=== PATIENT | female | born 1940 | race Caucasian/White ===

== ENCOUNTER → 2016-06-18 | Outpatient (CLI) | payer OTHER ==
[~2016-06-18] MED LIST: ASPEC325 PO; ATV5 PO; CALCTAB5 PO; DILT120T8 PO; FOLI1TAB7 PO; LEUC5TAB PO; OXYC-57 PO; PRD/1 PO; RANI300T2 PO
--- NOTE | 2016-06-18 11:04 | DIAGNOSTIC IMAGING REPORT ---
RIGHT HAND MIN 3 VIEWS ROUTINE CLINICAL HISTORY: Rheumatoid arthritis. Osteoporosis. COMPARISON: None. DISCUSSION: The bones are osteopenic. There are subluxations at the level of the second through fifth metacarpal phalangeal joints. There is deformity involving the tuft of the distal phalanx of the fourth finger which is felt to be chronic. No acute fractures are visualized. No definite bony erosions are evident. IMPRESSION: 1. No acute fractures 2. Osteopenia 3. Subluxations at the level of the second through fifth metacarpal phalangeal joints Electronically signed by: Fermin Campos M.D. 06/18/2016 11:03 AM Dictated Date/Time: 06/18/2016 11:01 AM
== END | disposition home or self-care (01) ==
LOC: C.RAD1850 10:37
PROVIDERS: ATTEND Internal Medicine Rheumatology
DX: D89.9 Disorder involving the immune mechanism, unspecified (principal); M06.9 Rheumatoid arthritis, unspecified; M79.641 Pain in right hand; M81.0 Age-related osteoporosis without current pathological fracture; Z79.899 Other long term (current) drug therapy; M85.841 Other specified disorders of bone density and structure, right hand

== ENCOUNTER → 2016-10-17 | Outpatient (CLI) | payer OTHER ==
[~2016-10-17] MED LIST changes: -OXYC-57 PO
[2016-10-17 10:06] LABS: BASO % 1.4 %; COMPLETE YES; EOS % 4.4 %; HEMATOCRIT 39.4 % (37-47); IG% 0.3 %; LYMPH % 42.1 %; LYMPH ABS # 2.94 K/uL (1.2-3.4); MEAN CORPUSCULAR HEMOGLOBIN 31.7 pg (25-34); MEAN CORPUSCULAR HGB CONC 33.8 g/dl (32-36); MEAN PLATELET VOLUME 8.9 fL (7.4-10.4); MONO % 9.3 %; NEUT % 42.5 %; PLATELET COUNT 292 K/uL (130-400); RED BLOOD COUNT 4.19 M/uL (4.2-5.4); WHITE BLOOD COUNT 6.98 K/uL (4.8-10.8)
[2016-10-17 10:20] LABS: CREATININE 0.82 mg/dl (0.60-1.20)
[2016-10-17 10:23] LABS: ALKALINE PHOSPHATASE 95 U/L (45-117); ALT/SGPT 28 U/L (12-78); AST/SGOT 20 U/L (15-37)
== END | disposition home or self-care (01) ==
LOC: C.LAB1850 08:58
PROVIDERS: ATTEND Internal Medicine Rheumatology
DX: M06.9 Rheumatoid arthritis, unspecified (principal); D89.9 Disorder involving the immune mechanism, unspecified

== ENCOUNTER → 2017-01-01 | Outpatient (CLI) | payer OTHER | END | disposition home or self-care (01) | LOC: C.PATHSPEC 12:50 | PROVIDERS: ATTEND Ophthalmology | DX: L82.1 Other seborrheic keratosis (principal) ==

== ENCOUNTER → 2017-01-16 | Outpatient (CLI) | payer OTHER ==
[2017-01-16 09:31] LABS: BASO % 1.6 %; BASO ABS # 0.12 K/uL (0-0.2); COMPLETE YES; EOS % 5.2 %; HEMATOCRIT 41.2 % (37-47); IG% 0.4 %; LYMPH % 42.9 %; LYMPH ABS # 3.19 K/uL (1.2-3.4); MEAN CELL VOLUME 94.9 fL (80-100); MEAN CORPUSCULAR HEMOGLOBIN 31.3 pg (25-34); MEAN PLATELET VOLUME 9.4 fL (7.4-10.4); MONO % 9.4 %; NEUT % 40.5 %; PLATELET COUNT 309 K/uL (130-400); RED BLOOD COUNT 4.34 M/uL (4.2-5.4); WHITE BLOOD COUNT 7.44 K/uL (4.8-10.8)
[2017-01-16 10:01] LABS: ALT/SGPT 29 U/L (12-78); AST/SGOT 24 U/L (15-37); CREATININE 0.91 mg/dl (0.60-1.20)
[2017-01-16 10:04] LABS: ALKALINE PHOSPHATASE 95 U/L (45-117)
== END | disposition home or self-care (01) ==
LOC: C.LAB1850 08:43
PROVIDERS: ATTEND Internal Medicine Rheumatology
DX: M06.9 Rheumatoid arthritis, unspecified (principal); Z79.899 Other long term (current) drug therapy; D89.9 Disorder involving the immune mechanism, unspecified

== ENCOUNTER → 2017-05-07 | Outpatient (CLI) | payer OTHER ==
[~2017-05-07] MED LIST changes: +APIX1TAB3 PO; -ASPEC325 PO; -ATV5 PO; +CALC600T37 PO; -CALCTAB5 PO; -DILT120T8 PO; +ETAN50IN2 SC; -FOLI1TAB7 PO; +FOLI1TAB8 PO; +LORA-741 PO; +LPR25 PO; +METH7.5T PO; +METO25TA56 PO; +METO50TA16 PO
--- NOTE | 2017-05-07 12:45 | DIAGNOSTIC IMAGING REPORT ---
CHEST 2 VIEWS ROUTINE HISTORY: Atrial fibrillation. COMPARISON: Chest 04/29/2017. FINDINGS: Trace right pleural effusion has improved. Mild emphysema. The heart is mildly enlarged. No evidence for pulmonary edema. No new focal lung consolidations to suggest pneumonia. Suture material within the right lung apex is again noted. IMPRESSION: Improvement in the trace right pleural effusion. Mild emphysema. Electronically signed by: Martinez Arreola M.D. 05/07/2017 12:43 PM Dictated Date/Time: 05/07/2017 12:42 PM
== END | disposition home or self-care (01) ==
LOC: C.RADBC 12:01
PROVIDERS: ATTEND Physician Assistant Medical
DX: I48.91 Unspecified atrial fibrillation (principal)

== ENCOUNTER 2017-05-08 15:02 | Inpatient (IN) | payer OTHER ==
[~2017-05-08] VITALS: Ht 160 cm; Wt 60.0 kg
[~2017-05-08 15:02] MED LIST changes: -METO25TA56 PO; -METO50TA16 PO
[2017-05-08] MEDS ORDERED: METOPROLOL TARTRATE 25 MG TAB PO STA (15:44)
[2017-05-08] MEDS ORDERED: METOPROLOL TARTRATE 1 MG/ML VIAL IV STA ×3 (15:44→17:10)
[2017-05-08 15:57] LABS: BASO % 0.9 %; EOS % 1.2 %; EOS ABS # 0.13 K/uL (0-0.5); HEMATOCRIT 41.1 % (37-47); HEMOGLOBIN 13.6 g/dL (12.0-16.0); IG# 0.04 K/uL (0.00-0.02); LYMPH % 21.1 %; LYMPH ABS # 2.33 K/uL (1.2-3.4); MEAN CELL VOLUME 96.5 fL (80-100); MEAN CORPUSCULAR HEMOGLOBIN 31.9 pg (25-34); MEAN CORPUSCULAR HGB CONC 33.1 g/dl (32-36); MEAN PLATELET VOLUME 9.8 fL (7.4-10.4); MONO % 11.1 %; MONO ABS # 1.22 K/uL (0.11-0.59); NEUT % 65.3 %; NEUT ABS # 7.22 K/uL (1.4-6.5); PLATELET COUNT 284 K/uL (130-400); RED CELL DISTRIBUTION WIDTH CV 14.4 % (11.5-14.5); RED CELL DISTRIBUTION WIDTH SD 50.6 fL (36.4-46.3); WHITE BLOOD COUNT 11.04 K/uL (4.8-10.8)
[2017-05-08 16:04] LABS: ALBUMIN 3.6 gm/dl (3.4-5.0); ALT/SGPT 74 U/L (12-78); BLOOD UREA NITROGEN 15 mg/dl (7-18); CALCIUM 9.1 mg/dl (8.5-10.1); CARBON DIOXIDE 25 mmol/L (21-32); CREATININE 0.98 mg/dl (0.60-1.20); GLUCOSE 154 mg/dl (70-99); SODIUM 137 mmol/L (136-145)
[2017-05-08 16:08] LABS: INR 1.1 (0.9-1.1); PTT PATIENT 26.8 SECONDS (21.0-31.0)
--- NOTE | 2017-05-08 16:08 | EMERGENCY ROOM VISIT NOTE ---
History Report prepared by Mervin: Magdalena Medina Under the Supervision of: Dr. Jalen Holbrook M.D. First contact with patient: 15:28 Chief Complaint: CARDIAC ASSESSMENT Stated Complaint: RECENT A-FIB, HR 130+, WEAKNESS, COUGH, SOB Nursing Triage Summary: patient states she was diagnosed with A. fib 1 week ago. has had shortness of breath since diagnosed. patient states she checked her heart rate and it has been high. PCP increased metoprolol. History of Present Illness The patient is a 76 year old white female with a past medical history of asthma , HTN, RA, HLD, reflux, pneumothorax, and thoracotomy who presents to the ED with a cc of shortness of breath beginning earlier today. The patient was diagnosed with A-fib 1 week ago and started on Eliquis. She saw her PCP yesterday who increased her beta angelito from 25mg to 50mg in the morning and 25mg at night. Today is the first day that she started this dosage. The patient states that she woke up this morning feeling short of breath that was worsened with walking around and exerting herself. She took her pulse and noticed that it was fast. She did not feel like her heart was racing. Negative LOC, recent falls, fevers, chills, cough, chest pain, nausea, vomiting, pain or swelling in legs. She did have a flu shot this year. Source of History: patient Onset: this morning Position: chest (respiratory) Quality: other (shortness of breath) Timing: constant Modifying Factors (Worsening): exertion Modifying Factors (Relieving): rest Associated Symptoms: No LOC, No fevers, No chills, No cough, No chest pain, No nausea, No vomiting Note: Pt denies pain or swelling in legs. Review of Systems See HPI for pertinent positives and negatives. A total of ten systems were reviewed and were otherwise negative. Past Medical & Surgical Medical Problems: (1) Atrial fibrillation with rapid ventricular response (2) Bronchitis (3) COPD (chronic obstructive pulmonary disease) (4) Pulmonary vascular congestion Family History Hypertension Social History Smoking Status: Former Smoker Alcohol Use: occasionally Marital Status: Housing Status: lives with family Occupation Status: retired Current/Historical Medications Scheduled Apixaban (Eliquis), 5 MG PO BID Calcium (Calcium), 600 MG PO QAM Etanercept (Enbrel), 50 MG SC WK Folic Acid (Folvite), 1 MG PO QAM Leucovorin Calcium (Leucovorin Calcium), 10 MG PO WK Lorazepam (Ativan), 0.5 MG PO HS Methotrexate (Trexall), 7.5 MG PO WK Metoprolol Tartrate (Lopressor) (Lopressor), 50 MG PO QAM Metoprolol Tartrate (Lopressor) (Lopressor), 25 MG PO QPM Prednisone (Prednisone), 3 MG PO QAM Ranitidine (Zantac), 300 MG PO QAM Allergies Coded Allergies: Morphine (Verified Adverse Reaction, Mild, NAUSEA, 05/08/17) Physical Exam Vital Signs Date Time Temp Pulse Resp B/P (MAP) Pulse Ox O2 Delivery O2 Flow Rate FiO2 05/08/17 18:32 113 18 143/105 96 Room Air 05/08/17 17:38 124 121/101 95 05/08/17 17:37 128 05/08/17 17:30 130 24 121/94 95 Room Air 05/08/17 17:30 131 135/109 05/08/17 16:54 132 114/90 05/08/17 16:53 134 24 114/90 96 Room Air 05/08/17 15:58 135 22 123/96 95 Room Air 05/08/17 15:53 130 120/89 05/08/17 15:33 95 Room Air 05/08/17 15:33 Room Air 05/08/17 15:32 130 05/08/17 15:08 36.7 132 18 138/94 98 Room Air Physical Exam GENERAL: Awake, alert, well-appearing, NAD HENT: Normocephalic, atraumatic. EYES: Normal conjunctiva. Sclera non-icteric. NECK: Supple. No nuchal rigidity. FROM. RESPIRATORY: CTAB, no rhonchi, wheezing, crackles CARDIAC: Tachycardic and irregular, no MRG ABDOMEN: Soft, NTND, BS+ MSK: No chest wall TTP, no LE edema NEURO: GCS 15, CN 2-12 intact, moves all 4s on command SKIN: No rash or jaundice noted. Medical Decision & Procedures ER Provider Diagnostic Interpretation: Radiology results as stated below per my review and radiologist interpretation: SINGLE VIEW CHEST CLINICAL HISTORY: Dyspnea. FINDINGS: An AP, portable, upright chest radiograph is compared to study dated 05/04/2017. The examination is degraded by portable technique and patient rotation. The heart is enlarged and there is atherosclerotic calcification of the thoracic and. There is mild pulmonary vascular congestion. Bibasilar airspace opacities likely represent atelectasis. No large pleural effusion is seen. Suture material is noted at the right apex and there is biapical scarring. No pneumothorax is seen. The skeletal structures are osteopenic. The bony thorax is grossly intact. Arthritic change is noted in the shoulders and thoracic spine. IMPRESSION: 1. Cardiomegaly with mild pulmonary vascular congestion. 2. Bibasilar airspace opacities likely represent atelectasis. Correlate clinically for evidence of superimposed pneumonia. 3. No large pleural effusion is identified. Electronically signed by: Josh España M.D. 05/08/2017 4:09 PM Dictated Date/Time: 05/08/2017 4:08 PM Laboratory Results 05/08/17 15:30 Red Blood Count 4.26, Mean Corpuscular Volume 96.5, Mean Corpuscular Hemoglobin 31.9, Mean Corpuscular Hemoglobin Concent 33.1, Mean Platelet Volume 9.8, Neutrophils (%) (Auto) 65.3, Lymphocytes (%) (Auto) 21.1, Monocytes (%) (Auto) 11.1, Eosinophils (%) (Auto) 1.2, Basophils (%) (Auto) 0.9, Neutrophils # (Auto ) 7.22, Lymphocytes # (Auto) 2.33, Monocytes # (Auto) 1.22, Eosinophils # (Auto ) 0.13, Basophils # (Auto) 0.10 05/08/17 15:30 Test 05/08/17 15:30 05/08/17 15:42 05/08/17 16:40 White Blood Count 11.04 K/uL (4.8-10.8) Red Blood Count 4.26 M/uL (4.2-5.4) Hemoglobin 13.6 g/dL (12.0-16.0) Hematocrit 41.1 % (37-47) Mean Corpuscular Volume 96.5 fL (80-100) Mean Corpuscular Hemoglobin 31.9 pg (25-34) Mean Corpuscular Hemoglobin Concent 33.1 g/dl (32-36) Platelet Count 284 K/uL (130-400) Mean Platelet Volume 9.8 fL (7.4-10.4) Neutrophils (%) (Auto) 65.3 % Lymphocytes (%) (Auto) 21.1 % Monocytes (%) (Auto) 11.1 % Eosinophils (%) (Auto) 1.2 % Basophils (%) (Auto) 0.9 % Neutrophils # (Auto) 7.22 K/uL (1.4-6.5) Lymphocytes # (Auto) 2.33 K/uL (1.2-3.4) Monocytes # (Auto) 1.22 K/uL (0.11-0.59) Eosinophils # (Auto) 0.13 K/uL (0-0.5) Basophils # (Auto) 0.10 K/uL (0-0.2) RDW Standard Deviation 50.6 fL (36.4-46.3) RDW Coefficient of Variation 14.4 % (11.5-14.5) Immature Granulocyte % (Auto) 0.4 % Immature Granulocyte # (Auto) 0.04 K/uL (0.00-0.02) Prothrombin Time 11.8 SECONDS (9.0-12.0) Prothromb Time International Ratio 1.1 (0.9-1.1) Activated Partial Thromboplast Time 26.8 SECONDS (21.0-31.0) Partial Thromboplastin Ratio 1.0 Anion Gap 7.0 mmol/L (3-11) Est Creatinine Clear Calc Drug Dose 40.4 ml/min Estimated GFR () 64.9 Estimated GFR (Non- 56.0 BUN/Creatinine Ratio 15.3 (10-20) Calcium Level 9.1 mg/dl (8.5-10.1) Total Bilirubin 1.1 mg/dl (0.2-1) Aspartate Amino Transf (AST/SGOT) 41 U/L (15-37) Alanine Aminotransferase (ALT/SGPT) 74 U/L (12-78) Alkaline Phosphatase 116 U/L (45-117) Troponin I < 0.015 ng/ml (0-0.045) Pro-B-Type Natriuretic Peptide 5141 pg/ml (0-1800) Total Protein 7.2 gm/dl (6.4-8.2) Albumin 3.6 gm/dl (3.4-5.0) Globulin 3.6 gm/dl (2.5-4.0) Albumin/Globulin Ratio 1.0 (0.9-2) Influenza Type A Antigen Neg for Influ A (NEG) Influenza Type B Antigen Neg for Influ B (NEG) Urine Color DK YELLOW Urine Appearance CLEAR (CLEAR) Urine pH 6.0 (4.5-7.5) Urine Specific [place] 1.023 (1.000-1.030) Urine Protein 1+ (NEG) Urine Glucose (UA) NEG (NEG) Urine Ketones 1+ (NEG) Urine Occult Blood 2+ (NEG) Urine Nitrite NEG (NEG) Urine Bilirubin NEG (NEG) Urine Urobilinogen NEG (NEG) Urine Leukocyte Esterase SMALL (NEG) Urine WBC (Auto) 10-30 /hpf (0-5) Urine RBC (Auto) >30 /hpf (0-4) Urine Hyaline Casts (Auto) 5-10 /lpf (0-5) Urine Epithelial Cells (Auto) 20-30 /lpf (0-5) Urine Bacteria (Auto) NEG (NEG) Laboratory results reviewed by me. Medications Administered Medications (Trade) Dose Ordered Sig/[place] Route Start Time Stop Time Status Last Admin Dose Admin Metoprolol Tartrate (Lopressor Tab) 25 mg ONE STAT PO 05/08/17 15:44 05/08/17 15:45 DC 05/08/17 16:32 25 MG Metoprolol Tartrate (Lopressor Iv) 5 mg NOW STAT IV 05/08/17 15:44 05/08/17 15:45 DC 05/08/17 15:53 5 MG Metoprolol Tartrate (Lopressor Iv) 5 mg NOW STAT IV 05/08/17 16:46 05/08/17 16:47 DC 05/08/17 16:54 5 MG Metoprolol Tartrate (Lopressor Iv) 5 mg NOW STAT IV 05/08/17 17:10 05/08/17 17:11 DC 05/08/17 17:30 5 MG Digoxin 250 mcg/ Syringe 10 ml @ 2 mls/min NOW ONCE IV 05/08/17 17:15 05/08/17 17:19 DC 05/08/17 17:37 2 MLS/MIN Ondansetron HCl (Zofran Inj) 4 mg STK-MED ONCE .ROUTE 05/08/17 18:50 05/08/17 18:51 DC 05/08/17 18:55 4 MG ECG Indication: SOB/dyspnea Rate (beats per minute): 132 Rhythm: atrial fibrillation (with RVR) Findings: other (normal QRS interval; normal axis; no overt STS changes or TWI) Change: Patient's electrocardiogram interpreted by me. ED Course 1528: The patient was evaluated in room B12B. A complete history and physical exam was performed. 1645: Upon reevaluation the patient's HR is still elevated but she is asymptomatic. 1709: I reassessed the patient at this time. I discussed the results and treatment plan with the patient. I answered all pertaining questions that she had. She expressed understanding and verbalized agreement. 1712: I discussed the patient's case with Dr. Escalante of [facility] cardiology. He recommended Digoxin. 1728: I spoke with Dr. Sosa. We discussed the patients case. The patient will be evaluated by the [facility] for further management. 1731: The patient is in agreement with the treatment plan. Medical Decision Differential diagnosis: Etiologies such as premature contractions, electrolyte abnormality, cardiac dysrhythmia, thyroid dysfunction, pulmonary embolism, infection, gastrointestinal, as well as others were entertained. The patient is a 76 year old white female with a past medical history of asthma , HTN, RA, HLD, reflux, pneumothorax, and thoracotomy who presents to the ED with a cc of shortness of breath beginning earlier today. Patient was seen and evaluated the bedside. Patient did complain of some shortness of breath. Patient states that she had some dyspnea on exertion but at rest she was fairly comfortable. Patient noticed that she had an elevated heart rate. Patient does have recent known history of atrial fibrillation. Patient was admitted and did have changed from diltiazem to metoprolol. Patient did have her recent medication change to where she was taking 25 twice a day was now taking 50 mg in the morning and then 25 mg in the evening. Patient did state that she took her home dose this morning. Patient has been on Elequis. This was started around the time of discharge which is approximately 1 week prior. Patient did have a by mouth loading dose of 25 mg and was given 5 subsequent doses of IV Lopressor. Patient still had persistent tachycardia. Patient was otherwise asymptomatic at rest and the patient did have stable blood pressures. I did speak with cardiology. They're recommended to dig load. Patient was given 250 mics IV. I did discuss the patient with the hospitalist to agreed to further evaluate and treat the patient. Patient's chest x-ray and labs did show some volume overload which was likely rate related. Medication Reconcilliation Current Medication List: was personally reviewed by me Blood Pressure Screening Patient's blood pressure: Normal blood pressure Consults Time Called: 1709 Consulting Physician: Dr. Escalante Returned Call: 1712 I discussed the patient's case with Dr. Escalante of [facility] cardiology. He recommended Digoxin. Additional Consults: Time Called: 171 Consulted Physician: Dr. Sosa Returned Call: 1728 Additional Comments: I spoke with Dr. Sosa. We discussed the patients case. The patient will be evaluated by the [facility] for further management. Impression Primary Impression: Atrial fibrillation with rapid ventricular response Additional Impressions: Dyspnea CHF (congestive heart failure) Critical Care I have personally spent greater than 50 minutes of critical care time in the direct management of this patient. This includes bedside care, interpretation of diagnostic studies, and testing, discussion with consultants, patient, and family members, and other required patient management activities. This 50 minutes is in excess of all separately billable procedures. Scribe Attestation The scribe's documentation has been prepared under my direction and personally reviewed by me in its entirety. I confirm that the note above accurately reflects all work, treatment, procedures, and medical decision making performed by me. Departure Information Dispostion Being Evaluated By Hospitalist Referrals Rd Madden M.D. (PCP) Patient Instructions [facility] Problem Qualifiers Additional Impressions: Dyspnea Dyspnea type: dyspnea on exertion Qualified Codes: R06.09 - Other forms of dyspnea CHF (congestive heart failure) Congestive heart failure type: diastolic Congestive heart failure chronicity : acute Qualified Codes: I50.31 - Acute diastolic (congestive) heart failure
[2017-05-08 16:09] LABS: ALKALINE PHOSPHATASE 116 U/L (45-117); AST/SGOT 41 U/L (15-37); TOTAL PROTEIN 7.2 gm/dl (6.4-8.2)
--- NOTE | 2017-05-08 16:11 | DIAGNOSTIC IMAGING REPORT ---
SINGLE VIEW CHEST CLINICAL HISTORY: Dyspnea. FINDINGS: An AP, portable, upright chest radiograph is compared to study dated 05/04/2017. The examination is degraded by portable technique and patient rotation. The heart is enlarged and there is atherosclerotic calcification of the thoracic and. There is mild pulmonary vascular congestion. Bibasilar airspace opacities likely represent atelectasis. No large pleural effusion is seen. Suture material is noted at the right apex and there is biapical scarring. No pneumothorax is seen. The skeletal structures are osteopenic. The bony thorax is grossly intact. Arthritic change is noted in the shoulders and thoracic spine. IMPRESSION: 1. Cardiomegaly with mild pulmonary vascular congestion. 2. Bibasilar airspace opacities likely represent atelectasis. Correlate clinically for evidence of superimposed pneumonia. 3. No large pleural effusion is identified. Electronically signed by: Josh España M.D. 05/08/2017 4:09 PM Dictated Date/Time: 05/08/2017 4:08 PM
[2017-05-08] MEDS ORDERED: METO25TA56 PO (16:25)
[2017-05-08] MEDS ORDERED: METO50TA16 PO (16:25)
[2017-05-08] MEDS ORDERED: DIGOXIN IV 250 MCG in SYRINGE 9 ML IV ONE (17:15)
[2017-05-08 17:24] LABS: INFLUENZA B ANTIGEN Neg for Influ B (NEG)
[2017-05-08] MEDS ORDERED: ONDANSETRON INJ 2 MG/ML 2 ML VIAL ONE (18:50)
--- NOTE | 2017-05-08 19:24 | History and Physical ---
History & Physical Date & Time of Service: May 08, 2017 at 18:54 Chief Complaint: Recent A-Fib, Hr 130+, Weakness, Cough, Sob Primary Care Physician: Rd Madden M.D. History of Present Illness Source: patient 76 y/o F Hx RA, HTN. Pt had URI symptoms one week prior and presented to her primary MD for evaluation. She was diagnosed with AF and sent to the ER for evaluation. Her rate was controlled with Metoprolol, she was placed on Eliquis and DCd. She did not revert to a sinus rhythm. The pt was feeling weak today and her son checked her pulse, noting that it was high. On arrival to the ER she had a HR of 140-150. This did not immediately slow down with 3 doses of 5mg Metoprolol. She was administered IV Digoxin. An XR was consistent with vascular congestion. She c/o a persistent cough and nausea. She vomited a small amount in the ER. She denies diaphoresis or a fever. Past Medical/Surgical History PMH: 1. Rheumatoid arthritis - treated with Prednisone and Enbrel 2. HTN 3. 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 Right-sided thoracotomy for pneumothorax 2. BL foot surgery Family History Hypertension father - CHF, COPD - age 79; also had valve replacement mother - age 60 - gangrene of her leg/sepsis/blood clots then Social History Former Smoker (quit 25 years ago; smoked 20 years, 1/2 ppd ) occasionally ETOH (5 children ) Smoking Status: Former Smoker Marital Status: Housing status: lives alone Occupational Status: retired Immunizations History of Influenza Vaccine: Yes Influenza Vaccine Date: Jan 29, 2009 History of Tetanus Vaccine?: Unknown History of Pneumococcal: Yes History of Hepatitis B Vaccine: Unknown Multi-Drug Resistant Organisms History of MDRO: No Allergies Coded Allergies: Morphine (Verified Adverse Reaction, Mild, NAUSEA, 05/08/17) Home Medications Scheduled Apixaban (Eliquis), 5 MG PO BID Calcium (Calcium), 600 MG PO QAM Etanercept (Enbrel), 50 MG SC WK Folic Acid (Folvite), 1 MG PO QAM Leucovorin Calcium (Leucovorin Calcium), 10 MG PO WK Lorazepam (Ativan), 0.5 MG PO HS Methotrexate (Trexall), 7.5 MG PO WK Metoprolol Tartrate (Lopressor) (Lopressor), 50 MG PO QAM Metoprolol Tartrate (Lopressor) (Lopressor), 25 MG PO QPM Prednisone (Prednisone), 3 MG PO QAM Ranitidine (Zantac), 300 MG PO QAM Review of Systems Constitutional: + weakness, + fatigue, No fever, No chills, No sweats Eyes: No worsening of vision ENT: + nasal symptoms, No hearing loss, No unusual epistaxis Respiratory: + cough, + sputum, No wheezing, No shortness of breath, No dyspnea on exertion Cardiovascular: + palpitations, No chest pain, No orthopnea, No PND Abdomen: + nausea, + vomiting, No pain Musculoskeletal: No joint pain Genitourinary - Female: No dysuria, No urinary frequency, No urinary urgency Neurologic: No memory loss, No paralysis, No weakness Psychiatric: No depression symptoms Endocrine: + fatigue Hematologic / Lymphatic: No abnormal bleeding/bruising Integumentary: No rash Physical Exam Vital Signs Date Time Temp Pulse Resp B/P (MAP) Pulse Ox O2 Delivery O2 Flow Rate FiO2 05/08/17 18:32 113 18 143/105 96 Room Air 05/08/17 17:38 124 121/101 95 05/08/17 17:37 128 05/08/17 17:30 130 24 121/94 95 Room Air 05/08/17 17:30 131 135/109 05/08/17 16:54 132 114/90 05/08/17 16:53 134 24 114/90 96 Room Air 05/08/17 15:58 135 22 123/96 95 Room Air 05/08/17 15:53 130 120/89 05/08/17 15:33 95 Room Air 05/08/17 15:33 Room Air 05/08/17 15:32 130 05/08/17 15:08 36.7 132 18 138/94 98 Room Air General Appearance: WD/WN, no apparent distress Head: normocephalic Eyes: normal inspection ENT: normal ENT inspection, pharynx normal Neck: supple, no JVD Respiratory/Chest: chest non-tender, lungs clear, normal breath sounds Cardiovascular: no edema, no gallop, + irregularly irregular Abdomen/GI: normal bowel sounds, non tender, soft Back: normal inspection, no CVA tenderness Extremities/Musculoskelatal: normal inspection, no calf tenderness, normal capillary refill, no pedal edema, normal range of motion Neurologic/Psych: uppers edge burnisher II-XII nml as tested, no motor/sensory deficits, alert, oriented x 3 Skin: normal color Diagnostics Laboratory Results Results Past 24 Hours Test 05/08/17 15:30 05/08/17 15:42 05/08/17 16:40 Range/Units White Blood Count 11.04 4.8-10.8 K/uL Red Blood Count 4.26 4.2-5.4 M/uL Hemoglobin 13.6 12.0-16.0 g/dL Hematocrit 41.1 37-47 % Mean Corpuscular Volume 96.5 80-100 fL Mean Corpuscular Hemoglobin 31.9 25-34 pg Mean Corpuscular Hemoglobin Concent 33.1 32-36 g/dl Platelet Count 284 130-400 K/uL Mean Platelet Volume 9.8 7.4-10.4 fL Neutrophils (%) (Auto) 65.3 % Lymphocytes (%) (Auto) 21.1 % Monocytes (%) (Auto) 11.1 % Eosinophils (%) (Auto) 1.2 % Basophils (%) (Auto) 0.9 % Neutrophils # (Auto) 7.22 1.4-6.5 K/uL Lymphocytes # (Auto) 2.33 1.2-3.4 K/uL Monocytes # (Auto) 1.22 0.11-0.59 K/uL Eosinophils # (Auto) 0.13 0-0.5 K/uL Basophils # (Auto) 0.10 0-0.2 K/uL RDW Standard Deviation 50.6 36.4-46.3 fL RDW Coefficient of Variation 14.4 11.5-14.5 % Immature Granulocyte % (Auto) 0.4 % Immature Granulocyte # (Auto) 0.04 0.00-0.02 K/uL Prothrombin Time 11.8 9.0-12.0 SECONDS Prothromb Time International Ratio 1.1 0.9-1.1 Activated Partial Thromboplast Time 26.8 21.0-31.0 SECONDS Partial Thromboplastin Ratio 1.0 Sodium Level 137 136-145 mmol/L Potassium Level 4.0 3.5-5.1 mmol/L Chloride Level 105 98-107 mmol/L Carbon Dioxide Level 25 21-32 mmol/L Anion Gap 7.0 3-11 mmol/L Blood Urea Nitrogen 15 7-18 mg/dl Creatinine 0.98 0.60-1.20 mg/dl Est Creatinine Clear Calc Drug Dose 40.4 ml/min Estimated GFR () 64.9 Estimated GFR (Non- 56.0 BUN/Creatinine Ratio 15.3 10-20 Random Glucose 154 70-99 mg/dl Calcium Level 9.1 8.5-10.1 mg/dl Total Bilirubin 1.1 0.2-1 mg/dl Aspartate Amino Transf (AST/SGOT) 41 15-37 U/L Alanine Aminotransferase (ALT/SGPT) 74 12-78 U/L Alkaline Phosphatase 116 45-117 U/L Troponin I < 0.015 0-0.045 ng/ml Pro-B-Type Natriuretic Peptide 5141 0-1800 pg/ml Total Protein 7.2 6.4-8.2 gm/dl Albumin 3.6 3.4-5.0 gm/dl Globulin 3.6 2.5-4.0 gm/dl Albumin/Globulin Ratio 1.0 0.9-2 Influenza Type A Antigen Neg for Influ A NEG Influenza Type B Antigen Neg for Influ B NEG Urine Color DK YELLOW Urine Appearance CLEAR CLEAR Urine pH 6.0 4.5-7.5 Urine Specific [place] 1.023 1.000-1.030 Urine Protein 1+ NEG Urine Glucose (UA) NEG NEG Urine Ketones 1+ NEG Urine Occult Blood 2+ NEG Urine Nitrite NEG NEG Urine Bilirubin NEG NEG Urine Urobilinogen NEG NEG Urine Leukocyte Esterase SMALL NEG Urine WBC (Auto) 10-30 0-5 /hpf Urine RBC (Auto) >30 0-4 /hpf Urine Hyaline Casts (Auto) 5-10 0-5 /lpf Urine Epithelial Cells (Auto) 20-30 0-5 /lpf Urine Bacteria (Auto) NEG NEG Diagnostic Radiology CXR: 1. Cardiomegaly with mild pulmonary vascular congestion. 2. Bibasilar airspace opacities likely represent atelectasis. Correlate clinically for evidence of superimposed pneumonia. 3. No large pleural effusion is identified. EKG AF/RVR Impression Assessment and Plan 76 y/o F Hx RA, HTN. Pt had URI symptoms one week prior and presented to her primary MD for evaluation. She was diagnosed with AF and sent to the ER for evaluation. Her rate was controlled with Metoprolol, she was placed on Eliquis and DCd. She did not revert to a sinus rhythm. The pt was feeling weak today and her son checked her pulse, noting that it was high. On arrival to the ER she had a HR of 140-150. This did not immediately slow down with 3 doses of 5mg Metoprolol. She was administered IV Digoxin. An XR was consistent with vascular congestion. She c/o a persistent cough and nausea. She vomited a small amount in the ER. She denies diaphoresis or a fever. 1) Rapid AF - Pt provided with IV Metoprolol and IV Dig so that we will give her some time to slow down. The cardiology service was contacted and will consider cardioversion if there is no improvement. She will be maintained on Eliquis. 2) RA - cont Prednisone - Enbrel as outpt 3) HTN - cont Metoprolol PO with holding parameters 4) Vascular congestion on CXR with weakness and persistent cough - there is no significant JVD - she may be developing overload from uncontrolled AF. Would consider diuretic administration if SOB progresses - may resolve with rate control. Full code - anticoagulated with Eliquis Total time for this admit including review of labs, meds, imaging, recent records - discussion with pt and ER attending - 38 min Level of Care Telemetry Resuscitation Status FULL RESUSCITATION VTE Prophylaxis Given or contraindicated: Other Anticoagulation
[2017-05-08] MEDS ORDERED: ACETAMINOPHEN 325 MG TAB PO PRN (19:30)
[2017-05-08] MEDS ORDERED: ALUMINUM/MAGNESIUM/SIMETH (MAALOX MAX) 30 ML UDC PO PRN (19:30)
[2017-05-08] MEDS ORDERED: MAGNESIUM HYDROXIDE SUSP 30 ML UDC PO PRN (19:30)
[2017-05-08] MEDS ORDERED: ONDANSETRON INJ 2 MG/ML 2 ML VIAL IV PRN (19:30)
[2017-05-08] MEDS ORDERED: POLYETHYLENE (MIRALAX) 17 GM PACK PO PRN (19:30)
[2017-05-08] MEDS ORDERED: IV FLUIDS COMPLETED PRN (20:30)
[2017-05-08 20:45] VITALS: BP 120/75; PULSE 124; TEMP 37.5; O2SAT 91; Ht 160 cm; Wt 60.0 kg
[2017-05-08] MEDS ORDERED: METOPROLOL TARTRATE 25 MG TAB PO SCH (21:00)
[2017-05-08] MEDS: LORAZEPAM 0.5 MG TAB PO SCH (22:17)
[2017-05-08] MEDS: APIXABAN 2.5 MG TAB PO SCH (22:17)
[2017-05-08 23:25] VITALS: BP 127/80; PULSE 94; TEMP 37.6; O2SAT 93
[2017-05-09] VITALS (8 sets, daily range): BP systolic 113–126; BP diastolic 73–81; PULSE 62–120; TEMP 37–37.4; O2SAT 90–95
[2017-05-09] MEDS: APIXABAN 2.5 MG TAB PO SCH ×2 (08:49→21:42)
[2017-05-09] MEDS: RANITIDINE HCL 150 MG TAB PO SCH (08:50)
[2017-05-09] MEDS ORDERED: METOPROLOL TARTRATE 50 MG TAB PO SCH (09:00)
--- NOTE | 2017-05-09 09:54 | Cardiology Consultation ---
Cardiology Consultation Date of Consultation: May 09, 2017. Requesting Physician: Sheila Reason for Consultation: AF with RVR Pt evaluation today including: conversation w/ patient, physical exam, chart review, lab review, review of studies, review of inpatient medication list, conversation w/ attending History of Present Illness The patient is a 76-year-old woman with a recent admission for atrial fibrillation who was seen by her primary care physician yesterday. At that time the patient had noted some exercise intolerance and was discovered to have elevated heart rates. She was prescribed a higher dose of metoprolol but over the course of the next 24 hours she fell worse continue, continue to have high heart rates and was evaluated at [facility]. She also had an element of dyspnea on exertion. She has not had dizziness or lightheadedness. She is not aware of any palpitations. She is not aware of any high heart rates in the she measures them with her home blood pressure cuff. She states that her heart rates have been high since her prior discharge. Normally she exercises on a routine basis. She is accustomed to ambulating up to 3 miles daily. Recently she has not been able to ambulate as far primarily due to fatigue. She denies any orthopnea. She has not noticed any swelling in her lower extremities. She has not report any symptoms of chest discomfort. She has been compliant with her medications including Eliquis. Past Medical/Surgical History Asthma Gastroesophageal reflux Hyperlipidemia Rheumatoid arthritis Hypertension Cavernous Carotid aneurysm Osteoporosis Secondary hyperparathyroidism Atrial fibrillation Surgical history Cataract Foot surgery Lung resection Family History Hypertension Social History Smoking Status: Former Smoker History of Alcohol Use: No Currently lives independently Review of Systems No recent constitutional symptoms such as fevers or chills All Other Systems: Reviewed and Negative Allergies Coded Allergies: Morphine (Verified Adverse Reaction, Mild, NAUSEA, 05/08/17) Medications Current Inpatient Medications Medications (Trade) Dose Ordered Sig/[place] Route Start Time Stop Time Status Last Admin Dose Admin Folic Acid (Folvite Tab) 1 mg QAM PO 05/09/17 09:00 06/08/17 08:59 05/09/17 08:50 1 MG Lorazepam (Ativan Tab) 0.5 mg HS PO 05/08/17 21:00 06/07/17 20:59 05/08/17 22:17 0.5 MG Metoprolol Tartrate (Lopressor Tab) 25 mg QPM PO 05/08/17 21:00 06/07/17 20:59 05/08/17 22:18 25 MG Metoprolol Tartrate (Lopressor Tab) 50 mg QAM PO 05/09/17 09:00 06/08/17 08:59 05/09/17 08:51 50 MG Prednisone (PredniSONE TAB) 3 mg QAM PO 05/09/17 09:00 06/08/17 08:59 05/09/17 08:50 3 MG Apixaban (Eliquis Tab) 5 mg BID PO 05/08/17 21:00 06/07/17 20:59 05/09/17 08:49 5 MG Ranitidine HCl (zANTac TAB) 300 mg QAM PO 05/09/17 09:00 06/08/17 08:59 05/09/17 08:50 300 MG Acetaminophen (Tylenol Tab) 650 mg Q4H PRN PO 05/08/17 19:30 06/07/17 19:29 Al Hydrox/Mg Hydrox/Simethicone (Maalox Max Susp) 15 ml Q4H PRN PO 05/08/17 19:30 06/07/17 19:29 Magnesium Hydroxide (Milk Of Magnesia Susp) 30 ml Q12H PRN PO 05/08/17 19:30 06/07/17 19:29 Ondansetron HCl (Zofran Inj) 4 mg Q6H PRN IV 05/08/17 19:30 06/07/17 19:29 Polyethylene (Miralax Powder Packet) 17 gm DAILY PRN PO 05/08/17 19:30 06/07/17 19:29 Miscellaneous (Iv Fluids Completed) 1 ea PRN PRN N/A 05/08/17 20:30 05/08/18 20:29 Physical Exam Vital Signs Past 12 Hours Date Time Temp Pulse Resp B/P (MAP) Pulse Ox O2 Delivery O2 Flow Rate FiO2 05/09/17 08:00 Room Air 05/09/17 07:44 37.1 105 20 121/76 (91) 90 Room Air 05/09/17 04:00 Room Air 05/09/17 03:40 37.3 96 18 126/73 (90) 95 Room Air 05/09/17 00:00 Room Air 05/08/17 23:25 37.6 94 16 127/80 (96) 93 Room Air She is alert and oriented x3. Mood affect appear normal. She answered all questions appropriately. HEENT: Sclerae are anicteric. Pupils are equal and reactive to light and accommodation. Extraocular movements were intact. Neuro: Cranial nerves intact Neck: Examination of the submandibular region did not reveal any significant lymphadenopathy. Carotids are palpable bilaterally and free of bruits on auscultation. There was no evidence of jugular venous distention. The thyroid was not enlarged. Lungs: Lungs are clear to auscultation bilaterally. There are no rales wheezes or rhonchi. She has normal respiratory effort without use of accessory muscles. There is normal pulmonary excursion. Cardiac: The rhythm was irregular. S1 and S2 were normal. There are no murmurs on examination. The PMI was not markedly displaced on palpation. Abdomen: The abdomen was soft and nontender. Extremities: Patient has bilateral radial pulses that are equal in intensity. There is no evidence cyanosis or clubbing. There was no evidence of significant peripheral edema bilaterally. Skin: There are no rashes noted on examination today. Data Laboratory Results: Last 24 Hours Test 05/08/17 15:30 05/08/17 15:42 05/08/17 16:40 05/09/17 00:17 White Blood Count 11.04 K/uL Red Blood Count 4.26 M/uL Hemoglobin 13.6 g/dL Hematocrit 41.1 % Mean Corpuscular Volume 96.5 fL Mean Corpuscular Hemoglobin 31.9 pg Mean Corpuscular Hemoglobin Concent 33.1 g/dl Platelet Count 284 K/uL Mean Platelet Volume 9.8 fL Neutrophils (%) (Auto) 65.3 % Lymphocytes (%) (Auto) 21.1 % Monocytes (%) (Auto) 11.1 % Eosinophils (%) (Auto) 1.2 % Basophils (%) (Auto) 0.9 % Neutrophils # (Auto) 7.22 K/uL Lymphocytes # (Auto) 2.33 K/uL Monocytes # (Auto) 1.22 K/uL Eosinophils # (Auto) 0.13 K/uL Basophils # (Auto) 0.10 K/uL RDW Standard Deviation 50.6 fL RDW Coefficient of Variation 14.4 % Immature Granulocyte % (Auto) 0.4 % Immature Granulocyte # (Auto) 0.04 K/uL Prothrombin Time 11.8 SECONDS Prothromb Time International Ratio 1.1 Activated Partial Thromboplast Time 26.8 SECONDS Partial Thromboplastin Ratio 1.0 Sodium Level 137 mmol/L Potassium Level 4.0 mmol/L Chloride Level 105 mmol/L Carbon Dioxide Level 25 mmol/L Anion Gap 7.0 mmol/L Blood Urea Nitrogen 15 mg/dl Creatinine 0.98 mg/dl Est Creatinine Clear Calc Drug Dose 40.4 ml/min Estimated GFR () 64.9 Estimated GFR (Non- 56.0 BUN/Creatinine Ratio 15.3 Random Glucose 154 mg/dl Calcium Level 9.1 mg/dl Total Bilirubin 1.1 mg/dl Aspartate Amino Transf (AST/SGOT) 41 U/L Alanine Aminotransferase (ALT/SGPT) 74 U/L Alkaline Phosphatase 116 U/L Troponin I < 0.015 ng/ml < 0.015 ng/ml Pro-B-Type Natriuretic Peptide 5141 pg/ml Total Protein 7.2 gm/dl Albumin 3.6 gm/dl Globulin 3.6 gm/dl Albumin/Globulin Ratio 1.0 Influenza Type A Antigen Neg for Influ A Influenza Type B Antigen Neg for Influ B Urine Color DK YELLOW Urine Appearance CLEAR Urine pH 6.0 Urine Specific [place] 1.023 Urine Protein 1+ Urine Glucose (UA) NEG Urine Ketones 1+ Urine Occult Blood 2+ Urine Nitrite NEG Urine Bilirubin NEG Urine Urobilinogen NEG Urine Leukocyte Esterase SMALL Urine WBC (Auto) 10-30 /hpf Urine RBC (Auto) >30 /hpf Urine Hyaline Casts (Auto) 5-10 /lpf Urine Epithelial Cells (Auto) 20-30 /lpf Urine Bacteria (Auto) NEG Imaging: Chest x-ray demonstrated mild pulmonary vascular congestion EKG: Atrial fibrillation with rapid ventricular response Telemetry reviewed: Atrial fibrillation with rapid ventricular response Assessment & Plan 1. Atrial fibrillation: The patient continues to have poorly controlled ventricular rates and symptoms related to her arrhythmia and high heart rates. She also may have an element of pulmonary vascular congestion as result. She seems to have reasonable control the time of her discharge but clearly this was not adequate. She has had her beta-angelito dose increased. She did receive 1 dose of digoxin last evening. Think a better overall strategy would be continued increase in her beta-angelito and possible addition of her prior calcium channel angelito. This was discontinued during her last hospitalization in favor of beta-blockade. She has been continued on systemic anticoagulation. However, she has not been on it long enough to affect cardioversion without a CARLOS. As such, I think more aggressive rate control would be preferable at this point in time. 2. Acute decompensated left ventricular systolic failure: She likely has an element of vascular congestion. This was true on exam, x-ray and laboratory study. Her proBNP was elevated. I think she would benefit from at least a single dose of diuretic. We can continue to monitor symptoms and exam afterwards 3. Cardiomyopathy: She was noted to have reduced LV systolic function during her last admission. The hope was that with better control of her ventricular rates and time she would affect improvement and hopefully normalization of her LV function. Do not think she requires any ischemic evaluation currently. I think our goal would again would be rate control and re-evaluation at a later date.
[2017-05-09] MEDS ORDERED: FUROSEMIDE INJ 20 MG in SYRINGE 0 ML IV ONE (10:15)
[2017-05-09] MEDS ORDERED: NURSING VERBAL MED ORDER ONE (12:00)
[2017-05-09] MEDS: CEFTRIAXONE SOD INJ 1 GM in DEXTROSE 5% ADD-VANTAGE 50ML 50 ML IV SCH (14:48)
--- NOTE | 2017-05-09 15:53 | Progress Note ---
Subjective Date of Service: May 09, 2017. Subjective Pt evaluation today including: conversation w/ patient, physical exam, chart review, lab review, conversation w/ instructional design consultant Pain: pain is controlled, patient is sitting on bed comfortable PO Intake: by mouth intake is adequate Voiding: no voiding problems Patient states that she has been coughing for about 3 weeks She has no orthopnea but mainly exertional dyspnea Problem List Medical Problems: (1) Dyspnea Status: Acute Review of Systems Constitutional: No see HPI, No fever, No chills, No sweats, No weight loss, No weakness, No fatigue, No problem reported Eyes: No see HPI, No worsening of vision, No eye pain, No redness, No discharge , No diplopia, No problem reported ENT: No see HPI, No hearing loss, No unusual epistaxis, No nasal symptoms, No sore throat, No tinnitus, No dental problems, No trouble swallowing, No problem reported Respiratory: + cough, + dyspnea on exertion, No see HPI, No sputum, No wheezing , No shortness of breath, No dyspnea at rest, No hemoptysis, No problem reported Cardiac: No see HPI, No chest pain, No orthopnea, No PND, No edema, No claudication, No palpitations, No problem reported Breast: No see HPI, No breast lump, No change in shape, No nipple discharge, No breast pain, No problem reported Abdomen: No see HPI, No pain, No nausea, No vomiting, No diarrhea, No constipation, No GI bleeding, No problem reported Musculoskeletal: No see HPI, No joint pain, No muscle pain, No swelling, No calf pain, No problem reported Female : No see HPI, No dysuria, No urinary frequency, No hematuria, No incontinence, No abnormal vaginal bleeding, No vaginal discharge, No problem reported Neurologic: No see HPI, No memory loss, No paralysis, No weakness, No numbness/ tingling, No vertigo, No balance problems, No problem reported Psychiatric: No see HPI, No depression symptoms, No anhedonism, No anxiety, No insomnia, No substance abuse, No problem reported Endo: No see HPI, No fatigue, No excessive thirst, No excessive urination, No problem reported Skin: No see HPI, No rash, No itch, No new/changing skin lesions, No color change, No bleeding, No problem reported Objective Vital Signs Date Time Temp Pulse Resp B/P (MAP) Pulse Ox O2 Delivery O2 Flow Rate FiO2 05/09/17 12:00 Room Air 05/09/17 11:31 37.3 117 18 113/75 (88) 94 Room Air 05/09/17 08:00 Room Air 05/09/17 07:44 37.1 105 20 121/76 (91) 90 Room Air 05/09/17 04:00 Room Air 05/09/17 03:40 37.3 96 18 126/73 (90) 95 Room Air 05/09/17 00:00 Room Air 05/08/17 23:25 37.6 94 16 127/80 (96) 93 Room Air 05/08/17 20:45 37.5 124 18 120/75 91 Room Air 05/08/17 19:32 121 05/08/17 18:32 113 18 143/105 96 Room Air 05/08/17 17:38 124 121/101 95 05/08/17 17:37 128 05/08/17 17:30 130 24 121/94 95 Room Air 05/08/17 17:30 131 135/109 05/08/17 16:54 132 114/90 05/08/17 16:53 134 24 114/90 96 Room Air 05/08/17 15:58 135 22 123/96 95 Room Air 05/08/17 15:53 130 120/89 05/08/17 15:33 95 Room Air 05/08/17 15:33 Room Air 05/08/17 15:32 130 Physical Exam General Appearance: WD/WN, no apparent distress Eyes: normal inspection, EOMI ENT: normal ENT inspection, hearing grossly normal Neck: supple Respiratory/Chest: chest non-tender, + decreased breath sounds, + crackles Cardiovascular: no edema, no gallop, no JVD, no murmur, + tachycardia, + irregularly irregular Abdomen: normal bowel sounds, non tender, soft, no organomegaly, no pulsatile mass Extremities: normal range of motion, non-tender, normal inspection, no pedal edema, no calf tenderness Neurologic/Psychiatric: fire observer II-XII nml as tested, no motor/sensory deficits, alert, normal mood/affect, oriented x 3 Skin: normal color, warm/dry, no rash Laboratory Results Last 24 Hours Test 05/08/17 15:30 05/08/17 15:42 05/08/17 16:40 05/09/17 00:17 White Blood Count 11.04 K/uL Red Blood Count 4.26 M/uL Hemoglobin 13.6 g/dL Hematocrit 41.1 % Mean Corpuscular Volume 96.5 fL Mean Corpuscular Hemoglobin 31.9 pg Mean Corpuscular Hemoglobin Concent 33.1 g/dl Platelet Count 284 K/uL Mean Platelet Volume 9.8 fL Neutrophils (%) (Auto) 65.3 % Lymphocytes (%) (Auto) 21.1 % Monocytes (%) (Auto) 11.1 % Eosinophils (%) (Auto) 1.2 % Basophils (%) (Auto) 0.9 % Neutrophils # (Auto) 7.22 K/uL Lymphocytes # (Auto) 2.33 K/uL Monocytes # (Auto) 1.22 K/uL Eosinophils # (Auto) 0.13 K/uL Basophils # (Auto) 0.10 K/uL RDW Standard Deviation 50.6 fL RDW Coefficient of Variation 14.4 % Immature Granulocyte % (Auto) 0.4 % Immature Granulocyte # (Auto) 0.04 K/uL Prothrombin Time 11.8 SECONDS Prothromb Time International Ratio 1.1 Activated Partial Thromboplast Time 26.8 SECONDS Partial Thromboplastin Ratio 1.0 Sodium Level 137 mmol/L Potassium Level 4.0 mmol/L Chloride Level 105 mmol/L Carbon Dioxide Level 25 mmol/L Anion Gap 7.0 mmol/L Blood Urea Nitrogen 15 mg/dl Creatinine 0.98 mg/dl Est Creatinine Clear Calc Drug Dose 40.4 ml/min Estimated GFR () 64.9 Estimated GFR (Non- 56.0 BUN/Creatinine Ratio 15.3 Random Glucose 154 mg/dl Calcium Level 9.1 mg/dl Total Bilirubin 1.1 mg/dl Aspartate Amino Transf (AST/SGOT) 41 U/L Alanine Aminotransferase (ALT/SGPT) 74 U/L Alkaline Phosphatase 116 U/L Troponin I < 0.015 ng/ml < 0.015 ng/ml Pro-B-Type Natriuretic Peptide 5141 pg/ml Total Protein 7.2 gm/dl Albumin 3.6 gm/dl Globulin 3.6 gm/dl Albumin/Globulin Ratio 1.0 Influenza Type A Antigen Neg for Influ A Influenza Type B Antigen Neg for Influ B Urine Color DK YELLOW Urine Appearance CLEAR Urine pH 6.0 Urine Specific [place] 1.023 Urine Protein 1+ Urine Glucose (UA) NEG Urine Ketones 1+ Urine Occult Blood 2+ Urine Nitrite NEG Urine Bilirubin NEG Urine Urobilinogen NEG Urine Leukocyte Esterase SMALL Urine WBC (Auto) 10-30 /hpf Urine RBC (Auto) >30 /hpf Urine Hyaline Casts (Auto) 5-10 /lpf Urine Epithelial Cells (Auto) 20-30 /lpf Urine Bacteria (Auto) NEG Assessment and Plan 76 year old female presented to the ED with cough, upper respiratory tract symptoms, A. fib with recurrent RVR Assessment/plan A. fib/RVR , improved after increasing to angelito, received digoxin in the ED. Cardiology consult appreciated, Dr. Dougherty increased her Beta angelito Continued and Eliquis. Cough and URTI, questionable Vascular congestion could be secondary to fluid overload but due to immune compromise status would like to order a CT chest to further evaluate the B/L lower lung density We'll empirically treat with ceftriaxone and azithromycin, will add lactobacillus RA , immune compromised cont Prednisone, no need for stress dose at this point Continue Enbrel as outpt HTN cont Metoprolol PO was increased by supervisor paper testing and possibly will add Cardizem if needed DVT prophylaxis, on Eliquis Full code Continued [facility] stay due to: multiple IV medications needed
[2017-05-09] MEDS: LACTOBACILLUS ACIDOPHILUS 1 GM PACK PO SCH (16:29)
--- NOTE | 2017-05-09 16:33 | DIAGNOSTIC IMAGING REPORT ---
CT SCAN OF THE CHEST WITHOUT IV CONTRAST CLINICAL HISTORY: Cough. COMPARISON STUDY: Chest x-ray dated 05/08/2017. TECHNIQUE: CT scan of the thorax was performed from the thoracic inlet to the upper abdomen. Images are reviewed in the axial, sagittal, and coronal planes. IV contrast was not administered for this examination. A dose lowering technique was utilized adhering to the principles of ALARA. CT DOSE: 188.31 mGy.cm FINDINGS: Thyroid: Imaged portions of the thyroid gland are normal in size and attenuation. Thoracic aorta: There is mild atherosclerotic calcification of the thoracic aorta, which is normal in caliber and demonstrates standard 3-vessel arch anatomy. Foci of intravenous gas are located in the lower neck, likely related to IV placement. Heart: The heart is enlarged and there is a small pericardial effusion. The coronary arteries are densely calcified. The main pulmonary arteries are mildly enlarged suggesting pulmonary artery hypertension. Lungs and pleural spaces: There are small pleural effusions with associated atelectasis. No airspace consolidation is seen typical for pneumonia. Suture material is seen at the right apex and in the superior segment of the right lower lobe. The trachea and central airways are patent. Mediastinum: There are subcentimeter mediastinal lymph nodes. These are not pathologically enlarged by size criteria. Silke: Not well assessed without IV contrast. Axillae: There is no axillary lymphadenopathy. Upper abdomen: There is a tiny hiatal hernia. Small hepatic cysts measure up to 1.6 cm. Skeletal structures: The skeletal structures are osteopenic. Degenerative change and mild hyperkyphosis are noted in the thoracic spine. No lytic or blastic bony lesions are seen. Postoperative change is suggested in the right sided ribs. IMPRESSION: 1. Small pleural effusions with associated atelectasis. 2. There is no airspace consolidation typical for pneumonia. 3. Cardiomegaly and small pericardial effusion. 4. Postoperative change is noted in the right lung. Correlation with the patient's surgical history will be required. 5. Additional findings as above. Electronically signed by: Josh España M.D. 05/09/2017 4:31 PM Dictated Date/Time: 05/09/2017 4:27 PM
[2017-05-09 21:07] LABS: CALCIUM 8.7 mg/dl (8.5-10.1); CREATININE 0.95 mg/dl (0.60-1.20); POTASSIUM 3.7 mmol/L (3.5-5.1)
[2017-05-09] MEDS: METOPROLOL TARTRATE 50 MG TAB PO SCH (21:42)
[2017-05-09] MEDS: LORAZEPAM 0.5 MG TAB PO SCH (21:43)
[2017-05-09] MEDS ORDERED: METOPROLOL TARTRATE 1 MG/ML VIAL IV STA (23:35)
[2017-05-10] VITALS (10 sets, daily range): BP systolic 105–123; BP diastolic 64–84; PULSE 82–119; TEMP 36.5–37.7; O2SAT 92–96
[2017-05-10 05:59] LABS: BASO % 0.7 %; BASO ABS # 0.08 K/uL (0-0.2); EOS % 2.5 %; HEMATOCRIT 37.3 % (37-47); HEMOGLOBIN 12.4 g/dL (12.0-16.0); IG# 0.06 K/uL (0.00-0.02); LYMPH % 27.3 %; LYMPH ABS # 3.28 K/uL (1.2-3.4); MEAN CELL VOLUME 95.2 fL (80-100); MEAN CORPUSCULAR HEMOGLOBIN 31.6 pg (25-34); MEAN CORPUSCULAR HGB CONC 33.2 g/dl (32-36); MEAN PLATELET VOLUME 9.6 fL (7.4-10.4); MONO % 12.7 %; MONO ABS # 1.53 K/uL (0.11-0.59); NEUT % 56.3 %; NEUT ABS # 6.76 K/uL (1.4-6.5); PLATELET COUNT 230 K/uL (130-400); RED CELL DISTRIBUTION WIDTH SD 48.6 fL (36.4-46.3); WHITE BLOOD COUNT 12.01 K/uL (4.8-10.8)
[2017-05-10 06:43] LABS: ALBUMIN 2.7 gm/dl (3.4-5.0); CALCIUM 8.7 mg/dl (8.5-10.1); CREATININE 0.86 mg/dl (0.60-1.20); POTASSIUM 3.8 mmol/L (3.5-5.1)
[2017-05-10 06:45] LABS: TOTAL PROTEIN 6.5 gm/dl (6.4-8.2)
--- NOTE | 2017-05-10 08:15 | Cardiology Follow-Up ---
Subjective Date of Service: May 10, 2017. Pt evaluation today including: conversation w/ patient, physical exam, chart review, lab review, review of studies, review of inpatient medication list History of Present Illness This morning the patient claims to be feeling well. She states her breathing is normal. She still has an element of fatigue. She has been ambulatory to minimal degree yesterday and felt fairly well. She has not had any symptoms of chest discomfort. She is not reporting any sense of palpitation. Her cough seems to be improved. Social History Smoking Status: Former Smoker History of Alcohol Use: No Review of Systems Respiratory: + cough, + dyspnea on exertion, No see HPI, No sputum, No wheezing , No shortness of breath, No dyspnea at rest, No hemoptysis, No problem reported Cardiac: No see HPI, No chest pain, No orthopnea, No PND, No edema, No claudication, No palpitations, No problem reported No recent constitutional symptoms such as fevers or chills Objective Vital Signs Past 12 Hours Date Time Temp Pulse Resp B/P (MAP) Pulse Ox O2 Delivery O2 Flow Rate FiO2 05/10/17 07:34 36.9 88 16 106/64 (78) 96 Room Air 05/10/17 04:39 36.8 94 16 105/67 (80) 94 Room Air 05/10/17 04:00 Room Air 05/10/17 00:03 117 120/76 05/10/17 00:00 92 Room Air 05/10/17 00:00 37.7 115 120/76 (91) 92 Room Air 05/09/17 22:47 37.3 90 20 124/81 (95) 93 Room Air Last Recorded Weight-Kilograms: 59.600 Physical Exam She is alert and oriented x3. Mood affect appear normal. She answered all questions appropriately. HEENT: Sclerae are anicteric. Pupils are equal and reactive to light and accommodation. Extraocular movements were intact. Neuro: Cranial nerves intact Neck: Examination of the submandibular region did not reveal any significant lymphadenopathy. Carotids are palpable bilaterally and free of bruits on auscultation. There was no evidence of jugular venous distention. The thyroid was not enlarged. Lungs: Occasional crackles at bases bilaterally. She has normal respiratory effort without use of accessory muscles. There is normal pulmonary excursion. Cardiac: The rhythm was irregular. S1 and S2 were normal. There are no murmurs on examination. The PMI was not markedly displaced on palpation. Abdomen: The abdomen was soft and nontender. Extremities: Patient has bilateral radial pulses that are equal in intensity. There is no evidence cyanosis or clubbing. There was no evidence of significant peripheral edema bilaterally. Skin: There are no rashes noted on examination today. Data Laboratory Results: Last 24 Hours Test 05/09/17 10:45 05/09/17 20:15 05/09/17 20:34 05/10/17 05:16 Urine Color DK YELLOW Urine Appearance CLOUDY Urine pH 5.5 Urine Specific [place] 1.025 Urine Protein 1+ Urine Glucose (UA) NEG Urine Ketones 3+ Urine Occult Blood 3+ Urine Nitrite NEG Urine Bilirubin NEG Urine Urobilinogen NEG Urine Leukocyte Esterase SMALL Urine WBC (Auto) 10-30 /hpf Urine RBC (Auto) >30 /hpf Urine Hyaline Casts (Auto) 1-5 /lpf Urine Epithelial Cells (Auto) 10-20 /lpf Urine Bacteria (Auto) NEG Sodium Level 135 mmol/L 137 mmol/L Potassium Level 3.7 mmol/L 3.8 mmol/L Chloride Level 102 mmol/L 103 mmol/L Carbon Dioxide Level 27 mmol/L 28 mmol/L Anion Gap 6.0 mmol/L 6.0 mmol/L Blood Urea Nitrogen 14 mg/dl 13 mg/dl Creatinine 0.95 mg/dl 0.86 mg/dl Est Creatinine Clear Calc Drug Dose 41.7 ml/min 46.0 ml/min Estimated GFR () 67.4 76.1 Estimated GFR (Non- 58.2 65.6 BUN/Creatinine Ratio 15.2 15.4 Random Glucose 109 mg/dl 88 mg/dl Calcium Level 8.7 mg/dl 8.7 mg/dl Magnesium Level 2.0 mg/dl 2.2 mg/dl Thyroid Stimulating Hormone (TSH) 0.927 uIu/ml White Blood Count 12.01 K/uL Red Blood Count 3.92 M/uL Hemoglobin 12.4 g/dL Hematocrit 37.3 % Mean Corpuscular Volume 95.2 fL Mean Corpuscular Hemoglobin 31.6 pg Mean Corpuscular Hemoglobin Concent 33.2 g/dl Platelet Count 230 K/uL Mean Platelet Volume 9.6 fL Neutrophils (%) (Auto) 56.3 % Lymphocytes (%) (Auto) 27.3 % Monocytes (%) (Auto) 12.7 % Eosinophils (%) (Auto) 2.5 % Basophils (%) (Auto) 0.7 % Neutrophils # (Auto) 6.76 K/uL Lymphocytes # (Auto) 3.28 K/uL Monocytes # (Auto) 1.53 K/uL Eosinophils # (Auto) 0.30 K/uL Basophils # (Auto) 0.08 K/uL RDW Standard Deviation 48.6 fL RDW Coefficient of Variation 14.0 % Immature Granulocyte % (Auto) 0.5 % Immature Granulocyte # (Auto) 0.06 K/uL Total Bilirubin 1.3 mg/dl Aspartate Amino Transf (AST/SGOT) 19 U/L Alanine Aminotransferase (ALT/SGPT) 41 U/L Alkaline Phosphatase 102 U/L Total Protein 6.5 gm/dl Albumin 2.7 gm/dl Globulin 3.8 gm/dl Albumin/Globulin Ratio 0.7 Imaging: CT scan of the chest did not demonstrate any consolidative pneumonia. Very small pericardial and pleural effusions. Telemetry reviewed: Atrial fibrillation with variable heart rates Assessment and Plan 1. Atrial fibrillation: She seems to have improved rate control overall. Unclear whether this is adequate. She is resting in bed with heart rates in the 90s. I suspect that with ambulation she will have markedly elevated rates. However, she has only had a couple doses of her increased metoprolol. I think would be reasonable to ambulate her after her morning dose of metoprolol and monitor her heart rates and symptoms. I think if she continues to have elevated heart rates (over 120 beats per minute) with activity or over 100 beats per minute at rest we should add diltiazem as well. She had previously been on low-dose daily diltiazem at 120 milligrams. I think if she still has elevated heart rates this afternoon I would add 30 milligrams of immediate release diltiazem 3 times daily. We could then reassess her rate control tomorrow using the same method in if she has reasonable rates at that time she could be discharged on long-acting preparation of diltiazem. She should continue her Eliquis and we would consider a cardioversion as an outpatient in a few weeks. 2. Acute decompensated left ventricular systolic failure: Her BNP was elevated at the time of admission. She did have some mild dyspnea. She did not have severe pulmonary congestion on exam or by CT. However, would have low threshold for diuresis if she is markedly dyspneic with ambulation 3. Cardiomyopathy: She was noted to have reduced LV systolic function during her last admission. The hope was that with better control of her ventricular rates and time she would affect improvement and hopefully normalization of her LV function. Dr. Mendez will be covering over the next couple of days. If there are additional questions regarding her management, please contact him for assistance.
[2017-05-10] MEDS: LACTOBACILLUS ACIDOPHILUS 1 GM PACK PO SCH ×3 (08:46→16:30)
[2017-05-10] MEDS: METOPROLOL TARTRATE 50 MG TAB PO SCH ×2 (08:47→21:02)
[2017-05-10] MEDS: APIXABAN 2.5 MG TAB PO SCH ×2 (08:47→21:01)
[2017-05-10] MEDS: RANITIDINE HCL 150 MG TAB PO SCH (08:48)
[2017-05-10] MEDS ORDERED: AZITHROMYCIN 250 MG TAB PO SCH (09:00)
[2017-05-10] MEDS: CEFTRIAXONE SOD INJ 1 GM in DEXTROSE 5% ADD-VANTAGE 50ML 50 ML IV SCH (14:35)
[2017-05-10] MEDS ORDERED: DILTIAZEM HCL 30 MG TAB PO SCH (17:30)
[2017-05-10] MEDS: LORAZEPAM 0.5 MG TAB PO SCH (21:01)
[2017-05-10] MEDS ORDERED: NURSING VERBAL MED ORDER ONE (21:15)
--- NOTE | 2017-05-10 21:20 | Progress Note ---
Subjective Date of Service: May 10, 2017. Subjective Pt evaluation today including: conversation w/ patient, physical exam, chart review, lab review, review of inpatient medication list Pain: controlled PO Intake: adequate Voiding: no voiding problems, no incontinence Problem List Medical Problems: (1) Dyspnea Status: Acute Review of Systems Constitutional: No see HPI, No fever, No chills, No sweats, No weight loss, No weakness, No fatigue, No problem reported Eyes: No see HPI, No worsening of vision, No eye pain, No redness, No discharge , No diplopia, No problem reported ENT: No see HPI, No hearing loss, No unusual epistaxis, No nasal symptoms, No sore throat, No tinnitus, No dental problems, No trouble swallowing, No problem reported Respiratory: + cough, No see HPI, No sputum, No wheezing, No shortness of breath, No dyspnea on exertion, No dyspnea at rest, No hemoptysis, No problem reported Cardiac: No see HPI, No chest pain, No orthopnea, No PND, No edema, No claudication, No palpitations, No problem reported Breast: No see HPI, No breast lump, No change in shape, No nipple discharge, No breast pain, No problem reported Abdomen: No see HPI, No pain, No nausea, No vomiting, No diarrhea, No constipation, No GI bleeding, No problem reported Musculoskeletal: No see HPI, No joint pain, No muscle pain, No swelling, No calf pain, No problem reported Female : No see HPI, No dysuria, No urinary frequency, No hematuria, No incontinence, No abnormal vaginal bleeding, No vaginal discharge, No problem reported Neurologic: No see HPI, No memory loss, No paralysis, No weakness, No numbness/ tingling, No vertigo, No balance problems, No problem reported Psychiatric: No see HPI, No depression symptoms, No anhedonism, No anxiety, No insomnia, No substance abuse, No problem reported Heme: No see HPI, No abnormal bleeding/bruising, No clotting problems, No swollen lymph nodes, No night sweats, No problem reported Endo: No see HPI, No fatigue, No excessive thirst, No excessive urination, No problem reported Skin: No see HPI, No rash, No itch, No new/changing skin lesions, No color change, No bleeding, No problem reported Medications Current Inpatient Medications Medications (Trade) Dose Ordered Sig/[place] Route Start Time Stop Time Status Last Admin Dose Admin Folic Acid (Folvite Tab) 1 mg QAM PO 05/09/17 09:00 06/08/17 08:59 05/10/17 08:48 1 MG Lorazepam (Ativan Tab) 0.5 mg HS PO 05/08/17 21:00 06/07/17 20:59 05/10/17 21:01 0.5 MG Prednisone (PredniSONE TAB) 3 mg QAM PO 05/09/17 09:00 06/08/17 08:59 05/10/17 08:49 3 MG Apixaban (Eliquis Tab) 5 mg BID PO 05/08/17 21:00 06/07/17 20:59 05/10/17 21:01 5 MG Ranitidine HCl (zANTac TAB) 300 mg QAM PO 05/09/17 09:00 06/08/17 08:59 05/10/17 08:48 300 MG Acetaminophen (Tylenol Tab) 650 mg Q4H PRN PO 05/08/17 19:30 06/07/17 19:29 05/09/17 23:30 650 MG Al Hydrox/Mg Hydrox/Simethicone (Maalox Max Susp) 15 ml Q4H PRN PO 05/08/17 19:30 06/07/17 19:29 Magnesium Hydroxide (Milk Of Magnesia Susp) 30 ml Q12H PRN PO 05/08/17 19:30 06/07/17 19:29 Ondansetron HCl (Zofran Inj) 4 mg Q6H PRN IV 05/08/17 19:30 06/07/17 19:29 Polyethylene (Miralax Powder Packet) 17 gm DAILY PRN PO 05/08/17 19:30 06/07/17 19:29 Miscellaneous (Iv Fluids Completed) 1 ea PRN PRN N/A 05/08/17 20:30 05/08/18 20:29 Metoprolol Tartrate (Lopressor Tab) 50 mg BID PO 05/09/17 21:00 06/08/17 20:59 05/10/17 21:02 50 MG Lactobacillus Acidophilus (Lactinex Granules Pack) 1 gm TIDM PO 05/09/17 16:45 06/08/17 16:44 05/10/17 10:54 1 GM Ceftriaxone Sodium 1 gm/ Dextrose 50 ml @ 100 mls/hr Q24H IV 05/09/17 14:00 05/16/17 13:59 05/10/17 14:35 100 MLS/HR Diltiazem HCl (Cardizem Tab) 30 mg Q8 PO 05/10/17 17:30 06/09/17 17:29 05/10/17 19:02 30 MG Miscellaneous Information (Nursing Verbal Med Order) 1 ea ONE ONCE N/A 05/10/17 21:15 05/10/17 21:16 UNV Objective Vital Signs Date Time Temp Pulse Resp B/P (MAP) Pulse Ox O2 Delivery O2 Flow Rate FiO2 05/10/17 20:00 94 Room Air 05/10/17 19:09 36.6 119 18 117/75 (89) 96 Room Air 05/10/17 16:00 95 Room Air 05/10/17 15:00 36.9 92 16 117/75 (89) 96 Room Air 05/10/17 12:00 Room Air 05/10/17 11:13 36.5 99 16 114/84 (94) 94 Room Air 05/10/17 08:00 96 Room Air 05/10/17 07:34 36.9 88 16 106/64 (78) 96 Room Air 05/10/17 04:39 36.8 94 16 105/67 (80) 94 Room Air 05/10/17 04:00 Room Air 05/10/17 00:03 117 120/76 05/10/17 00:00 92 Room Air 05/10/17 00:00 37.7 115 120/76 (91) 92 Room Air 05/09/17 22:47 37.3 90 20 124/81 (95) 93 Room Air Physical Exam General Appearance: WD/WN, no apparent distress Eyes: normal inspection, EOMI ENT: normal ENT inspection, hearing grossly normal Neck: supple Respiratory/Chest: chest non-tender, no respiratory distress, no accessory muscle use, + rhonchi Cardiovascular: regular rate, rhythm, no edema, no gallop, no JVD, no murmur Abdomen: normal bowel sounds, non tender, soft, no organomegaly, no pulsatile mass Extremities: normal range of motion, non-tender, normal inspection, no pedal edema, no calf tenderness Neurologic/Psychiatric: rope cleaner II-XII nml as tested, no motor/sensory deficits, alert, normal mood/affect, oriented x 3 Skin: normal color, warm/dry, no rash Laboratory Results Last 24 Hours Test 05/10/17 05:16 White Blood Count 12.01 K/uL Red Blood Count 3.92 M/uL Hemoglobin 12.4 g/dL Hematocrit 37.3 % Mean Corpuscular Volume 95.2 fL Mean Corpuscular Hemoglobin 31.6 pg Mean Corpuscular Hemoglobin Concent 33.2 g/dl Platelet Count 230 K/uL Mean Platelet Volume 9.6 fL Neutrophils (%) (Auto) 56.3 % Lymphocytes (%) (Auto) 27.3 % Monocytes (%) (Auto) 12.7 % Eosinophils (%) (Auto) 2.5 % Basophils (%) (Auto) 0.7 % Neutrophils # (Auto) 6.76 K/uL Lymphocytes # (Auto) 3.28 K/uL Monocytes # (Auto) 1.53 K/uL Eosinophils # (Auto) 0.30 K/uL Basophils # (Auto) 0.08 K/uL RDW Standard Deviation 48.6 fL RDW Coefficient of Variation 14.0 % Immature Granulocyte % (Auto) 0.5 % Immature Granulocyte # (Auto) 0.06 K/uL Sodium Level 137 mmol/L Potassium Level 3.8 mmol/L Chloride Level 103 mmol/L Carbon Dioxide Level 28 mmol/L Anion Gap 6.0 mmol/L Blood Urea Nitrogen 13 mg/dl Creatinine 0.86 mg/dl Est Creatinine Clear Calc Drug Dose 46.0 ml/min Estimated GFR () 76.1 Estimated GFR (Non- 65.6 BUN/Creatinine Ratio 15.4 Random Glucose 88 mg/dl Calcium Level 8.7 mg/dl Magnesium Level 2.2 mg/dl Total Bilirubin 1.3 mg/dl Aspartate Amino Transf (AST/SGOT) 19 U/L Alanine Aminotransferase (ALT/SGPT) 41 U/L Alkaline Phosphatase 102 U/L Total Protein 6.5 gm/dl Albumin 2.7 gm/dl Globulin 3.8 gm/dl Albumin/Globulin Ratio 0.7 Assessment and Plan 76 year old female presented to the ED with cough, upper respiratory tract symptoms, A. fib with recurrent RVR Assessment/plan A. fib/RVR , improved after increasing to angelito, received digoxin in the ED. Cardiology consult appreciated, Dr. Dougherty increased her Beta angelito, continue monitoring, possibly might have to add Cardizem Continued and Eliquis. Cough and URTI, questionable Vascular congestion could be secondary to fluid overload but due to immune compromise status ordered a CT chest that did not show pneumonia, (showed thoracotomy on the right ) continue empirically treat bronchitis with ceftriaxone / azithromycin, will add lactobacillus (a little more aggressive due to immune compromised status), also had questionable UTI since there is no pneumonia , will add a small dose lasix RA , immune compromised cont Prednisone, no need for stress dose at this point Continue Enbrel as outpt HTN cont Metoprolol PO was increased by organ tuner electronic and possibly will add Cardizem if needed DVT prophylaxis, on Eliquis Full code Continued [facility] stay due to: multiple IV medications needed
[2017-05-10] MEDS ORDERED: FUROSEMIDE 20 MG TAB PO ONE (21:25)
[2017-05-11] VITALS (8 sets, daily range): BP systolic 99–124; BP diastolic 62–81; PULSE 87–103; TEMP 36.9–37.2; O2SAT 93–96
[2017-05-11 05:48] LABS: BASO % 0.6 %; BASO ABS # 0.06 K/uL (0-0.2); EOS % 4.4 %; EOS ABS # 0.43 K/uL (0-0.5); HEMATOCRIT 36.6 % (37-47); HEMOGLOBIN 12.1 g/dL (12.0-16.0); IG# 0.02 K/uL (0.00-0.02); LYMPH % 29.2 %; LYMPH ABS # 2.87 K/uL (1.2-3.4); MEAN CELL VOLUME 94.6 fL (80-100); MEAN CORPUSCULAR HEMOGLOBIN 31.3 pg (25-34); MEAN CORPUSCULAR HGB CONC 33.1 g/dl (32-36); MEAN PLATELET VOLUME 9.4 fL (7.4-10.4); MONO % 9.9 %; MONO ABS # 0.97 K/uL (0.11-0.59); NEUT % 55.7 %; NEUT ABS # 5.49 K/uL (1.4-6.5); PLATELET COUNT 263 K/uL (130-400); RED CELL DISTRIBUTION WIDTH CV 14.2 % (11.5-14.5); RED CELL DISTRIBUTION WIDTH SD 48.6 fL (36.4-46.3); WHITE BLOOD COUNT 9.84 K/uL (4.8-10.8)
[2017-05-11] MEDS ORDERED: DILTIAZEM HCL 30 MG TAB PO SCH (06:00)
[2017-05-11 06:22] LABS: ALBUMIN 2.6 gm/dl (3.4-5.0); CALCIUM 8.7 mg/dl (8.5-10.1); CREATININE 0.8 mg/dl (0.60-1.20); POTASSIUM 3.6 mmol/L (3.5-5.1)
[2017-05-11 06:24] LABS: TOTAL PROTEIN 6.3 gm/dl (6.4-8.2)
[2017-05-11] MEDS: LACTOBACILLUS ACIDOPHILUS 1 GM PACK PO SCH ×2 (07:30→10:42)
[2017-05-11] MEDS ORDERED: POTASSIUM CHLORIDE 10 MEQ TABCR PO STA (07:54)
[2017-05-11] MEDS: METOPROLOL TARTRATE 50 MG TAB PO SCH (08:10)
[2017-05-11] MEDS: RANITIDINE HCL 150 MG TAB PO SCH (08:10)
[2017-05-11] MEDS: APIXABAN 2.5 MG TAB PO SCH (08:10)
[2017-05-11] MEDS ORDERED: DILT-202 PO ×2 (12:17→12:22)
[2017-05-11] MEDS ORDERED: METO50TA16 PO (12:17)
--- NOTE | 2017-05-11 12:26 | Discharge Instructions ---
Discharge Instructions Date of Service May 11, 2017. Admission Reason for Admission: Atrial Fibrillation With Rvr, Pulmonary Discharge Discharge Diagnosis / Problem: Atrial Fibrillation with Rapid Rates Discharge Goals Goal(s): Decrease discomfort, Improve function, Increase independence Activity Recommendations Activity Limitations: resume your previous activity . Instructions / Follow-Up Instructions / Follow-Up Atrial Fibrillation: - Some changes have been made to your medications to help control your heart rates from going too fast - You Metoprolol was increased to 50 mg twice a day - You were placed back on Diltiazem CD 120 mg once a day. - You will continue on your blood thinner - Cardiology plans to follow up with you as an outpatient and consider cardioversion to shock your heart back into a normal rhythm but you will need to stay on blood thinners until then. You were started on a water pill (Lasix). This medication will help control when you get a back up of fluid. You will need to have your electrolytes check in one week. We will give you a prescription for this. You can go anywhere you would normally get your blood drawn and the results will go to your family doctor. Please discuss this medication with your family doctor and the butcher's assistant. Current Hospital Diet Patient's current hospital diet: AHA Diet (Heart Healthy) Discharge Diet Recommended Diet: AHA Diet (Heart Healthy) Pending Studies Studies pending at discharge: no Medical Emergencies . Who to Call and When: Medical Emergencies: If at any time you feel your situation is an emergency, please call 911 immediately. . Non-Emergent Contact Non-Emergency issues call your: Primary Care Provider Call Non-Emergent contact if: you have a fever, your pain is concerning you, you have any medication questions . . "Provider Documentation" section prepared by Suzanne Chu. . VTE Core Measure Inpt VTE Proph given/why not?: Other Anticoagulation Discharge Instructions Admission Admission Date: May 09, 2017 at 17:48 Admission Diagnosis: Atrial Fibrillation With Rvr, Pulmonary. Discharge Care Plan - Problem: Medical Problems: (1) Dyspnea Care Plan - Goal(s): Decrease discomfort, Improve function, Increase independence Care Plan - Instructions: Activity Recommendations: resume regular activity (gradually increase as tolerated) Recommended Home Diet: AHA Phase I (2gmNa/LoCho) Provider Instructions: Call 911 and go to the Emergency Room if: * You have tightness or pain in your chest that does not go away with rest or Nitroglycerin * You are very short of breath even with rest Call your doctor if any of the following symptoms or problems start or get worse: * Shortness of breath or difficulty breathing * Wake up at night short of breath * Chest pain * Cough * Swelling of your hands, fee, or legs * More fatigued or tired with your normal activity * Palpitations - sudden fast heart beats WEIGHT * Weigh yourself every morning after using the bathroom. * Use the same scale. * Wear the same amount of clothing. * Write your weight down on your chart. * Call your doctor if you gain more than 2-3 pounds in 1-2 days. MEDICATIONS * Use this discharge instruction sheet for instructions. * Take your medications at the time your doctor ordered. * Do not skip a dose of your medicines. * If you miss a dose of medicine, take as soon as possible, but DO NOT DOUBLE A DOSE. * Read your medicine information when you get home. * Know all of the side effects of your medicine. * Call your doctor's office if you have any side effects. * Be sure all of your doctors know what medicine and herbs you take (including cold, flu, and herbal medicine). * Pain Medicine: If you do not get relief from your pain, please call your doctor for help. Take the following with you to your follow-up doctor appointments: * Weight Chart * Medication List * List of questions Do not drink excessive alcohol, beer or wine. VTE Core Measure Inpt VTE Proph given/why not?: Other Anticoagulation [place] Recommendations: Call your doctor if: * Temperature above 101 degrees * Pain not relieved by pain medicine ordered * There is increased drainage or redness from any incision * You have any unanswered questions or concerns. Your Doctors Instructions noted above were prepared by provider Suzanne Chu.
[2017-05-11] MEDS ORDERED: MCRK20 PO (13:33)
[2017-05-11] MEDS ORDERED: FURO-85 PO (13:33)
[2017-05-11] MEDS ORDERED: DILTIAZEM HCL 120 MG CAPCR PO SCH (14:00)
--- NOTE | 2017-05-11 14:06 | Discharge Summary ---
Discharge Summary Date of Service May 11, 2017. Discharge Summary Admission Date: May 09, 2017 at 17:48 Discharge Date: May 11, 2017 Discharge Disposition: Home Principal Diagnosis: Atrial Fibrillation with RVR Problems/Secondary Diagnoses: 1. Rheumatoid Arthritis - on DMARD therapy 2. HTN 3. 2 mm Intra-Cerebral Aneurysm - STABLE 4. S/P R Thoracotomy for Pneumothorax 5. Acute on chronic systolic CHF Immunizations: Have You Had Influenza Vaccine: Yes Influenza Vaccine Date: Jan 29, 2009 History of Tetanus Vaccine?: Unknown History of Pneumococcal: Yes History of Hepatitis B Vaccine: Unknown Procedures: CT SCAN OF THE CHEST WITHOUT IV CONTRAST FINDINGS: Thyroid: Imaged portions of the thyroid gland are normal in size and attenuation. Thoracic aorta: There is mild atherosclerotic calcification of the thoracic aorta, which is normal in caliber and demonstrates standard 3-vessel arch anatomy. Foci of intravenous gas are located in the lower neck, likely related to IV placement. Heart: The heart is enlarged and there is a small pericardial effusion. The coronary arteries are densely calcified. The main pulmonary arteries are mildly enlarged suggesting pulmonary artery hypertension. Lungs and pleural spaces: There are small pleural effusions with associated atelectasis. No airspace consolidation is seen typical for pneumonia. Suture material is seen at the right apex and in the superior segment of the right lower lobe. The trachea and central airways are patent. Mediastinum: There are subcentimeter mediastinal lymph nodes. These are not pathologically enlarged by size criteria. Silke: Not well assessed without IV contrast. Axillae: There is no axillary lymphadenopathy. Upper abdomen: There is a tiny hiatal hernia. Small hepatic cysts measure up to 1.6 cm. Skeletal structures: The skeletal structures are osteopenic. Degenerative change and mild hyperkyphosis are noted in the thoracic spine. No lytic or blastic bony lesions are seen. Postoperative change is suggested in the right sided ribs. IMPRESSION: 1. Small pleural effusions with associated atelectasis. 2. There is no airspace consolidation typical for pneumonia. 3. Cardiomegaly and small pericardial effusion. 4. Postoperative change is noted in the right lung. Correlation with the patient's surgical history will be required. 5. Additional findings as above. Consultations: 1. Cardiology Medication Reconciliation New Medications: Furosemide (Lasix) 20 Mg Tab 20 MG PO DAILY for 30 Days, #30 TAB Start on 05/12. Potassium Chloride (Klor-Con M20) 20 Meq Tabcr 1 TAB PO DAILY for 30 Days, #30 TAB Diltiazem HCl (Diltiazem Cd) 120 Mg Capcr 120 MG PO DAILY for 30 Days, #30 TAB Changed Medications: Metoprolol Tartrate (Lopressor) (Lopressor) 50 Mg Tab 50 MG PO BID for 30 Days, #60 TABS (Changed from: QAM) Continued Medications: Apixaban (Eliquis) 5 Mg Tab 5 MG PO BID for 30 Days, #60 TAB Calcium (Calcium) 600 Mg Tab 600 MG PO QAM Etanercept (Enbrel) 50 Mg/Ml Inj 50 MG SC WK TUESDAYS Folic Acid (Folvite) 1 Mg Tab 1 MG PO QAM DOES NOT TAKE ON SUNDAYS WITH METHOTREXATE Leucovorin Calcium (Leucovorin Calcium) 5 Mg Tab 10 MG PO WK MONDAYS Lorazepam (Ativan) 0.5 Mg Tab 0.5 MG PO HS, TAB Methotrexate (Trexall) 7.5 Mg Tab 7.5 MG PO WK, TAB SUNDAYS Prednisone (Prednisone) 1 Mg Tab 3 MG PO QAM Ranitidine (Zantac) 300 Mg Tab 300 MG PO QAM Discontinued Medications: Metoprolol Tartrate (Lopressor) (Lopressor) 25 Mg Tab 25 MG PO QPM Discharge Exam Review of Systems: Constitutional: + problem reported (Denies lightheadedness), No fever, No chills ENT: No nasal symptoms, No sore throat Respiratory: + cough, No sputum, No dyspnea on exertion, No dyspnea at rest Cardiovascular: No chest pain, No palpitations Abdomen: No pain, No nausea, No vomiting, No diarrhea Musculoskeletal: No swelling, No calf pain Genitourinary - Female: No dysuria Hematologic / Lymphatic: No abnormal bleeding/bruising Physical Exam: General Appearance: WD/WN, no apparent distress, + thin Eyes: sclerae normal Neck: supple, no JVD, trachea midline Respiratory/Chest: no respiratory distress, no accessory muscle use, + crackles (bases b/l) Cardiovascular: + irregularly irregular Abdomen / GI: normal bowel sounds, non tender, soft Extremities: no calf tenderness, no pedal edema Neurologic/Psychiatric: alert, oriented x 3 Skin: normal color, warm/dry Hospital Course ADMISSION: 76 y/o F Hx RA, HTN. Pt had URI symptoms one week prior and presented to her primary MD for evaluation. She was diagnosed with AF and sent to the ER for evaluation. Her rate was controlled with Metoprolol, she was placed on Eliquis and DCd. She did not revert to a sinus rhythm. The pt was feeling weak today and her son checked her pulse, noting that it was high. On arrival to the ER she had a HR of 140-150. This did not immediately slow down with 3 doses of 5mg Metoprolol. She was administered IV Digoxin. An XR was consistent with vascular congestion. She c/o a persistent cough and nausea. She vomited a small amount in the ER. She denies diaphoresis or a fever. HOSPITAL COURSE: Ms. Welch was admitted for Atrial Fibrillation with RVR. She had minimal improvement with initial Metoprolol in the ED and Digoxin was given. She has however remained in Atrial Fibrillation. Her rate control was improved with the addition of Diltiazem, she was previously on this medication and will be resumed. Her Metoprolol was increased to 50 mg BID. She was resumed on Cardizem CD 120 mg daily. She does have a reduced EF on echo when she was initially diagnosed with A Fib. She does has some mild acute systolic CHF during admission. She does have crackles at the bases b/l but denies SOB or HERNÁNDEZ. She will be started on Lasix 20 mg daily with BMP check in 1 week. She will follow up with cardiology who is considering cardioversion after adequate duration of anticoagulation is obtained. Total Time Spent: Greater than 30 minutes This includes examination of the patient, discharge planning, medication reconciliation, and communication with other providers. Discharge Instructions Please refer to the electronic Patient Visit Report (Discharge Instructions) for additional information. Follow-Up PCP within 1-2 weeks Cardiology within 2 weeks Check BMP in [address] To Rd Madden M.D.; Timothy Sams MD Reviewed: Pt Seen/Exam by Me History Physician Ventilation Worker Supervision Note: I interviewed and examined the patient. Discussed with DELMAR Chu and agree with findings and plan as documented in the note. Any exceptions or clarifications are listed here: Pt feeling well. Rates better controlled today. Denies lightheadedness, no CP or SOB. DELMAR Chu discussed the case with Cardiology, Dr. Mendez, today prior to discharge. Vitals reviewed, tele with Afib in the 80s with occasional increase to 120s with ambulating around room NAD, AAOx3 irreg irreg, normal rate, no mgr Bibasilar crackles minimally, otherwise CTAB Abd +BS soft Ext no edema, 2+ DP pulses bilat SKin no rashes 76 yo female with a h/o intracerebral aneurysm, HTN, recently diagnosed Atrial fibrillation and systolic CHF, here with Afib with RVR and acute on chronic systolic CHF. Overall improved with rate control strategy. Appreciate Cardiology recommendations. COnvert po dilt to long acting for discharge today. Continue increased dose metoprolol and add on lasix low dose with KCl given persistent mild hypokalemia. Check BMP in 1 week to monitor renal function and K+. F/u with Cardio as scheduled in 2 weeks. Will need repeat ECHO in 3 months to reassess EF. Should likely have ACEI added on if BP can tolerate at outpt Cardiology or PCP follow up. BPs were borderline low and could not add on at time of discharge. Continues on Eliquis for CVA prevention F/u intracerebral aneurysm routinely as per PCP-MRA Head here last week was stable from previous. Documented By: Leida Turk
[2017-05-13 14:41] LABS: QUANTIF MITOGEN-NIL 6.84 IU/ML; QUANTIFERON NEGATIVE (NEGATIVE); QUANTIFERON NIL 0.03 IU/ML
== END 2017-05-11 14:32 | disposition home or self-care (01) | DRG 308 ==
LOC: C.EDB 15:03 → C.2T 19:31 → ENRESERV 19:46 → OBSVTOIN 05-09 17:48
PROVIDERS: ADMIT Internal Medicine; ATTEND Family Medicine
DX: I48.91 Unspecified atrial fibrillation (principal); I50.23 Acute on chronic systolic (congestive) heart failure; I11.0 Hypertensive heart disease with heart failure; J06.9 Acute upper respiratory infection, unspecified; M06.9 Rheumatoid arthritis, unspecified; K21.9 Gastro-esophageal reflux disease without esophagitis; I67.1 Cerebral aneurysm, nonruptured; Z87.891 Personal history of nicotine dependence; Z79.01 Long term (current) use of anticoagulants; Z79.52 Long term (current) use of systemic steroids; Z79.899 Other long term (current) drug therapy; Z82.49 Family history of ischemic heart disease and other diseases of the circulatory system; Z82.5 Family history of asthma and other chronic lower respiratory diseases

== ENCOUNTER → 2017-05-20 | Outpatient (CLI) | payer OTHER ==
[~2017-05-20] MED LIST changes: +DILT-202 PO; +FURO-85 PO; -LPR25 PO; +MCRK20 PO; +METO50TA16 PO
[2017-05-20 09:53] LABS: BLOOD UREA NITROGEN 18 mg/dl (7-18); CALCIUM 9.2 mg/dl (8.5-10.1); CARBON DIOXIDE 30 mmol/L (21-32); CREATININE 0.98 mg/dl (0.60-1.20); GLUCOSE 93 mg/dl (70-99); POTASSIUM 3.8 mmol/L (3.5-5.1); SODIUM 141 mmol/L (136-145)
== END | disposition home or self-care (01) ==
LOC: C.LAB1850 08:33
PROVIDERS: ATTEND Physician Assistant Medical
DX: I10 Essential (primary) hypertension (principal)

== ENCOUNTER → 2017-06-26 | Outpatient (CLI) | payer OTHER ==
[~2017-06-26] MED LIST changes: -APIX1TAB3 PO; -FURO-85 PO
[2017-06-26 10:06] LABS: BLOOD UREA NITROGEN 13 mg/dl (7-18); CALCIUM 8.7 mg/dl (8.5-10.1); CARBON DIOXIDE 27 mmol/L (21-32); CREATININE 1.03 mg/dl (0.60-1.20); GLUCOSE 136 mg/dl (70-99); POTASSIUM 3.7 mmol/L (3.5-5.1); SODIUM 141 mmol/L (136-145)
== END | disposition home or self-care (01) ==
LOC: C.LAB1850 08:43
PROVIDERS: ATTEND Internal Medicine Clinical Cardiac Electrophysiology
DX: I10 Essential (primary) hypertension (principal)

== ENCOUNTER → 2017-07-18 | Outpatient (CLI) | payer OTHER ==
[2017-07-18 12:35] LABS: ALBUMIN 3.5 gm/dl (3.4-5.0); ALT/SGPT 36 U/L (12-78); BLOOD UREA NITROGEN 16 mg/dl (7-18); CARBON DIOXIDE 28 mmol/L (21-32); CREATININE 0.99 mg/dl (0.60-1.20); GLUCOSE 82 mg/dl (70-99); POTASSIUM 3.6 mmol/L (3.5-5.1); SODIUM 139 mmol/L (136-145)
[2017-07-18 12:38] LABS: ALKALINE PHOSPHATASE 83 U/L (45-117); AST/SGOT 19 U/L (15-37); TOTAL PROTEIN 6.9 gm/dl (6.4-8.2)
== END | disposition home or self-care (01) ==
LOC: C.LAB1850 10:31
PROVIDERS: ATTEND Internal Medicine Clinical Cardiac Electrophysiology
DX: I10 Essential (primary) hypertension (principal); I48.91 Unspecified atrial fibrillation

== ENCOUNTER → 2017-11-11 | Outpatient (CLI) | payer OTHER ==
[2017-11-11 12:34] LABS: BASO % 0.5 %; BASO ABS # 0.05 K/uL (0-0.2); EOS % 2.4 %; EOS ABS # 0.23 K/uL (0-0.5); HEMATOCRIT 42.8 % (37-47); HEMOGLOBIN 14.1 g/dL (12.0-16.0); IG# 0.04 K/uL (0.00-0.02); LYMPH % 22.9 %; LYMPH ABS # 2.17 K/uL (1.2-3.4); MEAN CELL VOLUME 95.7 fL (80-100); MEAN CORPUSCULAR HEMOGLOBIN 31.5 pg (25-34); MEAN CORPUSCULAR HGB CONC 32.9 g/dl (32-36); MEAN PLATELET VOLUME 9.4 fL (7.4-10.4); MONO % 7.7 %; MONO ABS # 0.73 K/uL (0.11-0.59); NEUT % 66.1 %; NEUT ABS # 6.24 K/uL (1.4-6.5); PLATELET COUNT 284 K/uL (130-400); RED CELL DISTRIBUTION WIDTH CV 14.4 % (11.5-14.5); RED CELL DISTRIBUTION WIDTH SD 50.3 fL (36.4-46.3); WHITE BLOOD COUNT 9.46 K/uL (4.8-10.8)
[2017-11-11 13:23] LABS: ALBUMIN 3.5 gm/dl (3.4-5.0); ALKALINE PHOSPHATASE 79 U/L (45-117); ALT/SGPT 33 U/L (12-78); AST/SGOT 28 U/L (15-37); CREATININE 0.86 mg/dl (0.60-1.20)
== END | disposition home or self-care (01) ==
LOC: C.LAB1850 11:39
PROVIDERS: ATTEND Internal Medicine Rheumatology
DX: M06.9 Rheumatoid arthritis, unspecified (principal); M81.0 Age-related osteoporosis without current pathological fracture; K21.9 Gastro-esophageal reflux disease without esophagitis; Z79.899 Other long term (current) drug therapy; D89.9 Disorder involving the immune mechanism, unspecified; N25.81 Secondary hyperparathyroidism of renal origin; E55.9 Vitamin D deficiency, unspecified

== ENCOUNTER 2019-05-12 01:27 | Observation (INO) ==
[2019-05-12] MEDS ORDERED: SODIUM CHLORIDE 0.9% 1000ML 500 ML IV ONE (01:46)
[2019-05-12 02:04] LABS: Basophils # (auto) 0.11 K/uL (0-0.2); Basophils % (auto) 1.2 %; Eosinophils # (auto) 0.33 K/uL (0-0.5); Eosinophils % (auto) 3.6 %; Hematocrit (blood only) 43.1 % (37-47); Hemoglobin 14.1 g/dL (12.0-16.0); Immature Granulocytes # (auto) 0.03 K/uL (0.00-0.02); Immature Granulocytes % (auto) 0.3 %; Lymphocytes # (auto) 2.19 K/uL (1.2-3.4); Lymphocytes % (auto) 23.7 %; Mean Corpuscular Hemoglobin 31.6 pg (25-34); Mean Corpuscular Hgb Conc 32.7 g/dL (32-36); Mean Corpuscular Volume 96.6 fL (80-100); Mean Platelet Volume 9.4 fL (7.4-10.4); Monocytes # (auto) 1.05 K/uL (0.11-0.59); Monocytes % (auto) 11.4 %; Neutrophils # (auto) 5.52 K/uL (1.4-6.5); Neutrophils % (auto) 59.8 %; Platelet Count 239 K/uL (130-400); RDW Coefficient of Variation 15.3 % (11.5-14.5); Red Blood Count 4.46 M/uL (4.2-5.4); White Blood Count 9.23 K/uL (4.8-10.8)
[2019-05-12 02:31] LABS: Albumin Level 3.4 gm/dl (3.4-5.0); BUN Creatinine Ratio 15.3 (10-20); Bilirubin Direct 0.2 mg/dl (0-0.2); Calcium 9.3 mg/dl (8.5-10.1); Creatinine Clr Calc Pharmacy 35.8 ml/min; Est GFR (African American) 57.6; Est GFR (Non-African American) 49.7; Potassium 3.9 mmol/L (3.5-5.1)
[2019-05-12 02:34] LABS: Bilirubin,Total 0.5 mg/dl (0.2-1); Total Protein 7.3 gm/dl (6.4-8.2)
[2019-05-12] MEDS ORDERED: ONDANSETRON INJ 2 MG/ML 2 ML VIAL IV STA (02:36)
[2019-05-12] MEDS ORDERED: fentaNYL citrate 100 MCG/2 ML VIAL IV STA (02:36)
--- NOTE | 2019-05-12 03:00 | Emergency Department Note ---
Entered by Angelique Booker acting as a scribe for Darwin Pittman MD ED Provider Note Name: JOHN KWONG Age: 78 Arrives Via: Walk-In Informant: Patient CC: Flank pain HPI: 78F arrives for evaluation of right sided flank pain that started abruptly at 1999. The patient denies any fall or trauma to the area. The patient states that she is dry heaving but has not vomited. The patient denies abdominal pain, chest pain, groin armstrong, rash, shortness of breath, chest pain, urinary burning, frequency, urinary tract infection symptoms, or diarrhea. The patient denies experiencing this problem before. The patient states that she has never had a kidney stone before. The patient confirms that she has atrial fibrillation and is currently on Eliquis. ROS: See above HPI for pertinent positives & negatives. A total of 10 systems reviewed and were otherwise negative. Past Medical History:See Below Past Surgical History:See Below Family History:Congestive heart failure Social History:Non smoker Home Medications:See Below Allergies:Morphine Vitals:BP 144/95, P 109, R 16, O2 98% on RA , Temp 36.3 C Physical Exam: GENERAL: Patient is comfortable appearing and in moderate distress. EYES: No scleral icterus, unremarkable pupils. ENT: Mucous membranes moist, no nasal congestion. NECK: No masses appreciated, nomeningismus, trachea is midline. RESPIRATORY: No dyspnea. Clear to auscultation and equal bilaterally. No wheeze, no rhonchi. CARDIOVASCULAR: irregular, mild tachy.No murmurs, rubs, gallops appreciated. GASTROINTESTINAL: Abdomen soft, non-tender, no peritonitis.Bowel sounds positive.No masses appreciated. BACK: No midline tenderness, right CVA tenderness to palpation EXTREMITIES: Normal motion all extremities, no cyanosis, no edema. NEUROLOGIC: Alert and oriented, no acute motor or sensory deficits, no focal weakness, cranial nerves grossly intact. SKIN: No rash, no jaundice, no diaphoresis. ED Course: Prior Medical Record, Triage/Nursing Notes, Medications, Allergies reviewed by Me Vital Signs: reviewed and remarkable for tachy Labs:Reviewed and remarkable for blood in UA Interventions: saline lock, zofran 4mg iv, fentanyl 25mcg IV, NSS bolus Imaging:[facility] Radiologist interpretation reviewed by me: Right proximal 9x12mm ureteral calculus with moderate right hydronephrosis Consults: 0300: I reviewed the patient's case with Dr. Sow [facility] Hospitalist. He will evaluate the patient for further management. Reassessments/Times: 0142: Past medical records reviewed. The patient was evaluated in room B6. A complete history and physical exam was performed. 0236: I reassessed the patient who is having worsening pain and is dry heaving. 0300: I reviewed the patient's case with Dr. Sow [facility] Hospitalist. He will evaluate the patient for further management. Blood pressure:Elevated - Referred to PCP - Further management by hospitalist. Disposition:Hospitalization Differentials: Etiologies such as renal colic, appendicitis, diverticulitis, mesenteric ischemia, aortic pathology, infections, inflammatory bowel disease, PUD, biliary pathology, UTI, as well as others were entertained. Medical Decision Making: Pleasant 78 yr old female with history of afib on eliquis, cardiomyopathy/chf, copd, htn, gerd, amongst others arrives for acute right flank pain and nausea. CT with proximal right ureteral stone. Requiring IV fentanyl for pain control. Labs looking ok. Mild tachy consistent with pain. No evidence of sepsis nor UTI. Stone is likely too large to pass unaided and given no previous stones, age, and size hospitalist consulted who agrees with hospitalization for pain control and monitoring. Patient comfortable with this plan. Impression: Right proximal ureteral stone Right hydronephrosis The scribe's documentation has been prepared under my direction and personally reviewed by me in its entirety. I confirm that the note above accurately reflect s all work, treatment, procedures, and medical decision making performed by me. Darwin Pittman MD Impression & Plan Right ureteral stone, Hydronephrosis, right Past Med/Surg History Medical History Atrial fibrillation with rapid ventricular response Brain aneurysm (Acute) Bronchitis (Resolved ~03/23/19) Cataract COPD (chronic obstructive pulmonary disease) (Chronic) Osteoporosis, unspecified Permanent atrial fibrillation Pneumonia Pulmonary vascular congestion Surgical History H/O foot surgery H/O pneumonectomy Family History Mother Arthritis Other Congestive heart failure (CHF) Thoracic aortic aneurysm Social History Preferred Language: Khmer Communication Ability: Effective Visual Impairment: Limited Hearing Ability: Normal Valve Fitter Required: No Beliefs That Will Affect Care: None marital status: / Current Living Situation: Alone current occupational status: retired Feels Safe at Home: Yes Smoking Status: Former smoker Tobacco Type: cigarettes ; Age Started Using Tobacco: 16 ; Age Quit Using Tobacco: 45 ; packs per day: 0.5 ; Number of Years Since Quit: 33 ; Second Hand Exposure: No ; Hx Alcohol Use: No Hx Substance Use: No Childhood Exposure to Second-Hand Smoke: Yes Dental Care, Regularly: Yes Physical Activity Frequency: Daily Seatbelt Use: always Sunscreen Use: Yes Results & Data Vital Signs Vital Signs - 24 hr 05/12/19 01:32 05/12/19 02:11 05/12/19 03:38 Temperature 36.3 C L Temperature Source Oral Pulse Rate 109 H Pulse Rate [Right Finger] 109 H 105 H Respiratory Rate 18 16 17 Blood Pressure 167/111 H Blood Pressure [Left Arm] 144/95 H 110/89 Blood Pressure Mean 129 Blood Pressure Mean [Left Arm] 111 96 Pulse Oximetry 96 98 94 Sepsis Recent Fever Within 48 Hours No Sepsis New/Unexplained Change in Mental Status No Sepsis Action Taken by Nursing No Action Required Laboratory Data Result diagrams: 05/12/19 01:56 05/12/19 01:56 Lab Results 05/12/19 05/12/19 Range/Units 01:56 01:56 WBC 9.23 (4.8-10.8) K/uL RBC 4.46 (4.2-5.4) M/uL Hgb 14.1 (12.0-16.0) g/dL Hct 43.1 (37-47) % MCV 96.6 (80-100) fL MCH 31.6 (25-34) pg MCHC 32.7 (32-36) g/dL RDW Std Deviation 53.0 H (36.4-46.3) fL RDW Coeff of Libra 15.3 H (11.5-14.5) % Plt Count 239 (130-400) K/uL MPV 9.4 (7.4-10.4) fL Immature Gran % (Auto) 0.3 % Neut % (Auto) 59.8 % Lymph % (Auto) 23.7 % [place] % (Auto) 11.4 % Eos % (Auto) 3.6 % Baso % (Auto) 1.2 % Immature Gran # (Auto) 0.03 H (0.00-0.02) K/uL Neut # (Auto) 5.52 (1.4-6.5) K/uL Lymph # (Auto) 2.19 (1.2-3.4) K/uL [place] # (Auto) 1.05 H (0.11-0.59) K/uL Eos # (Auto) 0.33 (0-0.5) K/uL Baso # (Auto) 0.11 (0-0.2) K/uL Sodium 142 (136-145) mmol/L Potassium 3.9 (3.5-5.1) mmol/L Chloride 110 H (98-107) mmol/L Carbon Dioxide 26 (21-32) mmol/L Anion Gap 6.0 (3-11) BUN 16 (7-18) mg/dl Creatinine 1.07 (0.6-1.2) mg/dl Est Cr Clr Drug Dosing 35.8 ml/min Est GFR ( Amer) 57.6 Est GFR (Non-Af Amer) 49.7 BUN/Creatinine Ratio 15.3 (10-20) Glucose 139 H (70-99) mg/dl Calcium 9.3 (8.5-10.1) mg/dl Total Bilirubin 0.5 (0.2-1) mg/dl Direct Bilirubin 0.2 (0-0.2) mg/dl AST 41 H (15-37) U/L ALT 37 (12-78) U/L Alkaline Phosphatase 103 (45-117) U/L Total Protein 7.3 (6.4-8.2) gm/dl Albumin 3.4 (3.4-5.0) gm/dl Lipase 103 (73-393) U/L Administered Medications Fentanyl Citrate (Fentanyl Citrate) 25 mcg IV NOW STA Stop: 05/12/19 02:37 Last Admin: 05/12/19 02:42 Dose: 25 mcg Documented by: [id number] Sodium Chloride (Nss 1000ml) 500 mls @ 999 mls/hr IV .Q31M ONE Stop: 05/12/19 02:16 Last Infusion: 05/12/19 02:32 Dose: 0 mls/hr Documented by: [id number] Admin: 05/12/19 02:01 Dose: 999 mls/hr Documented by: [id number] Lactated Ringer's (Lr) 1,000 mls @ 125 mls/hr IV .Q8H AAKASH Stop: 06/11/19 05:04 Last Admin: 05/12/19 05:38 Dose: 125 mls/hr Documented by: [id number] Ondansetron HCl (Zofran) 4 mg IV NOW STA Stop: 05/12/19 02:37 Last Admin: 05/12/19 02:42 Dose: 4 mg Documented by: [id number] Discharge Plan Visit Data *Final* Discharge Date/Time: 05/12/19 04:41 Chief Complaint: Back Injury/Pain Stated Complaint: LOWER RIGHT BACK PAIN ED Provider: Darwin Pittman Discharge Problem: Right ureteral stone, Hydronephrosis, right Patient Disposition: Admitted As Inpatient Discharge Instructions Interventions: ED Discharge Assessment Last Done: 05/12/19 04:41 The scribe's documentation has been prepared under my direction and personally reviewed by me in its entirety. I confirm that the note above accurately reflects all work, treatment, procedures, and medical decision making performed by me.
[2019-05-12 03:17] LABS: Appearance Urine Turbid (Clear); Bilirubin Urine Negative (Negative); Blood Urine 3+ (Negative); Color Urine Red; Glucose Urine UA Negative (Negative); Ketones Urine Trace (Negative); Leukocyte Esterase Urine Negative (Negative); Nitrite Urine Positive (Negative); Protein Urine 3+ (Negative); Specific Gravity Urine >= 1.030 (1.000-1.030); Urobilinogen Urine Negative (Negative)
[2019-05-12 03:20] LABS: Bacteria Urine 2+ (Negative); Calcium Oxalate Crystals Urine Present (None Prsent); RBC Urine >30 /hpf (0-4); WBC Urine >30 /hpf (0-5)
--- NOTE | 2019-05-12 04:46 | History & Physical Report ---
Date of Service May 12, 2019 Assessment & Plan (1) Right ureteral stone: Admit to med/surg with tele Pain and nausea control Strain urine Urology consult. NPO except meds. LR @ 125. DVT prophylaxis = SCDs and covered by Eliquis. (2) Hydronephrosis, right: (3) Permanent atrial fibrillation: Rate controlled continue metoprolol and diltiazem. Hold Eliquis in anticipation of urologic procedure. (4) GERD (gastroesophageal reflux disease): Pepcid ordered in lieu of her Zantac. (5) Rheumatoid arthritis: Uses Methotrexate, leucovorin and etanercept injection Q week. Continue daily prednisone. (6) Hypertension: Continue lisinopril and Lasix. History of Present Illness 78 y/o female presented to the ED with sudden onset right sided flank pain of 6 hours duration. The pain was associated with nausea and dry heaves. No F/C, cough, SOB, chest pain, dysuria, gross hematuria, or diarrhea. She has never had kidney stone in the past. She takes Eliquis due to chronic A-fib. Primary Care Provider: Rd Madden MD Allergies Allergy/AdvReac Type Severity Reaction Status Date / Time morphine AdvReac Intermediate NAUSEA Verified 05/12/19 02:00 Home Medications Home Medications Medication Instructions Recorded Confirmed Type Eliquis 5 mg PO BID 04/19/18 05/12/19 History furosemide [Lasix] 20 mg PO DAILY 04/19/18 05/12/19 History metoprolol succinate [Toprol XL] 100 mg PO DAILY 04/19/18 05/12/19 History potassium chloride [K-Tab] 20 meq PO DAILY 04/19/18 05/12/19 History leucovorin calcium 5 mg tablet 10 mg PO WK #28 tab 10/24/18 05/12/19 Rx prednisone 1 mg tablet 3 mg PO QAM #270 tab 10/29/18 05/12/19 Rx methotrexate sodium 2.5 mg tablet 10 mg PO WK #45 tab 12/17/18 05/12/19 Rx calcium carbonate-vitamin D3 600 1 cap PO BID cap 01/13/19 05/12/19 History mg calcium-200 unit capsule diltiazem HCl 30 mg tablet 30 mg PO BID #42 tab 01/13/19 05/12/19 History folic acid 1 mg tablet 1 mg PO DAILY tab 01/13/19 05/12/19 History lorazepam 0.5 mg tablet 0.5 mg PO HS #30 tab 04/27/19 05/12/19 Rx etanercept 50 mg/mL (1 mL) 50 mg SUBCUT WK #4 ml 04/28/19 05/12/19 Rx subcutaneous pen injector lisinopril 5 mg PO DAILY 05/12/19 05/12/19 History ranitidine HCl 300 mg PO DAILY 05/12/19 05/12/19 History Past Med/Surg History Medical History Atrial fibrillation with rapid ventricular response Brain aneurysm (Acute) Bronchitis (Resolved ~03/23/19) Cataract COPD (chronic obstructive pulmonary disease) (Chronic) Osteoporosis, unspecified Permanent atrial fibrillation Pneumonia Pulmonary vascular congestion Surgical History H/O foot surgery H/O pneumonectomy Family History Mother Arthritis Other Congestive heart failure (CHF) Thoracic aortic aneurysm Social History Preferred Language: Lao Communication Ability: Effective Visual Impairment: Limited Hearing Ability: Normal 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 marital status: / Current Living Situation: Alone current occupational status: retired Feels Safe at Home: Yes Smoking Status: Never smoker Tobacco Type: cigarettes ; Age Started Using Tobacco: 16 ; Age Quit Using Tobacco: 45 ; packs per day: 0.5 ; Number of Years Since Quit: 33 ; Second Hand Exposure: No ; Hx Alcohol Use: No Hx Substance Use: Yes substance use type: sedatives and prescription drug Last Used Substance: Hours (ago) Childhood Exposure to Second-Hand Smoke: Yes Dental Care, Regularly: Yes Physical Activity Frequency: Daily Seatbelt Use: always Sunscreen Use: Yes Review of Systems Review of Systems: Constitutional- no fever; no weight loss Eyes- no acute visual changes ENT- no sinus drainage; no pharyngitis Pulmonary- no cough, no wheezing, no shortness of breath Cardiac- no chest pain, no palpitations, no orthopnea, no dependent edema GI-As in HPI - As in HPI Musculoskeletal- Deformities of hands due to RA. Derm- no rashes, no new skin lesions. Hematologic- no unusual bruising, no unusual bleeding Lymphatics- no adenopathy Endocrine- no polyuria or polydipsia; no heat or cold intolerance Neuro- no headaches, no focal neurologic symptoms Psych- no anxiety, no depression Physical Exam Physical Exam: General- adult female, NAD Head- atraumatic Eyes- PERRL, EOMI, anicteric ENT- oropharynx clear Neck- supple, no JVD, no adenopathy, no thyromegaly. Lungs-CTA b/l No R/R/W. Heart- irregular rhythm; no murmur, no gallop, no rub appreciated Abdomen- normal bowel sounds, soft, + Right costovertebral angle tenderness to percussion. Extremities- no pretibial edema, no calf tenderness; peripheral pulses intact Neuro- alert, oriented x 3; PERRL, EOMI; care team coordinator scheduler II-XII grossly intact, non-focal. Skin- warm & dry Results & Data Vital Signs (Past 12 Hours) Vital Signs Temp Pulse Pulse Resp BP BP Pulse Ox 05/12/19 03:38 105 H 17 110/89 94 05/12/19 02:11 109 H 16 144/95 H 98 05/12/19 01:32 36.3 C L 109 H 18 167/111 H 96 Laboratory Results Laboratory Results WBC 9.23 K/uL (4.8-10.8) 05/12/19 01:56 RBC 4.46 M/uL (4.2-5.4) 05/12/19 01:56 Hgb 14.1 g/dL (12.0-16.0) 05/12/19 01:56 Hct 43.1 % (37-47) 05/12/19 01:56 MCV 96.6 fL (80-100) 05/12/19 01:56 MCH 31.6 pg (25-34) 05/12/19 01:56 MCHC 32.7 g/dL (32-36) 05/12/19 01:56 RDW Std Deviation 53.0 fL (36.4-46.3) H 05/12/19 01:56 RDW Coeff of Libra 15.3 % (11.5-14.5) H 05/12/19 01:56 Plt Count 239 K/uL (130-400) 05/12/19 01:56 MPV 9.4 fL (7.4-10.4) 05/12/19 01:56 Immature Gran % (Auto) 0.3 % 05/12/19 01:56 Neut % (Auto) 59.8 % 05/12/19 01:56 Lymph % (Auto) 23.7 % 05/12/19 01:56 [place] % (Auto) 11.4 % 05/12/19 01:56 Eos % (Auto) 3.6 % 05/12/19 01:56 Baso % (Auto) 1.2 % 05/12/19 01:56 Immature Gran # (Auto) 0.03 K/uL (0.00-0.02) H 05/12/19 01:56 Neut # (Auto) 5.52 K/uL (1.4-6.5) 05/12/19 01:56 Lymph # (Auto) 2.19 K/uL (1.2-3.4) 05/12/19 01:56 [place] # (Auto) 1.05 K/uL (0.11-0.59) H 05/12/19 01:56 Eos # (Auto) 0.33 K/uL (0-0.5) 05/12/19 01:56 Baso # (Auto) 0.11 K/uL (0-0.2) 05/12/19 01:56 Sodium 142 mmol/L (136-145) 05/12/19 01:56 Potassium 3.9 mmol/L (3.5-5.1) 05/12/19 01:56 Chloride 110 mmol/L (98-107) H 05/12/19 01:56 Carbon Dioxide 26 mmol/L (21-32) 05/12/19 01:56 Anion Gap 6.0 (3-11) 05/12/19 01:56 BUN 16 mg/dl (7-18) 05/12/19 01:56 Creatinine 1.07 mg/dl (0.6-1.2) 05/12/19 01:56 Est Cr Clr Drug Dosing 35.8 ml/min 05/12/19 01:56 Est GFR ( Amer) 57.6 05/12/19 01:56 Est GFR (Non-Af Amer) 49.7 05/12/19 01:56 BUN/Creatinine Ratio 15.3 (10-20) 05/12/19 01:56 Glucose 139 mg/dl (70-99) H 05/12/19 01:56 Calcium 9.3 mg/dl (8.5-10.1) 05/12/19 01:56 Total Bilirubin 0.5 mg/dl (0.2-1) 05/12/19 01:56 Direct Bilirubin 0.2 mg/dl (0-0.2) 05/12/19 01:56 AST 41 U/L (15-37) H 05/12/19 01:56 ALT 37 U/L (12-78) 05/12/19 01:56 Alkaline Phosphatase 103 U/L (45-117) 05/12/19 01:56 Total Protein 7.3 gm/dl (6.4-8.2) 05/12/19 01:56 Albumin 3.4 gm/dl (3.4-5.0) 05/12/19 01:56 Lipase 103 U/L (73-393) 05/12/19 01:56 Urine Color Red 05/12/19 Unknown Urine Appearance Turbid (Clear) A 05/12/19 Unknown Urine pH 5.0 (4.5-7.5) 05/12/19 Unknown Ur Specific [place] >= 1.030 (1.000-1.030) 05/12/19 Unknown Urine Protein 3+ (Negative) H 05/12/19 Unknown Urine Glucose (UA) Negative (Negative) 05/12/19 Unknown Urine Ketones Trace (Negative) H 05/12/19 Unknown Urine Blood 3+ (Negative) H 05/12/19 Unknown Urine Nitrite Positive (Negative) A 05/12/19 Unknown Urine Bilirubin Negative (Negative) 05/12/19 Unknown Urine Urobilinogen Negative (Negative) 05/12/19 Unknown Ur Leukocyte Esterase Negative (Negative) 05/12/19 Unknown Urine RBC >30 /hpf (0-4) H 05/12/19 Unknown Urine WBC >30 /hpf (0-5) H 05/12/19 Unknown Ur Epithelial Cells 10-20 /lpf (0-5) H 05/12/19 Unknown Calcium Oxalate Crystal Present (None Prsent) A 05/12/19 Unknown Urine Bacteria 2+ (Negative) H 05/12/19 Unknown Code Status & VTE Plan VTE Prophylaxis Plan VTE Prophylaxis will be ordered: Yes PG Care Time/CCT Total # of Minutes Spent Total Time Spent: 55 Total Time Spent with Patient: Total time spent is greater than 50% in coordination of care (as documented) at patient's floor/unit and/or counseling patient: Coding Level of Care Code 53610 Initial Inpt Care Lvl 3 Diagnoses Right ureteral stone N20.1 Hydronephrosis, right N13.30 Permanent atrial fibrillation I48.21 GERD (gastroesophageal reflux disease) K21.9 Rheumatoid arthritis M05.79 Rheumatoid arthritis location: multiple sites Rheumatoid factor presence: with rheumatoid factor Hypertension I10 Hypertension type: essential hypertension (1) Rheumatoid arthritis Rheumatoid arthritis location: multiple sites Rheumatoid factor presence: with rheumatoid factor Qualified Code(s): M05.79 - Rheumatoid arthritis with rheumatoid factor of multiple sites without organ or systems involvement (2) Hypertension Hypertension type: essential hypertension Qualified Code(s): I10 - Essential (primary) hypertension
[2019-05-12] MEDS ORDERED: HYDROmorphone INJ 0.5 MG/0.5 ML SYR IV PRN (05:05)
[2019-05-12] MEDS ORDERED: ACETAMINOPHEN 325 MG TAB PO PRN (05:05)
[2019-05-12] MEDS ORDERED: ONDANSETRON INJ 2 MG/ML 2 ML VIAL IV PRN ×2 (05:05→11:47)
[2019-05-12] MEDS ORDERED: KETOROLAC TROMETHAMINE 15 MG/ML VIAL IV PRN (05:05)
[2019-05-12] MEDS: LACTATED RINGER'S 1,000 ML IV SCH ×2 (05:38→16:59)
[2019-05-12] MEDS ORDERED: CIPROFLOXACIN 400 MG/200 ML BAG IV SCH (06:00)
--- NOTE | 2019-05-12 07:18 | CT Scan Report ---
ABDOMEN AND PELVIS CT WITHOUT CONTRAST CT DOSE: 420.09 mGy.cm HISTORY: right flank pain to low back TECHNIQUE: Multiaxial CT images of the abdomen and pelvis were performed without contrast. A dose lo wering technique was utilized adhering to the principles of ALARA. COMPARISON STUDY: None. FINDINGS: Bibasilar interstitial thickening. The heart is mildly enlarged. There are 2 hypodense lesi ons within the left hepatic lobe with the largest measuring 1.9 cm. These are incompletely characteri zed on this noncontrast study but favor cysts. Calcified granulomas within the spleen. The adrenal gl ands and gallbladder are unremarkable. Normal pancreas. No retroperitoneal lymphadenopathy. There are punctate bilateral renal calculi. Moderate right hydroureteronephrosis secondary to an obstructing 1 2 x 9 mm stone within the mid ureter. The bladder is decompressed and not well visualized. The uterus and bilateral adnexa are within normal limits. Suboptimal evaluation for bowel pathology due to the lack of intravenous and oral contrast. However, there is no definite bowel wall thickening or obstruc tion. Normal appendix. Trace pelvic free fluid. No suspicious lytic or blastic osseous lesions. IMPRESSION: 1. A 12 x 9 mm obstructing stone within the mid right ureter resulting in moderate right hydrouretero nephrosis. 2. Bilateral nephrolithiasis. 3. No bowel wall thickening or obstruction. 4. Normal appendix. 5. Trace pelvic free fluid. 6. Interlobular septal thickening within the lung bases with mild cardiomegaly. This favors mild олег estive change. ACT 112: Negative or not required by law. Electronically signed by: Martinez Arreola M.D. 05/12/2019 7:16 AM
--- NOTE | 2019-05-12 08:15 | Urology Consultation ---
Date of Consultation May 12, 2019 Assessment & Plan (1) Hydronephrosis, right: (2) Right ureteral stone: 78 yo F admitted with right renal colic and moderate right hydronephrosis secondary to obstructing 12 x 9 mm right ureteral stone. - UC&S pending - Keep NPO - Strain all urine Findings reviewed with Dr. Zhang. Given her right renal colic and moderate hydronephrosis in the context of an obstructing 12 x 9 mm right ureteral stone, will proceed with OR for cystoscopy, right retrograde pyelogram and right stent placement. Risks and benefits to be reviewed with patient by Dr. Zhang. OR notified. Preoperative CXR and EKG ordered. Will cover with IV Ciprofloxacin preoperatively. Attending Note: Risks and benefits discussed. Plan for cystoscopy and right stent. + History of Present Illness Attending Physician: Harjinder Panda History of Present Illness 78 yo F with PMHx of atrial fibrillation on Eliquis, HTN, COPD, GERD, cardiomyopathy and RA admitted with right renal colic and moderate hydronephrosis secondary to obstructing 12 x 9 mm right ureteral stone. New consultation for right ureteral stone. Pt admitted through [facility] ED on 04/16 11/01. Presented with sudden onset of right flank pain, nausea, and dry heaves. Chart review: Afebrile Cr - 1.07 WBC - 9.23 UA - + nitrates, bacteria, > [address] abd/pelvis demonstrated 12 x 9 mm obstructing right mid ureteral stone, moderate right hydronephrosis; bilateral nephrolithiasis Patient lying in bed, sleeping. Easily aroused. Right flank pain is improved today. Utilizing PO Tylenol for pain control, states she prefers to avoid narcotic pain medication. Mild nausea, no vomiting. Voiding spontaneously. No dysuria, urgency, or frequency. Noted some hematuria yesterday, but not since then. NPO since midnight. Patient reports this is her first stone. Has seen urology in the remote past, but not for stone disease. Allergies Allergy/AdvReac Type Severity Reaction Status Date / Time morphine AdvReac Intermediate NAUSEA Verified 05/12/19 02:00 Home Medications Home Medications Medication Instructions Recorded Confirmed Type Eliquis 5 mg PO BID 04/19/18 05/12/19 History furosemide [Lasix] 20 mg PO DAILY 04/19/18 05/12/19 History metoprolol succinate [Toprol XL] 100 mg PO DAILY 04/19/18 05/12/19 History potassium chloride [K-Tab] 20 meq PO DAILY 04/19/18 05/12/19 History leucovorin calcium 5 mg tablet 10 mg PO WK #28 tab 10/24/18 05/12/19 Rx prednisone 1 mg tablet 3 mg PO QAM #270 tab 10/29/18 05/12/19 Rx methotrexate sodium 2.5 mg tablet 10 mg PO WK #45 tab 12/17/18 05/12/19 Rx calcium carbonate-vitamin D3 600 1 cap PO BID cap 01/13/19 05/12/19 History mg calcium-200 unit capsule diltiazem HCl 30 mg tablet 30 mg PO BID #42 tab 01/13/19 05/12/19 History folic acid 1 mg tablet 1 mg PO DAILY tab 01/13/19 05/12/19 History lorazepam 0.5 mg tablet 0.5 mg PO HS #30 tab 04/27/19 05/12/19 Rx etanercept 50 mg/mL (1 mL) 50 mg SUBCUT WK #4 ml 04/28/19 05/12/19 Rx subcutaneous pen injector lisinopril 5 mg PO DAILY 05/12/19 05/12/19 History ranitidine HCl 300 mg PO DAILY 05/12/19 05/12/19 History Patient History Medical History Atrial fibrillation with rapid ventricular response Brain aneurysm (Acute) Bronchitis (Resolved ~03/23/19) Cataract COPD (chronic obstructive pulmonary disease) (Chronic) Osteoporosis, unspecified Permanent atrial fibrillation Pneumonia Pulmonary vascular congestion Surgical History H/O foot surgery H/O pneumonectomy Family History Mother Arthritis Other Congestive heart failure (CHF) Thoracic aortic aneurysm Social History Preferred Language: Libyan Communication Ability: Effective Visual Impairment: Limited Hearing Ability: Normal Land Classifier Required: No Beliefs That Will Affect Care: None marital status: / Current Living Situation: Alone current occupational status: retired Feels Safe at Home: Yes Smoking Status: Former smoker Tobacco Type: cigarettes ; Age Started Using Tobacco: 16 ; Age Quit Using Tobacco: 45 ; packs per day: 0.5 ; Number of Years Since Quit: 33 ; Second Hand Exposure: No ; Hx Alcohol Use: No Hx Substance Use: No Childhood Exposure to Second-Hand Smoke: Yes Dental Care, Regularly: Yes Physical Activity Frequency: Daily Seatbelt Use: always Sunscreen Use: Yes Review of Systems Review of Systems: All systems reviewed & are unremarkable except as noted in HPI & below Physical Exam Constitutional: well developed and well nourished; no acute distress and not ill appearing Respiratory: normal respiratory effort; no respiratory distress Cardiovascular: Extremities: no pedal edema Gastrointestinal (Abdomen): Inspection/Auscultation: abdomen normal to inspection; abdomen not distended Percussion/Palpation: abdomen soft; abdomen nontender and no guarding Neurologic: moves all extremities and awake Psychiatric: A+Ox3, euthymic affect Genitourinary: no CVA tenderness voiding spontaneously, urine not visualized during exam Results & Data Vital Signs (Past 12 Hours) Vital Signs Temp Pulse Pulse Resp BP BP BP 05/12/19 05:22 36.6 C 101 H 20 141/84 H 05/12/19 05:05 36.6 C 101 H 18 141/84 H 05/12/19 04:38 107 H 17 144/97 H 05/12/19 03:38 105 H 17 110/89 05/12/19 02:11 109 H 16 144/95 H 05/12/19 01:32 36.3 C L 109 H 18 167/111 H Pulse Ox 05/12/19 05:22 90 05/12/19 05:05 90 05/12/19 04:38 93 05/12/19 03:38 94 05/12/19 02:11 98 05/12/19 01:32 96 PG Care Time/CCT Total # of Minutes Spent Total Time Spent with Patient: Total time spent is greater than 50% in coordination of care (as documented) at patient's floor/unit and/or counseling patient: Coding Level of Care Code 93116 Inpt Consult Level 3 Diagnoses Hydronephrosis, right N13.30 Right ureteral stone N20.1
[2019-05-12] MEDS ORDERED: FOLIC ACID 1 MG TAB PO SCH (09:00)
[2019-05-12] MEDS ORDERED: dilTIAZem HCL 30 MG TAB PO SCH (09:00)
[2019-05-12] MEDS ORDERED: lisinopriL 5 MG TAB PO SCH (09:00)
[2019-05-12] MEDS ORDERED: predniSONE 1 MG TAB PO SCH (09:00)
[2019-05-12] MEDS ORDERED: METOPROLOL SUCC 50MG EXT REL TAB PO SCH (09:00)
[2019-05-12] MEDS ORDERED: POTASSIUM CHLORIDE 20 MEQ TABCR PO SCH (09:00)
[2019-05-12] MEDS ORDERED: FAMOTIDINE 20 MG TAB PO SCH (09:00)
[2019-05-12] MEDS ORDERED: FUROSEMIDE 20 MG TAB PO SCH (09:00)
--- NOTE | 2019-05-12 09:32 | XRay Report ---
XR chest 2V PA/lateral HISTORY: Preop COMPARISON: Chest 04/19/2018. FINDINGS: No pneumothorax. There are trace bilateral pleural effusions. The heart remains enlarged. S light prominence of the interstitial markings suggestive of mild congestive change. This has slightly progressed. No new focal lung consolidations to suggest pneumonia. Postoperative changes again noted within the right lung apex. IMPRESSION: Cardiomegaly with trace bilateral pleural effusions and mild congestive change. ACT 112: Negative or not required by law. Electronically signed by: Martinez Arreola M.D. 05/12/2019 9:31 AM
[2019-05-12] MEDS ORDERED: METOPROLOL TARTRATE 1 MG/ML VIAL IV STA (11:45)
[2019-05-12] MEDS ORDERED: MEPERIDINE HCL 25 MG/ML CARP IV PRN (11:47)
[2019-05-12] MEDS ORDERED: ePHEDrine sulfate 50 MG/ML AMP IV PRN (11:47)
[2019-05-12] MEDS ORDERED: LABETALOL HCL IV 5 MG/ML 20ML IV PRN (11:47)
[2019-05-12] MEDS ORDERED: ATROPINE SULFATE 0.1 MG/ML 10ML SYR IV PRN (11:47)
[2019-05-12] MEDS ORDERED: fentaNYL citrate 100 MCG/2 ML VIAL IV PRN (11:47)
[2019-05-12] MEDS ORDERED: PHENYLEPHRINE 100MCG/ML 5ML SYR IV PRN (11:47)
--- NOTE | 2019-05-12 11:49 | Anesthesiology Consultation ---
Date of Service May 12, 2019 Assessment & Plan (1) Encounter for pre-operative examination: Chart Review Chart Review: Acceptable Risk for Surgery (surgery is urgent) and Patient NOT seen in Pre Admission Testing Consults Requested none medicine is following History Surgery Operation Date: 05/12/19 09:20 Proposed Procedures p Cystoscopy, Right Stent Insertion - Gordy Zhang, DO Height/Weight Height: 5 ft 3 in Weight: 56.3 kg Allergies Allergy/AdvReac Type Severity Reaction Status Date / Time morphine AdvReac Intermediate NAUSEA Verified 05/12/19 02:00 Medications Home Medications Medication Instructions Recorded Confirmed Last Taken Eliquis 5 mg PO BID 04/19/18 05/12/19 Unknown furosemide [Lasix] 20 mg PO DAILY 04/19/18 05/12/19 Unknown metoprolol succinate [Toprol XL] 100 mg PO DAILY 04/19/18 05/12/19 Unknown potassium chloride [K-Tab] 20 meq PO DAILY 04/19/18 05/12/19 Unknown leucovorin calcium 5 mg tablet 10 mg PO WK #28 tab 10/24/18 05/12/19 Unknown prednisone 1 mg tablet 3 mg PO QAM #270 tab 10/29/18 05/12/19 Unknown methotrexate sodium 2.5 mg tablet 10 mg PO WK #45 tab 12/17/18 05/12/19 Unknown calcium carbonate-vitamin D3 600 1 cap PO BID cap 01/13/19 05/12/19 Unknown mg calcium-200 unit capsule diltiazem HCl 30 mg tablet 30 mg PO BID #42 tab 01/13/19 05/12/19 Unknown folic acid 1 mg tablet 1 mg PO DAILY tab 01/13/19 05/12/19 Unknown lorazepam 0.5 mg tablet 0.5 mg PO HS #30 tab 04/27/19 05/12/19 Unknown etanercept 50 mg/mL (1 mL) 50 mg SUBCUT WK #4 ml 04/28/19 05/12/19 Unknown subcutaneous pen injector lisinopril 5 mg PO DAILY 05/12/19 05/12/19 Unknown ranitidine HCl 300 mg PO DAILY 05/12/19 05/12/19 Unknown Active Medications Generic Name Dose Route Start Last Admin Trade Name Freq PRN Reason Stop Dose Admin Acetaminophen 650 mg 05/12/19 05:05 05/12/19 07:48 Tylenol PO 06/11/19 05:04 650 mg Q4H PRN Administration mild pain or fever Diltiazem HCl 30 mg 05/12/19 09:00 05/12/19 08:54 Cardizem PO 06/11/19 08:59 30 mg BID AAKASH Administration Famotidine 20 mg 05/12/19 09:00 05/12/19 08:54 Pepcid PO 06/11/19 08:59 20 mg BID AAKASH Administration Folic Acid 1 mg 05/12/19 09:00 05/12/19 08:53 Folvite PO 06/11/19 08:59 1 mg DAILY AAKASH Administration Furosemide 20 mg 05/12/19 09:00 05/12/19 08:53 Lasix PO 06/11/19 08:59 20 mg DAILY AAKASH Administration Lactated Ringer's 1,000 mls @ 125 mls/hr 05/12/19 05:05 05/12/19 11:30 Lr IV 06/11/19 05:04 0 mls/hr .Q8H AAKASH Infusion Lisinopril 5 mg 05/12/19 09:00 05/12/19 08:53 Zestril PO 06/11/19 08:59 5 mg DAILY AAKASH Administration Metoprolol Succinate 100 mg 05/12/19 09:00 05/12/19 08:52 Toprol Xl PO 06/11/19 08:59 100 mg DAILY AAKASH Administration Potassium Chloride 20 meq 05/12/19 09:00 05/12/19 08:53 Klor-Con M20 PO 06/11/19 08:59 20 meq DAILY AAKASH Administration Prednisone 3 mg 05/12/19 09:00 05/12/19 08:52 Prednisone PO 06/11/19 08:59 3 mg QAM AAKASH Administration Past Medical History Medical History Atrial fibrillation with rapid ventricular response Brain aneurysm (Acute) Bronchitis (Resolved ~03/23/19) Cataract COPD (chronic obstructive pulmonary disease) (Chronic) Osteoporosis, unspecified Permanent atrial fibrillation Pneumonia Pulmonary vascular congestion Past Family History Family History Mother Arthritis Other Congestive heart failure (CHF) Thoracic aortic aneurysm Past Surgical History Surgical History H/O foot surgery H/O pneumonectomy Social History Smoking Status: Former smoker tobacco type: cigarettes Do You Dip or Chew Tobacco: No Hx Alcohol Use: No Hx Substance Use: No substance use type: sedatives and prescription drug Last Used Substance: Hours (ago) Physical Exam Vital Signs Last Vital Signs Temp 36.5 C 05/12/19 11:14 Pulse 62 05/12/19 11:14 Resp 18 05/12/19 11:14 BP 149/97 H 05/12/19 11:14 Pulse Ox 98 05/12/19 11:14 Testing Laboratory Results 05/12/19 01:56 05/12/19 01:56 Urine Color Red 05/12/19 Unknown Urine Appearance Turbid (Clear) A 05/12/19 Unknown Urine pH 5.0 (4.5-7.5) 05/12/19 Unknown Ur Specific [place] >= 1.030 (1.000-1.030) 05/12/19 Unknown Urine Protein 3+ (Negative) H 05/12/19 Unknown Urine Glucose (UA) Negative (Negative) 05/12/19 Unknown Urine Ketones Trace (Negative) H 05/12/19 Unknown Urine Nitrite Positive (Negative) A 05/12/19 Unknown Ur Leukocyte Esterase Negative (Negative) 05/12/19 Unknown Urine RBC >30 /hpf (0-4) H 05/12/19 Unknown Urine WBC >30 /hpf (0-5) H 05/12/19 Unknown Ur Epithelial Cells 10-20 /lpf (0-5) H 05/12/19 Unknown Electrocardiogram Date: 05/12/19 Findings: + NSST changes and + AFIB @ (with RVR 126) Chest X-Ray Date: 05/12/19 XR chest 2V PA/lateral HISTORY: Preop COMPARISON: Chest 04/19/2018. FINDINGS: No pneumothorax. There are trace bilateral pleural effusions. The heart remains enlarged. Slight prominence of the interstitial markings suggestive of mild congestive change. This has slightly progressed. No new focal lung consolidations to suggest pneumonia. Postoperative changes again noted within the right lung apex. IMPRESSION: Cardiomegaly with trace bilateral pleural effusions and mild congestive change. ACT 112: Negative or not required by law. Electronically signed by: Martinez Arreola M.D. 05/12/2019 9:31 AM Dictated: 05/12/19928 Transcribed: 05/12/19928 Echocardiogram Date: 04/29/18 EF: 45-50
[2019-05-12] MEDS ORDERED: PROPOFOL IV EMULSION 10 MG/ML 20 ML VIAL IV ONE (12:18)
[2019-05-12] MEDS ORDERED: ONDANSETRON INJ 2 MG/ML 2 ML VIAL ONE (12:18)
[2019-05-12] MEDS ORDERED: LIDOCAINE HCL 2% 2 ML VIAL/AMP(20MG/ML) INFIL ONE (12:18)
[2019-05-12] MEDS ORDERED: fentaNYL citrate 100 MCG/2 ML VIAL ONE (12:18)
[2019-05-12] MEDS ORDERED: METOPROLOL TARTRATE 1 MG/ML VIAL IV ONE (12:18)
[2019-05-12] MEDS ORDERED: MIDAZOLAM HCL 1 MG/ML 2ML VIAL ONE (12:18)
[2019-05-12] MEDS ORDERED: IOTHALAMATE MEGLUMINE II 17.2% 250 ML VIAL ONE (12:19)
--- NOTE | 2019-05-12 12:50 | Operative Report ---
PG Post Operative Report Pre & Post Diagnosis Operation Date: 05/12/19 09:20 Pre-Op Diagnosis: Right Ureteral Stone Post-Op Diagnosis: Right Ureteral Stone I identified the patient and participated in the time-out.: Yes Procedure Operation Date: 05/12/19 09:20 Actual Procedures p Cystoscopy, Right retrograde pyelogram and Ureteral Stent Insertion(Right) - Gordy Zhang DO Surgeon Gordy Zhang, II, DO Customer Liaison None Estimated Blood Loss 1 Findings Consistent with Post-Op Diagnosis Stent placed in good position. Specimens None Drains 6 Fr Multilength Anesthesia Type MAC Complications none Disposition Disposition: Recovery Room Indications Patient with obstruction. Risks and benefits discussed at length. Description of Procedure Patient was consented and brought back to the operating room. Patient was placed under anesthesia in the supine position and moved to the dorsal lithotomy position. Patient was prepped and draped in the regular sterile fashion. A time out was completed. A 30degree Cystoscope was placed into the bladder and the entire bladder was examined. The UO's were identified. The UO was cannulized with a catheter and a retrograde pyelogram was completed. A wire was then placed. With the wire in place, a 6 Fr Double J stent was placed. It was confirmed with fluoroscopy. With the stent in place, the bladder was emptied. The scope was removed. The patient was cleaned, aroused from anesthesia, and transferred to the pacu in stable condition having eleno erated the procedure well with no complications. I was present and participated in all aspects of the procedure. The patient will be monitored in the PACU until transferred. I attest to the content of the Intraoperative Record and any orders documented therein. Any exceptions are noted below.
--- NOTE | 2019-05-12 13:13 | Fluoroscopy Report ---
FL retrograde includes kub HISTORY: RETROGRADE AND STENT FLUOROSCOPY TIME: 17 seconds. FINDINGS: 6 fluoroscopic spot images were submitted for review. Retrograde opacification of the right renal collecting system followed by placement of a right ureteral stent. The ureteral stent appears in good position. There is mild right hydronephrosis. IMPRESSION: Fluoroscopy provided for right ureteral stent placement which appears in good position.. ACT 112: Negative or not required by law. Electronically signed by: Martinez Arreola M.D. 05/12/2019 1:12 PM
--- NOTE | 2019-05-12 13:20 | Anesthesiology Progress Note ---
Date of Service May 12, 2019 Anesthesia Post Procedure Vital Signs Vital Signs: Temp Pulse Pulse Pulse Resp BP BP 05/12/19 13:14 87 14 128/74 05/12/19 13:05 86 12 119/93 05/12/19 12:59 36 C L 78 18 120/74 05/12/19 12:08 36.5 C 114 H 20 05/12/19 11:14 36.5 C 62 18 05/12/19 07:46 36.4 C L 113 H 20 154/83 H 05/12/19 05:22 36.6 C 101 H 20 05/12/19 05:05 36.6 C 101 H 18 05/12/19 04:38 107 H 17 144/97 H 05/12/19 03:38 105 H 17 110/89 05/12/19 02:11 109 H 16 144/95 H 05/12/19 01:32 36.3 C L 109 H 18 167/111 H BP Pulse Ox 05/12/19 13:14 94 05/12/19 13:05 96 05/12/19 12:59 100 05/12/19 12:08 139/101 H 95 05/12/19 11:14 149/97 H 98 05/12/19 07:46 93 05/12/19 05:22 141/84 H 90 05/12/19 05:05 141/84 H 90 05/12/19 04:38 93 05/12/19 03:38 94 05/12/19 02:11 98 05/12/19 01:32 96 Pain Intensity Right Flank: Pain Intensity: 2 Transfer of Care Handoff Completed per policy Notes Mental Status: alert / awake / arousable Patient Amnestic to Procedure: Yes Nausea / Vomiting: adequately controlled Pain: adequately controlled Airway Patency, RR, SpO2: stable & adequate BP & HR: stable & adequate Hydration State: stable & adequate Anesthetic Complications: no major complications apparent and Pt Satisfied with anesthetic care Notes: The patient did well with the procedure. Preoperatively she had afib with RVR. Her HR was 110s to 120s. She was given 5 mg IV metoprolol. The patient underwent MAC sedation for the procedure. Her HR is now in the 70s to 80s. All other vital signs are stable.
[2019-05-12] MEDS ORDERED: LORazepam 0.5 MG TAB PO SCH (21:00)
--- NOTE | 2019-05-13 17:31 | Electrocardiogram Report ---
Test Reason : Blood Pressure : / mmHG Vent. Rate : 126 BPM Atrial Rate : 000 BPM P-R Int : 000 ms QRS Dur : 076 ms QT Int : 316 ms P-R-T Axes : 000 012 156 degrees QTc Int : 457 ms Atrial fibrillation with rapid ventricular response Nonspecific ST and T wave abnormality Abnormal ECG When compared with ECG of 19-APR-2018 20:50, No significant change was found Confirmed by Timothy Sams ([id number]) on 05/13/2019 5:30:49 PM Referred By: REFERRED SELF Confirmed By:Ian Sams
--- NOTE | 2019-05-18 00:31 | Discharge Summary ---
Date of Service May 12, 2019 Principal Diagnosis right ureteral stone Discharge Exam General- adult female, NAD Head- atraumatic Eyes- PERRL, EOMI, anicteric ENT- oropharynx clear Neck- supple, no JVD, no adenopathy, no thyromegaly. Lungs-CTA b/l No R/R/W. Heart- irregular rhythm; no murmur, no gallop, no rub appreciated Abdomen- normal bowel sounds, soft, + Right costovertebral angle tenderness to percussion. 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 p Cystoscopy, Right retrograde pyelogram and Ureteral Stent Insertion(Right) will f/u with Urology consult as outpatient DVT prophylaxis = SCDs and covered by Eliquis. (2) Hydronephrosis, right: (3) Permanent atrial fibrillation: Rate controlled continue metoprolol and diltiazem. Hold Eliquis in anticipation of urologic procedure. (4) GERD (gastroesophageal reflux disease): Pepcid ordered in lieu of her Zantac. (5) Rheumatoid arthritis: Uses Methotrexate, leucovorin and etanercept injection Q week. Continue daily prednisone. (6) Hypertension: Continue lisinopril and Lasix. Total Time Total Time Spent Total Time Spent (In Minutes): 32 Total Time Includes: Examination of the Patient, Discharge Planning and Medication Reconciliation Discharge Plan Discharge Items Patient Disposition: Home - Self-Care Reason For Visit: URETERAL STONE Discharge Diagnosis: ureteral stone Activity: Resume your previous activity Non-emergency contact: Primary Care Provider Call non-emergency contact if: you have any medication questions Follow-up/Referrals: Rd Madden MD [Primary Care Provider] - Diet: Regular Addtl Attending Provider Instructions: You have been hospitalized for an acute medical problem. During your stay at [facility], we have made an effort to correct the problem that brought you to the hospital while keeping you as comfortable as possible. Medications were used to bring your condition under control and your discharge instructions will include directions for any medications you should take after leaving the hospital. Please make sure you see your Primary Care Provider as part of your follow up plan. Recommend followup with PCP in 1-2 weeks. Will have urology call you for a followup. Please strain your urine. Pending Studies at Discharge: No Stand-Alone Forms: [facility], Smoking Cessation Medications and DC Order Prescriptions: New acetaminophen [Mapap (acetaminophen)] 325 mg Tablet 650 mg PO Q4H PRN (Reason: pain) Qty: 30 RF: 0 Continued leucovorin calcium 5 mg tablet 10 mg PO WK Qty: 28 RF: 3 prednisone 1 mg tablet 3 mg PO QAM Qty: 270 RF: 3 methotrexate sodium 2.5 mg tablet 10 mg PO WK Qty: 45 RF: 1 lorazepam [Ativan] 0.5 mg tablet 0.5 mg PO HS Qty: 30 RF: 0 Enbrel SureClick 50 mg/mL (1 mL) pen injector 50 mg subcut WK Qty: 4 RF: 0 diltiazem HCl 30 mg tablet 30 mg PO BID Qty: 42 RF: 0 folic acid 1 mg tablet 1 mg PO DAILY RF: 0 metoprolol succinate [Toprol XL] 100 mg tablet extended release 24 hr 100 mg PO DAILY RF: 0 furosemide [Lasix] 20 mg tablet 20 mg PO DAILY RF: 0 Eliquis 5 mg tablet 5 mg PO BID RF: 0 potassium chloride [K-Tab] 20 mEq tablet extended release 20 meq PO DAILY RF: 0 Calcium 600 + D(3) 600 mg calcium- 200 unit capsule 1 cap PO BID RF: 0 ranitidine HCl 300 mg Tablet 300 mg PO DAILY RF: 0 lisinopril 2.5 mg tablet 5 mg PO DAILY RF: 0 Discharge Orders: Discharge Order (Routine); Ordered 05/12/19 Ordered By: Harjinder Panda Admission Data Admit Date/Time: 05/12/19 04:20 Attending Provider: Harjinder Panda Admit Provider: Daniel Sow Primary Care Provider: Rd Madden Other Providers: oGrdy Zhang Other Interventions: Discharge Summary Assessment (RN) Last Done: 05/12/19 18:31 DC Date/Time DO NOT enter until pt leaves facility: 05/12/19 19:00 Coding Level of Care Code D/C Day Management >30 mins Diagnoses Right ureteral stone N20.1 Hydronephrosis, right N13.30 Permanent atrial fibrillation I48.21 GERD (gastroesophageal reflux disease) K21.9 Rheumatoid arthritis M05.79 Rheumatoid arthritis location: multiple sites Rheumatoid factor presence: with rheumatoid factor Hypertension I10 Hypertension type: essential hypertension
== END 2019-05-12 19:00 | disposition home or self-care (01) | DRG 660 ==
LOC: ED 01:27 → 2W 04:20 → SUATTDRO 04:20 → INTOOBSV 04:20 → 2W 04:41

== ENCOUNTER 2021-05-23 10:20 | Inpatient (IN) ==
[2021-05-23] MEDS ORDERED: SODIUM CHLORIDE 0.9% 1000ML 1,000 ML IV ONE (12:20)
[2021-05-23] MEDS ORDERED: ACETAMINOPHEN 1,000 MG/100 ML VIAL IV STA (12:21)
[2021-05-23 12:29] LABS: Basophils # (auto) 0.02 K/uL (0-0.2); Basophils % (auto) 0.1 %; Eosinophils # (auto) 0.02 K/uL (0-0.5); Eosinophils % (auto) 0.1 %; Hematocrit (blood only) 43.6 % (37-47); Hemoglobin 14.6 g/dL (12.0-16.0); Immature Granulocytes # (auto) 0.05 K/uL (0.00-0.02); Immature Granulocytes % (auto) 0.4 %; Lymphocytes # (auto) 1.13 K/uL (1.2-3.4); Mean Corpuscular Hgb Conc 33.5 g/dL (32-36); Mean Corpuscular Volume 98.4 fL (80-100); Monocytes # (auto) 1.37 K/uL (0.11-0.59); Monocytes % (auto) 9.7 %; Neutrophils # (auto) 11.53 K/uL (1.4-6.5); Neutrophils % (auto) 81.7 %; Platelet Count 251 K/uL (130-400); RDW Coefficient of Variation 14.5 % (11.5-14.5); RDW Standard Deviation 51.9 fL (36.4-46.3); Red Blood Count 4.43 M/uL (4.2-5.4); White Blood Count 14.12 K/uL (4.8-10.8)
[2021-05-23 12:44] LABS: Troponin I < 0.03 ng/ml (0-0.04)
[2021-05-23 12:49] LABS: Alanine Aminotransferase 18 U/L (7-52); Albumin Level 3.5 gm/dl (3.4-5.0); Alkaline Phosphatase 102 U/L (34-104); Anion Gap 13 (3-11); Aspartate Aminotransferase 29 U/L (13-39); BUN Creatinine Ratio 34.5 (10-20); Bilirubin,Total 0.8 mg/dl (0.2-1.0); Blood Urea Nitrogen 29 mg/dl (6-23); Calcium 9.1 mg/dl (8.5-10.1); Carbon Dioxide 20 mmol/L (21-32); Chloride 101 mmol/L (98-107); Est GFR (African American) 76.1 ml/min; Est GFR (Non-African American) 65.6 ml/min; Globulin 3.4 gm/dl (2.5-4.0); Glucose 136 mg/dl (70-99(Fasting)); Lipase 10 U/L (11-82); Magnesium 1.9 mg/dl (1.7-2.4); Phosphorus 3.2 mg/dl (2.5-4.9); Potassium 3.8 mmol/L (3.5-5.1); Sodium 134 mmol/L (136-145); Total Protein 6.9 gm/dl (6.0-8.3)
--- NOTE | 2021-05-23 13:02 | XRay Report ---
XR chest 1V portable CLINICAL HISTORY: Atypical chest pain TECHNIQUE: Single frontal radiograph of the chest was obtained. Comparison: Comparison is made to chest 2 views 05/04/2019 FINDINGS: No lines and tubes are seen. Cardiomegaly is noted. There is a new airspace opacity in the right uppe r lobe. Postsurgical changes are again noted in the right lung apex. Blunting of the right costophren ic angle may represent trace right pleural effusion. IMPRESSION: Interval development of right upper lobe airspace opacity which may represent atelectasis, pneumonia, and/or aspiration. Cannot exclude trace right pleural effusion. ACT 112: Negative or not required by law. Electronically signed by: Pk Cross M.D. 05/23/2021 1:01 PM
[2021-05-23] MEDS ORDERED: AZITHROMYCIN 500 MG in DEXTROSE 5% 250 ML IV STA (14:01)
[2021-05-23] MEDS ORDERED: cefTRIAXone SODIUM 2,000 MG/70 ML BAG IV STA (14:01)
[2021-05-23 16:15] LABS: Appearance Urine Cloudy (Clear); Bacteria Urine Automated 3+ (Negative); Bilirubin Urine Negative (Negative); Blood Urine 3+ (Negative); Color Urine Dark Yellow; Glucose Urine UA Negative (Negative); Ketones Urine 3+ (Negative); Leukocyte Esterase Urine Negative (Negative); Nitrite Urine Negative (Negative); Protein Urine 2+ (Negative); RBC Urine Automated >30 /hpf (0-4); Specific Gravity Urine 1.038 (1.000-1.030); Urobilinogen Urine Negative (Negative); WBC Urine Automated >30 /hpf (0-5); pH Urine 5.5 (4.5-7.5)
[2021-05-23] MEDS ORDERED: OPTIRAY 320 100ml IV ONE (16:26)
--- NOTE | 2021-05-23 16:46 | CT Scan Report ---
CT OF THE ABDOMEN AND PELVIS WITH CONTRAST CLINICAL HISTORY: ?sepsis, ?UTI COMPARISON STUDY: CT of the abdomen and pelvis May 12, 2019. CTA of the abdomen and pelvis with runoff June 19, 2019. TECHNIQUE: Following IV administration of 95 mL of Optiray, axial images of the abdomen and pelvis we re obtained from the lung bases to the proximal femurs. Images were reviewed in the axial, sagittal, and coronal planes. IV contrast was administered without complication. Automated exposure control wa s utilized for the study. A dose lowering technique was utilized adhering to the principles of ALARA . CT DOSE: 255.13 mGy.cm FINDINGS: Cardiomegaly is incidentally noted. There is a trace left pleural effusion. No pneumatosis, free air or portal venous gas is present. Several hepatic cysts are noted. There is no biliary or pa ncreatic ductal dilatation. Gallbladder is moderately distended. There is trace fluid and stranding a djacent to the second portion of the duodenum. Mild wall thickening of the second portion of the duod enum is also noted. No fluid collection is present. There is no extraluminal gas. No peripancreatic i nfiltration is noted. There are no ureteral calculi. There is no hydronephrosis. Scarring within the upper pole of the right kidney is noted. There are suspected small bilateral renal calculi that measu re up to 4 mm. There is no evidence for a bowel obstruction. Caliber and wall thickness of small and large bowel are normal. No acute fracture or suspicious lesion is identified within visualized skelet al structures. There is no lymphadenopathy. IMPRESSION: 1. Trace fluid and stranding adjacent to the second portion the duodenum with duodenal wall thickenin g. These findings may reflect duodenitis/peptic ulcer disease. No extraluminal gas. 2. Gallbladder distention. These findings do not strongly suggest acute cholecystitis however right u pper quadrant ultrasound could be obtained for further evaluation. 3. No bowel obstruction. 4. Bilateral nephrolithiasis. No ureteral calculi or hydronephrosis. 5. Cardiomegaly. Trace left pleural effusion. ACT 112: Negative or not required by law. Electronically signed by: Jose Russell M.D. 05/23/2021 4:45 PM
[2021-05-23] MEDS ORDERED: fentaNYL citrate 100 MCG/2 ML VIAL IV ONE (19:19)
[2021-05-23] MEDS: SODIUM CHLORIDE 0.9% 500 ML IV SCH (19:39)
[2021-05-23] MEDS ORDERED: LACTATED RINGER'S 1,000 ML IV SCH (20:15)
--- NOTE | 2021-05-23 20:51 | Emergency Department Note ---
Impression & Plan Pneumonia, Urinary tract infection, Atrial fibrillation with rapid ventricular response ED Provider Note NAME: JOHN KWONG AGE: 80 SEX: F ARRIVES VIA: Ambulance INFORMANT: Patient ED PROVIDER(S): Elliot Simmons MD CHIEF COMPLAINT: Body aches, feverishness. PLAN: Disposition: Admit MEDICAL DECISION MAKING: The patient is a pleasant 80-year-old woman with past medical history of hypertension, hyperlipidemia, cardiomyopathy, COPD, atrial fibrillation on Eliquis,, rheumatoid arthritis on methotrexate and etanercept who presents to the emergency department with several days of feverishness, body aches and malaise. Patient denies nausea, vomiting, diarrhea. She denies cough or congestion. She denies urinary symptoms. She reports she simply feels weak and achy. On arrival patient is ill appearing but no acute distress, afebrile with heart rate in the 110s and vital signs otherwise stable. She appears clinically dry. Abdomen is benign. Lungs are relatively clear. EKG without overt acute ischemia. Chest x-ray of right upper lobe opacity suspicious for pneumonia. WBC 14K. H/H and platelets within normal limits. Chemistry without significant metabolic acidosis. BUN/creatinine> 30 system with the patient's clinically dry appearance. Lactic acid 1.6, within normal limits. Electrolytes without significant normality. LFTs unremarkable. Troponin negative/. Lipase is not elevated. Procalcitonin is slightly elevated at 0.9. UA is suspicious for infection with WBCs and 3+ bacteria. COVID-19 RNA, NAAT test was negative. Influenza PCR is negative. CT of the abdomen pelvis was performed and demonstrates question of stranding adjacent to the duodenum with duodenal thickening however patient's abdomen is nontender in this region. Similarly, gallbladder distention was noted however there is no upper abdominal pain. Trace left pleural effusion seen. The patient was treated for CAP with ceftriaxone and azithromycin. Ceftriaxone will also cover suspected urinary infection. Given patient is immunocompromised with suspicion for pneumonia and UTI patient was in agreement with plan for admission. Case was discussed with Dr. Godoy, [facility] hospitalist, who will evaluate the patient for admission. Triage Nursing notes reviewed and agree them. Prior medical records reviewed Vital Signs: reviewed and remarkable for tachycardia. Differential diagnosis: Viral syndrome, otitis, pharyngitis, pneumonia, influenza, meningitis, urinary tract infection, sepsis, bacteremia, as well as other pathologies. ER treatment provided: See below. Diagnostics interpreted by me: ECG: Atrial fibrillation, RVR, 138 bpm, no ectopy, no overt ST elevation or depression, QTC 509, QRS 78. Cardiac Monitoring: An order for continuous cardiac monitoring was placed and demonstrated atrial fibrillation, 138 bpm, no ectopy. Laboratory studies: See below Imaging studies: See below Consultation(s): Case was discussed with Dr. Godoy, [facility] hospitalist, who will evaluate the patient for admission. HPI: The patient is a pleasant 80-year-old woman with past medical history of hypertension, hyperlipidemia, cardiomyopathy, COPD, atrial fibrillation on Eliquis,, rheumatoid arthritis on methotrexate and etanercept who presents to the emergency department with several days of feverishness, body aches and malaise. Patient denies nausea, vomiting, diarrhea. She denies cough or олег estion. She denies urinary symptoms. She reports she simply feels weak and achy. ROS: See above HPI for pertinent positives & negatives. A total of 10 systems reviewed and were otherwise negative. PAST MEDICAL HISTORY:See Below PAST SURGICAL HISTORY:See Below FAMILY HISTORY:See Below SOCIAL HISTORY:See Below HOME MEDICATIONS:See Below ALLERGIES:See Below VITALS:See Below PHYSICAL EXAMINATION: GENERAL: Awake, alert, ill/uncomfortable-appearing, in no distress HENT: Normocephalic, atraumatic. Oropharynx with dry mucous membranes and otherwise unremarkable. EYES: Normal conjunctiva. Sclera non-icteric. NECK: Supple. No nuchal rigidity. FROM. No JVD. RESPIRATORY: Clear to auscultation. CARDIAC: Tachycardic rate, irregular rhythm. Extremities warm and well perfused. Pulses equal. ABDOMEN: Soft, non-distended. No tenderness to palpation. No rebound or gu arding. No masses. RECTAL: Deferred. MUSCULOSKELETAL: Chest examination reveals no tenderness. The back is symmetrical on inspection without obvious abnormality. There is no CVA tenderness to palpation. No joint edema. LOWER EXTREMITIES: Calves are equal size bilaterally and non-tender. No edema. No discoloration. NEURO: No focal sensory or motor deficits noted. SKIN: No rash or jaundice noted. Elliot Simmons MD Past Med/Surg History Medical History Atrial fibrillation Atrial fibrillation with RVR Brain aneurysm under surveillance by PCP (stable x years) Bronchitis (~03/23/19) GERD (gastroesophageal reflux disease) Hyperlipidemia Hypertension Kidney stones Osteoporosis, unspecified Pneumonia Rheumatoid arthritis Systolic CHF Surgical History H/O foot surgery History of lithotripsy History of thoracotomy FOR COLLAPSED LUNG - HAD WEDGE RESECTION LOWER RIGHT Hx of cataract extraction Family History Mother Arthritis Father Congestive heart failure (CHF) Aunt Breast cancer Sister Stroke Other Thoracic aortic aneurysm Denies family history of Ovarian cancer Prostate cancer Diabetes Myocardial infarction Lung cancer Colorectal cancer Social History Smoking Status: Never smoker Age Started Using Tobacco: 16; Age Quit Using Tobacco: 45; packs per day: 0.5; Years Smoked: 29; Number of Years Since Quit: 33; Second Hand Exposure: No; Hx Alcohol Use: No Hx Substance Use: No Preferred Language: Kuwaiti Communication Ability: Effective Visual Impairment: Limited Hearing Ability: Normal Surgical Assistant Required: No Beliefs That Will Affect Care: None marital status: / Current Living Situation: Alone current occupational status: retired How many Children do You have: 5 Feels Safe at Home: Yes Childhood Exposure to Second-Hand Smoke: Yes (dad did off and on ) caffeine: Yes (coffee) Dental Care, Regularly: No Physical Activity Frequency: Daily Physical Activity Frequency Comment: walks daily Seatbelt Use: always Sunscreen Use: Yes Assistive Devices: Glasses Allergies Allergies Allergy/AdvReac Type Severity Reaction Status Date / Time morphine AdvReac Intermediate NAUSEA Verified 05/23/21 12:27 Home Meds Home Medications Medication Instructions Recorded Confirmed potassium chloride 20 mEq 20 meq PO QAM 04/19/18 05/23/21 tablet,extended release (K-Tab) calcium carbonate 600 mg-vitamin 1 cap PO BID cap 01/13/19 05/23/21 D3 5 mcg (200 unit) capsule (Calcium 600 + D(3)) clopidogrel 75 mg tablet (Plavix) 75 mg PO QAM 05/23/21 05/23/21 diltiazem HCl 120 mg 120 mg PO QAM 05/23/21 05/23/21 capsule,extended release 24 hr lisinopril 2.5 mg tablet 5 mg PO QAM 05/23/21 05/23/21 methotrexate sodium 2.5 mg tablet 10 mg PO WK 05/23/21 05/23/21 rosuvastatin 5 mg tablet 5 mg PO QAM 05/23/21 05/23/21 Previous Rx's Medication Instructions Recorded etanercept 50 mg/mL (1 mL) 50 mg SUBCUT WK #4 ml 03/17/20 subcutaneous pen injector (Enbrel SureClick) apixaban 5 mg tablet (Eliquis) 5 mg PO BID #60 tab 07/15/20 metoprolol succinate 100 mg 100 mg PO QAM #90 tab 09/02/20 tablet,extended release 24 hr (Toprol XL) prednisone 1 mg tablet 3 mg PO .COMPLEX #300 tab 09/30/20 leucovorin calcium 5 mg tablet 10 mg PO WK #28 tab 12/22/20 lorazepam 0.5 mg tablet 0.5 mg PO HS PRN #30 tab 02/16/21 Results & Data (ED) Vital Signs Vital Signs - 24 hr 05/23/21 10:16 05/23/21 12:36 05/23/21 12:54 Temperature 36.8 C Temperature Source Oral Pulse Rate 115 H Pulse Rate [Right] 78 78 Pulse Rhythm [Right] Regular Regular Pulse Strength [Right] Normal Respiratory Rate 20 18 Respiratory Effort / Characteristics Non-Labored Spontaneous Respiratory Depth Normal Respiratory Pattern Regular Blood Pressure 141/101 H Blood Pressure [Right Arm] 163/86 H Blood Pressure Mean 114 Blood Pressure Mean [Right Arm] 111 Blood Pressure Position [Right Arm] Lying Pulse Oximetry 94 98 Oxygen Delivery Method Room Air Room Air Sepsis Recent Fever Within 48 Hours No Sepsis New/Unexplained Change in Mental Status N/A Sepsis Action Taken by Nursing No Action Required 05/23/21 18:00 Temperature Temperature Source Pulse Rate Pulse Rate [Right] 110 H Pulse Rhythm [Right] Regular Pulse Strength [Right] Normal Respiratory Rate 18 Respiratory Effort / Characteristics Non-Labored Spontaneous Respiratory Depth Normal Respiratory Pattern Blood Pressure Blood Pressure [Right Arm] 144/74 H Blood Pressure Mean Blood Pressure Mean [Right Arm] 97 Blood Pressure Position [Right Arm] Lying Pulse Oximetry 98 Oxygen Delivery Method Room Air Sepsis Recent Fever Within 48 Hours Sepsis New/Unexplained Change in Mental Status Sepsis Action Taken by Nursing Laboratory Data Attestation: I reviewed the patient's lab results. Result diagrams: 05/23/21 10:33 05/23/21 10:33 Lab Results 05/23/21 05/23/21 05/23/21 Range/Units 10:33 10:33 10:33 WBC 14.12 H (4.8-10.8) K/uL RBC 4.43 (4.2-5.4) M/uL Hgb 14.6 (12.0-16.0) g/dL Hct 43.6 (37-47) % MCV 98.4 (80-100) fL MCH 33.0 (25-34) pg MCHC 33.5 (32-36) g/dL RDW Std Deviation 51.9 H (36.4-46.3) fL RDW Coeff of Libra 14.5 (11.5-14.5) % Plt Count 251 (130-400) K/uL MPV 10.0 (7.4-10.4) fL Immature Gran % (Auto) 0.4 % Neut % (Auto) 81.7 % Lymph % (Auto) 8.0 % Bracken % (Auto) 9.7 % Eos % (Auto) 0.1 % Baso % (Auto) 0.1 % Neut # (Auto) 11.53 H (1.4-6.5) K/uL Lymph # (Auto) 1.13 L (1.2-3.4) K/uL Bracken # (Auto) 1.37 H (0.11-0.59) K/uL Eos # (Auto) 0.02 (0-0.5) K/uL Baso # (Auto) 0.02 (0-0.2) K/uL Immature Gran # (Auto) 0.05 H (0.00-0.02) K/uL Sodium 134 L (136-145) mmol/L Potassium 3.8 (3.5-5.1) mmol/L Chloride 101 (98-107) mmol/L Carbon Dioxide 20 L (21-32) mmol/L Anion Gap 13 H (3-11) BUN 29 H (6-23) mg/dl Creatinine 0.84 (0.6-1.2) mg/dl Est Cr Clr Drug Dosing Not Reportable Est GFR ( Amer) 76.1 ml/min Est GFR (Non-Af Amer) 65.6 ml/min BUN/Creatinine Ratio 34.5 H (10-20) Glucose 136 H (70-99(Fasting)) mg/dl Lactate (0.4-2.0) mmol/L Calcium 9.1 (8.5-10.1) mg/dl Phosphorus 3.2 (2.5-4.9) mg/dl Magnesium 1.9 (1.7-2.4) mg/dl Total Bilirubin 0.8 (0.2-1.0) mg/dl AST 29 (13-39) U/L ALT 18 (7-52) U/L Alkaline Phosphatase 102 (34-104) U/L Troponin I < 0.03 (0-0.04) ng/ml Total Protein 6.9 (6.0-8.3) gm/dl Albumin 3.5 (3.4-5.0) gm/dl Globulin 3.4 (2.5-4.0) gm/dl Albumin/Globulin Ratio 1.0 (0.9-2) Lipase 10 L (11-82) U/L Procalcitonin 0.90 H (0-0.5) ng/ml Urine Color Urine Appearance (Clear) Urine pH (4.5-7.5) Ur Specific [place] (1.000-1.030) Urine Protein (Negative) Urine Glucose (UA) (Negative) Urine Ketones (Negative) Urine Blood (Negative) Urine Nitrite (Negative) Urine Bilirubin (Negative) Urine Urobilinogen (Negative) Ur Leukocyte Esterase (Negative) Urine WBC (Auto) (0-5) /hpf Urine RBC (Auto) (0-4) /hpf U Hyaline Cast (Auto) (0-5) /lpf U Epithel Cells (Auto) (0-5) /lpf Urine Bacteria (Auto) (Negative) SARS-CoV-2, RNA, NAAT (NEGATIVE) 05/23/21 05/23/21 05/23/21 Range/Units 12:48 12:55 15:52 WBC (4.8-10.8) K/uL RBC (4.2-5.4) M/uL Hgb (12.0-16.0) g/dL Hct (37-47) % MCV (80-100) fL MCH (25-34) pg MCHC (32-36) g/dL RDW Std Deviation (36.4-46.3) fL RDW Coeff of Libra (11.5-14.5) % Plt Count (130-400) K/uL MPV (7.4-10.4) fL Immature Gran % (Auto) % Neut % (Auto) % Lymph % (Auto) % Bracken % (Auto) % Eos % (Auto) % Baso % (Auto) % Neut # (Auto) (1.4-6.5) K/uL Lymph # (Auto) (1.2-3.4) K/uL Bracken # (Auto) (0.11-0.59) K/uL Eos # (Auto) (0-0.5) K/uL Baso # (Auto) (0-0.2) K/uL Immature Gran # (Auto) (0.00-0.02) K/uL Sodium (136-145) mmol/L Potassium (3.5-5.1) mmol/L Chloride (98-107) mmol/L Carbon Dioxide (21-32) mmol/L Anion Gap (3-11) BUN (6-23) mg/dl Creatinine (0.6-1.2) mg/dl Est Cr Clr Drug Dosing Est GFR ( Amer) ml/min Est GFR (Non-Af Amer) ml/min BUN/Creatinine Ratio (10-20) Glucose (70-99(Fasting)) mg/dl Lactate 1.6 (0.4-2.0) mmol/L Calcium (8.5-10.1) mg/dl Phosphorus (2.5-4.9) mg/dl Magnesium (1.7-2.4) mg/dl Total Bilirubin (0.2-1.0) mg/dl AST (13-39) U/L ALT (7-52) U/L Alkaline Phosphatase (34-104) U/L Troponin I (0-0.04) ng/ml Total Protein (6.0-8.3) gm/dl Albumin (3.4-5.0) gm/dl Globulin (2.5-4.0) gm/dl Albumin/Globulin Ratio (0.9-2) Lipase (11-82) U/L Procalcitonin (0-0.5) ng/ml Urine Color Dark Yellow Urine Appearance Cloudy A (Clear) Urine pH 5.5 (4.5-7.5) Ur Specific [place] 1.038 H (1.000-1.030) Urine Protein 2+ H (Negative) Urine Glucose (UA) Negative (Negative) Urine Ketones 3+ H (Negative) Urine Blood 3+ H (Negative) Urine Nitrite Negative (Negative) Urine Bilirubin Negative (Negative) Urine Urobilinogen Negative (Negative) Ur Leukocyte Esterase Negative (Negative) Urine WBC (Auto) >30 H (0-5) /hpf Urine RBC (Auto) >30 H (0-4) /hpf U Hyaline Cast (Auto) 10-30 H (0-5) /lpf U Epithel Cells (Auto) 10-20 H (0-5) /lpf Urine Bacteria (Auto) 3+ H (Negative) SARS-CoV-2, RNA, NAAT NEGATIVE (NEGATIVE) Administered Medications Sodium Chloride (Nss) 500 mls @ 125 mls/hr IV .Q4H AAKASH Stop: 06/22/21 17:59 Last Admin: 05/23/21 19:39 Dose: 125 mls/hr Documented by: [id number] Lactated Ringer's (Lr) 1,000 mls @ 125 mls/hr IV .Q8H AAKASH Stop: 05/24/21 04:14 Last Admin: 05/23/21 21:40 Dose: Not Given Documented by: [id number] Discontinued Medications Apixaban (Apixaban 5 Mg Tablet) 5 mg PO NOW STA Stop: 05/23/21 22:08 Last Admin: 05/23/21 22:37 Dose: 5 mg Documented by: [id number] Diltiazem HCl (Diltiazem Hcl 120 Mg Er Cap) 120 mg PO NOW STA Stop: 05/23/21 22:08 Last Admin: 05/23/21 22:37 Dose: 120 mg Documented by: [id number] Sodium Chloride (Nss 1000ml) 1,000 mls @ 999 mls/hr IV .Q1H1M ONE Stop: 05/23/21 13:20 Last Infusion: 05/23/21 16:08 Dose: 0 mls/hr Documented by: [id number] Admin: 05/23/21 12:50 Dose: 999 mls/hr Documented by: [id number] Acetaminophen (Ofirmev) 1,000 mg in 100 mls @ 400 mls/hr IV NOW STA Stop: 05/23/21 12:35 Last Infusion: 05/23/21 16:08 Dose: 0 mls/hr Documented by: [id number] Admin: 05/23/21 12:50 Dose: 400 mls/hr Documented by: [id number] Ceftriaxone Sodium (Rocephin) 2,000 mg in 70 mls @ 140 mls/hr IV NOW STA Stop: 05/23/21 14:30 Last Infusion: 05/23/21 16:08 Dose: 0 mls/hr Documented by: [id number] Admin: 05/23/21 15:48 Dose: 140 mls/hr Documented by: [id number] Azithromycin 500 mg/ Dextrose 255 mls @ 127.5 mls/hr IV NOW STA Stop: 05/23/21 16:00 Last Infusion: 05/23/21 18:41 Dose: 0 mls/hr Documented by: [id number] Admin: 05/23/21 16:09 Dose: 127.5 mls/hr Documented by: [id number] Ioversol (Optiray 320 100ml) 95 ml IV ONCE ONE Stop: 05/23/21 16:27 Last Admin: 05/23/21 16:26 Dose: 95 ml Documented by: [id number] Imaging Data Radiologist's Impression: Chest X-Ray 05/23/21 12:17 XR chest 1V portable CLINICAL HISTORY: Atypical chest pain TECHNIQUE: Single frontal radiograph of the chest was obtained. Comparison: Comparison is made to chest 2 views 05/04/2019 FINDINGS: No lines and tubes are seen. Cardiomegaly is noted. There is a new airspace opacity in the right upper lobe. Postsurgical changes are again noted in the right lung apex. Blunting of the right costophrenic angle may represent trace right pleural effusion. IMPRESSION: Interval development of right upper lobe airspace opacity which may represent atelectasis, pneumonia, and/or aspiration. Cannot exclude trace right pleural effusion. ACT 112: Negative or not required by law. Electronically signed by: Pk Cross M.D. 05/23/2021 1:01 PM Abdomen/Pelvis CT 05/23/21 14:00 CT OF THE ABDOMEN AND PELVIS WITH CONTRAST CLINICAL HISTORY: ?sepsis, ?UTI COMPARISON STUDY: CT of the abdomen and pelvis May 12, 2019. CTA of the abdomen and pelvis with runoff June 19, 2019. TECHNIQUE: Following IV administration of 95 mL of Optiray, axial images of the abdomen and pelvis were obtained from the lung bases to the proximal femurs. Images were reviewed in the axial, sagittal, and coronal planes. IV contrast was administered without complication. Automated exposure control was utilized for the study. A dose lowering technique was utilized adhering to the principles of ALARA. CT DOSE: 255.13 mGy.cm FINDINGS: Cardiomegaly is incidentally noted. There is a trace left pleural effusion. No pneumatosis, free air or portal venous gas is present. Several hepatic cysts are noted. There is no biliary or pancreatic ductal dilatation. Gallbladder is moderately distended. There is trace fluid and stranding adjacent to the second portion of the duodenum. Mild wall thickening of the second portion of the duodenum is also noted. No fluid collection is present. There is no extraluminal gas. No peripancreatic infiltration is noted. There are no ureteral calculi. There is no hydronephrosis. Scarring within the upper pole of the right kidney is noted. There are suspected small bilateral renal calculi that measure up to 4 mm. There is no evidence for a bowel obstruction. Caliber and wall thickness of small and large bowel are normal. No acute fracture or suspicious lesion is identified within visualized skeletal structures. There is no lymphadenopathy. IMPRESSION: 1. Trace fluid and stranding adjacent to the second portion the duodenum with duodenal wall thickening. These findings may reflect duodenitis/peptic ulcer disease. No extraluminal gas. 2. Gallbladder distention. These findings do not strongly suggest acute cholecystitis however right upper quadrant ultrasound could be obtained for further evaluation. 3. No bowel obstruction. 4. Bilateral nephrolithiasis. No ureteral calculi or hydronephrosis. 5. Cardiomegaly. Trace left pleural effusion. ACT 112: Negative or not required by law. Electronically signed by: Jose Russell M.D. 05/23/2021 4:45 PM Discharge Plan Visit Data Chief Complaint: Illness Stated Complaint: WEAKNESS Discharge Problem: Pneumonia, Urinary tract infection, Atrial fibrillation with rapid ventricular response Discharge Problem: Pneumonia Qualifiers: Pneumonia type: due to unspecified organism Laterality: right Lung location: upper lobe of lung Qualified Code(s): J18.9 - Pneumonia, unspecified organism Urinary tract infection Qualifiers: Urinary tract infection type: site unspecified Hematuria presence: without hematuria Qualified Code(s): N39.0 - Urinary tract infection, site not specified
--- NOTE | 2021-05-23 21:00 | History & Physical Report ---
Date of Service May 23, 2021 Assessment & Plan (1) Pneumonia: Plan: 80F with hx of permanent atrial fibrillation, rheumatoid arthritis, HFrEF, and osteoporosis who presented to ED with fever and shaking chills and admitted for pneumonia, UTI. Pneumonia/pulmonary consolidation * Fever of 102 prior to admission; right upper lobe consolidation on CXR, Procalcitonin 0.9 WBC 14.12; blood cultures pending * IV Rocephin 2 g x1, IV Zithromax 500 mg x1 given in ER * Continue IV Zithromax 500 mg for 2 more days (3 days total), IV Rocephin 2 g q24h for 4 more days (5 days total); will likely delay switch to p.o. due to patient's chronic prednisone use. * IV LR x 1 bag * Trend CBC Asymptomatic bacteriuria * UA negative for nitrites, leukocyte esterase; positive for hematuria, WBCs; patient denies urinary frequency, urgency, or dysuria. * Urine cultures pending * IV Rocephin, Zithromax as above Atrial fibrillation, permanent * Likely secondary to pneumonia * Patient managed by Dr. Sams (yearly visits). * Administered Eliquis 5 mg x 1, diltiazem 120 mg x 1 in the ED for pulse in the 130s. * Continue home regimen of diltiazem 120 mg every morning, Toprol 100 mg every morning, Eliquis 5 mg twice daily. * Trend pulses hourly until < 110 bpm Rheumatoid arthritis * Managed with weekly to monthly administrations of methotrexate 10 mg, etanercept, leucovorin, and folic acid; these were held on admission, can give if patient's hospital stay lasts up to a week. * Continue home prednisone 3 mg, Plavix 75 mg qAM HFrEF * Home lisinopril 5 mg qAM * Home rosuvastatin 5 mg qAM * Home metoprolol, as above Osteoporosis * Home calcium carbonate-vitamin D capsule BID * AM vitamin D labs; titrate as indicated Code: Full Dispo: Med-Surg telemetry FEN/GI: IV LR DVT Prophylaxis: Home Eliquis 5 mg BID PT/OT: ordered (2) Bacteriuria, asymptomatic: (3) Permanent atrial fibrillation: (4) Osteoporosis, unspecified: History of Present Illness Primary Care Provider: Rd Madden MD Nikki is an 80F with PMHx of permanent atrial fibrillation (on Eliquis, diltiazem, and metoprolol), systolic CHF w/ mildly reduced function, rheumatoid arthritis on chronic steroids and MTX, and osteoporosis. She presented to the emergency room today with a chief complaint of chills and progressive weakness /fatigue since Saturday. Pt denies any recent prior illness or inciting exposure. Temperatures were mostly around 99F, though she recorded one-time spike to 102 F yesterday. ROS + reduced appetite, intermittent mild dry cough, and mild dyspnea on exertion, which he attributes to overall fatigue. She denies hemoptysis, wheezing, pleuritic chest pain, dysuria, or recent weight loss. In the ED, CXR revealed right upper lobe consolidation concerning for pneumonia, and bacteriuria (negative nitrites, negative leukocyte esterase, positive urine WBCs, hematuria). She also received IV Azithromycin 500 mg x1 and IV Rocephin 2 g x1[address] Pt. sees Dr[address] Sams yearly for management of her atrial fibrillation and HFrEF. Allergies Allergy/AdvReac Type Severity Reaction Status Date / Time morphine AdvReac Intermediate NAUSEA Verified 05/23/21 12:27 Home Medications Medication Instructions Recorded Confirmed Type potassium chloride 20 mEq 20 meq PO QAM 04/19/18 05/23/21 History tablet,extended release (K-Tab) calcium carbonate 600 mg-vitamin 1 cap PO BID cap 01/13/19 05/23/21 History D3 5 mcg (200 unit) capsule (Calcium 600 + D(3)) etanercept 50 mg/mL (1 mL) 50 mg SUBCUT WK #4 ml 03/17/20 05/23/21 Rx subcutaneous pen injector (Enbrel SureClick) apixaban 5 mg tablet (Eliquis) 5 mg PO BID #60 tab 07/15/20 05/23/21 Rx metoprolol succinate 100 mg 100 mg PO QAM #90 tab 09/02/20 05/23/21 Rx tablet,extended release 24 hr (Toprol XL) prednisone 1 mg tablet 3 mg PO .COMPLEX #300 tab 09/30/20 05/23/21 Rx leucovorin calcium 5 mg tablet 10 mg PO WK #28 tab 12/22/20 05/23/21 Rx lorazepam 0.5 mg tablet 0.5 mg PO HS PRN #30 tab 02/16/21 05/23/21 Rx clopidogrel 75 mg tablet (Plavix) 75 mg PO QAM 05/23/21 05/23/21 History diltiazem HCl 120 mg 120 mg PO QAM 05/23/21 05/23/21 History capsule,extended release 24 hr lisinopril 2.5 mg tablet 5 mg PO QAM 05/23/21 05/23/21 History methotrexate sodium 2.5 mg tablet 10 mg PO WK 05/23/21 05/23/21 History rosuvastatin 5 mg tablet 5 mg PO QAM 05/23/21 05/23/21 History Past Med/Surg History Medical History Atrial fibrillation Atrial fibrillation with RVR Brain aneurysm under surveillance by PCP (stable x years) Bronchitis (~03/23/19) GERD (gastroesophageal reflux disease) Hyperlipidemia Hypertension Kidney stones Osteoporosis, unspecified Pneumonia Rheumatoid arthritis Systolic CHF Surgical History H/O foot surgery History of lithotripsy History of thoracotomy FOR COLLAPSED LUNG - HAD WEDGE RESECTION LOWER RIGHT Hx of cataract extraction Family History Mother Arthritis Father Congestive heart failure (CHF) Aunt Breast cancer Sister Stroke Other Thoracic aortic aneurysm Denies family history of Ovarian cancer Prostate cancer Diabetes Myocardial infarction Lung cancer Colorectal cancer Social History Smoking Status: Never smoker Age Started Using Tobacco: 16; Age Quit Using Tobacco: 45; packs per day: 0.5; Years Smoked: 29; Number of Years Since Quit: 33; Second Hand Exposure: No; Hx Alcohol Use: No Hx Substance Use: No Preferred Language: Uzbek Communication Ability: Effective Visual Impairment: Limited Hearing Ability: Normal 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 Machine Operator Required: No Beliefs That Will Affect Care: None marital status: / Current Living Situation: Alone current occupational status: retired How many Children do You have: 5 Feels Safe at Home: Yes Childhood Exposure to Second-Hand Smoke: Yes (dad did off and on ) caffeine: Yes (coffee) Dental Care, Regularly: No Physical Activity Frequency: Daily Physical Activity Frequency Comment: walks daily Seatbelt Use: always Sunscreen Use: Yes Assistive Devices: Glasses Review of Systems Review of Systems: All systems reviewed & are unremarkable except as noted in HPI & below Physical Exam Physical Exam: General: Patient is AAO x3 and is in no acute distress. HEENT: Non-erythematous oropharynx; no lymphadenopathy; normal dentition. CV: Irregularly irregular rate. Normal S1 and S2. No murmurs gallops or rubs. No pedal edema. Pulmonary: Lungs are clear to auscultation bilaterally. No crackles, rhonchi, or wheezes. Abdomen: Soft, nondistended abdomen. No bruits heard on auscultation. No tenderness to deep palpation. No guarding or rebound. MSK: Full ROM at all joints. Equal 5/5 strength bilaterally. Neuro: No focal findings in CN IIXII. 2+ reflexes at all joints bilaterally. Normal [id number] test. Normal gait. No motor or sensory deficits. Psych: Alert and oriented x3. Congruent mood and affect. Results & Data Results & Data ([facility]) Vital Signs (Past 12 Hours) Vital Signs Temp Pulse Pulse Resp BP BP Pulse Ox 05/23/21 12:54 78 18 163/86 H 98 05/23/21 12:36 78 05/23/21 10:16 36.8 C 115 H 20 141/101 H 94 Laboratory Results Laboratory Results WBC 14.12 K/uL (4.8-10.8) H 05/23/21 10:33 RBC 4.43 M/uL (4.2-5.4) 05/23/21 10:33 Hgb 14.6 g/dL (12.0-16.0) 05/23/21 10:33 Hct 43.6 % (37-47) 05/23/21 10:33 MCV 98.4 fL (80-100) 05/23/21 10:33 MCH 33.0 pg (25-34) 05/23/21 10:33 MCHC 33.5 g/dL (32-36) 05/23/21 10:33 RDW Std Deviation 51.9 fL (36.4-46.3) H 05/23/21 10:33 RDW Coeff of Libra 14.5 % (11.5-14.5) 05/23/21 10:33 Plt Count 251 K/uL (130-400) 05/23/21 10:33 MPV 10.0 fL (7.4-10.4) 05/23/21 10:33 Immature Gran % (Auto) 0.4 % 05/23/21 10:33 Neut % (Auto) 81.7 % 05/23/21 10:33 Lymph % (Auto) 8.0 % 05/23/21 10:33 [place] % (Auto) 9.7 % 05/23/21 10:33 Eos % (Auto) 0.1 % 05/23/21 10:33 Baso % (Auto) 0.1 % 05/23/21 10:33 Neut # (Auto) 11.53 K/uL (1.4-6.5) H 05/23/21 10:33 Lymph # (Auto) 1.13 K/uL (1.2-3.4) L 05/23/21 10:33 [place] # (Auto) 1.37 K/uL (0.11-0.59) H 05/23/21 10:33 Eos # (Auto) 0.02 K/uL (0-0.5) 05/23/21 10:33 Baso # (Auto) 0.02 K/uL (0-0.2) 05/23/21 10:33 Immature Gran # (Auto) 0.05 K/uL (0.00-0.02) H 05/23/21 10:33 Sodium 134 mmol/L (136-145) L 05/23/21 10:33 Potassium 3.8 mmol/L (3.5-5.1) 05/23/21 10:33 Chloride 101 mmol/L (98-107) 05/23/21 10:33 Carbon Dioxide 20 mmol/L (21-32) L 05/23/21 10:33 Anion Gap 13 (3-11) H 05/23/21 10:33 BUN 29 mg/dl (6-23) H 05/23/21 10:33 Creatinine 0.84 mg/dl (0.6-1.2) 05/23/21 10:33 Est Cr Clr Drug Dosing Not Reportable 05/23/21 10:33 Est GFR ( Amer) 76.1 ml/min 05/23/21 10:33 Est GFR (Non-Af Amer) 65.6 ml/min 05/23/21 10:33 BUN/Creatinine Ratio 34.5 (10-20) H 05/23/21 10:33 Glucose 136 mg/dl (70-99(Fasting)) H 05/23/21 10:33 Lactate 1.6 mmol/L (0.4-2.0) 05/23/21 12:55 Calcium 9.1 mg/dl (8.5-10.1) 05/23/21 10:33 Phosphorus 3.2 mg/dl (2.5-4.9) 05/23/21 10:33 Magnesium 1.9 mg/dl (1.7-2.4) 05/23/21 10:33 Total Bilirubin 0.8 mg/dl (0.2-1.0) 05/23/21 10:33 AST 29 U/L (13-39) 05/23/21 10:33 ALT 18 U/L (7-52) 05/23/21 10:33 Alkaline Phosphatase 102 U/L (34-104) 05/23/21 10:33 Troponin I < 0.03 ng/ml (0-0.04) 05/23/21 10:33 Total Protein 6.9 gm/dl (6.0-8.3) 05/23/21 10:33 Albumin 3.5 gm/dl (3.4-5.0) 05/23/21 10:33 Globulin 3.4 gm/dl (2.5-4.0) 05/23/21 10:33 Albumin/Globulin Ratio 1.0 (0.9-2) 05/23/21 10:33 Lipase 10 U/L (11-82) L 05/23/21 10:33 Procalcitonin 0.90 ng/ml (0-0.5) H 05/23/21 10:33 Urine Color Dark Yellow 05/23/21 15:52 Urine Appearance Cloudy (Clear) A 05/23/21 15:52 Urine pH 5.5 (4.5-7.5) 05/23/21 15:52 Ur Specific [place] 1.038 (1.000-1.030) H 05/23/21 15:52 Urine Protein 2+ (Negative) H 05/23/21 15:52 Urine Glucose (UA) Negative (Negative) 05/23/21 15:52 Urine Ketones 3+ (Negative) H 05/23/21 15:52 Urine Blood 3+ (Negative) H 05/23/21 15:52 Urine Nitrite Negative (Negative) 05/23/21 15:52 Urine Bilirubin Negative (Negative) 05/23/21 15:52 Urine Urobilinogen Negative (Negative) 05/23/21 15:52 Ur Leukocyte Esterase Negative (Negative) 05/23/21 15:52 Urine WBC (Auto) >30 /hpf (0-5) H 05/23/21 15:52 Urine RBC (Auto) >30 /hpf (0-4) H 05/23/21 15:52 U Hyaline Cast (Auto) 10-30 /lpf (0-5) H 05/23/21 15:52 U Epithel Cells (Auto) 10-20 /lpf (0-5) H 05/23/21 15:52 Urine Bacteria (Auto) 3+ (Negative) H 05/23/21 15:52 Influ A Molecular Assay Negative (Negative) 05/23/21 21:50 Influ B Molecular Assay Negative (Negative) 05/23/21 21:50 SARS-CoV-2, RNA, NAAT NEGATIVE (NEGATIVE) 05/23/21 12:48 Impressions Chest X-Ray 05/23/21 12:17 XR chest 1V portable CLINICAL HISTORY: Atypical chest pain TECHNIQUE: Single frontal radiograph of the chest was obtained. Comparison: Comparison is made to chest 2 views 05/04/2019 FINDINGS: No lines and tubes are seen. Cardiomegaly is noted. There is a new airspace opacity in the right upper lobe. Postsurgical changes are again noted in the right lung apex. Blunting of the right costophrenic angle may represent trace right pleural effusion. IMPRESSION: Interval development of right upper lobe airspace opacity which may represent atelectasis, pneumonia, and/or aspiration. Cannot exclude trace right pleural effusion. ACT 112: Negative or not required by law. Electronically signed by: Pk Cross M.D. 05/23/2021 1:01 PM Abdomen/Pelvis CT 05/23/21 14:00 CT OF THE ABDOMEN AND PELVIS WITH CONTRAST CLINICAL HISTORY: ?sepsis, ?UTI COMPARISON STUDY: CT of the abdomen and pelvis May 12, 2019. CTA of the abdomen and pelvis with runoff June 19, 2019. TECHNIQUE: Following IV administration of 95 mL of Optiray, axial images of the abdomen and pelvis were obtained from the lung bases to the proximal femurs. Images were reviewed in the axial, sagittal, and coronal planes. IV contrast was administered without complication. Automated exposure control was utilized for the study. A dose lowering technique was utilized adhering to the principles of ALARA. CT DOSE: 255.13 mGy.cm FINDINGS: Cardiomegaly is incidentally noted. There is a trace left pleural effusion. No pneumatosis, free air or portal venous gas is present. Several hepatic cysts are noted. There is no biliary or pancreatic ductal dilatation. Gallbladder is moderately distended. There is trace fluid and stranding adjacent to the second portion of the duodenum. Mild wall thickening of the second portion of the duodenum is also noted. No fluid collection is present. There is no extraluminal gas. No peripancreatic infiltration is noted. There are no ureteral calculi. There is no hydronephrosis. Scarring within the upper pole of the right kidney is noted. There are suspected small bilateral renal calculi that measure up to 4 mm. There is no evidence for a bowel obstruction. Caliber and wall thickness of small and large bowel are normal. No acute fracture or suspicious lesion is identified within visualized skeletal structures. There is no lymphadenopathy. IMPRESSION: 1. Trace fluid and stranding adjacent to the second portion the duodenum with duodenal wall thickening. These findings may reflect duodenitis/peptic ulcer dis ease. No extraluminal gas. 2. Gallbladder distention. These findings do not strongly suggest acute cholecystitis however right upper quadrant ultrasound could be obtained for further evaluation. 3. No bowel obstruction. 4. Bilateral nephrolithiasis. No ureteral calculi or hydronephrosis. 5. Cardiomegaly. Trace left pleural effusion. ACT 112: Negative or not required by law. Electronically signed by: Jose Russell M.D. 05/23/2021 4:45 PM ECG Additional Comments: EKG with atrial fibrillation at 138bpm, normal axis, QRS=78, GEm=144, no acute ischemic changes Supervising Physician Co-Signing Physician Notes Patient seen and examined, chart reviewed, case discussed with Dr. Guillen and I agree with his assessment and plan as documented above. In brief, patient is an 80yo female with history of RA on MTX and chronic steroids presenting with RUL PNA. Patient with 3/4 SIRS - reported fever, tachycardia and leukocytosis on arrival. CXR with RUL airspace opacity concerning for PNA. Procalcitonin = 0.9. Covid-19 testing is NEGATIVE On exam patient is afebrile, tachycardic, frail in appearance Skin -thin, no rashes HEENT - MMM, Neck supple Heart - +S1/S2, irregularly irregular, tachycardic, no m/r/g Lungs - tachypneic after ambulating to restroom, saturations maintained, CTA without rales/rhonchi/wheezes Abd- +BS, soft, NT/ND Ext - no edema. Bony changes consistent with RA noted in hands - ulnar deviation, and [place] neck deformity Labs and images reviewed Assessment/Plan - 80yo female with RA on chronic steroids and MTX presenting with presumed RUL PNA. -Ceftriaxone and Azithromycin - low threshold to broaden given patient's immunocompromised state -Continue Eliquis, Metoprolol and Diltiazem. IV Metoprolol as needed for HR >120 -IV hydration - patient appears clinically dry on exam and labs (received 1500mL in ER so far - will give 500mL now for elevated HR - is written for additional liter on floor) -PT/OT evaluation - patient quite weak with ambulation requiring assistance -Remainder as above Resident Activity Tracking Resident Involvement: Resident Care Provided Care Provided: Adult Hospital Medicine (1) Osteoporosis, unspecified Osteoporosis type: age-related Presence of current pathological fracture: without current pathological fracture Qualified Code(s): M81.0 - Age-related osteoporosis without current pathological fracture
[2021-05-23] MEDS ORDERED: APIXABAN 5 MG TABLET PO STA (22:07)
[2021-05-23 22:17] LABS: Influenza A virus by PCR Negative (Negative); Influenza B virus by PCR Negative (Negative)
--- NOTE | 2021-05-23 23:56 | Billing Data ---
Date of Service May 23, 2021 Coding Level of Care Code 53054 Initial Inpt Care Lvl 3
[2021-05-24] MEDS ORDERED: LORazepam 0.5 MG TAB PO PRN (00:55)
[2021-05-24] MEDS ORDERED: [UNRECOGNIZED DRUG - OTHER] PO SCH (00:55)
[2021-05-24] MEDS ORDERED: SODIUM CHLORIDE 0.9% 500 ML IV ONE (00:55)
[2021-05-24] MEDS ORDERED: METOPROLOL TARTRATE 1 MG/ML VIAL IV PRN (00:55)
[2021-05-24] MEDS: APIXABAN 5 MG TABLET PO SCH ×3 (01:40→20:08)
[2021-05-24] MEDS: SODIUM CHLORIDE 0.9% 500 ML IV SCH (01:45)
[2021-05-24 05:31] LABS: Basophils # (auto) 0.02 K/uL (0-0.2); Basophils % (auto) 0.1 %; Hematocrit (blood only) 37.8 % (37-47); Hemoglobin 12.6 g/dL (12.0-16.0); Immature Granulocytes # (auto) 0.05 K/uL (0.00-0.02); Immature Granulocytes % (auto) 0.4 %; Lymphocytes # (auto) 1.07 K/uL (1.2-3.4); Lymphocytes % (auto) 7.8 %; Mean Corpuscular Hemoglobin 32.6 pg (25-34); Mean Corpuscular Hgb Conc 33.3 g/dL (32-36); Mean Corpuscular Volume 97.9 fL (80-100); Mean Platelet Volume 10.2 fL (7.4-10.4); Monocytes % (auto) 10.2 %; Neutrophils # (auto) 11.21 K/uL (1.4-6.5); Neutrophils % (auto) 81.5 %; Platelet Count 238 K/uL (130-400); RDW Coefficient of Variation 14.7 % (11.5-14.5); RDW Standard Deviation 52.3 fL (36.4-46.3); Red Blood Count 3.86 M/uL (4.2-5.4); White Blood Count 13.75 K/uL (4.8-10.8)
[2021-05-24 05:56] LABS: BUN Creatinine Ratio 41.3 (10-20); Calcium 8.1 mg/dl (8.5-10.1); Creatinine Clr Calc Pharmacy 64.6 ml/min; Est GFR (African American) 98.2 ml/min; Est GFR (Non-African American) 84.7 ml/min
[2021-05-24] MEDS: ROSUVASTATIN CALCIUM 5 MG TAB PO SCH (08:45)
[2021-05-24] MEDS: METOPROLOL SUCC 50MG EXT REL TAB PO SCH (08:45)
[2021-05-24] MEDS: CALCIUM 600MG + VIT D 400 IU TAB PO SCH ×2 (08:46→20:08)
[2021-05-24] MEDS: CLOPIDOGREL BISULFATE 75 MG TAB PO SCH (08:46)
[2021-05-24] MEDS: lisinopril 5 MG TAB PO SCH (08:46)
[2021-05-24] MEDS: POTASSIUM CHLORIDE CRTAB 20 MEQ TABCR PO SCH (08:46)
[2021-05-24] MEDS: dilTIAZem HCL 120 MG CAPCR PO SCH (08:46)
[2021-05-24] MEDS ORDERED: PANTOprazole 40 MG in SYRINGE 0 ML IV SCH (09:00)
[2021-05-24] MEDS ORDERED: predniSONE 1 MG TAB PO SCH (09:00)
[2021-05-24] MEDS: PANTOprazole 40 MG in SYRINGE 0 ML IV SCH ×2 (10:34→20:07)
[2021-05-24] MEDS: predniSONE 20 MG TAB PO SCH (10:34)
[2021-05-24] MEDS: FOLIC ACID 1 MG TAB PO SCH (10:34)
[2021-05-24] MEDS ORDERED: ACETAMINOPHEN 325 MG TAB PO PRN (11:03)
--- NOTE | 2021-05-24 11:12 | Hospitalist Progress Note ---
Date of Service May 24, 2021 Assessment & Plan (1) Sepsis: Plan: Presented with fevers, leukocytosis, tachycardia, and source of infection being both pneumonia and UTI Lactate negative, procalcitonin elevated on admission Chest x-ray with right upper lobe pneumonia Persists with evidence of hypovolemia with tachycardia, metabolic acidosis, hyponatremia, and elevated BUN. Blood pressures are stable Covid-19 and influenza A/B both negative CT abdomen/pelvis with evidence of duodenitis, bilateral renal stones but no ureterolithiasis, no other evidence of infection This is in the setting of immune suppression with a history of rheumatoid arthritis on methotrexate, chronic prednisone, and etanercept Leukocytosis is slightly improved today Still feels generally very weak, no fever since arrival -Give 1 more liter of normal saline at 80 mL's per hour -Continue antibiotic coverage for community-acquired pneumonia and UTI with ceftriaxone and azithromycin -Give stress dose steroids with prednisone 40 mg daily for now -Follow blood cultures, urine culture, sputum culture if can produce -Follow CBC, CMP, CRP, procalcitonin, magnesium, phosphorus in the morning -Repeat chest x-ray in the morning -If condition not improving within 24 hours, consider broadening antibiotic coverage given immune suppression (2) Pneumonia: Plan: As above Not hypoxic Follow chest x-ray in the morning Continue antibiotics and follow cultures (3) Urinary tract infection: Plan: As above, abnormal UA although without any urinary symptoms Follow urine culture Continue ceftriaxone (4) Permanent atrial fibrillation: Plan: Rapid afib persists, likely secondary to sepsis and hypovolemia Patient managed by Dr. Sams (yearly visits). -Hydrating with crystalloid as above for volume resuscitation -Continue to monitor on telemetry -Give IV Lopressor 2.5 mg x 1 now on the evening of 05/24 for persistent tachycardia -Continue home regimen of diltiazem 120 mg every morning, Toprol 100 mg every morning, Eliquis 5 mg twice daily. (5) Duodenitis: Plan: Noted on CT abdomen/pelvis She does have nausea but no vomiting, no melena or hematemesis Could certainly have peptic ulcer disease given long history of chronic prednisone -Start Protonix 40 mg IV twice daily given ongoing nausea Monitor for any evidence of GI bleeding No need for GI consultation or endoscopy at this point (6) Metabolic acidosis: Plan: As above, lactate negative, likely secondary to dehydration Giving volume resuscitation as above Follow BMP (7) Hyponatremia: Plan: Likely secondary to dehydration, sodium mildly low at 133 Give 1 more liter of normal saline as above Follow BMP (8) Osteoporosis, unspecified: Plan: -Continue Home calcium carbonate-vitamin D capsule BID (9) Chronic anticoagulation: Plan: Continue Eliquis (10) Hypertension: Plan: Blood pressures are normal Continue home diltiazem, metoprolol, lisinopril (11) Cardiomyopathy: Plan: With a history of HFrEF now improved No evidence of volume overload at this time Continue home lisinopril, metoprolol Follow I's and O's, daily weights (12) Chronic steroid use: Plan: On prednisone 3 mg p.o. once daily for rheumatoid arthritis Giving stress of steroids with 40 mg of prednisone daily for now (13) Rheumatoid arthritis: Plan: Managed with methotrexate 10 mg, etanercept, chronic prednisone -Hold home methotrexate and Enbrel while acutely infected -Continue prednisone and giving stress dose steroids as above (14) Anxiety: Plan: Continue home lorazepam as needed (15) PAD (peripheral artery disease): Plan: With a history of angioplasty and stenting in bilateral legs with vascular surgery Continue Plavix, statin Plan: DVT prophylaxis-Eliquis Disposition-continued stay on medical floor telemetry Admission and Anticipated Discharge Date Admission Date: May 23, 2021 Subjective Patient seen on 2 occasions today. The first was in the morning. She reports her nausea is somewhat improved and she feels slightly hungry. Denies any abdominal pain. No diarrhea or black tarry stools or bloody stools. Denies chest pains or shortness of breath, no cough. Just feels she has been having fevers and chills, generalized weakness, and gets really worn out just with walking to the bathroom and back. She denies any urinary symptoms. She denies any difficulty with dysphagia or odynophagia, does not cough after eating. I went back to check on her later in the evening and she reported she was not able to eat much at all throughout the day due to lack of appetite, and was still feeling worn out with minimal exertion. Telemetry with atrial fibrillation with rates persistently in the 120s. Her son who is a physician's assistant accounting manager was at the bedside. Review of Systems Review of Systems: All systems reviewed & are unremarkable except as noted in HPI & below Physical Exam Constitutional: WD/WN, vitals as above Eyes: + anicteric sclerae Neck: trachea midline, no thyromegaly Respiratory: normal respiratory effort; no cough and not tachypneic Auscultation: + crackles (At right middle and upper lung manzano); no rhonchi and no wheezes Cardiovascular: Rate/Rhythm: + tachycardic and + irregularly irregular Heart Sounds: no murmur Extremities: no edema Chest (Breasts): Chest: normal inspection of chest Gastrointestinal (Abdomen): normal bowel sounds, soft, nontender, no hepatosplenomegaly Musculoskeletal: Extremities: extremities normal to inspection; no cyanosis and no clubbing Skin: no rashes, warm and dry Neurologic: moves all extremities and awake; no focal motor deficits Psychiatric: A+Ox3, euthymic affect Lymphatic: no lymphedema Results & Data Results & Data ([facility]) Vital Signs (Past 12 Hours) Vital Signs Temp Pulse Pulse Resp BP Pulse Ox 05/24/21 08:20 36.3 C L 129 H 18 138/85 93 05/24/21 07:38 106 H 26 H 131/87 94 05/24/21 04:02 101 H 133/101 H 92 05/24/21 02:12 115 H 137/93 91 05/24/21 01:32 130 H 150/108 H 94 05/24/21 00:26 138 H 138 H 145/100 H 92 Laboratory Results 05/24/21 05/24/21 05/24/21 Range/Units 06:08 04:58 04:58 WBC (4.8-10.8) K/uL RBC (4.2-5.4) M/uL Hgb (12.0-16.0) g/dL Hct (37-47) % MCV (80-100) fL MCH (25-34) pg MCHC (32-36) g/dL RDW Std Deviation (36.4-46.3) fL RDW Coeff of Libra (11.5-14.5) % Plt Count (130-400) K/uL MPV (7.4-10.4) fL Immature Gran % (Auto) % Neut % (Auto) % Lymph % (Auto) % [place] % (Auto) % Eos % (Auto) % Baso % (Auto) % Neut # (Auto) (1.4-6.5) K/uL Lymph # (Auto) (1.2-3.4) K/uL [place] # (Auto) (0.11-0.59) K/uL Eos # (Auto) (0-0.5) K/uL Baso # (Auto) (0-0.2) K/uL Immature Gran # (Auto) (0.00-0.02) K/uL Sodium 133 L (136-145) mmol/L Potassium 3.8 (3.5-5.1) mmol/L Chloride 104 (98-107) mmol/L Carbon Dioxide 17 L (21-32) mmol/L Anion Gap 12 H (3-11) BUN 26 H (6-23) mg/dl Creatinine 0.63 (0.6-1.2) mg/dl Est Cr Clr Drug Dosing 64.6 Est GFR ( Amer) 98.2 ml/min Est GFR (Non-Af Amer) 84.7 ml/min BUN/Creatinine Ratio 41.3 H (10-20) Glucose 173 H (70-99(Fasting)) mg/dl Lactate (0.4-2.0) mmol/L Calcium 8.1 L (8.5-10.1) mg/dl Phosphorus (2.5-4.9) mg/dl Magnesium (1.7-2.4) mg/dl Total Bilirubin (0.2-1.0) mg/dl AST (13-39) U/L ALT (7-52) U/L Alkaline Phosphatase (34-104) U/L Troponin I (0-0.04) ng/ml Total Protein (6.0-8.3) gm/dl Albumin (3.4-5.0) gm/dl Globulin (2.5-4.0) gm/dl Albumin/Globulin Ratio (0.9-2) Lipase (11-82) U/L 25-OH Vitamin D Total 46.2 (30-100) ng/ml Procalcitonin (0-0.5) ng/ml Urine Color Urine Appearance (Clear) Urine pH (4.5-7.5) Ur Specific [place] (1.000-1.030) Urine Protein (Negative) Urine Glucose (UA) (Negative) Urine Ketones (Negative) Urine Blood (Negative) Urine Nitrite (Negative) Urine Bilirubin (Negative) Urine Urobilinogen (Negative) Ur Leukocyte Esterase (Negative) Urine WBC (Auto) (0-5) /hpf Urine RBC (Auto) (0-4) /hpf U Hyaline Cast (Auto) (0-5) /lpf U Epithel Cells (Auto) (0-5) /lpf Urine Bacteria (Auto) (Negative) Influ A Molecular Assay (Negative) Influ B Molecular Assay (Negative) SARS-CoV-2, RNA, NAAT (NEGATIVE) 05/24/21 05/23/21 05/23/21 Range/Units 04:58 21:50 15:52 WBC 13.75 H (4.8-10.8) K/uL RBC 3.86 L (4.2-5.4) M/uL Hgb 12.6 (12.0-16.0) g/dL Hct 37.8 (37-47) % MCV 97.9 (80-100) fL MCH 32.6 (25-34) pg MCHC 33.3 (32-36) g/dL RDW Std Deviation 52.3 H (36.4-46.3) fL RDW Coeff of Libra 14.7 H (11.5-14.5) % Plt Count 238 (130-400) K/uL MPV 10.2 (7.4-10.4) fL Immature Gran % (Auto) 0.4 % Neut % (Auto) 81.5 % Lymph % (Auto) 7.8 % [place] % (Auto) 10.2 % Eos % (Auto) 0.0 % Baso % (Auto) 0.1 % Neut # (Auto) 11.21 H (1.4-6.5) K/uL Lymph # (Auto) 1.07 L (1.2-3.4) K/uL [place] # (Auto) 1.40 H (0.11-0.59) K/uL Eos # (Auto) 0.00 (0-0.5) K/uL Baso # (Auto) 0.02 (0-0.2) K/uL Immature Gran # (Auto) 0.05 H (0.00-0.02) K/uL Sodium (136-145) mmol/L Potassium (3.5-5.1) mmol/L Chloride (98-107) mmol/L Carbon Dioxide (21-32) mmol/L Anion Gap (3-11) BUN (6-23) mg/dl Creatinine (0.6-1.2) mg/dl Est Cr Clr Drug Dosing Est GFR ( Amer) ml/min Est GFR (Non-Af Amer) ml/min BUN/Creatinine Ratio (10-20) Glucose (70-99(Fasting)) mg/dl Lactate (0.4-2.0) mmol/L Calcium (8.5-10.1) mg/dl Phosphorus (2.5-4.9) mg/dl Magnesium (1.7-2.4) mg/dl Total Bilirubin (0.2-1.0) mg/dl AST (13-39) U/L ALT (7-52) U/L Alkaline Phosphatase (34-104) U/L Troponin I (0-0.04) ng/ml Total Protein (6.0-8.3) gm/dl Albumin (3.4-5.0) gm/dl Globulin (2.5-4.0) gm/dl Albumin/Globulin Ratio (0.9-2) Lipase (11-82) U/L 25-OH Vitamin D Total (30-100) ng/ml Procalcitonin (0-0.5) ng/ml Urine Color Dark Yellow Urine Appearance Cloudy A (Clear) Urine pH 5.5 (4.5-7.5) Ur Specific [place] 1.038 H (1.000-1.030) Urine Protein 2+ H (Negative) Urine Glucose (UA) Negative (Negative) Urine Ketones 3+ H (Negative) Urine Blood 3+ H (Negative) Urine Nitrite Negative (Negative) Urine Bilirubin Negative (Negative) Urine Urobilinogen Negative (Negative) Ur Leukocyte Esterase Negative (Negative) Urine WBC (Auto) >30 H (0-5) /hpf Urine RBC (Auto) >30 H (0-4) /hpf U Hyaline Cast (Auto) 10-30 H (0-5) /lpf U Epithel Cells (Auto) 10-20 H (0-5) /lpf Urine Bacteria (Auto) 3+ H (Negative) Influ A Molecular Assay Negative (Negative) Influ B Molecular Assay Negative (Negative) SARS-CoV-2, RNA, NAAT (NEGATIVE) 05/23/21 05/23/21 05/23/21 Range/Units 12:55 12:48 10:33 WBC (4.8-10.8) K/uL RBC (4.2-5.4) M/uL Hgb (12.0-16.0) g/dL Hct (37-47) % MCV (80-100) fL MCH (25-34) pg MCHC (32-36) g/dL RDW Std Deviation (36.4-46.3) fL RDW Coeff of Libra (11.5-14.5) % Plt Count (130-400) K/uL MPV (7.4-10.4) fL Immature Gran % (Auto) % Neut % (Auto) % Lymph % (Auto) % [place] % (Auto) % Eos % (Auto) % Baso % (Auto) % Neut # (Auto) (1.4-6.5) K/uL Lymph # (Auto) (1.2-3.4) K/uL [place] # (Auto) (0.11-0.59) K/uL Eos # (Auto) (0-0.5) K/uL Baso # (Auto) (0-0.2) K/uL Immature Gran # (Auto) (0.00-0.02) K/uL Sodium (136-145) mmol/L Potassium (3.5-5.1) mmol/L Chloride (98-107) mmol/L Carbon Dioxide (21-32) mmol/L Anion Gap (3-11) BUN (6-23) mg/dl Creatinine (0.6-1.2) mg/dl Est Cr Clr Drug Dosing Est GFR ( Amer) ml/min Est GFR (Non-Af Amer) ml/min BUN/Creatinine Ratio (10-20) Glucose (70-99(Fasting)) mg/dl Lactate 1.6 (0.4-2.0) mmol/L Calcium (8.5-10.1) mg/dl Phosphorus (2.5-4.9) mg/dl Magnesium (1.7-2.4) mg/dl Total Bilirubin (0.2-1.0) mg/dl AST (13-39) U/L ALT (7-52) U/L Alkaline Phosphatase (34-104) U/L Troponin I (0-0.04) ng/ml Total Protein (6.0-8.3) gm/dl Albumin (3.4-5.0) gm/dl Globulin (2.5-4.0) gm/dl Albumin/Globulin Ratio (0.9-2) Lipase (11-82) U/L 25-OH Vitamin D Total (30-100) ng/ml Procalcitonin 0.90 H (0-0.5) ng/ml Urine Color Urine Appearance (Clear) Urine pH (4.5-7.5) Ur Specific [place] (1.000-1.030) Urine Protein (Negative) Urine Glucose (UA) (Negative) Urine Ketones (Negative) Urine Blood (Negative) Urine Nitrite (Negative) Urine Bilirubin (Negative) Urine Urobilinogen (Negative) Ur Leukocyte Esterase (Negative) Urine WBC (Auto) (0-5) /hpf Urine RBC (Auto) (0-4) /hpf U Hyaline Cast (Auto) (0-5) /lpf U Epithel Cells (Auto) (0-5) /lpf Urine Bacteria (Auto) (Negative) Influ A Molecular Assay (Negative) Influ B Molecular Assay (Negative) SARS-CoV-2, RNA, NAAT NEGATIVE (NEGATIVE) 05/23/21 05/23/21 Range/Units 10:33 10:33 WBC 14.12 H (4.8-10.8) K/uL RBC 4.43 (4.2-5.4) M/uL Hgb 14.6 (12.0-16.0) g/dL Hct 43.6 (37-47) % MCV 98.4 (80-100) fL MCH 33.0 (25-34) pg MCHC 33.5 (32-36) g/dL RDW Std Deviation 51.9 H (36.4-46.3) fL RDW Coeff of Libra 14.5 (11.5-14.5) % Plt Count 251 (130-400) K/uL MPV 10.0 (7.4-10.4) fL Immature Gran % (Auto) 0.4 % Neut % (Auto) 81.7 % Lymph % (Auto) 8.0 % [place] % (Auto) 9.7 % Eos % (Auto) 0.1 % Baso % (Auto) 0.1 % Neut # (Auto) 11.53 H (1.4-6.5) K/uL Lymph # (Auto) 1.13 L (1.2-3.4) K/uL [place] # (Auto) 1.37 H (0.11-0.59) K/uL Eos # (Auto) 0.02 (0-0.5) K/uL Baso # (Auto) 0.02 (0-0.2) K/uL Immature Gran # (Auto) 0.05 H (0.00-0.02) K/uL Sodium 134 L (136-145) mmol/L Potassium 3.8 (3.5-5.1) mmol/L Chloride 101 (98-107) mmol/L Carbon Dioxide 20 L (21-32) mmol/L Anion Gap 13 H (3-11) BUN 29 H (6-23) mg/dl Creatinine 0.84 (0.6-1.2) mg/dl Est Cr Clr Drug Dosing Not Reportable Est GFR ( Amer) 76.1 ml/min Est GFR (Non-Af Amer) 65.6 ml/min BUN/Creatinine Ratio 34.5 H (10-20) Glucose 136 H (70-99(Fasting)) mg/dl Lactate (0.4-2.0) mmol/L Calcium 9.1 (8.5-10.1) mg/dl Phosphorus 3.2 (2.5-4.9) mg/dl Magnesium 1.9 (1.7-2.4) mg/dl Total Bilirubin 0.8 (0.2-1.0) mg/dl AST 29 (13-39) U/L ALT 18 (7-52) U/L Alkaline Phosphatase 102 (34-104) U/L Troponin I < 0.03 (0-0.04) ng/ml Total Protein 6.9 (6.0-8.3) gm/dl Albumin 3.5 (3.4-5.0) gm/dl Globulin 3.4 (2.5-4.0) gm/dl Albumin/Globulin Ratio 1.0 (0.9-2) Lipase 10 L (11-82) U/L 25-OH Vitamin D Total (30-100) ng/ml Procalcitonin (0-0.5) ng/ml Urine Color Urine Appearance (Clear) Urine pH (4.5-7.5) Ur Specific [place] (1.000-1.030) Urine Protein (Negative) Urine Glucose (UA) (Negative) Urine Ketones (Negative) Urine Blood (Negative) Urine Nitrite (Negative) Urine Bilirubin (Negative) Urine Urobilinogen (Negative) Ur Leukocyte Esterase (Negative) Urine WBC (Auto) (0-5) /hpf Urine RBC (Auto) (0-4) /hpf U Hyaline Cast (Auto) (0-5) /lpf U Epithel Cells (Auto) (0-5) /lpf Urine Bacteria (Auto) (Negative) Influ A Molecular Assay (Negative) Influ B Molecular Assay (Negative) SARS-CoV-2, RNA, NAAT (NEGATIVE) PG Care Time/CCT Total # of Minutes Spent Total Time Spent with Patient: Total time spent is greater than 50% in coordination of care (as documented) at patient's floor/unit and/or counseling patient: Coding Level of Care Code 57937 Subseq Hosp Care Lvl 3 Diagnoses Pneumonia J18.9 Laterality: right Lung location: upper lobe of lung Pneumonia type: due to unspecified organism Permanent atrial fibrillation I48.21 Osteoporosis, unspecified M81.0 Osteoporosis type: age-related Presence of current pathological fracture: without current pathological fracture Sepsis A41.9 Urinary tract infection N39.0 Hematuria presence: without hematuria Urinary tract infection type: site unspecified Chronic anticoagulation Z79.01 Hypertension I10 Hypertension type: essential hypertension Cardiomyopathy I42.9 Cardiomyopathy type: unspecified Duodenitis K29.80 Chronic steroid use Anxiety F41.9 Rheumatoid arthritis M05.79 Rheumatoid arthritis location: multiple sites Rheumatoid factor presence: with rheumatoid factor Metabolic acidosis E87.2 Hyponatremia E87.1 PAD (peripheral artery disease) I73.9 (1) Urinary tract infection Hematuria presence: without hematuria Urinary tract infection type: site unspecified Qualified Code(s): N39.0 - Urinary tract infection, site not specified (2) Rheumatoid arthritis Rheumatoid arthritis location: multiple sites Rheumatoid factor presence: with rheumatoid factor Qualified Code(s): M05.79 - Rheumatoid arthritis with rheumatoid factor of multiple sites without organ or systems involvement (3) Osteoporosis, unspecified Osteoporosis type: age-related Presence of current pathological fracture: without current pathological fracture Qualified Code(s): M81.0 - Age-related osteoporosis without current pathological fracture (4) Hypertension Hypertension type: essential hypertension Qualified Code(s): I10 - Essential (primary) hypertension (5) Cardiomyopathy Cardiomyopathy type: unspecified Qualified Code(s): I42.9 - Cardiomyopathy, unspecified (6) Pneumonia Laterality: right Lung location: upper lobe of lung Pneumonia type: due to unspecified organism Qualified Code(s): J18.9 - Pneumonia, unspecified organism
[2021-05-24] MEDS ORDERED: LEVALBUTEROL HCL 0.63 MG/3 ML NEB NEB STA (11:13)
[2021-05-24] MEDS ORDERED: SODIUM CHLORIDE 0.9% 1000ML 1,000 ML IV SCH (11:15)
[2021-05-24] MEDS: cefTRIAXone SODIUM 2,000 MG in DEXTROSE 5% 50 ML IV SCH (13:20)
[2021-05-24] MEDS ORDERED: cefTRIAXone SODIUM 1,000 MG in DEXTROSE 5% 50 ML IV SCH (14:00)
[2021-05-24] MEDS ORDERED: AZITHROMYCIN 500 MG in DEXTROSE 5% 250 ML IV SCH (16:00)
[2021-05-24] MEDS ORDERED: LEVALBUTEROL HCL 0.63 MG/3 ML NEB NEB PRN (17:00)
[2021-05-24] MEDS ORDERED: METOPROLOL TARTRATE 1 MG/ML VIAL IV STA (18:26)
--- NOTE | 2021-05-24 21:26 | Electrocardiogram Report ---
Test Reason : Blood Pressure : / mmHG Vent. Rate : 138 BPM Atrial Rate : 150 BPM P-R Int : 000 ms QRS Dur : 078 ms QT Int : 336 ms P-R-T Axes : 000 015 043 degrees QTc Int : 509 ms Poor data quality, interpretation may be adversely affected Atrial fibrillation with rapid ventricular response Abnormal ECG When compared with ECG of 12-MAY-2019 09:06, Nonspecific T wave abnormality no longer evident in Lateral leads Confirmed by Drew Basurto ([id number]) on 05/24/2021 9:26:01 PM Referred By: Rd Madden Confirmed By:Drew Basurto
[2021-05-25 07:23] LABS: Basophils # (auto) 0.01 K/uL (0-0.2); Basophils % (auto) 0.1 %; Hematocrit (blood only) 35.7 % (37-47); Immature Granulocytes # (auto) 0.05 K/uL (0.00-0.02); Immature Granulocytes % (auto) 0.3 %; Lymphocytes # (auto) 1.75 K/uL (1.2-3.4); Lymphocytes % (auto) 11.3 %; Mean Corpuscular Hemoglobin 32.8 pg (25-34); Mean Corpuscular Hgb Conc 33.6 g/dL (32-36); Mean Corpuscular Volume 97.5 fL (80-100); Mean Platelet Volume 10.1 fL (7.4-10.4); Monocytes # (auto) 1.54 K/uL (0.11-0.59); Monocytes % (auto) 9.9 %; Neutrophils # (auto) 12.17 K/uL (1.4-6.5); Neutrophils % (auto) 78.4 %; Platelet Count 264 K/uL (130-400); RDW Coefficient of Variation 14.9 % (11.5-14.5); Red Blood Count 3.66 M/uL (4.2-5.4); White Blood Count 15.52 K/uL (4.8-10.8)
[2021-05-25 07:57] LABS: Albumin Level 2.9 gm/dl (3.4-5.0); BUN Creatinine Ratio 42.9 (10-20); Bilirubin,Total 0.5 mg/dl (0.2-1.0); C Reactive Protein 16.66 mg/dl (0-0.5); Calcium 8.4 mg/dl (8.5-10.1); Creatinine Clr Calc Pharmacy 57.7 ml/min; Est GFR (African American) 94.8 ml/min; Est GFR (Non-African American) 81.8 ml/min; Magnesium 1.9 mg/dl (1.7-2.4); Phosphorus 2.2 mg/dl (2.5-4.9); Potassium 3.9 mmol/L (3.5-5.1); Total Protein 5.9 gm/dl (6.0-8.3)
[2021-05-25] MEDS: PANTOprazole 40 MG in SYRINGE 0 ML IV SCH (08:52)
[2021-05-25] MEDS: CALCIUM 600MG + VIT D 400 IU TAB PO SCH (08:53)
[2021-05-25] MEDS: lisinopril 5 MG TAB PO SCH (08:53)
[2021-05-25] MEDS: METOPROLOL SUCC 50MG EXT REL TAB PO SCH (08:53)
[2021-05-25] MEDS: FOLIC ACID 1 MG TAB PO SCH (08:53)
[2021-05-25] MEDS: CLOPIDOGREL BISULFATE 75 MG TAB PO SCH (08:53)
[2021-05-25] MEDS: predniSONE 20 MG TAB PO SCH (08:53)
[2021-05-25] MEDS: APIXABAN 5 MG TABLET PO SCH (08:53)
[2021-05-25] MEDS: dilTIAZem HCL 120 MG CAPCR PO SCH (08:53)
[2021-05-25] MEDS: ROSUVASTATIN CALCIUM 5 MG TAB PO SCH (08:53)
[2021-05-25] MEDS: POTASSIUM CHLORIDE CRTAB 20 MEQ TABCR PO SCH (08:55)
[2021-05-25] MEDS ORDERED: MAGNESIUM SULFATE / D5W 1 GM/100 ML BAG IV ONE (09:15)
--- NOTE | 2021-05-25 09:29 | XRay Report ---
XR chest 1V portable CLINICAL HISTORY: f/u [facility] TECHNIQUE: Single frontal radiograph of the chest was obtained. Comparison: Comparison is made to chest one view 05/23/2021 FINDINGS: No lines and tubes are seen. Cardiomegaly is noted. Right upper lobe airspace opacity is again seen. There is likely a trace right pleural effusion. IMPRESSION: Interval stability of right upper lobe airspace opacity. Stable trace right pleural effusion. ACT 112: Negative or not required by law. Electronically signed by: Pk Cross M.D. 05/25/2021 9:28 AM
[2021-05-25] MEDS: POT PHOSPHATE MONOBASIC W/ SOD TAB PO SCH ×3 (09:56→16:31)
[2021-05-25] MEDS: METOPROLOL TARTRATE 1 MG/ML VIAL IV PRN (11:08)
[2021-05-25] MEDS ORDERED: dilTIAZem HCL 30 MG TAB PO ONE ×2 (12:06→20:40)
--- NOTE | 2021-05-25 12:26 | Hospitalist Progress Note ---
Date of Service May 25, 2021 Assessment & Plan (1) Sepsis: Plan: Presented with fevers, leukocytosis, tachycardia, and source of infection being both pneumonia and UTI Lactate negative, procalcitonin elevated on admission Chest x-ray with right upper lobe pneumonia Persists with evidence of hypovolemia with tachycardia, metabolic acidosis, hyponatremia, and elevated BUN. Blood pressures are stable Covid-19 and influenza A/B both negative CT abdomen/pelvis with evidence of duodenitis, bilateral renal stones but no ureterolithiasis, no other evidence of infection This is in the setting of immune suppression with a history of rheumatoid arthritis on methotrexate, chronic prednisone, and etanercept Leukocytosis was slightly improved, but now up to 15 due to steroid burst Still feels generally very weak, no fever since arrival, poor appetite, some cough now Received total of 4L crystalloid fluid in first 24 hrs Ur cx with Klebsiella,pansensitive BCxs-NGTD CRP 16 Procal 0.9--> trending down to 0.8 Repeat CXR with RUL PNA and small pl effusion, seems a bit more "fluffed out" after IVF hydration -Continue antibiotic coverage for community-acquired pneumonia and UTI with ceftriaxone and azithromycin-decrease dose to 250mg -continue stress dose steroids with prednisone 40 mg daily for now -Follow blood cultures, sputum culture if can produce -Follow CBC, CMP, CRP, procalcitonin, magnesium, phosphorus in the morning -If condition not improving, consider broadening antibiotic coverage given immune suppression, however does seem a bit better overall (2) Pneumonia: Plan: As above Not hypoxic Follow chest x-ray periodically Continue antibiotics and follow cultures (3) Urinary tract infection: Plan: As above, abnormal UA although without any urinary symptoms urine culture with Klebsiella pansens Continue ceftriaxone (4) Permanent atrial fibrillation: Plan: Rapid afib persists, likely secondary to sepsis and hypovolemia Patient managed by Dr. Sams (yearly visits). -Hydrated with crystalloid as above for volume resuscitation -continues on usual home meds, BP stable -add on po diltiazem 30mg x 1 now, reassess to possibly increase AM dose to 180mg for tomorrow -Continue to monitor on telemetry -Give IV Lopressor prn HR>120 -Continue home regimen of diltiazem 120 mg every morning, Toprol 100 mg every morning, Eliquis 5 mg twice daily. -keep Mag>2.0 and K> 4.0-replace today (5) Duodenitis: Plan: Noted on CT abdomen/pelvis She does have nausea but no vomiting, no melena or hematemesis Could certainly have peptic ulcer disease given long history of chronic prednisone -continue Protonix 40 mg IV twice daily given ongoing nausea Monitor for any evidence of GI bleeding No need for GI consultation or endoscopy at this point (6) Metabolic acidosis: Plan: As above, lactate negative, likely secondary to dehydration Gave volume resuscitation as above and now HCO3 up to 20 Follow BMP (7) Hyponatremia: Plan: Likely secondary to dehydration, possibly some SIADH from PNA - sodium mildly low at 133 and stable from yesterday received 4L total crystalloid Follow BMP (8) Osteoporosis, unspecified: Plan: hold Home calcium carbonate-vitamin D capsule BID while on neutra-phos (9) Chronic anticoagulation: Plan: Continue Eliquis (10) Hypertension: Plan: Blood pressures are normal Continue home diltiazem, metoprolol, lisinopril (11) Cardiomyopathy: Plan: With a history of HFrEF now improved No evidence of volume overload at this time Continue home lisinopril, metoprolol Follow I's and O's, daily weights (12) Chronic steroid use: Plan: On prednisone 3 mg p.o. once daily for rheumatoid arthritis Giving stress of steroids with 40 mg of prednisone daily for now (13) Rheumatoid arthritis: Plan: Managed with methotrexate 10 mg, etanercept, chronic prednisone -Hold home methotrexate and Enbrel while acutely infected -Continue prednisone and giving stress dose steroids as above (14) Anxiety: Plan: Continue home lorazepam as needed (15) PAD (peripheral artery disease): Plan: With a history of angioplasty and stenting in bilateral legs with vascular surgery Continue Plavix, statin (16) Hypophosphatemia: Plan: replace with po neutra-phos follow level Plan: DVT prophylaxis-Eliquis Disposition-continued stay on medical floor telemetry Admission and Anticipated Discharge Date Admission Date: May 23, 2021 Subjective Still feels drained, low appetite. Feels a little more wheezy today with her breathing. Denies abd pain. Had a BM yesterday that was normal, no blood or black tarry stool Denies nausea, just has no appetite Tele with rapid afib, rates 120s-160s at times Received IV lopressor this AM Review of Systems Review of Systems: All systems reviewed & are unremarkable except as noted in HPI & below Physical Exam Constitutional: WD/WN, vitals as above Eyes: + anicteric sclerae Neck: trachea midline, no thyromegaly Respiratory: normal respiratory effort; no cough and not tachypneic Auscultation: + crackles (At right middle and upper lung manzano); no rhonchi and no wheezes Cardiovascular: Rate/Rhythm: + tachycardic and + irregularly irregular He art Sounds: no murmur Extremities: no edema Chest (Breasts): Chest: normal inspection of chest Gastrointestinal (Abdomen): normal bowel sounds, soft, nontender, no hepatosplenomegaly Musculoskeletal: Extremities: extremities normal to inspection; no cyanosis and no clubbing Skin: no rashes, warm and dry Neurologic: moves all extremities and awake; no focal motor deficits Psychiatric: A+Ox3, euthymic affect Lymphatic: no lymphedema Results & Data Results & Data ([facility]) Vital Signs (Past 12 Hours) Vital Signs Temp Pulse Pulse Resp BP BP BP 05/25/21 11:46 36.6 C 64 18 116/69 05/25/21 11:31 108 H 119/85 05/25/21 11:08 122 H 118/73 05/25/21 11:06 36.4 C L 122 H 16 118/73 05/25/21 07:54 36.4 C L 103 H 20 119/80 05/25/21 07:23 107 H 05/25/21 03:16 36.4 C L 125 H 18 132/84 Pulse Ox 05/25/21 11:46 95 05/25/21 11:31 05/25/21 11:08 05/25/21 11:06 94 05/25/21 07:54 95 05/25/21 07:23 05/25/21 03:16 94 Laboratory Results 05/25/21 05/25/21 05/25/21 Range/Units 06:32 06:32 06:32 WBC 15.52 H (4.8-10.8) K/uL RBC 3.66 L (4.2-5.4) M/uL Hgb 12.0 (12.0-16.0) g/dL Hct 35.7 L (37-47) % MCV 97.5 (80-100) fL MCH 32.8 (25-34) pg MCHC 33.6 (32-36) g/dL RDW Std Deviation 53.0 H (36.4-46.3) fL RDW Coeff of Libra 14.9 H (11.5-14.5) % Plt Count 264 (130-400) K/uL MPV 10.1 (7.4-10.4) fL Immature Gran % (Auto) 0.3 % Neut % (Auto) 78.4 % Lymph % (Auto) 11.3 % [place] % (Auto) 9.9 % Eos % (Auto) 0.0 % Baso % (Auto) 0.1 % Neut # (Auto) 12.17 H (1.4-6.5) K/uL Lymph # (Auto) 1.75 (1.2-3.4) K/uL [place] # (Auto) 1.54 H (0.11-0.59) K/uL Eos # (Auto) 0.00 (0-0.5) K/uL Baso # (Auto) 0.01 (0-0.2) K/uL Immature Gran # (Auto) 0.05 H (0.00-0.02) K/uL Sodium 133 L (136-145) mmol/L Potassium 3.9 (3.5-5.1) mmol/L Chloride 104 (98-107) mmol/L Carbon Dioxide 20 L (21-32) mmol/L Anion Gap 9 (3-11) BUN 30 H (6-23) mg/dl Creatinine 0.70 (0.6-1.2) mg/dl Est Cr Clr Drug Dosing 57.7 ml/min Est GFR ( Amer) 94.8 ml/min Est GFR (Non-Af Amer) 81.8 ml/min BUN/Creatinine Ratio 42.9 H (10-20) Glucose 165 H (70-99(Fasting)) mg/dl Calcium 8.4 L (8.5-10.1) mg/dl Phosphorus 2.2 L D (2.5-4.9) mg/dl Magnesium 1.9 (1.7-2.4) mg/dl Total Bilirubin 0.5 (0.2-1.0) mg/dl AST 24 (13-39) U/L ALT 17 (7-52) U/L Alkaline Phosphatase 92 (34-104) U/L C-Reactive Protein 16.66 H (0-0.5) mg/dl Total Protein 5.9 L (6.0-8.3) gm/dl Albumin 2.9 L (3.4-5.0) gm/dl Globulin 3.0 (2.5-4.0) gm/dl Albumin/Globulin Ratio 1.0 (0.9-2) Procalcitonin 0.82 H (0-0.5) ng/ml Ur cx Klebsiella-pansensitive BCxs-NGTD PG Care Time/CCT Total # of Minutes Spent Total Time Spent with Patient: Total time spent is greater than 50% in coordination of care (as documented) at patient's floor/unit and/or counseling patient: Coding Level of Care Code 10439 Subseq Hosp Care Lvl 3 Diagnoses Sepsis A41.9 Pneumonia J18.9 Laterality: right Lung location: upper lobe of lung Pneumonia type: due to unspecified organism Urinary tract infection N39.0 Hematuria presence: without hematuria Urinary tract infection type: site unspecified Permanent atrial fibrillation I48.21 Duodenitis K29.80 Metabolic acidosis E87.2 Hyponatremia E87.1 Osteoporosis, unspecified M81.0 Osteoporosis type: age-related Presence of current pathological fracture: without current pathological fracture Chronic anticoagulation Z79.01 Hypertension I10 Hypertension type: essential hypertension Cardiomyopathy I42.9 Cardiomyopathy type: unspecified Chronic steroid use Rheumatoid arthritis M05.79 Rheumatoid arthritis location: multiple sites Rheumatoid factor presence: with rheumatoid factor Anxiety F41.9 PAD (peripheral artery disease) I73.9 Hypophosphatemia E83.39 (1) Pneumonia Laterality: right Lung location: upper lobe of lung Pneumonia type: due to unspecified organism Qualified Code(s): J18.9 - Pneumonia, unspecified organism (2) Urinary tract infection Hematuria presence: without hematuria Urinary tract infection type: site unspecified Qualified Code(s): N39.0 - Urinary tract infection, site not specified (3) Osteoporosis, unspecified Osteoporosis type: age-related Presence of current pathological fracture: without current pathological fracture Qualified Code(s): M81.0 - Age-related osteoporosis without current pathological fracture (4) Hypertension Hypertension type: essential hypertension Qualified Code(s): I10 - Essential (primary) hypertension (5) Cardiomyopathy Cardiomyopathy type: unspecified Qualified Code(s): I42.9 - Cardiomyopathy, unspecified (6) Rheumatoid arthritis Rheumatoid arthritis location: multiple sites Rheumatoid factor presence: with rheumatoid factor Qualified Code(s): M05.79 - Rheumatoid arthritis with rheumatoid factor of multiple sites without organ or systems involvement
[2021-05-25] MEDS: cefTRIAXone SODIUM 2,000 MG in DEXTROSE 5% 50 ML IV SCH (12:48)
[2021-05-25] MEDS ORDERED: AZITHROMYCIN 250 MG in DEXTROSE 5% 250 ML IV SCH (16:00)
[2021-05-25] MEDS ORDERED: RAPID SEQUENCE INDUCTION BAG ONE (21:28)
[2021-05-25] MEDS ORDERED: fentaNYL citrate 100 MCG/2 ML VIAL IV STA (21:30)
[2021-05-25] MEDS ORDERED: STAT IV Infusion **Titration per Protocol STA ×2 (21:40→21:44)
[2021-05-25] MEDS ORDERED: MIDAZOLAM BOLUS FROM BAG IV PRN (21:44)
[2021-05-25] MEDS ORDERED: MIDAZOLAM HCL 125 MG/250 ML BAG IV SCH (21:45)
[2021-05-25] MEDS ORDERED: NOREPINEPHRINE/D5W 8 MG/508 ML BAG IV SCH (21:45)
[2021-05-25] MEDS ORDERED: fentaNYL citrate 2,500 MCG/250 ML BAG IV SCH (21:45)
[2021-05-25 21:57] LABS: Hematocrit (blood only) 34.8 % (37-47); Hemoglobin 11.4 g/dL (12.0-16.0); Mean Corpuscular Hemoglobin 32.2 pg (25-34); Mean Corpuscular Volume 98.3 fL (80-100); Mean Platelet Volume 10.1 fL (7.4-10.4); Platelet Count 269 K/uL (130-400); RDW Coefficient of Variation 14.8 % (11.5-14.5); RDW Standard Deviation 53.6 fL (36.4-46.3); Red Blood Count 3.54 M/uL (4.2-5.4); White Blood Count 12.74 K/uL (4.8-10.8)
--- NOTE | 2021-05-25 21:58 | Communication Note ---
Date of Service: May 25, [address]- NAVEEN PUGH Arrived to patient room for CODE BLUE. CPR was in progress and Ventilation was given via BVM. Defibrilator was connected noting the patient was in VFIB. Shock was given and CPR was resumed. 1 mg Epinepherine given and circulated with CPR for 2 minutes. Upon recheck the patient had a perfusable rythm of afib on the monitor with HR 160s and palpable pulse. Patient was intubated by GERRY SHARIF with DR. ANGELICA THORPE. Patient was easily bagged with bilateral breath sounds, and caliometric change on ETCO2. ECG was obtained without any dynamic ST changes noted. Patient was sedated with Fentanyl and Versed, transitioned to transport vent with adequate ventilation delivered and returned, BP stable with pulse and transported to ICU for post resuscitation care. Family was updated by staff: DR. Turk. Eduin LOYD [facility] NANCY Supervision note: I have personally seen and examined the patient and discussed and verified the jones points of the history and physical along with the plan with NANCY Loyd with the following exceptions and/or additions: I was present for the NAVEEN PUGH and agree with above report. Discussed care with pt's son and daughter on phone and in person after they arrived to the hospital.
[2021-05-25 22:05] LABS: INR 1.3 (0.9-1.1); Prothrombin Time 12.7 Seconds (9.0-12.0)
--- NOTE | 2021-05-25 22:11 | XRay Report ---
XR chest 1V portable at 9:53 PM CLINICAL HISTORY: Status post intubation. Follow-up right upper lobe opacity. COMPARISON STUDY: 05/25/2021 at 6:59 AM TECHNIQUE: 1 view of the chest FINDINGS: Single frontal view of the chest demonstrates the heart to again be enlarged. Endotracheal tube is in place is tip approximately 2.4 cm above the rah. Right upper lobe lung opacity is again seen. The re has been interval development of left basilar atelectasis. The remainder of the lungs are clear. T here is minimal blunting of left costophrenic angle now seen. There is no evidence for vascular conge stion. There is no acute osseous pathology. IMPRESSION: 1. Status post intubation. 2. Right upper lobe opacity, essentially unchanged. 3. Interval development of left basilar atelectasis and evidence for small left pleural effusion. ACT 112: Negative or not required by law. Electronically signed by: Bobby Myles M.D. 05/25/2021 10:10 PM
[2021-05-25 22:18] LABS: Phosphorus 4.4 mg/dl (2.5-4.9)
[2021-05-25] MEDS ORDERED: ICU PROTOCOL FOR HYPERGLYCEMIA PRN (22:22)
--- NOTE | 2021-05-25 22:24 | Procedure Note ---
Procedure Note Date of Service May 25, 2021 Note INTUBATION PROCEDURE NOTE: Provider: NANCY Redmond Attending: Dr. Giraldo Patient was intubated following CODE BLUE for V. fib arrest and unresponsive following ROSC. Sedative agent used: None Paralysis agent used: None Emergent consent was implied given patients rapidly declining clinical status and need for airway protection. The patient was prepared in the appropriate fashion. Patient was unresponsive and no sedation was required for intubation. The patient was easily ventilated using [id number] to achieve adequate oxygenation. A 7.5 Turkmen endotracheal tube was placed with use of Gluidoscope at 23 cm at the lip. Grade 1 view was established and ET tube passed through the cords with ease. The stylette was removed and balloon was inflated with 10mL of air. Appropriate Colorimetric change was appreciated. Bilateral breath sounds were heard without air sounds in the abdomen. Post Intubation Chest X-ray confirms placement without pneumothorax. Patient tolerated the procedure well and there were no immediate complications. Coding CPT Codes Resuscitation - Resuscitation: 48573 Endotracheal Intubation, emergency ([id number]) [facility] Procedure Codes (Charges) Resuscitation Resuscitation: 31348 Endotracheal Intubation, emergency
[2021-05-25] MEDS ORDERED: CALCIUM GLUCONATE 10% 2,000 MG in DEXTROSE 5% 50 ML IV ONE (22:25)
[2021-05-25] MEDS ORDERED: STAT IV STA (22:25)
[2021-05-25 22:32] LABS: BUN Creatinine Ratio 35.2 (10-20); Calcium 7.7 mg/dl (8.5-10.1); Creatinine Clr Calc Pharmacy 45.9 ml/min; Est GFR (African American) 71.9 ml/min; Est GFR (Non-African American) 62.1 ml/min; Magnesium 2.2 mg/dl (1.7-2.4); Mean Corpuscular Hgb Conc 32.8 g/dL (32-36); Potassium 3.7 mmol/L (3.5-5.1)
--- NOTE | 2021-05-25 22:35 | CT Scan Report ---
CT head/brain wo con CLINICAL HISTORY: AMS . Patient on ventilator COMPARISON STUDY: No previous studies for comparison. CT DOSE: 749.40 mGy.cm TECHNIQUE: Standard CT of the Brain was performed without IV contrast. A dose lowering technique was utilized adhering to the principles of ALARA. FINDINGS: Extraaxial space: There is no evidence for subdural hematoma. There are no extra-axial fluid collecti ons. Ventricles and cisterns: The ventricles are normal in size and configuration. There is no evidence f or midline shift or mass effect. Parenchyma: There is no subarachnoid or intraparenchymal hemorrhage. There is no evidence for an acu te infarct or cerebral edema. There is homogeneous attenuation of the brain parenchyma. There are no gross mass lesions. Osseous structures: There is no evidence for an acute fracture. The visualized paranasal sinuses are clear. The mastoid air cells are clear bilaterally. Soft tissues: There is no evidence for focal soft tissue swelling. IMPRESSION: No acute intracerebral pathology. ACT 112: Negative or not required by law. Electronically signed by: Bobby Myels M.D. 05/25/2021 10:33 PM
--- NOTE | 2021-05-25 22:35 | Critical Care Consultation ---
Date of Consultation May 25, 2021 Assessment & Plan (1) Cardiac arrest: Reason Critically Ill: 80-year-old female with history of A. fib (on Eliquis), CHF, RA, PAD who presents to the ICU following cardiac arrest with ventricular fibrillation and unresponsive with suspected anoxic injury following ROSC. Currently in cardiogenic shock requiring vasopressor support and hypoxic respiratory failure requiring mechanical ventilation. Per family's wishes patient's CODE STATUS changed to DNR with no escalation of care and will continue with supportive care overnight with plan to reassess and possible transition to comfort measures tomorrow. Neuro - Anoxic brain injury: Patient unresponsive following cardiac arrest. Family declined therapeutic hypothermia and will continue with supportive care. -CT head negative for acute intracranial finding Cardiac - Cardiac arrestpatient with ventricular fibrillation arrest. Received defibrillation x1 and epi x1 during code before ROSC was achieved. -Unsure of etiology at this time as patient's QTC on EKG 430, no severe electrolyte abnormalities, no ST elevation and troponin unremarkable. -Last echo 06/09/2018 with EF 50 to 55%, no valvular disease. -Rhythm converted to A. fib which is patient's underlying rhythm at baseline. We will hold apixaban for now -Hold antihypertensives -Continue Levophed to maintain maps greater than 65 for cardiogenic shock. We will hold on a line and central line as patient is no escalation of care. -At this time family uninterested in procedures such as cardiac catheterization. -Calcium and potassium repleted. Will maximize electrolyte -Continue with supportive care and continuous monitoring on telemetry Respiratory - Acute hypoxic respiratory failurelikely secondary to pulmonary contusion/pulmonary edema following cardiac arrest and chest compressions -She has blood-tinged frothy sputum in her ET tube. -Chest x-ray without pneumothorax. Infiltrate in the right upper lobe unchanged. -Continue treatment for underlying pneumonia with broad-spectrum antibiotics. See ID below -Continue support with mechanical ventilation and wean as tolerated GI - N.p.o. RENAL/LYTES - Creatinine within normal limits, monitor electrolytes and replete as indicated - Foleystrict I's and O's ENDO - No history of diabetes or thyroid disease ICU hyperglycemic protocol RAcontinue prednisone, hold methotrexate for now HEME - H&H stable, monitor routine CBC ID - Sepsis?Patient with Klebsiella UTI and suspected pneumonia with right upper lobe infiltrate -We will hold on azithromycin as this is QTC prolonging following code. -Continue with ceftriaxone LINES/IV ACCESS - Peripheral IVs DVT PROPHYLAXIS - SCDs, patient on apixaban I have personally spent 70 minutes of critical care time in the direct management of this patient. This is a life/limb threatening event. This includes time spent evaluating patient, direct bedside care, chart review, placing orders, interpretation of diagnostic studies, discussion with consultants, patient, and family members, as well as other required patient management activities. This time is exclusive of all separately billable procedures, and teaching time and separate from and in addition to any other critical care service time. Thank you for allowing us to participate in the care of this patient. Please refer to my attending physician's documentation for any further recommendations. (2) PAD (peripheral artery disease): (3) Rheumatoid arthritis: (4) Chronic steroid use: (5) Sepsis: (6) Systolic CHF: (7) Atrial fibrillation with rapid ventricular response: (8) Urinary tract infection: (9) Pneumonia: (10) Ventricular fibrillation: (11) Respiratory failure with hypoxia: (12) Cardiogenic shock: (13) Anoxic brain injury: History of Present Illness Attending Physician: Leida Turk MD History of Present Illness Patient 80-year-old female with history of atrial fibrillation (on Eliquis), diastolic heart failure, RA (on MTX and prednisone), and osteoporosis. Patient was admitted 2 days ago and undergoing treatment for pneumonia and urinary tract infection. She was admitted to [facility] telemetry where she was undergoing treatment broad-spectrum antibiotics azithromycin and Rocephin. This evening patient was going to the restroom and had just gotten back to bed and was in her previous state of health. RN saw the patient go into ventricular dysrhythmia on the monitor and patient was unarousable upon entering the room. CODE BLUE was called and chest compressions were started approximately 1 minute following the event. Patient received chest compressions, defibrillation x1, and epinephrine x1 and ROSC was achieved approximately 8 minutes into code. Following ROSC patient was attempting to initiate breaths but was not protecting her airway and was not following commands. She was emergently intubated. EKG showed atrial fibrillation with RVR without ST elevation or depressions and QTC was 430. CT head negative for acute intracranial abnormalities. She was transferred to the ICU and patient's condition was discussed at the bedside with her son and bentley pineda. It is likely she has sustained anoxic injury. Following CPR she is now hypotensive and hypoxic. She is currently requiring vasopressor support. Therapeutic hypothermia was offered, however patient's family states that it is unlikely that she would want aggressive measures. CODE STATUS has been changed to DNR/DNI and she is now no escalation of care. Per family's wishes, we will not proceed with further interventions/procedures. Plan to reevaluate patient's condition in the a.m. with possible transfer to comfort measures. Allergies Allergy/AdvReac Type Severity Reaction Status Date / Time morphine AdvReac Intermediate NAUSEA Verified 05/23/21 12:27 Home Medications Medication Instructions Recorded Confirmed Type potassium chloride 20 mEq 20 meq PO QAM 04/19/18 05/23/21 History tablet,extended release (K-Tab) etanercept 50 mg/mL (1 mL) 50 mg SUBCUT WK #4 ml 03/17/20 05/23/21 Rx subcutaneous pen injector (Enbrel SureClick) apixaban 5 mg tablet (Eliquis) 5 mg PO BID #60 tab 07/15/20 05/23/21 Rx metoprolol succinate 100 mg 100 mg PO QAM #90 tab 09/02/20 05/23/21 Rx tablet,extended release 24 hr (Toprol XL) prednisone 1 mg tablet 3 mg PO .COMPLEX #300 tab 09/30/20 05/23/21 Rx leucovorin calcium 5 mg tablet 10 mg PO WK #28 tab 12/22/20 05/23/21 Rx lorazepam 0.5 mg tablet 0.5 mg PO HS PRN #30 tab 02/16/21 05/23/21 Rx clopidogrel 75 mg tablet (Plavix) 75 mg PO QAM 05/23/21 05/23/21 History diltiazem HCl 120 mg 120 mg PO QAM 05/23/21 05/23/21 History capsule,extended release 24 hr lisinopril 2.5 mg tablet 5 mg PO QAM 05/23/21 05/23/21 History methotrexate sodium 2.5 mg tablet 10 mg PO WK 05/23/21 05/23/21 History rosuvastatin 5 mg tablet 5 mg PO QAM 05/23/21 05/23/21 History folic acid 1 mg tablet 1 mg PO DAILY 02/09/22 02/09/22 History Patient History Medical History (Updated 05/26/21 @ 09:59 by Leida Turk MD) Atrial fibrillation Atrial fibrillation with RVR Brain aneurysm under surveillance by PCP (stable x years) Bronchitis (~03/23/19) Chronic steroid use GERD (gastroesophageal reflux disease) Hyperlipidemia Hypertension Kidney stones Osteoporosis, unspecified PAD (peripheral artery disease) Pneumonia Rheumatoid arthritis Systolic CHF Surgical History H/O foot surgery History of lithotripsy History of thoracotomy FOR COLLAPSED LUNG - HAD WEDGE RESECTION LOWER RIGHT Hx of cataract extraction Family History Mother Arthritis Father Congestive heart failure (CHF) Aunt Breast cancer Sister Stroke Other Thoracic aortic aneurysm Denies family history of Ovarian cancer Prostate cancer Diabetes Myocardial infarction Lung cancer Colorectal cancer Social History Smoking Status: Former smoker Age Started Using Tobacco: 16; Age Quit Using Tobacco: 45; packs per day: 0.5; Years Smoked: 29; Number of Years Since Quit: 33; Second Hand Exposure: No; Hx Alcohol Use: No Hx Substance Use: No Preferred Language: Tajik Communication Ability: Effective Visual Impairment: Limited Hearing Ability: Normal Steel Hanger Required: No Beliefs That Will Affect Care: None marital status: / Current Living Situation: Alone current occupational status: retired How many Children do You have: 5 Feels Safe at Home: Yes Childhood Exposure to Second-Hand Smoke: Yes (dad did off and on ) caffeine: Yes (coffee) Dental Care, Regularly: No Physical Activity Frequency: Daily Physical Activity Frequency Comment: walks daily Seatbelt Use: always Sunscreen Use: Yes Assistive Devices: Glasses and Walker Review of Systems Review of Systems: All systems reviewed & are unremarkable except as noted in HPI & below Physical Exam Constitutional: + frail appearing and + mechanically ventilated Eyes: PERRL, conjunctivae normal, anicteric sclerae ENMT: external ear and nose normal, oropharynx normal Neck: trachea midline, no thyromegaly Respiratory: Symmetrical chest wall movement, coarse crackles auscultated bilaterally in all lung manzano, diminished in bases. Cardiovascular: Rate/Rhythm: + tachycardic and + irregularly irregular Vessels: + JVD Extremities: no edema Gastrointestinal (Abdomen): normal bowel sounds, soft, nontender, no hepatosplenomegaly Musculoskeletal: Unable to assess Skin: no rashes, warm and dry Neurologic: Obtunded, PERRLA. Does not follow commands. Cough gag corneal intact Genitourinary: Indwelling Villegas catheter present Results & Data Results & Data ([facility]) Vital Signs (Past 12 Hours) Vital Signs Temp Pulse Pulse Resp BP BP BP 05/25/21 21:30 16 05/25/21 19:05 36.4 C L 101 H 20 127/91 05/25/21 15:43 36.6 C 87 20 98/66 L 05/25/21 15:12 85 05/25/21 12:50 110 H 118/82 05/25/21 11:46 36.6 C 64 18 116/69 05/25/21 11:31 108 H 119/85 05/25/21 11:08 122 H 118/73 05/25/21 11:06 36.4 C L 122 H 16 118/73 Pulse Ox 05/25/21 21:30 87 L 05/25/21 19:05 94 05/25/21 15:43 93 05/25/21 15:12 05/25/21 12:50 05/25/21 11:46 95 05/25/21 11:31 05/25/21 11:08 05/25/21 11:06 94 Coding Level of Care Code Critical Care 1st 30-74 mins Diagnoses PAD (peripheral artery disease) I73.9 Rheumatoid arthritis M05.79 Rheumatoid arthritis location: multiple sites Rheumatoid factor presence: with rheumatoid factor Chronic steroid use Sepsis A41.9 Systolic CHF I50.20 Atrial fibrillation with rapid ventricular response I48.91 Urinary tract infection N39.0 Hematuria presence: without hematuria Urinary tract infection type: site unspecified Pneumonia J18.9 Laterality: right Lung location: upper lobe of lung Pneumonia type: due to unspecified organism Ventricular fibrillation I49.01 Cardiac arrest I46.9 Respiratory failure with hypoxia J96.91 Cardiogenic shock R57.0 Anoxic brain injury G93.1 (1) Urinary tract infection Hematuria presence: without hematuria Urinary tract infection type: site unspecified Qualified Code(s): N39.0 - Urinary tract infection, site not specified (2) Rheumatoid arthritis Rheumatoid arthritis location: multiple sites Rheumatoid factor presence: with rheumatoid factor Qualified Code(s): M05.79 - Rheumatoid arthritis with rheumatoid factor of multiple sites without organ or systems involvement (3) Pneumonia Laterality: right Lung location: upper lobe of lung Pneumonia type: due to unspecified organism Qualified Code(s): J18.9 - Pneumonia, unspecified organism
[2021-05-25] MEDS: POTASSIUM CHLORIDE / WTR 10 MEQ/100 ML PLCT IV SCH (23:13)
[2021-05-26] MEDS: POTASSIUM CHLORIDE / WTR 10 MEQ/100 ML PLCT IV SCH (00:19)
[2021-05-26 00:21] LABS: iSTAT Allen Test Pass; iSTAT Art Bld Gas pCO2 Correct 28 mmHg (35-46); iSTAT Art Bld Gas pH Corrected 7.382 (7.35-7.45); iSTAT Arterial Blood Gas HCO3 16 meg/L (19-24); iSTAT Arterial Blood Gas pCO2 28 mmHg (35-46); iSTAT Arterial Blood Gas pH 7.38 (7.35-7.45); iSTAT Arterial Blood Gas pO2 51 mmHg (80-95); iSTAT Arterial Blood Gas pO2 C 51; iSTAT Carbon Dioxide 17 mmol/L (24-31); iSTAT FiO2 100 %; iSTAT Hematocrit 30 % (37-47); iSTAT Hemoglobin 10.2 g/dl (12.0-16.0); iSTAT Potassium 3.5 mmol/L (3.3-5.0); iSTAT Site L Radial; iSTAT Sodium 135 mmol/L (135-144)
[2021-05-26] MEDS: PANTOprazole 40 MG in SYRINGE 0 ML IV SCH ×3 (00:30→21:10)
[2021-05-26 04:02] LABS: iSTAT Allen Test Pass; iSTAT Art Bld Gas pCO2 Correct 32 mmHg (35-46); iSTAT Art Bld Gas pH Corrected 7.391 (7.35-7.45); iSTAT Arterial Blood Gas HCO3 19 meg/L (19-24); iSTAT Arterial Blood Gas pCO2 31 mmHg (35-46); iSTAT Arterial Blood Gas pO2 82 mmHg (80-95); iSTAT Arterial Blood Gas pO2 C 84; iSTAT Carbon Dioxide 20 mmol/L (24-31); iSTAT FiO2 50 %; iSTAT Hematocrit 33 % (37-47); iSTAT Hemoglobin 11.2 g/dl (12.0-16.0); iSTAT Potassium 4.5 mmol/L (3.3-5.0); iSTAT Site R Radial; iSTAT Sodium 131 mmol/L (135-144)
[2021-05-26 05:55] LABS: Basophils # (auto) 0.03 K/uL (0-0.2); Basophils % (auto) 0.2 %; Eosinophils # (auto) 0.02 K/uL (0-0.5); Eosinophils % (auto) 0.1 %; Hematocrit (blood only) 33.8 % (37-47); Hemoglobin 11.3 g/dL (12.0-16.0); Immature Granulocytes # (auto) 0.35 K/uL (0.00-0.02); Immature Granulocytes % (auto) 2.1 %; Lymphocytes # (auto) 2.27 K/uL (1.2-3.4); Lymphocytes % (auto) 13.5 %; Mean Corpuscular Hemoglobin 32.7 pg (25-34); Mean Corpuscular Hgb Conc 33.4 g/dL (32-36); Mean Corpuscular Volume 97.7 fL (80-100); Monocytes # (auto) 1.48 K/uL (0.11-0.59); Monocytes % (auto) 8.8 %; Neutrophils # (auto) 12.69 K/uL (1.4-6.5); Neutrophils % (auto) 75.3 %; Platelet Count 280 K/uL (130-400); RDW Standard Deviation 53.5 fL (36.4-46.3); Red Blood Count 3.46 M/uL (4.2-5.4); White Blood Count 16.84 K/uL (4.8-10.8)
[2021-05-26 06:22] LABS: BUN Creatinine Ratio 35.6 (10-20); C Reactive Protein 11.97 mg/dl (0-0.5); Calcium 8.2 mg/dl (8.5-10.1); Est GFR (African American) 60.9 ml/min; Est GFR (Non-African American) 52.5 ml/min; Phosphorus 5.1 mg/dl (2.5-4.9); Potassium 4.2 mmol/L (3.5-5.1)
[2021-05-26 06:23] LABS: Troponin I 1.56 ng/ml (0-0.04)
[2021-05-26] MEDS ORDERED: NORMOSOL-R 500 ML IV ONE (07:58)
[2021-05-26] MEDS: METOPROLOL TARTRATE 1 MG/ML VIAL IV PRN (08:00)
[2021-05-26] MEDS ORDERED: 0.2 MICRON FILTER SET 1 EA IV ONE (08:07)
[2021-05-26] MEDS ORDERED: AMIODARONE IV BOLUS & DRIP IV STA (08:07)
[2021-05-26] MEDS ORDERED: STAT IV Infusion **Titration per Protocol STA (08:07)
[2021-05-26] MEDS ORDERED: AMIODARONE / D5W 150 MG/100 ML BAG IV STA (08:07)
[2021-05-26] MEDS ORDERED: AMIODARONE / D5W 360 MG/200 ML BAG IV ONE (08:17)
--- NOTE | 2021-05-26 08:35 | XRay Report ---
XR chest 1V portable CLINICAL HISTORY: Resp failure. Follow-up right upper lobe opacity and left basilar atelectasis COMPARISON STUDY: 05/25/2021 TECHNIQUE: 1 view of the chest FINDINGS: Single frontal view of the chest demonstrates the heart size to again be enlarged. Compared to previo us examination, endotracheal tube is now only 1 cm above the rah. It should be retracted at least 2 cm. NG tube is again seen extending into the body of the stomach. Compared to previous study, there has been interval worsening of right upper lobe alveolar opacity re presenting the presence of pneumonia. Air bronchograms are present. There is interval improvement of left basilar atelectasis. The remainder the lungs are clear. Minimal blunting of left costophrenic an gle is present, again suspicious for small left pleural effusion. Is no evidence for right pleural ef fusion. There is no evidence for vascular congestion. There is no acute osseous pathology. IMPRESSION: 1. Tip of endotracheal tube only 1 cm above the rah. It should be retracted at least 2 cm. 2. Worsening alveolar opacity within the right upper lobe representing worsening right upper lobe pne umonia. 3. Decreased left basilar atelectasis. 4. There is again evidence for small left pleural effusion. ACT 112: Negative or not required by law. Electronically signed by: Bobby Myles M.D. 05/26/2021 8:34 AM
[2021-05-26] MEDS ORDERED: PERFLUTREN LIPID MICROSPHERE (DEFINITY) IV ONE (08:46)
[2021-05-26] MEDS ORDERED: dilTIAZem HCL 180 MG CAPCR PO SCH (09:00)
--- NOTE | 2021-05-26 10:00 | Hospitalist Progress Note ---
Date of Service May 26, 2021 Assessment & Plan (1) Cardiac arrest: Plan: Had V. fib arrest on the evening of 05/25 NAVEEN PUGH was called and CPR was started Received 1 shock and 1 mg of epi and achieved ROSC ECG afterwards without evidence of acute MS Electrolytes stable, she had not been hypoxic prior Unclear cause Was intubated overnight on 05/25 and extubated on the morning of 05/26, was requiring Levophed while on sedation, but now weaned off Levophed With some residual cardiogenic shock-echocardiogram on 05/26 with LVEF 30-35%, wall motion abnormalities and global hypokinesis, mild RV dysfunction, pulmonary hypertension Appreciate cardiology consultation Remains in rapid atrial fibrillation now with improved rate control on amiodarone Cardiology recommends consideration for ICD prior to discharge, cannot completely rule out ischemic event but does not need urgent cardiac catheterization -Stable for downgrade out of ICU -Passed bedside swallow test-advanced diet to clear liquids, continue to advance as tolerated (2) Ventricular fibrillation: Plan: As above (3) Cardiogenic shock: Plan: As above Now weaned off vasopressors Restart Toprol-XL when blood pressure can tolerate this Restart RUSSEL inhibitor when blood pressure can tolerate Urine output low on 05/26-was given 500 mL bolus of Normosol in the morning and 250 mL bolus of normal saline in the afternoon Monitor I's and O's, Villegas catheter in place (4) Respiratory failure with hypoxia: Plan: Secondary to cardiogenic shock and cardiac arrest, now extubated With atelectasis of left lower lobe and right upper lobe pneumonia -Continue treating for pneumonia as below -Encouraged incentive spirometry -Pain control as needed for rib fractures -Chest CT confirms right upper lobe pneumonia, no abscess or cavitary lesion -Continue supplemental O2 to keep pulse ox greater than 92%, wean off as tolerated (5) Elevated troponin: Plan: Troponin peaked at 1.5 after cardiac arrest This is secondary to cardiac contusion and also secondary to hypoperfusion No urgent need for cardiac catheterization (6) Sepsis: Plan: Presented with fevers, leukocytosis, tachycardia, and source of infection being both pneumonia and UTI Lactate negative, procalcitonin elevated on admission Chest x-ray and chest CT with right upper lobe pneumonia Initially with evidence of hypovolemia with tachycardia, metabolic acidosis, hyponatremia, and elevated BUN. Covid-19 and influenza A/B both negative CT abdomen/pelvis with evidence of duodenitis, bilateral renal stones but no ureterolithiasis, no other evidence of infection This is in the setting of immune suppression with a history of rheumatoid arthritis on methotrexate, chronic prednisone, and etanercept Leukocytosis was improving initially but now up secondary to cardiac arrest and stress dose steroids Ur cx with Klebsiella,pansensitive BCxs-NGTD CRP 16 and now trending downward Procal 0.9--> trending down to 0.8 Initially treated with ceftriaxone and azithromycin, but now broaden coverage to cefepime for gram-negative pneumonia coverage, and changed to doxycycline to avoid azithromycin while on amiodarone -continue stress dose steroids-change from prednisone 40 IV hydrocortisone until adequately taking p.o. -Follow blood cultures, sputum culture if can produce -Follow CBC, CMP, CRP, magnesium, phosphorus in the morning (7) Pneumonia: Plan: As above (8) Urinary tract infection: Plan: As above, abnormal UA although without any urinary symptoms urine culture with Klebsiella pansens Initially received ceftriaxone, and now on cefepime (9) Permanent atrial fibrillation: Plan: Rapid afib persisted for the first 2 days of admission-likely secondary to sepsis and hypovolemia Patient managed by Dr. Sams (yearly visits). -Hydrated with crystalloid as above for volume resuscitation -Was given occasional IV Lopressor prior to cardiac arrest -Now on amiodarone drip status post cardiac arrest and rates are improved in the low 100s Appreciate cardiology consultation -Plan to restart Toprol-XL when blood pressures stabilize off vasopressors -Restart home Eliquis this evening 5 mg p.o. twice daily-this was held after cardiac arrest due to blood in the ET tube from pulmonary contusion -Keep magnesium greater than 2 and potassium greater than 4.0 (10) Duodenitis: Plan: Noted on CT abdomen/pelvis from admission She initially had nausea but no vomiting, no melena or hematemesis Could certainly have peptic ulcer disease given long history of chronic prednisone -continue Protonix 40 mg IV twice daily given ongoing nausea Monitor for any evidence of GI bleeding No need for GI consultation or endoscopy at this point (11) Metabolic acidosis: Plan: As above, lactate was initially negative, likely secondary to dehydration Was given volume resuscitation and improved Lactate was then elevated later after cardiac arrest but improved Follow BMP (12) Hyponatremia: Plan: Likely secondary to hypovolemia initially, possibly some SIADH from PNA - sodium mildly low at 132 and stable from yesterday Received volume resuscitation initially Follow BMP (13) Osteoporosis, unspecified: Plan: hold Home calcium carbonate-vitamin D (14) Chronic anticoagulation: Plan: Continue Eliquis (15) Hypertension: Plan: Holding home diltiazem, metoprolol, and lisinopril for cardiogenic shock as above Restart metoprolol first as able to (16) Cardiomyopathy: Plan: With a history of HFrEF that had improved Now with worsening EF as above secondary to cardiac arrest and cardiogenic shock-LVEF now 30-35% Holding home lisinopril, metoprolol, but restart as able to Is still somewhat hypovolemic Follow I's and O's, daily weights (17) Chronic steroid use: Plan: On prednisone 3 mg p.o. once daily for rheumatoid arthritis Initially gave stress dose steroids with 40 mg of prednisone, but transition to IV hydrocortisone when critically ill -Plan to transition back to prednisone likely tomorrow and eventually taper back down to home dose of prednisone (18) Rheumatoid arthritis: Plan: Managed with methotrexate 10 mg, etanercept, chronic prednisone -Hold home methotrexate and Enbrel while acutely infected -Continue stress dose steroids as above (19) Anxiety: Plan: Continue home lorazepam as needed (20) PAD (peripheral artery disease): Plan: With a history of angioplasty and stenting in bilateral legs with vascular surgery Continue Plavix, but statin on hold for now in case of liver injury from cardiac arrest (21) Hypophosphatemia: Plan: replaced with po neutra-phos follow level Plan: DVT prophylaxis-Eliquis Disposition-downgrade out of ICU to PCU her care was discussed with her son, Jon Admission and Anticipated Discharge Date Admission Date: May 23, 2021 Subjective Pt had cardiac arrest last evening and was revived, intubated, transferred to ICU. Was on levophed overnight while on sedation but weaned off today when sedation turned off, extubated. SHe has some pain in her left back, but no chest pain despite chest compressions and rib fractures. Denies SOB, is weaned down to 2LNC. Denies nausea and tolerated clear liquids diet today Discussed her care with PULM and Cardiology Tele with Afib with rates in 100s-110s Review of Systems Review of Systems: All systems reviewed & are unremarkable except as noted in HPI & below denies sore throat, no abd pain Physical Exam Constitutional: WD/WN, vitals as above Eyes: + anicteric sclerae Neck: trachea midline, no thyromegaly Respiratory: normal respiratory effort; no cough and not tachypneic Auscultation: + crackles (At right middle and upper lung manzano); no rhonchi and no wheezes Cardiovascular: Rate/Rhythm: + tachycardic and + irregularly irregular Heart Sounds: no murmur Extremities: no edema Chest (Breasts): Chest: normal inspection of chest Gastrointestinal (Abdomen): normal bowel sounds, soft, nontender, no hepatosplenomegaly Musculoskeletal: Extremities: + extremities abnormal to inspection (ulnar deviation of finers bilat), no cyanosis and no clubbing Skin: no rashes, warm and dry Neurologic: moves all extremities and awake; no focal motor deficits Psychiatric: A+Ox3, euthymic affect Lymphatic: no lymphedema Results & Data Results & Data ([facility]) Vital Signs (Past 12 Hours) Vital Signs Temp Pulse Resp BP Pulse Ox 05/26/21 08:05 99 H 16 92 05/26/21 08:00 37.2 C 124 H 88/75 L 05/26/21 04:10 37.5 C 97 H 16 95 05/26/21 04:03 37.5 C 105 H 18 97/71 L 95 05/26/21 04:01 37.5 C 87 19 112/83 94 05/26/21 04:00 37.5 C 104 H 18 95 05/26/21 03:56 37.5 C 108 H 27 H 127/69 95 05/26/21 03:54 37.5 C 124 H 21 122/96 94 05/26/21 03:50 37.5 C 111 H 23 120/102 H 95 05/26/21 03:49 105 H 23 95 05/26/21 03:40 37.4 C 105 H 21 96 05/26/21 03:37 37.4 C 109 H 20 107/89 97 05/26/21 03:31 37.4 C 119 H 25 H 105/87 96 05/26/21 03:30 37.4 C 114 H 31 H 95 05/26/21 03:26 37.4 C 109 H 24 108/92 98 05/26/21 03:20 37.4 C 94 H 18 126/84 98 05/26/21 03:15 37.3 C 100 H 18 115/79 98 05/26/21 03:10 37.3 C 86 18 119/73 98 05/26/21 03:05 37.3 C 95 H 18 97/78 L 98 05/26/21 03:00 37.3 C 92 H 18 117/76 98 05/26/21 02:56 37.3 C 92 H 18 110/78 05/26/21 02:50 37.3 C 92 H 18 113/82 98 05/26/21 02:45 37.3 C 85 18 107/81 98 05/26/21 02:41 37.3 C 107 H 18 122/64 97 05/26/21 02:40 37.3 C 112 H 18 98 05/26/21 02:35 37.3 C 96 H 18 102/76 97 05/26/21 02:30 37.3 C 110 H 18 117/72 97 05/26/21 02:25 37.3 C 88 18 108/80 97 05/26/21 02:20 37.3 C 85 18 103/83 97 05/26/21 02:15 37.3 C 97 H 18 111/82 97 05/26/21 02:11 104/78 05/26/21 00:21 37.3 C 105 H 16 101/74 98 05/26/21 00:20 37.3 C 133 H 18 98 05/26/21 00:15 37.3 C 142 H 16 114/85 98 05/26/21 00:10 37.3 C 141 H 18 102/79 98 05/26/21 00:05 37.3 C 146 H 18 122/82 98 05/26/21 00:00 37.3 C 141 H 16 112/82 98 05/25/21 23:56 37.3 C 130 H 18 104/79 97 05/25/21 23:50 37.3 C 135 H 18 107/89 98 05/25/21 23:45 37.3 C 137 H 18 127/89 98 05/25/21 23:40 37.3 C 134 H 18 114/92 97 05/25/21 23:36 37.4 C 127 H 19 116/92 97 05/25/21 23:31 37.4 C 127 H 18 120/98 97 05/25/21 23:30 37.4 C 138 H 18 98 05/25/21 23:25 37.4 C 122 H 18 143/107 H 98 05/25/21 23:20 37.4 C 132 H 18 130/84 98 05/25/21 23:15 37.4 C 119 H 18 103/86 97 05/25/21 23:10 37.4 C 129 H 18 103/88 97 05/25/21 23:06 37.4 C 141 H 18 89/72 L 99 05/25/21 23:00 37.4 C 124 H 18 125/74 99 05/25/21 22:55 37.4 C 133 H 18 98/77 L 99 05/25/21 22:50 37.5 C 137 H 19 104/82 99 05/25/21 22:46 37.5 C 121 H 18 112/77 05/25/21 22:41 37.5 C 117 H 22 99/71 L 99 05/25/21 22:40 37.4 C 140 H 19 99 05/25/21 22:36 139 H 14 110/70 68 L 05/25/21 22:32 137 H 12 05/25/21 22:22 105 H 19 98 05/25/21 22:10 37.5 C 126 H 18 87/68 L 95 05/25/21 22:06 37.5 C 139 H 15 113/74 97 05/25/21 22:00 37.5 C 134 H 18 78/64 L 93 Laboratory Results 05/26/21 05/26/21 05/26/21 Range/Units 14:59 11:47 09:06 WBC (4.8-10.8) K/uL RBC (4.2-5.4) M/uL Hgb (12.0-16.0) g/dL POC Hgb (12.0-16.0) g/dl Hct (37-47) % POC Hct (37-47) % MCV (80-100) fL MCH (25-34) pg MCHC (32-36) g/dL RDW Std Deviation (36.4-46.3) fL RDW Coeff of Libra (11.5-14.5) % Plt Count (130-400) K/uL MPV (7.4-10.4) fL Immature Gran % (Auto) % Neut % (Auto) % Lymph % (Auto) % Armstrong % (Auto) % Eos % (Auto) % Baso % (Auto) % Neut # (Auto) (1.4-6.5) K/uL Lymph # (Auto) (1.2-3.4) K/uL Armstrong # (Auto) (0.11-0.59) K/uL Eos # (Auto) (0-0.5) K/uL Baso # (Auto) (0-0.2) K/uL Immature Gran # (Auto) (0.00-0.02) K/uL Sample Site POC pH (7.35-7.45) POC pCO2 (35-46) mmHg POC pO2 (80-95) mmHg POC HCO3 (19-24) sasha/L POC Total CO2 (24-31) mmol/L POC Base Excess (-9-1.8) sasha/L ABG pH (Temp Correct) (7.35-7.45) ABG pCO2 (Temp Corrct (35-46) mmHg POC ABG pO2 at Pt Temp POC ABG O2 Sat (90-95) % Dave Test O2 Delivery Device POC O2 Rate Minute Ventilation POC FiO2 % Tidal Volume PEEP POC Sodium (135-144) mmol/L Sodium (136-145) mmol/L POC Potassium (3.3-5.0) mmol/L Potassium (3.5-5.1) mmol/L Chloride (98-107) mmol/L Carbon Dioxide (21-32) mmol/L Anion Gap (3-11) BUN (6-23) mg/dl Creatinine (0.6-1.2) mg/dl Est Cr Clr Drug Dosing ml/min Est GFR ( Amer) ml/min Est GFR (Non-Af Amer) ml/min BUN/Creatinine Ratio (10-20) Glucose (70-99(Fasting)) mg/dl POC Glucose 178 H (70-99) mg/dl Lactate (0.4-2.0) mmol/L Calcium (8.5-10.1) mg/dl Ionized Calcium (1.12-1.32) mmol/L Phosphorus (2.5-4.9) mg/dl Magnesium (1.7-2.4) mg/dl Troponin I 0.75 H* 1.21 H* (0-0.04) ng/ml C-Reactive Protein (0-0.5) mg/dl Nasal Screen MRSA (PCR) (Negative) 05/26/21 05/26/21 05/26/21 Range/Units 05:40 05:40 05:40 WBC 16.84 H (4.8-10.8) K/uL RBC 3.46 L (4.2-5.4) M/uL Hgb 11.3 L (12.0-16.0) g/dL POC Hgb (12.0-16.0) g/dl Hct 33.8 L (37-47) % POC Hct (37-47) % MCV 97.7 (80-100) fL MCH 32.7 (25-34) pg MCHC 33.4 (32-36) g/dL RDW Std Deviation 53.5 H (36.4-46.3) fL RDW Coeff of Libra 15.0 H (11.5-14.5) % Plt Count 280 (130-400) K/uL MPV 10.0 (7.4-10.4) fL Immature Gran % (Auto) 2.1 % Neut % (Auto) 75.3 % Lymph % (Auto) 13.5 % Armstrong % (Auto) 8.8 % Eos % (Auto) 0.1 % Baso % (Auto) 0.2 % Neut # (Auto) 12.69 H (1.4-6.5) K/uL Lymph # (Auto) 2.27 (1.2-3.4) K/uL Armstrong # (Auto) 1.48 H (0.11-0.59) K/uL Eos # (Auto) 0.02 (0-0.5) K/uL Baso # (Auto) 0.03 (0-0.2) K/uL Immature Gran # (Auto) 0.35 H (0.00-0.02) K/uL Sample Site POC pH (7.35-7.45) POC pCO2 (35-46) mmHg POC pO2 (80-95) mmHg POC HCO3 (19-24) sasha/L POC Total CO2 (24-31) mmol/L POC Base Excess (-9-1.8) sasha/L ABG pH (Temp Correct) (7.35-7.45) ABG pCO2 (Temp Corrct (35-46) mmHg POC ABG pO2 at Pt Temp POC ABG O2 Sat (90-95) % Dave Test O2 Delivery Device POC O2 Rate Minute Ventilation POC FiO2 % Tidal Volume PEEP POC Sodium (135-144) mmol/L Sodium 132 L (136-145) mmol/L POC Potassium (3.3-5.0) mmol/L Potassium 4.2 (3.5-5.1) mmol/L Chloride 103 (98-107) mmol/L Carbon Dioxide 21 (21-32) mmol/L Anion Gap 8 (3-11) BUN 36 H (6-23) mg/dl Creatinine 1.01 (0.6-1.2) mg/dl Est Cr Clr Drug Dosing 40.0 ml/min Est GFR ( Amer) 60.9 ml/min Est GFR (Non-Af Amer) 52.5 ml/min BUN/Creatinine Ratio 35.6 H (10-20) Glucose 198 H (70-99(Fasting)) mg/dl POC Glucose (70-99) mg/dl Lactate 2.2 H* (0.4-2.0) mmol/L Calcium 8.2 L (8.5-10.1) mg/dl Ionized Calcium (1.12-1.32) mmol/L Phosphorus 5.1 H (2.5-4.9) mg/dl Magnesium 2.0 (1.7-2.4) mg/dl Troponin I 1.56 H* (0-0.04) ng/ml C-Reactive Protein 11.97 H (0-0.5) mg/dl Nasal Screen MRSA (PCR) (Negative) 05/26/21 05/25/21 05/25/21 Range/Units 03:38 23:05 22:00 WBC (4.8-10.8) K/uL RBC (4.2-5.4) M/uL Hgb (12.0-16.0) g/dL POC Hgb 11.2 L (12.0-16.0) g/dl Hct (37-47) % POC Hct 33 L (37-47) % MCV (80-100) fL MCH (25-34) pg MCHC (32-36) g/dL RDW Std Deviation (36.4-46.3) fL RDW Coeff of Libra (11.5-14.5) % Plt Count (130-400) K/uL MPV (7.4-10.4) fL Immature Gran % (Auto) % Neut % (Auto) % Lymph % (Auto) % Armstrong % (Auto) % Eos % (Auto) % Baso % (Auto) % Neut # (Auto) (1.4-6.5) K/uL Lymph # (Auto) (1.2-3.4) K/uL Armstrong # (Auto) (0.11-0.59) K/uL Eos # (Auto) (0-0.5) K/uL Baso # (Auto) (0-0.2) K/uL Immature Gran # (Auto) (0.00-0.02) K/uL Sample Site R Radial POC pH 7.40 (7.35-7.45) POC pCO2 31 L (35-46) mmHg POC pO2 82 (80-95) mmHg POC HCO3 19 (19-24) sasha/L POC Total CO2 20 L (24-31) mmol/L POC Base Excess -6.0 (-9-1.8) sasha/L ABG pH (Temp Correct) 7.391 (7.35-7.45) ABG pCO2 (Temp Corrct 32 L (35-46) mmHg POC ABG pO2 at Pt Temp 84 POC ABG O2 Sat 96.0 H (90-95) % Dave Test Pass O2 Delivery Device Ventilator POC O2 Rate 18 Minute Ventilation 9.1 POC FiO2 50 % Tidal Volume 350 PEEP 8 POC Sodium 131 L (135-144) mmol/L Sodium (136-145) mmol/L POC Potassium 4.5 (3.3-5.0) mmol/L Potassium (3.5-5.1) mmol/L Chloride (98-107) mmol/L Carbon Dioxide (21-32) mmol/L Anion Gap (3-11) BUN (6-23) mg/dl Creatinine (0.6-1.2) mg/dl Est Cr Clr Drug Dosing ml/min Est GFR ( Amer) ml/min Est GFR (Non-Af Amer) ml/min BUN/Creatinine Ratio (10-20) Glucose (70-99(Fasting)) mg/dl POC Glucose (70-99) mg/dl Lactate 3.0 H* (0.4-2.0) mmol/L Calcium (8.5-10.1) mg/dl Ionized Calcium (1.12-1.32) mmol/L Phosphorus (2.5-4.9) mg/dl Magnesium (1.7-2.4) mg/dl Troponin I (0-0.04) ng/ml C-Reactive Protein (0-0.5) mg/dl Nasal Screen MRSA (PCR) Negative (Negative) 05/25/21 05/25/21 05/25/21 Range/Units 21:57 21:45 21:45 WBC (4.8-10.8) K/uL RBC (4.2-5.4) M/uL Hgb (12.0-16.0) g/dL POC Hgb 10.2 L (12.0-16.0) g/dl Hct (37-47) % POC Hct 30 L (37-47) % MCV (80-100) fL MCH (25-34) pg MCHC (32-36) g/dL RDW Std Deviation (36.4-46.3) fL RDW Coeff of Libra (11.5-14.5) % Plt Count (130-400) K/uL MPV (7.4-10.4) fL Immature Gran % (Auto) % Neut % (Auto) % Lymph % (Auto) % Armstrong % (Auto) % Eos % (Auto) % Baso % (Auto) % Neut # (Auto) (1.4-6.5) K/uL Lymph # (Auto) (1.2-3.4) K/uL Armstrong # (Auto) (0.11-0.59) K/uL Eos # (Auto) (0-0.5) K/uL Baso # (Auto) (0-0.2) K/uL Immature Gran # (Auto) (0.00-0.02) K/uL Sample Site L Radial POC pH 7.38 (7.35-7.45) POC pCO2 28 L (35-46) mmHg POC pO2 51 L (80-95) mmHg POC HCO3 16 L (19-24) sasha/L POC Total CO2 17 L (24-31) mmol/L POC Base Excess -9.0 (-9-1.8) sasha/L ABG pH (Temp Correct) 7.382 (7.35-7.45) ABG pCO2 (Temp Corrct 28 L (35-46) mmHg POC ABG pO2 at Pt Temp 51 POC ABG O2 Sat 86.0 L (90-95) % Dave Test Pass O2 Delivery Device Ventilator POC O2 Rate 22 Minute Ventilation 7.7 POC FiO2 100 % Tidal Volume 350 PEEP 5 POC Sodium 135 (135-144) mmol/L Sodium (136-145) mmol/L POC Potassium 3.5 (3.3-5.0) mmol/L Potassium (3.5-5.1) mmol/L Chloride (98-107) mmol/L Carbon Dioxide (21-32) mmol/L Anion Gap (3-11) BUN (6-23) mg/dl Creatinine (0.6-1.2) mg/dl Est Cr Clr Drug Dosing ml/min Est GFR ( Amer) ml/min Est GFR (Non-Af Amer) ml/min BUN/Creatinine Ratio (10-20) Glucose (70-99(Fasting)) mg/dl POC Glucose (70-99) mg/dl Lactate (0.4-2.0) mmol/L Calcium (8.5-10.1) mg/dl Ionized Calcium 1.07 L (1.12-1.32) mmol/L Phosphorus (2.5-4.9) mg/dl Magnesium (1.7-2.4) mg/dl Troponin I 0.07 H* (0-0.04) ng/ml C-Reactive Protein (0-0.5) mg/dl Nasal Screen MRSA (PCR) (Negative) 05/25/21 05/25/21 Range/Units 21:45 21:45 WBC (4.8-10.8) K/uL RBC (4.2-5.4) M/uL Hgb (12.0-16.0) g/dL POC Hgb (12.0-16.0) g/dl Hct (37-47) % POC Hct (37-47) % MCV (80-100) fL MCH (25-34) pg MCHC 32.8 (32-36) g/dL RDW Std Deviation (36.4-46.3) fL RDW Coeff of Libra (11.5-14.5) % Plt Count (130-400) K/uL MPV (7.4-10.4) fL Immature Gran % (Auto) % Neut % (Auto) % Lymph % (Auto) % Armstrong % (Auto) % Eos % (Auto) % Baso % (Auto) % Neut # (Auto) (1.4-6.5) K/uL Lymph # (Auto) (1.2-3.4) K/uL Armstrong # (Auto) (0.11-0.59) K/uL Eos # (Auto) (0-0.5) K/uL Baso # (Auto) (0-0.2) K/uL Immature Gran # (Auto) (0.00-0.02) K/uL Sample Site POC pH (7.35-7.45) POC pCO2 (35-46) mmHg POC pO2 (80-95) mmHg POC HCO3 (19-24) sasha/L POC Total CO2 (24-31) mmol/L POC Base Excess (-9-1.8) sasha/L ABG pH (Temp Correct) (7.35-7.45) ABG pCO2 (Temp Corrct (35-46) mmHg POC ABG pO2 at Pt Temp POC ABG O2 Sat (90-95) % Dave Test O2 Delivery Device POC O2 Rate Minute Ventilation POC FiO2 % Tidal Volume PEEP POC Sodium (135-144) mmol/L Sodium 133 L (136-145) mmol/L POC Potassium (3.3-5.0) mmol/L Potassium 3.7 (3.5-5.1) mmol/L Chloride 103 (98-107) mmol/L Carbon Dioxide 20 L (21-32) mmol/L Anion Gap 10 (3-11) BUN 31 H (6-23) mg/dl Creatinine 0.88 (0.6-1.2) mg/dl Est Cr Clr Drug Dosing 45.9 ml/min Est GFR ( Amer) 71.9 ml/min Est GFR (Non-Af Amer) 62.1 ml/min BUN/Creatinine Ratio 35.2 H (10-20) Glucose 220 H (70-99(Fasting)) mg/dl POC Glucose (70-99) mg/dl Lactate (0.4-2.0) mmol/L Calcium 7.7 L (8.5-10.1) mg/dl Ionized Calcium (1.12-1.32) mmol/L Phosphorus 4.4 D (2.5-4.9) mg/dl Magnesium 2.2 (1.7-2.4) mg/dl Troponin I (0-0.04) ng/ml C-Reactive Protein (0-0.5) mg/dl Nasal Screen MRSA (PCR) (Negative) Diagnostic Findings Head CT 05/25/21 21:55 CT head/brain wo con CLINICAL HISTORY: AMS . Patient on ventilator COMPARISON STUDY: No previous studies for comparison. CT DOSE: 749.40 mGy.cm TECHNIQUE: Standard CT of the Brain was performed without IV contrast. A dose lowering technique was utilized adhering to the principles of ALARA. FINDINGS: Extraaxial space: There is no evidence for subdural hematoma. There are no extra-axial fluid collections. Ventricles and cisterns: The ventricles are normal in size and configuration. There is no evidence for midline shift or mass effect. Parenchyma: There is no subarachnoid or intraparenchymal hemorrhage. There is no evidence for an acute infarct or cerebral edema. There is homogeneous attenuation of the brain parenchyma. There are no gross mass lesions. Osseous structures: There is no evidence for an acute fracture. The visualized paranasal sinuses are clear. The mastoid air cells are clear bilaterally. Soft tissues: There is no evidence for focal soft tissue swelling. IMPRESSION: No acute intracerebral pathology. ACT 112: Negative or not required by law. Electronically signed by: Bobby Myles M.D. 05/25/2021 10:33 PM Chest X-Ray 05/26/21 07:00 XR chest 1V portable CLINICAL HISTORY: Resp failure. Follow-up right upper lobe opacity and left basilar atelectasis COMPARISON STUDY: 05/25/2021 TECHNIQUE: 1 view of the chest FINDINGS: Single frontal view of the chest demonstrates the heart size to again be enlarged. Compared to previous examination, endotracheal tube is now only 1 cm above the rah. It should be retracted at least 2 cm. NG tube is again seen extending into the body of the stomach. Compared to previous study, there has been interval worsening of right upper lobe alveolar opacity representing the presence of pneumonia. Air bronchograms are present. There is interval improvement of left basilar atelectasis. The remainder the lungs are clear. Minimal blunting of left costophrenic angle is present, again suspicious for small left pleural effusion. Is no evidence for right pleural effusion. There is no evidence for vascular congestion. There is no acute osseous pathology. IMPRESSION: 1. Tip of endotracheal tube only 1 cm above the rah. It should be retracted at least 2 cm. 2. Worsening alveolar opacity within the right upper lobe representing worsening right upper lobe pneumonia. 3. Decreased left basilar atelectasis. 4. There is again evidence for small left pleural effusion. ACT 112: Negative or not required by law. Electronically signed by: Bobby Myles M.D. 05/26/2021 8:[address] 05/26/21 08:32 CT chest diagnostic wo con CT DOSE: 194.42 mGy.cm HISTORY: Abnormal chest x-ray. Right upper lobe consolidation. TECHNIQUE: Multiaxial CT images of the chest were performed without contrast. A dose lowering technique was utilized adhering to the principles of ALARA. COMPARISON: Chest CT 05/09/2017. Chest 05/26/2021. FINDINGS: No pneumothorax. The central airways are patent. Small bilateral pleural effusions are noted. Dense consolidation within the right upper lobe with associated air bronchograms. Therefore, this favors a pneumonia. Linear areas consolidation within the base of the right lower lobe with mild volume loss. This favors atelectasis. There is also a bandlike area of consolidation within the left lower lobe posteriorly with volume loss. This also favors atelectasis. However, a pneumonia could also have a similar appearance. There are suture material within the right lung apex, unchanged. Stable hypodense lesions within the left hepatic lobe. These favor cysts. Multiple punctate calcified granulomas are again noted. Normal esophagus. No mediastinal or hilar lymphadenopathy. Normal caliber thoracic aorta. The heart is moderately enlarged. Dense coronary artery calcifications are noted. Old right-sided thoracotomy changes are again noted. There are subacute/healing left anterior third through eighth rib fractures. IMPRESSION: 1. Right upper lobe consolidative airspace opacity with associated air bronchograms. Therefore, this favors a pneumonia. 2. Bilateral lower lobe airspace opacities which may represent atelectasis or pneumonia. 3. Small bilateral pleural fusions. 4. Cardiomegaly. 5. Subacute/healing left anterior third through eighth rib fractures. No pneumothorax. 6. Postoperative changes within the right lung apex, unchanged. ACT 112: Negative or not required by law. Electronically signed by: Martinez Arreola M.D. 05/26/2021 12:33 PM PG Care Time/CCT Total # of Minutes Spent Total Time Spent with Patient: Total time spent is greater than 50% in coordination of care (as documented) at patient's floor/unit and/or counseling patient: Coding Level of Care Code 25425 Subseq Hosp Care Lvl 3 Diagnoses Sepsis A41.9 Pneumonia J18.9 Laterality: right Lung location: upper lobe of lung Pneumonia type: due to unspecified organism Urinary tract infection N39.0 Hematuria presence: without hematuria Urinary tract infection type: site unspecified Permanent atrial fibrillation I48.21 Duodenitis K29.80 Metabolic acidosis E87.2 Hyponatremia E87.1 Osteoporosis, unspecified M81.0 Osteoporosis type: age-related Presence of current pathological fracture: without current pathological fracture Chronic anticoagulation Z79.01 Hypertension I10 Hypertension type: essential hypertension Cardiomyopathy I42.9 Cardiomyopathy type: unspecified Chronic steroid use Rheumatoid arthritis M05.79 Rheumatoid arthritis location: multiple sites Rheumatoid factor presence: with rheumatoid factor Anxiety F41.9 PAD (peripheral artery disease) I73.9 Hypophosphatemia E83.39 Cardiac arrest I46.9 Ventricular fibrillation I49.01 Respiratory failure with hypoxia J96.91 Cardiogenic shock R57.0 Elevated troponin R77.8 (1) Urinary tract infection Hematuria presence: without hematuria Urinary tract infection type: site unspecified Qualified Code(s): N39.0 - Urinary tract infection, site not specified (2) Rheumatoid arthritis Rheumatoid arthritis location: multiple sites Rheumatoid factor presence: with rheumatoid factor Qualified Code(s): M05.79 - Rheumatoid arthritis with rheumatoid factor of multiple sites without organ or systems involvement (3) Osteoporosis, unspecified Osteoporosis type: age-related Presence of current pathological fracture: without current pathological fracture Qualified Code(s): M81.0 - Age-related osteoporosis without current pathological fracture (4) Hypertension Hypertension type: essential hypertension Qualified Code(s): I10 - Essential (primary) hypertension (5) Cardiomyopathy Cardiomyopathy type: unspecified Qualified Code(s): I42.9 - Cardiomyopathy, unspecified (6) Pneumonia Laterality: right Lung location: upper lobe of lung Pneumonia type: due to unspecified organism Qualified Code(s): J18.9 - Pneumonia, unspecified organism
[2021-05-26] MEDS ORDERED: LORazepam 0.5 MG TAB PO PRN (10:14)
[2021-05-26] MEDS: ROSUVASTATIN CALCIUM 5 MG TAB PO SCH (10:39)
[2021-05-26] MEDS: predniSONE 20 MG TAB PO SCH (10:40)
--- NOTE | 2021-05-26 10:58 | Critical Care Progress Note ---
Date of Service May 26, 2021 Assessment & Plan (1) Cardiac arrest: Plan: Reason Critically Ill: 80-year-old female with history of A. fib (on Eliquis), CHF, RA, PAD who presents to the ICU following cardiac arrest with ventricular fibrillation and unresponsive with suspected anoxic injury following ROSC. Currently in cardiogenic shock requiring vasopressor support and hypoxic respiratory failure requiring mechanical ventilation. Neuro - Patient is alert and oriented and following commands. No acute issues at present. Cardiac - Echo results pending, but suspect reduced EF due to cardiac arrest. Started on amiodarone due to her atrial fibrillation for further rate control. Given IV metoprolol 2.5 mg prior to extubation. Continue Eliquis and Plavix. V. fib cardiac arrest of unclear etiology. Cardiology consult. Respiratory - Perform well on spontaneous breathing trial and extubated to nasal cannula. CT chest personally reviewed with evidence of lobar pneumonia in the right upper lobe and atelectasis in the left lower lobe with a small pleural effusion. Discussed with hospitalist and recommend escalating antibiotics from ceftriaxone to cefepime. Discontinue azithromycin in favor of doxycycline. GI - Swallow study at bedside RENAL/LYTES - Creatinine within normal limits, monitor electrolytes and replete as indicated - Foleystrict I's and O's ENDO - No history of diabetes or thyroid disease ICU hyperglycemic protocol RAcontinue prednisone, hold methotrexate for now HEME - H&H stable, monitor routine CBC ID - Escalate from ceftriaxone to cefepime. Transition azithromycin to doxycycline. She is immunosuppressed on methotrexate, etanercept and chronic prednisone therapy. QuantiFERON gold testing from 2018 was negative. LINES/IV ACCESS - Peripheral IVs DVT PROPHYLAXIS - SCDs, patient on apixaban Patient stable for downgrade to PCU. Family updated extensively at bedside. Discussed on multidisciplinary rounds. Discussed with hospitalist. CRITICAL CARE TIME - I have personally spent 36 minutes of critical care time in the direct management of this patient. This is a life/limb threatening event. This includes time spent evaluating patient, direct bedside care, chart review, placing orders, interpretation of diagnostic studies, discussion with consultants, patient, and family members, as well as other required patient management activities. This time is exclusive of all separately billable procedures, and teaching time and separate from and in addition to any other critical care service time. (2) PAD (peripheral artery disease): (3) Rheumatoid arthritis: (4) Chronic steroid use: (5) Sepsis: (6) Systolic CHF: (7) Atrial fibrillation with rapid ventricular response: (8) Urinary tract infection: (9) Pneumonia: (10) Ventricular fibrillation: (11) Respiratory failure with hypoxia: Admission and Anticipated Discharge Date Admission Date: May 23, 2021 Subjective Patient seen and examined. She did very well with spontaneous breathing trial and was extubated to nasal cannula. She is oriented and alert. Denies any chest pain at present. No fevers or chills. Currently in atrial fibrillation with heart rates in the 1 teens. Review of Systems Review of Systems: All systems reviewed & are unremarkable except as noted in HPI & below Physical Exam Constitutional: well nourished and + frail appearing Eyes: PERRL, conjunctivae normal, anicteric sclerae ENMT: external ear and nose normal, oropharynx normal Neck: trachea midline, no thyromegaly Respiratory: Symmetrical chest wall movement, coarse crackles auscultated bilaterally in all lung manzano, diminished in bases. Cardiovascular: Rate/Rhythm: + tachycardic and + irregularly irregular Vessels: + JVD Extremities: no edema Gastrointestinal (Abdomen): normal bowel sounds, soft, nontender, no hepatosplenomegaly Musculoskeletal: Unable to assess Skin: no rashes, warm and dry Neurologic: Following commands. Neurologically intact. Genitourinary: Indwelling Villegas catheter present Results & Data Results & Data ([facility]) Vital Signs (Past 12 Hours) Vital Signs Temp Pulse Resp BP Pulse Ox 05/26/21 08:05 99 H 16 92 05/26/21 08:00 37.2 C 124 H 88/75 L 05/26/21 04:10 37.5 C 97 H 16 95 05/26/21 04:03 37.5 C 105 H 18 97/71 L 95 05/26/21 04:01 37.5 C 87 19 112/83 94 05/26/21 04:00 37.5 C 104 H 18 95 05/26/21 03:56 37.5 C 108 H 27 H 127/69 95 05/26/21 03:54 37.5 C 124 H 21 122/96 94 05/26/21 03:50 37.5 C 111 H 23 120/102 H 95 05/26/21 03:49 105 H 23 95 05/26/21 03:40 37.4 C 105 H 21 96 05/26/21 03:37 37.4 C 109 H 20 107/89 97 05/26/21 03:31 37.4 C 119 H 25 H 105/87 96 05/26/21 03:30 37.4 C 114 H 31 H 95 05/26/21 03:26 37.4 C 109 H 24 108/92 98 05/26/21 03:20 37.4 C 94 H 18 126/84 98 05/26/21 03:15 37.3 C 100 H 18 115/79 98 05/26/21 03:10 37.3 C 86 18 119/73 98 05/26/21 03:05 37.3 C 95 H 18 97/78 L 98 05/26/21 03:00 37.3 C 92 H 18 117/76 98 05/26/21 02:56 37.3 C 92 H 18 110/78 05/26/21 02:50 37.3 C 92 H 18 113/82 98 05/26/21 02:45 37.3 C 85 18 107/81 98 05/26/21 02:41 37.3 C 107 H 18 122/64 97 05/26/21 02:40 37.3 C 112 H 18 98 05/26/21 02:35 37.3 C 96 H 18 102/76 97 05/26/21 02:30 37.3 C 110 H 18 117/72 97 05/26/21 02:25 37.3 C 88 18 108/80 97 05/26/21 02:20 37.3 C 85 18 103/83 97 05/26/21 02:15 37.3 C 97 H 18 111/82 97 05/26/21 02:11 104/78 05/26/21 00:21 37.3 C 105 H 16 101/74 98 05/26/21 00:20 37.3 C 133 H 18 98 05/26/21 00:15 37.3 C 142 H 16 114/85 98 05/26/21 00:10 37.3 C 141 H 18 102/79 98 05/26/21 00:05 37.3 C 146 H 18 122/82 98 05/26/21 00:00 37.3 C 141 H 16 112/82 98 05/25/21 23:56 37.3 C 130 H 18 104/79 97 05/25/21 23:50 37.3 C 135 H 18 107/89 98 05/25/21 23:45 37.3 C 137 H 18 127/89 98 05/25/21 23:40 37.3 C 134 H 18 114/92 97 05/25/21 23:36 37.4 C 127 H 19 116/92 97 05/25/21 23:31 37.4 C 127 H 18 120/98 97 05/25/21 23:30 37.4 C 138 H 18 98 05/25/21 23:25 37.4 C 122 H 18 143/107 H 98 05/25/21 23:20 37.4 C 132 H 18 130/84 98 05/25/21 23:15 37.4 C 119 H 18 103/86 97 05/25/21 23:10 37.4 C 129 H 18 103/88 97 05/25/21 23:06 37.4 C 141 H 18 89/72 L 99 05/25/21 23:00 37.4 C 124 H 18 125/74 99 05/25/21 22:55 37.4 C 133 H 18 98/77 L 99 Coding Level of Care Code Critical Care 1st 30-74 mins Diagnoses Cardiac arrest I46.9 PAD (peripheral artery disease) I73.9 Rheumatoid arthritis M05.79 Rheumatoid arthritis location: multiple sites Rheumatoid factor presence: with rheumatoid factor Chronic steroid use Sepsis A41.9 Systolic CHF I50.20 Atrial fibrillation with rapid ventricular response I48.91 Urinary tract infection N39.0 Hematuria presence: without hematuria Urinary tract infection type: site unspecified Pneumonia J18.9 Laterality: right Lung location: upper lobe of lung Pneumonia type: due to unspecified organism Ventricular fibrillation I49.01 Respiratory failure with hypoxia J96.91 Time Spent (min) 36 (1) Rheumatoid arthritis Rheumatoid arthritis location: multiple sites Rheumatoid factor presence: with rheumatoid factor Qualified Code(s): M05.79 - Rheumatoid arthritis with rheumatoid factor of multiple sites without organ or systems involvement (2) Urinary tract infection Hematuria presence: without hematuria Urinary tract infection type: site unspecified Qualified Code(s): N39.0 - Urinary tract infection, site not specified (3) Pneumonia Laterality: right Lung location: upper lobe of lung Pneumonia type: due to unspecified organism Qualified Code(s): J18.9 - Pneumonia, unspecified organism
--- NOTE | 2021-05-26 11:30 | XCELERA ---
[id number]
[2021-05-26] MEDS: HYDROCORTISONE SOD 50 MG in SYRINGE 0 ML IV SCH ×2 (11:50→18:41)
--- NOTE | 2021-05-26 12:34 | CT Scan Report ---
CT chest diagnostic wo con CT DOSE: 194.42 mGy.cm HISTORY: Abnormal chest x-ray. Right upper lobe consolidation. TECHNIQUE: Multiaxial CT images of the chest were performed without contrast. A dose lowering techni que was utilized adhering to the principles of ALARA. COMPARISON: Chest CT 05/09/2017. Chest 05/26/2021. FINDINGS: No pneumothorax. The central airways are patent. Small bilateral pleural effusions are note d. Dense consolidation within the right upper lobe with associated air bronchograms. Therefore, this favors a pneumonia. Linear areas consolidation within the base of the right lower lobe with mild volu me loss. This favors atelectasis. There is also a bandlike area of consolidation within the left lowe r lobe posteriorly with volume loss. This also favors atelectasis. However, a pneumonia could also hernandez ve a similar appearance. There are suture material within the right lung apex, unchanged. Stable hypo dense lesions within the left hepatic lobe. These favor cysts. Multiple punctate calcified granulomas are again noted. Normal esophagus. No mediastinal or hilar lymphadenopathy. Normal caliber thoracic aorta. The heart is moderately enlarged. Dense coronary artery calcifications are noted. Old right-si ded thoracotomy changes are again noted. There are subacute/healing left anterior third through eight h rib fractures. IMPRESSION: 1. Right upper lobe consolidative airspace opacity with associated air bronchograms. Therefore, this favors a pneumonia. 2. Bilateral lower lobe airspace opacities which may represent atelectasis or pneumonia. 3. Small bilateral pleural fusions. 4. Cardiomegaly. 5. Subacute/healing left anterior third through eighth rib fractures. No pneumothorax. 6. Postoperative changes within the right lung apex, unchanged. ACT 112: Negative or not required by law. Electronically signed by: Martinez Arreola M.D. 05/26/2021 12:33 PM
[2021-05-26] MEDS: DOXYCYCLINE HYCLATE 100 MG in DEXTROSE 5% 100 ML IV SCH ×2 (12:57→23:37)
[2021-05-26] MEDS: CEFEPIME 2,000 MG in SYRINGE 0 ML IV SCH ×2 (12:57→23:37)
[2021-05-26] MEDS: AMIODARONE / D5W 360 MG/200 ML BAG IV SCH (14:04)
--- NOTE | 2021-05-26 15:23 | Cardiology Consultation ---
Date of Consultation May 26, 2021 Assessment & Plan (1) Ventricular fibrillation: (2) Cardiac arrest: (3) Elevated troponin: (4) Cardiomyopathy: (5) Permanent atrial fibrillation: ASSESSMENT/PLAN: 1. Cardiac arrest/ventricular fibrillation: Discussed with patient and her daughter at the bedside. Defibrillation was successful after 1 attempt and remains now in atrial fibrillation which has been a chronic issue. Discussed potential ICD at some point during this hospital stay as/if she improves from her pneumonia standpoint, if she is agreeable. On amiodarone. Can continue amiodarone for now. 2. Cardiomyopathy: Has baseline reduced LV systolic function but more signifi cantly reduced following this event, which is not unexpected. Consideration for ICD as above. Hopefully LV systolic function improves back to her previous baseline. Resume metoprolol succinate if blood pressure remains stable off of pressors. If she continues to improve with stable blood pressure, could consider resuming RUSSEL-inhibitor in the future. She appears euvolemic. 3. Elevated troponin: Troponin elevation occurred following VFib arrest, and likely due to hypoperfusion during the episode. VFib arrest did not appear to be acute coronary syndrome based on ECG immediately following and the fact that she had no anginal symptoms. Cannot entirely rule out ischemic event. No urgent indication for cardiac catheterization. 4. Permanent atrial fibrillation: Heart rate mildly elevated, which is not surprising given her acute illness and ongoing pneumonia. Would resume beta- angelito as mentioned above if blood pressure remains stable off of pressors. Also now on amiodarone which is likely offering some rate control. Continue anticoagulation for stroke risk reduction. Weight > 60 kg. 5. Disposition: Dr. Daley will be on-call for the next 2 days for any questions or concerns. Patient care communicated with Dr. Turk and Dr. Giraldo of the primary and critical care services, respectively. Cold highly complex medical issues. Thank you for allowing me to participate in the care of your patient. Please call for any other questions or concerns. Sincerely, Ike Basurto M.D. History of Present Illness Reason for Consultation: VFib arrest Requesting Physician: Dr. Giraldo Attending Physician: Leida Turk MD History of Present Illness Ms. Welch is a very pleasant 80-year-old female with history significant for permanent atrial fibrillation, cardiomyopathy, hypertension, dyslipidemia, and rheumatoid arthritis. Her primary drapery counselor is Dr. Sams. She was hospitalized on 05/23/2021 with pneumonia. She presented with fever and rigors. Throughout her hospital stay, her heart rate has been more elevated than usual despite the use of her rate-controlling medications, diltiazem and metoprolol. She is immuno suppressed on chronic prednisone, etanercept, and methotrexate for her rheumatoid arthritis. On 05/25/2021, at 9:13 p.m., she developed ventricular fibrillation. Based on telemetry evaluation, CPR began at 9:16 p.m. and defibrillation at 9:19 p.m., which terminated VFib. She was intubated and transferred to the ICU. She had received 1 dose of epinephrine. ECG did not demonstrate ST elevation. She was able to be extubated this morning and underwent CT imaging of the chest which demonstrated right upper lobe consolidation with air bronchograms, bilateral lower lobe airspace opacities, small bilateral pleural effusions, and subacute/healing left anterior third through eighth rib fractures, without pneumothorax. She does not use supplemental oxygen at home but is currently on 5 L. She denies shortness of breath. She denies chest pain, angina, syncope, near-syncope, palpitations, edema, or bleeding. She does feel weak and does not have any appetite. She also reports that she developed diarrhea earlier this hospital stay while on antibiotics. Her daughter, Molly, was present at the bedside. Review of systems: As above. Review of systems otherwise nega tive/unremarkable. Family history: No known premature CAD. Social history: She quit smoking approximately 30 years ago. She lives alone. . Five children. Grandchildren. Allergies Allergy/AdvReac Type Severity Reaction Status Date / Time morphine AdvReac Intermediate NAUSEA Verified 05/23/21 12:27 Home Medications Medication Instructions Recorded Confirmed Type potassium chloride 20 mEq 20 meq PO QAM 04/19/18 05/23/21 History tablet,extended release (K-Tab) etanercept 50 mg/mL (1 mL) 50 mg SUBCUT WK #4 ml 03/17/20 05/23/21 Rx subcutaneous pen injector (Enbrel SureClick) apixaban 5 mg tablet (Eliquis) 5 mg PO BID #60 tab 07/15/20 05/23/21 Rx metoprolol succinate 100 mg 100 mg PO QAM #90 tab 09/02/20 05/23/21 Rx tablet,extended release 24 hr (Toprol XL) prednisone 1 mg tablet 3 mg PO .COMPLEX #300 tab 09/30/20 05/23/21 Rx leucovorin calcium 5 mg tablet 10 mg PO WK #28 tab 12/22/20 05/23/21 Rx lorazepam 0.5 mg tablet 0.5 mg PO HS PRN #30 tab 02/16/21 05/23/21 Rx clopidogrel 75 mg tablet (Plavix) 75 mg PO QAM 05/23/21 05/23/21 History diltiazem HCl 120 mg 120 mg PO QAM 05/23/21 05/23/21 History capsule,extended release 24 hr lisinopril 2.5 mg tablet 5 mg PO QAM 05/23/21 05/23/21 History methotrexate sodium 2.5 mg tablet 10 mg PO WK 05/23/21 05/23/21 History rosuvastatin 5 mg tablet 5 mg PO QAM 05/23/21 05/23/21 History folic acid 1 mg tablet 1 mg PO DAILY 05/24/21 05/24/21 History Patient History Medical History Atrial fibrillation Atrial fibrillation with RVR Brain aneurysm under surveillance by PCP (stable x years) Bronchitis (~03/23/19) Chronic steroid use GERD (gastroesophageal reflux disease) Hyperlipidemia Hypertension Kidney stones Osteoporosis, unspecified PAD (peripheral artery disease) Pneumonia Rheumatoid arthritis Systolic CHF Surgical History H/O foot surgery History of lithotripsy History of thoracotomy FOR COLLAPSED LUNG - HAD WEDGE RESECTION LOWER RIGHT Hx of cataract extraction Family History Mother Arthritis Father Congestive heart failure (CHF) Aunt Breast cancer Sister Stroke Other Thoracic aortic aneurysm Denies family history of Ovarian cancer Prostate cancer Diabetes Myocardial infarction Lung cancer Colorectal cancer Social History Smoking Status: Former smoker Age Started Using Tobacco: 16; Age Quit Using Tobacco: 45; packs per day: 0.5; Years Smoked: 29; Number of Years Since Quit: 33; Second Hand Exposure: No; Hx Alcohol Use: No Hx Substance Use: No Preferred Language: Bolivian Communication Ability: Effective Visual Impairment: Limited Hearing Ability: Normal Copy Lathe Operator Required: No Beliefs That Will Affect Care: None marital status: / Current Living Situation: Alone current occupational status: retired How many Children do You have: 5 Feels Safe at Home: Yes Childhood Exposure to Second-Hand Smoke: Yes (dad did off and on ) caffeine: Yes (coffee) Dental Care, Regularly: No Physical Activity Frequency: Daily Physical Activity Frequency Comment: walks daily Seatbelt Use: always Sunscreen Use: Yes Assistive Devices: Glasses and Walker Physical Exam Physical Exam: Gen.: No acute distress. Alert. HEENT: Anicteric sclera. Neck: No JVD. Central line right neck. Cardiac: PMI was nondisplaced. No ventricular heave. Irregularly irregular with mild tachycardia. Normal S1-S2. No murmurs, rubs, or gallops. Pulmonary: Diminished breath sounds at the bases. Coarse breath sounds bilaterally. Abdomen: Soft, nontender, nondistended, with normoactive bowel sounds. No bruits noted. Extremities: 2+ radial pulses bilaterally. 2+ posterior tibialis pulses bilaterally. No edema or cyanosis. Psychiatric: Affect appears appropriate. Results & Data ([facility]) Vital Signs (Past 12 Hours) Vital Signs Temp Pulse Resp BP Pulse Ox 05/26/21 11:30 110 H 22 101/70 93 05/26/21 11:01 103 H 20 112/67 92 05/26/21 11:00 107 H 18 92 05/26/21 10:30 103 H 13 101/65 92 05/26/21 10:10 104 H 21 96/70 L 90 05/26/21 10:04 110 H 21 93 05/26/21 09:35 37.2 C 105 H 24 109/83 92 05/26/21 09:34 37.2 C 112 H 13 93 05/26/21 09:01 37.2 C 128 H 20 124/85 88 L 05/26/21 09:00 37.2 C 120 H 28 H 90 05/26/21 08:30 37.3 C 109 H 23 120/89 91 05/26/21 08:05 99 H 16 92 05/26/21 08:02 37.2 C 132 H 13 133/85 96 05/26/21 08:00 37.2 C 114 H 7 L 88/75 L 92 05/26/21 07:31 37.2 C 99 H 18 89/75 L 96 05/26/21 07:30 37.2 C 115 H 19 95 05/26/21 07:00 37.2 C 114 H 20 96 05/26/21 04:10 37.5 C 97 H 16 95 05/26/21 04:03 37.5 C 105 H 18 97/71 L 95 05/26/21 04:01 37.5 C 87 19 112/83 94 05/26/21 04:00 37.5 C 104 H 18 95 05/26/21 03:56 37.5 C 108 H 27 H 127/69 95 05/26/21 03:54 37.5 C 124 H 21 122/96 94 05/26/21 03:50 37.5 C 111 H 23 120/102 H 95 05/26/21 03:49 105 H 23 95 05/26/21 03:40 37.4 C 105 H 21 96 05/26/21 03:37 37.4 C 109 H 20 107/89 97 05/26/21 03:31 37.4 C 119 H 25 H 105/87 96 05/26/21 03:30 37.4 C 114 H 31 H 95 05/26/21 03:26 37.4 C 109 H 24 108/92 98 Laboratory Results Laboratory Results - last 24 hr 05/25/21 05/25/21 05/25/21 21:45 21:45 21:45 WBC 12.74 H RBC 3.54 L Hgb 11.4 L POC Hgb Hct 34.8 L POC Hct MCV 98.3 MCH 32.2 MCHC 32.8 RDW Std Deviation 53.6 H RDW Coeff of Libra 14.8 H Plt Count 269 MPV 10.1 Immature Gran % (Auto) Neut % (Auto) Lymph % (Auto) Bertie % (Auto) Eos % (Auto) Baso % (Auto) Neut # (Auto) Lymph # (Auto) Bertie # (Auto) Eos # (Auto) Baso # (Auto) Immature Gran # (Auto) PT 12.7 H INR 1.3 H Sample Site POC pH POC pCO2 POC pO2 POC HCO3 POC Total CO2 POC Base Excess ABG pH (Temp Correct) ABG pCO2 (Temp Corrct POC ABG pO2 at Pt Temp POC ABG O2 Sat Dave Test O2 Delivery Device POC O2 Rate Minute Ventilation POC FiO2 Tidal Volume PEEP POC Sodium Sodium 133 L POC Potassium Potassium 3.7 Chloride 103 Carbon Dioxide 20 L Anion Gap 10 BUN 31 H Creatinine 0.88 Est Cr Clr Drug Dosing 45.9 Est GFR ( Amer) 71.9 Est GFR (Non-Af Amer) 62.1 BUN/Creatinine Ratio 35.2 H Glucose 220 H POC Glucose Lactate Calcium 7.7 L Ionized Calcium Phosphorus 4.4 D Magnesium 2.2 Troponin I C-Reactive Protein Nasal Screen MRSA (PCR) 05/25/21 05/25/21 05/25/21 21:45 21:45 21:57 WBC RBC Hgb POC Hgb 10.2 L Hct POC Hct 30 L MCV MCH MCHC RDW Std Deviation RDW Coeff of Libra Plt Count MPV Immature Gran % (Auto) Neut % (Auto) Lymph % (Auto) Bertie % (Auto) Eos % (Auto) Baso % (Auto) Neut # (Auto) Lymph # (Auto) Bertie # (Auto) Eos # (Auto) Baso # (Auto) Immature Gran # (Auto) PT INR Sample Site L Radial POC pH 7.38 POC pCO2 28 L POC pO2 51 L POC HCO3 16 L POC Total CO2 17 L POC Base Excess -9.0 ABG pH (Temp Correct) 7.382 ABG pCO2 (Temp Corrct 28 L POC ABG pO2 at Pt Temp 51 POC ABG O2 Sat 86.0 L Dave Test Pass O2 Delivery Device Ventilator POC O2 Rate 22 Minute Ventilation 7.7 POC FiO2 100 Tidal Volume 350 PEEP 5 POC Sodium 135 Sodium POC Potassium 3.5 Potassium Chloride Carbon Dioxide Anion Gap BUN Creatinine Est Cr Clr Drug Dosing Est GFR ( Amer) Est GFR (Non-Af Amer) BUN/Creatinine Ratio Glucose POC Glucose Lactate Calcium Ionized Calcium 1.07 L Phosphorus Magnesium Troponin I 0.07 H* C-Reactive Protein Nasal Screen MRSA (PCR) 05/25/21 05/25/21 05/26/21 22:00 23:05 03:38 WBC RBC Hgb POC Hgb 11.2 L Hct POC Hct 33 L MCV MCH MCHC RDW Std Deviation RDW Coeff of Libra Plt Count MPV Immature Gran % (Auto) Neut % (Auto) Lymph % (Auto) Bertie % (Auto) Eos % (Auto) Baso % (Auto) Neut # (Auto) Lymph # (Auto) Bertie # (Auto) Eos # (Auto) Baso # (Auto) Immature Gran # (Auto) PT INR Sample Site R Radial POC pH 7.40 POC pCO2 31 L POC pO2 82 POC HCO3 19 POC Total CO2 20 L POC Base Excess -6.0 ABG pH (Temp Correct) 7.391 ABG pCO2 (Temp Corrct 32 L POC ABG pO2 at Pt Temp 84 POC ABG O2 Sat 96.0 H Dave Test Pass O2 Delivery Device Ventilator POC O2 Rate 18 Minute Ventilation 9.1 POC FiO2 50 Tidal Volume 350 PEEP 8 POC Sodium 131 L Sodium POC Potassium 4.5 Potassium Chloride Carbon Dioxide Anion Gap BUN Creatinine Est Cr Clr Drug Dosing Est GFR ( Amer) Est GFR (Non-Af Amer) BUN/Creatinine Ratio Glucose POC Glucose Lactate 3.0 H* Calcium Ionized Calcium Phosphorus Magnesium Troponin I C-Reactive Protein Nasal Screen MRSA (PCR) Negative 05/26/21 05/26/21 05/26/21 05:40 05:40 05:40 WBC 16.84 H RBC 3.46 L Hgb 11.3 L POC Hgb Hct 33.8 L POC Hct MCV 97.7 MCH 32.7 MCHC 33.4 RDW Std Deviation 53.5 H RDW Coeff of Libra 15.0 H Plt Count 280 MPV 10.0 Immature Gran % (Auto) 2.1 Neut % (Auto) 75.3 Lymph % (Auto) 13.5 Bertie % (Auto) 8.8 Eos % (Auto) 0.1 Baso % (Auto) 0.2 Neut # (Auto) 12.69 H Lymph # (Auto) 2.27 Bertie # (Auto) 1.48 H Eos # (Auto) 0.02 Baso # (Auto) 0.03 Immature Gran # (Auto) 0.35 H PT INR Sample Site POC pH POC pCO2 POC pO2 POC HCO3 POC Total CO2 POC Base Excess ABG pH (Temp Correct) ABG pCO2 (Temp Corrct POC ABG pO2 at Pt Temp POC ABG O2 Sat Dave Test O2 Delivery Device POC O2 Rate Minute Ventilation POC FiO2 Tidal Volume PEEP POC Sodium Sodium 132 L POC Potassium Potassium 4.2 Chloride 103 Carbon Dioxide 21 Anion Gap 8 BUN 36 H Creatinine 1.01 Est Cr Clr Drug Dosing 40.0 Est GFR ( Amer) 60.9 Est GFR (Non-Af Amer) 52.5 BUN/Creatinine Ratio 35.6 H Glucose 198 H POC Glucose Lactate 2.2 H* Calcium 8.2 L Ionized Calcium Phosphorus 5.1 H Magnesium 2.0 Troponin I 1.56 H* C-Reactive Protein 11.97 H Nasal Screen MRSA (PCR) 05/26/21 05/26/21 05/26/21 09:06 11:47 14:59 WBC RBC Hgb POC Hgb Hct POC Hct MCV MCH MCHC RDW Std Deviation RDW Coeff of Libra Plt Count MPV Immature Gran % (Auto) Neut % (Auto) Lymph % (Auto) Bertie % (Auto) Eos % (Auto) Baso % (Auto) Neut # (Auto) Lymph # (Auto) Bertie # (Auto) Eos # (Auto) Baso # (Auto) Immature Gran # (Auto) PT INR Sample Site POC pH POC pCO2 POC pO2 POC HCO3 POC Total CO2 POC Base Excess ABG pH (Temp Correct) ABG pCO2 (Temp Corrct POC ABG pO2 at Pt Temp POC ABG O2 Sat Dave Test O2 Delivery Device POC O2 Rate Minute Ventilation POC FiO2 Tidal Volume PEEP POC Sodium Sodium POC Potassium Potassium Chloride Carbon Dioxide Anion Gap BUN Creatinine Est Cr Clr Drug Dosing Est GFR ( Amer) Est GFR (Non-Af Amer) BUN/Creatinine Ratio Glucose POC Glucose 178 H Lactate Calcium Ionized Calcium Phosphorus Magnesium Troponin I 1.21 H* 0.75 H* C-Reactive Protein Nasal Screen MRSA (PCR) Diagnostic Findings Telemetry personally reviewed: Atrial fibrillation with mild tachycardia. VFib as described above in HPI. Echo 05/26/2021: Normal LV size. EF 30-35%. Akinetic mid anteroseptum, otherwise global hypokinesis with relative sparing of the inferolateral wall. Mildly reduced RV systolic function with hypo to akinesis of the mid to distal RV free wall. Severe right atrial dilation. Mild AI. Mild MR. RVSP 40. ECG personally reviewed: ECG 05/25/2021 at 9:28 p.m.: AFib with RVR and PVC versus aberrantly conducted complexes. 148 beats per minute. ECG 05/26/2021 at 9:21 a.m.: AFib with RVR 111 beats per minute. Nonspecific T-wave abnormality. CT chest report reviewed as noted above in HPI. Medications Administered Current Inpatient Medications Acetaminophen (Acetaminophen 325 Mg Tab) 650 mg PO Q4H PRN PRN Reason: Pain or fever Stop: 06/23/21 11:02 Apixaban (Apixaban 5 Mg Tablet) 5 mg PO BID AAKASH Stop: 06/25/21 20:59 Clopidogrel Bisulfate (Clopidogrel Bisulfate 75 Mg Tab) 75 mg PO QAM AAKASH Stop: 06/26/21 08:59 Folic Acid (Folic Acid 1 Mg Tab) 1 mg PO QAM AAKASH Stop: 06/26/21 08:59 Pantoprazole Sodium 40 mg/ (Syringe) 10 mls @ 5 mls/min IV BID AAKASH Stop: 06/23/21 08:59 Last Admin: 05/26/21 08:35 Dose: 5 mls/min Documented by: Amiodarone HCl/Dextrose (Nexterone / D5w) 360 mg in 200 mls @ 16.667 mls/hr IV .Q12H AAKASH Stop: 06/25/21 14:14 Last Admin: 05/26/21 14:04 Dose: 0.5 mg/min, 16.7 mls/hr Documented by: Hydrocortisone Sodium (Succinate 50 mg/ Syringe) 1 mls @ 4 mls/min IV Q8H [facility] Stop: 06/25/21 10:29 Last Admin: 05/26/21 11:50 Dose: 4 mls/min Documented by: Cefepime HCl 2,000 mg/ Syringe 20 mls @ 5 mls/min IV Q12H [facility]; Protocol Stop: 06/02/21 12:29 Last Admin: 05/26/21 12:57 Dose: 5 mls/min Documented by: Doxycycline Hyclate 100 mg/ (Dextrose) 110 mls @ 50 mls/hr IV Q12H AAKASH Stop: 06/02/21 12:14 Last Infusion: 05/26/21 15:04 Dose: Infused Documented by: Levalbuterol HCl (Levalbuterol Hcl 0.63 Mg/3 Ml Neb) 0.63 mg NEB Q6R PRN; Protocol PRN Reason: wheezing or SOB Stop: 06/23/21 16:59 Lorazepam (Lorazepam 0.5 Mg Tab) 0.5 mg PO HS PRN PRN Reason: insomnia Stop: 06/25/21 10:13 Metoprolol Succinate (Metoprolol Succ 50mg Ext Rel Tab) [facility] [place] Stop: 06/23/21 08:59 Last Admin: 05/25/21 08:53 Dose: 100 mg Documented by: Metoprolol Tartrate (Metoprolol Tartrate 1 Mg/Ml Vial) 5 mg IV Q4 PRN PRN Reason: tachycardia HR>120 Stop: 06/23/21 00:54 Last Admin: 05/26/21 08:00 Dose: 2.5 mg Documented by: Rosuvastatin Calcium (Rosuvastatin Calcium 5 Mg Tab) 5 mg PO [facility] Stop: 06/23/21 08:59 Last Admin: 05/26/21 10:39 Dose: Not Given Documented by: PG Care Time/CCT Total # of Minutes Spent Total Time Spent with Patient: Total time spent is greater than 50% in coordination of care (as documented) at patient's floor/unit and/or counseling patient: Coding Level of Care Code 82477 Initial Inpt Care Lvl 3 Diagnoses Ventricular fibrillation I49.01 Cardiac arrest I46.9 Elevated troponin R77.8 Cardiomyopathy I42.9 Cardiomyopathy type: unspecified Permanent atrial fibrillation I48.21 (1) Cardiomyopathy Cardiomyopathy type: unspecified Qualified Code(s): I42.9 - Cardiomyopathy, unspecified
[2021-05-26] MEDS ORDERED: SODIUM CHLORIDE 0.9% 1000ML 250 ML IV ONE (18:28)
[2021-05-26] MEDS: APIXABAN 5 MG TABLET PO SCH (21:21)
--- NOTE | 2021-05-26 21:49 | Electrocardiogram Report ---
Test Reason : Blood Pressure : / mmHG Vent. Rate : 111 BPM Atrial Rate : 069 BPM P-R Int : 000 ms QRS Dur : 090 ms QT Int : 368 ms P-R-T Axes : 000 012 140 degrees QTc Int : 501 ms Atrial fibrillation with rapid ventricular response Nonspecific T wave abnormality Prolonged QT Abnormal ECG When compared with ECG of 12-MAY-2019 09:06, QT has lengthened Confirmed by Drew Basurto ([id number]) on 05/26/2021 9:48:58 PM Referred By: Rd Madden Confirmed By:Drew Basurto
[2021-05-27] MEDS: AMIODARONE / D5W 360 MG/200 ML BAG IV SCH ×2 (01:31→14:00)
[2021-05-27] MEDS: HYDROCORTISONE SOD 50 MG in SYRINGE 0 ML IV SCH ×2 (01:32→11:16)
[2021-05-27 06:35] LABS: Basophils # (auto) 0.02 K/uL (0-0.2); Basophils % (auto) 0.1 %; Eosinophils # (auto) 0.01 K/uL (0-0.5); Eosinophils % (auto) 0.1 %; Hematocrit (blood only) 33.6 % (37-47); Hemoglobin 11.2 g/dL (12.0-16.0); Immature Granulocytes # (auto) 0.35 K/uL (0.00-0.02); Immature Granulocytes % (auto) 2.3 %; Lymphocytes # (auto) 1.36 K/uL (1.2-3.4); Lymphocytes % (auto) 8.9 %; Mean Corpuscular Hemoglobin 32.5 pg (25-34); Mean Corpuscular Hgb Conc 33.3 g/dL (32-36); Mean Corpuscular Volume 97.4 fL (80-100); Mean Platelet Volume 10.5 fL (7.4-10.4); Monocytes # (auto) 0.97 K/uL (0.11-0.59); Monocytes % (auto) 6.3 %; Neutrophils # (auto) 12.62 K/uL (1.4-6.5); Neutrophils % (auto) 82.3 %; Nucleated RBC # (auto) 0.05 K/uL (0-0); Nucleated RBC % (auto) 0.3 %; Platelet Count 276 K/uL (130-400); Red Blood Count 3.45 M/uL (4.2-5.4); White Blood Count 15.33 K/uL (4.8-10.8)
--- NOTE | 2021-05-27 06:35 | Electrocardiogram Report ---
Test Reason : Blood Pressure : / mmHG Vent. Rate : 148 BPM Atrial Rate : 102 BPM P-R Int : 000 ms QRS Dur : 080 ms QT Int : 274 ms P-R-T Axes : 000 053 083 degrees QTc Int : 430 ms Atrial fibrillation with rapid ventricular response with premature ventricular or aberrantly conducte d complexes Nonspecific T wave abnormality Abnormal ECG When compared with ECG of 23-MAY-2021 10:30, Premature ventricular complexes are now Present Confirmed by Drew Basurto ([id number]) on 05/27/2021 6:34:42 AM Referred By: Rd Madden Confirmed By:Drew Basurto
[2021-05-27 06:44] LABS: Albumin Level 2.8 gm/dl (3.4-5.0); BUN Creatinine Ratio 46.2 (10-20); Bilirubin,Total 0.7 mg/dl (0.2-1.0); C Reactive Protein 16.93 mg/dl (0-0.5); Calcium 8.2 mg/dl (8.5-10.1); Creatinine Clr Calc Pharmacy 57.1 ml/min; Est GFR (African American) 97.2 ml/min; Est GFR (Non-African American) 83.9 ml/min; Globulin 2.8 gm/dl (2.5-4.0); Phosphorus 3.2 mg/dl (2.5-4.9); Potassium 3.8 mmol/L (3.5-5.1); Total Protein 5.6 gm/dl (6.0-8.3)
[2021-05-27] MEDS: APIXABAN 5 MG TABLET PO SCH ×2 (07:54→21:03)
[2021-05-27] MEDS: PANTOprazole 40 MG in SYRINGE 0 ML IV SCH ×2 (07:54→21:05)
[2021-05-27] MEDS: ROSUVASTATIN CALCIUM 5 MG TAB PO SCH (07:54)
[2021-05-27] MEDS: FOLIC ACID 1 MG TAB PO SCH (08:20)
[2021-05-27] MEDS: CLOPIDOGREL BISULFATE 75 MG TAB PO SCH (08:20)
--- NOTE | 2021-05-27 08:32 | Cardiology Progress Note ---
Date of Service May 27, 2021 Assessment & Plan (1) Cardiac arrest: (2) Cardiomyopathy: (3) Elevated troponin: (4) Permanent atrial fibrillation: Plan: ASSESSMENT/PLAN: 1. Cardiac arrest/ventricular fibrillation: She had spontaneous sudden onset of ventricular fibrillation without bradycardia or ventricular ectopy. This is unusual, it suggests a primary arrhythmic event and I think we will require an ICD to prevent future recurrences. We can do that when she is medically stable but she seems to be doing quite well. Perhaps early this coming week. I discussed it with the patient but not the family. She is on intravenous amiodarone, we can continue it for now, perhaps until an ICD is in place. 2. Cardiomyopathy: Her left ventricular function is borderline for ICD placement for primary prevention however for secondary prevention this is not an issue. Her cardiomyopathy could in part be due to rapid atrial fibrillation and we need to control her heart rate. 3. Elevated troponin: The rapid rise and fall of her troponin is most consistent with demand ischemia from the arrest not from a coronary event. I do not think further evaluation is indicated at this time. 4. Permanent atrial fibrillation: Her heart rate remains elevated despite intravenous amiodarone, we need something additional for rate control especially with her cardiomyopathy. Beta-blockers would be beneficial both for her heart rate and for her cardiomyopathy as well as a beneficial effect for ventricular arrhythmias. I am going to start metoprolol succinate since that may be better for rate control than carvedilol. I think her blood pressure can support moderate doses of beta-blockade. If not I would add digoxin. My goal would be to get her heart rate under reasonable control by tomorrow. I would like to avoid intravenous diltiazem although we could consider that. Admission and Anticipated Discharge Date Admission Date: May 23, 2021 Subjective Chart reviewed. She has a history of cardiomyopathy and suffered a cardiac arrest on May 25, 2021. Her left ventricular function is markedly reduced following the event, felt to be 30 to 35% by echocardiography May 26, 2021. She did have an elevated troponin but that was felt to be secondary to the arrhythmia. She has permanent atrial fibrillation which is ongoing. An ICD for secondary prevention of ventricular fibrillation is being considered. I reviewed telemetry, she appears to have sudden onset of ventricular fibrillation at 2113 on May 25, 2021. The ventricular fibrillation converted to ventricular tachycardia after about 4 minutes and then was cardioverted from VT but remained in atrial fibrillation. The onset was abrupt ventricular fibrillation. At the time of my evaluation she looks very good. She is alert and conversational, she answers questions appropriately and is not complaining of any specific cardiac findings. She is aware that her heart rate is rapid although it does not bother her very much. She does not have chest discomfort and has not had lightheadedness or dizziness. Physical Exam Physical Exam: Constitutional: Alert, cooperative and in no distress. HEENT: Unremarkable Neck: No jugular venous distention, carotid pulses are irregular but otherwise normal and equal bilaterally without bruits. Pulmonary: Clear to auscultation bilaterally. Cardiac: Irregular rhythm with no murmur, gallop or rub. She seems to have a v entricular heave. Abdomen: Soft, nontender with normal bowel sounds. Extremities: No edema. Distal pulses intact. Neurologic: No focal findings. Gait was not tested. Skin: No rash, ecchymoses or petechiae. Results & Data ([facility]) Vital Signs (Past 12 Hours) Vital Signs Temp Pulse Resp BP Pulse Ox 05/27/21 03:00 36.6 C 113 H 16 122/94 98 05/27/21 02:50 36.6 C 113 H 17 97 05/27/21 02:40 116 H 16 96 05/27/21 02:30 113 H 18 96 05/27/21 02:20 109 H 20 98 05/27/21 02:10 103 H 15 98 05/27/21 02:00 117 H 16 99 05/27/21 01:50 105 H 17 99 05/27/21 01:40 122 H 16 99 05/27/21 01:30 130 H 16 99 05/27/21 01:20 109 H 18 98 05/27/21 01:10 130 H 20 93 05/27/21 01:00 115 H 15 99 05/27/21 00:50 125 H 16 99 05/27/21 00:44 36.5 C 05/27/21 00:40 115 H 18 99 05/27/21 00:30 129 H 15 97 05/27/21 00:20 116 H 14 98 05/27/21 00:10 113 H 16 98 05/27/21 00:00 120 H 15 104/88 98 05/26/21 23:50 118 H 18 97 05/26/21 23:40 112 H 19 94 05/26/21 23:30 110 H 18 97 05/26/21 23:20 122 H 19 97 05/26/21 23:10 124 H 15 99 05/26/21 23:00 121 H 17 98 05/26/21 22:50 136 H 24 96 05/26/21 22:40 105 H 17 97 05/26/21 22:38 36.7 C 05/26/21 22:30 116 H 16 98 05/26/21 22:20 113 H 18 98 05/26/21 22:10 116 H 17 98 05/26/21 22:00 115 H 16 96 05/26/21 21:50 108 H 16 98 05/26/21 21:40 133 H 22 96 05/26/21 21:30 122 H 35 H 92 05/26/21 21:20 130 H 28 H 90 05/26/21 21:10 125 H 22 92 05/26/21 21:00 126 H 23 94 05/26/21 20:50 118 H 22 92 05/26/21 20:40 125 H 18 95 Laboratory Results Cardiac Enzymes 05/26/21 05/26/21 05/27/21 Range/Units 09:06 14:59 05:32 AST 27 (13-39) U/L Troponin I 1.21 H* 0.75 H* (0-0.04) ng/ml CBC 05/27/21 Range/Units 05:32 WBC 15.33 H (4.8-10.8) K/uL RBC 3.45 L (4.2-5.4) M/uL Hgb 11.2 L (12.0-16.0) g/dL Hct 33.6 L (37-47) % Plt Count 276 (130-400) K/uL Neut # (Auto) 12.62 H (1.4-6.5) K/uL Lymph # (Auto) 1.36 (1.2-3.4) K/uL Moody # (Auto) 0.97 H (0.11-0.59) K/uL Eos # (Auto) 0.01 (0-0.5) K/uL Baso # (Auto) 0.02 (0-0.2) K/uL Comprehensive Metabolic Panel 05/27/21 Range/Units 05:32 Sodium 131 L (136-145) mmol/L Potassium 3.8 (3.5-5.1) mmol/L Chloride 102 (98-107) mmol/L Carbon Dioxide 18 L (21-32) mmol/L BUN 30 H (6-23) mg/dl Creatinine 0.65 D (0.6-1.2) mg/dl Glucose 171 H (70-99(Fasting)) mg/dl Calcium 8.2 L (8.5-10.1) mg/dl AST 27 (13-39) U/L ALT 29 (7-52) U/L Alkaline Phosphatase 93 (34-104) U/L Total Protein 5.6 L (6.0-8.3) gm/dl Albumin 2.8 L (3.4-5.0) gm/dl Intake and Output 05/26/21 05/27/21 05/27/21 22:59 06:59 14:59 Intake Total 480 / 1877.895 301.215 / 1877.895 Output Total 60 / 721 400 / 721 Balance 420 / 1156.895 -98.785 / 1156.895 Intake: IV 360 / 1607.895 301.215 / 1607.895 Amiodarone / D5w 360 mg In 200 191.215 / 191.215 ml @ 0.5 MG/MIN 16.667 mls/hr IV .Q12H [facility] Rx#:[id number] Doxycycline Hyclate 100 mg In 110 / 220 110 / 220 Dextrose 5% 100 ml @ 50 mls/hr IV Q12H [facility] Rx#:[id number] Sodium Chloride 0.9% 1000ML 250 250 / 250 ml @ 999 mls/hr IV .Q16M [facility] Rx#:[id number] Oral 120 / 240 Output: Urine Amount (Catheter) 60 / 720 400 / 720 Villegas/Indwelling 60 / 720 400 / 720 Other: Weight 61 kg Weight Measurement Method Built in [facility] Diagnostic Findings Telemetry: Atrial fibrillation, heart rate averaging around 120 bpm for the last 24 hours. PG Care Time/CCT Total # of Minutes Spent Total Time Spent with Patient: Total time spent is greater than 50% in coordination of care (as documented) at patient's floor/unit and/or counseling patient: Coding Level of Care Code 21213 Subseq Hosp Care Lvl 3 Diagnoses Cardiac arrest I46.9 Elevated troponin R77.8 Cardiomyopathy I42.9 Cardiomyopathy type: unspecified Permanent atrial fibrillation I48.21 (1) Cardiomyopathy Cardiomyopathy type: unspecified Qualified Code(s): I42.9 - Cardiomyopathy, unspecified
[2021-05-27] MEDS ORDERED: METOPROLOL SUCC 25MG EXT REL TAB PO SCH (10:30)
[2021-05-27] MEDS: DOXYCYCLINE HYCLATE 100 MG in DEXTROSE 5% 100 ML IV SCH (11:17)
[2021-05-27] MEDS: CEFEPIME 2,000 MG in SYRINGE 0 ML IV SCH (14:00)
--- NOTE | 2021-05-27 15:27 | Hospitalist Progress Note ---
Date of Service May 27, 2021 Assessment & Plan (1) Pneumonia: Plan: CT chest on 05/26 right upper lobe consolidative airspace opacity with associated air bronchograms. Covid-19 and influenza A/B both negative. - On cefepime/doxycycline per pulmonology. Feel that with her immune suppression, she is at risk for more extended bacterial illnesses. (2) Cardiac arrest: Plan: Had V. fib arrest on the evening of 05/25 CODE [facility]UE was called and CPR was started. Received 1 shock and 1 mg of epi and achieved ROSC. Was intubated overnight on 05/25 and extubated on the morning of 05/26. - Per Dr. Daley, appears to be idiopathic, primary Vfib. -> Plan for ICD when pneumonia stabilized. (3) Ventricular fibrillation: Plan: As above (4) Permanent atrial fibrillation: Plan: Rapid afib persisted for the first 2 days of admission - likely secondary to sepsis and hypovolemia. Patient managed by Dr. Sasm (yearly visits). Now on amiodarone drip status post cardiac arrest and rates are improved in the low 100s. - Appreciate cardiology consultation - Restarted home Eliquis - Restarted Toprol-XL -> Will give second 25 mg dose this afternoon. (5) Cardiogenic shock: Plan: Now weaned off vasopressors. - Restarted Toprol-XL on 05/27. - Restart RUSSEL inhibitor when blood pressure can tolerate (6) Respiratory failure with hypoxia: Plan: Secondary to cardiogenic shock and cardiac arrest, now extubated. (7) Elevated troponin: Plan: Troponin peaked at 1.5 after cardiac arrest. This is secondary to cardiac contusion and also secondary to hypoperfusion. No urgent need for cardiac catheterization. - Outpatient f/u (8) Sepsis: Plan: Presented with fevers, leukocytosis, tachycardia, and source of infection being both pneumonia and UTI. SEPSIS, POA. (9) Urinary tract infection: Plan: Abnormal UA although without any urinary symptoms. Urine culture with Klebsiella pansens. - Abx as for PNA (10) Duodenitis: Plan: Noted on CT abdomen/pelvis from admission. She initially had nausea but no vomiting, no melena or hematemesis. Could certainly have peptic ulcer disease given long history of chronic prednisone. - Continue Protonix 40 mg IV twice daily given ongoing nausea - Monitor for any evidence of GI bleeding - No need for GI consultation or endoscopy at this point (11) Hyponatremia: Plan: Likely secondary to hypovolemia initially, possibly some SIADH from PNA. - Sodium mildly low at 132 and stable from yesterday. (12) Osteoporosis, unspecified: Plan: - Hold Home calcium carbonate-vitamin D (13) Chronic anticoagulation: Plan: - Continue Eliquis (14) Hypertension: Plan: BP today is 115/85. - Holding home diltiazem and lisinopril - Restarted metoprolol XL on 05/27 (15) Cardiomyopathy: Plan: With a history of HFrEF that had improved. Now with worsening EF as above secondary to cardiac arrest and cardiogenic shock-LVEF now 30-35%. - As above (16) Rheumatoid arthritis: Plan: Managed with methotrexate 10 mg, etanercept, & chronic prednisone. - Hold home methotrexate and Enbrel while acutely infected - Transitioned to prednisone on 05/28 (17) Anxiety: Plan: - Continue home lorazepam as needed (18) PAD (peripheral artery disease): Plan: With a history of angioplasty and stenting in bilateral legs with vascular surgery. - Continue Plavix & statin Admission and Anticipated Discharge Date Admission Date: May 23, 2021 Subjective Doing well today. No real chest pain. No shortness of breath. Reports no fevers/chills, abdominal pain, nausea, or vomiting. Physical Exam Constitutional: WD/WN, vitals as above Eyes: EOM intact bilaterally; no conjunctival abnormality ENMT: external ear and nose normal, oropharynx normal Neck: trachea midline, no thyromegaly normal visual inspection Right EJ line Respiratory: normal respiratory effort, lungs clear to auscultation no respiratory distress Cardiovascular: Rate/Rhythm: + tachycardic and + irregularly irregular Gastrointestinal (Abdomen): Inspection/Auscultation: abdomen normal to inspection; abdomen not distended Musculoskeletal: no cyanosis or clubbing, extremities motor strength 5/5 Skin: no rashes, warm and dry Neurologic: moves all extremities and awake Psychiatric: Orientation: alert, oriented to person and cooperative Results & Data Results & Data ([facility]) Vital Signs (Past 12 Hours) Vital Signs Temp Pulse Pulse Resp BP Pulse Ox 05/27/21 12:05 36.4 C L 117 H 20 118/78 94 05/27/21 08:00 36.4 C L 124 H 128 H 18 119/66 95 PG Care Time/CCT Total # of Minutes Spent Total Time Spent with Patient: Total time spent is greater than 50% in coordination of care (as documented) at patient's floor/unit and/or counseling patient: Coding Level of Care Code 65138 Subseq Hosp Care Lvl 3 Diagnoses Cardiac arrest I46.9 Ventricular fibrillation I49.01 Cardiogenic shock R57.0 Respiratory failure with hypoxia J96.91 Elevated troponin R77.8 Sepsis A41.9 Pneumonia J18.9 Laterality: right Lung location: upper lobe of lung Pneumonia type: due to unspecified organism Urinary tract infection N39.0 Hematuria presence: without hematuria Urinary tract infection type: site unspecified Permanent atrial fibrillation I48.21 Duodenitis K29.80 Hyponatremia E87.1 Osteoporosis, unspecified M81.0 Osteoporosis type: age-related Presence of current pathological fracture: without current pathological fracture Chronic anticoagulation Z79.01 Hypertension I10 Hypertension type: essential hypertension Cardiomyopathy I42.9 Cardiomyopathy type: unspecified Rheumatoid arthritis M05.79 Rheumatoid arthritis location: multiple sites Rheumatoid factor presence: with rheumatoid factor Anxiety F41.9 PAD (peripheral artery disease) I73.9 (1) Pneumonia Laterality: right Lung location: upper lobe of lung Pneumonia type: due to unspecified organism Qualified Code(s): J18.9 - Pneumonia, unspecified organism (2) Urinary tract infection Hematuria presence: without hematuria Urinary tract infection type: site unspecified Qualified Code(s): N39.0 - Urinary tract infection, site not s pecified (3) Osteoporosis, unspecified Osteoporosis type: age-related Presence of current pathological fracture: without current pathological fracture Qualified Code(s): M81.0 - Age-related osteoporosis without current pathological fracture (4) Hypertension Hypertension type: essential hypertension Qualified Code(s): I10 - Essential (primary) hypertension (5) Cardiomyopathy Cardiomyopathy type: unspecified Qualified Code(s): I42.9 - Cardiomyopathy, unspecified (6) Rheumatoid arthritis Rheumatoid arthritis location: multiple sites Rheumatoid factor presence: with rheumatoid factor Qualified Code(s): M05.79 - Rheumatoid arthritis with rheumatoid factor of multiple sites without organ or systems involvement
[2021-05-27] MEDS ORDERED: METOPROLOL SUCC 25MG EXT REL TAB PO STA (15:40)
[2021-05-28] MEDS: DOXYCYCLINE HYCLATE 100 MG in DEXTROSE 5% 100 ML IV SCH ×2 (00:19→11:22)
[2021-05-28] MEDS: CEFEPIME 2,000 MG in SYRINGE 0 ML IV SCH ×2 (00:19→11:22)
[2021-05-28] MEDS: AMIODARONE / D5W 360 MG/200 ML BAG IV SCH ×2 (02:11→14:13)
[2021-05-28 05:40] LABS: Hematocrit (blood only) 34.3 % (37-47); Hemoglobin 11.4 g/dL (12.0-16.0); Mean Corpuscular Hemoglobin 32.4 pg (25-34); Mean Corpuscular Hgb Conc 33.2 g/dL (32-36); Mean Corpuscular Volume 97.4 fL (80-100); Mean Platelet Volume 10.2 fL (7.4-10.4); Nucleated RBC # (auto) 0.09 K/uL (0-0); Nucleated RBC % (auto) 0.4 %; Platelet Count 340 K/uL (130-400); RDW Standard Deviation 53.2 fL (36.4-46.3); Red Blood Count 3.52 M/uL (4.2-5.4); White Blood Count 19.85 K/uL (4.8-10.8)
[2021-05-28 06:11] LABS: BUN Creatinine Ratio 33.3 (10-20); Calcium 8.4 mg/dl (8.5-10.1); Creatinine Clr Calc Pharmacy 51.5 ml/min; Est GFR (African American) 83.2 ml/min; Est GFR (Non-African American) 71.8 ml/min; Phosphorus 2.5 mg/dl (2.5-4.9); Potassium 3.7 mmol/L (3.5-5.1)
--- NOTE | 2021-05-28 07:02 | Cardiology Progress Note ---
Date of Service May 28, 2021 Assessment & Plan (1) Cardiac arrest: (2) Cardiomyopathy: (3) Elevated troponin: (4) Permanent atrial fibrillation: Plan: ASSESSMENT/PLAN: 1. Cardiac arrest/ventricular fibrillation: She had spontaneous sudden onset of ventricular fibrillation without bradycardia or ventricular ectopy. This is unusual, it suggests a primary arrhythmic event and I think we will require an ICD to prevent future recurrences. We can do that when she is medically stable but she seems to be doing quite well. Perhaps early this coming week, I will discuss with Dr. Sams regarding timing. I discussed ICD with the patient who is agreeable, but not the family. She is on intravenous amiodarone, we can continue it for now, perhaps until an ICD is in place. 2. Cardiomyopathy: Her left ventricular function is borderline for ICD placement for primary prevention however for secondary prevention this is not an issue. Her cardiomyopathy could in part be due to rapid atrial fibrillation and we need to control her heart rate. 3. Elevated troponin: The rapid rise and fall of her troponin is most consistent with demand ischemia from the arrest not from a coronary event. I do not think further evaluation is indicated at this time. 4. Permanent atrial fibrillation: Her heart rate remains elevated despite intravenous amiodarone and additional metoprolol succinate yesterday (50 mg total), we need additional for rate control especially with her cardiomyopathy. Beta-blockers are beneficial both for her heart rate and for her cardiomyopathy as well as a beneficial effect for ventricular arrhythmias. I am going to increase metoprolol succinate to 75 mg today. Her blood pressure has not dropped on moderate doses of beta-blockade. If we cannot get heart rate control I would add digoxin. I would like to avoid intravenous diltiazem although we could consider that. Admission and Anticipated Discharge Date Admission Date: May 23, 2021 Subjective She is complaining of feeling tired today, possibly short of breath, but appears relatively comfortable. Physical Exam Physical Exam: Constitutional: Alert, cooperative and in no distress. HEENT: Unremarkable Neck: No jugular venous distention, carotid pulses are irregular but otherwise normal and equal bilaterally without bruits. Pulmonary: Clear to auscultation bilaterally. Cardiac: Irregular rhythm with no murmur, gallop or rub. She seems to have a ventricular heave. Abdomen: Soft, nontender with normal bowel sounds. Extremities: No edema. Distal pulses intact. Neurologic: No focal findings. Gait was not tested. Skin: No rash, ecchymoses or petechiae. Results & Data ([facility]) Vital Signs (Past 12 Hours) Vital Signs Temp Pulse Resp BP Pulse Ox 05/28/21 04:29 36.7 C 05/28/21 04:24 108 H 24 126/97 94 05/27/21 23:52 37 C 120 H 16 131/79 98 05/27/21 19:53 37.2 C 112 H 20 112/88 97 Laboratory Results CBC 05/28/21 Range/Units 04:39 WBC 19.85 H (4.8-10.8) K/uL RBC 3.52 L (4.2-5.4) M/uL Hgb 11.4 L (12.0-16.0) g/dL Hct 34.3 L (37-47) % Plt Count 340 (130-400) K/uL Comprehensive Metabolic Panel 05/28/21 Range/Units 04:39 Sodium 131 L (136-145) mmol/L Potassium 3.7 (3.5-5.1) mmol/L Chloride 99 (98-107) mmol/L Carbon Dioxide 24 (21-32) mmol/L BUN 26 H (6-23) mg/dl Creatinine 0.78 (0.6-1.2) mg/dl Glucose 142 H (70-99(Fasting)) mg/dl Calcium 8.4 L (8.5-10.1) mg/dl Intake and Output 05/27/21 05/28/21 05/28/21 22:59 06:59 14:59 Intake Total 310 / 1170 Output Total 450 / 850 Balance -140 / 320 Intake: IV 310 / 620 Amiodarone / D5w 360 mg In 200 200 / 400 ml @ 0.5 MG/MIN 16.667 mls/hr IV .Q12H [facility] Rx#:[id number] Doxycycline Hyclate 100 mg In 110 / 220 Dextrose 5% 100 ml @ 50 mls/hr IV Q12H [facility] Rx#:[id number] Output: Urine Amount (Catheter) 450 / 850 Villegas/Indwelling 450 / 850 Other: Weight 63.3 kg Weight Measurement Method Built in [facility] Care Time/CCT Total # of Minutes Spent Total Time Spent with Patient: Total time spent is greater than 50% in coordination of care (as documented) at patient's floor/unit and/or counseling patient: Coding Level of Care Code 41257 Subseq Hosp Care Lvl 2 Diagnoses Cardiac arrest I46.9 Cardiomyopathy I42.9 Cardiomyopathy type: unspecified Elevated troponin R77.8 Permanent atrial fibrillation I48.21 (1) Cardiomyopathy Cardiomyopathy type: unspecified Qualified Code(s): I42.9 - Cardiomyopathy, unspecified
[2021-05-28] MEDS: APIXABAN 5 MG TABLET PO SCH ×2 (08:04→21:07)
[2021-05-28] MEDS: PANTOprazole 40 MG in SYRINGE 0 ML IV SCH ×2 (08:04→21:08)
[2021-05-28] MEDS: FOLIC ACID 1 MG TAB PO SCH (08:05)
[2021-05-28] MEDS: predniSONE 50 MG TAB PO SCH (08:05)
[2021-05-28] MEDS: ROSUVASTATIN CALCIUM 5 MG TAB PO SCH (08:05)
[2021-05-28] MEDS: CLOPIDOGREL BISULFATE 75 MG TAB PO SCH (08:05)
[2021-05-28] MEDS ORDERED: METOPROLOL SUCC 50MG EXT REL TAB PO SCH (09:00)
[2021-05-28] MEDS ORDERED: METOPROLOL SUCC 25MG EXT REL TAB PO SCH (09:00)
[2021-05-28] MEDS ORDERED: ACETAMINOPHEN 500 MG TAB PO ONE (09:45)
--- NOTE | 2021-05-28 11:06 | CT Scan Report ---
CT chest diagnostic wo con CLINICAL HISTORY: Pneumonia, hypoxemia, inc RR TECHNIQUE: Multidetector row helical CT of the chest was performed. Coronal and sagittal reformations were obtained. Automated dose lowering techniques and/or adjustment according to patient size were u tilized for this exam. Comparison: Comparison is made to CT chest 05/26/2021 FINDINGS: Lungs and pleura: There are small bilateral pleural effusions. There is an airspace opacity in the ri ght upper lobe. Postsurgical changes are seen in the right apex. Bilateral atelectasis is seen. Heart and pericardium: Marked cardiomegaly is seen. Vessels: Severe atherosclerotic changes in the aorta and coronary arteries. Mediastinum and vivek: Unremarkable. Chest wall and lower neck: Unremarkable. Abdomen: A hiatal hernia is seen. A cyst is seen in the liver. Bones: Degenerative changes in the thoracic spine. IMPRESSION: 1. Right upper lobe airspace opacity compatible with pneumonia, unchanged. 2. Small bilateral pleural effusions with underlying atelectasis, increased from prior exam. ACT 112: Negative or not required by law. Electronically signed by: Pk Cross M.D. 05/28/2021 11:05 AM
[2021-05-28] MEDS: LIDOCAINE 5% 1 PATCH TD SCH (11:21)
--- NOTE | 2021-05-28 11:33 | Hospitalist Progress Note ---
Date of Service May 28, 2021 Assessment & Plan (1) Pneumonia: Plan: CT chest on 05/26 right upper lobe consolidative airspace opacity with associated air bronchograms. Covid-19 and influenza A/B both negative. - On cefepime/doxycycline per pulmonology. Feel that with her immune suppression, she is at risk for more extended bacterial illnesses. - Repeated CT chest on 05/28 as she had faster respiratory rate and continue hypoxemia. No change in appearance. (2) Cardiac arrest: Plan: Had V. fib arrest on the evening of 05/25 CODE BLUE was called and CPR was sta rted. Received 1 shock and 1 mg of epi and achieved ROSC. Was intubated overnight on 05/25 and extubated on the morning of 05/26. - Per Dr. Daley, appears to be idiopathic, primary Vfib. -> Plan for ICD when pneumonia stabilized. (3) Ventricular fibrillation: Plan: As above (4) Permanent atrial fibrillation: Plan: Rapid afib persisted for the first 2 days of admission - likely secondary to sepsis and hypovolemia. Patient managed by Dr. Sams (yearly visits). Now on amiodarone drip status post cardiac arrest and rates are improved in the low 100s. - Appreciate cardiology consultation - Restarted home Eliquis - Restarted Toprol-XL -> Increased to 75 mg on 05/28 by cardiology. (5) Cardiogenic shock: Plan: Now weaned off vasopressors. - Restarted Toprol-XL on 05/27. Increased to 75 mg on 05/28. - Restart RUSSEL inhibitor when blood pressure can tolerate (6) Respiratory failure with hypoxia: Plan: Secondary to cardiogenic shock and cardiac arrest, now extubated. (7) Elevated troponin: Plan: Troponin peaked at 1.5 after cardiac arrest. This is secondary to cardiac contusion and also secondary to hypoperfusion. No urgent need for cardiac catheterization. - Outpatient f/u (8) Sepsis: Plan: Presented with fevers, leukocytosis, tachycardia, and source of infection being both pneumonia and UTI. SEPSIS, POA. (9) Urinary tract infection: Plan: Abnormal UA although without any urinary symptoms. Urine culture with Klebsiella pansens. - Abx as for PNA (10) Duodenitis: Plan: Noted on CT abdomen/pelvis from admission. She initially had nausea but no vomiting, no melena or hematemesis. Could certainly have peptic ulcer disease given long history of chronic prednisone. - Continue Protonix 40 mg IV twice daily given ongoing nausea - Monitor for any evidence of GI bleeding - No need for GI consultation or endoscopy at this point (11) Hyponatremia: Plan: Likely secondary to hypovolemia initially, possibly some SIADH from PNA. - Sodium mildly low at 131 and stable from yesterday. (12) Osteoporosis, unspecified: Plan: - Hold Home calcium carbonate-vitamin D (13) Chronic anticoagulation: Plan: - Continue Eliquis (14) Hypertension: Plan: BP today is 125/100. - Holding home diltiazem and lisinopril - Restarted metoprolol XL on 05/27; increased as above (15) Cardiomyopathy: Plan: With a history of HFrEF that had improved. Now with worsening EF as above secondary to cardiac arrest and cardiogenic shock-LVEF now 30-35%. - As above (16) Rheumatoid arthritis: Plan: Managed with methotrexate 10 mg, etanercept, & chronic prednisone. - Hold home methotrexate and Enbrel while acutely infected - Transitioned to prednisone on 05/28 (17) Anxiety: Plan: - Continue home lorazepam as needed (18) PAD (peripheral artery disease): Plan: With a history of angioplasty and stenting in bilateral legs with vascular surgery. - Continue Plavix & statin Admission and Anticipated Discharge Date Admission Date: May 23, 2021 Subjective Worse today with faster respirations and just feeling more tired. Reports no fevers/chills, chest pain, abdominal pain, nausea, or vomiting. Physical Exam Constitutional: WD/WN, vitals as above Eyes: EOM intact bilaterally; no conjunctival abnormality ENMT: external ear and nose normal, oropharynx normal Neck: trachea midline, no thyromegaly normal visual inspection Respiratory: + labored breathing, + retractions and + tachypneic; no respiratory distress Cardiovascular: Rate/Rhythm: + tachycardic and + irregularly irregular Gastrointestinal (Abdomen): Inspection/Auscultation: abdomen normal to inspection; abdomen not distended Musculoskeletal: no cyanosis or clubbing, extremities motor strength 5/5 Skin: no rashes, warm and dry Neurologic: moves all extremities and awake Psychiatric: Orientation: alert, oriented to person and cooperative Results & Data Results & Data ([facility]) Vital Signs (Past 12 Hours) Vital Signs Temp Pulse Pulse Resp BP Pulse Ox 05/28/21 08:00 124 H 05/28/21 04:29 36.7 C 05/28/21 04:24 108 H 24 126/97 94 05/27/21 23:52 37 C 120 H 16 131/79 98 PG Care Time/CCT Total # of Minutes Spent Total Time Spent with Patient: Total time spent is greater than 50% in coordination of care (as documented) at patient's floor/unit and/or counseling patient: Coding Level of Care Code 50311 Subseq Hosp Care Lvl 3 Diagnoses Pneumonia J18.9 Laterality: right Lung location: upper lobe of lung Pneumonia type: due to unspecified organism Cardiac arrest I46.9 Ventricular fibrillation I49.01 Permanent atrial fibrillation I48.21 Cardiogenic shock R57.0 Respiratory failure with hypoxia J96.91 Elevated troponin R77.8 Sepsis A41.9 Urinary tract infection N39.0 Hematuria presence: without hematuria Urinary tract infection type: site unspecified Duodenitis K29.80 Hyponatremia E87.1 Osteoporosis, unspecified M81.0 Osteoporosis type: age-related Presence of current pathological fracture: without current pathological fracture Chronic anticoagulation Z79.01 Hypertension I10 Hypertension type: essential hypertension Cardiomyopathy I42.9 Cardiomyopathy type: unspecified Rheumatoid arthritis M05.79 Rheumatoid arthritis location: multiple sites Rheumatoid factor presence: with rheumatoid factor Anxiety F41.9 PAD (peripheral artery disease) I73.9 (1) Pneumonia Laterality: right Lung location: upper lobe of lung Pneumonia type: due to unspecified organism Qualified Code(s): J18.9 - Pneumonia, unspecified organism (2) Urinary tract infection Hematuria presence: without hematuria Urinary tract infection type: site unspecified Qualified Code(s): N39.0 - Urinary tract infection, site not specified (3) Osteoporosis, unspecified Osteoporosis type: age-related Presence of current pathological fracture: without current pathological fracture Qualified Code(s): M81.0 - Age-related osteoporosis without current pathological fracture (4) Hypertension Hypertension type: essential hypertension Qualified Code(s): I10 - Essential (primary) hypertension (5) Cardiomyopathy Cardiomyopathy type: unspecified Qualified Code(s): I42.9 - Cardiomyopathy, unspecified (6) Rheumatoid arthritis Rheumatoid arthritis location: multiple sites Rheumatoid factor presence: with rheumatoid factor Qualified Code(s): M05.79 - Rheumatoid arthritis with rheumatoid factor of multiple sites without organ or systems involvement
[2021-05-28] MEDS: ACETAMINOPHEN 500 MG TAB PO SCH ×2 (13:16→21:06)
[2021-05-28] MEDS ORDERED: METOPROLOL SUCC 25MG EXT REL TAB PO STA (13:58)
[2021-05-29] MEDS: DOXYCYCLINE HYCLATE 100 MG in DEXTROSE 5% 100 ML IV SCH ×2 (00:38→11:47)
[2021-05-29] MEDS: CEFEPIME 2,000 MG in SYRINGE 0 ML IV SCH ×2 (00:38→11:48)
[2021-05-29] MEDS: AMIODARONE / D5W 360 MG/200 ML BAG IV SCH ×2 (01:51→13:21)
[2021-05-29 05:04] LABS: Hematocrit (blood only) 35.4 % (37-47); Hemoglobin 11.5 g/dL (12.0-16.0); Mean Corpuscular Hemoglobin 31.9 pg (25-34); Mean Corpuscular Hgb Conc 32.5 g/dL (32-36); Mean Corpuscular Volume 98.3 fL (80-100); Mean Platelet Volume 9.8 fL (7.4-10.4); Nucleated RBC # (auto) 0.07 K/uL (0-0); Nucleated RBC % (auto) 0.4 %; Platelet Count 388 K/uL (130-400); RDW Coefficient of Variation 15.2 % (11.5-14.5); RDW Standard Deviation 53.9 fL (36.4-46.3); White Blood Count 19.07 K/uL (4.8-10.8)
[2021-05-29 05:35] LABS: BUN Creatinine Ratio 32.9 (10-20); Calcium 8.4 mg/dl (8.5-10.1); Creatinine Clr Calc Pharmacy 47.2 ml/min; Est GFR (Non-African American) 64.7 ml/min; Potassium 4.1 mmol/L (3.5-5.1)
[2021-05-29] MEDS: APIXABAN 5 MG TABLET PO SCH ×2 (08:10→20:22)
[2021-05-29] MEDS: predniSONE 50 MG TAB PO SCH (08:10)
[2021-05-29] MEDS: CLOPIDOGREL BISULFATE 75 MG TAB PO SCH (08:10)
[2021-05-29] MEDS: PANTOprazole 40 MG in SYRINGE 0 ML IV SCH (08:10)
[2021-05-29] MEDS: LIDOCAINE 5% 1 PATCH TD SCH (08:11)
[2021-05-29] MEDS: FOLIC ACID 1 MG TAB PO SCH (08:11)
[2021-05-29] MEDS: ROSUVASTATIN CALCIUM 5 MG TAB PO SCH (08:11)
[2021-05-29] MEDS: ACETAMINOPHEN 500 MG TAB PO SCH ×3 (08:11→20:22)
[2021-05-29] MEDS: METOPROLOL SUCC 50MG EXT REL TAB PO SCH (08:12)
--- NOTE | 2021-05-29 11:44 | Hospitalist Progress Note ---
Date of Service May 29, 2021 Assessment & Plan (1) Pneumonia: Plan: CT chest on 05/26 right upper lobe consolidative airspace opacity with associated air bronchograms. Covid-19 and influenza A/B both negative. - On cefepime/doxycycline per pulmonology. Feel that with her immune suppression, she is at risk for more extended bacterial illnesses. - Repeated CT chest on 05/28 as she had faster respiratory rate and continue hypoxemia. No change in appearance. -> Some better today. Still without fever. WBC stable. Possibly some of the elevation is related to her stress-dose steroids, but we are actually going down on these, so the increase wouldn't make sense. Discussed with pulm on 05/28 with no indication that we should change course for now. (2) Cardiac arrest: Plan: Had V. fib arrest on the evening of 05/25 CODE BLUE was called and CPR was started. Received 1 shock and 1 mg of epi and achieved ROSC. Was intubated overnight on 05/25 and extubated on the morning of 05/26. - Per Dr. Daley, appears to be idiopathic, primary Vfib. -> Plan for ICD when pneumonia stabilized. Reached out to Dr. Sams today; waiting to hear back on timing. (3) Permanent atrial fibrillation: Plan: Rapid afib persisted for the first 2 days of admission - likely secondary to sepsis and hypovolemia. Patient managed by Dr. Sams (yearly visits). Now on amiodarone drip status post cardiac arrest and rates are improved in the low 100s. - Appreciate cardiology consultation - Restarted home Eliquis - Restarted Toprol-XL -> Increased to 75 mg on 05/28; now 100 mg today. Asking for input today as HR still largely > 100 bpm. (4) Ventricular fibrillation: Plan: As above (5) Cardiogenic shock: Plan: Now weaned off vasopressors. - Restarted Toprol-XL on 05/27. Increased to 100 mg on 05/29. - Restart RUSSEL inhibitor when blood pressure can tolerate (6) Respiratory failure with hypoxia: Plan: Secondary to cardiogenic shock and cardiac arrest, now extubated. (7) Elevated troponin: Plan: Troponin peaked at 1.5 after cardiac arrest. This is secondary to cardiac contusion and also secondary to hypoperfusion. No urgent need for cardiac catheterization. - Outpatient f/u (8) Sepsis: Plan: Presented with fevers, leukocytosis, tachycardia, and source of infection being both pneumonia and UTI. SEPSIS, POA. (9) Urinary tract infection: Plan: Abnormal UA although without any urinary symptoms. Urine culture with Klebsiella pansens. - Abx as for PNA (10) Duodenitis: Plan: Noted on CT abdomen/pelvis from admission. She initially had nausea but no vomiting, no melena or hematemesis. Could certainly have peptic ulcer disease given long history of chronic prednisone. - Continue Protonix 40 mg PO BID - Monitor for any evidence of GI bleeding - No need for GI consultation or endoscopy at this point (11) Hyponatremia: Plan: Likely secondary to hypovolemia initially, possibly some SIADH from PNA. - Sodium mildly low at 132 and stable from yesterday. (12) Osteoporosis, unspecified: Plan: - Hold home calcium carbonate-vitamin D (13) Chronic anticoagulation: Plan: - Continue Eliquis (14) Hypertension: Plan: BP today is 115/90. - Holding home diltiazem and lisinopril - Restarted metoprolol XL on 05/27; increased as above (15) Cardiomyopathy: Plan: With a history of HFrEF that had improved. Now with worsening EF as above secondary to cardiac arrest and cardiogenic shock-LVEF now 30-35%. - As above (16) Rheumatoid arthritis: Plan: Managed with methotrexate 10 mg, etanercept, & chronic prednisone. - Hold home methotrexate and Enbrel while acutely infected - Transitioned to prednisone on 05/28; will decrease for tomorrow to 40 mg. (17) Anxiety: Plan: - Continue home lorazepam as needed (18) PAD (peripheral artery disease): Plan: With a history of angioplasty and stenting in bilateral legs with vascular surgery. - Continue Plavix & statin Admission and Anticipated Discharge Date Admission Date: May 23, 2021 Subjective Clinically better today. Less shortness of breath, no increased work of breathing. Still with some O2 requirement, but not worse. HR remains elevated, though slowly trending the right direction. Telemetry indicates still mostly >100 bpm, but at least in the 100 - 110 range rather than 120 - 130 from yesterday. Reports no fevers/chills, chest pain, abdominal pain, nausea, or vomiting. Physical Exam Constitutional: WD/WN, vitals as above Eyes: EOM intact bilaterally; no conjunctival abnormality ENMT: external ear and nose normal, oropharynx normal Neck: trachea midline, no thyromegaly normal visual inspection Respiratory: + labored breathing; no respiratory distress Auscultation: + rhonchi Cardiovascular: Rate/Rhythm: + tachycardic and + irregularly irregular Gastrointestinal (Abdomen): Inspection/Auscultation: abdomen normal to inspection; abdomen not distended Musculoskeletal: no cyanosis or clubbing, extremities motor strength 5/5 Skin: no rashes, warm and dry Neurologic: moves all extremities and awake Psychiatric: Orientation: alert, oriented to person and cooperative Results & Data Results & Data ([facility]) Vital Signs (Past 12 Hours) Vital Signs Temp Pulse Pulse Resp BP Pulse Ox 05/29/21 11:18 36.4 C L 103 H 22 116/90 99 05/29/21 08:23 96 H 05/29/21 07:00 34.6 C L 130 H 26 H 127/90 96 05/29/21 00:03 101 H 05/28/21 23:54 36.7 C 05/28/21 23:52 124 H 05/28/21 23:50 106 H 19 05/28/21 23:40 106 H 16 PG Care Time/CCT Total # of Minutes Spent Total Time Spent with Patient: Total time spent is greater than 50% in coordination of care (as documented) at patient's floor/unit and/or counseling patient: Coding Level of Care Code 26054 Subseq Hosp Care Lvl 3 Diagnoses Pneumonia J18.9 Laterality: right Lung location: upper lobe of lung Pneumonia type: due to unspecified organism Cardiac arrest I46.9 Ventricular fibrillation I49.01 Permanent atrial fibrillation I48.21 Cardiogenic shock R57.0 Respiratory failure with hypoxia J96.91 Elevated troponin R77.8 Sepsis A41.9 Urinary tract infection N39.0 Hematuria presence: without hematuria Urinary tract infection type: site unspecified Duodenitis K29.80 Hyponatremia E87.1 Osteoporosis, unspecified M81.0 Osteoporosis type: age-related Presence of current pathological fracture: without current pathological fracture Chronic anticoagulation Z79.01 Hypertension I10 Hypertension type: essential hypertension Cardiomyopathy I42.9 Cardiomyopathy type: unspecified Rheumatoid arthritis M05.79 Rheumatoid arthritis location: multiple sites Rheumatoid factor presence: with rheumatoid factor Anxiety F41.9 PAD (peripheral artery disease) I73.9 (1) Urinary tract infection Hematuria presence: without hematuria Urinary tract infection type: site unspecified Qualified Code(s): N39.0 - Urinary tract infection, site not specified (2) Rheumatoid arthritis Rheumatoid arthritis location: multiple sites Rheumatoid factor presence: with rheumatoid factor Qualified Code(s): M05.79 - Rheumatoid arthritis with rheumatoid factor of multiple sites without organ or systems involvement (3) Osteoporosis, unspecified Osteoporosis type: age-related Presence of current pathological fracture: without current pathological fracture Qualified Code(s): M81.0 - Age-related osteoporosis without current pathological fracture (4) Hypertension Hypertension type: essential hypertension Qualified Code(s): I10 - Essential (primary) hypertension (5) Cardiomyopathy Cardiomyopathy type: unspecified Qualified Code(s): I42.9 - Cardiomyopathy, unspecified (6) Pneumonia Laterality: right Lung location: upper lobe of lung Pneumonia type: due to unspecified organism Qualified Code(s): J18.9 - Pneumonia, unspecified organism
--- NOTE | 2021-05-29 13:29 | Cardiology Progress Note ---
Date of Service May 29, 2021 Assessment & Plan (1) Cardiac arrest: (2) Cardiomyopathy: (3) Elevated troponin: (4) Permanent atrial fibrillation: Plan: ASSESSMENT/PLAN: 1. Cardiac arrest/ventricular fibrillation: She had spontaneous sudden onset of ventricular fibrillation without bradycardia or ventricular ectopy. This is unusual, it suggests a primary arrhythmic event and I think we will require an ICD to prevent future recurrences. We can do that when she is medically stable but she seems to be doing quite well. Perhaps early this coming week, I will discuss with Dr. Sams regarding timing. I discussed ICD with the patient who is agreeable, but not the family. She is on intravenous amiodarone, we can continue it for now, perhaps until an ICD is in place. 2. Cardiomyopathy: Her left ventricular function is borderline for ICD placement for primary prevention however for secondary prevention this is not an issue. Her cardiomyopathy could in part be due to rapid atrial fibrillation and we need to control her heart rate. 3. Elevated troponin: The rapid rise and fall of her troponin is most consistent with demand ischemia from the arrest not from a coronary event. I do not think further evaluation is indicated at this time. 4. Permanent atrial fibrillation: Her heart rate remains elevated despite intravenous amiodarone and additional metoprolol succinate yesterday (50 mg total), we need additional for rate control especially with her cardiomyopathy. Beta-blockers are beneficial both for her heart rate and for her cardiomyopathy as well as a beneficial effect for ventricular arrhythmias. I am going to increase metoprolol succinate to 75 mg today. Her blood pressure has not dropped on moderate doses of beta-blockade. If we cannot get heart rate control I would add digoxin. I would like to avoid intravenous diltiazem although we could consider that. Admission and Anticipated Discharge Date Admission Date: May 23, 2021 Results & Data ([facility]) Vital Signs (Past 12 Hours) Vital Signs Temp Pulse Pulse Resp BP Pulse Ox 05/29/21 11:18 36.4 C L 103 H 22 116/90 99 05/29/21 08:23 96 H 05/29/21 07:00 34.6 C L 130 H 26 H 127/90 96 PG Care Time/CCT Total # of Minutes Spent Total Time Spent with Patient: Total time spent is greater than 50% in coordination of care (as documented) at patient's floor/unit and/or counseling patient: Coding Diagnoses Cardiac arrest I46.9 Cardiomyopathy I42.9 Cardiomyopathy type: unspecified Elevated troponin R77.8 Permanent atrial fibrillation I48.21 (1) Cardiomyopathy Cardiomyopathy type: unspecified Qualified Code(s): I42.9 - Cardiomyopathy, unspecified
--- NOTE | 2021-05-29 17:44 | Cardiology Progress Note ---
Date of Service May 29, 2021 Assessment & Plan (1) Cardiac arrest: (2) Cardiomyopathy: (3) Elevated troponin: (4) Permanent atrial fibrillation: Plan: ASSESSMENT/PLAN: 1. Cardiac arrest/ventricular fibrillation: Continuing on amiodarone. Will stop IV and convert to PO. Likely discontinue when ICD in place. Plan ICD day prior to anticipated discharge. 2. Cardiomyopathy: Reduced on last evaluation. Likely related to her acute illness/arrest. Will continue metoprolol. Appears well-compensated. Consider limited re-evaluation prior to d/c 3. Elevated troponin: The rapid rise and fall of her troponin is most consistent with demand ischemia from the arrest not from a coronary event. I do not think further evaluation is indicated at this time. 4. Permanent atrial fibrillation: Mildly elevated heart rates, but not alarmingly so given her condition. No symptoms. Her outpatient dose of metoprolol succinate was 100mg daily. She received this dose today. Will give an extra 25mg tonight . Continue oral amiodarone. I expect her heart rates to improve as her clinical condition improves. I don't think there's any need for aggressive intervention currently. Will need to hold apixaban one day prior to ICD implant. Admission and Anticipated Discharge Date Admission Date: May 23, 2021 Subjective This afternoon she claims to be feeling well. No dyspnea. Rib pain improved with topical lidocaine. Tired after eating. Not ambulatory yet. Review of Systems Review of Systems: per HPI Physical Exam Physical Exam: Alert. Answered all questions appropriately Sclerae anicteric Normal respiratory effort Pulse irregular. No edema Results & Data ([facility]) Vital Signs (Past 12 Hours) Vital Signs Temp Pulse Pulse Resp BP Pulse Ox 05/29/21 15:28 36.6 C 107 H 24 109/84 93 05/29/21 11:18 36.4 C L 103 H 22 116/90 99 05/29/21 08:23 96 H 05/29/21 07:00 34.6 C L 130 H 26 H 127/90 96 Laboratory Results Abnormal Lab Results 05/29/21 05/29/21 05/29/21 04:47 04:47 04:47 WBC 19.07 H RBC 3.60 L Hgb 11.5 L Hct 35.4 L MCV 98.3 MCH 31.9 MCHC 32.5 RDW Std Deviation 53.9 H RDW Coeff of Libra 15.2 H Plt Count 388 MPV 9.8 Absolute Nucleated RBC 0.07 H Nucleated RBC % (auto) 0.4 Sodium 132 L Potassium 4.1 Chloride 101 Carbon Dioxide 24 Anion Gap 7 BUN 28 H Creatinine 0.85 Est Cr Clr Drug Dosing 47.2 Est GFR ( Amer) 75.0 Est GFR (Non-Af Amer) 64.7 BUN/Creatinine Ratio 32.9 H Glucose 145 H Calcium 8.4 L Magnesium 2.0 B-Natriuretic Peptide 2089 H Procalcitonin 05/29/21 04:47 WBC RBC Hgb Hct MCV MCH MCHC RDW Std Deviation RDW Coeff of Libra Plt Count MPV Absolute Nucleated RBC Nucleated RBC % (auto) Sodium Potassium Chloride Carbon Dioxide Anion Gap BUN Creatinine Est Cr Clr Drug Dosing Est GFR ( Amer) Est GFR (Non-Af Amer) BUN/Creatinine Ratio Glucose Calcium Magnesium B-Natriuretic Peptide Procalcitonin 0.41 PG Care Time/CCT Total # of Minutes Spent Total Time Spent with Patient: Total time spent is greater than 50% in coordination of care (as documented) at patient's floor/unit and/or counseling patient: Coding Level of Care Code 89564 Subseq Hosp Care Lvl 3 Diagnoses Cardiac arrest I46.9 Cardiomyopathy I42.9 Cardiomyopathy type: unspecified Elevated troponin R77.8 Permanent atrial fibrillation I48.21 (1) Cardiomyopathy Cardiomyopathy type: unspecified Qualified Code(s): I42.9 - Cardiomyopathy, unspecified
[2021-05-29] MEDS ORDERED: METOPROLOL SUCC 25MG EXT REL TAB PO ONE (17:46)
[2021-05-29] MEDS: AMIODARONE 200 MG TAB PO SCH (20:21)
[2021-05-29] MEDS: PANTOprazole 40 MG TAB PO SCH (20:23)
--- NOTE | 2021-05-29 21:28 | Electrocardiogram Report ---
Test Reason : Blood Pressure : / mmHG Vent. Rate : 113 BPM Atrial Rate : 115 BPM P-R Int : 000 ms QRS Dur : 088 ms QT Int : 294 ms P-R-T Axes : 000 012 167 degrees QTc Int : 403 ms Atrial fibrillation with rapid ventricular response Nonspecific ST and T wave abnormality Abnormal ECG When compared with ECG of 26-MAY-2020 09:21, T wave inversion no longer evident in Anterior leads Confirmed by Alexander Daley ([id number]) on 05/29/2021 9:28:10 PM Referred By: Rd Madden Confirmed By:Alexander Daley
[2021-05-30] MEDS: DOXYCYCLINE HYCLATE 100 MG in DEXTROSE 5% 100 ML IV SCH ×3 (00:18→23:56)
[2021-05-30] MEDS: CEFEPIME 2,000 MG in SYRINGE 0 ML IV SCH ×3 (00:19→23:56)
[2021-05-30 05:10] LABS: Hematocrit (blood only) 36.9 % (37-47); Hemoglobin 12.4 g/dL (12.0-16.0); Mean Corpuscular Hemoglobin 32.6 pg (25-34); Mean Corpuscular Hgb Conc 33.6 g/dL (32-36); Mean Corpuscular Volume 97.1 fL (80-100); Mean Platelet Volume 9.9 fL (7.4-10.4); Nucleated RBC # (auto) 0.06 K/uL (0-0); Nucleated RBC % (auto) 0.3 %; Platelet Count 444 K/uL (130-400); RDW Coefficient of Variation 15.1 % (11.5-14.5); RDW Standard Deviation 53.2 fL (36.4-46.3); White Blood Count 20.36 K/uL (4.8-10.8)
[2021-05-30 05:32] LABS: BUN Creatinine Ratio 35.6 (10-20); Calcium 8.4 mg/dl (8.5-10.1); Creatinine Clr Calc Pharmacy 46.1 ml/min; Est GFR (African American) 72.9 ml/min; Est GFR (Non-African American) 62.9 ml/min; Potassium 4.1 mmol/L (3.5-5.1)
[2021-05-30] MEDS: APIXABAN 5 MG TABLET PO SCH ×2 (08:18→21:57)
[2021-05-30] MEDS: PANTOprazole 40 MG TAB PO SCH ×2 (08:18→21:57)
[2021-05-30] MEDS: LIDOCAINE 5% 1 PATCH TD SCH (08:18)
[2021-05-30] MEDS: ACETAMINOPHEN 500 MG TAB PO SCH ×3 (08:18→21:56)
[2021-05-30] MEDS: AMIODARONE 200 MG TAB PO SCH ×2 (08:18→16:11)
[2021-05-30] MEDS: CLOPIDOGREL BISULFATE 75 MG TAB PO SCH (08:18)
[2021-05-30] MEDS: FOLIC ACID 1 MG TAB PO SCH (08:18)
[2021-05-30] MEDS: METOPROLOL SUCC 50MG EXT REL TAB PO SCH (08:19)
[2021-05-30] MEDS: ROSUVASTATIN CALCIUM 5 MG TAB PO SCH (08:19)
[2021-05-30] MEDS: predniSONE 10 MG TABLET PO SCH (08:35)
[2021-05-30] MEDS ORDERED: predniSONE 20 MG TAB PO SCH (09:00)
--- NOTE | 2021-05-30 10:15 | Hospitalist Progress Note ---
Date of Service May 30, 2021 Assessment & Plan (1) Pneumonia: Plan: CT chest on 05/26 right upper lobe consolidative airspace opacity with associated air bronchograms. Covid-19 and influenza A/B both negative. - On cefepime/doxycycline per pulmonology. Feel that with her immune suppression, she is at risk for more extended bacterial illnesses. - Repeated CT chest on 05/28 as she had faster respiratory rate and continue hypoxemia. No change in appearance. -> Improving, some cough with frequent speaking,WBC stable at 20 and increased from stress dosed steroids, remains afebrile Now weaned off O2 -complete 7 day course of cefepime and doxy through last dose evening of 06/01 (2) Cardiac arrest: Plan: Had V. fib arrest on the evening of 05/25 CODE BLUE was called and CPR was started. Received 1 shock and 1 mg of epi and achieved ROSC. Was intubated overnight on 05/25 and extubated on the morning of 05/26. - Per Dr. Daley, appears to be idiopathic, primary Vfib. -> Plan for ICD when pneumonia stabilized. Will d/w Cardiology-would think or Saturday would be fine as abx course would be complete will need to hold ELiquis prior to procedure (3) Permanent atrial fibrillation: Plan: Rapid afib persisted for the first 2 days of admission - likely secondary to sepsis and hypovolemia. Patient managed by Dr. Sams (yearly visits). Now on amiodarone drip status post cardiac arrest and rates are improved in the low 100s. Amiodarone gtt converted to po loading dose of amiodarone 400mg po bid on 05/29 - Appreciate cardiology consultation -continue home Eliquis - Restarted Toprol-XL -> Increased to 75 mg on 05/28; then to 100 mg on 05/30, increase as tolerated for improved rate control-defer to Cardio -avoid restarting home diltiazem now that EF is reduced (4) Ventricular fibrillation: Plan: As above, idiopathic (5) Cardiogenic shock: Plan: Now weaned off vasopressors. - Restarted Toprol-XL on 05/27. Increased to 100 mg on 05/29. - Restart RUSSEL inhibitor when blood pressure can tolerate (6) Respiratory failure with hypoxia: Plan: Secondary to cardiogenic shock and cardiac arrest, PNA, now extubated. Now weaned off O2 to room air at rest (7) Elevated troponin: Plan: Troponin peaked at 1.5 after cardiac arrest. This is secondary to cardiac contusion and also secondary to hypoperfusion. No urgent need for cardiac catheterization. - Outpatient f/u (8) Sepsis: Plan: Presented with fevers, leukocytosis, tachycardia, and source of infection being both pneumonia and UTI. SEPSIS, POA. Now resolved (9) Urinary tract infection: Plan: Abnormal UA although without any urinary symptoms. Urine culture with Klebsiella pansens. - Abx as for PNA will also cover for UTI (10) Duodenitis: Plan: Noted on CT abdomen/pelvis from admission. She initially had nausea but no vomiting, no melena or hematemesis. Could certainly have peptic ulcer disease given long history of chronic prednisone. - Continue Protonix 40 mg PO BID - Monitor for any evidence of GI bleeding - No need for GI consultation or endoscopy at this point (11) Hyponatremia: Plan: Likely secondary to hypovolemia initially, possibly some SIADH from PNA. - Sodium mildly low at 131 and stable from yesterday. (12) Osteoporosis, unspecified: Plan: - Hold home calcium carbonate-vitamin D (13) Chronic anticoagulation: Plan: - Continue Eliquis (14) Hypertension: Plan: BP stable - Holding home diltiazem and lisinopril - Restarted metoprolol XL as above -would not restart diltiazem as above for reduced EF (15) Cardiomyopathy: Plan: With a history of HFrEF that had improved. Now with worsening EF as above secondary to cardiac arrest and cardiogenic shock-LVEF now 30-35%. - As above restart ACEi when able to from BP standpoint (16) Rheumatoid arthritis: Plan: Managed with methotrexate 10 mg, etanercept, & chronic prednisone. - Hold home methotrexate and Enbrel while acutely infected -continue folic acid - Transitioned to prednisone on 05/28; will decrease for today to 30 mg while on stress dose steroids -plan to return to prednisone 3mg daily which is home dose over the course of the next 5-7 days. (17) Anxiety: Plan: - Continue home lorazepam as needed hs (18) PAD (peripheral artery disease): Plan: With a history of angioplasty and stenting in bilateral legs with vascular surgery. - Continue Plavix & statin (19) Rib fractures: Plan: continue pain control with lidocaine patch, APAP prn IS ordered needs mobilization OOB with PT Plan: DVT Proph-ELiquis DIspo-continued stay on tele reordered PT/OT as has not worked with them in 5 days, will likely need rehab placement expect discharge after ICD placement later this week, perhaps through the weekend Admission and Anticipated Discharge Date Admission Date: May 23, 2021 Subjective Pt has some pain at site of rib fractures on left but other wade doing ok. Some cough if talks too much. Not sputum coming up. No OSB. Moved bowels this AM was OOB to chair for 35 min today and this caused fatigue but was first time out of bed in 5 days Tele with Afib, rates 100 Review of Systems Review of Systems: All systems reviewed & are unremarkable except as noted in HPI & below Physical Exam Constitutional: WD/WN, vitals as above Eyes: + anicteric sclerae Neck: trachea midline, no thyromegaly Respiratory: normal respiratory effort; no cough and not tachypneic Auscultation: + crackles (At right middle and upper lung [place]); no rhonchi and no wheezes Cardiovascular: Rate/Rhythm: + tachycardic (mild) and + irregularly irregular Heart Sounds: no murmur Extremities: no edema Chest (Breasts): Chest: normal inspection of chest Gastrointestinal (Abdomen): normal bowel sounds, soft, nontender, no hepatosplenomegaly Musculoskeletal: Extremities: + extremities abnormal to inspection (ulnar deviation of finers bilat), no cyanosis and no clubbing Skin: no rashes, warm and dry Neurologic: moves all extremities and awake; no focal motor deficits Psychiatric: A+Ox3, euthymic affect Lymphatic: no lymphedema Results & Data Results & [facility]) Vital Signs (Past 12 Hours) Vital Signs Temp Pulse Resp BP Pulse Ox 05/30/21 04:35 36.4 C L 99 H 18 112/90 94 05/30/21 00:15 36.5 C 102 H 18 111/85 94 Laboratory Results 05/30/21 05/30/21 Range/Units 04:12 04:12 WBC 20.36 H (4.8-10.8) K/uL RBC 3.80 L (4.2-5.4) M/uL Hgb 12.4 (12.0-16.0) g/dL Hct 36.9 L (37-47) % MCV 97.1 (80-100) fL MCH 32.6 (25-34) pg MCHC 33.6 (32-36) g/dL RDW Std Deviation 53.2 H (36.4-46.3) fL RDW Coeff of Libra 15.1 H (11.5-14.5) % Plt Count 444 H (130-400) K/uL MPV 9.9 (7.4-10.4) fL Absolute Nucleated RBC 0.06 H (0-0) K/uL Nucleated RBC % (auto) 0.3 % Sodium 131 L (136-145) mmol/L Potassium 4.1 (3.5-5.1) mmol/L Chloride 101 (98-107) mmol/L Carbon Dioxide 21 (21-32) mmol/L Anion Gap 9 (3-11) BUN 31 H (6-23) mg/dl Creatinine 0.87 (0.6-1.2) mg/dl Est Cr Clr Drug Dosing 46.1 ml/min Est GFR ( Amer) 72.9 ml/min Est GFR (Non-Af Amer) 62.9 ml/min BUN/Creatinine Ratio 35.6 H (10-20) Glucose 139 H (70-99(Fasting)) mg/dl Calcium 8.4 L (8.5-10.1) mg/dl Magnesium 2.0 (1.7-2.4) mg/dl PG Care Time/CCT Total # of Minutes Spent Total Time Spent with Patient: Total time spent is greater than 50% in coordination of care (as documented) at patient's floor/unit and/or counseling patient: Coding Level of Care Code 20978 Subseq Hosp Care Lvl 3 Diagnoses Pneumonia J18.9 Laterality: right Lung location: upper lobe of lung Pneumonia type: due to unspecified organism Cardiac arrest I46.9 Permanent atrial fibrillation I48.21 Ventricular fibrillation I49.01 Cardiogenic shock R57.0 Respiratory failure with hypoxia J96.91 Elevated troponin R77.8 Sepsis A41.9 Urinary tract infection N39.0 Hematuria presence: without hematuria Urinary tract infection type: site unspecified Duodenitis K29.80 Hyponatremia E87.1 Osteoporosis, unspecified M81.0 Osteoporosis type: age-related Presence of current pathological fracture: without current pathological fracture Chronic anticoagulation Z79.01 Hypertension I10 Hypertension type: essential hypertension Cardiomyopathy I42.9 Cardiomyopathy type: unspecified Rheumatoid arthritis M05.79 Rheumatoid arthritis location: multiple sites Rheumatoid factor presence: with rheumatoid factor Anxiety F41.9 PAD (peripheral artery disease) I73.9 Rib fractures S22.49XA (1) Pneumonia Laterality: right Lung location: upper lobe of lung Pneumonia type: due to unspecified organism Qualified Code(s): J18.9 - Pneumonia, unspecified organism (2) Urinary tract infection Hematuria presence: without hematuria Urinary tract infection type: site unspecified Qualified Code(s): N39.0 - Urinary tract infection, site not specified (3) Osteoporosis, unspecified Osteoporosis type: age-related Presence of current pathological fracture: without current pathological fracture Qualified Code(s): M81.0 - Age-related osteoporosis without current pathological fracture (4) Hypertension Hypertension type: essential hypertension Qualified Code(s): I10 - Essential (primary) hypertension (5) Cardiomyopathy Cardiomyopathy type: unspecified Qualified Code(s): I42.9 - Cardiomyopathy, u nspecified (6) Rheumatoid arthritis Rheumatoid arthritis location: multiple sites Rheumatoid factor presence: with rheumatoid factor Qualified Code(s): M05.79 - Rheumatoid arthritis with rheumatoid factor of multiple sites without organ or systems involvement
[2021-05-30] MEDS ORDERED: METOPROLOL SUCC 25MG EXT REL TAB PO ONE (16:38)
--- NOTE | 2021-05-30 16:38 | Cardiology Progress Note ---
Date of Service May 30, 2021 Assessment & Plan (1) Cardiac arrest: (2) Cardiomyopathy: (3) Elevated troponin: (4) Permanent atrial fibrillation: Plan: ASSESSMENT/PLAN: 1. Cardiac arrest/ventricular fibrillation: No recurrent arrhythmias. I discussed ICD implantation with the patient. I discussed the risks and benefits. We will plan on proceeding on . 2. Cardiomyopathy: Reduced on last evaluation. Likely related to her acute illness/arrest. Will continue metoprolol. Appears well-compensated. Consider limited re-evaluation prior to d/c 4. Permanent atrial fibrillation: General improvement of her Heart rates as her clinical condition improved. Still some elevated rates at times. She is essentially back on her outpatient dose which in the past has controlled her atrial fibrillation quite well. She is also on amiodarone which will over time improved ventricular response. However, I think we could give another extra dose of metoprolol succinate this evening. No symptoms associated with her atrial fibrillation. Admission and Anticipated Discharge Date Admission Date: May 23, 2021 Subjective patient's main complaint this morning was simply chest discomfort presumably from chest compressions. She denies significant breathing difficulty. She was able to get out of bed into a chair and did not report any dizziness. No sense of palpitation. Review of Systems Review of Systems: Per HPI Physical Exam Physical Exam: She is alert and oriented x3. Mood affect appear normal. She answered all questions appropriately. HEENT: Sclerae are anicteric. Pupils are equal and reactive to light and accommodation. Extraocular movements were intact. Neuro: Cranial nerves intact Lungs: reduced breath sounds in the bases bilaterally. Normal respiratory effort. No expiratory wheezing. Cardiac: The rhythm was irregular. S1 and S2 were normal. There are no murmurs on examination. The PMI was not markedly displaced on palpation. Extremities: Patient has bilateral radial pulses that are equal in intensity. There is no evidence cyanosis or clubbing. Skin: There are no rashes noted on examination today. Results & Data ([facility]) Vital Signs (Past 12 Hours) Vital Signs Temp Pulse Pulse Resp BP Pulse Ox 05/30/21 15:29 36.4 C L 112 H 25 H 137/90 96 05/30/21 12:31 36.4 C L 98 H 26 H 125/95 94 05/30/21 09:00 110 H Laboratory Results Abnormal Lab Results 05/30/21 05/30/21 04:12 04:12 WBC 20.36 H RBC 3.80 L Hgb 12.4 Hct 36.9 L MCV 97.1 MCH 32.6 MCHC 33.6 RDW Std Deviation 53.2 H RDW Coeff of Libra 15.1 H Plt Count 444 H MPV 9.9 Absolute Nucleated RBC 0.06 H Nucleated RBC % (auto) 0.3 Sodium 131 L Potassium 4.1 Chloride 101 Carbon Dioxide 21 Anion Gap 9 BUN 31 H Creatinine 0.87 Est Cr Clr Drug Dosing 46.1 Est GFR ( Amer) 72.9 Est GFR (Non-Af Amer) 62.9 BUN/Creatinine Ratio 35.6 H Glucose 139 H Calcium 8.4 L Magnesium 2.0 PG Care Time/CCT Total # of Minutes Spent Total Time Spent with Patient: Total time spent is greater than 50% in coordination of care (as documented) at patient's floor/unit and/or counseling patient: Coding Level of Care Code 29459 Subseq Hosp Care Lvl 3 Diagnoses Cardiac arrest I46.9 Cardiomyopathy I42.9 Cardiomyopathy type: unspecified Elevated troponin R77.8 Permanent atrial fibrillation I48.21 (1) Cardiomyopathy Cardiomyopathy type: unspecified Qualified Code(s): I42.9 - Cardiomyopathy, unspecified
[2021-05-31 05:15] LABS: Hematocrit (blood only) 37.2 % (37-47); Hemoglobin 12.2 g/dL (12.0-16.0); Mean Corpuscular Hemoglobin 32.1 pg (25-34); Mean Corpuscular Hgb Conc 32.8 g/dL (32-36); Mean Corpuscular Volume 97.9 fL (80-100); Mean Platelet Volume 9.5 fL (7.4-10.4); Nucleated RBC # (auto) 0.07 K/uL (0-0); Nucleated RBC % (auto) 0.3 %; Platelet Count 411 K/uL (130-400); RDW Coefficient of Variation 15.1 % (11.5-14.5); RDW Standard Deviation 53.6 fL (36.4-46.3)
[2021-05-31 05:32] LABS: Albumin Level 2.8 gm/dl (3.4-5.0); BUN Creatinine Ratio 37.1 (10-20); Bilirubin,Total 1.1 mg/dl (0.2-1.0); C Reactive Protein 4.05 mg/dl (0-0.5); Calcium 8.3 mg/dl (8.5-10.1); Creatinine Clr Calc Pharmacy 45.1 ml/min; Est GFR (African American) 70.9 ml/min; Est GFR (Non-African American) 61.2 ml/min; Globulin 2.8 gm/dl (2.5-4.0); Phosphorus 2.5 mg/dl (2.5-4.9); Potassium 4.3 mmol/L (3.5-5.1); Total Protein 5.6 gm/dl (6.0-8.3)
[2021-05-31 06:03] LABS: Basophils # (auto) 0.02 K/uL (0-0.2); Basophils % (auto) 0.1 %; Eosinophils # (auto) 0.07 K/uL (0-0.5); Eosinophils % (auto) 0.3 %; Immature Granulocytes # (auto) 0.87 K/uL (0.00-0.02); Immature Granulocytes % (auto) 4.2 %; Lymphocytes # (auto) 2.28 K/uL (1.2-3.4); Monocytes % (auto) 7.7 %; Neutrophils # (auto) 15.96 K/uL (1.4-6.5); Neutrophils % (auto) 76.7 %; Polychromasia 1+
[2021-05-31] MEDS: ACETAMINOPHEN 500 MG TAB PO SCH (08:32)
[2021-05-31] MEDS: AMIODARONE 200 MG TAB PO SCH ×2 (08:32→16:14)
[2021-05-31] MEDS: LIDOCAINE 5% 1 PATCH TD SCH (08:33)
[2021-05-31] MEDS: CLOPIDOGREL BISULFATE 75 MG TAB PO SCH (08:33)
[2021-05-31] MEDS: FOLIC ACID 1 MG TAB PO SCH (08:33)
[2021-05-31] MEDS: PANTOprazole 40 MG TAB PO SCH ×2 (08:34→21:09)
[2021-05-31] MEDS: predniSONE 10 MG TABLET PO SCH (08:34)
[2021-05-31] MEDS: METOPROLOL SUCC 50MG EXT REL TAB PO SCH (08:34)
[2021-05-31] MEDS: ROSUVASTATIN CALCIUM 5 MG TAB PO SCH (08:35)
[2021-05-31] MEDS ORDERED: FUROSEMIDE INJ 20 MG/2 ML VIAL IV ONE (08:45)
--- NOTE | 2021-05-31 09:03 | Cardiology Progress Note ---
Date of Service May 31, 2021 Assessment & Plan (1) Cardiac arrest: (2) Cardiomyopathy: (3) Elevated troponin: (4) Permanent atrial fibrillation: Plan: ASSESSMENT/PLAN: 1. Cardiac arrest/ventricular fibrillation: No recurrent arrhythmias. I discussed ICD implantation with the patient. I discussed the risks and benefits. We will plan on proceeding on tomorrow. 2. Cardiomyopathy: Reduced on last evaluation. Likely related to her acute illness/arrest. Will continue metoprolol. Appears well-compensated. Will perform limited re-evaluation today. 4. Permanent atrial fibrillation: Heart rates have been fairly stable just over 100 beats per minute at rest. No symptoms. We have given her some additional doses of metoprolol succinate and she has been on her home dose for the past 3 days. Will reassess her LV function and determine if additional rate control is required. As she takes more amiodarone I would also expect her heart rate to slowly improved. Admission and Anticipated Discharge Date Admission Date: May 23, 2021 Subjective This morning the patient claims to be feeling well. She continues to have some residual chest wall discomfort when she takes a deep breath. The topical analgesics appears to be helping. She was out of bed and ambulated briefly yesterday. She did not report overt dyspnea or dizziness. However, she does report significant fatigue and weakness. Review of Systems Review of Systems: Per HPI Physical Exam Physical Exam: She is alert and oriented x3. Mood affect appear normal. She answered all questions appropriately. HEENT: Sclerae are anicteric. Pupils are equal and reactive to light and accommodation. Extraocular movements were intact. Neuro: Cranial nerves intact Lungs: normal respiratory effort Extremities: Patient has bilateral radial pulses that are equal in intensity. There is no evidence cyanosis or clubbing. mild pretibial edema Skin: There are no rashes noted on examination today. Results & Data ([facility]) Vital Signs (Past 12 Hours) Vital Signs Temp Pulse Resp BP Pulse Ox 05/31/21 04:00 36.5 C 98 H 19 126/99 95 05/31/21 00:00 36.6 C 102 H 22 124/94 98 Laboratory Results Abnormal Lab Results 05/31/21 05/31/21 05:01 05:01 WBC 20.80 H RBC 3.80 L Hgb 12.2 Hct 37.2 MCV 97.9 MCH 32.1 MCHC 32.8 RDW Std Deviation 53.6 H RDW Coeff of Libra 15.1 H Plt Count 411 H MPV 9.5 Immature Gran % (Auto) 4.2 Neut % (Auto) 76.7 Lymph % (Auto) 11.0 [place] % (Auto) 7.7 Eos % (Auto) 0.3 Baso % (Auto) 0.1 Neut # (Auto) 15.96 H Lymph # (Auto) 2.28 [place] # (Auto) 1.60 H Eos # (Auto) 0.07 Baso # (Auto) 0.02 Immature Gran # (Auto) 0.87 H Absolute Nucleated RBC 0.07 H Nucleated RBC % (auto) 0.3 Polychromasia 1+ Sodium 132 L Potassium 4.3 Chloride 102 Carbon Dioxide 23 Anion Gap 7 BUN 33 H Creatinine 0.89 Est Cr Clr Drug Dosing 45.1 Est GFR ( Amer) 70.9 Est GFR (Non-Af Amer) 61.2 BUN/Creatinine Ratio 37.1 H Glucose 113 H Calcium 8.3 L Phosphorus 2.5 Magnesium 2.0 Total Bilirubin 1.1 H AST 17 ALT 18 Alkaline Phosphatase 106 H C-Reactive Protein 4.05 H Total Protein 5.6 L Albumin 2.8 L Globulin 2.8 Albumin/Globulin Ratio 1.0 PG Care Time/CCT Total # of Minutes Spent Total Time Spent with Patient: Total time spent is greater than 50% in coordination of care (as documented) at patient's floor/unit and/or counseling patient: Coding Level of Care Code 84539 Subseq Hosp Care Lvl 2 Diagnoses Cardiac arrest I46.9 Cardiomyopathy I42.9 Cardiomyopathy type: unspecified Elevated troponin R77.8 Permanent atrial fibrillation I48.21 (1) Cardiomyopathy Cardiomyopathy type: unspecified Qualified Code(s): I42.9 - Cardiomyopathy, unspecified
--- NOTE | 2021-05-31 11:35 | XCELERA ---
[id number]
[2021-05-31] MEDS: CEFEPIME 2,000 MG in SYRINGE 0 ML IV SCH ×2 (11:44→23:22)
[2021-05-31] MEDS: DOXYCYCLINE HYCLATE 100 MG in DEXTROSE 5% 100 ML IV SCH ×2 (11:44→23:22)
--- NOTE | 2021-05-31 15:53 | Hospitalist Progress Note ---
Date of Service May 31, 2021 Assessment & Plan (1) Pneumonia: Plan: CT chest on 05/26 right upper lobe consolidative airspace opacity with associated air bronchograms. Covid-19 and influenza A/B both negative. - On cefepime/doxycycline per pulmonology. Feel that with her immune suppression, she is at risk for more extended bacterial illnesses. - Repeated CT chest on 05/28 as she had faster respiratory rate and continue hypoxemia. No change in appearance. -> Stable today. Finish antibiotics on 06/04 for a 10-day course. (2) Cardiac arrest: Plan: Had V. fib arrest on the evening of 05/25 CODE BLUE was called and CPR was started. Received 1 shock and 1 mg of epi and achieved ROSC. Was intubated overnight on 05/25 and extubated on the morning of 05/26. - Per Dr. Daley, appears to be idiopathic, primary Vfib. -> Plan for ICD tomorrow. (3) Permanent atrial fibrillation: Plan: Rapid afib persisted for the first 2 days of admission - likely secondary to sepsis and hypovolemia. Patient managed by Dr. Sams (yearly visits). Now on amiodarone drip status post cardiac arrest and rates are improved in the low 100s. - Appreciate cardiology consultation - Restarted home Eliquis - Restarted Toprol-XL -> Increased to 75 mg on 05/28; now 100 mg today. (4) Ventricular fibrillation: Plan: As above (5) Cardiogenic shock: Plan: Now weaned off vasopressors. - Restarted Toprol-XL on 05/27. Increased to 100 mg on 05/29. - Restart RUSSEL inhibitor when blood pressure can tolerate (6) Respiratory failure with hypoxia: Plan: Secondary to cardiogenic shock and cardiac arrest, now extubated. (7) Elevated troponin: Plan: Troponin peaked at 1.5 after cardiac arrest. This is secondary to cardiac contusion and also secondary to hypoperfusion. No urgent need for cardiac catheterization. - Outpatient f/u (8) Sepsis: Plan: Presented with fevers, leukocytosis, tachycardia, and source of infection being both pneumonia and UTI. SEPSIS, POA. (9) Urinary tract infection: Plan: Abnormal UA although without any urinary symptoms. Urine culture with Klebsiella pansens. - Abx as for PNA (10) Duodenitis: Plan: Noted on CT abdomen/pelvis from admission. She initially had nausea but no vomiting, no melena or hematemesis. Could certainly have peptic ulcer disease given long history of chronic prednisone. - Continue Protonix 40 mg PO BID - Monitor for any evidence of GI bleeding - No need for GI consultation or endoscopy at this point (11) Hyponatremia: Plan: Likely secondary to hypovolemia initially, possibly some SIADH from PNA. - Sodium mildly low at 132 and stable from yesterday. (12) Osteoporosis, unspecified: Plan: - Hold home calcium carbonate-vitamin D (13) Chronic anticoagulation: Plan: - Continue Eliquis (14) Hypertension: Plan: BP today is 115/90. - Holding home diltiazem and lisinopril - Restarted metoprolol XL on 05/27; increased as above (15) Cardiomyopathy: Plan: With a history of HFrEF that had improved. Now with worsening EF as above secondary to cardiac arrest and cardiogenic shock-LVEF now 30-35%. - Lasix 20 mg IV given on 05/31 for some mild edema. (16) Rheumatoid arthritis: Plan: Managed with methotrexate 10 mg, etanercept, & chronic prednisone. - Hold home methotrexate and Enbrel while acutely infected - Transitioned to prednisone on 05/28; will decrease for tomorrow to 20 mg. (17) Anxiety: Plan: - Continue home lorazepam as needed (18) PAD (peripheral artery disease): Plan: With a history of angioplasty and stenting in bilateral legs with vascular surgery. - Continue Plavix & statin Admission and Anticipated Discharge Date Admission Date: May 23, 2021 Subjective Doing fairly well today. No major shortness of breath. Minimal cough. Pain is fairly well controlled with lidocaine patch. Was up with PT yesterday. Reports no fevers/chills, chest pain, abdominal pain, nausea, or vomiting. Physical Exam Constitutional: WD/WN, vitals as above Eyes: EOM intact bilaterally; no conjunctival abnormality ENMT: external ear and nose normal, oropharynx normal Neck: trachea midline, no thyromegaly normal visual inspection Respiratory: normal respiratory effort, lungs clear to auscultation no respiratory distress Auscultation: + rhonchi Cardiovascular: Rate/Rhythm: + tachycardic and + irregularly irregular Gastrointestinal (Abdomen): Inspection/Auscultation: abdomen normal to inspection; abdomen not distended Musculoskeletal: no cyanosis or clubbing, extremities motor strength 5/5 Skin: no rashes, warm and dry Neurologic: moves all extremities and awake Psychiatric: Orientation: alert, oriented to person and cooperative Results & Data Results & Data ([facility]) Vital Signs (Past 12 Hours) Vital Signs Temp Pulse Resp BP Pulse Ox 05/31/21 11:50 36.4 C L 109 H 30 H 110/92 95 05/31/21 08:00 36.3 C L 112 H 21 110/83 96 05/31/21 04:00 36.5 C 98 H 19 126/99 95 PG Care Time/CCT Total # of Minutes Spent Total Time Spent with Patient: Total time spent is greater than 50% in coordination of care (as documented) at patient's floor/unit and/or counseling patient: Coding Level of Care Code 35815 Subseq Hosp Care Lvl 2 Diagnoses Pneumonia J18.9 Laterality: right Lung location: upper lobe of lung Pneumonia type: due to unspecified organism Cardiac arrest I46.9 Permanent atrial fibrillation I48.21 Ventricular fibrillation I49.01 Cardiogenic shock R57.0 Respiratory failure with hypoxia J96.91 Elevated troponin R77.8 Sepsis A41.9 Urinary tract infection N39.0 Hematuria presence: without hematuria Urinary tract infection type: site unspecified Duodenitis K29.80 Hyponatremia E87.1 Osteoporosis, unspecified M81.0 Osteoporosis type: age-related Presence of current pathological fracture: without current pathological fracture Chronic anticoagulation Z79.01 Hypertension I10 Hypertension type: essential hypertension Cardiomyopathy I42.9 Cardiomyopathy type: unspecified Rheumatoid arthritis M05.79 Rheumatoid arthritis location: multiple sites Rheumatoid factor presence: with rheumatoid factor Anxiety F41.9 PAD (peripheral artery disease) I73.9 (1) Pneumonia Laterality: right Lung location: upper lobe of lung Pneumonia type: due to unspecified organism Qualified Code(s): J18.9 - Pneumonia, unspecified organism (2) Urinary tract infection Hematuria presence: without hematuria Urinary tract infection type: site unspecified Qualified Code(s): N39.0 - Urinary tract infection, site not specified (3) Osteoporosis, unspecified Osteoporosis type: age-related Presence of current pathological fracture: without current pathological fracture Qualified Code(s): M81.0 - Age-related osteoporosis without current pathological fracture (4) Hypertension Hypertension type: essential hypertension Qualified Code(s): I10 - Essential (primary) hypertension (5) Cardiomyopathy Cardiomyopathy type: unspecified Qualified Code(s): I42.9 - Cardiomyopathy, unspecified (6) Rheumatoid arthritis Rheumatoid arthritis location: multiple sites Rheumatoid factor presence: with rheumatoid factor Qualified Code(s): M05.79 - Rheumatoid arthritis with rheumatoid factor of multiple sites without organ or systems involvement
[2021-06-01] MEDS: traMADol HCL 50 MG TABLET PO PRN ×2 (01:55→23:19)
[2021-06-01 04:51] LABS: Hematocrit (blood only) 37.3 % (37-47); Hemoglobin 12.4 g/dL (12.0-16.0); Mean Corpuscular Hemoglobin 32.4 pg (25-34); Mean Corpuscular Hgb Conc 33.2 g/dL (32-36); Mean Corpuscular Volume 97.4 fL (80-100); Mean Platelet Volume 9.3 fL (7.4-10.4); Platelet Count 393 K/uL (130-400); RDW Standard Deviation 52.7 fL (36.4-46.3); Red Blood Count 3.83 M/uL (4.2-5.4); White Blood Count 21.76 K/uL (4.8-10.8)
[2021-06-01 05:12] LABS: BUN Creatinine Ratio 38.3 (10-20); Calcium 8.3 mg/dl (8.5-10.1); Creatinine Clr Calc Pharmacy 39.5 ml/min; Est GFR (African American) 66.4 ml/min; Est GFR (Non-African American) 57.3 ml/min; Magnesium 1.9 mg/dl (1.7-2.4)
[2021-06-01 05:34] LABS: Basophils # (auto) 0.02 K/uL (0-0.2); Basophils % (auto) 0.1 %; Eosinophils # (auto) 0.11 K/uL (0-0.5); Eosinophils % (auto) 0.5 %; Immature Granulocytes # (auto) 0.79 K/uL (0.00-0.02); Immature Granulocytes % (auto) 3.6 %; Lymphocytes # (auto) 1.97 K/uL (1.2-3.4); Lymphocytes % (auto) 9.1 %; Monocytes # (auto) 1.55 K/uL (0.11-0.59); Monocytes % (auto) 7.1 %; Neutrophils # (auto) 17.32 K/uL (1.4-6.5); Neutrophils % (auto) 79.6 %; RBC Morphology Unremarkable
[2021-06-01] MEDS ORDERED: WATER, STERILE FOR INJ 10 ML VIAL ONE (06:45)
[2021-06-01] MEDS ORDERED: LIDOCAINE 1% LOCAL 20 ML VIAL ONE (06:45)
[2021-06-01] MEDS ORDERED: VANCOMYCIN HCL 1000MG/20ML VIAL ONE (06:46)
[2021-06-01] MEDS ORDERED: BUPIVACAINE 0.25% 30 ML VIAL ONE (06:46)
[2021-06-01] MEDS ORDERED: ceFAZolin 330 MG/ML 1 GM VIAL ONE (07:26)
[2021-06-01] MEDS ORDERED: fentaNYL citrate 100 MCG/2 ML VIAL ONE (07:26)
[2021-06-01] MEDS ORDERED: MIDAZOLAM HCL 5 MG/ML 1 ML VIAL ONE (07:26)
--- NOTE | 2021-06-01 07:42 | Pre Anesthesia Assessment ---
Date of Service June 01, 2021 Pre Sedation Assessment Vital Signs Temp Pulse Resp BP Pulse Ox 06/01/21 04:00 36.5 C 99 H 24 127/99 95 06/01/21 00:00 36.6 C 95 H 22 112/87 94 05/31/21 20:00 36.5 C 96 H 22 124/98 95 05/31/21 16:00 36.3 C L 110 H 29 H 119/81 94 05/31/21 11:50 36.4 C L 109 H 30 H 110/92 95 05/31/21 08:00 36.3 C L 112 H 21 110/83 96 Cardiovascular + tachycardic and + irregularly irregular Respiratory + respiratory effort normal Pre-Sedation Airway Assessment Smoking Status: Former smoker Hx Sleep Apnea: No Hx Difficult Intubation: No Short, Thick Neck: No Thyromental Distance: > or= 3.5 Finger Breadths Oral Cavity: + WNL Mallampati Class: III ASA: ASA3 Procedure Planning Contraindications for Sedation: none Current Medications Reviewed: Yes Notes The planned sedation has been discussed with the patient. Informed Consent was obtained. I have identified the patient, determined the appropriateness of sedation and have assessed the patient immediately prior to the procedure. All medicine(s) and interventions are by my order.
[2021-06-01] MEDS ORDERED: oxyCODONE HCL IR 5 MG TAB (IMMEDIATE RELEASE) PO PRN (08:25)
--- NOTE | 2021-06-01 08:27 | Post Anesthesia Assessment ---
Date of Service June 01, 2021 Post Sedation Assessment Vital Signs Temp Pulse Resp BP Pulse Ox 06/01/21 04:00 36.5 C 99 H 24 127/99 95 06/01/21 00:00 36.6 C 95 H 22 112/87 94 05/31/21 20:00 36.5 C 96 H 22 124/98 95 05/31/21 16:00 36.3 C L 110 H 29 H 119/81 94 05/31/21 11:50 36.4 C L 109 H 30 H 110/92 95 Recovery Score Activity: Moves 4 extremities Respiration: Deep Breath/Cough Circulation: +/-20% PreAnes Value Consciousness: Fully Awake Oxygen Saturation: > 92% On Room Air Discharge Sedation Level of Care: Fast Track Phase II Post Sedation Plan On clinical assessment, the patient appears to have tolerated the sedation without complications. Patient is recovering as anticipated. Patient will continue to be monitored by nursing and may be discharged when sedation discharge criteria are met per below protocol. Upon Completions of procedure up to 15 minutes continue every 5 minute vital signs and the P.A.R. score; then discharge to a Phase I or Fast Track to Phase II per the following guidelines: * Discharge Patient to appropriate Phase II area if PAR is 8 or greater or return to pre- procedure baseline. The post - procedure orders will be as directed. * If PAR score is less than 8 or not return to pre-procedure baseline then patient will follow Phase I monitoring till PAR is reached for Phase II. The Phase I may be done in procedure room or may call to secure a Phase I area. * If naloxone or flumazenil are used for reversal, hold in Phase I for continued monitoring from when last reversal dose was given for a minimum of 60 minutes or longer pending the nurse and/or physician discretion of patient condition before discharge to Phase II. Please call the Sedation Physician to re-evaluate and complete post-note for discharge to Phase II area. Do NOT discharge from procedure sedation or Phase 1 until post- sedation evaluation note is complete by procedure /sedation MD Sedation Discharge Instructions to be given to the patient at discharge to home.
--- NOTE | 2021-06-01 08:27 | Electrophysiology Report ---
Date of Service June 01, 2021 Electrophysiology Procedure Electrophysiology Procedure Report Procedure performed: Implantation of single-chamber ICD Staff director toxicology: Timothy Sams MD Indication: The patient is an 80-year-old woman who suffered an in-hospital cardiac arrest. Her rhythm was ventricular fibrillation. There did not appear to be a clear precipitant. Based on her cardiac arrest she was felt to be a good candidate for an ICD as secondary prevention against sudden cardiac . Procedure in detail: The patient was informed of the risks benefits and alternatives to the intended procedure and she wished to proceed. She was taken to the electrophysiology suite in a fasting state. A preoperative antibiotic had been administered. The patient was monitored electrocardiographically throughout today's procedure and conscious sedation was administered per protocol. The left upper pectoral area is prepped and draped in usual sterile fashion. This area was anesthetized using subcutaneous administration of a xylocaine solution. An incision was made at this site and carried down to the prepectoralis fascia using sharp dissection. Electrocautery was also employed for dissection as well as for hemostasis. A device pocket was fashioned tissues above the pectoralis muscle. Subsequent to this maneuver the left axillary vein was accessed using modified Seldinger technique. Sheath was placed over guidewire at this site and used facilitate passage of the ICD lead to the right ventricular apex under fluoroscopic guidance. Adequate sensing and threshold parameters were obtained prior to active fixation of this lead to the endocardial surface. The proximal portion of lead was then sutured the prepectoralis fascia using nonabsorbable suture. The lead was subsequently attached to the device. The device pocket was irrigated with an antibiotic solution. The device and lead were then placed in the pocket and pocket was closed in 3 layers of absorbable suture. Steri-Strips and sterile dressing were applied. The device was tested noninvasively prior to conclusion the procedure. The patient tolerated procedure well there no immediate complications. Equipment used: New pulse generator: [employer]. Model number: [id number] serial number [id number] Right ventricular lead: [employer]feree [employer]. Model number: 6935M serial number [id number] Measured data: Right ventricular lead: R waves measured 11.8 mV. Pacing threshold was 0.75 V at 0.4 ms with a pacing impedance of 646 ohms Impression: Successful implantation of single-chamber [place] [facility] [place] ICD Procedure 1: ICD: 88440 Insert single or dual ICD system PG Moderate Sedation Codes Moderate Sedation Codes Procedure 1: Sedation/Anesthesia: 88065 Mod Sedation by the same physician;Init15 Min Child Age 5 & Up Procedure 2: Sedation/Anesthesia: 62475 Mod Sedation by the same physician; Ea [id number] Minutes
[2021-06-01] MEDS ORDERED: predniSONE 20 MG TAB PO SCH (09:00)
[2021-06-01] MEDS: PANTOprazole 40 MG TAB PO SCH ×2 (09:44→20:28)
[2021-06-01] MEDS: CLOPIDOGREL BISULFATE 75 MG TAB PO SCH (09:44)
[2021-06-01] MEDS: FOLIC ACID 1 MG TAB PO SCH (09:44)
[2021-06-01] MEDS: METOPROLOL SUCC 50MG EXT REL TAB PO SCH (09:44)
[2021-06-01] MEDS: LIDOCAINE 5% 1 PATCH TD SCH (09:44)
[2021-06-01] MEDS: AMIODARONE 200 MG TAB PO SCH ×2 (09:44→16:34)
[2021-06-01] MEDS: ROSUVASTATIN CALCIUM 5 MG TAB PO SCH (09:44)
[2021-06-01] MEDS: DOXYCYCLINE HYCLATE 100 MG in DEXTROSE 5% 100 ML IV SCH ×2 (12:30→23:18)
[2021-06-01] MEDS: CEFEPIME 2,000 MG in SYRINGE 0 ML IV SCH ×2 (12:30→23:18)
--- NOTE | 2021-06-01 14:23 | Hospitalist Progress Note ---
Date of Service June 01, 2021 Assessment & Plan (1) Pneumonia: Plan: CT chest on 05/26 right upper lobe consolidative airspace opacity with associated air bronchograms. Covid-19 and influenza A/B both negative. - On cefepime/doxycycline per pulmonology. Feel that with her immune suppression, she is at risk for more extended bacterial illnesses. - Repeated CT chest on 05/28 as she had faster respiratory rate and continue hypoxemia. No change in appearance. -> Stable today. Finished antibiotics on 06/01 for a 10-day course. (2) Cardiac arrest: Plan: Had V. fib arrest on the evening of 05/25 CODE BLUE was called and CPR was started. Received 1 shock and 1 mg of epi and achieved ROSC. Was intubated overnight on 05/25 and extubated on the morning of 05/26. - Per Dr. Daley, appears to be idiopathic, primary Vfib. -> ICD today with Dr. Sams. No complications noted. (3) Permanent atrial fibrillation: Plan: Rapid afib persisted for the first 2 days of admission - likely secondary to sepsis and hypovolemia. Patient managed by Dr. Sams (yearly visits). Now on amiodarone drip status post cardiac arrest and rates are improved in the low 100s. - Appreciate cardiology consultation - Restarted home Eliquis - Restarted Toprol-XL -> Increased to 75 mg on 05/28; now 100 mg. - Continue amiodarone at [address] per Dr[address] Sams. (4) Ventricular fibrillation: Plan: As above (5) Cardiogenic shock: Plan: Now weaned off vasopressors. - Restarted Toprol-XL on 05/27. Increased to 100 mg on 05/29. - Restart RUSSEL inhibitor when blood pressure can tolerate (6) Respiratory failure with hypoxia: Plan: Secondary to cardiogenic shock and cardiac arrest, now extubated. (7) Elevated troponin: Plan: Troponin peaked at 1.5 after cardiac arrest. This is secondary to cardiac contusion and also secondary to hypoperfusion. No urgent need for cardiac cath eterization. - Outpatient f/u (8) Sepsis: Plan: Presented with fevers, leukocytosis, tachycardia, and source of infection being both pneumonia and UTI. SEPSIS, POA. (9) Urinary tract infection: Plan: Abnormal UA although without any urinary symptoms. Urine culture with Klebsiella pansens. - Abx as for PNA (10) Duodenitis: Plan: Noted on CT abdomen/pelvis from admission. She initially had nausea but no vomiting, no melena or hematemesis. Could certainly have peptic ulcer disease given long history of chronic prednisone. - Continue Protonix 40 mg PO BID - Monitor for any evidence of GI bleeding - No need for GI consultation or endoscopy at this point (11) Hyponatremia: Plan: Likely secondary to hypovolemia initially, possibly some SIADH from PNA. - Sodium mildly low at 132 and stable from yesterday. (12) Osteoporosis, unspecified: Plan: - Hold home calcium carbonate-vitamin D (13) Chronic anticoagulation: Plan: - Continue Eliquis (14) Hypertension: Plan: BP today is 115/90. - Holding home diltiazem and lisinopril - Restarted metoprolol XL on 05/27; increased as above (15) Cardiomyopathy: Plan: With a history of HFrEF that had improved. Now with worsening EF as above secondary to cardiac arrest and cardiogenic shock-LVEF now 30-35%. - Lasix 20 mg IV given on 05/31 for some mild edema. Euvolemic today. (16) Rheumatoid arthritis: Plan: Managed with methotrexate 10 mg, etanercept, & chronic prednisone. - Hold home methotrexate and Enbrel while acutely infected - Transitioned to prednisone on 05/28; will decrease for tomorrow to 10 mg. -> Patient no longer sees a menswear salesperson on a regular basis since her provider left. She gets all her refills from Dr. Madden. I discussed the case with Rd Madden and an outside menswear salesperson who recommended only holding until done with antibiotics and feeling better, so likely can resume usual RA medications next Saturday. (17) Anxiety: Plan: - Continue home lorazepam as needed (18) PAD (peripheral artery disease): Plan: With a history of angioplasty and stenting in bilateral legs with vascular surgery. - Continue Plavix & statin Admission and Anticipated Discharge Date Admission Date: May 23, 2021 Subjective Doing fairly well today. No major shortness of breath. Seen after ICD implantation. Feels tired, but well. Reports no fevers/chills, chest pain, abdominal pain, nausea, or vomiting. Physical Exam Constitutional: WD/WN, vitals as above Eyes: EOM intact bilaterally; no conjunctival abnormality ENMT: external ear and nose normal, oropharynx normal Neck: trachea midline, no thyromegaly normal visual inspection Respiratory: normal respiratory effort, lungs clear to auscultation no respiratory distress Auscultation: + rhonchi Cardiovascular: Rate/Rhythm: + tachycardic and + irregularly irregular Chest (Breasts): Chest: + pacemaker (Bandage with one small area of blood) Gastrointestinal (Abdomen): Inspection/Auscultation: abdomen normal to inspection; abdomen not distended Musculoskeletal: no cyanosis or clubbing, extremities motor strength 5/5 Skin: no rashes, warm and dry Neurologic: moves all extremities and awake Psychiatric: Orientation: alert, oriented to person and cooperative Results & Data Results & Data ([facility]) Vital Signs (Past 12 Hours) Vital Signs Temp Pulse Pulse Resp BP BP Pulse Ox 06/01/21 10:00 101 H 17 117/86 06/01/21 09:45 101 H 19 06/01/21 09:30 107 H 22 127/93 06/01/21 09:15 114 H 26 H 145/95 H 06/01/21 09:00 97 H 23 128/93 06/01/21 08:45 107 H 23 137/102 H 06/01/21 08:37 107 H 18 143/106 H 06/01/21 04:00 36.5 C 99 H 24 127/99 95 PG Care Time/CCT Total # of Minutes Spent Total Time Spent with Patient: Total time spent is greater than 50% in coordination of care (as documented) at patient's floor/unit and/or counseling patient: Coding Level of Care Code 39111 Subseq Hosp Care Lvl 2 Diagnoses Pneumonia J18.9 Laterality: right Lung location: upper lobe of lung Pneumonia type: due to unspecified organism Cardiac arrest I46.9 Permanent atrial fibrillation I48.21 Ventricular fibrillation I49.01 Cardiogenic shock R57.0 Respiratory failure with hypoxia J96.91 Elevated troponin R77.8 Sepsis A41.9 Urinary tract infection N39.0 Hematuria presence: without hematuria Urinary tract infection type: site unspecified Duodenitis K29.80 Hyponatremia E87.1 Osteoporosis, unspecified M81.0 Osteoporosis type: age-related Presence of current pathological fracture: without current pathological fracture Chronic anticoagulation Z79.01 Hypertension I10 Hypertension type: essential hypertension Cardiomyopathy I42.9 Cardiomyopathy type: unspecified Rheumatoid arthritis M05.79 Rheumatoid arthritis location: multiple sites Rheumatoid factor presence: with rheumatoid factor Anxiety F41.9 PAD (peripheral artery disease) I73.9 (1) Pneumonia Laterality: right Lung location: upper lobe of lung Pneumonia type: due to unspecified organism Qualified Code(s): J18.9 - Pneumonia, unspecified organism (2) Urinary tract infection Hematuria presence: without hematuria Urinary tract infection type: site unspecified Qualified Code(s): N39.0 - Urinary tract infection, site not specified (3) Osteoporosis, unspecified Osteoporosis type: age-related Presence of current pathological fracture: without current pathological fracture Qualified Code(s): M81.0 - Age-related osteoporosis without current pathological fracture (4) Hypertension Hypertension type: essential hypertension Qualified Code(s): I10 - Essential (primary) hypertension (5) Cardiomyopathy Cardiomyopathy type: unspecified Qualified Code(s): I42.9 - Cardiomyopathy, unspecified (6) Rheumatoid arthritis Rheumatoid arthritis location: multiple sites Rheumatoid factor presence: with rheumatoid factor Qualified Code(s): M05.79 - Rheumatoid arthritis with rheumatoid factor of multiple sites without organ or systems involvement
--- NOTE | 2021-06-01 15:18 | Cardiology Progress Note ---
Date of Service June 01, 2021 Assessment & Plan (1) Cardiac arrest: (2) Cardiomyopathy: (3) Elevated troponin: (4) Permanent atrial fibrillation: Plan: ASSESSMENT/PLAN: 1. Cardiac arrest/ventricular fibrillation: No recurrent arrhythmias. Single- chamber Medtronic ICD implanted today without evident complication. We will perform a chest x-ray and reinterrogation of the device tomorrow. She should refrain from lifting her left arm above the shoulder behind the neck for 6 weeks. She should keep the Steri-Strips on the wound and refrain from getting it wet for 5 days. I will arrange for her to have a follow-up appointment in the clinic to check her wound. 2. Cardiomyopathy: Repeat echocardiogram yesterday revealed persistent LV dysfunction. We will continue her metoprolol succinate. We will continue amiodarone. We will add RUSSEL inhibitor. She seems well compensated. We will need to monitor her closely for evidence of volume overload. 3. Permanent atrial fibrillation: Slightly better at rest today. We will continue amiodarone and metoprolol succinate. She may require a slightly increased dose of metoprolol succinate. I think I will give her a dose of lisinopril first and monitor her blood pressure. Since she underwent device implant, I would recommend holding her apixaban until 06/04/2021 Admission and Anticipated Discharge Date Admission Date: May 23, 2021 Subjective This morning the patient reported feeling fatigued and tired. She was somewhat frustrated with her overall weakness. She did not report breathing difficulty. Some continued discomfort involving the ribs. Review of Systems Review of Systems: Per HPI Physical Exam Physical Exam: She is alert and oriented x3. Mood affect appear normal. She answered all questions appropriately. HEENT: Sclerae are anicteric. Pupils are equal and reactive to light and accommodation. Extraocular movements were intact. Neuro: Cranial nerves intact Lungs: normal respiratory effort Extremities: Patient has bilateral radial pulses that are equal in intensity. There is no evidence cyanosis or clubbing. Normal edema Skin: There are no rashes noted on examination today. ENMT: Mallampati Class: III Respiratory: normal respiratory effort Cardiovascular: Rate/Rhythm: + tachycardic and + irregularly irregular Results & Data ([facility]) Vital Signs (Past 12 Hours) Vital Signs Temp Pulse Pulse Resp BP BP Pulse Ox 06/01/21 10:00 101 H 17 117/86 06/01/21 09:45 101 H 19 06/01/21 09:30 107 H 22 127/93 06/01/21 09:15 114 H 26 H 145/95 H 06/01/21 09:00 97 H 23 128/93 06/01/21 08:45 107 H 23 137/102 H 06/01/21 08:37 107 H 18 143/106 H 06/01/21 04:00 36.5 C 99 H 24 127/99 95 Laboratory Results Abnormal Lab Results 06/01/21 06/01/21 04:32 04:32 WBC 21.76 H RBC 3.83 L Hgb 12.4 Hct 37.3 MCV 97.4 MCH 32.4 MCHC 33.2 RDW Std Deviation 52.7 H RDW Coeff of Libra 15.0 H Plt Count 393 MPV 9.3 Immature Gran % (Auto) 3.6 Neut % (Auto) 79.6 Lymph % (Auto) 9.1 [place] % (Auto) 7.1 Eos % (Auto) 0.5 Baso % (Auto) 0.1 Neut # (Auto) 17.32 H Lymph # (Auto) 1.97 [place] # (Auto) 1.55 H Eos # (Auto) 0.11 Baso # (Auto) 0.02 Immature Gran # (Auto) 0.79 H RBC Morphology Unremarkable Sodium 133 L Potassium 4.0 Chloride 102 Carbon Dioxide 23 Anion Gap 8 BUN 36 H Creatinine 0.94 Est Cr Clr Drug Dosing 39.5 Est GFR ( Amer) 66.4 Est GFR (Non-Af Amer) 57.3 BUN/Creatinine Ratio 38.3 H Glucose 120 H Calcium 8.3 L Magnesium 1.9 (1) Cardiomyopathy Cardiomyopathy type: unspecified Qualified Code(s): I42.9 - Cardiomyopathy, unspecified
[2021-06-01] MEDS ORDERED: lisinopril 2.5 MG TAB PO ONE (20:00)
[2021-06-02 05:36] LABS: Hematocrit (blood only) 37.1 % (37-47); Hemoglobin 12.2 g/dL (12.0-16.0); Mean Corpuscular Hemoglobin 32.4 pg (25-34); Mean Corpuscular Hgb Conc 32.9 g/dL (32-36); Mean Corpuscular Volume 98.4 fL (80-100); Mean Platelet Volume 9.4 fL (7.4-10.4); Nucleated RBC # (auto) 0.07 K/uL (0-0); Nucleated RBC % (auto) 0.4 %; Platelet Count 363 K/uL (130-400); RDW Coefficient of Variation 15.2 % (11.5-14.5); RDW Standard Deviation 53.7 fL (36.4-46.3); Red Blood Count 3.77 M/uL (4.2-5.4); White Blood Count 20.18 K/uL (4.8-10.8)
[2021-06-02 05:58] LABS: BUN Creatinine Ratio 45.9 (10-20); Calcium 8.4 mg/dl (8.5-10.1); Creatinine Clr Calc Pharmacy 43.7 ml/min; Est GFR (Non-African American) 64.7 ml/min; Magnesium 1.9 mg/dl (1.7-2.4)
[2021-06-02] MEDS: predniSONE 10 MG TABLET PO SCH (08:53)
[2021-06-02] MEDS: METOPROLOL SUCC 50MG EXT REL TAB PO SCH (08:53)
[2021-06-02] MEDS: AMIODARONE 200 MG TAB PO SCH ×2 (08:53→17:20)
[2021-06-02] MEDS: FOLIC ACID 1 MG TAB PO SCH (08:53)
[2021-06-02] MEDS: PANTOprazole 40 MG TAB PO SCH ×2 (08:53→20:56)
[2021-06-02] MEDS: LIDOCAINE 5% 1 PATCH TD SCH (08:54)
[2021-06-02] MEDS: CLOPIDOGREL BISULFATE 75 MG TAB PO SCH (08:54)
--- NOTE | 2021-06-02 10:10 | XRay Report ---
XR chest 2V PA/lateral CLINICAL HISTORY: EXACT TIME ORDERED Evaluate for pneumothorax and l TECHNIQUE: AP and lateral radiographs of the chest was obtained. Comparison: Comparison is made to chest 2 views 05/26/2021 FINDINGS: Stable single lead pacemaker defibrillator. Cardiomegaly is noted. Right upper lobe airspace opacity is less conspicuous than on the prior exam. There is a trace right pleural effusion. No evidence of p neumothorax is seen. IMPRESSION: Interval slight improvement in right upper lung airspace opacity. No evidence of pneumothorax. Stable cardiomegaly. ACT 112: Negative or not required by law. Electronically signed by: Pk Cross M.D. 06/02/2021 10:09 AM
[2021-06-02] MEDS: ROSUVASTATIN CALCIUM 5 MG TAB PO SCH (10:11)
--- NOTE | 2021-06-02 14:09 | Hospitalist Progress Note ---
Date of Service June 02, 2021 Assessment & Plan (1) Pneumonia: Plan: CT chest on 05/26 right upper lobe consolidative airspace opacity with associated air bronchograms. Covid-19 and influenza A/B both negative. - On cefepime/doxycycline per pulmonology. Feel that with her immune suppression, she is at risk for more extended bacterial illnesses. - Repeated CT chest on 05/28 as she had faster respiratory rate and continue hypoxemia. No change in appearance. -> Stable today. Finished antibiotics on 06/01 for a 10-day course. -> Procalcitonin negative on the (2) Cardiac arrest: Plan: Had V. fib arrest on the evening of 05/25 CODE BLUE was called and CPR was started. Received 1 shock and 1 mg of epi and achieved ROSC. Was intubated overnight on 05/25 and extubated on the morning of 05/26. - Per Dr. Daley, appears to be idiopathic, primary Vfib. -> ICD 06/[address] Sams. No complications noted. refrain from lifting her left arm above the shoulder behind the neck for 6 weeks (3) Permanent atrial fibrillation: Plan: Rapid afib persisted for the first 2 days of admission - likely secondary to se psis and hypovolemia. Patient managed by Dr. Sams (yearly visits). Now on amiodarone PO and rates are improved in the low 100s. - [facility] - Restarted Toprol-XL -> Increased to 75 mg on 05/28; now 100 mg. - Continue amiodarone at [address] per Dr[address] Sams. (4) Ventricular fibrillation: Plan: As above (5) Cardiogenic shock: Plan: Now weaned off vasopressors. - Restarted Toprol-XL on 05/27. Increased to 100 mg on 05/29. - Restart lisinopril 5mg PO daily (06/03) (6) Respiratory failure with hypoxia: Plan: Secondary to cardiogenic shock and cardiac arrest, now extubated. (7) Elevated troponin: Plan: Troponin peaked at 1.5 after cardiac arrest. This is secondary to cardiac contusion and also secondary to hypoperfusion. No urgent need for cardiac catheterization. - Outpatient f/u (8) Sepsis: Plan: Presented with fevers, leukocytosis, tachycardia, and source of infection being both pneumonia and UTI. SEPSIS, POA. (9) Urinary tract infection: Plan: Abnormal UA although without any urinary symptoms. Urine culture with Klebsiella pansens. - Abx as for PNA (10) Duodenitis: Plan: Noted on CT abdomen/pelvis from admission. She initially had nausea but no vomiting, no melena or hematemesis. Could certainly have peptic ulcer disease given long history of chronic prednisone. - Continue Protonix 40 mg PO BID - Monitor for any evidence of GI bleeding - No need for GI consultation or endoscopy at this point (11) Hyponatremia: Plan: Likely secondary to hypovolemia initially, possibly some SIADH from PNA. Remained stable (12) Osteoporosis, unspecified: Plan: - Hold home calcium carbonate-vitamin D (13) Hypertension: Plan: BP today is 115/90. - Holding home diltiazem -Metoprolol and lisinopril as above (14) Cardiomyopathy: Plan: With a history of HFrEF that had improved. Now with worsening EF as above secondary to cardiac arrest and cardiogenic shock-LVEF now 30-35%. - Lasix 20 mg IV given on 05/31 for some mild edema. Remains euvolemic following this. (15) Rheumatoid arthritis: Plan: Managed with methotrexate 10 mg, etanercept, & chronic prednisone. - Hold home methotrexate and Enbrel while acutely infected - Transitioned to prednisone on 05/28; continue on 10 mg daily pending restarting her other medications to avoid a flare given continued elevated white blood count I suspect this is due to her rheumatoid disease. -> Patient no longer sees a franchise business consultant on a regular basis since her provider left. She gets all her refills from Dr. Madden. Prior provider discussed the case with Rd Madden and an outside franchise business consultant who recommended only holding until done with antibiotics and feeling better, so likely can resume us ual RA medications next Saturday. (16) Anxiety: Plan: - Continue home lorazepam as needed (17) PAD (peripheral artery disease): Plan: With a history of angioplasty and stenting in bilateral legs with vascular surgery. - Continue Plavix & statin Plan: VTE Prophylaxis - Eliquis on hold due to ICD implant 06/01 Diet - heart healthy Disposition - medically stable for discharge at this time Admission and Anticipated Discharge Date Admission Date: May 23, 2021 Subjective Ongoing weakness and generalized fatigue. Generally doing extremely well considering she had a ventricular fibrillation arrest 8 days ago. No fever or chills. Procalcitonin negative on the . Antibiotics stopped today. Review of Systems Review of Systems: All systems reviewed & are unremarkable except as noted in Subjective Physical Exam Constitutional: WD/WN, vitals as above + frail appearing; no acute distress ENMT: external ear and nose normal, oropharynx normal Respiratory: normal respiratory effort; no respiratory distress Auscultation: + crackles (right posterior) Cardiovascular: Rate/Rhythm: + tachycardic and + irregularly irregular Gastrointestinal (Abdomen): Inspection/Auscultation: normal bowel sounds Percussion/Palpation: abdomen soft; abdomen nontender, no guarding and abdomen not rigid Musculoskeletal: no cyanosis or clubbing, extremities motor strength 5/5 Skin: no rashes, warm and dry Neurologic: moves all extremities and awake; not confused Psychiatric: A+Ox3, euthymic affect Results & Data Results & Data ([facility]) Vital Signs (Past 12 Hours) Vital Signs Temp Pulse Pulse Resp BP BP BP 06/02/21 12:15 102 H 22 122/93 06/02/21 08:00 105 H 06/02/21 07:54 121/81 06/02/21 07:39 36.5 C 105 H 21 124/100 Pulse Ox 06/02/21 12:15 94 06/02/21 08:00 06/02/21 07:54 06/02/21 07:39 98 PG Care Time/CCT Total # of Minutes Spent Total Time Spent with Patient: Total time spent is greater than 50% in coordination of care (as documented) at patient's floor/unit and/or counseling patient: Coding Level of Care Code 26679 Subseq Hosp Care Lvl 2 Diagnoses Pneumonia J18.9 Laterality: right Lung location: upper lobe of lung Pneumonia type: due to unspecified organism Cardiac arrest I46.9 Permanent atrial fibrillation I48.21 Ventricular fibrillation I49.01 Cardiogenic shock R57.0 Respiratory failure with hypoxia J96.91 Elevated troponin R77.8 Sepsis A41.9 Urinary tract infection N39.0 Hematuria presence: without hematuria Urinary tract infection type: site unspecified Duodenitis K29.80 Hyponatremia E87.1 Osteoporosis, unspecified M81.0 Osteoporosis type: age-related Presence of current pathological fracture: without current pathological fracture Hypertension I10 Hypertension type: essential hypertension Cardiomyopathy I42.9 Cardiomyopathy type: unspecified Rheumatoid arthritis M05.79 Rheumatoid arthritis location: multiple sites Rheumatoid factor presence: with rheumatoid factor Anxiety F41.9 PAD (peripheral artery disease) I73.9 (1) Urinary tract infection Hematuria presence: without hematuria Urinary tract infection type: site unspecified Qualified Code(s): N39.0 - Urinary tract infection, site not specified (2) Rheumatoid arthritis Rheumatoid arthritis location: multiple sites Rheumatoid factor presence: with rheumatoid factor Qualified Code(s): M05.79 - Rheumatoid arthritis with rheumatoid factor of multiple sites without organ or systems involvement (3) Osteoporosis, unspecified Osteoporosis type: age-related Presence of current pathological fracture: without current pathological fracture Qualified Code(s): M81.0 - Age-related osteoporosis without current pathological fracture (4) Hypertension Hypertension type: essential hypertension Qualified Code(s): I10 - Essential (primary) hypertension (5) Cardiomyopathy Cardiomyopathy type: unspecified Qualified Code(s): I42.9 - Cardiomyopathy, unspecified (6) Pneumonia Laterality: right Lung location: upper lobe of lung Pneumonia type: due to unspecified organism Qualified Code(s): J18.9 - Pneumonia, unspecified organism
--- NOTE | 2021-06-02 14:18 | Cardiology Progress Note ---
Date of Service June 02, 2021 Assessment & Plan (1) Status post implantation of automatic cardioverter/defibrillator (AICD): Plan: Postop day #1: Incision looks good, she has no significant discomfort. Stable for discharge from our standpoint. We will arrange follow-up. Admission and Anticipated Discharge Date Admission Date: May 23, 2021 Subjective She is postop day #1 following ICD implantation yesterday, she has no incisional discomfort and overall feels well. Physical Exam Physical Exam: The incision is clean and dry, dressing changed. No swelling or erythema. Cardiac rhythm is irregular without rub. Lungs are clear Results & Data ([facility]) Vital Signs (Past 12 Hours) Vital Signs Temp Pulse Pulse Resp BP BP BP 06/02/21 12:15 102 H 22 122/93 06/02/21 08:00 105 H 06/02/21 07:54 121/81 06/02/21 07:39 36.5 C 105 H 21 124/100 Pulse Ox 06/02/21 12:15 94 06/02/21 08:00 06/02/21 07:54 06/02/21 07:39 98 Laboratory Results CBC 06/02/21 Range/Units 05:12 WBC 20.18 H (4.8-10.8) K/uL RBC 3.77 L (4.2-5.4) M/uL Hgb 12.2 (12.0-16.0) g/dL Hct 37.1 (37-47) % Plt Count 363 (130-400) K/uL Comprehensive Metabolic Panel 06/02/21 Range/Units 05:12 Sodium 133 L (136-145) mmol/L Potassium 4.0 (3.5-5.1) mmol/L Chloride 102 (98-107) mmol/L Carbon Dioxide 24 (21-32) mmol/L BUN 39 H (6-23) mg/dl Creatinine 0.85 (0.6-1.2) mg/dl Glucose 89 (70-99(Fasting)) mg/dl Calcium 8.4 L (8.5-10.1) mg/dl Intake and Output 06/01/21 06/02/21 06/02/21 22:59 06:59 14:59 Intake Total 100 / 630 170 / 630 Output Total 200 / 350 350 / 350 Balance 100 / 280 -30 / 280 -350 / -350 Intake: IV 110 / 220 Doxycycline Hyclate 100 mg In 110 / 220 Dextrose 5% 100 ml @ 50 mls/hr IV Q12H [facility] Rx#:[id number] Oral 100 / 410 60 / 410 Output: Urine 200 / 350 350 / 350 Other: Weight 53 kg Weight Measurement Method Built in [facility] Diagnostic Findings Telemetry: Atrial fibrillation, acceptable rate. ICD evaluation: Excellent pacing and sensing characteristics. PG Care Time/CCT Total # of Minutes Spent Total Time Spent with Patient: Total time spent is greater than 50% in coordination of care (as documented) at patient's floor/unit and/or counseling patient: Coding Level of Care Code 95808 Subseq Hosp Care Lvl 1 Diagnoses Status post implantation of automatic cardioverter/defibrillator (AICD) Z95.810 CPT Codes Implantable Defib Single Lead Programming - 96935 ([id number])
[2021-06-02] MEDS ORDERED: SODIUM CHLORIDE 0.9% 10ML FLUSH IV ONE (19:15)
[2021-06-02] MEDS ORDERED: MIDAZOLAM HCL 5 MG/ML VIAL IV ONE (19:15)
[2021-06-02] MEDS ORDERED: AMIODARONE HCL INJ 50 MG/ML 3 ML VIAL IV ONE (19:15)
[2021-06-02] MEDS ORDERED: DEXTROSE 5% 100 ML BAG IV ONE (19:15)
[2021-06-02] MEDS: traMADol HCL 50 MG TABLET PO PRN (20:56)
[2021-06-03] MEDS: AMIODARONE 200 MG TAB PO SCH ×2 (08:12→17:45)
[2021-06-03] MEDS: FOLIC ACID 1 MG TAB PO SCH (08:13)
[2021-06-03] MEDS: LIDOCAINE 5% 1 PATCH TD SCH (08:13)
[2021-06-03] MEDS: CLOPIDOGREL BISULFATE 75 MG TAB PO SCH (08:13)
[2021-06-03] MEDS: lisinopril 5 MG TAB PO SCH (08:13)
[2021-06-03] MEDS: METOPROLOL SUCC 50MG EXT REL TAB PO SCH (08:13)
[2021-06-03] MEDS: predniSONE 10 MG TABLET PO SCH (08:14)
[2021-06-03] MEDS: ROSUVASTATIN CALCIUM 5 MG TAB PO SCH (08:14)
[2021-06-03] MEDS: PANTOprazole 40 MG TAB PO SCH ×2 (08:14→20:21)
--- NOTE | 2021-06-03 11:13 | Hospitalist Progress Note ---
Date of Service June 03, 2021 Assessment & Plan (1) Pneumonia: Plan: CT chest on 05/26 right upper lobe consolidative airspace opacity with associated air bronchograms. Covid-19 and influenza A/B both negative. - On cefepime/doxycycline per pulmonology. Feel that with her immune suppression, she is at risk for more extended bacterial illnesses. - Repeated CT chest on 05/28 as she had faster respiratory rate and continue hypoxemia. No change in appearance. -> Stable today. Finished antibiotics on 06/01 for a 10-day course. -> Procalcitonin negative on the (2) Cardiac arrest: Plan: Had V. fib arrest on the evening of 05/25 CODE BLUE was called and CPR was started. Received 1 shock and 1 mg of epi and achieved ROSC. Was intubated overnight on 05/25 and extubated on the morning of 05/26. - Per Dr. Daley, appears to be idiopathic, primary Vfib. -> ICD 06/[address] Sams. No complications noted. refrain from lifting her left arm above the shoulder behind the neck for 6 weeks (3) Permanent atrial fibrillation: Plan: Rapid afib persisted for the first 2 days of admission - likely secondary to se psis and hypovolemia. Patient managed by Dr. Sams (yearly visits). Now on amiodarone PO and rates are improved in the low 100s. - Appreciate cardiology consultation - [facility] with restart date June 04 -will restart in AM. - Restarted Toprol-XL -> Increased to 75 mg on 05/28; now 100 mg. - Continue amiodarone at 400 [address] PO BID per Dr. Sams. (4) Ventricular fibrillation: Plan: As above (5) Cardiogenic shock: Plan: Now weaned off vasopressors. - Restarted Toprol-XL on 05/27. Increased to 100 mg on 05/29. - Restart lisinopril 5mg PO daily (06/03) (6) Respiratory failure with hypoxia: Plan: Secondary to cardiogenic shock and cardiac arrest, now extubated. (7) Elevated troponin: Plan: Troponin peaked at 1.5 after cardiac arrest. This is secondary to cardiac contusion and also secondary to hypoperfusion. No urgent need for cardiac catheterization. - Outpatient f/u (8) Sepsis: Plan: Presented with fevers, leukocytosis, tachycardia, and source of infection being both pneumonia and UTI. SEPSIS, POA. (9) Urinary tract infection: Plan: Abnormal UA although without any urinary symptoms. Urine culture with Klebsiella pansens. - Abx as for PNA (10) Duodenitis: Plan: Noted on CT abdomen/pelvis from admission. She initially had nausea but no vomiting, no melena or hematemesis. Could certainly have peptic ulcer disease given long history of chronic prednisone. - Continue Protonix 40 mg PO BID - Monitor for any evidence of GI bleeding - No need for GI consultation or endoscopy at this point (11) Hyponatremia: Plan: Likely secondary to hypovolemia initially, possibly some SIADH from PNA. Remained stable (12) Osteoporosis, unspecified: Plan: - Hold home calcium carbonate-vitamin D (13) Hypertension: Plan: BP today is 115/90. - Holding home diltiazem -Metoprolol and lisinopril as above (14) Cardiomyopathy: Plan: With a history of HFrEF that had improved. Now with worsening EF as above secondary to cardiac arrest and cardiogenic shock-LVEF now 30-35%. - Lasix 20 mg IV given on 05/31 for some mild edema. Remains euvolemic following this. (15) Rheumatoid arthritis: Plan: Managed with methotrexate 10 mg, etanercept, & chronic prednisone. - Hold home methotrexate and Enbrel while acutely infected - Transitioned to prednisone on 05/28; continue on 10 mg daily pending restarting her other medications to avoid a flare given continued elevated white blood count I suspect this is due to her rheumatoid disease. -> Patient no longer sees a buncher machine on a regular basis since her provider left. She gets all her refills from Dr. Madden. Prior provider discussed the case with Rd Madden and an outside buncher machine who recommended only holding until done with antibiotics and feeling better, so likely can resume usual RA medications next Saturday. Will consider downgrade from Tele to medical. (16) Anxiety: Plan: - Continue home lorazepam as needed (17) PAD (peripheral artery disease): Plan: With a history of angioplasty and stenting in bilateral legs with vascular surgery. - Continue Plavix & statin Plan: VTE Prophylaxis - Eliquis on hold due to ICD implant 06/01 Diet - heart healthy Disposition - medically stable for discharge at this time Admission and Anticipated Discharge Date Admission Date: May 23, 2021 Subjective 80 yo female reports main complaint are her ribs and her weakness. Patient reports no new symptoms. Review of Systems Review of Systems: All systems reviewed & are unremarkable except as noted in HPI & below Physical Exam Physical Exam: Constitutional: WD/WN, vitals as above + frail appearing; no acute distress ENMT: external ear and nose normal, oropharynx normal Respiratory: normal respiratory effort; no respiratory distress Auscultation: + crackles (right posterior) Cardiovascular: Rate/Rhythm: + tachycardic and + irregularly irregular Gastrointestinal (Abdomen): Inspection/Auscultation: normal bowel sounds Percussion/Palpation: abdomen soft; abdomen nontender, no guarding and abdomen not rigid Musculoskeletal: no cyanosis or clubbing, extremities motor strength 5/5 Skin: no rashes, warm and dry Neurologic: moves all extremities and awake; not confused Psychiatric: A+Ox3, euthymic affect Results & Data Results & Data ([facility]) Vital Signs (Past 12 Hours) Vital Signs Temp Pulse Pulse Pulse Resp BP Pulse Ox 06/03/21 09:00 90 06/03/21 08:00 36.5 C 103 H 22 121/70 95 06/03/21 00:00 36.9 C 76 76 20 148/91 H 95 PG Care Time/CCT Total # of Minutes Spent Total Time Spent with Patient: Total time spent is greater than 50% in coordination of care (as documented) at patient's floor/unit and/or counseling patient: Coding Level of Care Code 27075 Subseq Hosp Care Lvl 2 Diagnoses Pneumonia J18.9 Laterality: right Lung location: upper lobe of lung Pneumonia type: due to unspecified organism Cardiac arrest I46.9 Permanent atrial fibrillation I48.21 Ventricular fibrillation I49.01 Cardiogenic shock R57.0 Respiratory failure with hypoxia J96.91 Elevated troponin R77.8 Sepsis A41.9 Urinary tract infection N39.0 Hematuria presence: without hematuria Urinary tract infection type: site unspecified Duodenitis K29.80 Hyponatremia E87.1 Osteoporosis, unspecified M81.0 Osteoporosis type: age-related Presence of current pathological fracture: without current pathological fracture Hypertension I10 Hypertension type: essential hypertension Cardiomyopathy I42.9 Cardiomyopathy type: unspecified Rheumatoid arthritis M05.79 Rheumatoid arthritis location: multiple sites Rheumatoid factor presence: with rheumatoid factor Anxiety F41.9 PAD (peripheral artery disease) I73.9 Time Spent (min) 25 (1) Urinary tract infection Hematuria presence: without hematuria Urinary tract infection type: site unspecified Qualified Code(s): N39.0 - Urinary tract infection, site not specified (2) Rheumatoid arthritis Rheumatoid arthritis location: multiple sites Rheumatoid factor presence: with rheumatoid factor Qualified Code(s): M05.79 - Rheumatoid arthritis with rheumatoid factor of multiple sites without organ or systems involvement (3) Osteoporosis, unspecified Osteoporosis type: age-related Presence of current pathological fracture: without current pathological fracture Qualified Code(s): M81.0 - Age-related osteoporosis without current pathological fracture (4) Hypertension Hypertension type: essential hypertension Qualified Code(s): I10 - Essential (primary) hypertension (5) Cardiomyopathy Cardiomyopathy type: unspecified Qualified Code(s): I42.9 - Cardiomyopathy, unspecified (6) Pneumonia Laterality: right Lung location: upper lobe of lung Pneumonia type: due to unspecified organism Qualified Code(s): J18.9 - Pneumonia, unspecified organism
[2021-06-04] MEDS ORDERED: Nursing to Pharmacy Communication SCH (03:00)
[2021-06-04 07:57] LABS: Hematocrit (blood only) 37.4 % (37-47); Hemoglobin 12.4 g/dL (12.0-16.0); Mean Corpuscular Hemoglobin 33.1 pg (25-34); Mean Corpuscular Hgb Conc 33.2 g/dL (32-36); Mean Corpuscular Volume 99.7 fL (80-100); Mean Platelet Volume 9.4 fL (7.4-10.4); Platelet Count 287 K/uL (130-400); RDW Coefficient of Variation 15.5 % (11.5-14.5); RDW Standard Deviation 55.2 fL (36.4-46.3); Red Blood Count 3.75 M/uL (4.2-5.4); White Blood Count 15.65 K/uL (4.8-10.8)
[2021-06-04 08:19] LABS: BUN Creatinine Ratio 37.8 (10-20); Calcium 8.3 mg/dl (8.5-10.1); Creatinine Clr Calc Pharmacy 45.3 ml/min; Est GFR (African American) 78.3 ml/min; Est GFR (Non-African American) 67.6 ml/min; Potassium 3.9 mmol/L (3.5-5.1)
[2021-06-04] MEDS: CLOPIDOGREL BISULFATE 75 MG TAB PO SCH (09:14)
[2021-06-04] MEDS: AMIODARONE 200 MG TAB PO SCH ×2 (09:14→17:29)
[2021-06-04] MEDS: METOPROLOL SUCC 50MG EXT REL TAB PO SCH (09:15)
[2021-06-04] MEDS: lisinopril 5 MG TAB PO SCH (09:15)
[2021-06-04] MEDS: FOLIC ACID 1 MG TAB PO SCH (09:15)
[2021-06-04] MEDS: PANTOprazole 40 MG TAB PO SCH ×2 (09:16→20:42)
[2021-06-04] MEDS: predniSONE 10 MG TABLET PO SCH (09:17)
[2021-06-04] MEDS: LIDOCAINE 5% 1 PATCH TD SCH (09:17)
[2021-06-04] MEDS: ROSUVASTATIN CALCIUM 5 MG TAB PO SCH (09:17)
[2021-06-04] MEDS: APIXABAN 5 MG TABLET PO SCH ×2 (10:00→20:42)
--- NOTE | 2021-06-04 19:57 | Hospitalist Progress Note ---
Date of Service June 04, 2021 Assessment & Plan (1) Pneumonia: Plan: CT chest on 05/26 right upper lobe consolidative airspace opacity with associated air bronchograms. Covid-19 and influenza A/B both negative. - On cefepime/doxycycline per pulmonology. Feel that with her immune suppression, she is at risk for more extended bacterial illnesses. - Repeated CT chest on 05/28 as she had faster respiratory rate and continue hypoxemia. No change in appearance. -> Stable today. Finished antibiotics on 06/01 for a 10-day course. -> Procalcitonin negative on the (2) Cardiac arrest: Plan: Had V. fib arrest on the evening of 05/25 CODE BLUE was called and CPR was started. Received 1 shock and 1 mg of epi and achieved ROSC. Was intubated overnight on 05/25 and extubated on the morning of 05/26. - Per Dr. Daley, appears to be idiopathic, primary Vfib. -> ICD 06/[address] Sams. No complications noted. refrain from lifting her left arm above the shoulder behind the neck for 6 weeks (3) Permanent atrial fibrillation: Plan: Rapid afib persisted for the first 2 days of admission - likely secondary to se psis and hypovolemia. Patient managed by Dr. Sams (yearly visits). Now on amiodarone PO and rates are improved in the low 100s. - Appreciate cardiology consultation - Eliquis restarted on June 04 - Restarted Toprol-XL -> Increased to 75 mg on 05/28; now 100 mg. - Continue amiodarone at [address] per Dr. Sams. (4) Ventricular fibrillation: Plan: As above (5) Cardiogenic shock: Plan: Now weaned off vasopressors. - Restarted Toprol-XL on 05/27. Increased to 100 mg on 05/29. - Restart lisinopril 5mg PO daily (06/03) (6) Respiratory failure with hypoxia: Plan: Secondary to cardiogenic shock and cardiac arrest, now extubated. (7) Elevated troponin: Plan: Troponin peaked at 1.5 after cardiac arrest. This is secondary to cardiac contusion and also secondary to hypoperfusion. No urgent need for cardiac catheterization. - Outpatient f/u (8) Sepsis: Plan: Presented with fevers, leukocytosis, tachycardia, and source of infection being both pneumonia and UTI. SEPSIS, POA. (9) Urinary tract infection: Plan: Abnormal UA although without any urinary symptoms. Urine culture with Klebsiella pansens. - Abx as for PNA (10) Duodenitis: Plan: Noted on CT abdomen/pelvis from admission. She initially had nausea but no vomiting, no melena or hematemesis. Could certainly have peptic ulcer disease given long history of chronic prednisone. - Continue Protonix 40 mg PO BID - Monitor for any evidence of GI bleeding - No need for GI consultation or endoscopy at this point (11) Hyponatremia: Plan: Likely secondary to hypovolemia initially, possibly some SIADH from PNA. Remained stable (12) Osteoporosis, unspecified: Plan: - Hold home calcium carbonate-vitamin D (13) Hypertension: Plan: BP today is 115/90. - Holding home diltiazem -Metoprolol and lisinopril as above (14) Cardiomyopathy: Plan: With a history of HFrEF that had improved. Now with worsening EF as above secondary to cardiac arrest and cardiogenic shock-LVEF now 30-35%. - Lasix 20 mg IV given on 05/31 for some mild edema. Remains euvolemic following this. (15) Rheumatoid arthritis: Plan: Managed with methotrexate 10 mg, etanercept, & chronic prednisone. - Hold home methotrexate and Enbrel while acutely infected - Transitioned to prednisone on 05/28; continue on 10 mg daily pending restarting her other medications to avoid a flare given continued elevated white blood count I suspect this is due to her rheumatoid disease. -> Patient no longer sees a stagecraft teacher on a regular basis since her provider left. She gets all her refills from Dr. Madden. Prior provider discussed the case with Rd Madden and an outside stagecraft teacher who recommended only holding until done with antibiotics and feeling better, so likely can resume usual RA medications next Saturday. downgraded patient. (16) Anxiety: Plan: - Continue home lorazepam as needed (17) PAD (peripheral artery disease): Plan: With a history of angioplasty and stenting in bilateral legs with vascular surgery. - Continue Plavix & statin Plan: VTE Prophylaxis - Eliquis on hold due to ICD implant 06/01 Diet - heart healthy Disposition - medically stable for discharge at this time Admission and Anticipated Discharge Date Admission Date: May 23, 2021 Subjective Patient reports no new symptoms. Review of Systems Review of Systems: All systems reviewed & are unremarkable except as noted in HPI & below Physical Exam Physical Exam: Constitutional: WD/WN, vitals as above + frail appearing; no acute distress ENMT: external ear and nose normal, oropharynx normal Respiratory: normal respiratory effort; no respiratory distress Auscultation: + crackles (right posterior) Cardiovascular: Rate/Rhythm: + tachycardic and + irregularly irregular Gastrointestinal (Abdomen): Inspection/Auscultation: normal bowel sounds Percussion/Palpation: abdomen soft; abdomen nontender, no guarding and abdomen not rigid Musculoskeletal: no cyanosis or clubbing, extremities motor strength 5/5 Skin: no rashes, warm and dry Neurologic: moves all extremities and awake; not confused Psychiatric: A+Ox3, euthymic affect Results & Data Results & Data ([facility]) Vital Signs (Past 12 Hours) Vital Signs Temp Pulse Pulse Resp BP BP Pulse Ox 06/04/21 17:29 101 H 117/74 06/04/21 15:50 37 C 96 H 16 120/70 97 06/04/21 09:12 100 H 131/84 06/04/21 08:17 36.7 C 92 H 16 132/84 96 PG Care Time/CCT Total # of Minutes Spent Total Time Spent with Patient: Total time spent is greater than 50% in coordination of care (as documented) at patient's floor/unit and/or counseling patient: Coding Level of Care Code 71541 Subseq Hosp Care Lvl 2 Diagnoses Pneumonia J18.9 Laterality: right Lung location: upper lobe of lung Pneumonia type: due to unspecified organism Cardiac arrest I46.9 Permanent atrial fibrillation I48.21 Ventricular fibrillation I49.01 Cardiogenic shock R57.0 Respiratory failure with hypoxia J96.91 Elevated troponin R77.8 Sepsis A41.9 Urinary tract infection N39.0 Hematuria presence: without hematuria Urinary tract infection type: site unspecified Duodenitis K29.80 Hyponatremia E87.1 Osteoporosis, unspecified M81.0 Osteoporosis type: age-related Presence of current pathological fracture: without current pathological fracture Hypertension I10 Hypertension type: essential hypertension Cardiomyopathy I42.9 Cardiomyopathy type: unspecified Rheumatoid arthritis M05.79 Rheumatoid arthritis location: multiple sites Rheumatoid factor presence: with rheumatoid factor Anxiety F41.9 PAD (peripheral artery disease) I73.9 (1) Urinary tract infection Hematuria presence: without hematuria Urinary tract infection type: site unspecified Qualified Code(s): N39.0 - Urinary tract infection, site not specified (2) Rheumatoid arthritis Rheumatoid arthritis location: multiple sites Rheumatoid factor presence: with rheumatoid factor Qualified Code(s): M05.79 - Rheumatoid arthritis with rheumatoid factor of multiple sites without organ or systems involvement (3) Osteoporosis, unspecified Osteoporosis type: age-related Presence of current pathological fracture: without current pathological fracture Qualified Code(s): M81.0 - Age-related osteoporosis without current pathological fracture (4) Hypertension Hypertension type: essential hypertension Qualified Code(s): I10 - Essential (primary) hypertension (5) Cardiomyopathy Cardiomyopathy type: unspecified Qualified Code(s): I42.9 - Cardiomyopathy, unspecified (6) Pneumonia Laterality: right Lung location: upper lobe of lung Pneumonia type: due to unspecified organism Qualified Code(s): J18.9 - Pneumonia, unspecified organism
--- NOTE | 2021-06-05 10:08 | Cardiology Progress Note ---
Date of Service June 05, 2021 Assessment & Plan (1) Status post implantation of automatic cardioverter/defibrillator (AICD): (2) Cardiac arrest: (3) Ventricular fibrillation: (4) Atrial fibrillation with rapid ventricular response: (5) Cardiomyopathy: Plan: 1. Cardiac arrest/ventricular fibrillation: No recurrent arrhythmias. Single- chamber Medtronic ICD implanted without evident complication. Will continue beta-blockade. We will reduce amiodarone 400 mg daily. 2. Cardiomyopathy: On metoprolol succinate and lisinopril. The dose was increased 2 days ago. I think we will continue 5 mg of lisinopril currently. Appears well compensated at this time. We will need to monitor volume status closely. 3. Permanent atrial fibrillation: Heart rates appear improved overall. She has not done much activity. We could still see high heart rates with activity. Will continue current dose of metoprolol succinate and amiodarone. Eliquis has been resumed. Admission and Anticipated Discharge Date Admission Date: May 23, 2021 Subjective This morning the patient complains of persistent rib discomfort. This limits her breathing to some degree. She did not report being ambulatory yesterday. Her weakness is improved. Appetite improved. Review of Systems Review of Systems: Per HPI Physical Exam Physical Exam: She is alert and oriented x3. Mood affect appear normal. She answered all questions appropriately. HEENT: Sclerae are anicteric. Pupils are equal and reactive to light and accommodation. Extraocular movements were intact. Neuro: Cranial nerves intact Chest: Device implant site with some mild ecchymosis and dried blood. No drainage or erythema. No hematoma. Lungs: Lungs are clear to auscultation bilaterally. There are no rales wheezes or rhonchi. She has normal respiratory effort without use of accessory muscles. There is normal pulmonary excursion. Cardiac: The rhythm was irregular. Extremities: Patient has bilateral radial pulses that are equal in intensity. There is no evidence cyanosis or clubbing. Very mild lower extremity edema. Skin: There are no rashes noted on examination today. Results & Data ([facility]) Vital Signs (Past 12 Hours) Vital Signs Temp Pulse Resp BP Pulse Ox 06/05/21 07:38 36.5 C 87 16 136/87 95 (1) Cardiomyopathy Cardiomyopathy type: unspecified Qualified Code(s): I42.9 - Cardiomyopathy, unspecified
[2021-06-05] MEDS: AMIODARONE 200 MG TAB PO SCH ×2 (10:09→16:24)
[2021-06-05] MEDS: CLOPIDOGREL BISULFATE 75 MG TAB PO SCH (10:09)
[2021-06-05] MEDS: APIXABAN 5 MG TABLET PO SCH ×2 (10:09→21:53)
[2021-06-05] MEDS: METOPROLOL SUCC 50MG EXT REL TAB PO SCH (10:10)
[2021-06-05] MEDS: PANTOprazole 40 MG TAB PO SCH ×2 (10:10→20:47)
[2021-06-05] MEDS: FOLIC ACID 1 MG TAB PO SCH (10:10)
[2021-06-05] MEDS: lisinopril 5 MG TAB PO SCH (10:10)
[2021-06-05] MEDS: LIDOCAINE 5% 1 PATCH TD SCH (10:10)
[2021-06-05] MEDS: predniSONE 10 MG TABLET PO SCH (10:10)
[2021-06-05] MEDS: ROSUVASTATIN CALCIUM 5 MG TAB PO SCH (10:10)
--- NOTE | 2021-06-05 21:14 | Hospitalist Progress Note ---
Date of Service June 05, 2021 Assessment & Plan (1) Pneumonia: Plan: CT chest on 05/26 right upper lobe consolidative airspace opacity with associated air bronchograms. Covid-19 and influenza A/B both negative. - On cefepime/doxycycline per pulmonology. Feel that with her immune suppression, she is at risk for more extended bacterial illnesses. - Repeated CT chest on 05/28 as she had faster respiratory rate and continue hypoxemia. No change in appearance. -> Stable today. Finished antibiotics on 06/01 for a 10-day course. -> Procalcitonin negative on the -awaiting placement (2) Cardiac arrest: Plan: Had V. fib arrest on the evening of 05/25 CODE BLUE was called and CPR was started. Received 1 shock and 1 mg of epi and achieved ROSC. Was intubated overnight on 05/25 and extubated on the morning of 05/26. - Per Dr. Daley, appears to be idiopathic, primary Vfib. -> ICD 06/[address] Sams. No complications noted. refrain from lifting her left arm above the shoulder behind the neck for 6 weeks (3) Permanent atrial fibrillation: Plan: Rapid afib persisted for the first 2 days of admission - likely secondary to sepsis and hypovolemia. Patient managed by Dr. Sams (yearly visits). Now on amiodarone PO and rates are improved in the low 100s. - Appreciate cardiology consultation - Eliquis restarted on June 04 - Restarted Toprol-XL -> Increased to 75 mg on 05/28; now 100 mg. - Continue amiodarone at [address] per Dr[address] Sams. (4) Ventricular fibrillation: Plan: As above (5) Cardiogenic shock: Plan: Now weaned off vasopressors. - Restarted Toprol-XL on 05/27. Increased to 100 mg on 05/29. - Restart lisinopril 5mg PO daily (06/03) (6) Respiratory failure with hypoxia: Plan: Secondary to cardiogenic shock and cardiac arrest, now extubated. (7) Elevated troponin: Plan: Troponin peaked at 1.5 after cardiac arrest. This is secondary to cardiac contusion and also secondary to hypoperfusion. No urgent need for cardiac catheterization. - Outpatient f/u (8) Sepsis: Plan: Presented with fevers, leukocytosis, tachycardia, and source of infection being both pneumonia and UTI. SEPSIS, POA. (9) Urinary tract infection: Plan: Abnormal UA although without any urinary symptoms. Urine culture with Klebsiella pansens. - Abx as for PNA (10) Duodenitis: Plan: Noted on CT abdomen/pelvis from admission. She initially had nausea but no vomiting, no melena or hematemesis. Could certainly have peptic ulcer disease given long history of chronic prednisone. - Continue Protonix 40 mg PO BID - Monitor for any evidence of GI bleeding - No need for GI consultation or endoscopy at this point (11) Hyponatremia: Plan: Likely secondary to hypovolemia initially, possibly some SIADH from PNA. Remained stable (12) Osteoporosis, unspecified: Plan: - Hold home calcium carbonate-vitamin D (13) Hypertension: Plan: BP today is 115/90. - Holding home diltiazem -Metoprolol and lisinopril as above (14) Cardiomyopathy: Plan: With a history of HFrEF that had improved. Now with worsening EF as above secondary to cardiac arrest and cardiogenic shock-LVEF now 30-35%. - Lasix 20 mg IV given on 05/31 for some mild edema. Remains euvolemic following this. (15) Rheumatoid arthritis: Plan: Managed with methotrexate 10 mg, etanercept, & chronic prednisone. - Hold home methotrexate and Enbrel while acutely infected - Transitioned to prednisone on 05/28; continue on 10 mg daily pending restarting her other medications to avoid a flare given continued elevated white blood count I suspect this is due to her rheumatoid disease. -> Patient no longer sees a skeins yarn examiner on a regular basis since her provider left. She gets all her refills from Dr. Madden. Prior provider discussed the case with Rd Madden and an outside skeins yarn examiner who recommended only holding until done with antibiotics and feeling better, so likely can resume usual RA medications next Saturday. downgraded patient. (16) Anxiety: Plan: - Continue home lorazepam as needed (17) PAD (peripheral artery disease): Plan: With a history of angioplasty and stenting in bilateral legs with vascular surgery. - Continue Plavix & statin Plan: VTE Prophylaxis - Eliquis on hold due to ICD implant 06/01 Diet - heart healthy Disposition - medically stable for discharge at this time Admission and Anticipated Discharge Date Admission Date: May 23, 2021 Subjective Patient reports no new symptoms, Review of Systems Review of Systems: All systems reviewed & are unremarkable except as noted in HPI & below Physical Exam Physical Exam: Constitutional: WD/WN, vitals as above + frail appearing; no acute distress ENMT: external ear and nose normal, oropharynx normal Respiratory: normal respiratory effort; no respiratory distress Auscultation: + crackles (right posterior) Cardiovascular: Rate/Rhythm: + tachycardic and + irregularly irregular Gastrointestinal (Abdomen): Inspection/Auscultation: normal bowel sounds Percussion/Palpation: abdomen soft; abdomen nontender, no guarding and abdomen not rigid Musculoskeletal: no cyanosis or clubbing, extremities motor strength 5/5 Skin: no rashes, warm and dry Neurologic: moves all extremities and awake; not confused Psychiatric: A+Ox3, euthymic affect Results & Data Results & Data ([facility]) Vital Signs (Past 12 Hours) Vital Signs Temp Pulse Resp BP Pulse Ox 06/05/21 16:10 36.4 C L 87 16 109/59 L 96 PG Care Time/CCT Total # of Minutes Spent Total Time Spent with Patient: Total time spent is greater than 50% in coordination of care (as documented) at patient's floor/unit and/or counseling patient: Coding Level of Care Code 25465 Subseq Hosp Care Lvl 2 Diagnoses Pneumonia J18.9 Laterality: right Lung location: upper lobe of lung Pneumonia type: due to unspecified organism Cardiac arrest I46.9 Permanent atrial fibrillation I48.21 Ventricular fibrillation I49.01 Cardiogenic shock R57.0 Respiratory failure with hypoxia J96.91 Elevated troponin R77.8 Sepsis A41.9 Urinary tract infection N39.0 Hematuria presence: without hematuria Urinary tract infection type: site unspecified Duodenitis K29.80 Hyponatremia E87.1 Osteoporosis, unspecified M81.0 Osteoporosis type: age-related Presence of current pathological fracture: without current pathological fracture Hypertension I10 Hypertension type: essential hypertension Cardiomyopathy I42.9 Cardiomyopathy type: unspecified Rheumatoid arthritis M05.79 Rheumatoid arthritis location: multiple sites Rheumatoid factor presence: with rheumatoid factor Anxiety F41.9 PAD (peripheral artery disease) I73.9 (1) Pneumonia Laterality: right Lung location: upper lobe of lung Pneumonia type: due to unspecified organism Qualified Code(s): J18.9 - Pneumonia, unspecified organism (2) Urinary tract infection Hematuria presence: without hematuria Urinary tract infection type: site unspecified Qualified Code(s): N39.0 - Urinary tract infection, site not specified (3) Osteoporosis, unspecified Osteoporosis type: age-related Presence of current pathological fracture: without current pathological fracture Qualified Code(s): M81.0 - Age-related osteoporosis without current pathological fracture (4) Hypertension Hypertension type: essential hypertension Qualified Code(s): I10 - Essential (primary) hypertension (5) Cardiomyopathy Cardiomyopathy type: unspecified Qualified Code(s): I42.9 - Cardiomyopathy, unspecified (6) Rheumatoid arthritis Rheumatoid arthritis location: multiple sites Rheumatoid factor presence: with rheumatoid factor Qualified Code(s): M05.79 - Rheumatoid arthritis with rheumatoid factor of multiple sites without organ or systems involvement
[2021-06-06] MEDS: AMIODARONE 200 MG TAB PO SCH ×2 (08:44→17:19)
[2021-06-06] MEDS: ROSUVASTATIN CALCIUM 5 MG TAB PO SCH (08:45)
[2021-06-06] MEDS: lisinopril 5 MG TAB PO SCH (08:45)
[2021-06-06] MEDS: predniSONE 10 MG TABLET PO SCH (08:45)
[2021-06-06] MEDS: METOPROLOL SUCC 50MG EXT REL TAB PO SCH (08:45)
[2021-06-06] MEDS: FOLIC ACID 1 MG TAB PO SCH (08:45)
[2021-06-06] MEDS: LIDOCAINE 5% 1 PATCH TD SCH (08:46)
[2021-06-06] MEDS: APIXABAN 5 MG TABLET PO SCH ×2 (08:46→20:47)
[2021-06-06] MEDS: CLOPIDOGREL BISULFATE 75 MG TAB PO SCH (08:46)
[2021-06-06] MEDS: PANTOprazole 40 MG TAB PO SCH ×2 (08:46→20:48)
[2021-06-06] MEDS: traMADol HCL 50 MG TABLET PO PRN (09:11)
--- NOTE | 2021-06-06 20:49 | Hospitalist Progress Note ---
Date of Service June 06, 2021 Assessment & Plan (1) Pneumonia: Plan: CT chest on 05/26 right upper lobe consolidative airspace opacity with associated air bronchograms. Covid-19 and influenza A/B both negative. - On cefepime/doxycycline per pulmonology. Feel that with her immune suppression, she is at risk for more extended bacterial illnesses. - Repeated CT chest on 05/28 as she had faster respiratory rate and continue hypoxemia. No change in appearance. -> Stable today. Finished antibiotics on 06/01 for a 10-day course. -> Procalcitonin negative on the -awaiting placement (2) Cardiac arrest: Plan: Had V. fib arrest on the evening of 05/25 CODE BLUE was called and CPR was started. Received 1 shock and 1 mg of epi and achieved ROSC. Was intubated overnight on 05/25 and extubated on the morning of 05/26. - Per Dr. Daley, appears to be idiopathic, primary Vfib. -> ICD 06/[address] Sams. No complications noted. refrain from lifting her left arm above the shoulder behind the neck for 6 weeks (3) Permanent atrial fibrillation: Plan: Rapid afib persisted for the first 2 days of admission - likely secondary to sepsis and hypovolemia. Patient managed by Dr. Sams (yearly visits). Now on amiodarone PO and rates are improved in the low 100s. - Appreciate cardiology consultation - Eliquis restarted on June 04 - Restarted Toprol-XL -> Increased to 75 mg on 05/28; now 100 mg. - Continue amiodarone at [address] per Dr[address] Sams. (4) Ventricular fibrillation: Plan: As above (5) Cardiogenic shock: Plan: Now weaned off vasopressors. - Restarted Toprol-XL on 05/27. Increased to 100 mg on 05/29. - Restart lisinopril 5mg PO daily (06/03) (6) Respiratory failure with hypoxia: Plan: Secondary to cardiogenic shock and cardiac arrest, now extubated. (7) Elevated troponin: Plan: Troponin peaked at 1.5 after cardiac arrest. This is secondary to cardiac contusion and also secondary to hypoperfusion. No urgent need for cardiac catheterization. - Outpatient f/u (8) Sepsis: Plan: Presented with fevers, leukocytosis, tachycardia, and source of infection being both pneumonia and UTI. SEPSIS, POA. (9) Urinary tract infection: Plan: Abnormal UA although without any urinary symptoms. Urine culture with Klebsiella pansens. - Abx as for PNA (10) Duodenitis: Plan: Noted on CT abdomen/pelvis from admission. She initially had nausea but no vomiting, no melena or hematemesis. Could certainly have peptic ulcer disease given long history of chronic prednisone. - Continue Protonix 40 mg PO BID - Monitor for any evidence of GI bleeding - No need for GI consultation or endoscopy at this point (11) Hyponatremia: Plan: Likely secondary to hypovolemia initially, possibly some SIADH from PNA. Remained stable (12) Osteoporosis, unspecified: Plan: - Hold home calcium carbonate-vitamin D (13) Hypertension: Plan: BP today is 115/90. - Holding home diltiazem -Metoprolol and lisinopril as above (14) Cardiomyopathy: Plan: With a history of HFrEF that had improved. Now with worsening EF as above secondary to cardiac arrest and cardiogenic shock-LVEF now 30-35%. - Lasix 20 mg IV given on 05/31 for some mild edema. Remains euvolemic following this. (15) Rheumatoid arthritis: Plan: Managed with methotrexate 10 mg, etanercept, & chronic prednisone. - Hold home methotrexate and Enbrel while acutely infected - Transitioned to prednisone on 05/28; continue on 10 mg daily pending restarting her other medications to avoid a flare given continued elevated white blood count I suspect this is due to her rheumatoid disease. -> Patient no longer sees a ventilated rib fitter on a regular basis since her provider left. She gets all her refills from Dr. Madden. Prior provider discussed the case with Rd Madden and an outside ventilated rib fitter who recommended only holding until done with antibiotics and feeling better, so likely can resume usual RA medications next Saturday. downgraded patient. (16) Anxiety: Plan: - Continue home lorazepam as needed (17) PAD (peripheral artery disease): Plan: With a history of angioplasty and stenting in bilateral legs with vascular surgery. - Continue Plavix & statin Plan: VTE Prophylaxis - Eliquis on hold due to ICD implant 06/01 Diet - heart healthy Disposition - medically stable for discharge at this time Admission and Anticipated Discharge Date Admission Date: May 23, 2021 Subjective Patient reports no new complaints. Review of Systems Review of Systems: All systems reviewed & are unremarkable except as noted in HPI & below Physical Exam Physical Exam: Constitutional: WD/WN, vitals as above + frail appearing; no acute distress ENMT: external ear and nose normal, oropharynx normal Respiratory: normal respiratory effort; no respiratory distress Auscultation: + crackles (right posterior) Cardiovascular: Rate/Rhythm: + tachycardic and + irregularly irregular Gastrointestinal (Abdomen): Inspection/Auscultation: normal bowel sounds Percussion/Palpation: abdomen soft; abdomen nontender, no guarding and abdomen not rigid Musculoskeletal: no cyanosis or clubbing, extremities motor strength 5/5 Skin: no rashes, warm and dry Neurologic: moves all extremities and awake; not confused Psychiatric: A+Ox3, euthymic affect Results & Data Results & Data ([facility]) Vital Signs (Past 12 Hours) Vital Signs Temp Pulse Resp BP Pulse Ox 06/06/21 15:16 36.4 C L 93 H 16 117/72 96 PG Care Time/CCT Total # of Minutes Spent Total Time Spent with Patient: Total time spent is greater than 50% in coordination of care (as documented) at patient's floor/unit and/or counseling patient: Coding Level of Care Code 71197 Subseq Hosp Care Lvl 1 Diagnoses Pneumonia J18.9 Laterality: right Lung location: upper lobe of lung Pneumonia type: due to unspecified organism Cardiac arrest I46.9 Permanent atrial fibrillation I48.21 Ventricular fibrillation I49.01 Cardiogenic shock R57.0 Respiratory failure with hypoxia J96.91 Elevated troponin R77.8 Sepsis A41.9 Urinary tract infection N39.0 Hematuria presence: without hematuria Urinary tract infection type: site unspecified Duodenitis K29.80 Hyponatremia E87.1 Osteoporosis, unspecified M81.0 Osteoporosis type: age-related Presence of current pathological fracture: without current pathological fracture Hypertension I10 Hypertension type: essential hypertension Cardiomyopathy I42.9 Cardiomyopathy type: unspecified Rheumatoid arthritis M05.79 Rheumatoid arthritis location: multiple sites Rheumatoid factor presence: with rheumatoid factor Anxiety F41.9 PAD (peripheral artery disease) I73.9 (1) Urinary tract infection Hematuria presence: without hematuria Urinary tract infection type: site unspecified Qualified Code(s): N39.0 - Urinary tract infection, site not specified (2) Rheumatoid arthritis Rheumatoid arthritis location: multiple sites Rheumatoid factor presence: with rheumatoid factor Qualified Code(s): M05.79 - Rheumatoid arthritis with rheumatoid factor of multiple sites without organ or systems involvement (3) Osteoporosis, unspecified Osteoporosis type: age-related Presence of current pathological fracture: without current pathological fracture Qualified Code(s): M81.0 - Age-related osteoporosis without current pathological fracture (4) Hypertension Hypertension type: essential hypertension Qualified Code(s): I10 - Essential (primary) hypertension (5) Cardiomyopathy Cardiomyopathy type: unspecified Qualified Code(s): I42.9 - Cardiomyopathy, unspecified (6) Pneumonia Laterality: right Lung location: upper lobe of lung Pneumonia type: due to unspecified organism Qualified Code(s): J18.9 - Pneumonia, unspecified organism
[2021-06-07 07:29] LABS: Hematocrit (blood only) 35.1 % (37-47); Hemoglobin 11.5 g/dL (12.0-16.0); Mean Corpuscular Hemoglobin 32.7 pg (25-34); Mean Corpuscular Hgb Conc 32.8 g/dL (32-36); Mean Corpuscular Volume 99.7 fL (80-100); Mean Platelet Volume 9.4 fL (7.4-10.4); Platelet Count 219 K/uL (130-400); RDW Coefficient of Variation 15.4 % (11.5-14.5); RDW Standard Deviation 55.3 fL (36.4-46.3); Red Blood Count 3.52 M/uL (4.2-5.4); White Blood Count 15.61 K/uL (4.8-10.8)
[2021-06-07 07:55] LABS: BUN Creatinine Ratio 25.3 (10-20); Calcium 8.3 mg/dl (8.5-10.1); Creatinine Clr Calc Pharmacy 49.5 ml/min; Est GFR (African American) 87.3 ml/min; Est GFR (Non-African American) 75.3 ml/min; Potassium 3.8 mmol/L (3.5-5.1)
[2021-06-07] MEDS: PANTOprazole 40 MG TAB PO SCH ×2 (09:06→21:59)
[2021-06-07] MEDS: METOPROLOL SUCC 50MG EXT REL TAB PO SCH (09:06)
[2021-06-07] MEDS: lisinopril 5 MG TAB PO SCH (09:07)
[2021-06-07] MEDS: predniSONE 10 MG TABLET PO SCH (09:07)
[2021-06-07] MEDS: ROSUVASTATIN CALCIUM 5 MG TAB PO SCH (09:08)
[2021-06-07] MEDS: CLOPIDOGREL BISULFATE 75 MG TAB PO SCH (09:08)
[2021-06-07] MEDS: LIDOCAINE 5% 1 PATCH TD SCH (09:09)
[2021-06-07] MEDS: FOLIC ACID 1 MG TAB PO SCH (09:09)
[2021-06-07] MEDS: AMIODARONE 200 MG TAB PO SCH ×2 (09:09→18:16)
[2021-06-07] MEDS: APIXABAN 5 MG TABLET PO SCH ×2 (10:08→22:35)
--- NOTE | 2021-06-07 20:23 | Hospitalist Progress Note ---
Date of Service June 07, 2021 Assessment & Plan (1) Pneumonia: Plan: CT chest on 05/26 right upper lobe consolidative airspace opacity with associated air bronchograms. Covid-19 and influenza A/B both negative. - On cefepime/doxycycline per pulmonology. Feel that with her immune suppression, she is at risk for more extended bacterial illnesses. - Repeated CT chest on 05/28 as she had faster respiratory rate and continue hypoxemia. No change in appearance. -> Stable today. Finished antibiotics on 06/01 for a 10-day course. -> Procalcitonin negative on the ->placement was denied. -?Had discussing with gardenia Welch, as insurance denied placement and likelihood of reversing a peer to peer is low. Offered option of family appeal vs home health. As the patient willl have sufficient family support, they will go with the home health option currently. (2) Cardiac arrest: Plan: Had V. fib arrest on the evening of 05/25 CODE BLUE was called and CPR was started. Received 1 shock and 1 mg of epi and achieved ROSC. Was intubated overnight on 05/25 and extubated on the morning of 05/26. - Per Dr. Daley, appears to be idiopathic, primary Vfib. -> ICD 06/[address] Sams. No complications noted. refrain from lifting her left arm above the shoulder behind the neck for 6 weeks (3) Permanent atrial fibrillation: Plan: Rapid afib persisted for the first 2 days of admission - likely secondary to sepsis and hypovolemia. Patient managed by Dr. Sams (yearly visits). Now on amiodarone PO and rates are improved in the low 100s. - Appreciate cardiology consultation - Eliquis restarted on June 04 - Restarted Toprol-XL -> Increased to 75 mg on 05/28; now 100 mg. - Continue amiodarone at [address] Sams. (4) Ventricular fibrillation: Plan: As above (5) Cardiogenic shock: Plan: Now weaned off vasopressors. - Restarted Toprol-XL on 05/27. Increased to 100 mg on 05/29. - Restart lisinopril 5mg PO daily (06/03) (6) Respiratory failure with hypoxia: Plan: Secondary to cardiogenic shock and cardiac arrest, now extubated. (7) Elevated troponin: Plan: Troponin peaked at 1.5 after cardiac arrest. This is secondary to cardiac contusion and also secondary to hypoperfusion. No urgent need for cardiac catheterization. - Outpatient f/u (8) Sepsis: Plan: Presented with fevers, leukocytosis, tachycardia, and source of infection being both pneumonia and UTI. SEPSIS, POA. (9) Urinary tract infection: Plan: Abnormal UA although without any urinary symptoms. Urine culture with Klebsiella pansens. - Abx as for PNA (10) Duodenitis: Plan: Noted on CT abdomen/pelvis from admission. She initially had nausea but no vomiting, no melena or hematemesis. Could certainly have peptic ulcer disease given long history of chronic prednisone. - Continue Protonix 40 mg PO BID - Monitor for any evidence of GI bleeding - No need for GI consultation or endoscopy at this point (11) Hyponatremia: Plan: Likely secondary to hypovolemia initially, possibly some SIADH from PNA. Remained stable (12) Osteoporosis, unspecified: Plan: - Hold home calcium carbonate-vitamin D (13) Hypertension: Plan: BP today is 115/90. - Holding home diltiazem -Metoprolol and lisinopril as above (14) Cardiomyopathy: Plan: With a history of HFrEF that had improved. Now with worsening EF as above secondary to cardiac arrest and cardiogenic shock-LVEF now 30-35%. - Lasix 20 mg IV given on 05/31 for some mild edema. Remains euvolemic following this. (15) Rheumatoid arthritis: Plan: Managed with methotrexate 10 mg, etanercept, & chronic prednisone. - Hold home methotrexate and Enbrel while acutely infected - Transitioned to prednisone on 05/28; continue on 10 mg daily pending restarting her other medications to avoid a flare given continued elevated white blood count I suspect this is due to her rheumatoid disease. -> Patient no longer sees a wildlife refuge specialist on a regular basis since her provider left. She gets all her refills from Dr. Madden. Prior provider discussed the case with Rd Madden and an outside wildlife refuge specialist who recommended only holding until done with antibiotics and feeling better, so likely can resume usual RA medications next Saturday. downgraded patient. (16) Anxiety: Plan: - Continue home lorazepam as needed (17) PAD (peripheral artery disease): Plan: With a history of angioplasty and stenting in bilateral legs with vascular surgery. - Continue Plavix & statin Plan: VTE Prophylaxis - Eliquis on hold due to ICD implant 06/01 Diet - heart healthy Disposition - medically stable for discharge at this time Admission and Anticipated Discharge Date Admission Date: May 23, 2021 Subjective Patient reports no new complaints. Review of Systems Review of Systems: All systems reviewed & are unremarkable except as noted in HPI & below Physical Exam Physical Exam: Constitutional: WD/WN, vitals as above + frail appearing; no acute distress ENMT: external ear and nose normal, oropharynx normal Respiratory: normal respiratory effort; no respiratory distress Auscultation: + crackles (right posterior) Cardiovascular: Rate/Rhythm: rate controlled and + irregularly irregular Gastrointestinal (Abdomen): Inspection/Auscultation: normal bowel sounds Percussion/Palpation: abdomen soft; abdomen nontender, no guarding and abdomen not rigid Musculoskeletal: no cyanosis or clubbing, extremities motor strength 5/5 Skin: no rashes, warm and dry Neurologic: moves all extremities and awake; not confused Psychiatric: A+Ox3, euthymic affect Results & Data Results & Data ([facility]) Vital Signs (Past 12 Hours) Vital Signs Temp Pulse Pulse Resp BP Pulse Ox 06/07/21 18:16 72 136/82 06/07/21 14:33 36.6 C 72 16 114/75 95 PG Care Time/CCT Total # of Minutes Spent Total Time Spent with Patient: Total time spent is greater than 50% in coordination of care (as documented) at patient's floor/unit and/or counseling patient: Coding Level of Care Code 07352 Subseq Hosp Care Lvl 2 Diagnoses Pneumonia J18.9 Laterality: right Lung location: upper lobe of lung Pneumonia type: due to unspecified organism Cardiac arrest I46.9 Permanent atrial fibrillation I48.21 Ventricular fibrillation I49.01 Cardiogenic shock R57.0 Respiratory failure with hypoxia J96.91 Elevated troponin R77.8 Sepsis A41.9 Urinary tract infection N39.0 Hematuria presence: without hematuria Urinary tract infection type: site unspecified Duodenitis K29.80 Hyponatremia E87.1 Osteoporosis, unspecified M81.0 Osteoporosis type: age-related Presence of current pathological fracture: without current pathological fracture Hypertension I10 Hypertension type: essential hypertension Cardiomyopathy I42.9 Cardiomyopathy type: unspecified Rheumatoid arthritis M05.79 Rheumatoid arthritis location: multiple sites Rheumatoid factor presence: with rheumatoid factor Anxiety F41.9 PAD (peripheral artery disease) I73.9 (1) Urinary tract infection Hematuria presence: without hematuria Urinary tract infection type: site unspecified Qualified Code(s): N39.0 - Urinary tract infection, site not specified (2) Rheumatoid arthritis Rheumatoid arthritis location: multiple sites Rheumatoid factor presence: with rheumatoid factor Qualified Code(s): M05.79 - Rheumatoid arthritis with rheumatoid factor of multiple sites without organ or systems involvement (3) Osteoporosis, unspecified Osteoporosis type: age-related Presence of current pathological fracture: without current pathological fracture Qualified Code(s): M81.0 - Age-related osteoporosis without current pathological fracture (4) Hypertension Hypertension type: essential hypertension Qualified Code(s): I10 - Essential (primary) hypertension (5) Cardiomyopathy Cardiomyopathy type: unspecified Qualified Code(s): I42.9 - Cardiomyopathy, unspecified (6) Pneumonia Laterality: right Lung location: upper lobe of lung Pneumonia type: due to unspecified organism Qualified Code(s): J18.9 - Pneumonia, unspecified organism
[2021-06-08] MEDS: lisinopril 5 MG TAB PO SCH (09:06)
[2021-06-08] MEDS: AMIODARONE 200 MG TAB PO SCH (09:33)
[2021-06-08] MEDS: FOLIC ACID 1 MG TAB PO SCH (09:33)
[2021-06-08] MEDS: ROSUVASTATIN CALCIUM 5 MG TAB PO SCH (09:33)
[2021-06-08] MEDS: PANTOprazole 40 MG TAB PO SCH (09:33)
[2021-06-08] MEDS: predniSONE 10 MG TABLET PO SCH (09:33)
[2021-06-08] MEDS: METOPROLOL SUCC 50MG EXT REL TAB PO SCH (09:33)
[2021-06-08] MEDS: LIDOCAINE 5% 1 PATCH TD SCH (09:34)
[2021-06-08] MEDS: APIXABAN 5 MG TABLET PO SCH (10:07)
[2021-06-08] MEDS: CLOPIDOGREL BISULFATE 75 MG TAB PO SCH (10:07)
--- NOTE | 2021-06-08 15:14 | Discharge Summary ---
Date of Service June 08, 2021 Admission HPI Per Admitting Provider Nikki is an 80F with PMHx of permanent atrial fibrillation (on Eliquis, diltiazem, and metoprolol), systolic CHF w/ mildly reduced function, rheumatoid arthritis on chronic steroids and MTX, and osteoporosis. She presented to the emergency room today with a chief complaint of chills and progressive weakness /fatigue since Saturday. Pt denies any recent prior illness or inciting exposure. Temperatures were mostly around 99F, though she recorded one-time spike to 102 F yesterday. ROS + reduced appetite, intermittent mild dry cough, and mild dyspnea on exertion, which he attributes to overall fatigue. She denies hemoptysis, wheezing, pleuritic chest pain, dysuria, or recent weight loss. In the ED, CXR revealed right upper lobe consolidation concerning for pneumonia, and bacteriuria (negative nitrites, negative leukocyte esterase, positive urine WBCs, hematuria). She also received IV Azithromycin 500 mg x1 and IV Rocephin 2 g x1[address] Pt. sees Dr[address] Sams yearly for management of her atrial fibrillation and HFrEF. Principal Diagnosis Pneumonia Afib with RVR Vfib with Cardiac Arrest Discharge Exam General: A&Ox3. NAD. Cooperative. HEENT: Atraumatic, normocephalic. Pulm: CTAB A&P. -wheezes, -rales, -rhonchi. Symmetrical chest rise. No increase in work of breathing. No respiratory distress. Cardiac: iRiR, -mrg. Radial pulses intact and symmetrical. Abdominal: Nontender, nondistended, soft. BS present. Discharge Data Allergies Allergy/AdvReac Type Severity Reaction Status Date / Time morphine AdvReac Intermediate NAUSEA Verified 05/23/21 12:27 Consultations 05/23/21 17:15 ED Decision to Admit Stat 05/25/21 22:22 Consult Disaster Recovery Manager Routine 05/26/21 08:09 Consult Cardiology Routine Procedures Performed Operation Date: 06/01/21 08:00 Actual Procedures p ICD Insertion Single or Dual - Timothy Sams MD Ordered Studies 05/23/21 14:00 CT abd pelvis IV con only Stat 05/25/21 21:55 CT head/brain wo con Stat 05/26/21 08:32 CT chest diagnostic wo con Routine 05/28/21 09:25 CT chest diagnostic wo con Urgent 06/01/21 07:04 CL Cath Imgs for PACS use only Routine Hospital Course (1) Pneumonia: Nishi is a 80-year-old female with a past medical history of RA, A. fib on apixaban, chronic steroid use, peripheral artery disease who presented with pneumonia with rapid A. fib likely secondary to sepsis and hypovolemia, and who experienced V. fib arrest during admission after which a CODE BLUE was called, ROSC was obtained, and an ICD was placed 06/01. Patient was intubated 05/25 and extubated 05/26 during admission. Placement was denied by insurance, patient was discharged home with home health and family care. To do as outpatient: 1. Follow-up with cardiology, follow-up with PCP 2. Complete short course of increased prednisone dosing until Sunday 06/11, after which resume normal rheumatoid medications 3. Medication follow-up. Patient started on amiodarone 400 mg p.o. twice daily 4. Diltiazem held during admission, patient normotensive on lisinopril and metoprolol as below. May consider resuming if hypertensive as recheck. Pneumonia CT chest on 05/26 right upper lobe consolidative airspace opacity with associated air bronchograms. Covid-19 and influenza A/B both negative. - On cefepime/doxycycline per pulmonology. Feel that with her immune suppression, she is at risk for more extended bacterial illnesses. - Repeated CT chest on 05/28 as she had faster respiratory rate and continue hypoxemia. No change in appearance. Completed 10-day course of antibiotics 06/01, pro-Derek negative 05/29 Breathing room air at discharge (2) Cardiac arrest: Had V. fib arrest on the evening of 05/25 CODE BLUE was called and CPR was started. Received 1 shock and 1 mg of epi and achieved ROSC. Was intubated overnight on 05/25 and extubated on the morning of 05/26. - Per Dr. Daley, appears to be idiopathic, primary Vfib. -> ICD 06/[address] Sams. No complications noted. refrain from lifting her left arm above the shoulder behind the neck for 6 weeks (3) Permanent atrial fibrillation: Rapid afib persisted for the first 2 days of admission - likely secondary to sepsis and hypovolemia. Patient managed by Dr. Sams (yearly visits). Now on amiodarone PO and rates are improved in the low 100s. - Appreciate cardiology consultation - Rubin restarted on June 04 - Restarted Toprol-XL -> Increased to 75 mg on 05/28; now 100 mg. - Continue amiodarone at [address] PO BID per Dr. Sams. (4) Ventricular fibrillation: As above (5) Cardiogenic shock: Now weaned off vasopressors. - Restarted Toprol-XL on 05/27. Increased to 100 mg on 05/29. - Restart lisinopril 5mg PO daily (06/03) (6) Respiratory failure with hypoxia: Secondary to cardiogenic shock and cardiac arrest, now extubated. (7) Elevated troponin: Troponin peaked at 1.5 after cardiac arrest. This is secondary to cardiac contusion and also secondary to hypoperfusion. No urgent need for cardiac catheterization per cardiology. - Outpatient f/u (8) Sepsis: Presented with fevers, leukocytosis, tachycardia, and source of infection being both pneumonia and UTI. SEPSIS, POA. (9) Urinary tract infection: Abnormal UA although without any urinary symptoms. Urine culture with Klebsiella pansens. - Abx as for PNA (10) Duodenitis: Noted on CT abdomen/pelvis from admission. She initially had nausea but no vomiting, no melena or hematemesis. Could certainly have peptic ulcer disease given long history of chronic prednisone. - Continue Protonix 40 mg PO BID - Monitor for any evidence of GI bleeding - No need for GI consultation or endoscopy at this point (11) Hyponatremia: Likely secondary to hypovolemia initially, possibly some SIADH from PNA. Remained stable, improved (12) Osteoporosis, unspecified: - Hold home calcium carbonate-vitamin D (13) Hypertension: -Held home diltiazem, normotensive with metoprolol and lisinopril during admission. Can consider resuming diltiazem on outpatient if hypotensive. -Metoprolol and lisinopril as above (14) Cardiomyopathy: With a history of HFrEF that had improved. Now with worsening EF as above secondary to cardiac arrest and cardiogenic shock-LVEF now 30-35%. - Lasix 20 mg IV given on 05/31 for some mild edema. Remains euvolemic following this. (15) Rheumatoid arthritis: Managed with methotrexate 10 mg, etanercept, & chronic prednisone. - Hold home methotrexate and Enbrel while acutely infected - Transitioned to prednisone on 05/28; continue on 10 mg daily pending restarting her other medications to avoid a flare given continued elevated white blood count I suspect this is due to her rheumatoid disease. -> Patient no longer sees a precision millwright on a regular basis since her provider left. She gets all her refills from Dr. Madden. Prior provider discussed the case with Rd Madden and an outside precision millwright who recommended only holding until done with antibiotics and feeling better, so likely can resume usual RA medications after completing prednisone 06/11 (16) Anxiety: - Continue home lorazepam as needed (17) PAD (peripheral artery disease): With a history of angioplasty and stenting in bilateral legs with vascular surgery. - Continue Plavix & statin Total Time Total Time Spent Total Time Spent (In Minutes): Time spend day of discharge 30 minutes including direct patient care, documentation, review of labs and images, and coordination of care. Discharge Plan Discharge Items Patient Disposition: Home - Home Health Services Reason For Visit: CONTINUATION OF CARE Discharge Diagnosis: Pneumonia Cardiac Arrest w/ VFib Atrial Fibrillation Activity: As commented below Activity Comment: refrain from lifting left arm above shoulder behind the neck for 6 weeks Non-emergency contact: Primary Care Provider and Bread Supervisor Call non-emergency contact if: you have any medication questions, your symptoms worsen, your pain is worsening and your pain is unusual for you Follow-up/Referrals: Rd Madden MD [Primary Care Provider] - Alexander Daley MD [Physician] - Diet: Heart Healthy Addtl Attending Provider Instructions: You were seen in the hospital for right upper lobe pneumonia. During your hospital admission you experienced a rapid heart rate, called Renetta falcon with rapid ventricular response. You also experienced ventricular fibrillation with cardiac arrest requiring CPR. You have had medication changes as noted below, and have had and internal cardiac defibrillator placed. You are being discharged home with home health services and family support. You have temporarily been prescribed an increased dose of prednisone. Please take prednisone 10 mg by mouth once daily until this Saturday. Do not take your Enbrel, leucovorin, or methotrexate during this time. If you continue to feel well you may resume your previous home dosing of prednisone, leucovorin, methotrexate, and Enbrel on 06/12/2021. You have been started on a medication for atrial fibrillation, amiodarone. Please take amiodarone 400 mg by mouth twice daily. Your buzzle buffer will follow up with you regarding this medication at your appointment below. A follow-up appointment is being scheduled for you with cardiology. You should be seen within 1 month. If you do not receive a call regarding this appointment, please contact their office at the number above. A follow-up appointment is being scheduled for you with your primary care provider Dr. Madden. You should be seen within 1 week. If you do not receive a call to confirm this appointment, please call his office at the number above. You have had an internal cardiac defibrillator placed by cardiology. refrain from lifting left arm above shoulder behind the neck for 6 weeks. You may shower after you have had a postop incision check by either cardiology or your primary care provider. If you develop any new or worsening symptoms including fever, chills, sweats, chest pain, chest pressure, difficulty breathing, uncontrolled nausea/vomiting, rash, wheezing, passing out or nearly passing out, bleeding, black/bloody bowel movements, or other new or concerning symptoms please call your primary care physician, or call 911 for re-evaluation in the emergency department if you are very concerned. Pending Studies at Discharge: No Stand-Alone Forms: My [facility] Liquid [employer], Smoking Cessation Medications and DC Order Prescriptions: New amiodarone 200 mg Tablet 400 mg PO BIDM 30 Days Qty: 120 RF: 0 prednisone 10 mg tablet 10 mg PO DAILY 3 Days Qty: 3 RF: 0 Continued Enbrel SureClick 50 mg/mL (1 mL) pen injector 50 mg subcut WK Qty: 4 RF: 3 Eliquis 5 mg tablet 5 mg PO BID Qty: 60 RF: 11 metoprolol succinate [Toprol XL] 100 mg tablet extended release 24 hr 100 mg PO QAM Qty: 90 RF: 3 leucovorin calcium 5 mg tablet 10 mg PO WK Qty: 28 RF: 3 lorazepam 0.5 mg tablet 0.5 mg PO HS PRN (Reason: anxiety) Qty: 30 RF: 0 potassium chloride [K-Tab] 20 mEq tablet extended release 20 meq PO QAM RF: 0 clopidogrel [Plavix] 75 mg tablet 75 mg PO QAM RF: 0 methotrexate sodium 2.5 mg tablet 10 mg PO WK RF: 0 diltiazem HCl 120 mg capsule,extended release 24hr 120 mg PO QAM RF: 0 lisinopril 2.5 mg tablet 5 mg PO QAM RF: 0 rosuvastatin 5 mg tablet 5 mg PO QAM RF: 0 folic acid 1 mg tablet 1 mg PO DAILY RF: 0 Discontinued prednisone 1 mg tablet 3 mg PO .COMPLEX Qty: 300 RF: 3 Discharge Orders: Discharge Order (Routine); Ordered 06/08/21 Ordered By: Rd Roman Admission Data Admit Date/Time: 05/23/21 20:25 Attending Provider: Rd Roman Admit Provider: Tameka Guillen Primary Care Provider: Rd Madden Other Providers: [facility] ; Yordy Godoy ; Nahid Giraldo ; Da Torres ; Fredrick Koroma ; Be Escalante ; Alexander Daley ; Robert Parmar Jr ; Drew Basurto ; Megan Graff ; Jannette Dasilva ; Parveen Cahmbers ; Timothy Sams ; Jj Anders ; Isabell Downs ; Kennedi Rivera ; Adebayo Trujillo ; Harjeet Castaneda ; Orion Live Coding Level of Care Code D/C DAY MANAGEMENT >30 MINS Diagnoses Pneumonia J18.9 Laterality: right Lung location: upper lobe of lung Pneumonia type: due to unspecified organism Cardiac arrest I46.9 Permanent atrial fibrillation I48.21 Ventricular fibrillation I49.01 Cardiogenic shock R57.0 Respiratory failure with hypoxia J96.91 Elevated troponin R77.8 Sepsis A41.9 Urinary tract infection N39.0 Hematuria presence: without hematuria Urinary tract infection type: site unspecified Duodenitis K29.80 Hyponatremia E87.1 Osteoporosis, unspecified M81.0 Osteoporosis type: age-related Presence of current pathological fracture: without current pathological fracture Hypertension I10 Hypertension type: essential hypertension Cardiomyopathy I42.9 Cardiomyopathy type: unspecified Rheumatoid arthritis M05.79 Rheumatoid arthritis location: multiple sites Rheumatoid factor presence: with rheumatoid factor Anxiety F41.9 PAD (peripheral artery disease) I73.9
== END 2021-06-08 16:21 | disposition home health service (06) | DRG 853 ==
LOC: ED 10:20 → EDINP 20:25 → SUATTDRO 20:25 → EDINP 05-24 00:28 → 2N 05-24 07:57 → 1E 05-25 21:47 → 3N 06-03 20:37
PROC: EPB.ICD (2021-06-01 08:00)

== ENCOUNTER 2022-03-19 16:54 | Inpatient (IN) ==
--- NOTE | 2022-03-19 18:22 | XRay Report ---
XR chest 1V portable HISTORY: 81 years-old Female weakness acute weakness COMPARISON: Chest radiographs 06/02/2021 TECHNIQUE: AP view of the chest FINDINGS: Cardiac silhouette is enlarged. Left subclavian pacer/AICD. Postoperative changes of the right lung a pex. No pneumothorax. Pulmonary vascular congestion with trace pleural effusions. Mild subsegmental l eft basilar densities favoring atelectasis. Degenerative changes of the shoulders and spine. Sigmoida l thoracolumbar scoliosis. IMPRESSION: 1. Cardiomegaly with pulmonary vascular congestion. 2. Trace pleural effusions. ACT 112: Negative or not required by law. The above report was generated using voice recognition software. It may contain grammatical, syntax o r spelling errors. Electronically signed by: Gabino Rosales M.D. 03/19/2022 6:21 PM
[2022-03-19 19:04] LABS: Basophils # (auto) 0.06 K/uL (0-0.2); Basophils % (auto) 0.5 %; Eosinophils # (auto) 0.02 K/uL (0-0.50); Eosinophils % (auto) 0.2 %; Hemoglobin 10.4 g/dl (12.0-16.0); Immature Granulocytes # (auto) 0.09 K/uL (0.00-0.02); Immature Granulocytes % (auto) 0.8 %; Lymphocytes # (auto) 1.32 K/uL (1.2-3.4); Mean Corpuscular Hemoglobin 26.6 pg (25.0-34.0); Mean Corpuscular Hgb Conc 30.6 g/dL (32.0-36.0); Mean Platelet Volume 9.2 fL (9.4-12.3); Monocytes # (auto) 0.89 K/uL (0.24-0.82); Monocytes % (auto) 7.4 %; Neutrophils # (auto) 9.61 K/uL (1.4-6.5); Neutrophils % (auto) 80.1 %; Nucleated RBC # (auto) 0.02 K/uL (0-0); Nucleated RBC % (auto) 0.2 %; Platelet Count 309 K/uL (130-400); RDW Coefficient of Variation 18.8 % (11.5-14.5); RDW Standard Deviation 58.6 fL (36.4-46.3); Red Blood Count 3.91 M/uL (3.93-5.22); White Blood Count 11.99 K/ul (4.8-10.8)
[2022-03-19 19:39] LABS: Troponin I High Sensitivity 36.4 pg/ml (0-14)
[2022-03-19 19:44] LABS: Albumin Globulin Ratio 1.1 (0.9-2); Albumin Level 3.5 gm/dl (3.4-5.0); BUN Creatinine Ratio 20.4 (10-20); Bilirubin,Total 1.2 mg/dl (0.2-1.0); Creatinine Clr Calc Pharmacy 35.6 ml/min; Est GFR (African American) 62.7 ml/min; Est GFR (Non-African American) 54.1 ml/min; Globulin 3.2 gm/dl (2.5-4.0); Magnesium 1.8 mg/dl (1.7-2.4); Potassium 3.5 mmol/L (3.5-5.1); Total Protein 6.7 gm/dl (6.0-8.3)
[2022-03-19] MEDS ORDERED: SODIUM CHLORIDE 0.9% 1000ML 500 ML IV ONE (20:15)
[2022-03-19 20:39] LABS: Appearance Urine Cloudy (Clear); Bacteria Urine Automated 4+ (Negative); Bilirubin Urine Negative (Negative); Blood Urine 2+ (Negative); Color Urine Yellow; Epithelial Cell Urine Auto 0-5 /lpf (0-5); Glucose Urine UA Negative (Negative); Ketones Urine 1+ (Negative); Leukocyte Esterase Urine 2+ (Negative); Nitrite Urine Negative (Negative); Protein Urine 2+ (Negative); RBC Urine Automated >30 /hpf (0-4); Specific Gravity Urine 1.016 (1.000-1.030); Urobilinogen Urine Negative (Negative); WBC Urine Automated >30 /hpf (0-5); pH Urine 6.5 (4.5-7.5)
--- NOTE | 2022-03-19 20:39 | Emergency Department Note ---
Impression & Plan Acute UTI, Weakness, Elevated troponin ED Provider Note CHIEF COMPLAINT: Generalized weakness HISTORY OF PRESENT ILLNESS: This is 81-year-old female patient presents to the emergency department with complaints of generalized weakness. The patient came in by ambulance. She states her son tested positive for COVID 2 days ago. She does not believe she has had a significant exposure to him. She denies any recent coughing, fevers, abdominal pain or urinary symptoms. She states she has not really been able to get out of bed much today. She has not been eating or drinking much today. Patient does have a history of atrial fibrillation, COPD and peripheral vascular disease. REVIEW OF SYSTEMS: A review of systems was performed with positives and pertinent negatives listed in the history of present illness. 10 systems were reviewed and are otherwise negative. ALLERGIES: see below MEDICATIONS: see below PMH: see below SOCIAL HISTORY: see below DDx: Infection, dehydration, metabolic abnormality, hypo/hyperglycemia, electrolyte disturbance, anemia, hypoxia, cardiac sources, intracerebral event, toxicologic, neurologic, as well as other pathologies. PHYSICAL EXAM: Vital signs reviewed. General: Elderly, 81-year-old female, no significant distress. Thin and frail. HEENT: No scleral icterus, PERRLA, neck supple. Atraumatic. Cardiovascular: Tachycardic and irregular. Pulmonary: Clear to auscultation bilaterally, normal work of breathing. Abdomen: Soft, nontender, nondistended, positive bowel sounds. Musculoskeletal: Atraumatic, no peripheral edema. Neurologic: Patient awake alert and oriented x 3, speech is clear Skin: Warm, dry, no rash EMERGENCY DEPARTMENT COURSE/MDM: This patient was evaluated and appeared to be in no significant distress. IV access was obtained and laboratory work was drawn. The patient was noted to be slightly tachycardic and atrial fibrillation. Laboratory work reveals a mild leukocytosis and a slightly elevated troponin. EKG reveals no evidence of acute ischemic change. COVID testing was performed and is negative. Chest x-ray reveals cardiomegaly with pacemaker in place. Patient was unable to provide a urine specimen after several attempts. She was given a 500 mL bolus of normal saline solution and a straight cath was performed. Case was discussed with the hospitalist service due to elevated troponin to evaluate patient for further management. UA was pending at that time, however later is noted to be indicative of infection. Antibiotic arrangements deferred to their discretion. Patient and son remain a roberts of plan and agreed. MONITORING: An order for cardiac monitoring was placed and the patient is noted to be in a atrial fibrillation at 97 beats per minute. RADIOLOGY: See below EKG: Atrial fibrillation with RVR at [address] and T wave abnormalities. Prolonged QT interval of 522. No PVC, no PAC. DISPOSITION: Admission Past Med/Surg History Medical History Atrial fibrillation Atrial fibrillation with RVR Brain aneurysm under surveillance by PCP (stable x years) Bronchitis (~03/23/19) Chronic steroid use GERD (gastroesophageal reflux disease) Hyperlipidemia Hypertension Kidney stones Osteoporosis, unspecified PAD (peripheral artery disease) Pneumonia Rheumatoid arthritis Systolic CHF Surgical History H/O foot surgery History of implantable cardiac defibrillator (ICD) History of lithotripsy History of thoracotomy FOR COLLAPSED LUNG - HAD WEDGE RESECTION LOWER RIGHT Hx of cataract extraction Family History Mother Arthritis Father Congestive heart failure (CHF) Aunt Breast cancer Sister Stroke Other Thoracic aortic aneurysm Denies family history of Ovarian cancer Prostate cancer Diabetes Myocardial infarction Lung cancer Colorectal cancer Social History Smoking Status: Unknown if ever smoked Age Started Using Tobacco: 16; Age Quit Using Tobacco: 45; packs per day: 0.5; Second Hand Exposure: No; Hx Alcohol Use: No Hx Substance Use: No Preferred Language: Estonian Communication Ability: Effective Visual Impairment: Limited Hearing Ability: Normal Mid Level Clinician Required: No Beliefs That Will Affect Care: None marital status: / Current Living Situation: Alone current occupational status: retired How many Children do You have: 5 Feels Safe at Home: Yes Childhood Exposure to Second-Hand Smoke: Yes (dad did off and on ) caffeine: Yes (coffee) Dental Care, Regularly: No Physical Activity Frequency: Daily Physical Activity Frequency Comment: walks daily Seatbelt Use: always Sunscreen Use: Yes Assistive Devices: Walker Allergies Allergies Allergy/AdvReac Type Severity Reaction Status Date / Time morphine AdvReac Intermediate NAUSEA Verified 03/19/22 20:31 Home Meds Home Medications Medication Instructions Recorded Confirmed clopidogrel 75 mg tablet (Plavix) 75 mg PO QAM 05/23/21 03/19/22 folic acid 1 mg tablet 1 mg PO DAILY 05/24/21 03/19/22 Previous Rx's Medication Instructions Recorded amiodarone 200 mg tablet 200 mg PO DAILY #90 tabs 08/01/21 lisinopril 10 mg tablet 10 mg PO DAILY #90 tabs 08/01/21 rosuvastatin 5 mg tablet 5 mg PO QAM #90 tabs 09/04/21 metoprolol succinate 100 mg 150 mg PO DAILY #120 tabs 10/18/21 tablet,extended release 24 hr spironolactone 25 mg tablet 25 mg PO DAILY #90 tabs 12/07/21 apixaban 2.5 mg tablet 2.5 mg PO BID #180 tabs 01/19/22 prednisone 1 mg tablet See Rx Instructions .Route 01/26/22 .COMPLEX #300 tabs methotrexate sodium 2.5 mg tablet See Rx Instructions .Route 02/19/22 .COMPLEX #45 tabs lorazepam 0.5 mg tablet 0.5 mg PO HS PRN anxiety #30 tabs 03/12/22 Results & Data (ED) Vital Signs Vital Signs - 24 hr 03/19/22 16:58 03/19/22 18:26 03/19/22 18:35 Temperature 37.4 C Temperature Source Oral Pulse Rate 106 H 97 H Pulse Rate [Apical] 98 H Pulse Rhythm Irregular Pulse Rhythm [Apical] Irregular Respiratory Rate 18 24 24 Respiratory Effort / Characteristics Non-Labored Spontaneous Non-Labored Spontaneous Respiratory Depth Normal Normal Respiratory Pattern Regular Blood Pressure 155/98 H Blood Pressure [Right Arm] 155/98 H Blood Pressure Mean 117 Blood Pressure Mean [Right Arm] 117 Blood Pressure Position [Right Arm] Pulse Oximetry 93 93 95 Oxygen Delivery Method Room Air Room Air Room Air Sepsis Recent Fever Within 48 Hours No Sepsis New/Unexplained Change in Mental Status No Sepsis Action Taken by Nursing No Action Required 03/19/22 17:54 03/19/22 20:30 Temperature Temperature Source Pulse Rate Pulse Rate [Apical] 96 H Pulse Rhythm Pulse Rhythm [Apical] Respiratory Rate 22 Respiratory Effort / Characteristics Respiratory Depth Respiratory Pattern Blood Pressure Blood Pressure [Right Arm] 141/80 H Blood Pressure Mean Blood Pressure Mean [Right Arm] 100 Blood Pressure Position [Right Arm] Sitting Pulse Oximetry 95 Oxygen Delivery Method Room Air Sepsis Recent Fever Within 48 Hours Sepsis New/Unexplained Change in Mental Status Sepsis Action Taken by [facility] Medications Current Medication List: was personally reviewed by me Laboratory Data Attestation: I reviewed the patient's lab results. Result diagrams: 03/19/22 18:39 03/19/22 18:39 Lab Results 03/19/22 03/19/22 03/19/22 Range/Units 18:34 18:39 18:39 WBC 11.99 H (4.8-10.8) K/ul RBC 3.91 L (3.93-5.22) M/uL Hgb 10.4 L (12.0-16.0) g/dl Hct 34.0 L (34.1-44.9) % MCV 87.0 (80.0-100.0) fL MCH 26.6 (25.0-34.0) pg MCHC 30.6 L (32.0-36.0) g/dL RDW Std Deviation 58.6 H (36.4-46.3) fL RDW Coeff of Libra 18.8 H (11.5-14.5) % Plt Count 309 (130-400) K/uL MPV 9.2 L (9.4-12.3) fL Immature Gran % (Auto) 0.8 % Neut % (Auto) 80.1 % Lymph % (Auto) 11.0 % [place] % (Auto) 7.4 % Eos % (Auto) 0.2 % Baso % (Auto) 0.5 % Neut # (Auto) 9.61 H (1.4-6.5) K/uL Lymph # (Auto) 1.32 (1.2-3.4) K/uL [place] # (Auto) 0.89 H (0.24-0.82) K/uL Eos # (Auto) 0.02 (0-0.50) K/uL Baso # (Auto) 0.06 (0-0.2) K/uL Immature Gran # (Auto) 0.09 H (0.00-0.02) K/uL Absolute Nucleated RBC 0.02 H (0-0) K/uL Nucleated RBC % (auto) 0.2 % Sodium 143 (136-145) mmol/L Potassium 3.5 (3.5-5.1) mmol/L Chloride 106 (98-107) mmol/L Carbon Dioxide 25 (21-32) mmol/L Anion Gap 12 H (3-11) BUN 20 (6-23) mg/dl Creatinine 0.98 (0.6-1.2) mg/dl Est Cr Clr Drug Dosing 35.6 ml/min Est GFR ( Amer) 62.7 ml/min Est GFR (Non-Af Amer) 54.1 ml/min BUN/Creatinine Ratio 20.4 H (10-20) Glucose 122 H (70-99(Fasting)) mg/dl Calcium 9.0 (8.5-10.1) mg/dl Magnesium 1.8 (1.7-2.4) mg/dl Total Bilirubin 1.2 H (0.2-1.0) mg/dl AST 38 (13-39) U/L ALT 22 (7-52) U/L Alkaline Phosphatase 125 H (34-104) U/L Troponin I High Sens 36.4 H (0-14) pg/ml C-Reactive Protein (0-0.5) mg/dl Total Protein 6.7 (6.0-8.3) gm/dl Albumin 3.5 (3.4-5.0) gm/dl Globulin 3.2 (2.5-4.0) gm/dl Albumin/Globulin Ratio 1.1 (0.9-2) Procalcitonin (0-0.5) ng/ml TSH (0.300-4.500) uIu/ml Urine Color Urine Appearance (Clear) Urine pH (4.5-7.5) Ur Specific [place] (1.000-1.030) Urine Protein (Negative) Urine Glucose (UA) (Negative) Urine Ketones (Negative) Urine Blood (Negative) Urine Nitrite (Negative) Urine Bilirubin (Negative) Urine Urobilinogen (Negative) Ur Leukocyte Esterase (Negative) Urine WBC (Auto) (0-5) /hpf Urine RBC (Auto) (0-4) /hpf U Hyaline Cast (Auto) (0-5) /lpf U Epithel Cells (Auto) (0-5) /lpf Urine Bacteria (Auto) (Negative) SARS-CoV-2, RNA, NAAT NEGATIVE (NEGATIVE) 03/19/22 03/19/22 03/19/22 Range/Units 18:39 18:39 18:39 WBC (4.8-10.8) K/ul RBC (3.93-5.22) M/uL Hgb (12.0-16.0) g/dl Hct (34.1-44.9) % MCV (80.0-100.0) fL MCH (25.0-34.0) pg MCHC (32.0-36.0) g/dL RDW Std Deviation (36.4-46.3) fL RDW Coeff of Libra (11.5-14.5) % Plt Count (130-400) K/uL MPV (9.4-12.3) fL Immature Gran % (Auto) % Neut % (Auto) % Lymph % (Auto) % [place] % (Auto) % Eos % (Auto) % Baso % (Auto) % Neut # (Auto) (1.4-6.5) K/uL Lymph # (Auto) (1.2-3.4) K/uL [place] # (Auto) (0.24-0.82) K/uL Eos # (Auto) (0-0.50) K/uL Baso # (Auto) (0-0.2) K/uL Immature Gran # (Auto) (0.00-0.02) K/uL Absolute Nucleated RBC (0-0) K/uL Nucleated RBC % (auto) % Sodium (136-145) mmol/L Potassium (3.5-5.1) mmol/L Chloride (98-107) mmol/L Carbon Dioxide (21-32) mmol/L Anion Gap (3-11) BUN (6-23) mg/dl Creatinine (0.6-1.2) mg/dl Est Cr Clr Drug Dosing ml/min Est GFR ( Amer) ml/min Est GFR (Non-Af Amer) ml/min BUN/Creatinine Ratio (10-20) Glucose (70-99(Fasting)) mg/dl Calcium (8.5-10.1) mg/dl Magnesium (1.7-2.4) mg/dl Total Bilirubin (0.2-1.0) mg/dl AST (13-39) U/L ALT (7-52) U/L Alkaline Phosphatase (34-104) U/L Troponin I High Sens (0-14) pg/ml C-Reactive Protein 7.97 H (0-0.5) mg/dl Total Protein (6.0-8.3) gm/dl Albumin (3.4-5.0) gm/dl Globulin (2.5-4.0) gm/dl Albumin/Globulin Ratio (0.9-2) Procalcitonin 0.14 (0-0.5) ng/ml TSH 0.853 (0.300-4.500) uIu/ml Urine Color Urine Appearance (Clear) Urine pH (4.5-7.5) Ur Specific [place] (1.000-1.030) Urine Protein (Negative) Urine Glucose (UA) (Negative) Urine Ketones (Negative) Urine Blood (Negative) Urine Nitrite (Negative) Urine Bilirubin (Negative) Urine Urobilinogen (Negative) Ur Leukocyte Esterase (Negative) Urine WBC (Auto) (0-5) /hpf Urine RBC (Auto) (0-4) /hpf U Hyaline Cast (Auto) (0-5) /lpf U Epithel Cells (Auto) (0-5) /lpf Urine Bacteria (Auto) (Negative) SARS-CoV-2, RNA, NAAT (NEGATIVE) 03/19/22 Range/Units 20:06 WBC (4.8-10.8) K/ul RBC (3.93-5.22) M/uL Hgb (12.0-16.0) g/dl Hct (34.1-44.9) % MCV (80.0-100.0) fL MCH (25.0-34.0) pg MCHC (32.0-36.0) g/dL RDW Std Deviation (36.4-46.3) fL RDW Coeff of Libra (11.5-14.5) % Plt Count (130-400) K/uL MPV (9.4-12.3) fL Immature Gran % (Auto) % Neut % (Auto) % Lymph % (Auto) % [place] % (Auto) % Eos % (Auto) % Baso % (Auto) % Neut # (Auto) (1.4-6.5) K/uL Lymph # (Auto) (1.2-3.4) K/uL [place] # (Auto) (0.24-0.82) K/uL Eos # (Auto) (0-0.50) K/uL Baso # (Auto) (0-0.2) K/uL Immature Gran # (Auto) (0.00-0.02) K/uL Absolute Nucleated RBC (0-0) K/uL Nucleated RBC % (auto) % Sodium (136-145) mmol/L Potassium (3.5-5.1) mmol/L Chloride (98-107) mmol/L Carbon Dioxide (21-32) mmol/L Anion Gap (3-11) BUN (6-23) mg/dl Creatinine (0.6-1.2) mg/dl Est Cr Clr Drug Dosing ml/min Est GFR ( Amer) ml/min Est GFR (Non-Af Amer) ml/min BUN/Creatinine Ratio (10-20) Glucose (70-99(Fasting)) mg/dl Calcium (8.5-10.1) mg/dl Magnesium (1.7-2.4) mg/dl Total Bilirubin (0.2-1.0) mg/dl AST (13-39) U/L ALT (7-52) U/L Alkaline Phosphatase (34-104) U/L Troponin I High Sens (0-14) pg/ml C-Reactive Protein (0-0.5) mg/dl Total Protein (6.0-8.3) gm/dl Albumin (3.4-5.0) gm/dl Globulin (2.5-4.0) gm/dl Albumin/Globulin Ratio (0.9-2) Procalcitonin (0-0.5) ng/ml TSH (0.300-4.500) uIu/ml Urine Color Yellow Urine Appearance Cloudy A (Clear) Urine pH 6.5 (4.5-7.5) Ur Specific [place] 1.016 (1.000-1.030) Urine Protein 2+ H (Negative) Urine Glucose (UA) Negative (Negative) Urine Ketones 1+ H (Negative) Urine Blood 2+ H (Negative) Urine Nitrite Negative (Negative) Urine Bilirubin Negative (Negative) Urine Urobilinogen Negative (Negative) Ur Leukocyte Esterase 2+ H (Negative) Urine WBC (Auto) >30 H (0-5) /hpf Urine RBC (Auto) >30 H (0-4) /hpf U Hyaline Cast (Auto) 1-5 (0-5) /lpf U Epithel Cells (Auto) 0-5 (0-5) /lpf Urine Bacteria (Auto) 4+ H (Negative) SARS-CoV-2, RNA, NAAT (NEGATIVE) Administered Medications Apixaban (Apixaban 2.5 Mg Tab) 2.5 mg PO BID AAKASH Stop: 04/18/22 23:15 Last Admin: 03/20/22 00:49 Dose: 2.5 mg Documented By: DEJA Sodium Chloride (Nss 1000ml) 500 mls @ 80 mls/hr IV .Q6H15M AAKASH Stop: 03/20/22 06:44 Last Admin: 03/20/22 00:50 Dose: 80 mls/hr Documented By: DEJA Discontinued Medications Sodium Chloride (Nss 1000ml) 500 mls @ 999 mls/hr IV .Q31M ONE Stop: 03/19/22 20:45 Last Infusion: 03/19/22 21:42 Dose: 0 mls/hr Documented By: Admin: 03/19/22 20:23 Dose: 999 mls/hr Documented By: DEJA Magnesium Sulfate/Dextrose (Magnesium Sulfate / D5w) 1 gm in 100 mls @ 50 mls/hr IV Q2H AAKASH Stop: 03/20/22 01:14 Last Infusion: 03/20/22 03:00 Dose: 0 mls/hr Documented By: Admin: 03/20/22 00:49 Dose: 50 mls/hr Documented By: Infusion: 03/20/22 00:49 Dose: 50 mls/hr Documented By: Admin: 03/19/22 23:16 Dose: 50 mls/hr Documented By: DEJA Ceftriaxone Sodium (Rocephin) 2,000 mg in 70 mls @ 140 mls/hr IV NOW STA Stop: 03/19/22 21:42 Last Infusion: 03/19/22 23:52 Dose: 0 mls/hr Documented By: Admin: 03/19/22 23:08 Dose: 140 mls/hr Documented By: DEJA Sodium Chloride (Nss 1000ml) 250 mls @ 999 mls/hr IV .Q16M ONE Stop: 03/19/22 21:59 Last Infusion: 03/19/22 23:53 Dose: 0 mls/hr Documented By: Admin: 03/19/22 23:09 Dose: 999 mls/hr Documented By: DEJA Potassium Chloride (Potassium Chloride Crtab 20 Meq Tabcr) 40 meq PO NOW STA Stop: 03/19/22 21:05 Last Admin: 03/19/22 23:08 Dose: 40 meq Documented By: DEJA Imaging Data Radiologist's Impression: Chest X-Ray 03/19/22 17:54 XR chest 1V portable HISTORY: 81 years-old Female weakness acute weakness COMPARISON: Chest radiographs 06/02/2021 TECHNIQUE: AP view of the chest FINDINGS: Cardiac silhouette is enlarged. Left subclavian pacer/AICD. Postoperative berkowitz ges of the right lung apex. No pneumothorax. Pulmonary vascular congestion with trace pleural effusions. Mild subsegmental left basilar densities favoring atelectasis. Degenerative changes of the shoulders and spine. Sigmoidal thoracolumbar scoliosis. IMPRESSION: 1. Cardiomegaly with pulmonary vascular congestion. 2. Trace pleural effusions. ACT 112: Negative or not required by law. The above report was generated using voice recognition software. It may contain grammatical, syntax or spelling errors. Electronically signed by: Gabino Rosales M.D. 03/19/2022 6:21 PM Blood Pressure Blood Pressure Findings: Elevated blood pressure Blood Pressure Disposition: further management by hospitalist Discharge Plan Visit Data Chief Complaint: Weakness Stated Complaint: weakness ED Provider: Julia Hernandez Discharge Problem: Acute UTI, Weakness, Elevated troponin Patient Disposition: Admitted As Inpatient Discharge Instructions Interventions: ED Discharge Assessment Last Done: 03/19/22 23:17
--- NOTE | 2022-03-19 20:53 | History & Physical Report ---
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 Generalized Weakness Patient presenting for approximately 1 day of generalized weakness without constitutional symptoms; of note, she does report some increased urinary frequency today, but has been drinking more water Work-up as follows: WBCs to 12 with left shift // Chronic normocytic anemia to 10.4 BUN 20/creatinine 0.90 with otherwise normal electrolytes High-sensitivity troponin 36.4 with possible -- will recheck once more Urinalysis demonstrating cloudy appearance with 2+ protein 2+ blood, 2+ leuk esterase in the setting of 4+ bacteria and over 30 WBCs and RBCs. COVID-negative Primarily suspect the generalized weakness at this time is secondary to dehydration and UTI. No e/o acute CHF, lung infection, GI issue, skin/MSK issue. Check blood cultures, UCX, procalcitonin, and CRP to further clarify inflammatory picture/infectious contribution Initiate ceftriaxone for treatment of UTI Given that patient is on chronic prednisone, will triple dose to 10 mg daily for 3 days, then return to 3 mg home dose daily Continue NSS at 100 cc an hour for 1 Lcarefully monitor volume status with history of HFrEF PT and OT will be consulted Monitor daily labs (2) Urinary tract infection: Plan: Suspected UTI Patient reporting 1 day of somewhat increased urinary frequency (though was drinking more water) as well as progressive fatigue Urinalysis demonstrating cloudy appearance with 2+ protein 2+ blood, 2+ leuk esterase in the setting of 4+ bacteria and over 30 WBCs and RBCs. Urine culture pending Treatment as abovecontinue ceftriaxone At this time, patient does not have any acute findings to suggest intra- abdominal process that would require immediate imaging. However, if any new symptoms develop, should consider obtaining CT of the abdomen pelvis. Should consider rechecking urinalysis given degree of RBCs, and possibly consider urine cytology if it persists after treatment of presumed UTI (3) Systolic CHF: Plan: HFrEF / CAD / History of Cardiac Arrest s/p AICD Placement Follows with [facility] cardiology Last TTE in 11/2021 reveals reduced left ventricular systolic function with LVEF at 45 to 50%, mild to moderate aortic regurgitation, mild to moderate mitral regurgitation. Appears hypovolemic on exam -- rehydrate as above Continue metoprolol and spironolactone Continue rosuvastatin, clopidogrel (4) GERD (gastroesophageal reflux disease): Plan: GERD Not on home PPIs; given chronic prednisone use, should consider daily initiation of low-dose agent Protonix 40 mg daily while here (5) Anxiety: Plan: Anxiety During acute phase of weakness, hold Ativanhowever, reinitiate when appropriate for nighttime use as patient does at home (6) Permanent atrial fibrillation: Plan: Atrial Fibrillation Permanent atrial fibrillation Continue amiodarone, Eliquis 2.5 mg twice daily (7) Rheumatoid arthritis: Plan: RA Currently well controlled with daily methotrexate and prednisone Prednisone 10 mg x 3 days then return to normal home dose of 3 mg daily (8) Prolonged QT interval: Plan: Prolonged QTc On admission, patient found to have QTC of 522 We will give oral potassium and 2 g of IV mag right now Avoid QTC prolonging medications Recheck EKG in a.m. 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 He is accompanied by his son. Patient tells me that she was otherwise in her normal health up until this morning, where she began feeling very weak. She describes this as a generalized feeling of having no energy. She denies any rigors or night sweats. She denies any chest pain, palpitations, shortness of breath, cough, abdominal pain, nausea, vomiting, urinary symptoms (although does report voiding a little more frequently than usual today, but is also been try to drink more water), or changes with bowel movements.She has been taking her medications as prescribed. She does tell me thatShe was recently treated for a flare of her RA, but this just consisted of taking a few more prednisone each day. She feels that her pain is well under control. Of note, her son recently tested positive for COVID, but had no extensive contact with him. Did state that he dropped off groceries on Saturday. She has not had any respiratory symptoms. Medications reviewed and include amiodarone, Eliquis 2.5 mg twice daily, Plavix, lisinopril, lorazepam, methotrexate, metoprolol, prednisone, rosuvastatin, spironolactone. Last TTE in 11/2021 reveals reduced left ventricular systolic function with LVEF at 45 to 50%, mild to moderate aortic regurgitation, mild to moderate mitral regurgitation. In the ED, patient was found to be hypertensive to 155/100 with tachycardia to 106. Weight today 52.2 kg from 50.8 on 01/23. She was saturating 93% on room air.Admission labs revealing of white count of 12 with left shift, hemoglobin 10.4 (baseline 10.1) anion gap 12, total bilirubin 1.2, alkaline phosphatase 125, high-sensitivity troponin 36.4. Urine revealing cloudy appearance with 2+ protein, 2+ blood, 2+ leuk esterase in the setting of over 30 WBCs and RBCs and 4+ urine bacteria.Her chest x-ray demonstrated cardiovascular with pulmonary vascular congestion as well as trace pleural effusions. ECG demonstrating AFib with RVR and prolonged QTc at [address] depressions. She was given IV fluid. ---- This documentation was created utilizing dictation software. As such, syntax, grammatical, and word-choice errors may be present. Notes are screened prior to submission in an attempt to reduce these errors. If there are any questions or concerns, please contact the author directly for clarification. Allergies Allergy/AdvReac Type Severity Reaction Status Date / Time morphine AdvReac Intermediate NAUSEA Verified 03/19/22 20:31 Home Medications Medication Instructions Recorded Confirmed Type clopidogrel 75 mg tablet (Plavix) 75 mg PO QAM 05/23/21 03/19/22 History folic acid 1 mg tablet 1 mg PO DAILY 05/24/21 03/19/22 History amiodarone 200 mg tablet 200 mg PO DAILY #90 tabs 08/01/21 03/19/22 Rx lisinopril 10 mg tablet 10 mg PO DAILY #90 tabs 08/01/21 03/19/22 Rx rosuvastatin 5 mg tablet 5 mg PO QAM #90 tabs 09/04/21 03/19/22 Rx metoprolol succinate 100 mg 150 mg PO DAILY #120 tabs 10/18/21 03/19/22 Rx tablet,extended release 24 hr spironolactone 25 mg tablet 25 mg PO DAILY #90 tabs 12/07/21 03/19/22 Rx apixaban 2.5 mg tablet 2.5 mg PO BID #180 tabs 01/19/22 03/19/22 Rx prednisone 1 mg tablet See Rx Instructions .Route 01/26/22 03/19/22 Rx .COMPLEX #300 tabs methotrexate sodium 2.5 mg tablet See Rx Instructions .Route 02/19/22 03/19/22 Rx .COMPLEX #45 tabs lorazepam 0.5 mg tablet 0.5 mg PO HS PRN anxiety #30 tabs 03/12/22 03/19/22 Rx Past Med/Surg History Medical History Atrial fibrillation Atrial fibrillation with RVR Brain aneurysm under surveillance by PCP (stable x years) Bronchitis (~03/23/19) Chronic steroid use GERD (gastroesophageal reflux disease) Hyperlipidemia Hypertension Kidney stones Osteoporosis, unspecified PAD (peripheral artery disease) Pneumonia Rheumatoid arthritis Systolic CHF Surgical History H/O foot surgery History of implantable cardiac defibrillator (ICD) History of lithotripsy History of thoracotomy FOR COLLAPSED LUNG - HAD WEDGE RESECTION LOWER RIGHT Hx of cataract extraction Family History Mother Arthritis Father Congestive heart failure (CHF) Aunt Breast cancer Sister Stroke Other Thoracic aortic aneurysm Denies family history of Ovarian cancer Prostate cancer Diabetes Myocardial infarction Lung cancer Colorectal cancer Social History Smoking Status: Former smoker Age Started Using Tobacco: 16; Age Quit Using Tobacco: 45; packs per day: 0.5; Second Hand Exposure: No; Hx Alcohol Use: No Hx Substance Use: No Preferred Language: Kyrgyz Communication Ability: Effective Visual Impairment: Limited Hearing Ability: Normal Cobol Engineer Required: No Beliefs That Will Affect Care: None marital status: / Current Living Situation: Alone current occupational status: retired How many Children do You have: 5 Feels Safe at Home: Yes Childhood Exposure to Second-Hand Smoke: Yes (dad did off and on ) caffeine: Yes (coffee) Dental Care, Regularly: No Physical Activity Frequency: Daily Physical Activity Frequency Comment: walks daily Seatbelt Use: always Sunscreen Use: Yes Assistive Devices: Cane Review of Systems Review of Systems: as per HPI Physical Exam Physical Exam: General: 81-year old female who is alert, oriented, but very tired. HEENT: NCAT. - Eyes - Sclera are white, anicteric, and without injection. - Mouth - dry mucus membranes - Neck - supple, no appreciable JVD Cardiac: Normal rate and irregular rhythm; S1 and S2 present with no murmurs, rubs, or gallops. Pulmonary: Good respiratory effort with symmetric expansion of the chest. No use of accessory muscles. Lungs were clear to auscultation bilaterally with no crackles or wheezes. Abdominal: Normoactive bowel sounds. Abdomen was soft, nondistended, and non- tender to palpation. Extremities: Upper and lower extremities are warm and well perfused. No peripheral edema in the lower extremities bilaterally Psych: Well-developed, well-nourished, appropriately dressed for occasion. Behavior is cooperative and appropriate. Affect is WNL. Insight is appropriate. Neuro: CNII-XII grossly intact. UE, LE strength 4/5 bilaterally. Sensation grossly intact. Results & Data Results & Data ([facility]) Vital Signs (Past 12 Hours) Vital Signs Temp Pulse Pulse Resp BP BP Pulse Ox 03/19/22 20:30 96 H 22 141/80 H 95 03/19/22 17:54 03/19/22 18:35 97 H 24 95 03/19/22 18:26 98 H 24 155/98 H 93 03/19/22 16:58 37.4 C 106 H 18 155/98 H 93 O2 Del Method 03/19/22 20:30 03/19/22 17:54 Room Air 03/19/22 18:35 Room Air 03/19/22 18:26 Room Air 03/19/22 16:58 Room Air Supervising Physician Co-Signing Physician Notes Attending addendum: I have supervised the medical residents activities, and agree with the H&P unless as otherwise noted. Assessment and Plan: Urinary tract infection- Follow urine culture and sensitivity Follow blood cultures Empiric ceftriaxone 1 g IV every 24 hours HFrEF/CAD/history of cardiac arrest status post AICD placement/elevated highly sensitive troponin/atrial fibrillation- EF 45 to 50% on 12/04 with mild to moderate AI and mild to moderate MR Continue metoprolol, spironolactone, clopidogrel, amiodarone and Eliquis Troponin admission 36.4, follow serially Optimize magnesium and potassium and follow serially RA- Continue methotrexate as outpatient Mild stress dosing of prednisone as noted Generalized weakness- Likely combination of above Consult PT/OT Remaining orders and notations as noted Resident Activity Tracking Resident Involvement: Resident Care Provided Care Provided: Adult Hospital Medicine (1) Rheumatoid arthritis Rheumatoid arthritis location: multiple sites Rheumatoid factor presence: with rheumatoid factor Qualified Code(s): M05.79 - Rheumatoid arthritis with rheumatoid factor of multiple sites without organ or systems involvement
[2022-03-19] MEDS ORDERED: POTASSIUM CHLORIDE CRTAB 20 MEQ TABCR PO STA (21:04)
[2022-03-19] MEDS ORDERED: ACETAMINOPHEN 325 MG TAB PO PRN (21:06)
[2022-03-19] MEDS ORDERED: cefTRIAXone SODIUM 2,000 MG/70 ML BAG IV STA (21:13)
[2022-03-19] MEDS ORDERED: SODIUM CHLORIDE 0.9% 1000ML 250 ML IV ONE (21:44)
[2022-03-19] MEDS: MAGNESIUM SULFATE / D5W 1 GM/100 ML BAG IV SCH (23:16)
[2022-03-20] MEDS ORDERED: SODIUM CHLORIDE 0.9% 1000ML 500 ML IV SCH (00:30)
[2022-03-20] MEDS: APIXABAN 2.5 MG TAB PO SCH ×2 (00:49→08:31)
[2022-03-20] MEDS: MAGNESIUM SULFATE / D5W 1 GM/100 ML BAG IV SCH (00:49)
[2022-03-20 07:03] LABS: Basophils # (auto) 0.03 K/uL (0-0.2); Basophils % (auto) 0.2 %; Eosinophils # (auto) 0.01 K/uL (0-0.50); Eosinophils % (auto) 0.1 %; Hematocrit (blood only) 35.6 % (34.1-44.9); Hemoglobin 10.6 g/dl (12.0-16.0); Immature Granulocytes # (auto) 0.12 K/uL (0.00-0.02); Immature Granulocytes % (auto) 0.9 %; Lymphocytes # (auto) 2.09 K/uL (1.2-3.4); Lymphocytes % (auto) 15.1 %; Mean Corpuscular Hemoglobin 26.7 pg (25.0-34.0); Mean Corpuscular Hgb Conc 29.8 g/dL (32.0-36.0); Mean Corpuscular Volume 89.7 fL (80.0-100.0); Mean Platelet Volume 9.2 fL (9.4-12.3); Monocytes # (auto) 1.11 K/uL (0.24-0.82); Neutrophils # (auto) 10.45 K/uL (1.4-6.5); Neutrophils % (auto) 75.7 %; Nucleated RBC # (auto) 0.02 K/uL (0-0); Nucleated RBC % (auto) 0.1 %; Platelet Count 302 K/uL (130-400); RDW Standard Deviation 61.7 fL (36.4-46.3); Red Blood Count 3.97 M/uL (3.93-5.22); White Blood Count 13.81 K/ul (4.8-10.8)
[2022-03-20 07:47] LABS: Albumin Globulin Ratio 1.1 (0.9-2); Albumin Level 3.3 gm/dl (3.4-5.0); BUN Creatinine Ratio 23.6 (10-20); Bilirubin,Total 1.1 mg/dl (0.2-1.0); Calcium 8.6 mg/dl (8.5-10.1); Creatinine Clr Calc Pharmacy 31.7 ml/min; Est GFR (African American) 54.5 ml/min; Magnesium 2.6 mg/dl (1.7-2.4); Potassium 4.2 mmol/L (3.5-5.1); Total Protein 6.3 gm/dl (6.0-8.3)
[2022-03-20] MEDS: predniSONE 10 MG TABLET PO SCH (08:23)
[2022-03-20] MEDS: METOPROLOL SUCC 50MG EXT REL TAB PO SCH (08:23)
[2022-03-20] MEDS: FOLIC ACID 1 MG TAB PO SCH (08:24)
[2022-03-20] MEDS ORDERED: AMIODARONE 200 MG TAB PO SCH (09:00)
[2022-03-20] MEDS ORDERED: PANTOprazole 40 MG TAB PO SCH (09:00)
[2022-03-20] MEDS ORDERED: SPIRONOLACTONE 25 MG TAB PO SCH (09:00)
[2022-03-20] MEDS ORDERED: lisinopril 10 MG TAB PO SCH (09:00)
[2022-03-20] MEDS ORDERED: CLOPIDOGREL BISULFATE 75 MG TAB PO SCH (09:00)
[2022-03-20] MEDS ORDERED: ROSUVASTATIN CALCIUM 5 MG TAB PO SCH (09:00)
--- NOTE | 2022-03-20 09:04 | Hospitalist Progress Note ---
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/p AICD placement, rheumatoid arthritis with chronic steroid use, peripheral arterial disease who presented to [facility] for evaluation of weakness, subsequently found to be dehydrated on exam with evidence of cystitis/possible +UA Of note, son +COVID, patient negative on admit, 96% on RA [facility]poor PO intake WBC 11.9k on admit, afebrile (although immunocompromised) Urine cx GNB Blood cultures obtained, + enterobacterales, proteus consideration for urinary source, however suspect related to abdominal findings as below Initially placed on Ceftriaxone for urinary coverage, however WBC elevated to 13.8K on AM labs and acute elevation in LFTs/transaminitis (TB 1.2/ALP 126 on admit) with prior GB. --> TB 1.1, AST 662 (38), ALT 317 (22), ALP 126. INR added to labs -- 2.4 RUQ ordered, added lactic --> returned at 10.4! Given 250cc bolus NSS (Hx CHF, EF 40-45%, mild-mod AR, mold-mod MR), continued on gentle IVF. Repeat lactic 9.9 Obtained stat CTA/P: * There is gallbladder wall thickening with pericholecystic edema. Hyperattenuating material within the gallbladder lumen is suggestive of vicarious excretion of contrast. Findings could be further evaluated with a right upper quadrant abdominal ultrasound. * Cardiomegaly with fluid overload manifested by right layering pleural effusions, equivocal pulmonary edema with trace ascites and mild body wall edema. * Mild wall thickening of the duodenum is likely reactive secondary to the associated gallbladder findings. A mild nonspecific duodenitis could appear similarly. * No bowel obstruction. * Nonobstructing bilateral nephrolithiasis. * Atherosclerotic vascular disease with high-grade stenosis involving the mid aspect of the superior mesenteric artery, progressed from the 06/19/2019 exam. Chronic high-grade stenosis at the origin of the left renal and inferior mesenteric arteries is unchanged. Given elevated lactic acid, concerns for ischemia, however NO blood in stool or significant abdominal pain on exam indicating ischemic bowel at this time, concerning for gangrenous gallbladder Switched to IV Zosyn for better abdominal coverage/GB Continues on gentle IVF, placed on PPI IV BID in meantime Remains NPO Labetalol IV prn for elevated HR -- afib, slight elevation on admit, improved when evaluated with interventions as above Consulted general surgery -- rec'd transfer for IR, then cholecystectomy Discussed with [facility], hospitalist (Dr Martin), ICU triage provider (Dr Hudson), general surgery (Dr Mosher) and interventional radiologist regarding patient and accepted in transfer. Bed confirmed [place]/ ICU room# 552. Transfer paperwork filled out, did attempt to arrange life flight however not flying. Asked ER CM to contact [employer], also not flying. ACLS transportation attempting to be made but in meantime contacted and discussed with ICU team and will place in ICU while awaiting transfer given medical complexity. Further care as outlined by ICU team, labs, etc -- of note, admit in May 2021 for cardiact arrest/torsades felt 2nd to hypomagnesemia. Mag 2.6 on check. Ensure stays >2 (2) Cholecystitis: Plan: concerns for gangrenous GB as above, on imaging. RUQ ordered as NPO for further eval of biliary system Impression: 1. Diffuse gallbladder edema most pronounced at the hepatic surface. No gallstones. Therefore, this is likely secondary to the patient's edematous state. 2. Normal caliber common bile duct. General surgery consulted -- rec'd transfer as above, tx to ICU from ER as above while awaiting transport (3) Transaminitis: Plan: acute elevation, no hypotension however, mentating no jaundice ?GB vs ischemia vs related to not yet positive COVID testing (exposure to son, negative testing on admit) monitor on repeat/pending transfer (4) Bacteremia: Plan: + blood cultures 1/2 bottles, see above could be from urinary sources however suspected from abd as above (5) Acute UTI: Plan: urine cx GNB, placed on ceftriaxone as above --> switched to Zosyn as above which should also cover Monitor final cx (6) Generalized weakness: Plan: multifactorial -- see above PT/OT consulted however instructed not need eval at time I was seeing patient given transfer as above -- was walking to bathroom prior to eval (7) Urinary tract infection: Plan: as above (8) Systolic CHF: Plan: HFrEF / CAD / History of Cardiac Arrest s/p AICD Placement in May 2021 2nd to torsades/hypomagnesemia (mag > 2 on admit as above) Follows with [facility], last CARLOS reduced left ventricular systolic function with LVEF at 45 to 50%, mild to moderate aortic regurgitation, mild to moderate mitral regurgitation. Imaging does show cardiomegaly with fluid overload manifested by R layering pleural effusions equivocal pulm edema w/ trace ascites and mild body wall edema Sat ok on RA, denied shortness of breath 250cc NSS as above, continues on gentle IVF Continued metoprolol, spironolactone, crestor, plavix -- did get her doses this morning (9) GERD (gastroesophageal reflux disease): Plan: GERD Not on PPI at home -- placed on protonix 40mg daily while inpatient given chronic prednisone use Switched to protonix IV BID while inpatient/NPO given duodenitis on imaging however 2nd to GB findings (10) Anxiety: Plan: Ativan placed on hold on admit -- resumed HS prn (11) Permanent atrial fibrillation: Plan: Permanent, however remains on amiodarone? Continued eliquis BID -- placed on hold for this evening as she got AM dose and likely need for surgical intervention as above also placed plavix on hold (12) Rheumatoid arthritis: Plan: Controlled outpatient with methotrexate and prednisone -- placed on 10mg pre dnisone x 3 days on admit (home dose 3mg daily) holding MTX given Zosyn use (13) Prolonged QT interval: Plan: Prolonged QTc On admission, patient found to have QTC of 522 Given 2gm IV mag, repeat EKG ordered (initial afib/RVR 109bpm) Mag 2.6 on repeat (14) Weakness: Plan: as above (15) Elevated troponin: Plan: 2nd to demand from above no reported chest pain Plan awaiting transfer to [place], [place]/ ICU room# 552. Admission and Anticipated Discharge Date Admission Date: March 19, 2022 Supervising Physician Co-Signing Physician Notes Attending Attestation - Pt seen/examined, chart reviewed, care plan d/w DELMAR Canas. I agree w/ the jones components of her documentation. Very ill complex 81yo female who presented with worsening weakness. Labs today with acute worsening of LFTs, rising INR, abnormal CT a/p and RUQ u/s of gall bladder. Blood cx's + for GNR. Urine cx + for GNR. During my bedside rounds patient very ill in appearance - weak, fatigued, poor color. Reports her son has COVID - dx yesterday with +test. Son dropped food off to her home on Saturday -- he was masked. Visit was very brief. Pt denies any abdominal pain - just very weak. vitals - BPs wnl; temps - low gen - toxic-appearing, sickly, thin mouth - MM dry neck - mild JVD present CV - RRR, s1 s2, 2/6 systolic murmur LSB lungs - decreased BS bases abd - soft NT ND BS+; no HSM; no peritoneal signs ext - cool ext x 4, pulses 1+ b/l at best labs reviewed blood cx's reviewed imaging reviewed A/P: 1. severe lactic acidosis 2. acute abnormal LFTs 3. rapidly rising INR 4. GNR septicemia 5. GNR UTI 6. severe stenosis of SMA in absence of abdominal pain 7. chronic systolic CHF 8. ICD status 9. h/o a.fib 10. abnormal appearing gall bladder on multiple imaging studies 11. COVID-19 exposure #2 - cholecystitis/CBD obstruction? shock liver? acute viral hepatitis? other? #4 - source - urine? gall bladder? both? agree with gentle fluids, IV zosyn, serial lactates #3 - acute liver injury is most likely explanation, but has had no documented hypotension to suggest shock liver, etc #6 - no abd pain despite the SMA stenosis #7 - radiographically has mild pulm edema/effusions, but otherwise is intra- vascularly dry #11 - despite negative COVID testing keep as PUI and thus COVID isolation gen surg consulted, they advise referral to tertiary care for surgical evaluation Ms Canas contacted [facility] [place] [place] and patient accepted; awaiting transfer while awaiting transfer will admit to ICU due to concerns for further decompensation appreciate gen surg and switchboard receptionist consultations repeat labs am Yordy Godoy MD Subjective Patient evaluated in ER. Tech putting in second IV. Had been feeling fairly well, weak. Reported about a week of dry heaving at home. Not great appetite. Had checked lactic, elevated to 10.4 and CTAP obtained w/ concerns for acute GB/duodenitis but also regarding severe stenosis concerning for ischemia. Patient denied abdominal pain but slightly uncomfortable to deep palpation of her RUQ. Acute elevation in LFTs. Discussed with patient/general surgery recommending transfer for IR/stenting, then removal of GB. Discussed/updated case with Ms Jordan's son Jon as discussed with patient she wanted him updated and that he is home not well, +COVID. She denies having any contact with him, however did have food dropped off by him on the counter but no actual physical contact. Made PUI/ isolation precautions. Of note, Nikki confirmed with me that she is infact a DNR, however discussed medications/transfer and she was agreeable to me making arrangements. Discussed with [facility], hospitalist (Dr Mratin), ICU triage provider (Dr Hudson), general surgery (Dr Mosher) and interventional radiologist regarding patient and accepted in transfer. Bed confirmed [place]/ ICU room# 552. Transfer paperwork filled out, did attempt to arrange life flight however not flying. Asked ER CM to contact [employer], also not flying. ACLS transportation attempting to be made but in meantime contacted and discussed with ICU team and will place in ICU while awaiting transfer given medical complexity. Review of Systems Review of Systems: All systems reviewed & are unremarkable except as noted in HPI & below Physical Exam Physical Exam: General: 81yo woman in no acute distress sitting up in hospital bed, getting second IV placed, alert/oriented x 3, reportedly just got back from the bathroom HEENT: head normocephalic, atraumatic, trachea midline without deviation, eyes anicteric Resp: diminished in the bases, no wheezing/crackles, no tachypneic/cough, on room air with SpO2 97% CV: irregularly irregular rhythm, +murmur, no pitting edema/calf tenderness GI: +BS, slight distention, nontender to palpation with exception to deep palpation RUQ, no guarding/rigidity : no cintron MSK/NEURO: no focal deficit/slurred speech/pronator drift Skin: warm, dry, perfused Results & Data Results & Data ([facility]) Vital Signs (Past 12 Hours) Vital Signs Temp Pulse Resp BP Pulse Ox O2 Del Method 03/20/22 04:14 36.5 C 90 24 158/89 H 96 Room Air 03/20/22 00:53 36.7 C 105 H 24 146/97 H 96 Room Air 03/19/22 22:23 105 H 24 164/103 H 95 Room Air Laboratory Results 03/20/22 03/20/22 03/20/22 Range/Units 06:43 06:43 06:43 WBC 13.81 H (4.8-10.8) K/ul RBC 3.97 (3.93-5.22) M/uL Hgb 10.6 L (12.0-16.0) g/dl Hct 35.6 (34.1-44.9) % MCV 89.7 (80.0-100.0) fL MCH 26.7 (25.0-34.0) pg MCHC 29.8 L (32.0-36.0) g/dL RDW Std Deviation 61.7 H (36.4-46.3) fL RDW Coeff of Libra 19.0 H (11.5-14.5) % Plt Count 302 (130-400) K/uL MPV 9.2 L (9.4-12.3) fL Immature Gran % (Auto) 0.9 % Neut % (Auto) 75.7 % Lymph % (Auto) 15.1 % Dupage % (Auto) 8.0 % Eos % (Auto) 0.1 % Baso % (Auto) 0.2 % Neut # (Auto) 10.45 H (1.4-6.5) K/uL Lymph # (Auto) 2.09 (1.2-3.4) K/uL Dupage # (Auto) 1.11 H (0.24-0.82) K/uL Eos # (Auto) 0.01 (0-0.50) K/uL Baso # (Auto) 0.03 (0-0.2) K/uL Immature Gran # (Auto) 0.12 H (0.00-0.02) K/uL Absolute Nucleated RBC 0.02 H (0-0) K/uL Nucleated RBC % (auto) 0.1 % Sodium 141 (136-145) mmol/L Potassium 4.2 (3.5-5.1) mmol/L Chloride 106 (98-107) mmol/L Carbon Dioxide 21 (21-32) mmol/L Anion Gap 14 H (3-11) BUN 26 H (6-23) mg/dl Creatinine 1.10 (0.6-1.2) mg/dl Est Cr Clr Drug Dosing 31.7 ml/min Est GFR ( Amer) 54.5 ml/min Est GFR (Non-Af Amer) 47.0 ml/min BUN/Creatinine Ratio 23.6 H (10-20) Glucose 169 H (70-99(Fasting)) mg/dl Calcium 8.6 (8.5-10.1) mg/dl Magnesium 2.6 H (1.7-2.4) mg/dl Total Bilirubin 1.1 H (0.2-1.0) mg/dl AST 662 H (13-39) U/L ALT 317 H (7-52) U/L Alkaline Phosphatase 126 H (34-104) U/L Troponin I High Sens 59.4 H* (0-14) pg/ml C-Reactive Protein (0-0.5) mg/dl Total Protein 6.3 (6.0-8.3) gm/dl Albumin 3.3 L (3.4-5.0) gm/dl Globulin 3.0 (2.5-4.0) gm/dl Albumin/Globulin Ratio 1.1 (0.9-2) Procalcitonin (0-0.5) ng/ml TSH (0.300-4.500) uIu/ml Urine Color Urine Appearance (Clear) Urine pH (4.5-7.5) Ur Specific Snyder (1.000-1.030) Urine Protein (Negative) Urine Glucose (UA) (Negative) Urine Ketones (Negative) Urine Blood (Negative) Urine Nitrite (Negative) Urine Bilirubin (Negative) Urine Urobilinogen (Negative) Ur Leukocyte Esterase (Negative) Urine WBC (Auto) (0-5) /hpf Urine RBC (Auto) (0-4) /hpf U Hyaline Cast (Auto) (0-5) /lpf U Epithel Cells (Auto) (0-5) /lpf Urine Bacteria (Auto) (Negative) SARS-CoV-2, RNA, NAAT (NEGATIVE) 03/19/22 03/19/22 03/19/22 Range/Units 22:52 20:06 18:39 WBC (4.8-10.8) K/ul RBC (3.93-5.22) M/uL Hgb (12.0-16.0) g/dl Hct (34.1-44.9) % MCV (80.0-100.0) fL MCH (25.0-34.0) pg MCHC (32.0-36.0) g/dL RDW Std Deviation (36.4-46.3) fL RDW Coeff of Libra (11.5-14.5) % Plt Count (130-400) K/uL MPV (9.4-12.3) fL Immature Gran % (Auto) % Neut % (Auto) % Lymph % (Auto) % Dupage % (Auto) % Eos % (Auto) % Baso % (Auto) % Neut # (Auto) (1.4-6.5) K/uL Lymph # (Auto) (1.2-3.4) K/uL Dupage # (Auto) (0.24-0.82) K/uL Eos # (Auto) (0-0.50) K/uL Baso # (Auto) (0-0.2) K/uL Immature Gran # (Auto) (0.00-0.02) K/uL Absolute Nucleated RBC (0-0) K/uL Nucleated RBC % (auto) % Sodium (136-145) mmol/L Potassium (3.5-5.1) mmol/L Chloride (98-107) mmol/L Carbon Dioxide (21-32) mmol/L Anion Gap (3-11) BUN (6-23) mg/dl Creatinine (0.6-1.2) mg/dl Est Cr Clr Drug Dosing ml/min Est GFR ( Amer) ml/min Est GFR (Non-Af Amer) ml/min BUN/Creatinine Ratio (10-20) Glucose (70-99(Fasting)) mg/dl Calcium (8.5-10.1) mg/dl Magnesium (1.7-2.4) mg/dl Total Bilirubin (0.2-1.0) mg/dl AST (13-39) U/L ALT (7-52) U/L Alkaline Phosphatase (34-104) U/L Troponin I High Sens 52.3 H* D (0-14) pg/ml C-Reactive Protein 7.97 H (0-0.5) mg/dl Total Protein (6.0-8.3) gm/dl Albumin (3.4-5.0) gm/dl Globulin (2.5-4.0) gm/dl Albumin/Globulin Ratio (0.9-2) Procalcitonin (0-0.5) ng/ml TSH (0.300-4.500) uIu/ml Urine Color Yellow Urine Appearance Cloudy A (Clear) Urine pH 6.5 (4.5-7.5) Ur Specific Snyder 1.016 (1.000-1.030) Urine Protein 2+ H (Negative) Urine Glucose (UA) Negative (Negative) Urine Ketones 1+ H (Negative) Urine Blood 2+ H (Negative) Urine Nitrite Negative (Negative) Urine Bilirubin Negative (Negative) Urine Urobilinogen Negative (Negative) Ur Leukocyte Esterase 2+ H (Negative) Urine WBC (Auto) >30 H (0-5) /hpf Urine RBC (Auto) >30 H (0-4) /hpf U Hyaline Cast (Auto) 1-5 (0-5) /lpf U Epithel Cells (Auto) 0-5 (0-5) /lpf Urine Bacteria (Auto) 4+ H (Negative) SARS-CoV-2, RNA, NAAT (NEGATIVE) 03/19/22 03/19/22 03/19/22 Range/Units 18:39 18:39 18:39 WBC (4.8-10.8) K/ul RBC (3.93-5.22) M/uL Hgb (12.0-16.0) g/dl Hct (34.1-44.9) % MCV (80.0-100.0) fL MCH (25.0-34.0) pg MCHC (32.0-36.0) g/dL RDW Std Deviation (36.4-46.3) fL RDW Coeff of Libra (11.5-14.5) % Plt Count (130-400) K/uL MPV (9.4-12.3) fL Immature Gran % (Auto) % Neut % (Auto) % Lymph % (Auto) % Dupage % (Auto) % Eos % (Auto) % Baso % (Auto) % Neut # (Auto) (1.4-6.5) K/uL Lymph # (Auto) (1.2-3.4) K/uL Dupage # (Auto) (0.24-0.82) K/uL Eos # (Auto) (0-0.50) K/uL Baso # (Auto) (0-0.2) K/uL Immature Gran # (Auto) (0.00-0.02) K/uL Absolute Nucleated RBC (0-0) K/uL Nucleated RBC % (auto) % Sodium 143 (136-145) mmol/L Potassium 3.5 (3.5-5.1) mmol/L Chloride 106 (98-107) mmol/L Carbon Dioxide 25 (21-32) mmol/L Anion Gap 12 H (3-11) BUN 20 (6-23) mg/dl Creatinine 0.98 (0.6-1.2) mg/dl Est Cr Clr Drug Dosing 35.6 ml/min Est GFR ( Amer) 62.7 ml/min Est GFR (Non-Af Amer) 54.1 ml/min BUN/Creatinine Ratio 20.4 H (10-20) Glucose 122 H (70-99(Fasting)) mg/dl Calcium 9.0 (8.5-10.1) mg/dl Magnesium 1.8 (1.7-2.4) mg/dl Total Bilirubin 1.2 H (0.2-1.0) mg/dl AST 38 (13-39) U/L ALT 22 (7-52) U/L Alkaline Phosphatase 125 H (34-104) U/L Troponin I High Sens 36.4 H (0-14) pg/ml C-Reactive Protein (0-0.5) mg/dl Total Protein 6.7 (6.0-8.3) gm/dl Albumin 3.5 (3.4-5.0) gm/dl Globulin 3.2 (2.5-4.0) gm/dl Albumin/Globulin Ratio 1.1 (0.9-2) Procalcitonin 0.14 (0-0.5) ng/ml TSH 0.853 (0.300-4.500) uIu/ml Urine Color Urine Appearance (Clear) Urine pH (4.5-7.5) Ur Specific Snyder (1.000-1.030) Urine Protein (Negative) Urine Glucose (UA) (Negative) Urine Ketones (Negative) Urine Blood (Negative) Urine Nitrite (Negative) Urine Bilirubin (Negative) Urine Urobilinogen (Negative) Ur Leukocyte Esterase (Negative) Urine WBC (Auto) (0-5) /hpf Urine RBC (Auto) (0-4) /hpf U Hyaline Cast (Auto) (0-5) /lpf U Epithel Cells (Auto) (0-5) /lpf Urine Bacteria (Auto) (Negative) SARS-CoV-2, RNA, NAAT (NEGATIVE) 03/19/22 03/19/22 Range/Units 18:39 18:34 WBC 11.99 H (4.8-10.8) K/ul RBC 3.91 L (3.93-5.22) M/uL Hgb 10.4 L (12.0-16.0) g/dl Hct 34.0 L (34.1-44.9) % MCV 87.0 (80.0-100.0) fL MCH 26.6 (25.0-34.0) pg MCHC 30.6 L (32.0-36.0) g/dL RDW Std Deviation 58.6 H (36.4-46.3) fL RDW Coeff of Libra 18.8 H (11.5-14.5) % Plt Count 309 (130-400) K/uL MPV 9.2 L (9.4-12.3) fL Immature Gran % (Auto) 0.8 % Neut % (Auto) 80.1 % Lymph % (Auto) 11.0 % Dupage % (Auto) 7.4 % Eos % (Auto) 0.2 % Baso % (Auto) 0.5 % Neut # (Auto) 9.61 H (1.4-6.5) K/uL Lymph # (Auto) 1.32 (1.2-3.4) K/uL Dupage # (Auto) 0.89 H (0.24-0.82) K/uL Eos # (Auto) 0.02 (0-0.50) K/uL Baso # (Auto) 0.06 (0-0.2) K/uL Immature Gran # (Auto) 0.09 H (0.00-0.02) K/uL Absolute Nucleated RBC 0.02 H (0-0) K/uL Nucleated RBC % (auto) 0.2 % Sodium (136-145) mmol/L Potassium (3.5-5.1) mmol/L Chloride (98-107) mmol/L Carbon Dioxide (21-32) mmol/L Anion Gap (3-11) BUN (6-23) mg/dl Creatinine (0.6-1.2) mg/dl Est Cr Clr Drug Dosing ml/min Est GFR ( Amer) ml/min Est GFR (Non-Af Amer) ml/min BUN/Creatinine Ratio (10-20) Glucose (70-99(Fasting)) mg/dl Calcium (8.5-10.1) mg/dl Magnesium (1.7-2.4) mg/dl Total Bilirubin (0.2-1.0) mg/dl AST (13-39) U/L ALT (7-52) U/L Alkaline Phosphatase (34-104) U/L Troponin I High Sens (0-14) pg/ml C-Reactive Protein (0-0.5) mg/dl Total Protein (6.0-8.3) gm/dl Albumin (3.4-5.0) gm/dl Globulin (2.5-4.0) gm/dl Albumin/Globulin Ratio (0.9-2) Procalcitonin (0-0.5) ng/ml TSH (0.300-4.500) uIu/ml Urine Color Urine Appearance (Clear) Urine pH (4.5-7.5) Ur Specific Snyder (1.000-1.030) Urine Protein (Negative) Urine Glucose (UA) (Negative) Urine Ketones (Negative) Urine Blood (Negative) Urine Nitrite (Negative) Urine Bilirubin (Negative) Urine Urobilinogen (Negative) Ur Leukocyte Esterase (Negative) Urine WBC (Auto) (0-5) /hpf Urine RBC (Auto) (0-4) /hpf U Hyaline Cast (Auto) (0-5) /lpf U Epithel Cells (Auto) (0-5) /lpf Urine Bacteria (Auto) (Negative) SARS-CoV-2, RNA, NAAT NEGATIVE (NEGATIVE) Diagnostic Findings Chest X-Ray 03/19/22 17:54 XR chest 1V portable HISTORY: 81 years-old Female weakness acute weakness COMPARISON: Chest radiographs 06/02/2021 TECHNIQUE: AP view of the chest FINDINGS: Cardiac silhouette is enlarged. Left subclavian pacer/AICD. Postoperative changes of the right lung apex. No pneumothorax. Pulmonary vascular congestion with trace pleural effusions. Mild subsegmental left basilar densities favoring atelectasis. Degenerative changes of the shoulders and spine. Sigmoidal thoraco lumbar scoliosis. IMPRESSION: 1. Cardiomegaly with pulmonary vascular congestion. 2. Trace pleural effusions. ACT 112: Negative or not required by law. The above report was generated using voice recognition software. It may contain grammatical, syntax or spelling errors. Electronically signed by: Gabino Rosales M.D. 03/19/2022 6:21 PM Abdomen/Pelvis CT 03/20/22 08:[address] WITH IV CONTRAST CT DOSE: 275.56 mGycm HISTORY: Acute weakness with elevated LFTs. weakness, acute elevation LFT TECHNIQUE: Multiaxial CT images of the abdomen and pelvis were performed following the IV administration of 88 cc of Optiray, A dose lowering technique was utilized adhering to the principles of ALARA. COMPARISON STUDY: Chest CT 05/28/2021, CT abdomen and pelvis 06/02/2021 contrast CTA abdomen and pelvis with lower extremity runoff 06/19/2019. FINDINGS: Marked cardiomegaly with partially imaged pacer leads. Coronary artery calcifications. No pericardial effusion. Small right with small to moderate left pleural effusions. Dependent bibasilar opacities favor compressive atelectasis. There is no pneumatosis or pneumoperitoneum. There are a few scattered calcified granulomata noted within the spleen. Moderately atrophy pancreas. Unremarkable adrenal glands. The bladder wall thickening with mild pericholecystic edema. Hyperdense material is noted within the gallbladder lumen. No biliary ductal dilation identified. Suboptimal evaluation of the solid abdominal organs secondary to arterial phase of imaging. 0.5 cm left hepatic lobe cyst. Cortical thinning of the kidneys. 4 mm nonobstructing calculus of the inferior pole right kidney. Hyperattenuating material within the superior pole right kidney. 3 mm nonobstructing calculus of the anterior interpolar left kidney on image 141. Mild nonspecific bilateral perinephric stranding. Cortical scarring of the bilateral kidneys. No ureteral calculi or hydronephrosis. Decompressed or bladder with wall thickening. Atherosclerosis of the abdominal aorta without aneurysm or dissection. High-grade stenosis at the origin of the left renal artery is again noted. High-grade stenosis involving the mid aspect of the superior mesenteric artery are on image 172 series 3 has progressed from the 2019 comparison. High-grade stenosis at the origin of the inferior mesenteric artery appears unchanged. No lymphadenopathy identified. Mild wall thickening of the duodenum. Trace abdominal pelvic ascites. No bowel obstruction. Mild colonic diverticulosis. The appendix is not definitively seen. Mild generalized body wall edema. Degenerative changes of the spine, pelvis and hips. Chronic nondisplaced left-sided rib fractures. IMPRESSION: 1. Limited exam secondary to arterial phase of imaging. 2. There is gallbladder wall thickening with pericholecystic edema. Hyperattenuating material within the gallbladder lumen is suggestive of vicarious excretion of contrast. Findings could be further evaluated with a right upper quadrant abdominal ultrasound. 3. Cardiomegaly with fluid overload manifested by right layering pleural effusions, equivocal pulmonary edema with trace ascites and mild body wall edema. 4. Mild wall thickening of the duodenum is likely reactive secondary to the associated gallbladder findings. A mild nonspecific duodenitis could appear similarly. 5. No bowel obstruction. 6. Nonobstructing bilateral nephrolithiasis. 7. 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 Chronic high-grade stenosis at the origin of the left renal and inferior mesenteric arteries is unchanged. ACT 112: Negative or not required by law. The above report was generated using voice recognition software. It may contain grammatical, syntax or spelling errors. Electronically signed by: Gabino Rosales M.D. 03/20/2022 10:53 AM PG Care Time/CCT Total # of Minutes Spent Total Time Spent with Patient: Total time spent is greater than 50% in coordination of care (as documented) at patient's floor/unit and/or counseling patient: Prolonged Care Time Prolonged Care Time: Yes 2 hours additional spent talking to specialists/coordinating transfer Coding Level of Care Code 88008 Subseq Hosp Care Lvl 3 (25 - SIGNIFICANT, SEPARATELY IDENTIFIABLE ) Diagnoses Sepsis A41.9 Cholecystitis K81.9 Transaminitis R74.01 Bacteremia R78.81 Acute UTI N39.0 Generalized weakness R53.1 Urinary tract infection N39.0 Systolic CHF I50.20 GERD (gastroesophageal reflux disease) K21.9 Anxiety F41.9 Permanent atrial fibrillation I48.21 Rheumatoid arthritis M05.79 Rheumatoid arthritis location: multiple sites Rheumatoid factor presence: with rheumatoid factor Prolonged QT interval R94.31 Weakness R53.1 Elevated troponin R77.8 Additional Codes Prolonged Care Time - Prolonged Care Time: Yes ([id number]) (1) Rheumatoid arthritis Rheumatoid arthritis location: multiple sites Rheumatoid factor presence: with rheumatoid factor Qualified Code(s): M05.79 - Rheumatoid arthritis with rheumatoid factor of multiple sites without organ or systems involvement
[2022-03-20] MEDS: SODIUM CHLORIDE 0.9% 1000ML 1,000 ML IV SCH (09:29)
[2022-03-20] MEDS ORDERED: OPTIRAY 350 100ml IV ONE (10:14)
--- NOTE | 2022-03-20 10:56 | CT Scan Report ---
ABDOMEN AND PELVIS CT WITH IV CONTRAST CT DOSE: 275.56 mGycm HISTORY: Acute weakness with elevated LFTs. weakness, acute elevation LFT TECHNIQUE: Multiaxial CT images of the abdomen and pelvis were performed following the IV administrat ion of 88 cc of Optiray, A dose lowering technique was utilized adhering to the principles of ALARA. COMPARISON STUDY: Chest CT 05/28/2021, CT abdomen and pelvis 06/02/2021 contrast CTA abdomen and pelvis with lower extremity runoff 06/19/2019. FINDINGS: Marked cardiomegaly with partially imaged pacer leads. Coronary artery calcifications. No p ericardial effusion. Small right with small to moderate left pleural effusions. Dependent bibasilar o pacities favor compressive atelectasis. There is no pneumatosis or pneumoperitoneum. There are a few scattered calcified granulomata noted within the spleen. Moderately atrophy pancreas. Unremarkable adrenal glands. The bladder wall thickening with mild pericholecystic edema. Hyperdense material is noted within the gallbladder lumen. No biliary ductal dilation identified. Suboptimal ev aluation of the solid abdominal organs secondary to arterial phase of imaging. 0.5 cm left hepatic lo be cyst. Cortical thinning of the kidneys. 4 mm nonobstructing calculus of the inferior pole right kidney. Hyp erattenuating material within the superior pole right kidney. 3 mm nonobstructing calculus of the ant erior interpolar left kidney on image 141. Mild nonspecific bilateral perinephric stranding. Cortical scarring of the bilateral kidneys. No ureteral calculi or hydronephrosis. Decompressed or bladder wi th wall thickening. Atherosclerosis of the abdominal aorta without aneurysm or dissection. High-grade stenosis at the origin of the left renal artery is again noted. High-grade stenosis involving the mi d aspect of the superior mesenteric artery are on image 172 series 3 has progressed from the 2020 com parison. High-grade stenosis at the origin of the inferior mesenteric artery appears unchanged. No ly mphadenopathy identified. Mild wall thickening of the duodenum. Trace abdominal pelvic ascites. No bowel obstruction. Mild colo martha diverticulosis. The appendix is not definitively seen. Mild generalized body wall edema. Degenera tive changes of the spine, pelvis and hips. Chronic nondisplaced left-sided rib fractures. IMPRESSION: 1. Limited exam secondary to arterial phase of imaging. 2. There is gallbladder wall thickening with pericholecystic edema. Hyperattenuating material within the gallbladder lumen is suggestive of vicarious excretion of contrast. Findings could be further vielka luated with a right upper quadrant abdominal ultrasound. 3. Cardiomegaly with fluid overload manifested by right layering pleural effusions, equivocal pulmona ry edema with trace ascites and mild body wall edema. 4. Mild wall thickening of the duodenum is likely reactive secondary to the associated gallbladder fi ndings. A mild nonspecific duodenitis could appear similarly. 5. No bowel obstruction. 6. Nonobstructing bilateral nephrolithiasis. 7. 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 Chronic high-grade stenosis at the origin of t he left renal and inferior mesenteric arteries is unchanged. ACT 112: Negative or not required by law. The above report was generated using voice recognition software. It may contain grammatical, syntax o r spelling errors. Electronically signed by: Gabino Rosales M.D. 03/20/2022 10:53 AM
[2022-03-20] MEDS ORDERED: PNEUMOCOCCAL POLYSACCHARIDES 25 MCG/0.5 ML VIAL/SYR IM ONE (11:00)
[2022-03-20] MEDS ORDERED: PIPERACILLIN/TAZOBACTAM 3.375 GM in DEXTROSE 5% 100 ML IV ONE (12:00)
[2022-03-20] MEDS ORDERED: SODIUM CHLORIDE 0.9% 1000ML 250 ML IV ONE (13:01)
[2022-03-20 14:56] LABS: A calco-baum cmplx NotReported Not Detected (NotDetected); Bact fragilis Not Reported Not Detected (NotDetected); C auris Not Reported Not Detected (NotDetected); CTX-M Resistant Gene Not Detected (NotDetected); Calbicans Not Reported Not Detected (NotDetected); Candida glabrata Not Reported Not Detected (NotDetected); Candida krusei Not Reported Not Detected (NotDetected); Cneoformans/gatti Not Reported Not Detected (NotDetected); Cparapsilosis Not Reported Not Detected (NotDetected); Ctropicalis Not Reported Not Detected (NotDetected); E cloacae compx Not Reported Not Detected (NotDetected); Efaecalis Not Reported Not Detected (NotDetected); Efaecium Not Reported Not Detected (NotDetected); Enterobacterales DETECTED (NotDetected); Enterobacterales Not Reported DETECTED (NotDetected); Escherichia coli Not Reported Not Detected (NotDetected); H influenzae Not Reported Not Detected (NotDetected); IMP Resistant Gene Not Detected (NotDetected); K aerogenes Not Reported Not Detected (NotDetected); KPC Resistant Gene Not Detected (NotDetected); Koxytoca Not Reported Not Detected (NotDetected); Kpneumoniae grp Not Reported Not Detected (NotDetected); Lmonocyt Not Reported Not Detected (NotDetected); N meningitidis Not Reported Not Detected (NotDetected); NDM Resistant Gene Not Detected (NotDetected); OXA 48 Like Resistant Gene Not Detected (NotDetected); P aeruginosa Not Reported Not Detected (NotDetected); Proteus spp Not Reported DETECTED (NotDetected); Salmonella spp Not Reported Not Detected (NotDetected); Smarcescens Not Reported Not Detected (NotDetected); Staph lugdunensis Not Reported Not Detected (NotDetected); Staph spp. Not Reported Not Detected (NotDetected); Staphaureus Not Reported Not Detected (NotDetected); Staphepi Not Reported Not Detected (NotDetected); Stenmaltophilia Not Reported Not Detected (NotDetected); Strep agal(GrpB) Not Reported Not Detected (NotDetected); Strep pneum Not Reported Not Detected (NotDetected); Strep pyog (GrpA) Not Reported Not Detected (NotDetected); Strep spp Not Reported Not Detected (NotDetected); VIM Resistant Gene Not Detected (NotDetected)
[2022-03-20 15:33] LABS: Proteus species DETECTED (NotDetected)
--- NOTE | 2022-03-20 15:35 | Ultrasound Report ---
ABDOMINAL ULTRASOUND, RIGHT UPPER QUADRANT HISTORY: Abnormal CT. weakness, elevated LFT, eval acute thierry. COMPARISON: Abdomen and pelvis CT 03/20/2022. FINDINGS: Pancreas: The pancreatic head and tail are obscured by overlying bowel gas. The remaining portions of the pancreas are within normal limits. Liver: A 16 mm septated cyst seen within the left hepatic lobe. Normal in size measuring 14 cm in [facility]. Gallbladder: Diffuse gallbladder wall edema most pronounced at the hepatic surface. Negative sonograp hic Thomson sign. No gallstones. Therefore, this favors gallbladder edema related to the patient's farhana matous state. CBD: 4 mm. Right kidney: No hydronephrosis. IMPRESSION: 1. Diffuse gallbladder edema most pronounced at the hepatic surface. No gallstones. Therefore, this i s likely secondary to the patient's edematous state. 2. Normal caliber common bile duct. ACT 112: Negative or not required by law. Electronically signed by: Martinez Arreola M.D. 03/20/2022 3:33 PM
--- NOTE | 2022-03-20 16:24 | Critical Care Consultation ---
Date of Consultation March 20, 2022 Assessment & Plan (1) Bacteremia: 81-year-old female with generalized weakness who was found to have gram-negative bacteremia with concerns for possible biliary source. Requiring close hemodynamic monitoring given acuity of illness and possible need for urgent intervention. Patient presents with generalized weakness which initially was thought to be related to UTI. During assessment, the patient was noted to have transaminitis. CT scan concerning for possible gangrenous gallbladder. Patient is covered appropriately with antibiotics to this point. CT scan also demonstrates degree of volume overload. Agree with low rate of IV fluid this time as the patient is hemodynamically stable otherwise. Patient is noted to have transaminitis and certainly could be related to biliary ductal issue. Of note, the patient is persistently with an elevated lactate despite otherwise not appearing as clinically ill. I suspect that the patient's degree of acute hepatitis is contributing to elevated lactate level. Procalcitonin was within normal limits to this point. Remainder of work-up is otherwise unremarkable. We will continue to monitor the patient in the ICU. She does have a history of V. fib arrest with AICD placement. Patient is adamant that she is a DNR/DNI. I have personally spent 35 minutes of critical care time in the direct management of this patient. This is a life/limb threatening event. This includes time spent evaluating patient, direct bedside care, chart review, placing orders, interpretation of diagnostic studies, discussion with consultants, patient, and family members, as well as other required patient management activities. This time is exclusive of all separately billable procedures, and teaching time and separate from and in addition to any other critical care service time. (2) Cholecystitis: (3) Transaminitis: History of Present Illness Attending Physician: Yordy Godoy History of Present Illness Patient is an 81-year-old female with extensive past medical history including brain aneurysm, A. 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 Patient presented to the emergency department yesterday with complaints of generalized weakness. She was noted to have a UTI and elevated leukocytosis. She was started on Rocephin and admitted. During evaluation today, the patient was noted to have elevated LFTs. During assessment, there was concern for a gangrenous gallbladder. Additionally, the patient is bacteremic with gram- negative bacilli. There is concern for high-grade stenosis of the SMA as well. Patient was evaluated by general surgery who suggest transfer to tertiary care facility. Unfortunately, transport is limited secondary to weather. ICU requested for patient hold until transport can be set up. Upon assessment in the emergency department, the patient is awake, alert, and oriented. She is frail-appearing and reports that she feels weak. Otherwise, she offers no complaints of headaches, dizziness, lightheadedness, chest pain, palpitations, shortness of breath, pleuritic pain, nausea, vomiting, or abdominal discomfort. Allergies Allergy/AdvReac Type Severity Reaction Status Date / Time morphine AdvReac Intermediate NAUSEA Verified 03/19/22 20:31 Home Medications Medication Instructions Recorded Confirmed Type clopidogrel 75 mg tablet (Plavix) 75 mg PO QAM 05/23/21 03/19/22 History folic acid 1 mg tablet 1 mg PO DAILY 05/24/21 03/19/22 History amiodarone 200 mg tablet 200 mg PO DAILY #90 tabs 08/01/21 03/19/22 Rx lisinopril 10 mg tablet 10 mg PO DAILY #90 tabs 08/01/21 03/19/22 Rx rosuvastatin 5 mg tablet 5 mg PO QAM #90 tabs 09/04/21 03/19/22 Rx metoprolol succinate 100 mg 150 mg PO DAILY #120 tabs 10/18/21 03/19/22 Rx tablet,extended release 24 hr spironolactone 25 mg tablet 25 mg PO DAILY #90 tabs 12/07/21 03/19/22 Rx apixaban 2.5 mg tablet 2.5 mg PO BID #180 tabs 01/19/22 03/19/22 Rx prednisone 1 mg tablet See Rx Instructions .Route 01/26/22 03/19/22 Rx .COMPLEX #300 tabs methotrexate sodium 2.5 mg tablet See Rx Instructions .Route 02/19/22 03/19/22 Rx .COMPLEX #45 tabs lorazepam 0.5 mg tablet 0.5 mg PO HS PRN anxiety #30 tabs 03/12/22 03/19/22 Rx Patient History Medical History Atrial fibrillation Atrial fibrillation with RVR Brain aneurysm under surveillance by PCP (stable x years) Bronchitis (~03/23/19) Chronic steroid use GERD (gastroesophageal reflux disease) Hyperlipidemia Hypertension Kidney stones Osteoporosis, unspecified PAD (peripheral artery disease) Pneumonia Rheumatoid arthritis Systolic CHF Surgical History H/O foot surgery History of implantable cardiac defibrillator (ICD) History of lithotripsy History of thoracotomy FOR COLLAPSED LUNG - HAD WEDGE RESECTION LOWER RIGHT Hx of cataract extraction Family History Mother Arthritis Father Congestive heart failure (CHF) Aunt Breast cancer Sister Stroke Other Thoracic aortic aneurysm Denies family history of Ovarian cancer Prostate cancer Diabetes Myocardial infarction Lung cancer Colorectal cancer Social History Smoking Status: Former smoker Age Started Using Tobacco: 16; Age Quit Using Tobacco: 45; packs per day: 0.5; Second Hand Exposure: No; Hx Alcohol Use: No Hx Substance Use: No Preferred Language: Macedonian Communication Ability: Effective Visual Impairment: Limited Hearing Ability: Normal Print Producer Required: No Beliefs That Will Affect Care: None marital status: / Current Living Situation: Alone current occupational status: retired How many Children do You have: 5 Feels Safe at Home: Yes Childhood Exposure to Second-Hand Smoke: Yes (dad did off and on ) caffeine: Yes (coffee) Dental Care, Regularly: No Physical Activity Frequency: Daily Physical Activity Frequency Comment: walks daily Seatbelt Use: always Sunscreen Use: Yes Assistive Devices: Cane Review of Systems Review of Systems: A complete 10 point review of systems was reviewed with the patient with pertinent positives and negatives as per history of present illness. All else were negative. Physical Exam Physical Exam: VITAL SIGNS - Vital signs and nursing notes were reviewed. GENERAL - 81-year-old female appearing her stated age who is in no acute distress. Communicates well with provider and answers questions appropriately. HEAD - NC/AT. EYES - PERRL with EOMI bilaterally. Sclera anicteric. EARS - No deformities of external structures noted on gross examination bilaterally. NOSE - Midline and without cyanosis. No epistaxis or purulent drainage noted. MOUTH/OROPHARYNX - Without perioral cyanosis. Buccal mucosa pink and moist. NECK - Neck with FROM. Supple to palpation. No nuchal rigidity. LUNGS - Chest wall symmetric without accessory muscle use, intercostals retractions, or central cyanosis. Normal vesicular breath sounds CTA B/L. No wheezes, rales, or rhonchi appreciated. CARDIAC - RRR with S1/S2. No murmur, rubs, or gallops appreciated. ABDOMEN - Abdominal contour flat without pulsations or visible masses. Negative [place]'s or Puentes Swan's Signs. BS normoactive all four quadrants. No tenderness to palpation appreciated throughout. No palpable masses, hepatosplenomegaly, or ascites noted. EXTREMITIES - No clubbing or peripheral cyanosis. No pretibial edema present. +2/5 radial pulses palpated throughout. +5/5 strength noted in UE/LE bilaterally. NEUROLOGIC - Cranial nerves II through XII grossly intact. Sensory intact to light touch throughout. PSYCH - A&Ox3 and cooperates fully with examiner. Pt is very pleasant and interacts well with examiner. Coding Level of Care Code Critical Care 1st 30-74 mins Diagnoses Bacteremia R78.81 Cholecystitis K81.9 Transaminitis R74.01 Time Spent (min) 35
--- NOTE | 2022-03-20 16:34 | Electrocardiogram Report ---
Test Reason : Blood Pressure : / mmHG Vent. Rate : 109 BPM Atrial Rate : 102 BPM P-R Int : 000 ms QRS Dur : 088 ms QT Int : 388 ms P-R-T Axes : 000 028 097 degrees QTc Int : 522 ms Atrial fibrillation with rapid ventricular response Nonspecific ST and T wave abnormality Prolonged QT Abnormal ECG When compared with ECG of 25-MAY-2021 21:28, Non-specific change in ST segment in Inferior leads ST now depressed in Lateral leads Nonspecific T wave abnormality no longer evident in Inferior leads Nonspecific T wave abnormality no longer evident in Anterior leads Confirmed by Be Escalante ([id number]) on 03/20/2022 4:34:06 PM Referred By: REFERRED SELF Confirmed By:Be Escalante
[2022-03-20 18:04] LABS: INR 2.4 (0.9-1.1); Prothrombin Time 24.1 Seconds (9.0-12.0)
[2022-03-20] MEDS ORDERED: LORazepam 0.5 MG TAB PO PRN (18:16)
--- NOTE | 2022-03-20 18:30 | Surgery Consultation ---
Date of Consultation March 20, 2022 Assessment & Plan (1) Cholecystitis: pt is a 81 year-old female who presents to Er with one day history weakness, no abdominal pain, IMP: cholecystitis? base on H/P, U/S study, no gallstone, edema around liver and gallbladder, no indication for surgery for cholecystectomy now, no signs for acute cholecystitis, sign off today, please call with questions, Thanks, History of Present Illness Reason for Consultation: acute cholecystitis Requesting Physician: Julia Hernandez MD Attending Physician: Yordy Godoy History of Present Illness CC: weakness, This is an 81-year-old female with a history of osteoporosis, nephrolithiasis, permanent atrial fibrillation, GERD, COPD, HFrEF, cardiac arrest one year ago s/p AICD placement, rheumatoid arthritis with chronic steroid use, peripheral arterial disease who presented to [facility] for evaluation of weakness. He is accompanied by his son. Patient tells me that she was otherwise in her normal health up until this morning, where she began feeling very weak. She describes this as a generalized feeling of having no energy. She denies any rigors or night sweats. She denies any chest pain, palpitations, shortness of breath, cough, abdominal pain, nausea, vomiting, urinary symptoms (although does report voiding a little more frequently than usual today, but is also been try to drink more water), or changes with bowel movements.She has been taking her medications as prescribed. She does tell me thatShe was recently treated for a flare of her RA, but this just consisted of taking a few more prednisone each day. She feels that her pain is well under control. Of note, her son recently tested positive for COVID, but had no extensive contact with him. Did state that he dropped off groceries on Saturday. She has not had any respiratory symptoms. Medications reviewed and include amiodarone, Eliquis 2.5 mg twice daily, Plavix, lisinopril, lorazepam, methotrexate, metoprolol, prednisone, rosuvastatin, spironolactone. Last TTE in 11/2021 reveals reduced left ventricular systolic function with LVEF at 45 to 50%, mild to moderate aortic regurgitation, mild to moderate mitral regurgitation. In the ED, patient was found to be hypertensive to 155/100 with tachycardia to 106. Weight today 52.2 kg from 50.8 on 01/23. She was saturating 93% on room air.Admission labs revealing of white count of 12 with left shift, hemoglobin 10.4 (baseline 10.1) anion gap 12, total bilirubin 1.2, alkaline phosphatase 125, high-sensitivity troponin 36.4. Urine revealing cloudy appearance with 2+ protein, 2+ blood, 2+ leuk esterase in the setting of over 30 WBCs and RBCs and 4+ urine bacteria.Her chest x-ray demonstrated cardiovascular with pulmonary vascular congestion as well as trace pleural effusions. ECG demonstrating AFib with RVR and prolonged QTc at [address] depressions. She was given IV fluid. I ( Mg Rizzo MD ) got a call for consult acute cholecystitis, I reviewed pt's H/P, labs CT can with pt, pt denies abdominal pain, ---- This documentation was created utilizing dictation software. As such, syntax, grammatical, and word-choice errors may be present. Notes are screened prior to submission in an attempt to reduce these errors. If there are any questions or concerns, please contact the author directly for clarification. Allergies Allergy/AdvReac Type Severity Reaction Status Date / Time morphine AdvReac Intermediate NAUSEA Verified 03/19/22 20:31 Home Medications Medication Instructions Recorded Confirmed Type clopidogrel 75 mg tablet (Plavix) 75 mg PO QAM 05/23/21 History folic acid 1 mg tablet 1 mg PO DAILY 05/24/21 03/19/22 History amiodarone 200 mg tablet 200 mg PO DAILY #90 tabs 08/01/21 03/19/22 R x lisinopril 10 mg tablet 10 mg PO DAILY #90 tabs 08/01/21 03/19/22 Rx rosuvastatin 5 mg tablet 5 mg PO QAM #90 tabs 09/04/21 03/19/22 Rx metoprolol succinate 100 mg 150 mg PO DAILY #120 tabs 10/18/21 Rx tablet,extended release 24 hr spironolactone 25 mg tablet 25 mg PO DAILY #90 tabs 12/07/21 03/19/22 Rx apixaban 2.5 mg tablet 2.5 mg PO BID #180 tabs 01/19/22 03/19/22 Rx prednisone 1 mg tablet See Rx Instructions .Route 01/26/2209/03 Rx .COMPLEX #300 tabs methotrexate sodium 2.5 mg tablet See Rx Instructions .Route 02/19/22 03/19/22 Rx .COMPLEX #45 tabs lorazepam 0.5 mg tablet 0.5 mg PO HS PRN anxiety #30 tabs 03/12/22 Rx Past Med/Surg History Medical History Atrial fibrillation Atrial fibrillation with RVR Brain aneurysm under surveillance by PCP (stable x years)Bronchitis (~03/23/19) Chronic steroid use GERD (gastroesophageal reflux disease) Hyperlipidemia Hypertension Kidney stones Osteoporosis, unspecified PAD (peripheral artery disease) Pneumonia Rheumatoid arthritis Systolic CHF Surgical History H/O foot surgery History of implantable cardiac defibrillator (ICD) History of lithotripsy History of thoracotomy FOR COLLAPSED LUNG - HAD WEDGE RESECTION LOWER RIGHTHx of cataract extraction Family History Mother ArthritisFather Congestive heart failure (CHF)Aunt Breast cancerSister StrokeOther Thoracic aortic aneurysm Denies family history of Ovarian cancer Prostate cancer Diabetes Myocardial infarction Lung cancer Colorectal cancer Social History Smoking Status: Unknown if ever smoked Age Started Using Tobacco: 16; Age Quit Using Tobacco: 45; packs per day: 0.5; Second Hand Exposure: No; Hx Alcohol Use: No Hx Substance Use: No Preferred Language: Chinese Communication Ability: Effective Visual Impairment: Limited Hearing Ability: Normal 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 Beliefs That Will Affect Care: None marital status: / Current Living Situation: Alone current occupational status: retired How many Children do You have: 5 Feels Safe at Home: Yes Childhood Exposure to Second-Hand Smoke: Yes (dad did off and on ) caffeine: Yes (coffee) Dental Care, Regularly: No Physical Activity Frequency: Daily Physical Activity Frequency Comment: walks daily Seatbelt Use: always Sunscreen Use: Yes Assistive Devices: Walker Review of Systems Review of Systems: as per HPI Allergies Allergy/AdvReac Type Severity Reaction Status Date / Time morphine AdvReac Intermediate NAUSEA Verified 03/19/22 20:31 Home Medications Medication Instructions Recorded Confirmed Type clopidogrel 75 mg tablet (Plavix) 75 mg PO QAM 05/23/21 03/19/22 History folic acid 1 mg tablet 1 mg PO DAILY 05/24/21 03/19/22 History amiodarone 200 mg tablet 200 mg PO DAILY #90 tabs 08/01/21 03/19/22 Rx lisinopril 10 mg tablet 10 mg PO DAILY #90 tabs 08/01/21 03/19/22 Rx rosuvastatin 5 mg tablet 5 mg PO QAM #90 tabs 09/04/21 03/19/22 Rx metoprolol succinate 100 mg 150 mg PO DAILY #120 tabs 10/18/21 03/19/22 Rx tablet,extended release 24 hr spironolactone 25 mg tablet 25 mg PO DAILY #90 tabs 12/07/21 03/19/22 Rx apixaban 2.5 mg tablet 2.5 mg PO BID #180 tabs 01/19/22 03/19/22 Rx prednisone 1 mg tablet See Rx Instructions .Route 01/26/22 03/19/22 Rx .COMPLEX #300 tabs methotrexate sodium 2.5 mg tablet See Rx Instructions .Route 02/19/22 03/19/22 Rx .COMPLEX #45 tabs lorazepam 0.5 mg tablet 0.5 mg PO HS PRN anxiety #30 tabs 03/12/22 03/19/22 Rx Patient History Medical History Atrial fibrillation Atrial fibrillation with RVR Brain aneurysm under surveillance by PCP (stable x years) Bronchitis (~03/23/19) Chronic steroid use GERD (gastroesophageal reflux disease) Hyperlipidemia Hypertension Kidney stones Osteoporosis, unspecified PAD (peripheral artery disease) Pneumonia Rheumatoid arthritis Systolic CHF Surgical History H/O foot surgery History of implantable cardiac defibrillator (ICD) History of lithotripsy History of thoracotomy FOR COLLAPSED LUNG - HAD WEDGE RESECTION LOWER RIGHT Hx of cataract extraction Family History Mother Arthritis Father Congestive heart failure (CHF) Aunt Breast cancer Sister Stroke Other Thoracic aortic aneurysm Denies family history of Ovarian cancer Prostate cancer Diabetes Myocardial infarction Lung cancer Colorectal cancer Social History Smoking Status: Former smoker Age Started Using Tobacco: 16; Age Quit Using Tobacco: 45; packs per day: 0.5; Second Hand Exposure: No; Hx Alcohol Use: No Hx Substance Use: No Preferred Language: Chinese Communication Ability: Effective Visual Impairment: Limited Hearing Ability: Normal 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 Beliefs That Will Affect Care: None marital status: / Current Living Situation: Alone current occupational status: retired How many Children do You have: 5 Feels Safe at Home: Yes Childhood Exposure to Second-Hand Smoke: Yes (dad did off and on ) caffeine: Yes (coffee) Dental Care, Regularly: No Physical Activity Frequency: Daily Physical Activity Frequency Comment: walks daily Seatbelt Use: always Sunscreen Use: Yes Assistive Devices: Cane Physical Exam Constitutional: WD/WN, vitals as above no distress Eyes: PERRL, conjunctivae normal, anicteric sclerae Neck: trachea midline, no thyromegaly Respiratory: normal respiratory effort, lungs clear to auscultation Cardiovascular: RRR, no murmur, no edema Gastrointestinal (Abdomen): soft, NT, ND, BS +, Musculoskeletal: no cyanosis or clubbing, extremities motor strength 5/5 Neurologic: patellar DTR's 2+ bilat, sensation intact Psychiatric: A+Ox3, euthymic affect Results & Data ([facility]) Laboratory Results Abnormal lab results 03/19/22 03/19/22 03/19/22 Range/Units 18:39 18:39 18:39 WBC 11.99 H (4.8-10.8) K/ul RBC 3.91 L (3.93-5.22) M/uL Hgb 10.4 L (12.0-16.0) g/dl Hct 34.0 L (34.1-44.9) % MCHC 30.6 L (32.0-36.0) g/dL RDW Std Deviation 58.6 H (36.4-46.3) fL RDW Coeff of Libra 18.8 H (11.5-14.5) % MPV 9.2 L (9.4-12.3) fL Neut # (Auto) 9.61 H (1.4-6.5) K/uL Davidson # (Auto) 0.89 H (0.24-0.82) K/uL Immature Gran # (Auto) 0.09 H (0.00-0.02) K/uL Absolute Nucleated RBC 0.02 H (0-0) K/uL PT (9.0-12.0) Seconds INR (0.9-1.1) Anion Gap 12 H (3-11) BUN (6-23) mg/dl BUN/Creatinine Ratio 20.4 H (10-20) Glucose 122 H (70-99(Fasting)) mg/dl Lactate (0.4-2.0) mmol/L Magnesium (1.7-2.4) mg/dl Total Bilirubin 1.2 H (0.2-1.0) mg/dl AST (13-39) U/L ALT (7-52) U/L Alkaline Phosphatase 125 H (34-104) U/L Troponin I High Sens 36.4 H (0-14) pg/ml C-Reactive Protein 7.97 H (0-0.5) mg/dl Albumin (3.4-5.0) gm/dl Urine Appearance (Clear) Urine Protein (Negative) Urine Ketones (Negative) Urine Blood (Negative) Ur Leukocyte Esterase (Negative) Urine WBC (Auto) (0-5) /hpf Urine RBC (Auto) (0-4) /hpf Urine Bacteria (Auto) (Negative) Enterobacterales (PCR) (NotDetected) Proteus species (PCR) (NotDetected) 03/19/22 03/19/22 03/19/22 Range/Units 20:06 22:52 22:52 WBC (4.8-10.8) K/ul RBC (3.93-5.22) M/uL Hgb (12.0-16.0) g/dl Hct (34.1-44.9) % MCHC (32.0-36.0) g/dL RDW Std Deviation (36.4-46.3) fL RDW Coeff of Libra (11.5-14.5) % MPV (9.4-12.3) fL Neut # (Auto) (1.4-6.5) K/uL Davidson # (Auto) (0.24-0.82) K/uL Immature Gran # (Auto) (0.00-0.02) K/uL Absolute Nucleated RBC (0-0) K/uL PT (9.0-12.0) Seconds INR (0.9-1.1) Anion Gap (3-11) BUN (6-23) mg/dl BUN/Creatinine Ratio (10-20) Glucose (70-99(Fasting)) mg/dl Lactate (0.4-2.0) mmol/L Magnesium (1.7-2.4) mg/dl Total Bilirubin (0.2-1.0) mg/dl AST (13-39) U/L ALT (7-52) U/L Alkaline Phosphatase (34-104) U/L Troponin I High Sens 52.3 H* D (0-14) pg/ml C-Reactive Protein (0-0.5) mg/dl Albumin (3.4-5.0) gm/dl Urine Appearance Cloudy A (Clear) Urine Protein 2+ H (Negative) Urine Ketones 1+ H (Negative) Urine Blood 2+ H (Negative) Ur Leukocyte Esterase 2+ H (Negative) Urine WBC (Auto) >30 H (0-5) /hpf Urine RBC (Auto) >30 H (0-4) /hpf Urine Bacteria (Auto) 4+ H (Negative) Enterobacterales (PCR) DETECTED A (NotDetected) Proteus species (PCR) DETECTED A (NotDetected) 03/20/22 03/20/22 03/20/22 Range/Units 06:43 06:43 06:43 WBC 13.81 H (4.8-10.8) K/ul RBC (3.93-5.22) M/uL Hgb 10.6 L (12.0-16.0) g/dl Hct (34.1-44.9) % MCHC 29.8 L (32.0-36.0) g/dL RDW Std Deviation 61.7 H (36.4-46.3) fL RDW Coeff of Libra 19.0 H (11.5-14.5) % MPV 9.2 L (9.4-12.3) fL Neut # (Auto) 10.45 H (1.4-6.5) K/uL Davidson # (Auto) 1.11 H (0.24-0.82) K/uL Immature Gran # (Auto) 0.12 H (0.00-0.02) K/uL Absolute Nucleated RBC 0.02 H (0-0) K/uL PT (9.0-12.0) Seconds INR (0.9-1.1) Anion Gap 14 H (3-11) BUN 26 H (6-23) mg/dl BUN/Creatinine Ratio 23.6 H (10-20) Glucose 169 H (70-99(Fasting)) mg/dl Lactate (0.4-2.0) mmol/L Magnesium 2.6 H (1.7-2.4) mg/dl Total Bilirubin 1.1 H (0.2-1.0) mg/dl AST 662 H (13-39) U/L ALT 317 H (7-52) U/L Alkaline Phosphatase 126 H (34-104) U/L Troponin I High Sens 59.4 H* (0-14) pg/ml C-Reactive Protein (0-0.5) mg/dl Albumin 3.3 L (3.4-5.0) gm/dl Urine Appearance (Clear) Urine Protein (Negative) Urine Ketones (Negative) Urine Blood (Negative) Ur Leukocyte Esterase (Negative) Urine WBC (Auto) (0-5) /hpf Urine RBC (Auto) (0-4) /hpf Urine Bacteria (Auto) (Negative) Enterobacterales (PCR) (NotDetected) Proteus species (PCR) (NotDetected) 03/20/22 03/20/22 03/20/22 Range/Units 11:33 11:33 14:29 WBC (4.8-10.8) K/ul RBC (3.93-5.22) M/uL Hgb (12.0-16.0) g/dl Hct (34.1-44.9) % MCHC (32.0-36.0) g/dL RDW Std Deviation (36.4-46.3) fL RDW Coeff of Libra (11.5-14.5) % MPV (9.4-12.3) fL Neut # (Auto) (1.4-6.5) K/uL Davidson # (Auto) (0.24-0.82) K/uL Immature Gran # (Auto) (0.00-0.02) K/uL Absolute Nucleated RBC (0-0) K/uL PT (9.0-12.0) Seconds INR (0.9-1.1) Anion Gap (3-11) BUN (6-23) mg/dl BUN/Creatinine Ratio (10-20) Glucose (70-99(Fasting)) mg/dl Lactate 10.4 H* 9.9 H* (0.4-2.0) mmol/L Magnesium (1.7-2.4) mg/dl Total Bilirubin (0.2-1.0) mg/dl AST (13-39) U/L ALT (7-52) U/L Alkaline Phosphatase (34-104) U/L Troponin I High Sens 59.1 H* (0-14) pg/ml C-Reactive Protein (0-0.5) mg/dl Albumin (3.4-5.0) gm/dl Urine Appearance (Clear) Urine Protein (Negative) Urine Ketones (Negative) Urine Blood (Negative) Ur Leukocyte Esterase (Negative) Urine WBC (Auto) (0-5) /hpf Urine RBC (Auto) (0-4) /hpf Urine Bacteria (Auto) (Negative) Enterobacterales (PCR) (NotDetected) Proteus species (PCR) (NotDetected) 03/20/22 Range/Units 17:32 WBC (4.8-10.8) K/ul RBC (3.93-5.22) M/uL Hgb (12.0-16.0) g/dl Hct (34.1-44.9) % MCHC (32.0-36.0) g/dL RDW Std Deviation (36.4-46.3) fL RDW Coeff of Libra (11.5-14.5) % MPV (9.4-12.3) fL Neut # (Auto) (1.4-6.5) K/uL Davidson # (Auto) (0.24-0.82) K/uL Immature Gran # (Auto) (0.00-0.02) K/uL Absolute Nucleated RBC (0-0) K/uL PT 24.1 H (9.0-12.0) Seconds INR 2.4 H (0.9-1.1) Anion Gap (3-11) BUN (6-23) mg/dl BUN/Creatinine Ratio (10-20) Glucose (70-99(Fasting)) mg/dl Lactate (0.4-2.0) mmol/L Magnesium (1.7-2.4) mg/dl Total Bilirubin (0.2-1.0) mg/dl AST (13-39) U/L ALT (7-52) U/L Alkaline Phosphatase (34-104) U/L Troponin I High Sens (0-14) pg/ml C-Reactive Protein (0-0.5) mg/dl Albumin (3.4-5.0) gm/dl Urine Appearance (Clear) Urine Protein (Negative) Urine Ketones (Negative) Urine Blood (Negative) Ur Leukocyte Esterase (Negative) Urine WBC (Auto) (0-5) /hpf Urine RBC (Auto) (0-4) /hpf Urine Bacteria (Auto) (Negative) Enterobacterales (PCR) (NotDetected) Proteus species (PCR) (NotDetected) Diagnostic Findings ABDOMINAL ULTRASOUND, RIGHT UPPER QUADRANT HISTORY: Abnormal CT. weakness, elevated LFT, eval acute thierry. COMPARISON: Abdomen and pelvis CT 03/20/2022. FINDINGS: Pancreas: The pancreatic head and tail are obscured by overlying bowel gas. The remaining portions of the pancreas are within normal limits. Liver: A 16 mm septated cyst seen within the left hepatic lobe. Normal in size measuring 14 cm in length. Gallbladder: Diffuse gallbladder wall edema most pronounced at the hepatic surface. Negative sonographic Thomson sign. No gallstones. Therefore, this favors gallbladder edema related to the patient's edematous state. CBD: 4 mm. Right kidney: No hydronephrosis. IMPRESSION: 1. Diffuse gallbladder edema most pronounced at the hepatic surface. No gallstones. Therefore, this is likely secondary to the patient's edematous state. 2. Normal caliber common bile duct. ABDOMEN AND PELVIS CT WITH IV CONTRAST CT DOSE: 275.56 mGycm HISTORY: Acute weakness with elevated LFTs. weakness, acute elevation LFT TECHNIQUE: Multiaxial CT images of the abdomen and pelvis were performed following the IV administration of 88 cc of Optiray, A dose lowering technique was utilized adhering to the principles of ALARA. COMPARISON STUDY: Chest CT 05/28/2021, CT abdomen and pelvis 06/02/2021 contrast CTA abdomen and pelvis with lower extremity runoff 06/19/2019. FINDINGS: Marked cardiomegaly with partially imaged pacer leads. Coronary artery calcifications. No pericardial effusion. Small right with small to moderate left pleural effusions. Dependent bibasilar opacities favor compressive atelectasis. There is no pneumatosis or pneumoperitoneum. There are a few scattered calcified granulomata noted within the spleen. Moderately atrophy pancreas. Unremarkable adrenal glands. The bladder wall thickening with mild pericholecystic edema. Hyperdense material is noted within the gallbladder lumen. No biliary ductal dilation identified. Suboptimal evaluation of the solid abdominal organs secondary to arterial phase of imaging. 0.5 cm left hepatic lobe cyst. Cortical thinning of the kidneys. 4 mm nonobstructing calculus of the inferior pole right kidney. Hyperattenuating material within the superior pole right kidney. 3 mm nonobstructing calculus of the anterior interpolar left kidney on image 141. Mild nonspecific bilateral perinephric stranding. Cortical scarring of the bilateral kidneys. No ureteral calculi or hydronephrosis. Decompressed or bladder with wall thickening. Atherosclerosis of the abdominal aorta without aneurysm or dissection. High-grade stenosis at the origin of the left renal artery is again noted. High-grade stenosis involving the mid aspect of the superior mesenteric artery are on image 172 series 3 has progressed from the 2020 comparison. High-grade stenosis at the origin of the inferior mesenteric artery appears unchanged. No lymphadenopathy identified. Mild wall thickening of the duodenum. Trace abdominal pelvic ascites. No bowel obstruction. Mild colonic diverticulosis. The appendix is not definitively seen. Mild generalized body wall edema. Degenerative changes of the spine, pelvis and hips. Chronic nondisplaced left-sided rib fractures. IMPRESSION: 1. Limited exam secondary to arterial phase of imaging. 2. There is gallbladder wall thickening with pericholecystic edema. Hyperattenuating material within the gallbladder lumen is suggestive of vica rious excretion of contrast. Findings could be further evaluated with a right upper quadrant abdominal ultrasound. 3. Cardiomegaly with fluid overload manifested by right layering pleural effusions, equivocal pulmonary edema with trace ascites and mild body wall edema. 4. Mild wall thickening of the duodenum is likely reactive secondary to the associated gallbladder findings. A mild nonspecific duodenitis could appear similarly. 5. No bowel obstruction. 6. Nonobstructing bilateral nephrolithiasis. 7. 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 Chronic high-grade stenosis at the origin of the left renal and inferior mesenteric arteries is unchanged. ACT 112: Negative or not required by law.
[2022-03-20] MEDS: PIPERACILLIN/TAZOBACTAM 3.375 GM in DEXTROSE 5% 100 ML IV SCH (18:39)
[2022-03-20] MEDS: PANTOprazole 40 MG in SYRINGE 0 ML IV SCH (20:51)
[2022-03-20] MEDS ORDERED: cefTRIAXone SODIUM 1,000 MG in DEXTROSE 5% AD-VAN 50 ML IV SCH (21:00)
--- NOTE | 2022-03-20 23:59 | Billing Data ---
Date of Service March 20, 2022 Coding Level of Care Code 82958 Initial Inpt Care Lvl 3
[2022-03-21] MEDS: PIPERACILLIN/TAZOBACTAM 3.375 GM in DEXTROSE 5% 100 ML IV SCH (01:34)
[2022-03-21] MEDS: SODIUM CHLORIDE 0.9% 1000ML 1,000 ML IV SCH (05:02)
[2022-03-21 06:56] LABS: Albumin Globulin Ratio 1.1 (0.9-2); Albumin Level 3.1 gm/dl (3.4-5.0); Alkaline Phosphatase 137 U/L (34-104); Anion Gap 16 (3-11); BUN Creatinine Ratio 27.5 (10-20); Bilirubin,Total 2.6 mg/dl (0.2-1.0); Blood Urea Nitrogen 36 mg/dl (6-23); Calcium 8.5 mg/dl (8.5-10.1); Carbon Dioxide 18 mmol/L (21-32); Chloride 105 mmol/L (98-107); Creatinine Clr Calc Pharmacy 26.6 ml/min; Est GFR (African American) 44.1 ml/min; Est GFR (Non-African American) 38.1 ml/min; Globulin 2.8 gm/dl (2.5-4.0); Glucose 118 mg/dl (70-99(Fasting)); Magnesium 2.5 mg/dl (1.7-2.4); Potassium 4.6 mmol/L (3.5-5.1); Sodium 139 mmol/L (136-145); Total Protein 5.9 gm/dl (6.0-8.3)
[2022-03-21 07:05] LABS: Hematocrit (blood only) 36.4 % (34.1-44.9); Hemoglobin 10.9 g/dl (12.0-16.0); Mean Corpuscular Hemoglobin 26.9 pg (25.0-34.0); Mean Corpuscular Hgb Conc 29.9 g/dL (32.0-36.0); Mean Corpuscular Volume 89.9 fL (80.0-100.0); Mean Platelet Volume 9.7 fL (9.4-12.3); Nucleated RBC # (auto) 0.08 K/uL (0-0); Nucleated RBC % (auto) 0.4 %; Platelet Count 292 K/uL (130-400); RDW Coefficient of Variation 19.5 % (11.5-14.5); RDW Standard Deviation 62.9 fL (36.4-46.3); Red Blood Count 4.05 M/uL (3.93-5.22); White Blood Count 19.34 K/ul (4.8-10.8)
[2022-03-21 07:18] LABS: Alanine Aminotransferase > 2500 U/L (7-52); Aspartate Aminotransferase 7176 U/L (13-39)
--- NOTE | 2022-03-21 07:38 | Discharge Summary ---
Date of Service date of admission - March 19, 2022 date of discharge - March 21, 2022 Admission HPI Per Admitting Provider This is an 81-year-old female with a history of osteoporosis, nephrolithiasis, permanent atrial fibrillation, GERD, COPD, HFrEF, cardiac arrest one year ago s/p AICD placement, rheumatoid arthritis with chronic steroid use, peripheral arterial disease who presented to [facility] for evaluation of weakness. He is accompanied by his son. Patient tells me that she was otherwise in her normal health up until this morning, where she began feeling very weak. She describes this as a generalized feeling of having no energy. She denies any rigors or night sweats. She denies any chest pain, palpitations, shortness of breath, cough, abdominal pain, nausea, vomiting, urinary symptoms (although does report voiding a little more frequently than usual today, but is also been try to drink more water), or changes with bowel movements.She has been taking her medications as prescribed. She does tell me thatShe was recently treated for a flare of her RA, but this just consisted of taking a few more prednisone each day. She feels that her pain is well under control. Of note, her son recently tested positive for COVID, but had no extensive contact with him. Did state that he dropped off groceries on Saturday. She has not had any respiratory symptoms. Medications reviewed and include amiodarone, Eliquis 2.5 mg twice daily, Plavix, lisinopril, lorazepam, methotrexate, metoprolol, prednisone, rosuvastatin, spironolactone. Last TTE in 11/2021 reveals reduced left ventricular systolic function with LVEF at 45 to 50%, mild to moderate aortic regurgitation, mild to moderate mitral regurgitation. In the ED, patient was found to be hypertensive to 155/100 with tachycardia to 106. Weight today 52.2 kg from 50.8 on 01/23. She was saturating 93% on room air.Admission labs revealing of white count of 12 with left shift, hemoglobin 10.4 (baseline 10.1) anion gap 12, total bilirubin 1.2, alkaline phosphatase 125, high-sensitivity troponin 36.4. Urine revealing cloudy appearance with 2+ protein, 2+ blood, 2+ leuk esterase in the setting of over 30 WBCs and RBCs and 4+ urine bacteria.Her chest x-ray demonstrated cardiovascular with pulmonary vascular congestion as well as trace pleural effusions. ECG demonstrating AFib with RVR and prolonged QTc at [address] depressions. She was given IV fluid. ---- This documentation was created utilizing dictation software. As such, syntax, grammatical, and word-choice errors may be present. Notes are screened prior to submission in an attempt to reduce these errors. If there are any questions or concerns, please contact the author directly for clarification. Principal Diagnosis 1. septicemia/bacteremia 2. acute liver injury/acute hepatitis 3. acute coagulopathy 2nd to #2 4. COVID-19 exposure 5. lactic acidosis 2nd to #1 and question #7 and/or #8 6. UTI 7. concern for acute acalculous cholecystitis 8. SMA stenosis 9. chronic systolic CHF 10. atrial fibrillation 11. steroid dependent rheumatoid arthritis 12. acute kidney injury 13. 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 Left subclavian pacer/AICD. Postoperative changes of the right lung apex. No pneumothorax. Pulmonary vascular congestion with trace pleural effusions. Mild subsegmental left basilar densities favoring atelectasis. Degenerative changes of the shoulders and spine. Sigmoidal thoracolumbar scoliosis. IMPRESSION: 1. Cardiomegaly with pulmonary vascular congestion. 2. Trace pleural effusions. ACT 112: Negative or not required by law. The above report was generated using voice recognition software. It may contain grammatical, syntax or spelling errors. Electronically signed by: Gabino Rosales M.D. 03/19/2022 6:21 PM Gallbladder Ultrasound 03/20/22 08:42 ABDOMINAL ULTRASOUND, RIGHT UPPER QUADRANT HISTORY: Abnormal CT. weakness, elevated LFT, eval acute thierry. COMPARISON: Abdomen and pelvis CT 03/20/2022. FINDINGS: Pancreas: The pancreatic head and tail are obscured by overlying bowel gas. The remaining portions of the pancreas are within normal limits. Liver: A 16 mm septated cyst seen within the left hepatic lobe. Normal in size measuring 14 cm in length. Gallbladder: Diffuse gallbladder wall edema most pronounced at the hepatic surface. Negative sonographic Thomson sign. No gallstones. Therefore, this favors gallbladder edema related to the patient's edematous state. CBD: 4 mm. Right kidney: No hydronephrosis. IMPRESSION: 1. Diffuse gallbladder edema most pronounced at the hepatic surface. No gallstones. Therefore, this is likely secondary to the patient's edematous state. 2. Normal caliber common bile duct. ACT 112: Negative or not required by law. Electronically signed by: Martinez Arreola M.D. 03/20/2022 3:33 PM Abdomen/Pelvis CT 03/20/22 08:[address] WITH IV CONTRAST CT DOSE: 275.56 mGycm HISTORY: Acute weakness with elevated LFTs. weakness, acute elevation LFT TECHNIQUE: Multiaxial CT images of the abdomen and pelvis were performed following the IV administration of 88 cc of Optiray, A dose lowering technique was utilized adhering to the principles of ALARA. COMPARISON STUDY: Chest CT 05/28/2021, CT abdomen and pelvis 06/02/2021 contrast CTA abdomen and pelvis with lower extremity runoff 06/19/2019. FINDINGS: Marked cardiomegaly with partially imaged pacer leads. Coronary artery calcifications. No pericardial effusion. Small right with small to moderate left pleural effusions. Dependent bibasilar opacities favor compressive atelectasis. There is no pneumatosis or pneumoperitoneum. There are a few scattered calcified granulomata noted within the spleen. Mode rately atrophy pancreas. Unremarkable adrenal glands. The bladder wall thickening with mild pericholecystic edema. Hyperdense material is noted within the gallbladder lumen. No biliary ductal dilation identified. Suboptimal evaluation of the solid abdominal organs secondary to arterial phase of imaging. 0.5 cm left hepatic lobe cyst. Cortical thinning of the kidneys. 4 mm nonobstructing calculus of the inferior pole right kidney. Hyperattenuating material within the superior pole right kidney. 3 mm nonobstructing calculus of the anterior interpolar left kidney on image 141. Mild nonspecific bilateral perinephric stranding. Cortical scarring of the bilateral kidneys. No ureteral calculi or hydronephrosis. Decompressed or bladder with wall thickening. Atherosclerosis of the abdominal aorta without aneurysm or dissection. High-grade stenosis at the origin of the left renal artery is again noted. High-grade stenosis involving the mid aspect of the superior mesenteric artery are on image 172 series 3 has progressed from the 2019 comparison. High-grade stenosis at the origin of the inferior mesenteric artery appears unchanged. No lymphadenopathy identified. Mild wall thickening of the duodenum. Trace abdominal pelvic ascites. No bowel obstruction. Mild colonic diverticulosis. The appendix is not definitively seen. Mild generalized body wall edema. Degenerative changes of the spine, pelvis and hips. Chronic nondisplaced left-sided rib fractures. IMPRESSION: 1. Limited exam secondary to arterial phase of imaging. 2. There is gallbladder wall thickening with pericholecystic edema. Hyperattenuating material within the gallbladder lumen is suggestive of vicarious excretion of contrast. Findings could be further evaluated with a right upper quadrant abdominal ultrasound. 3. Cardiomegaly with fluid overload manifested by right layering pleural effusions, equivocal pulmonary edema with trace ascites and mild body wall edema. 4. Mild wall thickening of the duodenum is likely reactive secondary to the associated gallbladder findings. A mild nonspecific duodenitis could appear similarly. 5. No bowel obstruction. 6. Nonobstructing bilateral nephrolithiasis. 7. 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 Chronic high-grade stenosis at the origin of the left renal and inferior mesenteric arteries is unchanged. ACT 112: Negative or not required by law. The above report was generated using voice recognition software. It may contain grammatical, syntax or spelling errors. Electronically signed by: Gabino Rosales M.D. 03/20/2022 10:53 AM Hospital Course (1) Septicemia due to Gram negative organism: The patient presented with severe weakness, fatigue, and possible UTI. She was initiated on IV antibiotics after blood cultures were obtained. On the AM of hospital day #2 her LFTs were noted to be markedly abnormal after they were normal at time of admission. INR was also elevated at that time consistent with coagulopathy due to her acute hepatitis/acute liver injury. CT abd/pelvis was obtained and this showed multiple findings including decompensated CHF, high-grade stenosis of her SMA, and gall bladder findings worrisome for acute acalculous cholecystitis. Antibiotics were broadened further. Lactate was checked and was found to be very high at about 10. She was transferred to the ICU for close observation. General surgery was consulted due to the abnormal gall bladder and SMA findings - they advised transfer to tertiary care center due to the complexity of her medical status and likely need for specialized services not available at [facility]. [facility] was contacted who graciously accepted Ms Welch in transfer for ongoing care. On hospital day #2 her blood cultures returned positive for gram negative rods. Urine culture was also growing gram negative rods. On the AM of hospital day #3, just prior to transfer to [facility], the patient's INR was even worse at 3.4, and ast/alt climbed into the thousands consistent with worsening acute liver injury/failure. Of note - the patient NEVER had hypotension/shock during her hospital stay. Amiodarone and statin therapy were held in the setting of her liver injury. The patient was transferred to [facility] on the AM of 03/21/22 with stable vital signs and stable respiratory status with normal O2 sats in room air. (2) Bacteremia: 2nd to gram negative truong - final identification pending. source - gall bladder vs urinary tract. To be determined once at [facility]. (3) Acute liver failure: Etiology? The rapid rise in her LFTs is suggestive of "shock" liver but she never had hypotension either at ER presentation or during her stay here. Consider acute hepatitis panel (hepA,B,etc) at [facility]. (4) Abnormal gall bladder diagnostic imaging: CT abdomen and RUQ u/s with question of acute acalculous cholecystitis. Findings could also be due to volume overloaded state as well. Final determination to be made at [facility]. (5) Lactic acidosis: severe, with lactate ranging 8-10 while here. (6) Coagulopathy: acute, with discharge INR of 3.4. (7) Acute kidney injury: baseline Cr 0.7-0.8 discharge Cr 1.3. 2nd to #1 above. (8) Urinary tract infection: 2nd to GNR. Final culture pending. (9) Chronic steroid use: 2nd to rheumatoid arthritis. 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 despite such she had no abdominal pain at any time. (11) Atrial fibrillation with rapid ventricular response: (12) Chronic obstructive pulmonary disease: (13) Hypertension: (14) Cardiomyopathy: chronic systolic CHF. EF 45-50% on echo 11/2021. decompensated based on imaging findings. (15) History of implantable cardiac defibrillator (ICD): no recent device discharges. (16) Exposure to COVID-19 virus: patient had a brief COVID exposure to a family member prior to this admission. COVID testing was negative while here. she was placed in airborne isolation as a precautionary measure during this brief hospitalization. Total Time Total Time Spent Total Time Spent (In Minutes): 20 Discharge Plan Discharge Items Patient Disposition: Transfer Acute Care Hospital Reason For Visit: generalized weakness Discharge Diagnosis: 1. septicemia 2. severe lactic acidosis 3. UTI 4. concern for gall bladder disease/cholecystitis 5. acute hepatitis 6. chronic systolic CHF 7. SMA stenosis - severe 8. coagulopathy 2nd to #5 9. COVID-19 exposure on 03/18/22 10. steroid-dependent rheumatoid arthritis Activity: As commented below Activity Comment: bedrest Non-emergency contact: Primary Care Provider Call non-emergency contact if: you have any medication questions Follow-up/Referrals: Rd Madden MD [Primary Care Provider] - Diet: Nothing by Mouth Addtl Attending Provider Instructions: Further instructions to follow after your hospital stay at [facility]. Pending Studies at Discharge: Yes Studies:: blood/urine cultures Stand-Alone Forms: My [facility] Skilled Items Patient informed of condition?: Yes DNR: Yes Discharge Level of Care: Other Communicable Disease: No Discharge Prognosis: Other Lines: Peripheral IV Urinary Catheter: Yes Medications and DC Order Prescriptions: Continued prednisone 1 mg tablet See Rx Instructions .ROUTE .COMPLEX Qty: 300 0RF Dose Instruction: TAKE 3 TABLETS BY MOUTH DAILY AND UP TO 5 TABLETS PER DAY NEEDED Rx Instructions: TAKE 3 TABLETS BY MOUTH DAILY AND UP TO 5 TABLETS PER DAY NEEDED lorazepam 0.5 mg tablet 0.5 mg PO HS PRN (Reason: anxiety) Qty: 30 0RF metoprolol succinate 100 mg tablet extended release 24 hr 150 mg PO DAILY Qty: 120 3RF amiodarone 200 mg tablet 200 mg PO DAILY Qty: 90 3RF folic acid 1 mg tablet 1 mg PO DAILY Discontinued rosuvastatin 5 mg tablet 5 mg PO QAM Qty: 90 3RF spironolactone 25 mg tablet 25 mg PO DAILY Qty: 90 3RF apixaban 2.5 mg tablet 2.5 mg PO BID Qty: 180 3RF methotrexate sodium 2.5 mg tablet See Rx Instructions .ROUTE .COMPLEX Qty: 45 0RF Dose Instruction: take 4 tablets by mouth every Saturday Rx Instructions: take 4 tablets by mouth every Saturday lisinopril 10 mg tablet 10 mg PO DAILY Qty: 90 3RF clopidogrel [Plavix] 75 mg tablet 75 mg PO QAM Discharge Orders: Discharge Order (Routine); Ordered 03/21/22 Ordered By: Yordy Godoy Admission Data Admit Date/Time: 03/20/22 18:14 Attending Provider: Yordy Godoy Admit Provider: Geraldo Zurita Primary Care Provider: Rd Madden Other Providers: Sam Lomax ; Mg Rizzo ; Nahid Giraldo Coding Level of Care Code D/C DAY MANAGEMENT <30 MINS Diagnoses Septicemia due to Gram negative organism A41.50 Bacteremia R78.81 Acute liver failure K72.00 Abnormal gall bladder diagnostic imaging R93.2 Lactic acidosis E87.20 Coagulopathy D68.9 Acute kidney injury N17.9 Urinary tract infection N39.0 Hematuria presence: without hematuria Urinary tract infection type: site unspecified Chronic steroid use Superior mesenteric artery stenosis K55.1 Atrial fibrillation with rapid ventricular response I48.91 Chronic obstructive pulmonary disease J44.9 Hypertension I10 Hypertension type: essential hypertension Cardiomyopathy I42.9 Cardiomyopathy type: unspecified History of implantable cardiac defibrillator (ICD) Z95.810 Exposure to COVID-19 virus Z20.822
[2022-03-21 07:53] LABS: INR 3.4 (0.9-1.1); Prothrombin Time 34.2 Seconds (9.0-12.0)
[2022-03-21 07:57] LABS: Basophils # (auto) 0.04 K/uL (0-0.2); Basophils % (auto) 0.2 %; Echinocytes 1+; Eosinophils # (auto) 1.21 K/uL (0-0.50); Eosinophils % (auto) 6.3 %; Immature Granulocytes # (auto) 0.25 K/uL (0.00-0.02); Immature Granulocytes % (auto) 1.3 %; Lymphocytes # (auto) 2.41 K/uL (1.2-3.4); Lymphocytes % (auto) 12.5 %; Monocytes # (auto) 0.99 K/uL (0.24-0.82); Monocytes % (auto) 5.1 %; Neutrophils # (auto) 14.44 K/uL (1.4-6.5); Neutrophils % (auto) 74.6 %; Polychromasia 1+; Toxic Vacuolation 1+
[2022-03-21] MEDS: METOPROLOL SUCC 50MG EXT REL TAB PO SCH (08:09)
[2022-03-21] MEDS: FOLIC ACID 1 MG TAB PO SCH (08:09)
[2022-03-21] MEDS: PANTOprazole 40 MG in SYRINGE 0 ML IV SCH (08:09)
[2022-03-21] MEDS: predniSONE 10 MG TABLET PO SCH (08:12)
--- NOTE | 2022-03-21 09:02 | Critical Care Progress Note ---
Date of Service March 21, 2022 Assessment & Plan (1) Bacteremia: Plan: 81-year-old female with generalized weakness who was found to have gram-negative bacteremia with concerns for possible biliary source. Requiring close hemodynamic monitoring given acuity of illness and possible need for urgent intervention. Continue Zosyn for gram-negative sepsis. Likely element of complicated UTI possible element of gangrenous colitis versus ischemic colitis. She is being transferred to [place] for interventional radiology evaluation and hepatology evaluation. ? Methotrexate/amiodarone/statin induced hepatitis Hold hepatotoxic medications given LFT derangements. Patient likely has ischemic hepatitis. Lactic acidosis likely slowly clearing due to liver failure. Prognosis remains very poor. Discussed with nurse and hospitalist service. (2) Cholecystitis: (3) Transaminitis: (4) Acute kidney injury: (5) Acute UTI: Admission and Anticipated Discharge Date Admission Date: March 20, 2022 Subjective Patient seen and examined. Hemodynamically stable, but lethargic. Denies any abdominal complaints or chest pain. Fatigue. Review of Systems Review of Systems: All systems reviewed & are unremarkable except as noted in HPI & below Physical Exam Physical Exam: VITAL SIGNS - Vital signs and nursing notes were reviewed. GENERAL - 81-year-old female appearing her stated age who is in no acute distress. Communicates well with provider and answers questions appropriately. HEAD - NC/AT. EYES - PERRL with EOMI bilaterally. Sclera anicteric. EARS - No deformities of external structures noted on gross examination bilaterally. NOSE - Midline and without cyanosis. No epistaxis or purulent drainage noted. MOUTH/OROPHARYNX - Without perioral cyanosis. Buccal mucosa pink and moist. NECK - Neck with FROM. Supple to palpation. No nuchal rigidity. LUNGS - Chest wall symmetric without accessory muscle use, intercostals retractions, or central cyanosis. Normal vesicular breath sounds CTA B/L. No wheezes, rales, or rhonchi appreciated. CARDIAC - RRR with S1/S2. No murmur, rubs, or gallops appreciated. ABDOMEN - Abdominal contour flat without pulsations or visible masses. Negative [place]'s or [place]'s Signs. BS normoactive all four quadrants. No tenderness to palpation appreciated throughout. No palpable masses, hepatosplenomegaly, or ascites noted. EXTREMITIES - No clubbing or peripheral cyanosis. No pretibial edema present. +2/5 radial pulses palpated throughout. +5/5 strength noted in UE/LE bilaterally. NEUROLOGIC - Cranial nerves II through XII grossly intact. Sensory intact to light touch throughout. PSYCH - A&Ox3 and cooperates fully with examiner. Pt is very pleasant and interacts well with examiner. Results & Data Results & Data ([facility]) Vital Signs (Past 12 Hours) Vital Signs Temp Pulse Resp BP Pulse Ox 03/21/22 07:00 36.5 C 26 H 03/21/22 06:52 149/97 H 03/21/22 06:52 36.5 C 97 H 26 H 03/21/22 06:13 36.4 C L 90 30 H 97 03/21/22 06:13 147/96 H 03/21/22 06:00 36.4 C L 83 32 H 97 03/21/22 05:52 36.4 C L 90 30 H 96 03/21/22 05:52 145/105 H 03/21/22 05:00 36.3 C L 86 26 H 97 03/21/22 04:54 131/95 03/21/22 04:54 36.3 C L 87 27 H 03/21/22 04:40 36.3 C L 89 28 H 96 03/21/22 04:30 36.3 C L 94 H 21 91 03/21/22 04:20 36.3 C L 85 21 96 03/21/22 04:10 36.4 C L 84 15 96 03/21/22 04:00 36.4 C L 90 26 H 97 03/21/22 03:53 36.4 C L 79 24 95 03/21/22 03:53 133/100 03/21/22 03:50 36.3 C L 82 26 H 97 03/21/22 03:40 36.4 C L 87 33 H 96 03/21/22 03:30 36.4 C L 89 28 H 97 03/21/22 03:20 36.4 C L 96 H 31 H 96 03/21/22 03:10 36.4 C L 90 26 H 96 03/21/22 03:00 36.4 C L 89 27 H 97 03/21/22 02:53 153/89 H 03/21/22 02:53 36.4 C L 99 H 24 95 03/21/22 02:50 36.4 C L 91 H 30 H 96 03/21/22 02:40 36.4 C L 95 H 27 H 94 03/21/22 02:30 36.5 C 84 24 95 03/21/22 02:20 36.5 C 86 14 97 03/21/22 02:10 36.5 C 96 H 29 H 97 03/21/22 02:00 36.5 C 99 H 22 94 03/21/22 01:53 36.5 C 90 34 H 97 03/21/22 01:53 157/94 H 03/21/22 01:50 36.5 C 88 33 H 95 03/21/22 01:40 36.4 C L 88 32 H 97 03/21/22 01:30 36.5 C 83 11 L 97 03/21/22 01:20 36.4 C L 96 H 20 98 03/21/22 01:10 36.4 C L 90 31 H 97 03/21/22 01:00 36.3 C L 96 H 26 H 96 03/21/22 00:52 138/95 03/21/22 00:52 36.3 C L 90 26 H 97 03/21/22 00:50 36.3 C L 98 H 20 97 03/21/22 00:40 36.3 C L 90 21 97 03/21/22 00:30 36.2 C L 100 H 21 97 03/21/22 00:20 36.2 C L 89 16 98 03/21/22 00:10 36.2 C L 87 21 97 03/21/22 00:00 36.1 C L 85 24 96 03/20/22 23:52 145/96 H 03/20/22 23:52 36.0 C L 96 H 31 H 97 03/20/22 23:50 36.0 C L 93 H 19 97 03/20/22 23:40 35.9 C L 92 H 32 H 98 03/20/22 23:30 35.8 C L 81 28 H 97 03/20/22 23:20 35.7 C L 84 24 98 03/20/22 23:10 35.6 C L 93 H 30 H 98 03/20/22 23:00 35.5 C L 84 20 99 03/21/22 00:51 65 03/20/22 22:53 35.5 C L 75 0 L 99 03/20/22 22:53 135/95 03/20/22 22:50 35.5 C L 95 H 28 H 96 03/20/22 22:40 35.4 C L 86 27 H 84 L 03/20/22 22:30 35.3 C L 76 22 100 03/20/22 22:20 35.3 C L 79 19 98 03/20/22 22:10 35.3 C L 77 19 98 03/20/22 22:00 35.2 C L 76 13 99 03/20/22 21:53 127/92 03/20/22 21:53 35.2 C L 81 12 99 03/20/22 21:50 35.2 C L 83 23 98 03/20/22 21:40 35.1 C L 92 H 26 H 98 03/20/22 21:30 35.1 C L 72 23 99 03/20/22 21:20 35.1 C L 81 26 H 100 03/20/22 21:10 35.1 C L 83 22 100 03/20/22 21:00 35.0 C L 85 16 98 Coding Level of Care Code 01250 Subseq Hosp Care Lvl 3 Diagnoses Bacteremia R78.81 Cholecystitis K81.9 Transaminitis R74.01 Acute kidney injury N17.9 Acute UTI N39.0
[2022-03-21] MEDS ORDERED: cefTRIAXone SODIUM 1,000 MG in DEXTROSE 5% AD-VAN 50 ML IV SCH (21:00)
[2022-03-23] MEDS ORDERED: predniSONE 1 MG TAB PO SCH (09:00)
[2022-03-25] MEDS ORDERED: metHOTREXate sodium 2.5 MG TAB PO SCH (09:00)
== END 2022-03-21 09:40 | disposition short-term general hospital (02) | DRG 872 ==
LOC: EDINP 16:54 → ED 16:54 → SUATTDRO 21:07 → 1E 23:17

== ENCOUNTER 2023-02-25 04:32 | Observation (INO) ==
[2023-02-25] MEDS ORDERED: ONDANSETRON INJ 2 MG/ML 2 ML VIAL IV STA (04:49)
[2023-02-25] MEDS ORDERED: SODIUM CHLORIDE 0.9% 500 ML IV STA (04:49)
[2023-02-25 05:10] LABS: Basophils # (auto) 0.05 K/uL (0.00-0.20); Basophils % (auto) 0.3 %; Eosinophils # (auto) 0.04 K/uL (0.00-0.50); Eosinophils % (auto) 0.2 %; Hematocrit (blood only) 48.4 % (37.0-47.0); Hemoglobin 15.4 g/dl (12.0-16.0); Immature Granulocytes # (auto) 0.16 K/uL (0.01-0.20); Immature Granulocytes % (auto) 0.9 %; Lymphocytes # (auto) 1.79 K/uL (1.20-3.40); Lymphocytes % (auto) 9.7 %; Mean Corpuscular Hemoglobin 29.6 pg (25.0-34.0); Mean Corpuscular Hgb Conc 31.8 g/dL (32.0-36.0); Mean Corpuscular Volume 93.1 fL (80.0-100.0); Mean Platelet Volume 9.5 fL (9.4-12.4); Monocytes # (auto) 0.97 K/uL (0.11-0.59); Monocytes % (auto) 5.3 %; Neutrophils # (auto) 15.39 K/uL (1.40-6.50); Neutrophils % (auto) 83.6 %; Nucleated RBC # (auto) 0.02 K/uL (0.00-0.12); Nucleated RBC % (auto) 0.1 %; Platelet Count 229 K/uL (130-400); RDW Coefficient of Variation 16.2 % (11.5-14.5); RDW Standard Deviation 55.9 fL (36.4-46.3)
[2023-02-25 05:30] LABS: Alanine Aminotransferase 22 U/L (7-52); Albumin Globulin Ratio 1.2 (0.9-2); Albumin Level 3.6 gm/dl (3.4-5.0); Alkaline Phosphatase 83 U/L (34-104); Anion Gap 9 (3-11); Aspartate Aminotransferase 24 U/L (13-39); Bilirubin,Total 1.3 mg/dl (0.2-1.0); Blood Urea Nitrogen 22 mg/dl (6-23); Calcium 9.3 mg/dl (8.6-10.3); Carbon Dioxide 29 mmol/L (21-32); Chloride 103 mmol/L (98-107); Est GFR (African American) 54.1 ml/min; Est GFR (Non-African American) 46.7 ml/min; Globulin 2.9 gm/dl (2.5-4.0); Glucose 127 mg/dl (70-99(Fasting)); Lipase 10 U/L (11-82); Potassium 3.8 mmol/L (3.5-5.1); Sodium 141 mmol/L (136-145); Total Protein 6.5 gm/dl (6.0-8.3)
[2023-02-25] MEDS ORDERED: MoRPHine SULFATE 2 MG/ML CARP IV STA (05:30)
[2023-02-25 05:34] LABS: Troponin I High Sensitivity 41.4 pg/ml (0-14)
[2023-02-25 05:47] LABS: INR 1.1 (0.9-1.1); Partial Thromboplastin Ratio 0.9; Partial Thromboplastin Time 25.1 Seconds (21.0-31.0); Prothrombin Time 11.5 Seconds (9.0-12.0)
--- NOTE | 2023-02-25 06:09 | Emergency Department Note ---
Impression & Plan Wound of right foot, Acute UTI, Calculus, ureteral ED Provider Note CHIEF COMPLAINT: Right flank pain HISTORY OF PRESENT ILLNESS: This 82-year-old female patient with past medical history of atrial fibrillation on apixaban, valvular heart disease, AICD, peripheral arterial disease, rheumatoid arthritis COPD, hypertension, cardiomyopathy, brain aneurysm, renal stones presents to the emergency department with complaints of right flank pain. The patient states she has "been doing this all day" complaining of intermittent discomfort in the right flank that she believes is a kidney stone. She has had stones in the past the last was several years ago. She has not had a fever, vomiting or diarrhea. REVIEW OF SYSTEMS: A review of systems was performed with positives and pertinent negatives listed in the history of present illness. 10 systems were reviewed and are otherwise negative. ALLERGIES: see below MEDICATIONS: see below PMH: see below SOCIAL HISTORY: see below DDx: Renal colic, UTI, appendicitis, diverticulitis, mesenteric ischemia, aortic pathology, infections, inflammatory bowel disease, PUD, biliary pathology, as well as other pathologies. PHYSICAL EXAM: Vital signs reviewed. General: Well-appearing 82-year-old female, in no significant distress. HEENT: No scleral icterus, PERRLA, neck supple. Atraumatic. Cardiovascular: irregular, rate controlled. Systolic ejection murmur. Pulmonary: Clear to auscultation bilaterally, normal work of breathing. Abdomen: Soft, nontender, nondistended, positive bowel sounds. Musculoskeletal: Atraumatic, no peripheral edema. No significant CVA tenderness Neurologic: Patient awake alert and oriented x 3, speech is clear Skin: Warm, dry, no rash EMERGENCY DEPARTMENT COURSE/MDM: This patient was evaluated and appeared to be in no significant distress. IV access was obtained and laboratory work was drawn. The patient was placed on the cardiac nurse. She was hydrated with normal saline solution. Patient was medicated with IV morphine, IV Zofran and IV Toradol for her discomfort. Laboratory work reveals mild leukocytosis but is otherwise clear. UA is concerning for infection. She was medicated with IV ceftriaxone and CT imaging of the abdomen pelvis was ordered. There is significant evidence of bilateral renal stones. Case was discussed with urology due to the obstructing large renal stone. Both urology and medicine services have been contacted on the patient will evaluate for admission and further management. MONITORING: An order for cardiac monitoring was placed and the patient is noted to be in a normal sinus rhythm at 64 beats per minute. RADIOLOGY: CT imaging of the abdomen pelvis to my review reveals a likely staghorn calculus in the right kidney in addition to a approximately 5 cm stone in the renal pelvis EKG: to my interpretation reveals atrial fibrillation with premature ventricular beat At a rate of [address] and T wave abnormality. QTc is 382. DISPOSITION: Admission Past Med/Surg History Medical History Acute UTI Right ureteral stone Exposure to COVID-19 virus Coagulopathy Acute liver failure Bacteremia Septicemia due to Gram negative organism Acute kidney injury Transaminitis Cholecystitis Bacteremia Elevated troponin Prolonged QT interval Urinary tract infection Elevated troponin Anoxic brain injury Cardiogenic shock Respiratory failure with hypoxia Cardiac arrest Ventricular fibrillation PAD (peripheral artery disease) Hyponatremia Chronic steroid use Duodenitis Pneumonia Ingrown toenail of left foot Atrial fibrillation Kidney stones GERD (gastroesophageal reflux disease) Hypertension Hyperlipidemia Osteoporosis, unspecified Permanent atrial fibrillation Anxiety GERD (gastroesophageal reflux disease) Systolic CHF Rheumatoid arthritis Atrial fibrillation with RVR Pneumonia Brain aneurysm under surveillance by PCP (stable x years) COPD (chronic obstructive pulmonary disease) Bronchitis (~03/23/19) Surgical History History of implantable cardiac defibrillator (ICD) History of lithotripsy History of thoracotomy FOR COLLAPSED LUNG - HAD WEDGE RESECTION LOWER RIGHT Hx of cataract extraction H/O foot surgery Family History Mother Arthritis Father Congestive heart failure (CHF) Aunt Breast cancer Sister Stroke Other Thoracic aortic aneurysm Denies family history of Ovarian cancer Prostate cancer Diabetes Myocardial infarction Lung cancer Colorectal cancer Social History Smoking Status: Never smoker Age Started Using Tobacco: 16; Age Quit Using Tobacco: 45; packs per day: 0.5; Second Hand Exposure: No; Do You Dip or Chew Tobacco: No; Hx Alcohol Use: No Hx Substance Use: No Preferred Language: Stateless Communication Ability: Effective Visual Impairment: Limited Hearing Ability: Normal [employer] Member Required: No Beliefs That Will Affect Care: None marital status: / Current Living Situation: Alone current occupational status: retired How many Children do You have: 5 Feels Safe at Home: Yes Childhood Exposure to Second-Hand Smoke: Yes (dad did off and on ) caffeine: Yes (coffee) Dental Care, Regularly: No Physical Activity Frequency: Daily Physical Activity Frequency Comment: walks daily Seatbelt Use: always Sunscreen Use: Yes Assistive Devices: Cane Allergies Allergies Allergy/AdvReac Type Severity Reaction Status Date / Time morphine AdvReac Intermediate NAUSEA Verified 01/23/23 11:39 Home Meds Home Medications Medication Instructions Recorded Confirmed clopidogrel 75 mg tablet 75 mg PO QAM 04/02/22 02/28/23 folic acid 1 mg tablet 1 mg PO QAM 01/09/23 02/28/23 Previous Rx's Medication Instructions Recorded sacubitril 24 mg-valsartan 26 mg 1 tab PO BID #60 tabs 01/11/23 tablet (Entresto) prednisone 10 mg tablet 10 mg PO QAM PRN arthritic pain 01/18/23 #30 tabs apixaban 2.5 mg tablet 2.5 mg PO BID #180 tabs 02/18/23 dapagliflozin propanediol 10 mg 10 mg PO DAILY #90 tabs 02/22/23 tablet (Farxiga) cephalexin 500 mg capsule 500 mg PO Q6H 7 days #28 caps 02/27/23 digoxin 125 mcg (0.125 mg) tablet 0.125 mg PO DAILY #30 tabs 02/27/23 metoprolol tartrate 25 mg tablet 25 mg PO BID #60 tabs 02/27/23 Results & Data (ED) Vital Signs Vital Signs - 24 hr 02/25/23 04:35 02/25/23 05:01 02/25/23 05:30 Temperature 36 C L Temperature Source Temporal Artery Scan Pulse Rate 67 53 L Pulse Rate [Apical] 64 Pulse Rhythm [Apical] Irregular Pulse Strength [Apical] Normal Respiratory Rate 20 18 Respiratory Effort / Characteristics Non-Labored Spontaneous Non-Labored Spontaneous Respiratory Depth Normal Normal Respiratory Pattern Regular Regular Blood Pressure 180/82 H Blood Pressure [Right Arm] 171/97 H Blood Pressure Mean 114 Blood Pressure Mean [Right Arm] 121 Pulse Oximetry 97 98 Oxygen Delivery Method Room Air Room Air Sepsis Recent Fever Within 48 Hours No Sepsis New/Unexplained Change in Mental Status No Sepsis Action Taken by Nursing No Action Required Home Medications Current Medication List: was personally reviewed by me Laboratory Data Attestation: I reviewed the patient's lab results. 02/27/23 05:44 02/27/23 05:44 Lab Results 02/25/23 02/25/23 Range/Units 04:48 05:50 WBC 18.40 H (4.8-10.8) K/ul RBC 5.20 (4.20-5.40) M/uL Hgb 15.4 (12.0-16.0) g/dl Hct 48.4 H (37.0-47.0) % MCV 93.1 (80.0-100.0) fL MCH 29.6 (25.0-34.0) pg MCHC 31.8 L (32.0-36.0) g/dL RDW Std Deviation 55.9 H (36.4-46.3) fL RDW Coeff of Libra 16.2 H (11.5-14.5) % Plt Count 229 (130-400) K/uL MPV 9.5 (9.4-12.4) fL Immature Gran % (Auto) 0.9 % Neut % (Auto) 83.6 % Lymph % (Auto) 9.7 % [place] % (Auto) 5.3 % Eos % (Auto) 0.2 % Baso % (Auto) 0.3 % Neut # (Auto) 15.39 H (1.40-6.50) K/uL Lymph # (Auto) 1.79 (1.20-3.40) K/uL [place] # (Auto) 0.97 H (0.11-0.59) K/uL Eos # (Auto) 0.04 (0.00-0.50) K/uL Baso # (Auto) 0.05 (0.00-0.20) K/uL Immature Gran # (Auto) 0.16 (0.01-0.20) K/uL Absolute Nucleated RBC 0.02 (0.00-0.12) K/uL Nucleated RBC % (auto) 0.1 % PT 11.5 (9.0-12.0) Seconds INR 1.1 (0.9-1.1) APTT 25.1 (21.0-31.0) Seconds PTT Ratio 0.9 Sodium 141 (136-145) mmol/L Potassium 3.8 (3.5-5.1) mmol/L Chloride 103 (98-107) mmol/L Carbon Dioxide 29 (21-32) mmol/L Anion Gap 9 (3-11) BUN 22 (6-23) mg/dl Creatinine 1.10 (0.6-1.2) mg/dl Est Cr Clr Drug Dosing Not Reportable Est GFR ( Amer) 54.1 ml/min Est GFR (Non-Af Amer) 46.7 ml/min BUN/Creatinine Ratio 20.0 (10-20) Glucose 127 H (70-99(Fasting)) mg/dl Calcium 9.3 (8.6-10.3) mg/dl Total Bilirubin 1.3 H (0.2-1.0) mg/dl AST 24 (13-39) U/L ALT 22 (7-52) U/L Alkaline Phosphatase 83 (34-104) U/L Troponin I High Sens 41.4 H (0-14) pg/ml Total Protein 6.5 (6.0-8.3) gm/dl Albumin 3.6 (3.4-5.0) gm/dl Globulin 2.9 (2.5-4.0) gm/dl Albumin/Globulin Ratio 1.2 (0.9-2) Lipase 10 L (11-82) U/L Urine Color Yellow Urine Appearance Cloudy A (Clear) Urine pH 6.0 (4.5-7.5) Ur Specific [place] 1.026 (1.000-1.030) Urine Protein 1+ H (Negative) Urine Glucose (UA) Negative (Negative) Urine Ketones Trace H (Negative) Urine Blood 3+ H (Negative) Urine Nitrite Positive A (Negative) Urine Bilirubin Negative (Negative) Urine Urobilinogen Negative (Negative) Ur Leukocyte Esterase 2+ H (Negative) Urine WBC (Auto) >30 H (0-5) /hpf Urine RBC (Auto) 0-4 (0-4) /hpf U Hyaline Cast (Auto) 5-10 H (0-5) /lpf U Epithel Cells (Auto) >30 H (0-5) /lpf Urine Bacteria (Auto) 2+ H (Negative) Urine Crystals Not Reportable Calcium Oxalate Crystal Present A (None Prsent) Urine Yeast Budding A (None Prsent) Administered Medications Discontinued Medications Apixaban (Apixaban 2.5 Mg Tab) 2.5 mg PO BID AAKASH Stop: 03/29/23 08:59 Last Admin: 02/27/23 08:29 Dose: 2.5 mg Documented By: BENEDICTO Diatrizoate Meglumine (Diatrizoate Meglumine 30% 100ml Vial) 10 ml INSTIL ONCE ONE Stop: 02/25/23 15:55 Last Admin: 02/25/23 15:54 Dose: 10 ml Documented By: [id number] Digoxin (Digoxin 0.125 Mg/2.5 Ml Udp) 0.125 mg PO DAILY@1600 AAKASH Stop: 03/28/23 15:59 Last Admin: 02/26/23 17:37 Dose: 0.125 mg Documented By: EP Folic Acid (Folic Acid 1 Mg Tab) 1 mg PO QAM AAKASH Stop: 03/29/23 08:59 Last Admin: 02/27/23 08:29 Dose: 1 mg Documented By: BENEDICTO Sodium Chloride (Nss) 500 mls @ 999 mls/hr IV .Q31M STA Stop: 02/25/23 05:19 Last Infusion: 02/25/23 06:03 Dose: Infused Documented By: Admin: 02/25/23 05:30 Dose: 999 mls/hr Documented By: NORMA Ceftriaxone Sodium (Rocephin) 1,000 mg in 50 mls @ 100 mls/hr IV NOW STA Stop: 02/25/23 06:59 Last Infusion: 02/25/23 07:55 Dose: Infused Documented By: Admin: 02/25/23 06:42 Dose: 100 mls/hr Documented By: STACEY Ceftriaxone Sodium 1,000 mg/ (Dextrose) 50 mls @ 100 mls/hr IV Q24H [facility]; Protocol Stop: 03/07/23 12:59 Last Infusion: 02/27/23 06:39 Dose: Infused Documented By: Admin: 02/27/23 06:09 Dose: 100 mls/hr Documented By: Infusion: 02/26/23 06:34 Dose: Infused Documented By: Admin: 02/26/23 06:04 Dose: 100 mls/hr Documented By: MAUDE Potassium Chloride/Sodium Chloride (Normal Saline W/20 Meq Kcl) 20 meq in 1,000 mls @ 100 mls/hr IV .Q10H AAKASH Stop: 03/27/23 10:14 Last Infusion: 02/26/23 21:00 Dose: Infused Documented By: Admin: 02/26/23 20:06 Dose: 100 mls/hr Documented By: Infusion: 02/26/23 19:35 Dose: Infused Documented By: Admin: 02/26/23 09:35 Dose: 100 mls/hr Documented By: Infusion: 02/26/23 08:51 Dose: Infused Documented By: Admin: 02/25/23 22:51 Dose: 100 mls/hr Documented By: Infusion: 02/25/23 20:54 Dose: Infused Documented By: Admin: 02/25/23 10:54 Dose: 100 mls/hr Documented By: JASMINA Digoxin 125 mcg/ Syringe 10 mls @ 2 mls/min IV ONE ONE Stop: 02/25/23 10:19 Last Admin: 02/25/23 10:54 Dose: 2 mls/min Documented By: JASMINA Vancomycin HCl 1,000 mg/ (Sodium Chloride) 270 mls @ 200 mls/hr IV NOW ONE Stop: 02/25/23 12:35 Last Infusion: 02/25/23 13:23 Dose: Infused Documented By: Admin: 02/25/23 12:00 Dose: 200 mls/hr Documented By: JASMINA Vancomycin HCl 750 mg/ Sodium (Chloride) 265 mls @ 200 mls/hr IV Q24H AAKASH Stop: 03/08/23 08:59 Last Infusion: 02/26/23 13:56 Dose: Infused Documented By: Admin: 02/26/23 10:10 Dose: 200 mls/hr Documented By: GINI Sodium Chloride (Nss) 1,000 mls @ 80 mls/hr IV .[id number] AAKASH Stop: 02/27/23 09:29 Last Infusion: 02/27/23 09:30 Dose: Infused Documented By: Admin: 02/26/23 21:00 Dose: 80 mls/hr Documented By: MAUDE Magnesium Sulfate/Dextrose (Magnesium Sulfate / D5w) 1 gm in 100 mls @ 50 mls/hr IV Q2H AAKASH Stop: 02/27/23 12:29 Last Infusion: 02/27/23 14:00 Dose: Infused Documented By: Admin: 02/27/23 12:00 Dose: 50 mls/hr Documented By: Infusion: 02/27/23 12:00 Dose: Infused Documented By: Admin: 02/27/23 10:16 Dose: 50 mls/hr Documented By: BENEDICTO Insulin Aspart (Insulin Aspart Per Unit Charge) 0 units SC ACHS AAKASH Stop: 03/27/23 07:29 Last Admin: 02/27/23 12:18 Dose: 3 units Documented By: BENEDICTO Co-signed By: LIZZY Admin: 02/27/23 08:22 Dose: Not Given Documented By: Admin: 02/26/23 21:00 Dose: Not Given Documented By: Admin: 02/26/23 17:38 Dose: Not Given Documented By: Admin: 02/26/23 13:51 Dose: Not Given Documented By: Admin: 02/26/23 08:48 Dose: Not Given Documented By: Admin: 02/25/23 19:44 Dose: Not Given Documented By: Admin: 02/25/23 19:41 Dose: Not Given Documented By: Admin: 02/25/23 13:18 Dose: Not Given Documented By: Admin: 02/25/23 08:29 Dose: 1 units Documented By: JASMINA Co-signed By: JYOTHI Metoprolol Tartrate (Metoprolol Tartrate 1 Mg/Ml Vial) 5 mg IV Q4 AAKASH Stop: 03/27/23 09:59 Last Admin: 02/26/23 18:33 Dose: Not Given Documented By: Admin: 02/26/23 14:20 Dose: Not Given Documented By: Admin: 02/26/23 10:11 Dose: Not Given Documented By: Admin: 02/26/23 05:36 Dose: Not Given Documented By: Admin: 02/26/23 00:15 Dose: Not Given Documented By: Admin: 02/25/23 19:43 Dose: Not Given Documented By: Admin: 02/25/23 19:42 Dose: Not Given Documented By: Admin: 02/25/23 13:15 Dose: 5 mg Documented By: Admin: 02/25/23 10:53 Dose: 5 mg Documented By: JASMINA Metoprolol Tartrate (Metoprolol Tartrate 25 Mg Tab) 25 mg PO BID AAKASH Stop: 03/28/23 20:59 Last Admin: 02/27/23 08:29 Dose: 25 mg Documented By: Admin: 02/26/23 20:07 Dose: 25 mg Documented By: MAUDE Miscellaneous (Patient's Height &/Or Weight Needed) 1 each N/A NOW STA Stop: 02/25/23 06:58 Last Admin: 02/25/23 08:00 Dose: 1 each Documented By: VIDAL Morphine Sulfate (Morphine Sulfate 2 Mg/Ml [place]) 2 mg IV NOW STA Stop: 02/25/23 05:31 Last Admin: 02/25/23 05:52 Dose: 2 mg Documented By: NORMA Ondansetron HCl (Ondansetron Inj 2 Mg/Ml 2 Ml Vial) 4 mg IV NOW STA Stop: 02/25/23 04:50 Last Admin: 02/25/23 04:52 Dose: 4 mg Documented By: HIWOT Ondansetron HCl (Ondansetron Inj 2 Mg/Ml 2 Ml Vial) 4 mg IV Q6H PRN PRN Reason: Nausea Stop: 03/27/23 09:51 Last Admin: 02/25/23 12:42 Dose: 4 mg Documented By: JASMINA Sacubitril/Valsartan (Valsartan/Sacubitril 26/24mg Tab) 1 tab PO BID AAKASH Stop: 03/28/23 20:59 Last Admin: 02/27/23 08:30 Dose: 1 tab Documented By: Admin: 02/26/23 20:07 Dose: 1 tab Documented By: MAUDE Imaging Data Radiologist's Impression: Abdomen/Pelvis CT 02/25/23 04:44 CT OF THE ABDOMEN AND PELVIS WITHOUT CONTRAST CLINICAL HISTORY: flank pain, hx stones COMPARISON STUDY: CT of the abdomen and pelvis and right upper quadrant ultrasound March 20, 2022. TECHNIQUE: Axial images of the abdomen and pelvis were obtained without IV contrast. Images were reviewed in the axial, sagittal, and coronal planes. Automated exposure control was utilized for the study. A dose lowering technique was utilized adhering to the principles of ALARA. FINDINGS: Cardiomegaly is incidentally noted. Pacer leads are partially visualized. There is a trace left pleural effusion. No pneumatosis, free air or portal venous gas is present. A 1.2 x 0.6 cm distal right ureteral calculus just proximal to the ureterovesical junction results in moderate right hydroureteronephrosis with moderate right perinephric fluid and stranding. Multiple right renal calculi are noted, including a large upper pole calculus which measures 1.9 cm. A few small left renal calculi are present. There are no left ureteral calculi. There is no left hydronephrosis. A few hepatic cysts are noted. Spleen, adrenal glands and pancreas are unremarkable. There is no evidence for a bowel obstruction. There is no lymphadenopathy. No fluid collections are present. No acute fractures within the visualized skeletal structures are present. IMPRESSION: 1. 1.2 x 0.6 cm distal right ureteral calculus results in moderate right hydroureteronephrosis with perinephric fluid and stranding. 2. Large right upper pole renal calculus. Additional smaller bilateral renal calculi. No left hydronephrosis. No left ureteral calculi. ACT 112: Negative or not required by law. Electronically signed by: Jose Russell M.D. 02/25/2023 7:02 AM Discharge Plan Visit Data Chief Complaint: Flank Pain Stated Complaint: FLANK PAIN/POSSIBLE KIDNEY STONES ED Provider: Julia Hernandez Discharge Problem: Wound of right foot, Acute UTI, Calculus, ureteral Patient Disposition: Admitted As Inpatient Discharge Instructions Interventions: ED Discharge Assessment Last Done: 02/25/23 09:53
[2023-02-25 06:10] LABS: Appearance Urine Cloudy (Clear); Bacteria Urine Automated 2+ (Negative); Bilirubin Urine Negative (Negative); Blood Urine 3+ (Negative); Color Urine Yellow; Epithelial Cell Urine Auto >30 /lpf (0-5); Glucose Urine UA Negative (Negative); Ketones Urine Trace (Negative); Leukocyte Esterase Urine 2+ (Negative); Nitrite Urine Positive (Negative); Protein Urine 1+ (Negative); RBC Urine Automated 0-4 /hpf (0-4); Specific Gravity Urine 1.026 (1.000-1.030); Urobilinogen Urine Negative (Negative); WBC Urine Automated >30 /hpf (0-5)
[2023-02-25] MEDS ORDERED: cefTRIAXone SODIUM 1,000 MG/50 ML BAG IV STA (06:30)
[2023-02-25 06:45] LABS: Calcium Oxalate Crystals Urine Present (None Prsent)
[2023-02-25] MEDS ORDERED: ACETAMINOPHEN 1,000 MG/100 ML VIAL IV PRN (06:55)
[2023-02-25] MEDS ORDERED: MoRPHine SULFATE 2 MG/ML CARP IV PRN (06:55)
[2023-02-25] MEDS ORDERED: MoRPHine SULFATE 4 MG/ML 1 ML CARP\\VIAL IV PRN (06:55)
[2023-02-25] MEDS ORDERED: Patient's HEIGHT &/or WEIGHT Needed STA (06:57)
--- NOTE | 2023-02-25 07:05 | CT Scan Report ---
CT OF THE ABDOMEN AND PELVIS WITHOUT CONTRAST CLINICAL HISTORY: flank pain, hx stones COMPARISON STUDY: CT of the abdomen and pelvis and right upper quadrant ultrasound March 20, 2022. TECHNIQUE: Axial images of the abdomen and pelvis were obtained without IV contrast. Images were revi ewed in the axial, sagittal, and coronal planes. Automated exposure control was utilized for the marshal dy. A dose lowering technique was utilized adhering to the principles of ALARA. FINDINGS: Cardiomegaly is incidentally noted. Pacer leads are partially visualized. There is a trace left pleural effusion. No pneumatosis, free air or portal venous gas is present. A 1.2 x 0.6 cm dista l right ureteral calculus just proximal to the ureterovesical junction results in moderate right hydr oureteronephrosis with moderate right perinephric fluid and stranding. Multiple right renal calculi a re noted, including a large upper pole calculus which measures 1.9 cm. A few small left renal calculi are present. There are no left ureteral calculi. There is no left hydronephrosis. A few hepatic cyst s are noted. Spleen, adrenal glands and pancreas are unremarkable. There is no evidence for a bowel o bstruction. There is no lymphadenopathy. No fluid collections are present. No acute fractures within the visualized skeletal structures are present. IMPRESSION: 1. 1.2 x 0.6 cm distal right ureteral calculus results in moderate right hydroureteronephrosis with p erinephric fluid and stranding. 2. Large right upper pole renal calculus. Additional smaller bilateral renal calculi. No left hydrone phrosis. No left ureteral calculi. ACT 112: Negative or not required by law. Electronically signed by: Jose Russell M.D. 02/25/2023 7:02 AM
[2023-02-25] MEDS ORDERED: DEXTROSE 50% 50 ML SYRINGE IV PRN (07:10)
[2023-02-25] MEDS ORDERED: GLUCOSE 10 TAB/TUBE PO PRN (07:10)
[2023-02-25] MEDS ORDERED: GLUCAGON FOR INJ 1 MG VIAL SQ PRN (07:10)
[2023-02-25] MEDS ORDERED: GLUCOSE 40% GEL 15 GM TUBE PO PRN (07:10)
[2023-02-25] MEDS ORDERED: CARBOHYDRATES FOR HYPOGLYCEMIA PO PRN (07:10)
--- NOTE | 2023-02-25 07:11 | History & Physical Report ---
Date of Service February 25, 2023 Assessment & Plan (1) Rheumatoid arthritis: (2) Atrial fibrillation: (3) Right flank pain: (4) History of implantable cardiac defibrillator (ICD): (5) Right ureteral stone: (6) Acute UTI: Plan Right-sided kidney stone/UTI- Patient reports having had a previous kidney stone about [address] abdomen pelvis still pending at this time, but looks to show a right-sided kidney stone Patient's pain is on the right side NPO Follow urine culture and sensitivity Continue ceftriaxone 1 g IV daily begun in the ED NSS + KCl 20 mEq at 100 mils per hour Zofran 4 mg IV every 6 hours as needed Acetaminophen 1 g IV every 8 hours as needed for mild pain or fever Morphine sulfate 2 mg IV every 3 hours as needed for moderate pain Morphine sulfate 4 mg IV every 3 hours as needed for severe pain Consult urology, who aware of the patient Atrial fibrillation/hypertension/presence of ICD- While n.p.o., hold metoprolol succinate 300 mg daily and digoxin 125 mcg daily Give a dose of Lopressor 5 mg IV this morning, and every 4 hours with hold parameters Give a single dose of digoxin 125 mcg IV this morning Hold apixaban, clopidogrel and Entresto until postprocedure Diabetes mellitus- Hold dapagliflozin propanediol Placed on Accu-Cheks with NovoLog SSI Rheumatoid arthritis- Takes prednisone 10 mg as needed Does not appear to need stress dosing at this time, monitor closely History of Present Illness Chief Complaint: The patient presents to the emergency department with complaint of acute onset of right flank pain at about 6:00 last evening, it persisted through the night, presented to the ED for assessment, and was felt to have urinary tract infection and CT scans suggest a obstructing kidney stone on the right side Primary Care Provider: Luisa Holcomb PA-C The patient is an 82-year-old female with a past medical history including atrial fibrillation with rapid ventricular response, urine tract infections, kidney stone history, rheumatoid arthritis, atrial fibrillation, superior mesenteric artery stenosis, history of ICD, PAD, chronic anticoagulation with apixaban, left lower extremity ischemia, right lower extremity ischemia, COPD, cardiomyopathy and brain aneurysm. She presents to the emergency department with cute onset of right flank pain last evening, that persisted into the early breastfeeding care specialist, and has presented to the ED for assessment. Allergies Allergy/AdvReac Type Severity Reaction Status Date / Time morphine AdvReac Intermediate NAUSEA Verified 01/23/23 11:39 Home Medications Medication Instructions Recorded Confirmed Type clopidogrel 75 mg tablet 75 mg PO QAM 04/02/22 02/18/23 History folic acid 1 mg tablet 1 mg PO QAM 01/09/23 02/18/23 History metoprolol succinate 100 mg 100 mg PO DAILY #30 tabs 01/11/23 02/18/23 Rx tablet,extended release 24 hr metoprolol succinate 200 mg 200 mg PO DAILY #30 tabs 01/11/23 02/18/23 Rx tablet,extended release 24 hr sacubitril 24 mg-valsartan 26 mg 1 tab PO BID #60 tabs 01/11/23 02/18/23 Rx tablet (Entresto) prednisone 10 mg tablet 10 mg PO QAM PRN arthritic pain 01/18/23 02/18/23 Rx #30 tabs digoxin 125 mcg (0.125 mg) tablet 125 mcg PO DAILY #30 tabs 01/23/23 02/18/23 Rx apixaban 2.5 mg tablet 2.5 mg PO BID #180 tabs 02/18/23 02/18/23 Rx dapagliflozin propanediol 10 mg 10 mg PO DAILY #90 tabs 02/22/23 Rx tablet (Farxiga) Past Med/Surg History Medical History (Updated 02/25/23 @ 07:03 by Sam Lomax MD) Acute UTI Right ureteral stone Exposure to COVID-19 virus Coagulopathy Acute liver failure Bacteremia Septicemia due to Gram negative organism Acute kidney injury Transaminitis Cholecystitis Bacteremia Elevated troponin Prolonged QT interval Urinary tract infection Elevated troponin Anoxic brain injury Cardiogenic shock Respiratory failure with hypoxia Cardiac arrest Ventricular fibrillation PAD (peripheral artery disease) Hyponatremia Chronic steroid use Duodenitis Pneumonia Ingrown toenail of left foot Atrial fibrillation Kidney stones GERD (gastroesophageal reflux disease) Hypertension Hyperlipidemia Osteoporosis, unspecified Permanent atrial fibrillation Anxiety GERD (gastroesophageal reflux disease) Systolic CHF Rheumatoid arthritis Atrial fibrillation with RVR Pneumonia Brain aneurysm under surveillance by PCP (stable x years) COPD (chronic obstructive pulmonary disease) Bronchitis (~03/23/19) Surgical History History of implantable cardiac defibrillator (ICD) History of lithotripsy History of thoracotomy FOR COLLAPSED LUNG - HAD WEDGE RESECTION LOWER RIGHT Hx of cataract extraction H/O foot surgery Family History Mother Arthritis Father Congestive heart failure (CHF) Aunt Breast cancer Sister Stroke Other Thoracic aortic aneurysm Denies family history of Ovarian cancer Prostate cancer Diabetes Myocardial infarction Lung cancer Colorectal cancer Social History Smoking Status: Former smoker Age Started Using Tobacco: 16; Age Quit Using Tobacco: 45; packs per day: 0.5; Second Hand Exposure: No; Do You Dip or Chew Tobacco: No; Hx Alcohol Use: No Hx Substance Use: No Preferred Language: Mongolian Communication Ability: Effective Visual Impairment: Limited Hearing Ability: Normal Assisted Living Executive Director Required: No Beliefs That Will Affect Care: None marital status: / Current Living Situation: Alone current occupational status: retired How many Children do You have: 5 Feels Safe at Home: Yes Childhood Exposure to Second-Hand Smoke: Yes (dad did off and on ) caffeine: Yes (coffee) Dental Care, Regularly: No Physical Activity Frequency: Daily Physical Activity Frequency Comment: walks daily Seatbelt Use: always Sunscreen Use: Yes Assistive Devices: Cane, Denture - Upper, Denture - Lower, Glasses and Walker Review of Systems Review of Systems: The patient denies chest pain, palpitations, shortness of breath, dyspnea on exertion, cough, lower extremity swelling, sore throat, fevers, chills, sweats, vomiting, diarrhea , constipation, blood in urine or stool, lightheadedness, dizziness, headache, memory loss, loss of consciousness, rash, abnormal bruising or bleeding, imbalance, focal or generalized weakness, numbness or tingling in arms or legs, generalized arthralgias or myalgias, neck pain, or night sweats. The review of systems is otherwise negative other than for that already noted above, and at least 10 systems have been reviewed. Physical Exam Physical Exam: The patient is awake, alert and oriented 3, well developed and well nourished, normocephalic and atraumatic, lying in bed and in no acute distress. HEENT--PERRL, EOMI, mucous membranes and oropharynx dry. Neck--supple. No JVD. No bruits. Thyroid normal, trachea midline, no adenopathy. Heart--normal S1 and S2. No murmurs, rubs or gallops. Lungs--clear bilaterally, no respiratory distress, no accessory muscle use. Abdomen--normal bowel sounds and soft. Nontender. Nondistended, no hernias or masses, no organomegaly. Extremities--no cyanosis or clubbing. No edema. There are good distal pulses b/l. Dermatologic--normal skin turgor, normal color, no abnormal lymph nodes, no rash. Neurologic--cranial nerves II through XII grossly intact. Rheumatologic--normal range of motion. Psychiatric--normal affect. Mildly Results & Data Results & Data Vital Signs (Past 12 Hours) Vital Signs Temp Pulse Pulse Resp BP BP Pulse Ox 02/25/23 05:30 64 18 171/97 H 98 02/25/23 05:01 53 L 02/25/23 04:35 36 C L 67 20 180/82 H 97 O2 Del Method 02/25/23 05:30 Room Air 02/25/23 05:01 02/25/23 04:35 Room Air Laboratory Results Laboratory Results WBC 18.40 K/ul (4.8-10.8) H 02/25/23 04:48 RBC 5.20 M/uL (4.20-5.40) 02/25/23 04:48 Hgb 15.4 g/dl (12.0-16.0) 02/25/23 04:48 Hct 48.4 % (37.0-47.0) H 02/25/23 04:48 MCV 93.1 fL (80.0-100.0) 02/25/23 04:48 MCH 29.6 pg (25.0-34.0) 02/25/23 04:48 MCHC 31.8 g/dL (32.0-36.0) L 02/25/23 04:48 RDW Std Deviation 55.9 fL (36.4-46.3) H 02/25/23 04:48 RDW Coeff of Libra 16.2 % (11.5-14.5) H 02/25/23 04:48 Plt Count 229 K/uL (130-400) 02/25/23 04:48 MPV 9.5 fL (9.4-12.4) 02/25/23 04:48 Immature Gran % (Auto) 0.9 % 02/25/23 04:48 Neut % (Auto) 83.6 % 02/25/23 04:48 Lymph % (Auto) 9.7 % 02/25/23 04:48 [place] % (Auto) 5.3 % 02/25/23 04:48 Eos % (Auto) 0.2 % 02/25/23 04:48 Baso % (Auto) 0.3 % 02/25/23 04:48 Neut # (Auto) 15.39 K/uL (1.40-6.50) H 02/25/23 04:48 Lymph # (Auto) 1.79 K/uL (1.20-3.40) 02/25/23 04:48 [place] # (Auto) 0.97 K/uL (0.11-0.59) H 02/25/23 04:48 Eos # (Auto) 0.04 K/uL (0.00-0.50) 02/25/23 04:48 Baso # (Auto) 0.05 K/uL (0.00-0.20) 02/25/23 04:48 Immature Gran # (Auto) 0.16 K/uL (0.01-0.20) 02/25/23 04:48 Absolute Nucleated RBC 0.02 K/uL (0.00-0.12) 02/25/23 04:48 Nucleated RBC % (auto) 0.1 % 02/25/23 04:48 PT 11.5 Seconds (9.0-12.0) 02/25/23 04:48 INR 1.1 (0.9-1.1) 02/25/23 04:48 APTT 25.1 Seconds (21.0-31.0) 02/25/23 04:48 PTT Ratio 0.9 02/25/23 04:48 Sodium 141 mmol/L (136-145) 02/25/23 04:48 Potassium 3.8 mmol/L (3.5-5.1) 02/25/23 04:48 Chloride 103 mmol/L (98-107) 02/25/23 04:48 Carbon Dioxide 29 mmol/L (21-32) 02/25/23 04:48 Anion Gap 9 (3-11) 02/25/23 04:48 BUN 22 mg/dl (6-23) 02/25/23 04:48 Creatinine 1.10 mg/dl (0.6-1.2) 02/25/23 04:48 Est Cr Clr Drug Dosing Not Reportable 02/25/23 04:48 Est GFR ( Amer) 54.1 ml/min 02/25/23 04:48 Est GFR (Non-Af Amer) 46.7 ml/min 02/25/23 04:48 BUN/Creatinine Ratio 20.0 (10-20) 02/25/23 04:48 Glucose 127 mg/dl (70-99(Fasting)) H 02/25/23 04:48 Calcium 9.3 mg/dl (8.6-10.3) 02/25/23 04:48 Total Bilirubin 1.3 mg/dl (0.2-1.0) H 02/25/23 04:48 AST 24 U/L (13-39) 02/25/23 04:48 ALT 22 U/L (7-52) 02/25/23 04:48 Alkaline Phosphatase 83 U/L (34-104) 02/25/23 04:48 Troponin I High Sens 41.4 pg/ml (0-14) H 02/25/23 04:48 Total Protein 6.5 gm/dl (6.0-8.3) 02/25/23 04:48 Albumin 3.6 gm/dl (3.4-5.0) 02/25/23 04:48 Globulin 2.9 gm/dl (2.5-4.0) 02/25/23 04:48 Albumin/Globulin Ratio 1.2 (0.9-2) 02/25/23 04:48 Lipase 10 U/L (11-82) L 02/25/23 04:48 Urine Color Yellow 02/25/23 05:50 Urine Appearance Cloudy (Clear) A 02/25/23 05:50 Urine pH 6.0 (4.5-7.5) 02/25/23 05:50 Ur Specific [place] 1.026 (1.000-1.030) 02/25/23 05:50 Urine Protein 1+ (Negative) H 02/25/23 05:50 Urine Glucose (UA) Negative (Negative) 02/25/23 05:50 Urine Ketones Trace (Negative) H 02/25/23 05:50 Urine Blood 3+ (Negative) H 02/25/23 05:50 Urine Nitrite Positive (Negative) A 02/25/23 05:50 Urine Bilirubin Negative (Negative) 02/25/23 05:50 Urine Urobilinogen Negative (Negative) 02/25/23 05:50 Ur Leukocyte Esterase 2+ (Negative) H 02/25/23 05:50 Urine WBC (Auto) >30 /hpf (0-5) H 02/25/23 05:50 Urine RBC (Auto) 0-4 /hpf (0-4) 02/25/23 05:50 U Hyaline Cast (Auto) 5-10 /lpf (0-5) H 02/25/23 05:50 U Epithel Cells (Auto) >30 /lpf (0-5) H 02/25/23 05:50 Urine Bacteria (Auto) 2+ (Negative) H 02/25/23 05:50 Urine Crystals Not Reportable 02/25/23 05:50 Calcium Oxalate Crystal Present (None Prsent) A 02/25/23 05:50 Urine Yeast Budding (None Prsent) A 02/25/23 05:50 Code Status & VTE Plan Code Status full code VTE Prophylaxis Plan VTE Prophylaxis will be ordered: Yes PG Care Time/CCT Total # of Minutes Spent Total Time Spent with Patient: Total time spent is greater than 50% in coordination of care (as documented) at patient's floor/unit and/or counseling patient: Coding Level of Care Code 11621 INT INP/OBS CARE 3/75MIN Diagnoses Rheumatoid arthritis involving multiple sites with positive rheumatoid factor M05.79 Rheumatoid arthritis location: multiple sites Rheumatoid factor presence: with rheumatoid factor Atrial fibrillation I48.91 Right flank pain R10.9 History of implantable cardiac defibrillator (ICD) Z95.810 Right ureteral stone N20.1 Acute UTI N39.0 (1) Rheumatoid arthritis Rheumatoid arthritis location: multiple sites Rheumatoid factor presence: with rheumatoid factor Qualified Code(s): M05.79 - Rheumatoid arthritis with rheumatoid factor of multiple sites without organ or systems involvement
[2023-02-25] MEDS: INSULIN ASPART PER UNIT CHARGE SC SCH ×4 (08:29→19:44)
--- NOTE | 2023-02-25 08:40 | Electrocardiogram Report ---
Test Reason : Blood Pressure : / mmHG Vent. Rate : 063 BPM Atrial Rate : 000 BPM P-R Int : 000 ms QRS Dur : 084 ms QT Int : 374 ms P-R-T Axes : 000 002 028 degrees QTc Int : 382 ms Poor data quality, interpretation may be adversely affected Atrial fibrillation with premature ventricular or aberrantly conducted complexes Diffuse Nonspecific ST and T wave abnormality Abnormal ECG When compared with ECG of 09-JAN-2023 18:27, Vent. rate has decreased BY 56 BPM Confirmed by Fredrick Koroma ([id number]) on 02/25/2023 8:40:11 AM Referred By: REFERRED SELF Confirmed By:Fredrick Koroma
--- NOTE | 2023-02-25 08:58 | Urology Consultation ---
Date of Consultation February 25, 2023 Assessment & Plan (1) Ureteral stone with hydronephrosis: (2) Acute UTI: (3) Right flank pain: (4) Nephrolithiasis: Plan 82yo/F admitted with an obstructing distal right ureteral stone and concern for infection - Afebrile and hemodynamically stable. - Labs reviewed - WBC 18.40, Hemoglobin 15.4, Creatinine 1.10. - Urinalysis suspicion for infection, culture pending. - Voiding spontaneously, continue to monitor. - We discussed acute stone management with cystoscopy and stent placement. Ureteral stents were discussed as well as postoperative issues and pain management. She is aware a second procedure will be needed for stone treatment after the infection has resolved. Patient agreeable to plan, all questions were answered. - Will plan to proceed to OR today for cystoscopy, right retrograde pyelogram, right ureteral stent placement. - Risks and benefits discussed as per consent. - Continue supportive care, antibiotic therapy, pain management as needed. - Keep NPO. - Urology will follow. Plan of care reviewed with Dr. Zhang, on-call urologist. Attending note: Patient independently assessed, examined, interviewed, and evaluated. Agree with note as above. Patient's vitals and labs were all reviewed. Pertinent values in the HPI and plan section. Imaging was reviewed interpreted by myself. Agree with read. Vitals were reviewed. Discussed findings extensively with patient and family. Reviewed with nurse pr actitioner as well as consulting physicians/team. Patient's complicated medical and surgical history was reviewed and summarized above. Patient's surgical, medical, social, and family history were all reviewed with pertinent values as above. Discussed patient's current diagnosis as well as concerns and issues. Reviewed different options moving forward. Discussed potential risks and benefits as well as possible options and concerns. Reviewed potential surgical options and interventions. Discussed potential issues and concerns related to intervention. Risk and benefits were discussed extensively with patient and any available family. Discussed potential risks related to anesthesia. Discussed risks of bleeding infection and injury. Risks and benefits discussed at length for procedure. These include bleeding, infection, injury to surrounding tissues or organs, and risks associated with anesthesia. Patient states understanding and agrees to proceed. Will sign consent and schedule. Plan for cystoscopy and right stent. History of Present Illness History of Present Illness 82-year-old female with a past medical history including atrial fibrillation with RVR, UTI, nephrolithiasis, rheumatoid arthritis, atrial fibrillation, superior mesenteric artery stenosis, history of ICD, PAD, chronic anticoagulation with apixaban, left lower extremity ischemia, right lower extremity ischemia, COPD, cardiomyopathy and brain aneurysm who presented to the emergency department with acute onset of right flank pain which started last evening. On arrival, she was afebrile and hemodynamically stable. Labs show a WBC of 18.40, hemoglobin 15.4, creatinine 1.10. Urinalysis with 3+ blood, positive nitrite, 2+ LE, 2+ bacteria, calcium oxalate crystals present, budding yeast present. Urine culture pending. She was started on ceftriaxone and vancomycin. A CT abdomen pelvis was obtained and demonstrated a 1.2 cm distal right ureteral stone with moderate right hydronephrosis and a large right upper pole renal stone. She is admitted to medicine service for continued care and management. CT abdomen pelvis 1. 1.2 x 0.6 cm distal right ureteral calculus results in moderate right hydroureteronephrosis with perinephric fluid and stranding. 2. Large right upper pole renal calculus. Additional smaller bilateral renal calculi. No left hydronephrosis. No left ureteral calculi. Patient examined at bedside this AM in the ED. Awake, resting in bed on arrival. No acute distress. Reports pain is currently controlled. Denies fevers, chills, nausea, vomiting at present. Has been NPO. Voiding without issue. Denies hematuria or dysuria. Reports prior history of stones with last intervention in 2019. Also notes she has been dealing with recurrent UTIs recently. Allergies Allergy/AdvReac Type Severity Reaction Status Date / Time morphine AdvReac Intermediate NAUSEA Verified 01/23/23 11:39 Home Medications Medication Instructions Recorded Confirmed Type clopidogrel 75 mg tablet 75 mg PO QAM 04/02/22 02/25/23 History folic acid 1 mg tablet 1 mg PO QAM 01/09/23 02/25/23 History metoprolol succinate 100 mg 100 mg PO DAILY #30 tabs 01/11/23 02/25/23 Rx tablet,extended release 24 hr metoprolol succinate 200 mg 200 mg PO DAILY #30 tabs 01/11/23 02/25/23 Rx tablet,extended release 24 hr sacubitril 24 mg-valsartan 26 mg 1 tab PO BID #60 tabs 01/11/23 02/25/23 Rx tablet (Entresto) prednisone 10 mg tablet 10 mg PO QAM PRN arthritic pain 01/18/23 02/25/23 Rx #30 tabs digoxin 125 mcg (0.125 mg) tablet 125 mcg PO DAILY #30 tabs 01/23/23 02/25/23 Rx apixaban 2.5 mg tablet 2.5 mg PO BID #180 tabs 02/18/23 02/25/23 Rx dapagliflozin propanediol 10 mg 10 mg PO DAILY #90 tabs 02/22/23 Rx tablet (Farxiga) lisinopril 10 mg tablet 10 mg PO DAILY 02/25/23 02/25/23 History Patient History Medical History Acute UTI Right ureteral stone Exposure to COVID-19 virus Coagulopathy Acute liver failure Bacteremia Septicemia due to Gram negative organism Acute kidney injury Transaminitis Cholecystitis Bacteremia Elevated troponin Prolonged QT interval Urinary tract infection Elevated troponin Anoxic brain injury Cardiogenic shock Respiratory failure with hypoxia Cardiac arrest Ventricular fibrillation PAD (peripheral artery disease) Hyponatremia Chronic steroid use Duodenitis Pneumonia Ingrown toenail of left foot Atrial fibrillation Kidney stones GERD (gastroesophageal reflux disease) Hypertension Hyperlipidemia Osteoporosis, unspecified Permanent atrial fibrillation Anxiety GERD (gastroesophageal reflux disease) Systolic CHF Rheumatoid arthritis Atrial fibrillation with RVR Pneumonia Brain aneurysm under surveillance by PCP (stable x years) COPD (chronic obstructive pulmonary disease) Bronchitis (~03/23/19) Surgical History History of implantable cardiac defibrillator (ICD) History of lithotripsy History of thoracotomy FOR COLLAPSED LUNG - HAD WEDGE RESECTION LOWER RIGHT Hx of cataract extraction H/O foot surgery Family History Mother Arthritis Father Congestive heart failure (CHF) Aunt Breast cancer Sister Stroke Other Thoracic aortic aneurysm Denies family history of Ovarian cancer Prostate cancer Diabetes Myocardial infarction Lung cancer Colorectal cancer Social History Smoking Status: Never smoker Age Started Using Tobacco: 16; Age Quit Using Tobacco: 45; packs per day: 0.5; Second Hand Exposure: No; Do You Dip or Chew Tobacco: No; Hx Alcohol Use: No Hx Substance Use: No Preferred Language: Albanian Communication Ability: Effective Visual Impairment: Limited Hearing Ability: Normal Assistant Professor Of Radiology Required: No Beliefs That Will Affect Care: None marital status: / Current Living Situation: Alone current occupational status: retired How many Children do You have: 5 Feels Safe at Home: Yes Childhood Exposure to Second-Hand Smoke: Yes (dad did off and on ) caffeine: Yes (coffee) Dental Care, Regularly: No Physical Activity Frequency: Daily Physical Activity Frequency Comment: walks daily Seatbelt Use: always Sunscreen Use: Yes Assistive Devices: Cane, Denture - Upper, Denture - Lower, Glasses and Walker Review of Systems Review of Systems: All systems reviewed & are unremarkable except as noted in HPI & below Physical Exam Constitutional: no acute distress Neck: normal visual inspection Respiratory: normal respiratory effort; no respiratory distress and no labored breathing Musculoskeletal: Head/Neck/Chest: normocephalic Skin: No visible rashes or lesions to exposed skin areas Neurologic: moves all extremities and awake Psychiatric: A+Ox3, euthymic affect Results & Data Vital Signs (Past 12 Hours) Vital Signs Temp Pulse Pulse Resp BP BP Pulse Ox 02/25/23 05:30 64 18 171/97 H 98 02/25/23 05:01 53 L 02/25/23 04:35 36 C L 67 20 180/82 H 97 O2 Del Method 02/25/23 05:30 Room Air 02/25/23 05:01 02/25/23 04:35 Room Air PG Care Time/CCT Total # of Minutes Spent Total Time Spent with Patient: Total time spent is greater than 50% in coordination of care (as documented) at patient's floor/unit and/or counseling patient: Coding Level of Care Code 43271 INT INP/OBS CARE 2/55MIN Diagnoses Ureteral stone with hydronephrosis N13.2 Acute UTI N39.0 Right flank pain R10.9 Nephrolithiasis N20.0
[2023-02-25] MEDS ORDERED: ONDANSETRON INJ 2 MG/ML 2 ML VIAL IV PRN (09:52)
[2023-02-25] MEDS ORDERED: ACETAMINOPHEN 325 MG TAB PO PRN (09:52)
[2023-02-25] MEDS ORDERED: DIGOXIN 125 MCG in SYRINGE 9.5 ML IV ONE (10:15)
[2023-02-25] MEDS ORDERED: VANCOMYCIN CONSULT ACTIVE PRN (10:36)
[2023-02-25] MEDS: METOPROLOL TARTRATE 1 MG/ML VIAL IV SCH ×4 (10:53→19:43)
[2023-02-25] MEDS: NSS + 20MEQ KCL 20 MEQ/1,000 ML BAG IV SCH ×2 (10:54→22:51)
[2023-02-25] MEDS ORDERED: VANCOMYCIN HCL 1,000 MG in SODIUM CHLORIDE 0.9% 250 ML IV ONE (11:15)
--- NOTE | 2023-02-25 13:06 | Pharmacy Report ---
Pharmacy PK ABX Note - Date of Service February 25, 2023 - Assessment and Plan Assessment 82 year old F receiving vancomycin/ceftriaxone for treatment of infected obstructing right ureteral stone. Plan for OR today for cystoscopy and stent placement. WBC 18.4. Pertinent microbiologic data includes: urine culture pending. Previous urine culture from 01/09 with E. faecium and Crissy albicans. Plan Vancomycin * Loading dose: 1000 mg IV x 1 * Maintenance dose: 750 mg IV every 24 hours * Regimen is predicted to achieve target AUC/MICHEAL of 400-600 mg/L.hr * Random level to be ordered if continued >48 hours Pharmacy will continue to follow and will adjust dose/frequency as necessary. Thank you. Pharmacy has transitioned to AUC monitoring for vancomycin. AUC/MICHEAL is the preferred PK/PD target and is associated with decreased risk of nephrotoxicity compared to traditional trough targets.
--- NOTE | 2023-02-25 14:36 | Anesthesiology Consultation ---
Date of Service February 25, 2023 Assessment & Plan ASA ASA4 Proposed Anesthesia Anesthesia Type: MAC Risk / Benefits Reviewed With: PT / POA / Parent / Guardian, Accepts Plan and Informed Consent Obtained Additional Comments: pt had icd turned off by choice History Surgery Operation Date: 02/25/23 08:50 Proposed Procedures p Cystoscopy Right Retrograde Pyelogram with Stent Placement - Gordy Zhang, DO Height/Weight Height: 5 ft 2 in Weight: 49.6 kg Allergies Allergy/AdvReac Type Severity Reaction Status Date / Time morphine AdvReac Intermediate NAUSEA Verified 01/23/23 11:39 Medications Home Medications Medication Instructions Recorded Confirmed Last Taken clopidogrel 75 mg tablet 75 mg PO QAM 04/02/22 02/25/23 01/09/23 folic acid 1 mg tablet 1 mg PO QAM 01/09/23 02/25/23 01/09/23 metoprolol succinate 100 mg 100 mg PO DAILY #30 tabs 01/11/23 02/25/23 Unknown tablet,extended release 24 hr metoprolol succinate 200 mg 200 mg PO DAILY #30 tabs 01/11/23 02/25/23 Unknown tablet,extended release 24 hr sacubitril 24 mg-valsartan 26 mg 1 tab PO BID #60 tabs 01/11/23 02/25/23 Unknown tablet (Entresto) prednisone 10 mg tablet 10 mg PO QAM PRN arthritic pain 01/18/23 02/25/23 Unknown #30 tabs digoxin 125 mcg (0.125 mg) tablet 125 mcg PO DAILY #30 tabs 01/23/23 02/25/23 Unknown apixaban 2.5 mg tablet 2.5 mg PO BID #180 tabs 02/18/23 02/25/23 Unknown dapagliflozin propanediol 10 mg 10 mg PO DAILY #90 tabs 02/22/23 Unknown tablet (Farxiga) lisinopril 10 mg tablet 10 mg PO DAILY 02/25/23 02/25/23 Unknown Active Medications Generic Name Dose Route Start Last Admin Trade Name Freq PRN Reason Stop Dose Admin Potassium Chloride/Sodium Chloride 20 meq in 1,000 mls @ 100 mls/hr 02/25/23 10:15 02/25/23 10:54 Normal Saline W/20 Meq Kcl IV 03/27/23 10:14 100 mls/hr .Q10H AAKASH Administration Insulin Aspart 0 units 11/13/23 07:30 02/25/23 13:18 Insulin Aspart Per Unit Charge SC 03/27/23 07:29 Not Given ACHS AAKASH Metoprolol Tartrate 5 mg 02/25/23 10:00 02/25/23 13:15 Metoprolol Tartrate 1 Mg/Ml Vial IV 03/27/23 09:59 5 mg Q4 AAKASH Administration Ondansetron HCl 4 mg 02/25/23 09:52 02/25/23 12:42 Ondansetron Inj 2 Mg/Ml 2 Ml Vial IV 03/27/23 09:51 4 mg Q6H PRN Administration Nausea NPO Date Last Intake of Fluids: 02/24/23 Time Last Intake of Fluids: 00:00 Date Last Intake of Solids: 02/24/23 Time Last Intake of Solids: 00:00 Past Medical History Medical History Acute UTI Right ureteral stone Exposure to COVID-19 virus Coagulopathy Acute liver failure Bacteremia Septicemia due to Gram negative organism Acute kidney injury Transaminitis Cholecystitis Bacteremia Elevated troponin Prolonged QT interval Urinary tract infection Elevated troponin Anoxic brain injury Cardiogenic shock Respiratory failure with hypoxia Cardiac arrest Ventricular fibrillation PAD (peripheral artery disease) Hyponatremia Chronic steroid use Duodenitis Pneumonia Ingrown toenail of left foot Atrial fibrillation Kidney stones GERD (gastroesophageal reflux disease) Hypertension Hyperlipidemia Osteoporosis, unspecified Permanent atrial fibrillation Anxiety GERD (gastroesophageal reflux disease) Systolic CHF Rheumatoid arthritis Atrial fibrillation with RVR Pneumonia Brain aneurysm under surveillance by PCP (stable x years) COPD (chronic obstructive pulmonary disease) Bronchitis (~03/23/19) Exercise / Class Metabolic Activity II 4-5 Yardwork/Stairs/Walk up hill Past Family History Family History Mother Arthritis Father Congestive heart failure (CHF) Aunt Breast cancer Sister Stroke Other Thoracic aortic aneurysm Denies family history of Ovarian cancer Prostate cancer Diabetes Myocardial infarction Lung cancer Colorectal cancer Past Surgical History Surgical History History of implantable cardiac defibrillator (ICD) History of lithotripsy History of thoracotomy FOR COLLAPSED LUNG - HAD WEDGE RESECTION LOWER RIGHT Hx of cataract extraction H/O foot surgery Past Anesthesia History No Hx of Anesthesia Complications and No Family Hx of Anesthesia Complications History of PONV No Hx of PONV and No Hx of Motion Sickness Social History Smoking Status: Never smoker tobacco type: cigarettes Do You Dip or Chew Tobacco: No Hx Alcohol Use: No Hx Substance Use: No substance use type: does not use Last Used Substance: Hours (ago) Review of Systems denies fever/cough/ colds/ chest pain/ SOB/ AKHIL denies AKHIL Physical Exam Vital Signs Last Vital Signs Temp 36.7 C 02/25/23 14:27 Pulse 75 02/25/23 14:27 Resp 20 02/25/23 14:27 BP 117/60 02/25/23 14:27 Pulse Ox 90 02/25/23 14:27 O2 Del Method Room Air 02/25/23 14:27 ENMT Mouth: no TMJ abnormality and no dentition abnormality Thyromental Distance: > or= 3.5 Finger Breadths Mallampati Class: II Neck neck extension not limited Respiratory normal respiratory effort; no respiratory distress Auscultation: lungs clear to auscultation bilaterally Cardiovascular Rate/Rhythm: regular rate and regular rhythm Neurologic moves all extremities Psychiatric Orientation: alert and oriented x 3 Testing Laboratory Results 02/25/23 04:48 02/25/23 04:48 PT 11.5 Seconds (9.0-12.0) 02/25/23 04:48 INR 1.1 (0.9-1.1) 02/25/23 04:48 APTT 25.1 Seconds (21.0-31.0) 02/25/23 04:48 Urine Color Yellow 02/25/23 05:50 Urine Appearance Cloudy (Clear) A 02/25/23 05:50 Urine pH 6.0 (4.5-7.5) 02/25/23 05:50 Ur Specific [place] 1.026 (1.000-1.030) 02/25/23 05:50 Urine Protein 1+ (Negative) H 02/25/23 05:50 Urine Glucose (UA) Negative (Negative) 02/25/23 05:50 Urine Ketones Trace (Negative) H 02/25/23 05:50 Urine Nitrite Positive (Negative) A 02/25/23 05:50 Ur Leukocyte Esterase 2+ (Negative) H 02/25/23 05:50 Urine WBC (Auto) >30 /hpf (0-5) H 02/25/23 05:50 Urine RBC (Auto) 0-4 /hpf (0-4) 02/25/23 05:50 U Hyaline Cast (Auto) 5-10 /lpf (0-5) H 02/25/23 05:50 U Epithel Cells (Auto) >30 /lpf (0-5) H 02/25/23 05:50 Urine Bacteria (Auto) 2+ (Negative) H 02/25/23 05:50 02/25/23 02/25/23 13:17 07:57 POC Glucose 99 147 H
[2023-02-25] MEDS ORDERED: fentaNYL citrate PF 100 MCG/2 ML VIAL ONE (15:34)
[2023-02-25] MEDS ORDERED: LIDOCAINE 2% 2 ML VIAL/AMP(20MG/ML) INFIL ONE (15:37)
[2023-02-25] MEDS ORDERED: PROPOFOL IV EMULSION 10 MG/ML 20 ML VIAL IV ONE (15:37)
[2023-02-25] MEDS ORDERED: DIATRIZOATE MEGLUMINE 30% 100ML VIAL INSTIL ONE (15:54)
--- NOTE | 2023-02-25 15:54 | Operative Report ---
[facility] Post Operative Report Pre & Post Diagnosis Obstructing Right Stone Same Operation Date: 02/25/23 08:50 <No data on this case meets the specified criteria> I identified the patient and participated in the time-out.: Yes Procedure Cystoscopy with Right retrograde pyelogram, aspiration of urine, and stent placement Operation Date: 02/25/23 08:50 <No data on this case meets the specified criteria> Surgeon Gordy Zhang, II, DO Coat Fitter None Estimated Blood Loss 1 Findings Consistent with Post-Op Diagnosis Stent placed in good position. Large debris in kidney with dark purple/old appearing blood. Specimens Urine for Culture Drains 4.8 Fr x 24 Right Anesthesia Type MAC Complications none Disposition Disposition: Recovery Room Indications Patient with obstruction. Risks and benefits discussed at length. Description of Procedure Patient was consented and brought back to the operating room. Patient was placed under anesthesia in the supine position and moved to the dorsal lithotomy position. Patient was prepped and draped in the regular sterile fashion. A time out was completed. A 30degree Cystoscope was placed into the bladder and the entire bladder was examined. The UO's were identified. The UO was cannulized with a catheter and advanced to the renal pelvis. Debris was noted to drain from the kidney. Urine was aspirated and found to be dark purple/old appearing blood and debris. The urine was sent for culture and a retrograde pyelogram was completed. A wire was then placed. With the wire in place, a 6 Fr Double J stent was placed. It was confirmed with fluoroscopy. With the stent in place, the bladder was emptied. The scope was removed. The patient was cleaned, aroused from anesthesia, and transferred to the pacu in stable condition having tolerated the procedure well with no complications. I was present and participated in all aspects of the procedure. The patient will be monitored in the PACU until transferred. Likely antibiotics for at least 7 days with plan for possible stone intervention next week. I attest to the content of the Intraoperative Record and any orders documented therein. Any exceptions are noted below.
--- NOTE | 2023-02-25 16:07 | Fluoroscopy Report ---
FL retrograde includes kub CLINICAL HISTORY: RT STENTright-sided cystourethrogram COMPARISON STUDY: CT 02/25/2023 FLUOROSCOPY TIME: 8.7 seconds FLUOROSCOPY IMAGES: 2 EXPOSURE DOSE: 1.24 mGy FINDINGS: Persistent right-sided hydronephrosis. Right renal and ureteral calculi better seen on the comparison CT. A right-sided ureteral stent appears to be in satisfactory positioning. IMPRESSION: Fluoroscopic assistance as above. ACT 112: Negative or not required by law. Electronically signed by: Gabino Rosales M.D. 02/25/2023 4:06 PM
[2023-02-25] MEDS ORDERED: ATROPINE SULFATE 0.1 MG/ML 10ML SYR IV PRN (16:25)
[2023-02-25] MEDS ORDERED: ePHEDrine sulfate 50 MG/ML AMP IV PRN (16:25)
--- NOTE | 2023-02-25 16:25 | Anesthesiology Progress Note ---
Date of Service February 25, 2023 Anesthesia Post Procedure Vital Signs Vital Signs: Temp Pulse Pulse Resp BP BP Pulse Ox 02/25/23 16:15 66 20 112/57 L 95 02/25/23 16:05 66 16 99/59 L 95 02/25/23 15:55 98.4 F 78 16 96/50 L 96 02/25/23 14:27 98.1 F 75 20 117/60 90 02/25/23 13:22 69 16 130/77 91 02/25/23 13:15 71 130/77 02/25/23 12:01 59 L 136/66 02/25/23 11:20 68 16 150/69 H 95 02/25/23 11:19 02/25/23 11:19 68 16 150/69 H 95 02/25/23 10:54 60 02/25/23 10:53 65 139/77 02/25/23 10:40 66 18 139/77 94 02/25/23 09:07 67 15 174/79 H 96 02/25/23 07:59 61 20 183/68 H 96 02/25/23 05:30 64 18 171/97 H 98 02/25/23 05:01 53 L 02/25/23 04:35 96.8 F L 67 20 180/82 H 97 Pulse Ox O2 Del Method O2 Flow Rate 02/25/23 16:15 Nasal Cannula 3 02/25/23 16:05 Nasal Cannula 3 02/25/23 15:55 Nasal Cannula 3 02/25/23 14:27 Room Air 02/25/23 13:22 Room Air 02/25/23 13:15 02/25/23 12:01 02/25/23 11:20 Room Air 02/25/23 11:19 95 02/25/23 11:19 Room Air 02/25/23 10:54 02/25/23 10:53 02/25/23 10:40 Room Air 02/25/23 09:07 Nebulizer 02/25/23 07:59 Room Air 02/25/23 05:30 Room Air 02/25/23 05:01 02/25/23 04:35 Room Air Pain Intensity Right Flank: Pain Intensity: 9 Transfer of Care Handoff Completed per policy Notes Mental Status: alert / awake / arousable and participated in evaluation Patient Amnestic to Procedure: Yes Nausea / Vomiting: adequately controlled Pain: adequately controlled Airway Patency, RR, SpO2: stable & adequate BP & HR: stable & adequate Hydration State: stable & adequate Anesthetic Complications: no major complications apparent and Pt Satisfied with anesthetic care
--- NOTE | 2023-02-25 17:08 | Hospitalist Progress Note ---
Date of Service February 25, 2023 Assessment & Plan (1) Right ureteral stone: Plan: Right ureteral stone with CV angle tenderness and concern for urinary tract infection. Cultures from December did grow resistant Enterococcus. Patient be placed on vancomycin and continued on ceftriaxone pending further culture results. Patient taken to the operating room today with stone moved into the renal pelvis, ureteral stent placed. All debris and blood removed from the kidney. Plans for 1 week of antibiotics and follow-up with outpatient urology for definitive stone treatment for acute UTI present on admission (2) Atrial fibrillation: Plan: Issue atrial fibrillation and pacemaker placement in the past. Patient requested her pacemaker be discontinued as she her wishes are to avoid aggressive care if she were to decline. With regard to her atrial fibrillation apixaban was held for the procedure she typically takes metoprolol 300 mg a day. Previously amiodarone was stopped due to hepatotoxicity there is a discussion and office visit from 01/23/2023 of adding digoxin to her regiment History of systolic heart failure she takes Entresto, there is discussion of adding Farxiga at an office visit from 01/23/2023. (3) Rheumatoid arthritis: (4) History of implantable cardiac defibrillator (ICD): Plan: Reportedly the pacemaker and ICD function of this was asked to be turned off and her last EP visit with Dr. Jacob (5) Acute UTI: Plan Right-sided kidney stone/UTI- Patient reports having had a previous kidney stone about [address] abdomen pelvis still pending at this time, but looks to show a right-sided kidney stone Patient's pain is on the right side NPO Follow urine culture and sensitivity Continue ceftriaxone 1 g IV daily begun in the ED NSS + KCl 20 mEq at 100 mils per hour Zofran 4 mg IV every 6 hours as needed Acetaminophen 1 g IV every 8 hours as needed for mild pain or fever Morphine sulfate 2 mg IV every 3 hours as needed for moderate pain Morphine sulfate 4 mg IV every 3 hours as needed for severe pain Consult urology, who aware of the patient Atrial fibrillation/hypertension/presence of ICD- While n.p.o., hold metoprolol succinate 300 mg daily and digoxin 125 mcg daily Give a dose of Lopressor 5 mg IV this morning, and every 4 hours with hold parameters Give a single dose of digoxin 125 mcg IV this morning Hold apixaban, clopidogrel and Entresto until postprocedure Diabetes mellitus- Hold dapagliflozin propanediol Placed on Accu-Cheks with NovoLog SSI Rheumatoid arthritis- Takes prednisone 10 mg as needed Does not appear to need stress dosing at this time, monitor closely Admission and Anticipated Discharge Date Admission Date: February 25, 2023 Results & Data Results & Data Vital Signs (Past 12 Hours) Vital Signs Temp Pulse Pulse Resp BP BP Pulse Ox 02/25/23 17:05 73 18 104/52 L 96 02/25/23 16:50 78 20 105/50 L 93 02/25/23 16:35 98.8 F 76 18 106/53 L 95 02/25/23 16:25 70 22 92/54 L 95 02/25/23 16:15 66 20 112/57 L 95 02/25/23 16:05 66 16 99/59 L 95 02/25/23 15:55 98.4 F 78 16 96/50 L 96 02/25/23 14:27 98.1 F 75 20 117/60 90 02/25/23 13:22 69 16 130/77 91 02/25/23 13:15 71 130/77 02/25/23 12:01 59 L 136/66 02/25/23 11:20 68 16 150/69 H 95 02/25/23 11:19 02/25/23 11:19 68 16 150/69 H 95 02/25/23 10:54 60 02/25/23 10:53 65 139/77 02/25/23 10:40 66 18 139/77 94 02/25/23 09:07 67 15 174/79 H 96 02/25/23 07:59 61 20 183/68 H 96 02/25/23 05:30 64 18 171/97 H 98 Pulse Ox O2 Del Method O2 Flow Rate 02/25/23 17:05 Nasal Cannula 3 02/25/23 16:50 Nasal Cannula 3 02/25/23 16:35 Nasal Cannula 3 02/25/23 16:25 Nasal Cannula 3 02/25/23 16:15 Nasal Cannula 3 02/25/23 16:05 Nasal Cannula 3 02/25/23 15:55 Nasal Cannula 3 02/25/23 14:27 Room Air 02/25/23 13:22 Room Air 02/25/23 13:15 02/25/23 12:01 02/25/23 11:20 Room Air 02/25/23 11:19 95 11/13/23 11:19 Room Air 02/25/23 10:54 02/25/23 10:53 02/25/23 10:40 Room Air 02/25/23 09:07 Nebulizer 02/25/23 07:59 Room Air 02/25/23 05:30 Room Air PG Care Time/CCT Total # of Minutes Spent Total Time Spent with Patient: Total time spent is greater than 50% in coordination of care (as documented) at patient's floor/unit and/or counseling patient: Coding Level of Care Code None Diagnoses Right ureteral stone N20.1 Atrial fibrillation I48.91 Rheumatoid arthritis involving multiple sites with positive rheumatoid factor M05.79 Rheumatoid arthritis location: multiple sites Rheumatoid factor presence: with rheumatoid factor History of implantable cardiac defibrillator (ICD) Z95.810 Acute UTI N39.0 (3) Rheumatoid arthritis Rheumatoid arthritis location: multiple sites Rheumatoid factor presence: with rheumatoid factor Qualified Code(s): M05.79 - Rheumatoid arthritis with rheumatoid factor of multiple sites without organ or systems involvement
[2023-02-26] MEDS: METOPROLOL TARTRATE 1 MG/ML VIAL IV SCH ×5 (00:15→18:33)
[2023-02-26] MEDS: cefTRIAXone SODIUM 1,000 MG in DEXTROSE 5 % MINI-B 50 ML IV SCH (06:04)
--- NOTE | 2023-02-26 07:50 | Urology Progress Note ---
Date of Service February 26, 2023 Assessment & Plan (1) Ureteral stone with hydronephrosis: (2) Acute UTI: (3) Right flank pain: (4) Nephrolithiasis: Plan 82yo/F admitted with an obstructing distal right ureteral stone and concern for infection POD #1 s/p Cystoscopy with Right retrograde pyelogram, aspiration of urine, and stent placement - Overall feeling much better, tolerating the ureteral stent with minimal bother. - Afebrile and hemodynamically stable. - Labs reviewed -WBC 20.40, hemoglobin 12.3, creatinine 1.42. Continue to trend. - Urinalysis was suspicious for infection, cultures pending. - Continue antibiotics and tailor as culture data becomes available. - Continue supportive care and pain management as needed. - We will arrange outpatient follow-up with our service for definitive stone management after the infection has been treated. - Expected clinical course reviewed with patient, all questions were answered. - Urology will follow peripherally. Please call with any further questions/concerns. Admission and Anticipated Discharge Date Admission Date: February 25, 2023 Subjective Patient examined at bedside this AM. Awake, resting in bed on arrival. No acute distress. Overall feeling much better. Denies fevers, chills, nausea, vomiting. Tolerating the ureteral stent well. Some mild hematuria. Denies dysuria. Denies any significant pain or discomfort. Review of Systems Constitutional: as per Subjective / HPI Gastrointestinal: as per Subjective / HPI Genitourinary: as per Subjective / HPI Physical Exam Constitutional: no acute distress Respiratory: no respiratory distress and no labored breathing Skin: No visible rashes or lesions to exposed skin areas Neurologic: moves all extremities and awake Psychiatric: A+Ox3, euthymic affect Results & Data Vital Signs (Past 12 Hours) Vital Signs Temp Pulse Pulse Resp BP Pulse Ox O2 Del Method 02/26/23 05:36 60 02/26/23 02:57 37.1 C 79 15 145/68 H 91 Room Air 02/26/23 00:15 59 L 02/25/23 23:18 36.7 C 59 L 14 115/64 94 Room Air 02/25/23 22:00 61 PG Care Time/CCT Total # of Minutes Spent Total Time Spent with Patient: Total time spent is greater than 50% in coordination of care (as documented) at patient's floor/unit and/or counseling patient: Coding Level of Care Code 19134 SUB INP/OBS CARE 235MIN Diagnoses Ureteral stone with hydronephrosis N13.2 Acute UTI N39.0 Right flank pain R10.9 Nephrolithiasis N20.0
[2023-02-26 08:45] LABS: Albumin Globulin Ratio 1.2 (0.9-2); Albumin Level 2.7 gm/dl (3.4-5.0); Bilirubin,Total 0.7 mg/dl (0.2-1.0); Calcium 8.2 mg/dl (8.6-10.3); Creatinine Clr Calc Pharmacy 22.4 ml/min; Est GFR (African American) 39.8 ml/min; Est GFR (Non-African American) 34.3 ml/min; Globulin 2.2 gm/dl (2.5-4.0); Magnesium 1.7 mg/dl (1.7-2.4); Potassium 4.5 mmol/L (3.5-5.1); Total Protein 4.9 gm/dl (6.0-8.3)
[2023-02-26] MEDS: INSULIN ASPART PER UNIT CHARGE SC SCH ×4 (08:48→21:00)
[2023-02-26] MEDS ORDERED: VANCOMYCIN HCL 750 MG in SODIUM CHLORIDE 0.9% 250 ML IV SCH (09:00)
[2023-02-26 09:21] LABS: Basophils # (auto) 0.06 K/uL (0.00-0.20); Basophils % (auto) 0.3 %; Eosinophils # (auto) 0.18 K/uL (0.00-0.50); Eosinophils % (auto) 0.9 %; Hematocrit (blood only) 39.9 % (37.0-47.0); Hemoglobin 12.3 g/dl (12.0-16.0); Immature Granulocytes # (auto) 0.21 K/uL (0.01-0.20); Lymphocytes # (auto) 1.49 K/uL (1.20-3.40); Lymphocytes % (auto) 7.3 %; Mean Corpuscular Hemoglobin 29.1 pg (25.0-34.0); Mean Corpuscular Hgb Conc 30.8 g/dL (32.0-36.0); Mean Corpuscular Volume 94.5 fL (80.0-100.0); Monocytes # (auto) 1.23 K/uL (0.11-0.59); Neutrophils # (auto) 17.23 K/uL (1.40-6.50); Neutrophils % (auto) 84.5 %; Platelet Count 146 K/uL (130-400); RDW Coefficient of Variation 17.3 % (11.5-14.5); RDW Standard Deviation 60.5 fL (36.4-46.3); Red Blood Count 4.22 M/uL (4.20-5.40)
[2023-02-26] MEDS: NSS + 20MEQ KCL 20 MEQ/1,000 ML BAG IV SCH ×2 (09:35→20:06)
[2023-02-26] MEDS ORDERED: DIGOXIN 0.125 MG/2.5 ML UDP PO SCH (16:00)
--- NOTE | 2023-02-26 18:41 | Hospitalist Progress Note ---
Date of Service February 26, 2023 Assessment & Plan (1) Right ureteral stone: Plan: Right ureteral stone with CV angle tenderness and concern for urinary tract infection. Cultures from December did grow resistant Enterococcus. Patient be placed on vancomycin and continued on ceftriaxone pending further culture results. Patient taken to the operating room 02/25/23 with stone moved into the renal pelvis, ureteral stent placed. All debris and blood removed from the kidney. Plans for 1 week of antibiotics and follow-up with outpatient urology for definitive stone treatment for acute UTI present on admission prelimary culture is Gram negative on ceftriaxone (2) Atrial fibrillation: Plan: Issue atrial fibrillation and VT, AICD/ pacemaker placement in the past. Patient requested her pacemaker be discontinued as she her wishes are to avoid aggressive care if she were to decline. With regard to her atrial fibrillation apixaban was held for the procedure she typically takes metoprolol 300 mg a day. Previously amiodarone was stopped due to hepatotoxicity there is a discussion and office visit from 01/23/2023 of adding digoxin to her regiment Apixiban is on hold with procedure and will restart only to hold again prior to office procedure at least by 2 days prior History of systolic heart failure she takes Entresto, restarted in pm 02/26/23 there is discussion of adding Farxiga at an office visit from 01/23/2023. (3) Rheumatoid arthritis: Plan: deformities, no meds at present (4) History of implantable cardiac defibrillator (ICD): Plan: Reportedly the pacemaker and ICD function of this was asked to be turned off and her last EP visit with Dr. Jacob Plan Diabetes mellitus- Hold dapagliflozin propanediol Placed on Accu-Cheks with NovoLog SSI Admission and Anticipated Discharge Date Admission Date: February 25, 2023 Subjective pt is awake and alert good pain control, no flank or back pain lower blood pressures, no arrythmia seen appreciate nursing completing med recc Physical Exam Physical Exam: awake and alert cardiac exam is regular with controlled rate lungs are clear RA changes to hands Results & Data Results & Data Vital Signs (Past 12 Hours) Vital Signs Temp Pulse Resp BP Pulse Ox O2 Del Method 02/26/23 15:33 98.4 F 80 18 154/75 H 94 Room Air 02/26/23 14:20 59 L 132/75 02/26/23 11:20 98.6 F 86 18 150/76 H 95 Room Air 02/26/23 08:24 98.1 F 63 18 128/71 94 Room Air Laboratory Results reviewed cbc reviewed chemistry PG Care Time/CCT Total # of Minutes Spent Total Time Spent with Patient: Total time spent is greater than 50% in coordination of care (as documented) at patient's floor/unit and/or counseling patient: Coding Level of Care Code 54305 SUB INP/OBS CARE 3/50MIN Diagnoses Right ureteral stone N20.1 Atrial fibrillation I48.91 Rheumatoid arthritis involving multiple sites with positive rheumatoid factor M05.79 Rheumatoid arthritis location: multiple sites Rheumatoid factor presence: with rheumatoid factor History of implantable cardiac defibrillator (ICD) Z95.810 (3) Rheumatoid arthritis Rheumatoid arthritis location: multiple sites Rheumatoid factor presence: with rheumatoid factor Qualified Code(s): M05.79 - Rheumatoid arthritis with rheumatoid factor of multiple sites without organ or systems involvement
[2023-02-26] MEDS: METOPROLOL TARTRATE 25 MG TAB PO SCH (20:07)
[2023-02-26] MEDS: VALSARTAN/SACUBITRIL 26/24MG TAB PO SCH (20:07)
[2023-02-26] MEDS ORDERED: SODIUM CHLORIDE 0.9% 1,000 ML IV SCH (21:00)
[2023-02-27] MEDS: cefTRIAXone SODIUM 1,000 MG in DEXTROSE 5 % MINI-B 50 ML IV SCH (06:09)
[2023-02-27 06:23] LABS: Basophils # (auto) 0.05 K/uL (0.00-0.20); Basophils % (auto) 0.3 %; Eosinophils # (auto) 0.15 K/uL (0.00-0.50); Eosinophils % (auto) 0.9 %; Hematocrit (blood only) 42.3 % (37.0-47.0); Hemoglobin 12.7 g/dl (12.0-16.0); Immature Granulocytes # (auto) 0.18 K/uL (0.01-0.20); Immature Granulocytes % (auto) 1.1 %; Lymphocytes # (auto) 1.54 K/uL (1.20-3.40); Lymphocytes % (auto) 9.5 %; Mean Corpuscular Volume 96.6 fL (80.0-100.0); Monocytes # (auto) 0.85 K/uL (0.11-0.59); Monocytes % (auto) 5.2 %; Neutrophils # (auto) 13.52 K/uL (1.40-6.50); Platelet Count 122 K/uL (130-400); RDW Coefficient of Variation 17.4 % (11.5-14.5); RDW Standard Deviation 61.8 fL (36.4-46.3); Red Blood Count 4.38 M/uL (4.20-5.40); White Blood Count 16.29 K/ul (4.8-10.8)
[2023-02-27 06:41] LABS: Albumin Level 2.8 gm/dl (3.4-5.0); Bilirubin,Total 0.8 mg/dl (0.2-1.0); Calcium 8.4 mg/dl (8.6-10.3); Magnesium 1.6 mg/dl (1.7-2.4); Potassium 4.3 mmol/L (3.5-5.1)
[2023-02-27 06:47] LABS: Albumin Globulin Ratio 1.2 (0.9-2); BUN Creatinine Ratio 19.6 (10-20); Creatinine Clr Calc Pharmacy 30.6 ml/min; Est GFR (African American) 59.3 ml/min; Est GFR (Non-African American) 51.2 ml/min; Globulin 2.3 gm/dl (2.5-4.0); Total Protein 5.1 gm/dl (6.0-8.3)
[2023-02-27] MEDS: INSULIN ASPART PER UNIT CHARGE SC SCH ×2 (08:22→12:18)
[2023-02-27] MEDS: METOPROLOL TARTRATE 25 MG TAB PO SCH (08:29)
[2023-02-27] MEDS: VALSARTAN/SACUBITRIL 26/24MG TAB PO SCH (08:30)
--- NOTE | 2023-02-27 08:43 | Hospitalist Progress Note ---
Date of Service February 27, 2023 Assessment & Plan (1) Right ureteral stone: Plan: Right ureteral stone with CV angle tenderness and concern for urinary tract infection. Despite worrisome previous urine culture results patient grew Proteus mirabilis which is pansensitive antibiotics have been streamlined to ceftriaxone intravenously with good oral choices to continue at time of discharge Patient taken to the operating room 02/25/23 with stone moved into the renal pelvis, ureteral stent placed. All debris and blood removed from the kidney. Plans for 1 week of antibiotics and follow-up with outpatient urology for definitive stone treatment for acute UTI present on admission (2) Atrial fibrillation: Plan: Issue atrial fibrillation and VT, AICD/ pacemaker placement in the past. Patient requested her pacemaker be discontinued as she her wishes are to avoid aggressive care if she were to decline. With regard to her atrial fibrillation apixaban was held for the procedure she typically takes metoprolol 300 mg a day. Previously amiodarone was stopped due to hepatotoxicity there is a discussion and office visit from 01/23/2023 of adding digoxin to her regiment Apixiban is on hold with procedure and will restart only to hold again prior to office procedure at least by 2 days prior History of systolic heart failure she takes Entresto, restarted in pm 02/26/23 there is discussion of adding Farxiga at an office visit from 01/23/2023. (3) Rheumatoid arthritis: Plan: deformities, no meds at present (4) History of implantable cardiac defibrillator (ICD): Plan: Reportedly the pacemaker and ICD function of this was asked to be turned off and her last EP visit with Dr. Jacob Plan Diabetes mellitus- Hold dapagliflozin propanediol Placed on Accu-Cheks with NovoLog SSI Admission and Anticipated Discharge Date Admission Date: February 25, 2023 Results & Data Results & Data Vital Signs (Past 12 Hours) Vital Signs Temp Pulse Pulse Resp BP Pulse Ox O2 Del Method 02/27/23 08:24 76 02/27/23 07:20 98.2 F 69 20 179/79 H 91 Nasal Cannula 02/27/23 02:54 98.2 F 77 20 183/73 H 91 Room Air 02/27/23 01:06 74 185/80 H 02/26/23 23:16 97.9 F 69 20 189/72 H 91 Nasal Cannula 02/26/23 22:05 69 O2 Flow Rate 11/15/23 08:24 02/27/23 07:20 1 02/27/23 02:54 02/27/23 01:06 02/26/23 23:16 1 02/26/23 22:05 PG Care Time/CCT Total # of Minutes Spent Total Time Spent with Patient: Total time spent is greater than 50% in coordination of care (as documented) at patient's floor/unit and/or counseling patient: Coding Diagnoses Right ureteral stone N20.1 Atrial fibrillation I48.91 Rheumatoid arthritis involving multiple sites with positive rheumatoid factor M05.79 Rheumatoid arthritis location: multiple sites Rheumatoid factor presence: with rheumatoid factor History of implantable cardiac defibrillator (ICD) Z95.810 (3) Rheumatoid arthritis Rheumatoid arthritis location: multiple sites Rheumatoid factor presence: with rheumatoid factor Qualified Code(s): M05.79 - Rheumatoid arthritis with rheumatoid factor of multiple sites without organ or systems involvement
--- NOTE | 2023-02-27 08:57 | Urology Progress Note ---
Date of Service February 27, 2023 Assessment & Plan (1) Ureteral stone with hydronephrosis: (2) Acute UTI: (3) Right flank pain: (4) Nephrolithiasis: Plan 82yo/F admitted with an obstructing distal right ureteral stone and concern for infection POD #2 s/p Cystoscopy with Right retrograde pyelogram, aspiration of urine, and stent placement - Overall feeling well, tolerating the ureteral stent with minimal bother. - Afebrile and hemodynamically stable. - Labs reviewed -WBC 16.29, hemoglobin 12.7, creatinine 1.02. - Urine culture preliminary with Proteus and urine culture aspirate from right ureter preliminary with Proteus. - Continues on ceftriaxone, which is sensitive on culture. - Plan to D/C when medically stable per primary team with course of appropriate PO antibiotics. - Will arrange outpatient follow-up with our service for definitive stone management after the infection has been treated. - Expected clinical course reviewed with patient, all questions were answered. - Urology will sign-off. Please contact us with additional questions, concerns or changes in patient status. Admission and Anticipated Discharge Date Admission Date: February 25, 2023 Subjective Patient examined at bedside this AM. Awake, resting in bed on arrival. No acute distress. Overall feels good. Denies fevers, chills, nausea, vomiting. Tolerating the ureteral stent well. Denies hematuria or dysuria. Denies any significant pain or discomfort. Review of Systems Constitutional: as per Subjective / HPI Gastrointestinal: as per Subjective / HPI Genitourinary: as per Subjective / HPI Physical Exam Constitutional: no acute distress Neck: normal visual inspection Respiratory: normal respiratory effort; no respiratory distress and no labored breathing Musculoskeletal: Head/Neck/Chest: normocephalic Neurologic: moves all extremities and awake Psychiatric: A+Ox3, euthymic affect Results & Data Vital Signs (Past 12 Hours) Vital Signs Temp Pulse Pulse Resp BP Pulse Ox O2 Del Method 02/27/23 08:24 76 02/27/23 07:20 36.8 C 69 20 179/79 H 91 Nasal Cannula 02/27/23 02:54 36.8 C 77 20 183/73 H 91 Room Air 02/27/23 01:06 74 185/80 H 02/26/23 23:16 36.6 C 69 20 189/72 H 91 Nasal Cannula 02/26/23 22:05 69 O2 Flow Rate 02/27/23 08:24 02/27/23 07:20 1 02/27/23 02:54 02/27/23 01:06 02/26/23 23:16 1 02/26/23 22:05 PG Care Time/CCT Total # of Minutes Spent Total Time Spent with Patient: Total time spent is greater than 50% in coordination of care (as documented) at patient's floor/unit and/or counseling patient: Coding Level of Care Code 56121 SUB INP/OBS CARE 2/35MIN Diagnoses Ureteral stone with hydronephrosis N13.2 Acute UTI N39.0 Right flank pain R10.9 Nephrolithiasis N20.0
[2023-02-27] MEDS ORDERED: FOLIC ACID 1 MG TAB PO SCH (09:00)
[2023-02-27] MEDS ORDERED: APIXABAN 2.5 MG TAB PO SCH (09:00)
[2023-02-27] MEDS: MAGNESIUM SULFATE / D5W 1 GM/100 ML BAG IV SCH ×2 (10:16→12:00)
--- NOTE | 2023-02-27 15:53 | Discharge Summary ---
Date of Service February 27, 2023 Admission HPI Per Admitting Provider The patient is an 82-year-old female with a past medical history including atrial fibrillation with rapid ventricular response, urine tract infections, kidney stone history, rheumatoid arthritis, atrial fibrillation, superior mesenteric artery stenosis, history of ICD, PAD, chronic anticoagulation with apixaban, left lower extremity ischemia, right lower extremity ischemia, COPD, cardiomyopathy and brain aneurysm. 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 Principal Diagnosis Right renal colic with associated urinary tract infection present on admission Status post cystoscopy retrograde pyelogram and stenting Proteus mirabilis urinary tract infection Permanent atrial fibrillation controlled ventricular rate Discharge Exam Awake and alert and bright no focal complaints or problems she is easily seen deformities of rheumatoid arthritis. Card exam is irregular and bradycardic lungs are clear Discharge Data Allergies Allergy/AdvReac Type Severity Reaction Status Date / Time morphine AdvReac Intermediate NAUSEA Verified 01/23/23 11:39 Consultations 02/25/23 06:32 ED Decision to Admit Stat 02/25/23 09:52 Consult Urology Routine Procedures Performed Operation Date: 02/25/23 08:50 Actual Procedures p Cystoscopy, Right Retrograde Pyelogram, Aspiration of urine from right kidney, with right ureteral stent placement(Right) - Gordy Zhang, Ordered Studies 02/25/23 04:44 CT abd pelvis wo con Stat 02/25/23 13:30 FL retrograde includes kub Routine Hospital Course (1) Right ureteral stone: Right ureteral stone with CV angle tenderness and concern for urinary tract infection. Despite worrisome previous urine culture results patient grew Proteus mirabilis which is pansensitive antibiotics have been streamlined to ceftriaxone intravenously with sensitivities to cephalexin transition to Keflex at time of discharge for 7 days Patient taken to the operating room 02/25/23 with stone moved into the renal pelvis, ureteral stent placed. All debris and blood removed from the kidney. Plans for 1 week of antibiotics and follow-up with outpatient urology for definitive stone treatment for acute UTI present on admission, instructions were given the patient that she will need to be stopped her apixaban. I did personally speak with urology and they feel that since the manipulation of her stone will be a 1 week or more from discharge that we should restart the apixaban (2) Atrial fibrillation: Permanent atrial fibrillation and VT, AICD/ pacemaker placement in the past. Patient requested her pacemaker be discontinued as she her wishes are to avoid aggressive care if she were to decline. With regard to her atrial fibrillation apixaban was held for the procedure she typically takes metoprolol 300 mg a day. Previously amiodarone was stopped due to hepatotoxicity there is a discussion and office visit from 01/23/2023 of adding digoxin to her regiment With institution of digoxin 0.125 patient is needed for lower amounts of metoprolol to control her heart rate in fact she has been in the 50s and 60s only on 25 twice daily despite prehospital metoprolol being 300. This was verbally communicated to the patient and a new prescription for metoprolol to tartrate 25 was sent to the pharmacy to be taken twice daily at this time. History of systolic heart failure she takes Entresto, restarted in pm 02/26/23 During her last cardiology visit the cardiology team was adding Farxiga, therefore Farxiga will be placed on her med reconciliation to be started at discharge (3) Rheumatoid arthritis: deformities, no meds at present (4) History of implantable cardiac defibrillator (ICD): Reportedly the pacemaker and ICD function of this was asked to be turned off and her last EP visit with Dr. Jacob Plan Diabetes mellitus- Resume dapagliflozin Total Time Total Time Spent Total Time Spent (In Minutes): Discharge third Discharge Plan Discharge Items Patient Disposition: Home - Self-Care Reason For Visit: UTI, KIDNEY STONE Discharge Diagnosis: right sided kidney stone proteus mirabilis uti poa atrial fibrillation Activity: Resume your previous activity Non-emergency contact: Primary Care Provider Call non-emergency contact if: your symptoms worsen Follow-up/Referrals: Luisa Holcomb PA-C [Primary Care Provider] - 03/11/23 11:00 am Diet: Regular Addtl Attending Provider Instructions: while you are here you required much less of your metoprolol, this maybe due to the digoxin that Dr Sams started on you a new Rx will be sent into the pharmacy, complete one week or extended course if Urology recommends restart your apixaban, and follow directions on how to hold it before your next urological procedure Addtl Watch Crystal Molder Provider Instructions: The urology office will contact you to arrange a follow-up visit. Please call our office at [phone] with any questions, concerns or need to reschedule appointments for any reason. We are happy to assist you. While you have a ureteral stent in place: Some discomfort is normal. Certain movements may trigger pain or a feeling that you need to urinate. You may also feel mild soreness or pressure before or during urination. Your urine may be slightly pink or red. This is due to bleeding caused by minor irritation from the stent. This may happen on and off while you have the stent, it is not harmful and is to be expected. Medication to help minimize discomfort or bladder spasms, or to prevent infection may be prescribed. Take this as directed. Drink plenty of fluids to help flush out your urinary tract. When to call [facility] at [phone]: Your urine contains heavy blood clots or you are unable to urinate. You are constantly leaking urine. Fever of 101F or higher, chills, nausea, or vomiting. Your pain is not relieved with medication. The end of the stent comes out of your urethra. Pending Studies at Discharge: No Stand-Alone Forms: My [facility], Smoking Cessation Medications and DC Order Prescriptions: New metoprolol tartrate 25 mg Tablet 25 mg PO BID Qty: 60 5RF cephalexin 500 mg capsule 500 mg PO Q6H 7 Days Qty: 28 0RF Continued apixaban 2.5 mg tablet 2.5 mg PO BID Qty: 180 3RF Farxiga 10 mg tablet 10 mg PO DAILY Qty: 90 3RF clopidogrel 75 mg tablet 75 mg PO QAM prednisone 10 mg tablet 10 mg PO QAM PRN (Reason: arthritic pain) Qty: 30 1RF folic acid 1 mg tablet 1 mg PO QAM Entresto 24-26 mg tablet 1 tab PO BID Qty: 60 5RF Changed digoxin 125 mcg (0.125 mg) tablet 0.125 mg PO DAILY Qty: 30 3RF Discontinued metoprolol succinate 200 mg tablet extended release 24 hr 200 mg PO DAILY Qty: 30 5RF Rx Instructions: to be taken with 100mg to make 300mg daily metoprolol succinate 100 mg tablet extended release 24 hr 100 mg PO DAILY Qty: 30 5RF Rx Instructions: to be taken with 200mg to make 300mg daily Discharge Orders: Discharge Order (Routine); Ordered 02/27/23 Ordered By: Jose Manuel West Admission Data Admit Date/Time: 02/25/23 06:53 Attending Provider: Jose Manuel West Admit Provider: Sam Lomax Primary Care Provider: Luisa Holcomb Other Providers: Sam Lomax; Darwin Chapman Other Interventions: Discharge Summary Assessment (RN) Last Done: 02/27/23 14:45 Coding Level of Care Code 09813 INP/OBS DISCH >30 MIN Diagnoses Right ureteral stone N20.1 Atrial fibrillation I48.91 Rheumatoid arthritis involving multiple sites with positive rheumatoid factor M05.79 Rheumatoid arthritis location: multiple sites Rheumatoid factor presence: with rheumatoid factor History of implantable cardiac defibrillator (ICD) Z95.810
== END 2023-02-27 15:14 | disposition home or self-care (01) | DRG 660 ==
LOC: ED 04:32 → SUATTDRO 06:53 → INTOOBSV 06:53 → EDINP 06:53 → 2S 18:28

== ENCOUNTER 2024-08-26 13:54 | Inpatient (IN) ==
[2024-08-26 15:04] LABS: Basophils # (auto) 0.07 K/uL (0.00-0.20); Basophils % (auto) 0.6 %; Eosinophils # (auto) 0.18 K/uL (0.00-0.50); Eosinophils % (auto) 1.4 %; Hemoglobin 13.4 g/dl (12.0-16.0); Immature Granulocytes # (auto) 0.23 K/uL (0.01-0.20); Immature Granulocytes % (auto) 1.8 %; Lymphocytes # (auto) 2.41 K/uL (1.20-3.40); Lymphocytes % (auto) 19.1 %; Mean Corpuscular Hemoglobin 30.5 pg (25.0-34.0); Mean Corpuscular Hgb Conc 31.2 g/dL (32.0-36.0); Mean Corpuscular Volume 97.7 fL (80.0-100.0); Mean Platelet Volume 9.5 fL (9.4-12.4); Monocytes # (auto) 0.81 K/uL (0.11-0.59); Monocytes % (auto) 6.4 %; Neutrophils % (auto) 70.7 %; Nucleated RBC # (auto) 0.03 K/uL (0.00-0.12); Nucleated RBC % (auto) 0.2 %; Platelet Count 264 K/uL (130-400); RDW Coefficient of Variation 17.2 % (11.5-14.5); RDW Standard Deviation 61.8 fL (36.4-46.3)
--- NOTE | 2024-08-26 15:07 | XRay Report ---
XR chest 1V portable CLINICAL HISTORY: weakness COMPARISON STUDY: 08/22/2024 FINDINGS: No significant interval change has occurred. Postoperative vero identified in the right pulmonary apex. Chronic blunting of the right costophrenic angle. There is chronic cardiomegaly and p ulmonary vascular congestion. There is no acute pulmonary process identified. Pacemaker remains in pl ursula. IMPRESSION: Stable exam; no acute findings ACT 112: Negative or not required by law. Electronically signed by: Karely Oden M.D. 08/26/2024 3:06 PM
[2024-08-26 15:30] LABS: Alanine Aminotransferase 41 U/L (7-52); Albumin Globulin Ratio 1.3 (0.9-2); Albumin Level 3.6 gm/dl (3.4-5.0); Alkaline Phosphatase 174 U/L (34-104); Anion Gap 12 (3-11); BUN Creatinine Ratio 20.9 (10-20); Bilirubin,Total 0.9 mg/dl (0.2-1.0); Blood Urea Nitrogen 19 mg/dl (6-23); Calcium 9.1 mg/dl (8.6-10.3); Carbon Dioxide 23 mmol/L (21-32); Chloride 106 mmol/L (98-107); Globulin 2.8 gm/dl (2.5-4.0); Glucose 127 mg/dl (70-99(Fasting)); Sodium 141 mmol/L (136-145); Total Protein 6.4 gm/dl (6.0-8.3)
[2024-08-26 15:34] LABS: Troponin I High Sensitivity 50.7 pg/ml (0-14)
[2024-08-26 15:42] LABS: INR 1.1 (0.9-1.1); Partial Thromboplastin Ratio 0.9; Partial Thromboplastin Time 23 Seconds (21-31); Prothrombin Time 11.6 Seconds (9.0-12.0)
[2024-08-26 15:45] LABS: Thyroid Stimulating Hormone 3.488 uIu/ml (0.300-4.500)
--- NOTE | 2024-08-26 15:47 | Emergency Department Note ---
Impression & Plan SOB (shortness of breath), Acute UTI, CHF (congestive heart failure), Atrial fibrillation with rapid ventricular response, Elevated troponin, Elevated lactic acid level ED Provider Note NAME: JOHN KWONG AGE: 83 SEX: F : 1940 ARRIVES VIA: Ambulance INFORMANT: [Patient][son] ED PROVIDER(S): [Josh Urena MD] CHIEF COMPLAINT: Weak, short of breath HISTORY OF PRESENT ILLNESS: The patient is an 83-year-old female who was seen in this ED 4 days ago. At that time, she was found to have some mild heart failure, some new compression fractures in the thoracic area, a UTI. She did not want to stay in the hospital and did choose to go home. She was placed on antibiotics, tramadol to be used for pain. The patient presents today complaining of increasing shortness of breath and increasing weakness. She has not taken her medications this morning. She does think the antibiotics may have caused some diarrhea. There has been no fever, no cough, no abdominal pain. She has not had chest pain. The patient states that her back pain is actually better, she is just using Tylenol for the back pain. It is the breathing and the fatigue that has brought her here today. Of note, EMS noted her to be in a rapid A-fib during transport. Of note, the patient is adamant that she is a DNR. PMHx/PSHx/Social Hx: See Below PHYSICAL EXAM: GENERAL: Patient is in no acute distress. Thin and frail. HEENT: No acute trauma, normocephalic atraumatic, mucous membranes moist, no nasal congestion. NECK: No stridor, no adenopathy, no meningismus, trachea is midline. LUNGS: Crackles throughout both lung manzano, no wheezing. No obvious respiratory stress but the respiratory rate is increased. HEART: No obvious murmur, tachycardic and irregular. ABDOMEN: Soft, nontender, no peritonitis. EXTREMITIES: No cyanosis, full range of motion of all the joints without pain or difficulty. NEUROLOGIC: Oriented x 3, no acute motor or sensory deficits, no focal weakness. SKIN: No jaundice, no diaphoresis. DIFFERENTIAL DIAGNOSIS: CHF, pneumonia, bronchitis, UTI, bacteremia or sepsis, dysrhythmia, UT, among others. EMERGENCY DEPARTMENT PROCEDURES: MEDICAL DECISION MAKING: There is a slight leukocytosis, this could be consistent with infection. There is a normal hemoglobin and platelet count. There was a bandemia on the CBC differential. No coagulopathy. No renal failure. No electrolyte abnormality in need of emergent correction. Lactic acid level was elevated, possibly from infection versus the stress of her rapid A-fib. Patient appeared to be in a euthyroid state. ECG showed a rapid atrial fibrillation without acute ST elevation. Cardiac enzyme testing was somewhat elevated consistent with potential cardiac injury or mismatch from her rapid heart rate. BNP was elevated consistent with fluid overload. Chest x-ray shows some subtle CHF, no focal infiltrate. Urinalysis was consistent with infection. Digoxin level was therapeutic. On exam, the patient appeared tachypneic but was not in respiratory distress. She had crackles on lung exam. She was in rapid A-fib on the cardiac exercise specialist. The patient was aggressively managed given her presentation. She was initially ordered for IV Lopressor but this was then canceled and she received a 10 mg bolus of IV diltiazem. A diltiazem drip was ordered to be used if the heart rate were to again increase above 100. The bolus of IV diltiazem seemed to control the heart rate nicely. Patient was given 1 inch of nitroglycerin paste to offload some of her fluid overload. She received 20 mg of IV Lasix. She received IV cefepime as antibiotic coverage. A Villegas catheter was placed to monitor urine output. After the above treatment, the patient was feeling improved. She felt better, she was less short of breath and the heart rate was controlled. Given the findings, the patient would be best served with hospitalization. She is in rapid A-fib, she is in heart failure, she has suffered some stress to her heart from the rapid heart rate and A-fib. She appears to have a UTI. She was just in our ED and has not done well with outpatient treatment, she has failed outpatient management. I did speak with the patient and her son, I spoke with the piano case and bench assembler. The on-call hospitalist was consulted. Prior/Outside records/notes reviewed: Today's EMS notes describing her presentation and transport to this hospital. ECG per my interpretation: Indication was shortness of breath. The ECG shows atrial fibrillation with a rate of 126. There is some diffuse nonspecific ST change. No ST elevation. No PVCs. The QTc is 402. Repeat ECG per my interpretation: Indication was A-fib. The ECG shows atrial fibrillation with a rate of 85. There is diffuse nonspecific ST change. No ST elevation, no PVCs. The QTc is 440. Compared to the earlier ECG, the rate has decreased. Continuous Cardiac Monitoring per my interpretation: An order was placed for continuous cardiac monitoring. The monitor shows a rate of 123 with rapid atrial fibrillation. Imaging/x-ray results per my interpretation: Chest x-ray shows potential mild CHF, a pacemaker is noted. There is no focal pneumonia. Chronic Medical/Social conditions affecting care: Advanced age. Care/Management discussed with: Case management, the on-call hospitalist. Level of care consideration(s): After review of the information above and other included data: --I believe the patient requires escalation of care to admission Critical Care Note: I have personally spent 51 minutes of critical care time in the direct management of this patient. This includes bedside care, interpretation of diagnostic studies, and testing, discussion with consultants, patient, and family members, and other required patient management activities. This 51 minutes is in excess of all separately billable procedures. DISPOSITION: Admission Past Med/Surg History Problem List Elevated lactic acid level (Acute) Elevated troponin (Acute) Atrial fibrillation with rapid ventricular response (Acute) CHF (congestive heart failure) (Acute) Acute UTI (Acute) SOB (shortness of breath) (Acute) Fracture, thoracic vertebra (Acute ~08/22/24) CHF (congestive heart failure) (Acute) Leukocytosis (Acute) Compression of thoracic vertebra (Acute) Acute UTI (Acute) Acute right flank pain (Acute) Right knee DJD Heart failure with reduced ejection fraction Cardiomyopathy (Chronic) Calculus, ureteral (Acute) Valvular heart disease Weakness (Acute) Nephrolithiasis Chronic anticoagulation Atrial fibrillation Bilateral renal stones (Chronic) Microscopic hematuria (Chronic) Insomnia (Chronic) Hypertension (Chronic) Rheumatoid arthritis History of implantable cardiac defibrillator (ICD) currently turned off a few months>followed by Dr. Sams>implanted after cardiac arrest PAD (peripheral artery disease) Chronic steroid use Osteoporosis, unspecified (Chronic) Brain aneurysm (Chronic) under surveillance by PCP (stable x years) Medical History Pulmonary hypertension RVSP 45 mmHg Chronic obstructive pulmonary disease History of seizure at age 20 ? reason Coagulopathy takes eliquis and plavix Prolonged QT interval Cardiac arrest 05/2021>event occured in [place] ED Hyperlipidemia Right ureteral stone GERD (gastroesophageal reflux disease) Surgical History History of cystoscopy wtih stent placed (current) History of tooth extraction History of lithotripsy History of thoracotomy FOR COLLAPSED LUNG - HAD WEDGE RESECTION LOWER RIGHT Hx of cataract extraction rt/left H/O foot surgery rt/left Family History Mother Arthritis Father Congestive heart failure (CHF) Aunt Breast cancer Sister Stroke Other No family history of adverse response to anesthesia Thoracic aortic aneurysm Denies family history of Ovarian cancer Prostate cancer Diabetes Myocardial infarction Lung cancer Colorectal cancer Social History Smoking Status: Former smoker Tobacco Type: Cigarettes Age Started Using Tobacco: 16; Age Quit Using Tobacco: 45; packs per day: 0.5; Second Hand Exposure: Yes (as a child); Do You Dip or Chew Tobacco: No; Hx Alcohol Use: No Hx Substance Use: No Preferred Language: Portuguese Communication Ability: Effective Visual Impairment: Limited Hearing Ability: Normal Parboiler Required: No Beliefs That Will Affect Care: None marital status: / Current Living Situation: Alone current occupational status: retired How many Children do You have: 5 Feels Safe at Home: Yes Childhood Exposure to Second-Hand Smoke: Yes (dad did off and on ) caffeine: Yes (coffee) Dental Care, Regularly: No Physical Activity Frequency: Daily Physical Activity Frequency Comment: walks daily Seatbelt Use: always Sunscreen Use: Yes Assistive Devices: Cane, Denture - Upper, Denture - Lower, Glasses and Walker Allergies Allergies Allergy/AdvReac Type Severity Reaction Status Date / Time morphine AdvReac Intermediate NAUSEA Verified 08/26/24 15:50 Home Meds Home Medications Medication Instructions Recorded Confirmed metoprolol succinate 50 mg 50 mg PO QAM 07/11/24 08/26/24 tablet,extended release 24 hr Previous Rx's Medication Instructions Recorded apixaban 2.5 mg tablet 2.5 mg PO BID #180 tabs 01/30/24 clopidogrel 75 mg tablet 75 mg PO QAM #90 tabs 02/24/24 dapagliflozin propanediol 10 mg 10 mg PO QAM #100 tabs 02/25/24 tablet (Farxiga) sacubitril 49 mg-valsartan 51 mg 1 tab PO BID #180 tabs 05/12/24 tablet (Entresto) prednisone 10 mg tablet 10 - 20 mg (1 - 2 x 10 mg) PO 06/28/24 DAILY PRN pain #60 tabs furosemide 20 mg tablet (Lasix) 20 mg PO QAM #30 tabs 07/03/24 digoxin 125 mcg (0.125 mg) tablet 0.125 mg PO .QOD #90 tabs 07/08/24 cefdinir 300 mg capsule 300 mg PO BID 10 days #20 caps 08/22/24 tramadol 25 mg tablet 12.5 - 25 mg (0.5 - 1 x 25 mg) PO 08/22/24 Q8H PRN pain #14 tabs Results & Data (ED) Vital Signs Vital Signs - 24 hr 08/26/24 13:54 08/26/24 14:37 08/26/24 15:00 Temperature 36.5 C Temperature Source Oral Pulse Rate 112 H 106 H 107 H Pulse Rate from SpO2 Sensor 158 H Respiratory Rate 32 H 36 H Respiratory Effort / Characteristics Non-Labored Respiratory Depth Normal Respiratory Pattern Regular Blood Pressure 129/103 H 142/109 H Blood Pressure Mean 111 120 Blood Pressure Position Semi-fowlers Pulse Oximetry 92 88 L Oxygen Delivery Method Room Air Room Air Oxygen Flow Rate Sepsis Recent Fever Within 48 Hours No Sepsis New/Unexplained Change in Mental Status No Sepsis Action Taken by Nursing Physician Notified 08/26/24 15:01 08/26/24 15:14 08/26/24 15:27 Temperature Temperature Source Pulse Rate 132 H Pulse Rate from SpO2 Sensor Respiratory Rate 21 Respiratory Effort / Characteristics Respiratory Depth Respiratory Pattern Blood Pressure Blood Pressure Mean Blood Pressure Position Pulse Oximetry 95 Oxygen Delivery Method Room Air Room Air Oxygen Flow Rate Sepsis Recent Fever Within 48 Hours Sepsis New/Unexplained Change in Mental Status Sepsis Action Taken by Nursing 08/26/24 15:39 08/26/24 15:54 08/26/24 16:03 Temperature Temperature Source Pulse Rate 68 70 Pulse Rate from SpO2 Sensor 64 74 Respiratory Rate 23 31 H Respiratory Effort / Characteristics Respiratory Depth Respiratory Pattern Blood Pressure 135/71 141/76 H Blood Pressure Mean 100 97 Blood Pressure Position Pulse Oximetry 99 100 Oxygen Delivery Method Nasal Cannula Nasal Cannula Oxygen Flow Rate 2 2 Sepsis Recent Fever Within 48 Hours Sepsis New/Unexplained Change in Mental Status Sepsis Action Taken by Nursing 08/26/24 17:00 08/26/24 18:34 Temperature Temperature Source Pulse Rate 85 115 H Pulse Rate from SpO2 Sensor Respiratory Rate 17 Respiratory Effort / Characteristics Respiratory Depth Respiratory Pattern Blood Pressure 135/90 Blood Pressure Mean 105 Blood Pressure Position Pulse Oximetry Oxygen Delivery Method Oxygen Flow Rate Sepsis Recent Fever Within 48 Hours Sepsis New/Unexplained Change in Mental Status Sepsis Action Taken by Prison Medications Current Medication List: was personally reviewed by ct Laboratory Data Attestation: I reviewed the patient's lab results. 08/26/24 14:10 08/26/24 15:36 Lab Results 08/26/24 08/26/24 08/26/24 Range/Units 14:10 15:09 15:21 WBC 12.60 H (4.8-10.8) K/ul RBC 4.40 (4.20-5.40) M/uL Hgb 13.4 (12.0-16.0) g/dl Hct 43.0 (37.0-47.0) % MCV 97.7 (80.0-100.0) fL MCH 30.5 (25.0-34.0) pg MCHC 31.2 L (32.0-36.0) g/dL RDW Std Deviation 61.8 H (36.4-46.3) fL RDW Coeff of Libra 17.2 H (11.5-14.5) % Plt Count 264 (130-400) K/uL MPV 9.5 (9.4-12.4) fL Immature Gran % (Auto) 1.8 % Neut % (Auto) 70.7 % Lymph % (Auto) 19.1 % [place] % (Auto) 6.4 % Eos % (Auto) 1.4 % Baso % (Auto) 0.6 % Neut # (Auto) 8.90 H (1.40-6.50) K/uL Lymph # (Auto) 2.41 (1.20-3.40) K/uL [place] # (Auto) 0.81 H (0.11-0.59) K/uL Eos # (Auto) 0.18 (0.00-0.50) K/uL Baso # (Auto) 0.07 (0.00-0.20) K/uL Immature Gran # (Auto) 0.23 H (0.01-0.20) K/uL Absolute Nucleated RBC 0.03 (0.00-0.12) K/uL Nucleated RBC % (auto) 0.2 % PT 11.6 (9.0-12.0) Seconds INR 1.1 (0.9-1.1) APTT 23 (21-31) Seconds PTT Ratio 0.9 Sodium 141 (136-145) mmol/L Potassium TNP Chloride 106 (98-107) mmol/L Carbon Dioxide 23 (21-32) mmol/L Anion Gap 12 H (3-11) BUN 19 (6-23) mg/dl Creatinine 0.91 (0.6-1.2) mg/dl Est Cr Clr Drug Dosing 37.0 ml/min eGFR 62.60 BUN/Creatinine Ratio 20.9 H (10-20) Glucose 127 H (70-99(Fasting)) mg/dl Lactate 3.4 H* (0.4-2.0) mmol/L Calcium 9.1 (8.6-10.3) mg/dl Magnesium 2.0 (1.7-2.4) mg/dl Total Bilirubin 0.9 (0.2-1.0) mg/dl AST TNP ALT 41 (7-52) U/L Alkaline Phosphatase 174 H (34-104) U/L Troponin I High Sens 50.7 H* (0-14) pg/ml B-Natriuretic Peptide 1319 H (0-100) pg/ml Total Protein 6.4 (6.0-8.3) gm/dl Albumin 3.6 (3.4-5.0) gm/dl Globulin 2.8 (2.5-4.0) gm/dl Albumin/Globulin Ratio 1.3 (0.9-2) TSH 3.488 (0.300-4.500) uIu/ml Urine Color Yellow Urine Appearance Clear (Clear) Urine pH 5.5 (4.5-7.5) Ur Specific [place] 1.024 (1.000-1.030) Urine Protein 2+ H (Negative) Urine Glucose (UA) 3+ H (Negative) Urine Ketones 1+ H (Negative) Urine Blood 2+ H (Negative) Urine Nitrite Negative (Negative) Urine Bilirubin Negative (Negative) Urine Urobilinogen Negative (Negative) Ur Leukocyte Esterase Negative (Negative) Urine WBC (Auto) 21-50 H (0-5) /hpf Urine RBC (Auto) 6-10 H (0-2) /hpf U Hyaline Cast (Auto) 0-2 (0-2) /lpf U Epithel Cells (Auto) 0-2 (0-2) /hpf Urine Bacteria (Auto) None Seen (None Seen) Urine Yeast Present A (None Prsent) Urine Comment Digoxin 0.8 (0.8-2.0) ng/ml 08/26/24 08/26/24 08/26/24 Range/Units 15:36 16:51 17:24 WBC (4.8-10.8) K/ul RBC (4.20-5.40) M/uL Hgb (12.0-16.0) g/dl Hct (37.0-47.0) % MCV (80.0-100.0) fL MCH (25.0-34.0) pg MCHC (32.0-36.0) g/dL RDW Std Deviation (36.4-46.3) fL RDW Coeff of Libra (11.5-14.5) % Plt Count (130-400) K/uL MPV (9.4-12.4) fL Immature Gran % (Auto) % Neut % (Auto) % Lymph % (Auto) % [place] % (Auto) % Eos % (Auto) % Baso % (Auto) % Neut # (Auto) (1.40-6.50) K/uL Lymph # (Auto) (1.20-3.40) K/uL [place] # (Auto) (0.11-0.59) K/uL Eos # (Auto) (0.00-0.50) K/uL Baso # (Auto) (0.00-0.20) K/uL Immature Gran # (Auto) (0.01-0.20) K/uL Absolute Nucleated RBC (0.00-0.12) K/uL Nucleated RBC % (auto) % PT (9.0-12.0) Seconds INR (0.9-1.1) APTT (21-31) Seconds PTT Ratio Sodium (136-145) mmol/L Potassium 3.5 Chloride (98-107) mmol/L Carbon Dioxide (21-32) mmol/L Anion Gap (3-11) BUN (6-23) mg/dl Creatinine (0.6-1.2) mg/dl Est Cr Clr Drug Dosing ml/min eGFR BUN/Creatinine Ratio (10-20) Glucose (70-99(Fasting)) mg/dl Lactate 2.3 H* (0.4-2.0) mmol/L Calcium (8.6-10.3) mg/dl Magnesium (1.7-2.4) mg/dl Total Bilirubin (0.2-1.0) mg/dl AST 28 ALT (7-52) U/L Alkaline Phosphatase (34-104) U/L Troponin I High Sens 188.8 H* D (0-14) pg/ml B-Natriuretic Peptide (0-100) pg/ml Total Protein (6.0-8.3) gm/dl Albumin (3.4-5.0) gm/dl Globulin (2.5-4.0) gm/dl Albumin/Globulin Ratio (0.9-2) TSH (0.300-4.500) uIu/ml Urine Color Urine Appearance (Clear) Urine pH (4.5-7.5) Ur Specific [place] (1.000-1.030) Urine Protein (Negative) Urine Glucose (UA) (Negative) Urine Ketones (Negative) Urine Blood (Negative) Urine Nitrite (Negative) Urine Bilirubin (Negative) Urine Urobilinogen (Negative) Ur Leukocyte Esterase (Negative) Urine WBC (Auto) (0-5) /hpf Urine RBC (Auto) (0-2) /hpf U Hyaline Cast (Auto) (0-2) /lpf U Epithel Cells (Auto) (0-2) /hpf Urine Bacteria (Auto) (None Seen) Urine Yeast (None Prsent) Urine Comment Digoxin (0.8-2.0) ng/ml Administered Medications Diltiazem HCl 125 mg/ Dextrose 125 mls @ 5 mls/hr IV .Q24H [facility]; Protocol Stop: 09/25/24 15:29 Last Admin: 08/26/24 18:19 Dose: Not Given Documented By: MARYANN Discontinued Medications Diltiazem HCl (Diltiazem Hcl 5 Mg/Ml 5 Ml Vial) 10 mg IV NOW STA Stop: 08/26/24 15:19 Last Admin: 08/26/24 15:31 Dose: 10 mg Documented By: MARYANN Co-signed By: QGV Furosemide (Furosemide 40 Mg/4 Ml Vial) 40 mg IV ONE ONE Stop: 08/26/24 14:59 Last Admin: 08/26/24 16:09 Dose: Not Given Documented By: MARYANN Furosemide (Furosemide Inj 20 Mg/2 Ml Vial) 20 mg IV ONE ONE Stop: 08/26/24 15:40 Last Admin: 08/26/24 15:53 Dose: 20 mg Documented By: MARYANN Cefepime HCl (Maxipime 2000mg) 2,000 mg in 20 mls @ 5 mls/min IV NOW STA; Protocol Stop: 08/26/24 15:04 Last Admin: 08/26/24 15:37 Dose: 5 mls/min Documented By: MARYANN Metoprolol Tartrate (Metoprolol Tartrate 1 Mg/Ml Vial) 2.5 mg IV NOW STA Stop: 08/26/24 14:59 Last Admin: 08/26/24 16:09 Dose: Not Given Documented By: MARYANN Miscellaneous (Stat Iv Infusion Titration Per Protocol) 1 each N/A NOW STA Stop: 08/26/24 15:19 Last Admin: 08/26/24 18:19 Dose: Not Given Documented By: MARYANN Nitroglycerin (Nitroglycerin 2% Ointment 30gm Tube) 1 inch EXT NOW STA Stop: 08/26/24 14:59 Last Admin: 08/26/24 15:37 Dose: 1 inch Documented By: MARYANN Imaging Data Radiologist's Impression: Chest X-Ray 08/26/24 14:51 XR chest 1V portable CLINICAL HISTORY: weakness COMPARISON STUDY: 08/22/2024 FINDINGS: No significant interval change has occurred. Postoperative vero identified in the right pulmonary apex. Chronic blunting of the right costophrenic angle. There is chronic cardiomegaly and pulmonary vascular congestion. There is no acute pulmonary process identified. Pacemaker remains in place. IMPRESSION: Stable exam; no acute findings ACT 112: Negative or not required by law. Electronically signed by: Karely Oden M.D. 08/26/2024 3:06 PM Discharge Plan Visit Data Chief Complaint: Weakness Stated Complaint: WEAKNESS, SOB, AFIB ED Provider: Josh Urena Discharge Problem: SOB (shortness of breath), Acute UTI, CHF (congestive heart failure), Atrial fibrillation with rapid ventricular response, Elevated troponin, Elevated lactic acid level Patient Disposition: Admitted As Inpatient Condition: Serious Forms Stand Alone Forms: My [facility], Important Visit Information Prescriptions Prescriptions: No Action apixaban 2.5 mg tablet 2.5 mg PO BID Qty: 180 3RF Patient Comments: currently on hold Farxiga 10 mg tablet 10 mg PO QAM Qty: 100 3RF Entresto 49-51 mg tablet 1 tab PO BID Qty: 180 3RF prednisone 10 mg tablet 10 - 20 mg PO DAILY PRN (Reason: pain) Qty: 60 3RF furosemide [Lasix] 20 mg tablet 20 mg PO QAM Qty: 30 0RF Rx Instructions: LAST FILLED 07/03 FOR 30 DS digoxin 125 mcg (0.125 mg) tablet 0.125 mg PO .QOD Qty: 90 3RF clopidogrel 75 mg tablet 75 mg PO QAM Qty: 90 3RF metoprolol succinate 50 mg tablet extended release 24 hr 50 mg PO QAM tramadol 25 mg tablet 12.5 - 25 mg PO Q8H PRN (Reason: pain) Qty: 14 0RF cefdinir 300 mg capsule 300 mg PO BID 10 Days Qty: 20 0RF Rx Instructions: PER PT "GAVE ME DIARRHEA FROM DAY ONE, STOPPED TAKING 08/25 AFTER AM DOSE". Referrals Referrals: Milagros Lewis MD [Primary Care Provider] - Discharge Problem: CHF (congestive heart failure) Qualifiers: Heart failure type: unspecified Heart failure chronicity: unspecified Qualified Code(s): I50.9 - Heart failure, unspecified
[2024-08-26 15:55] LABS: Appearance Urine Clear (Clear); Bacteria Urine Automated None Seen (None Seen); Bilirubin Urine Negative (Negative); Blood Urine 2+ (Negative); Cast Urine Automated 0-2 /lpf (0-2); Color Urine Yellow; Epithelial Cell Urine Auto 0-2 /hpf (0-2); Glucose Urine UA 3+ (Negative); Ketones Urine 1+ (Negative); Leukocyte Esterase Urine Negative (Negative); Nitrite Urine Negative (Negative); Protein Urine 2+ (Negative); Specific Gravity Urine 1.024 (1.000-1.030); Urobilinogen Urine Negative (Negative); WBC Urine Automated 21-50 /hpf (0-5); pH Urine 5.5 (4.5-7.5)
--- NOTE | 2024-08-26 15:55 | Electrocardiogram Report ---
Test Reason : Blood Pressure : */* mmHG Vent. Rate : 126 BPM Atrial Rate : * BPM P-R Int : * ms QRS Dur : 78 ms QT Int : 278 ms P-R-T Axes : * 29 218 degrees QTcB Int : 402 ms Atrial fibrillation with rapid ventricular response Abnormal ECG When compared with ECG of 22-Aug-2024 11:38, ST more depressed Lateral leads Confirmed by Timothy Sams ([id number]) on 08/26/2024 3:55:48 PM Referred By: Confirmed By: Timothy Sams
[2024-08-26 16:06] LABS: Potassium 3.5 mmol/L (3.5-5.1)
--- NOTE | 2024-08-26 17:01 | History & Physical Report ---
Date of Service August 26, 2024 Assessment & Plan (1) Atrial fibrillation: (2) Acute UTI: (3) Heart failure with reduced ejection fraction: Plan 82-year-old female with a past medical history including atrial fibrillation with rapid ventricular response, urine tract infections, kidney stone history, rheumatoid arthritis, atrial fibrillation, superior mesenteric artery stenosis, history of ICD, PAD, chronic anticoagulation with apixaban, left lower extremity ischemia, right lower extremity ischemia, COPD, cardiomyopathy and brain aneurysm. Patient has significant informatory rheumatoid arthritis which limits the quality of her life. She endorses to treat things in a more simple manner but not with significant aggressive therapies. She did have her AICD turned off a few months ago She presents after failing outpatient therapy for urinary tract infection which subsequently has worsened atrial fibrillation rapid ventricular response #Atrial fibrillation. Patient was given 1 dose of 10 mg of diltiazem in the ER with good response. Patient has backup metoprolol 5 mg. She typically takes metoprolol 50 for her cardiomyopathy. She will be given additional dose of metoprolol tartrate 25 this evening. With regard to elevated troponin this is demand ischemia from her rapid heart rate. She does suffer from a cardiomyopathy and the ICD is disabled. She remains chronically anticoagulated with apixaban #Heart failure reduced ejection fraction. Patient is on guideline based medical therapy including digoxin Farxiga metoprolol and Entresto. She questions whether Farxiga has any implication in her recent UTI we will discuss this with her cardiology. #UTI on presentation urine culture obtained on 510 was a polymicrobial specimen. Repeat cultures currently pending as well as blood cultures. She has a history of Enterococcus and E. coli in the past. Remains on cefepime therapy that was initiated in the emergency department #Rheumatoid arthritis. Patient says she only takes prednisone 10 and as needed Ultram for her pain she has marked deformities. Patient reinforces that she is a DNR and she says when her time comes as her time ago History of Present Illness Primary Care Provider: Milagros Lewis MD 82-year-old female with a past medical history including atrial fibrillation with rapid ventricular response, urine tract infections, kidney stone history, rheumatoid arthritis, atrial fibrillation, superior mesenteric artery stenosis, history of ICD, PAD, chronic anticoagulation with apixaban, left lower extremity ischemia, right lower extremity ischemia, COPD, cardiomyopathy and brain aneurysm. Patient has significant informatory rheumatoid arthritis which limits the quality of her life. She endorses to treat things in a more simple manner but not with significant aggressive therapies. She did have her AICD turned off a few months ago She presents after failing outpatient therapy for urinary tract infection which subsequently has worsened atrial fibrillation rapid ventricular response Allergies Allergy/AdvReac Type Severity Reaction Status Date / Time morphine AdvReac Intermediate NAUSEA Verified 08/26/24 15:50 Home Medications Medication Instructions Recorded Confirmed Type apixaban 2.5 mg tablet 2.5 mg PO BID #180 tabs 01/30/24 08/26/24 Rx clopidogrel 75 mg tablet 75 mg PO QAM #90 tabs 02/24/24 08/26/24 Rx dapagliflozin propanediol 10 mg 10 mg PO QAM #100 tabs 02/25/24 08/26/24 Rx tablet (Farxiga) sacubitril 49 mg-valsartan 51 mg 1 tab PO BID #180 tabs 05/12/24 08/26/24 Rx tablet (Entresto) prednisone 10 mg tablet 10 - 20 mg (1 - 2 x 10 mg) PO 06/28/24 08/26/24 Rx DAILY PRN pain #60 tabs furosemide 20 mg tablet (Lasix) 20 mg PO QAM #30 tabs 07/03/24 08/26/24 Rx digoxin 125 mcg (0.125 mg) tablet 0.125 mg PO .QOD #90 tabs 07/08/24 08/26/24 Rx metoprolol succinate 50 mg 50 mg PO QAM 07/11/24 08/26/24 History tablet,extended release 24 hr cefdinir 300 mg capsule 300 mg PO BID 10 days #20 caps 08/22/24 08/26/24 Rx tramadol 25 mg tablet 12.5 - 25 mg (0.5 - 1 x 25 mg) PO 08/22/24 08/26/24 Rx Q8H PRN pain #14 tabs Past Med/Surg History Problem List (Updated 08/26/24 @ 08:37 by NANCY Vieira) Fracture, thoracic vertebra (Acute ~08/22/24) CHF (congestive heart failure) (Acute) Leukocytosis (Acute) Compression of thoracic vertebra (Acute) Acute UTI (Acute) Acute right flank pain (Acute) Right knee DJD Heart failure with reduced ejection fraction Cardiomyopathy (Chronic) Calculus, ureteral (Acute) Valvular heart disease Weakness (Acute) Nephrolithiasis Chronic anticoagulation Atrial fibrillation Bilateral renal stones (Chronic) Microscopic hematuria (Chronic) Insomnia (Chronic) Hypertension (Chronic) Rheumatoid arthritis History of implantable cardiac defibrillator (ICD) currently turned off a few months>followed by Dr. Sams>implanted after cardiac arrest PAD (peripheral artery disease) Chronic steroid use Osteoporosis, unspecified (Chronic) Brain aneurysm (Chronic) under surveillance by PCP (stable x years) Medical History Pulmonary hypertension RVSP 45 mmHg Chronic obstructive pulmonary disease History of seizure at age 20 ? reason Coagulopathy takes eliquis and plavix Prolonged QT interval Cardiac arrest 05/2021>event occured in [place] ED Hyperlipidemia Right ureteral stone GERD (gastroesophageal reflux disease) Surgical History History of cystoscopy wtih stent placed (current) History of tooth extraction History of lithotripsy History of thoracotomy FOR COLLAPSED LUNG - HAD WEDGE RESECTION LOWER RIGHT Hx of cataract extraction rt/left H/O foot surgery rt/left Family History Mother Arthritis Father Congestive heart failure (CHF) Aunt Breast cancer Sister Stroke Other No family history of adverse response to anesthesia Thoracic aortic aneurysm Denies family history of Ovarian cancer Prostate cancer Diabetes Myocardial infarction Lung cancer Colorectal cancer Social History Smoking Status: Former smoker Tobacco Type: Cigarettes Age Started Using Tobacco: 16; Age Quit Using Tobacco: 45; packs per day: 0.5; Second Hand Exposure: Yes (as a child); Do You Dip or Chew Tobacco: No; Hx Alcohol Use: No Hx Substance Use: No Preferred Language: Montserratian Communication Ability: Effective Visual Impairment: Limited Hearing Ability: Normal Film Splicer Required: No Beliefs That Will Affect Care: None marital status: / Current Living Situation: Alone current occupational status: retired How many Children do You have: 5 Feels Safe at Home: Yes Childhood Exposure to Second-Hand Smoke: Yes (dad did off and on ) caffeine: Yes (coffee) Dental Care, Regularly: No Physical Activity Frequency: Daily Physical Activity Frequency Comment: walks daily Seatbelt Use: always Sunscreen Use: Yes Assistive Devices: Cane, Denture - Upper, Denture - Lower, Glasses and Walker Review of Systems Review of Systems: moderate distress and fatigue no headache, no visual changes no speech or swallowing issues no chest pain, pressure but did have sensation of racing heart or palpitations Significant shortness of breath and audible wheezes on presentation no abdominal pain, nausea or vomiting, diarrhea or constipation no dysuria, hematuria or frequency no focal joint pain complain of mild ankle swelling no back pain, CVA tenderness or radicular pain no bruising, bleeding or rashes no focal signs of weakness or numbness or altered sensation no complaints of anxiety or depression.. Physical Exam Physical Exam: The patient appeared thin with a BMI of 22 marked rheumatoid arthritic deformities of hands Vital signs as documented. Head exam is normocephalic atraumatic Neck is with 2 cm JVD, thyromegaly, or carotid bruits. Lungs are diminished with bibasilar rales one third the way up Cardiac exam, rapid and irregular systolic murmur heard Abdominal exam reveals normal bowel sounds, soft non tender, no masses Extremities are trace edematous and both pedal pulses are present Neurologic exam is alert and oriented, no focal loss of strength or sensation Skin is with bruises she denies recent falls but says her from her Plavix and apixaban she has no rashes Psychologically is without concerns for anxiety or depression.. Results & Data Results & Data Vital Signs (Past 12 Hours) Vital Signs Temp Pulse Resp BP Pulse Ox O2 Del Method 08/26/24 15:14 95 Room Air 08/26/24 15:01 Room Air 08/26/24 14:37 106 H 08/26/24 13:54 97.7 F 112 H 32 H 129/103 H 92 Room Air Laboratory Results Reviewed CBC Reviewed chemistry Reviewed troponin Reviewed digoxin Updated family, Jon son on the phone PG Care Time/CCT Total # of Minutes Spent Total Time Spent with Patient: Total time spent is greater than 50% in coordination of care (as documented) at patient's floor/unit and/or counseling patient: Coding Level of Care Code 29849 INT INP/OBS CARE 3/75MIN Diagnoses Atrial fibrillation I48.91 Acute UTI N39.0 Heart failure with reduced ejection fraction I50.20
[2024-08-27 04:46] LABS: Hematocrit (blood only) 40.1 % (37.0-47.0); Hemoglobin 12.6 g/dl (12.0-16.0); Mean Corpuscular Hemoglobin 30.7 pg (25.0-34.0); Mean Corpuscular Hgb Conc 31.4 g/dL (32.0-36.0); Mean Corpuscular Volume 97.6 fL (80.0-100.0); Mean Platelet Volume 8.8 fL (9.4-12.4); Nucleated RBC # (auto) 0.03 K/uL (0.00-0.12); Nucleated RBC % (auto) 0.3 %; Platelet Count 208 K/uL (130-400); RDW Coefficient of Variation 17.2 % (11.5-14.5); RDW Standard Deviation 60.9 fL (36.4-46.3); Red Blood Count 4.11 M/uL (4.20-5.40); White Blood Count 9.28 K/ul (4.8-10.8)
[2024-08-27 05:01] LABS: Calcium 8.5 mg/dl (8.6-10.3); Creatinine Clr Calc Pharmacy 32.1 ml/min; Magnesium 1.9 mg/dl (1.7-2.4); Potassium 3.5 mmol/L (3.5-5.1)
--- NOTE | 2024-08-27 08:16 | Hospitalist Progress Note ---
Date of Service August 27, 2024 Assessment & Plan (1) Atrial fibrillation: (2) Acute UTI: (3) Heart failure with reduced ejection fraction: Plan 82-year-old female with a past medical history including atrial fibrillation with rapid ventricular response, urine tract infections, kidney stone history, rheumatoid arthritis, atrial fibrillation, superior mesenteric artery stenosis, history of ICD, PAD, chronic anticoagulation with apixaban, left lower extremity ischemia, right lower extremity ischemia, COPD, cardiomyopathy and brain aneurysm. Patient has significant informatory rheumatoid arthritis which limits the quality of her life. She endorses to treat things in a more simple manner but not with significant aggressive therapies. She did have her AICD turned off a few months ago She presents after failing outpatient therapy for urinary tract infection which subsequently has worsened atrial fibrillation rapid ventricular response #Atrial fibrillation. Patient has backup metoprolol 5 mg iv. She typically takes metoprolol 50 for her cardiomyopathy. With regard to elevated troponin this is demand ischemia from her rapid heart rate. She does suffer from a cardiomyopathy and the ICD is disabled. She remains chronically anticoagulated with apixaban, Farxiga is non formulary and may consider discontinuation give uti and geriatric age #Heart failure reduced ejection fraction. Patient is on guideline based medical therapy including digoxin Farxiga metoprolol and Entresto. She questions whether Farxiga has any implication in her recent UTI #UTI on presentation urine culture obtained on 510 was a polymicrobial specimen. Repeat cultures currently pending as well as blood cultures. She has a history of Enterococcus and E. coli in the past. Remains on cefepime therapy that was initiated in the emergency department #Rheumatoid arthritis. Patient says she only takes prednisone 10 and as needed Ultram for her pain she has marked deformities. Patient reinforces that she is a DNR and she says when her time comes as her time ago Admission and Anticipated Discharge Date Admission Date: August 26, 2024 Subjective pt feels better this am, heart rate is controlled. do not have dapagliflozin on formulary, will not restart Physical Exam Physical Exam: this pt is in no respiratory distress cardiac is rate controlled lungs are clear abd is soft and non tender Results & Data Results & Data Vital Signs (Past 12 Hours) Vital Signs Temp Pulse Pulse Resp BP Pulse Ox O2 Del Method 08/27/24 08:09 97.3 F L 86 20 125/82 97 Nasal Cannula 08/27/24 07:51 87 08/27/24 04:02 98.1 F 93 H 16 123/77 98 Room Air 08/26/24 23:13 97.5 F L 77 16 118/74 98 Room Air 08/26/24 21:30 Nasal Cannula 08/26/24 21:09 26 H 08/26/24 21:00 117 H 08/26/24 20:58 97.3 F L 119 H 16 145/96 H 100 Nasal Cannula O2 Flow Rate 08/27/24 08:09 08/27/24 07:51 08/27/24 04:02 08/26/24 23:13 08/26/24 21:30 2 08/26/24 21:09 08/26/24 21:00 08/26/24 20:58 2 Laboratory Results reviewed cbc reviewed chemistry PG Care Time/CCT Total # of Minutes Spent Total Time Spent with Patient: Total time spent is greater than 50% in coordination of care (as documented) at patient's floor/unit and/or counseling patient: Coding Level of Care Code 33208 SUB INP/OBS CARE 3/50MIN Diagnoses Atrial fibrillation I48.91 Acute UTI N39.0 Heart failure with reduced ejection fraction I50.20
--- NOTE | 2024-08-27 17:11 | Hospitalist Progress Note ---
Date of Service August 27, 2024 Assessment & Plan (1) Atrial fibrillation: (2) Acute UTI: (3) Heart failure with reduced ejection fraction: Plan 82-year-old female with a past medical history including atrial fibrillation with rapid ventricular response, urine tract infections, kidney stone history, rheumatoid arthritis, atrial fibrillation, superior mesenteric artery stenosis, history of ICD, PAD, chronic anticoagulation with apixaban, left lower extremity ischemia, right lower extremity ischemia, COPD, cardiomyopathy and brain aneurysm. Patient has significant informatory rheumatoid arthritis which limits the quality of her life. She endorses to treat things in a more simple manner but not with significant aggressive therapies. She did have her AICD turned off a few months ago She presents after failing outpatient therapy for urinary tract infection which subsequently has worsened atrial fibrillation rapid ventricular response #Atrial fibrillation. Patient has backup metoprolol 5 mg iv. She typically takes metoprolol 50 for her cardiomyopathy. With regard to elevated troponin this is demand ischemia from her rapid heart rate. She does suffer from a cardiomyopathy and the ICD is disabled. She remains chronically anticoagulated with apixaban, Farxiga is non formulary and may consider discontinuation give uti and geriatric age #aute on chronic Heart failure reduced ejection fraction. Patient is on guideline based medical therapy including digoxin Farxiga metoprolol and Entresto. She questions whether Farxiga has any implication in her recent UTI #UTI on presentation urine culture obtained on 510 was a polymicrobial specimen. Repeat cultures currently pending as well as blood cultures. She has a history of Enterococcus and E. coli in the past. Remains on cefepime therapy that was initiated in the emergency department #Rheumatoid arthritis. Patient says she only takes prednisone 10 and as needed Ultram for her pain she has marked deformities. Patient reinforces that she is a DNR and she says when her time comes as her time ago Admission and Anticipated Discharge Date Admission Date: August 26, 2024 Results & Data Results & Data Vital Signs (Past 12 Hours) Vital Signs Temp Pulse Pulse Resp BP Pulse Ox O2 Del Method 08/27/24 15:37 97.5 F L 90 20 124/76 97 Nasal Cannula 08/27/24 11:20 97.5 F L 76 20 110/71 97 Nasal Cannula 08/27/24 10:44 Nasal Cannula 08/27/24 09:33 98 H 08/27/24 08:09 97.3 F L 86 20 125/82 97 Nasal Cannula 08/27/24 07:51 87 O2 Flow Rate 08/27/24 15:37 08/27/24 11:20 08/27/24 10:44 2 08/27/24 09:33 08/27/24 08:09 08/27/24 07:51 PG Care Time/CCT Total # of Minutes Spent Total Time Spent with Patient: Total time spent is greater than 50% in coordination of care (as documented) at patient's floor/unit and/or counseling patient: Coding Level of Care Code None Diagnoses Atrial fibrillation I48.91 Acute UTI N39.0 Heart failure with reduced ejection fraction I50.20
--- NOTE | 2024-08-27 17:13 | Electrocardiogram Report ---
Test Reason : Blood Pressure : */* mmHG Vent. Rate : 85 BPM Atrial Rate : * BPM P-R Int : * ms QRS Dur : 78 ms QT Int : 370 ms P-R-T Axes : * 12 191 degrees QTcB Int : 440 ms Atrial fibrillation Nonspecific ST and T wave abnormality Abnormal ECG When compared with ECG of 26-Aug-2024 14:01, T wave inversion no longer evident in Anterior leads Confirmed by Timothy Sams ([id number]) on 08/27/2024 5:12:56 PM Referred By: REFERRED SELF Confirmed By: Timothy Sams
[2024-08-28 06:11] LABS: Hematocrit (blood only) 39.3 % (37.0-47.0); Hemoglobin 12.8 g/dl (12.0-16.0); Mean Corpuscular Hemoglobin 31.2 pg (25.0-34.0); Mean Corpuscular Hgb Conc 32.6 g/dL (32.0-36.0); Mean Corpuscular Volume 95.9 fL (80.0-100.0); Mean Platelet Volume 8.9 fL (9.4-12.4); Platelet Count 185 K/uL (130-400); RDW Coefficient of Variation 16.9 % (11.5-14.5); RDW Standard Deviation 58.5 fL (36.4-46.3); White Blood Count 8.95 K/ul (4.8-10.8)
[2024-08-28 06:26] LABS: BUN Creatinine Ratio 19.3 (10-20); Calcium 8.3 mg/dl (8.6-10.3); Creatinine Clr Calc Pharmacy 29.3 ml/min; Magnesium 1.7 mg/dl (1.7-2.4)
--- NOTE | 2024-08-28 11:03 | Hospitalist Progress Note ---
Date of Service August 28, 2024 Assessment & Plan (1) Atrial fibrillation: Plan: -HR improved without cardizem drip, will d/c -con't digoxin, toprol XL -lopressor 5mg IV PRN -cardiology consulted (2) Acute UTI: Plan: -on cefepime -Urine cultures negative (3) Heart failure with reduced ejection fraction: Plan: con't digoxin Farxiga metoprolol and Entresto Plan 82-year-old female with a past medical history including atrial fibrillation with rapid ventricular response, urine tract infections, kidney stone history, rheumatoid arthritis, atrial fibrillation, superior mesenteric artery stenosis, history of ICD, PAD, chronic anticoagulation with apixaban, left lower extremity ischemia, right lower extremity ischemia, COPD, cardiomyopathy and brain aneurysm. Patient has significant informatory rheumatoid arthritis which limits the quality of her life. She endorses to treat things in a more simple manner but not with significant aggressive therapies. She did have her AICD turned off a few months ago PT evaluation pending Patient reinforces that she is a DNR and she says when her time comes as her time ago Admission and Anticipated Discharge Date Admission Date: August 26, 2024 Subjective No events overnight. Pt's HR has remained uncontrol. Not on cardizem drip. Review of Systems Review of Systems: CONST: Negative for fever, body aches and chills. HENT: Negative for neck pain/stiffness, headache, congestion, sore throat, sw elling. EYES: Negative for discharge/pain or vision changes. RESP: Negative for cough/hemoptysis and shortness of breath. CV: Negative chest pain, difficulty breathing, palpitations. ABD: Negative pain, nausea, vomiting. : Negative increase frequency, dysuria, blood in urine or stool. MUSC: Negative for muscle aches, edema. SKIN: Negative rash, lesions/sores. NEURO: Negative headache, dizziness, weakness. Physical Exam Physical Exam: GENERAL APPEARANCE NAD, activity normal for age, well developed/ well nourished, no cyanosis, pallor, or diaphoresis. EYES lids/conjunctiva normal. EARS/NOSE/THROAT Mucous membranes moist, nares normal, lips/teeth normal uvula midline without oral pharyngeal erythema, exudate or swelling TMs normal bilaterally. No lymphangitis/lymphedema. HEAD/NECK normocephalic atraumatic, no facial trauma, neck is supple. RESPIRATORY respiratory effort normal, speaks in full sentences, no tripod position, no accessory muscle use. Lungs clear to auscultation without rhonchi, wheezes, rales CARDIAC Regular rate and rhythm, no edema. ABDOMINAL Soft, ND/NT. No evidence of fluid wave. No pulsatile masses on exam, rebound tenderness, Thomson sign or pain over Mcburney's point. MUSCLES/EXTREMITIES No abnormal range of motion, no swelling. SKIN Warm, pink and dry. No rashes, dermatoses, petechiae or lesions. NEUROLOGICAL Speech is clear and appropriate. Normal level of consciousness. Gait and coordination are normal. 5/5 strength in all extremities. PSYCH Normal mood and affect. Judgement/competence is appropriate Results & Data Results & Data Vital Signs (Past 12 Hours) Vital Signs Temp Pulse Pulse Resp BP Pulse Ox O2 Del Method 08/28/24 08:27 103 H 08/28/24 08:23 Nasal Cannula 08/28/24 07:58 36.6 C 88 16 143/71 H 93 Nasal Cannula 08/28/24 02:45 36.6 C 82 16 120/71 97 Nasal Cannula 08/27/24 23:00 36.6 C 91 H 21 129/85 96 Nasal Cannula O2 Flow Rate 08/28/24 08:27 08/28/24 08:23 2 08/28/24 07:58 1.0 08/28/24 02:45 2 08/27/24 23:00 2 PG Care Time/CCT Total # of Minutes Spent Total Time Spent with Patient: Total time spent is greater than 50% in coordination of care (as documented) at patient's floor/unit and/or counseling patient: Coding Level of Care Code 16290 SUB INP/OBS CARE 2/35MIN Diagnoses Atrial fibrillation I48.91 Acute UTI N39.0 Heart failure with reduced ejection fraction I50.20
--- NOTE | 2024-08-28 12:57 | Cardiology Consultation ---
Date of Consultation August 28, 2024 Assessment & Plan (1) Atrial fibrillation with rapid ventricular response: (2) Cardiomyopathy: (3) Mitral regurgitation: Plan 1. Atrial fibrillation: Permanent. No overt symptoms. Rate control previously had been quite good. She is monitored remotely with her ICD. Increased rates likely related to her acute illness or volume changes. In the past she was on amiodarone but developed significant hepatotoxicity in conjunction with methot rexate. At this point I think would be reasonable to simply double her metoprolol succinate. No concerns about bradycardia given her defibrillator. She can continue digoxin as well. This peers be dosed appropriately based on her recent toxicology. She is to continue her systemic anticoagulation with apixaban at reduced dose. 2. Cardiomyopathy: Longstanding. No overt decompensation. Perhaps some mild pulmonary vascular congestion but no overt edema and no symptoms. She could continue her current dose of diuretic which appears to be effective based on her recorded outputs. She will also continue her medical regimen which includes metoprolol succinate, Farxiga and Entresto. 3. Mitral regurgitation: This can follow in the outpatient setting. 4. Single-chamber ICD with therapies deactivated at patient request. History of Present Illness Reason for Consultation: Atrial fibrillation Requesting Physician: Love Attending Physician: Colin Aleman MD History of Present Illness The patient is an 83-year-old woman with a history of permanent atrial fibrillation who presented to the hospital with atrial fibrillation. It seems that she has not been feeling well at home and was brought to the hospital at the direction of her sons who felt as if she was somewhat confused and weaker than normal. She was given have a urinary tract infection. Her initial e valuation also revealed elevated ventricular rates associated with atrial fibrillation. Patient been unaware of any high heart rates. She generally not aware of any palpitations. She admits to being somewhat weaker but feels better currently. She does ambulate at home with a walker and with going out ambulates with a cane. She denies dizziness or lightheadedness. She does not have limiting dyspnea but is short of breath at times. No overt orthopnea. No chest pain. She does not report chronic lower extremity edema. Perhaps some mild swelling in her ankles at the end of the day which resolves by morning. Allergies Allergy/AdvReac Type Severity Reaction Status Date / Time morphine AdvReac Intermediate NAUSEA Verified 08/26/24 15:50 Home Medications Medication Instructions Recorded Confirmed Type apixaban 2.5 mg tablet 2.5 mg PO BID #180 tabs 01/30/24 08/26/24 Rx clopidogrel 75 mg tablet 75 mg PO QAM #90 tabs 02/24/24 08/26/24 Rx dapagliflozin propanediol 10 mg 10 mg PO QAM #100 tabs 02/25/24 08/26/24 Rx tablet (Farxiga) sacubitril 49 mg-valsartan 51 mg 1 tab PO BID #180 tabs 05/12/24 08/26/24 Rx tablet (Entresto) prednisone 10 mg tablet 10 - 20 mg (1 - 2 x 10 mg) PO 06/28/24 08/26/24 Rx DAILY PRN pain #60 tabs furosemide 20 mg tablet (Lasix) 20 mg PO QAM #30 tabs 07/03/24 08/26/24 Rx digoxin 125 mcg (0.125 mg) tablet 0.125 mg PO .QOD #90 tabs 07/08/24 08/26/24 Rx metoprolol succinate 50 mg 50 mg PO QAM 07/11/24 08/26/24 History tablet,extended release 24 hr cefdinir 300 mg capsule 300 mg PO BID 10 days #20 caps 08/22/24 08/26/24 Rx tramadol 25 mg tablet 12.5 - 25 mg (0.5 - 1 x 25 mg) PO 08/22/24 08/26/24 Rx Q8H PRN pain #14 tabs Patient History Medical History Pulmonary hypertension RVSP 45 mmHg Chronic obstructive pulmonary disease History of seizure at age 20 ? reason Coagulopathy takes eliquis and plavix Prolonged QT interval Cardiac arrest 05/2021>event occured in [place] ED Hyperlipidemia Right ureteral stone GERD (gastroesophageal reflux disease) Surgical History History of cystoscopy wtih stent placed (current) History of tooth extraction History of lithotripsy History of thoracotomy FOR COLLAPSED LUNG - HAD WEDGE RESECTION LOWER RIGHT Hx of cataract extraction rt/left H/O foot surgery rt/left Family History Mother Arthritis Father Congestive heart failure (CHF) Aunt Breast cancer Sister Stroke Other No family history of adverse response to anesthesia Thoracic aortic aneurysm Denies family history of Ovarian cancer Prostate cancer Diabetes Myocardial infarction Lung cancer Colorectal cancer Social History Smoking Status: Former smoker Tobacco Type: Cigarettes Age Started Using Tobacco: 16; Age Quit Using Tobacco: 45; packs per day: 0.5; Smoking End Date: 40 yrs ago; Second Hand Exposure: Yes (as a child); Do You Dip or Chew Tobacco: No; Hx Alcohol Use: No Hx Substance Use: No Preferred Language: Arabic Communication Ability: Effective Visual Impairment: Limited Hearing Ability: Normal Lvn Lpn Required: No Beliefs That Will Affect Care: None marital status: / Current Living Situation: Alone current occupational status: retired How many Children do You have: 5 Other Information That Helps Us Care for You: No Feels Safe at Home: Yes Safety Concerns: Feels Safe At This Time Childhood Exposure to Second-Hand Smoke: Yes (dad did off and on ) caffeine: Yes (coffee) Dental Care, Regularly: No Physical Activity Frequency: Daily Physical Activity Frequency Comment: walks daily Seatbelt Use: always Sunscreen Use: Yes Assistive Devices: Cane and Walker Review of Systems Review of Systems: Per HPI. No subjective fevers or chills. No dysuria. No abdominal pain. Poor appetite overall. Physical Exam Physical Exam: She is alert and oriented x3. Mood affect appear normal. She answered all questions appropriately. HEENT: Sclerae are anicteric. Pupils are equal and reactive to light and accommodation. Extraocular movements were intact. Neuro: Cranial nerves intact Lungs: Lungs are clear to auscultation bilaterally. There are no rales wheezes or rhonchi. She has normal respiratory effort without use of accessory muscles. There is normal pulmonary excursion. Cardiac: The rhythm was irregular. S1 and S2 were normal. There are no murmurs on examination. The PMI was not markedly displaced on palpation. Abdomen: The abdomen was soft and nontender. Extremities: Patient has bilateral radial pulses that are equal in intensity. There is no evidence cyanosis or clubbing. There was no evidence of significant peripheral edema bilaterally. Arthritis deformities of both hands Skin: There are no rashes noted on examination today. Results & Data Vital Signs (Past 12 Hours) Vital Signs Temp Pulse Pulse Resp BP Pulse Ox O2 Del Method 08/28/24 08:27 103 H 08/28/24 08:23 Nasal Cannula 08/28/24 07:58 36.6 C 88 16 143/71 H 93 Nasal Cannula 08/28/24 02:45 36.6 C 82 16 120/71 97 Nasal Cannula O2 Flow Rate 08/28/24 08:27 08/28/24 08:23 2 08/28/24 07:58 1.0 08/28/24 02:45 2 Laboratory Results Abnormal Lab Results 08/28/24 05:26 WBC 8.95 RBC 4.10 L Hgb 12.8 Hct 39.3 MCV 95.9 MCH 31.2 MCHC 32.6 RDW Std Deviation 58.5 H RDW Coeff of Libra 16.9 H Plt Count 185 MPV 8.9 L Sodium 139 Potassium 3.0 L Chloride 104 Carbon Dioxide 26 Anion Gap 9 BUN 22 Creatinine 1.14 Est Cr Clr Drug Dosing 29.3 eGFR 47.77 BUN/Creatinine Ratio 19.3 Glucose 78 Calcium 8.3 L Magnesium 1.7 Diagnostic Findings Echocardiogram 01/02/2023: Severely reduced LV systolic function with ejection fraction of 25 to 30%. Mild LVH. Severe right atrial dilation. Mild to moderate mitral regurgitation. Mild pulmonary hypertension. PG Care Time/CCT Total # of Minutes Spent Total Time Spent with Patient: Total time spent is greater than 50% in coordination of care (as documented) at patient's floor/unit and/or counseling patient: Coding Level of Care Code 05890 INT INP/OBS CARE 3/75MIN Diagnoses Atrial fibrillation with rapid ventricular response I48.91 Cardiomyopathy, unspecified type I42.9 Cardiomyopathy type: unspecified Mitral regurgitation I34.0 (2) Cardiomyopathy Cardiomyopathy type: unspecified Qualified Code(s): I42.9 - Cardiomyopathy, unspecified
[2024-08-29 05:31] LABS: Hematocrit (blood only) 40.2 % (37.0-47.0); Hemoglobin 13.2 g/dl (12.0-16.0); Mean Corpuscular Hemoglobin 30.9 pg (25.0-34.0); Mean Corpuscular Hgb Conc 32.8 g/dL (32.0-36.0); Mean Corpuscular Volume 94.1 fL (80.0-100.0); Mean Platelet Volume 9.3 fL (9.4-12.4); Platelet Count 189 K/uL (130-400); RDW Coefficient of Variation 16.8 % (11.5-14.5); RDW Standard Deviation 57.1 fL (36.4-46.3); Red Blood Count 4.27 M/uL (4.20-5.40)
[2024-08-29 05:48] LABS: BUN Creatinine Ratio 19.4 (10-20); Calcium 8.6 mg/dl (8.6-10.3); Creatinine Clr Calc Pharmacy 34.1 ml/min; Magnesium 1.7 mg/dl (1.7-2.4); Potassium 3.2 mmol/L (3.5-5.1)
--- NOTE | 2024-08-29 10:50 | Hospitalist Progress Note ---
Date of Service August 29, 2024 Assessment & Plan (1) Atrial fibrillation: Plan: -HR improved without cardizem drip, will d/c -con't digoxin -lopressor 5mg IV PRN -cardiology consult appreciated -Toprol increased to 50mg BID (2) Acute UTI: Plan: -on cefepime -Urine cultures negative (3) Heart failure with reduced ejection fraction: Plan: con't digoxin Farxiga metoprolol and Entresto Plan 82-year-old female with a past medical history including atrial fibrillation with rapid ventricular response, urine tract infections, kidney stone history, rheumatoid arthritis, atrial fibrillation, superior mesenteric artery stenosis, history of ICD, PAD, chronic anticoagulation with apixaban, left lower extremity ischemia, right lower extremity ischemia, COPD, cardiomyopathy and brain aneurysm. Patient has significant informatory rheumatoid arthritis which limits the quality of her life. She endorses to treat things in a more simple manner but not with significant aggressive therapies. She did have her AICD turned off a few months ago PT evaluation pending Patient reinforces that she is a DNR and she says when her time comes as her time ago Admission and Anticipated Discharge Date Admission Date: August 26, 2024 Subjective Pt states she still feel tired while eating food. Awaiting PT evaluation. Review of Systems Review of Systems: CONST: Negative for fever, body aches and chills. HENT: Negative for neck pain/stiffness, headache, congestion, sore throat, swelling. EYES: Negative for discharge/pain or vision changes. RESP: Negative for cough/hemoptysis and shortness of breath. CV: Negative chest pain, difficulty breathing, palpitations. ABD: Negative pain, nausea, vomiting. : Negative increase frequency, dysuria, blood in urine or stool. MUSC: Negative for muscle aches, edema. SKIN: Negative rash, lesions/sores. NEURO: Negative headache, dizziness, weakness. Physical Exam Physical Exam: GENERAL APPEARANCE NAD, activity normal for age, well developed/ well nourished, no cyanosis, pallor, or diaphoresis. EYES lids/conjunctiva normal. EARS/NOSE/THROAT Mucous membranes moist, nares normal, lips/teeth normal uvula midline without oral pharyngeal erythema, exudate or swelling TMs normal bilaterally. No lymphangitis/lymphedema. HEAD/NECK normocephalic atraumatic, no facial trauma, neck is supple. RESPIRATORY respiratory effort normal, speaks in full sentences, no tripod position, no accessory muscle use. Lungs clear to auscultation without rhonchi, wheezes, rales CARDIAC Regular rate and rhythm, no edema. ABDOMINAL Soft, ND/NT. No evidence of fluid wave. No pulsatile masses on exam, rebound tenderness, Thomson sign or pain over Mcburney's point. MUSCLES/EXTREMITIES No abnormal range of motion, no swelling. SKIN Warm, pink and dry. No rashes, dermatoses, petechiae or lesions. NEUROLOGICAL Speech is clear and appropriate. Normal level of consciousness. Gait and coordination are normal. 5/5 strength in all extremities. PSYCH Normal mood and affect. Judgement/competence is appropriate Results & Data Results & Data Vital Signs (Past 12 Hours) Vital Signs Temp Pulse Pulse Resp BP BP Pulse Ox 08/29/24 09:30 94 H 08/29/24 07:54 08/29/24 07:30 37.1 C 73 18 127/78 99 08/29/24 02:46 36.6 C 90 16 121/68 96 O2 Del Method O2 Flow Rate 08/29/24 09:30 08/29/24 07:54 Nasal Cannula 2 08/29/24 07:30 Nasal Cannula 08/29/24 02:46 Nasal Cannula 2 PG Care Time/CCT Total # of Minutes Spent Total Time Spent with Patient: Total time spent is greater than 50% in coordination of care (as documented) at patient's floor/unit and/or counseling patient: Coding Level of Care Code 81675 SUB INP/OBS CARE 2/35MIN Diagnoses Atrial fibrillation I48.91 Acute UTI N39.0 Heart failure with reduced ejection fraction I50.20
[2024-08-30 05:20] LABS: Hematocrit (blood only) 43.7 % (37.0-47.0); Mean Corpuscular Hemoglobin 30.7 pg (25.0-34.0); Mean Corpuscular Volume 95.8 fL (80.0-100.0); Platelet Count 191 K/uL (130-400); RDW Coefficient of Variation 16.8 % (11.5-14.5); RDW Standard Deviation 58.5 fL (36.4-46.3); Red Blood Count 4.56 M/uL (4.20-5.40)
[2024-08-30 05:35] LABS: BUN Creatinine Ratio 17.5 (10-20); Creatinine Clr Calc Pharmacy 29.5 ml/min; Potassium 3.1 mmol/L (3.5-5.1)
--- NOTE | 2024-08-30 10:13 | Hospitalist Progress Note ---
Date of Service August 30, 2024 Assessment & Plan (1) Atrial fibrillation: Plan: -HR improved without cardizem drip -con't digoxin -lopressor 5mg IV PRN -cardiology consult appreciated -Toprol increased to 50mg BID (2) Acute UTI: Plan: -on cefepime -Urine cultures negative (3) Heart failure with reduced ejection fraction: Plan: con't digoxin Farxiga metoprolol and Entresto Plan 82-year-old female with a past medical history including atrial fibrillation with rapid ventricular response, urine tract infections, kidney stone history, rheumatoid arthritis, atrial fibrillation, superior mesenteric artery stenosis, history of ICD, PAD, chronic anticoagulation with apixaban, left lower extremity ischemia, right lower extremity ischemia, COPD, cardiomyopathy and brain aneurysm. Patient has significant informatory rheumatoid arthritis which limits the quality of her life. She endorses to treat things in a more simple manner but not with significant aggressive therapies. She did have her AICD turned off a few months ago PT evaluation pending Patient reinforces that she is a DNR and she says when her time comes as her time ago Admission and Anticipated Discharge Date Admission Date: August 26, 2024 Subjective No events overnight. Awaiting PT evaluation. Review of Systems 2 Review of Systems: CONST: Negative for fever, body aches and chills. HENT: Negative for neck pain/stiffness, headache, congestion, sore throat, swelling. EYES: Negative for discharge/pain or vision changes. RESP: Negative for cough/hemoptysis and shortness of breath. CV: Negative chest pain, difficulty breathing, palpitations. ABD: Negative pain, nausea, vomiting. : Negative increase frequency, dysuria, blood in urine or stool. MUSC: Negative for muscle aches, edema. SKIN: Negative rash, lesions/sores. NEURO: Negative headache, dizziness, weakness. Physical Exam Physical Exam: GENERAL APPEARANCE NAD, activity normal for age, well developed/ well nourished, no cyanosis, pallor, or diaphoresis. EYES lids/conjunctiva normal. EARS/NOSE/THROAT Mucous membranes moist, nares normal, lips/teeth normal uvula midline without oral pharyngeal erythema, exuda te or swelling TMs normal bilaterally. No lymphangitis/lymphedema. HEAD/NECK normocephalic atraumatic, no facial trauma, neck is supple. RESPIRATORY respiratory effort normal, speaks in full sentences, no tripod position, no accessory muscle use. Lungs clear to auscultation without rhonchi, wheezes, rales CARDIAC Regular rate and rhythm, no edema. ABDOMINAL Soft, ND/NT. No evidence of fluid wave. No pulsatile masses on exam, rebound tenderness, Thomson sign or pain over Mcburney's point. MUSCLES/EXTREMITIES No abnormal range of motion, no swelling. SKIN Warm, pink and dry. No rashes, dermatoses, petechiae or lesions. NEUROLOGICAL Speech is clear and appropriate. Normal level of consciousness. Gait and coordination are normal. 5/5 strength in all extremities. PSYCH Normal mood and affect. Judgement/competence is appropriate Results & Data Results & Data Vital Signs (Past 12 Hours) Vital Signs Temp Pulse Pulse Resp BP BP Pulse Ox 08/30/24 08:00 83 08/30/24 08:00 08/30/24 07:45 36.7 C 83 18 125/74 96 08/30/24 05:03 36.5 C 108 H 20 97 08/30/24 04:19 141/79 H O2 Del Method O2 Flow Rate 08/30/24 08:00 08/30/24 08:00 Nasal Cannula 2 08/30/24 07:45 Nasal Cannula 08/30/24 05:03 Nasal Cannula 2 08/30/24 04:19 PG Care Time/CCT Total # of Minutes Spent Total Time Spent with Patient: Total time spent is greater than 50% in coordination of care (as documented) at patient's floor/unit and/or counseling patient: Coding Level of Care Code 43984 SUB INP/OBS CARE 2/35MIN Diagnoses Atrial fibrillation I48.91 Acute UTI N39.0 Heart failure with reduced ejection fraction I50.20
--- NOTE | 2024-08-31 10:17 | Hospitalist Progress Note ---
Date of Service August 31, 2024 Assessment & Plan (1) Atrial fibrillation: Plan: -HR improved without cardizem drip -con't digoxin -lopressor 5mg IV PRN -cardiology consult appreciated -Toprol increased to 50mg BID (2) Acute UTI: Plan: -abx dc'd -Urine cultures negative (3) Heart failure with reduced ejection fraction: Plan: con't digoxin Farxiga metoprolol and Entresto Plan 82-year-old female with a past medical history including atrial fibrillation with rapid ventricular response, urine tract infections, kidney stone history, rheumatoid arthritis, atrial fibrillation, superior mesenteric artery stenosis, history of ICD, PAD, chronic anticoagulation with apixaban, left lower extremity ischemia, right lower extremity ischemia, COPD, cardiomyopathy and brain aneurysm. Patient has significant informatory rheumatoid arthritis which limits the quality of her life. She endorses to treat things in a more simple manner but not with significant aggressive therapies. She did have her AICD turned off a few months ago PT evaluation recommending SNF Case mangers working on placement Patient reinforces that she is a DNR and she says when her time comes as her time ago Admission and Anticipated Discharge Date Admission Date: August 26, 2024 Subjective No events overnight, pt resting comfortably in bed. Review of Systems Review of Systems: CONST: Negative for fever, body aches and chills. HENT: Negative for neck pain/stiffness, headache, congestion, sore throat, swelling. EYES: Negative for discharge/pain or vision changes. RESP: Negative for cough/hemoptysis and shortness of breath. CV: Negative chest pain, difficulty breathing, palpitations. ABD: Negative pain, nausea, vomiting. : Negative increase frequency, dysuria, blood in urine or stool. MUSC: Negative for muscle aches, edema. SKIN: Negative rash, lesions/sores. NEURO: Negative headache, dizziness, weakness. Physical Exam Physical Exam: GENERAL APPEARANCE NAD, activity normal for age, well developed/ well nourished, no cyanosis, pallor, or diaphoresis. EYES lids/conjunctiva normal. EARS/NOSE/THROAT Mucous membranes moist, nares normal, lips/teeth normal uvula midline without oral pharyngeal erythema, exudate or swelling TMs normal bilaterally. No lymphangitis/lymphedema. HEAD/NECK normocephalic atraumatic, no facial trauma, neck is supple. RESPIRATORY respiratory effort normal, speaks in full sentences, no tripod position, no accessory muscle use. Lungs clear to auscultation without rhonchi, wheezes, rales CARDIAC Regular rate and rhythm, no edema. ABDOMINAL Soft, ND/NT. No evidence of fluid wave. No pulsatile masses on exam, rebound tenderness, Thomson sign or pain over Mcburney's point. MUSCLES/EXTREMITIES No abnormal range of motion, no swelling. SKIN Warm, pink and dry. No rashes, dermatoses, petechiae or lesions. NEUROLOGICAL Speech is clear and appropriate. Normal level of consciousness. Gait and coordination are normal. 5/5 strength in all extremities. PSYCH Normal mood and affect. Judgement/competence is appropriate Results & Data Results & Data Vital Signs (Past 12 Hours) Vital Signs Temp Pulse Pulse Pulse Resp BP BP 08/31/24 09:58 105/66 08/31/24 09:12 82 08/31/24 08:20 36.3 C L 99 H 18 95/64 L 08/31/24 03:35 36.4 C L 83 16 108/71 08/30/24 23:30 36.3 C L 104 H 16 109/68 Pulse Ox O2 Del Method 08/31/24 09:58 08/31/24 09:12 08/31/24 08:20 94 Room Air 08/31/24 03:35 93 Room Air 08/30/24 23:30 95 Room Air PG Care Time/CCT Total # of Minutes Spent Total Time Spent with Patient: Total time spent is greater than 50% in coordination of care (as documented) at patient's floor/unit and/or counseling patient: Coding Level of Care Code 70484 SUB INP/OBS CARE 2/35MIN Diagnoses Atrial fibrillation I48.91 Acute UTI N39.0 Heart failure with reduced ejection fraction I50.20
--- NOTE | 2024-09-01 10:21 | Hospitalist Progress Note ---
Date of Service September 01, 2024 Assessment & Plan (1) Atrial fibrillation: Plan: -HR improved without cardizem drip -con't digoxin -lopressor 5mg IV PRN -cardiology consult appreciated -Toprol increased to 50mg BID (2) Acute UTI: Plan: -abx dc'd -Urine cultures negative (3) Heart failure with reduced ejection fraction: Plan: con't digoxin Farxiga metoprolol and Entresto Plan 82-year-old female with a past medical history including atrial fibrillation with rapid ventricular response, urine tract infections, kidney stone history, rheumatoid arthritis, atrial fibrillation, superior mesenteric artery stenosis, history of ICD, PAD, chronic anticoagulation with apixaban, left lower extremity ischemia, right lower extremity ischemia, COPD, cardiomyopathy and brain aneurysm. Patient has significant informatory rheumatoid arthritis which limits the quality of her life. She endorses to treat things in a more simple manner but not with significant aggressive therapies. She did have her AICD turned off a few months ago PT evaluation recommending SNF Case mangers working on placement Patient reinforces that she is a DNR and she says when her time comes as her time ago Admission and Anticipated Discharge Date Admission Date: August 26, 2024 Subjective Pt with episode of confusion overnight. Pt resting comfortably in bed. Review of Systems Review of Systems: CONST: Negative for fever, body aches and chills. HENT: Negative for neck pain/stiffness, headache, congestion, sore throat, swelling. EYES: Negative for discharge/pain or vision changes. RESP: Negative for cough/hemoptysis and shortness of breath. CV: Negative chest pain, difficulty breathing, palpitations. ABD: Negative pain, nausea, vomiting. : Negative increase frequency, dysuria, blood in urine or stool. MUSC: Negative for muscle aches, edema. SKIN: Negative rash, lesions/sores. NEURO: Negative headache, dizziness, weakness. Physical Exam Physical Exam: GENERAL APPEARANCE NAD, activity normal for age, well developed/ well nourished, no cyanosis, pallor, or diaphoresis. EYES lids/conjunctiva normal. EARS/NOSE/THROAT Mucous membranes moist, nares normal, lips/teeth normal uvula midline without oral pharyngeal erythema, exudate or swelling TMs normal bilaterally. No lymphangitis/lymphedema. HEAD/NECK normocephalic atraumatic, no facial trauma, neck is supple. RESPIRATORY respiratory effort normal, speaks in full sentences, no tripod position, no accessory muscle use. Lungs clear to auscultation without rhonchi, wheezes, rales CARDIAC Regular rate and rhythm, no edema. ABDOMINAL Soft, ND/NT. No evidence of fluid wave. No pulsatile masses on exam, rebound tenderness, Thomson sign or pain over Mcburney's point. MUSCLES/EXTREMITIES No abnormal range of motion, no swelling. SKIN Warm, pink and dry. No rashes, dermatoses, petechiae or lesions. NEUROLOGICAL Speech is clear and appropriate. Normal level of consciousness. Gait and coordination are normal. 5/5 strength in all extremities. PSYCH Normal mood and affect. Judgement/competence is appropriate Results & Data Results & Data Vital Signs (Past 12 Hours) Vital Signs Temp Pulse Resp BP Pulse Ox O2 Del Method 09/01/24 07:37 Room Air 09/01/24 07:22 36.6 C 98 H 15 113/78 96 Room Air 09/01/24 04:33 36.6 C 78 17 106/68 96 Room Air 09/01/24 00:30 112/70 08/31/24 23:55 36.3 C L 90 18 83/52 L 92 Room Air PG Care Time/CCT Total # of Minutes Spent Total Time Spent with Patient: Total time spent is greater than 50% in coordination of care (as documented) at patient's floor/unit and/or counseling patient: Coding Level of Care Code 54087 SUB INP/OBS CARE 2/35MIN Diagnoses Atrial fibrillation I48.91 Acute UTI N39.0 Heart failure with reduced ejection fraction I50.20
[2024-09-01 15:21] LABS: Hematocrit (blood only) 39.1 % (37.0-47.0); Hemoglobin 12.5 g/dl (12.0-16.0); Platelet Count 197 K/uL (130-400); RDW Coefficient of Variation 17.4 % (11.5-14.5); RDW Standard Deviation 59.3 fL (36.4-46.3); Red Blood Count 4.16 M/uL (4.20-5.40); White Blood Count 10.73 K/ul (4.8-10.8)
[2024-09-01 15:54] LABS: Calcium 8.9 mg/dl (8.6-10.3); Potassium 4.5 mmol/L (3.5-5.1)
[2024-09-01 15:59] LABS: BUN Creatinine Ratio 26.5 (10-20)
--- NOTE | 2024-09-01 16:00 | CT Scan Report ---
CT head/brain wo con CLINICAL HISTORY: 84 years-old Female with AMS. Acutely altered mental status TECHNIQUE: Multiple axial CT images of the head were obtained without contrast. A dose lowering tech nique was utilized adhering to the principles of ALARA. CT DOSE: 703.85 mGy.cm COMPARISON: 05/25/2021 FINDINGS: No acute intracranial hemorrhage, midline shift, intracranial mass, hydrocephalus, territorial ischem ia or abnormal extra-axial collection. Involutional changes with white matter hypodensities suggestiv e of chronic microvascular ischemic disease. Cerebrovascular calcifications. The calvarium is intact. Prior bilateral lens repair. The paranasal sinuses, mastoid air cells, and m iddle ear cavities are clear. IMPRESSION: No acute intracranial abnormality. ACT 112: Negative or not required by law. The above report was generated using voice recognition software. It may contain grammatical, syntax o r spelling errors. Electronically signed by: Gabino Rosales M.D. 09/01/2024 3:58 PM
--- NOTE | 2024-09-02 09:49 | Hospitalist Progress Note ---
Date of Service September 02, 2024 Assessment & Plan (1) Physical deconditioning: Plan: -pt not having much PO intake -physically is tired, exhausted and not wanting to continue medical treatment -Pt and family requesting comfort care and hospice evaluation -palliative care consulted -pt is DNR/DNI (2) Atrial fibrillation: Plan: -HR improved without cardizem drip -con't digoxin -lopressor 5mg IV PRN -cardiology consult appreciated -Toprol increased to 50mg BID (3) Acute UTI: Plan: -abx dc'd -Urine cultures negative (4) Heart failure with reduced ejection fraction: Plan: con't digoxin Farxiga metoprolol and Entresto Plan 82-year-old female with a past medical history including atrial fibrillation with rapid ventricular response, urine tract infections, kidney stone history, rheumatoid arthritis, atrial fibrillation, superior mesenteric artery stenosis, history of ICD, PAD, chronic anticoagulation with apixaban, left lower extremity ischemia, right lower extremity ischemia, COPD, cardiomyopathy and brain a neurysm. Patient has significant informatory rheumatoid arthritis which limits the quality of her life. She endorses to treat things in a more simple manner but not with significant aggressive therapies. She did have her AICD turned off a few months ago PT requesting to be made comfort care at this time Palliative care consulted Patient reinforces that she is a DNR and she says when her time comes as her time ago Admission and Anticipated Discharge Date Admission Date: August 26, 2024 Subjective Pt stating she does not want any further aggressive medical management and would like to be made comfort care. Review of Systems Review of Systems: CONST: Negative for fever, body aches and chills. HENT: Negative for neck pain/stiffness, headache, congestion, sore throat, swelling. EYES: Negative for discharge/pain or vision changes. RESP: Negative for cough/hemoptysis and shortness of breath. CV: Negative chest pain, difficulty breathing, palpitations. ABD: Negative pain, nausea, vomiting. : Negative increase frequency, dysuria, blood in urine or stool. MUSC: Negative for muscle aches, edema. SKIN: Negative rash, lesions/sores. NEURO: Negative headache, dizziness, weakness. Physical Exam Physical Exam: GENERAL APPEARANCE NAD, activity normal for age, well developed/ well nourished, no cyanosis, pallor, or diaphoresis. EYES lids/conjunctiva normal. EARS/NOSE/THROAT Mucous membranes moist, nares normal, lips/teeth normal uvula midline without oral pharyngeal erythema, exudate or swelling TMs normal bilaterally. No lymphangitis/lymphedema. HEAD/NECK normocephalic atraumatic, no facial trauma, neck is supple. RESPIRATORY respiratory effort normal, speaks in full sentences, no tripod position, no accessory muscle use. Lungs clear to auscultation without rhonchi, wheezes, rales CARDIAC Regular rate and rhythm, no edema. ABDOMINAL Soft, ND/NT. No evidence of fluid wave. No pulsatile masses on exam, rebound tenderness, Thomson sign or pain over Mcburney's point. MUSCLES/EXTREMITIES No abnormal range of motion, no swelling. SKIN Warm, pink and dry. No rashes, dermatoses, petechiae or lesions. NEUROLOGICAL Speech is clear and appropriate. Normal level of consciousness. Gait and coordination are normal. 5/5 strength in all extremities. PSYCH Normal mood and affect. Judgement/competence is appropriate Results & Data Results & Data Vital Signs (Past 12 Hours) Vital Signs Temp Pulse Pulse Resp BP Pulse Ox O2 Del Method 09/02/24 07:00 36.3 C L 102 H 14 91/57 L 97 Room Air 09/02/24 03:05 36.7 C 106 H 18 93/69 L 97 Room Air 09/01/24 23:16 36.4 C L 106 H 16 95/63 L 92 Room Air 09/01/24 22:38 102 H PG Care Time/CCT Total # of Minutes Spent Total Time Spent with Patient: Total time spent is greater than 50% in coordination of care (as documented) at patient's floor/unit and/or counseling patient: Coding Level of Care Code 80749 SUB INP/OBS CARE 2/35MIN Diagnoses Physical deconditioning R53.81 Atrial fibrillation I48.91 Acute UTI N39.0 Heart failure with reduced ejection fraction I50.20
--- NOTE | 2024-09-02 09:50 | Gastrointestinal Consultation ---
Date of Consultation September 02, 2024 Assessment & Plan (1) Heme positive stool: Plan Patient has heme positive stools in the setting of passing several maroon stools. She elects to not have any intervention for this and wishes to be comfort measures only. We will respect her wishes. Questions answered at bedside. Supervising Physician Co-Signing Physician Notes Patient with gastrointestinal bleeding. She declines any invasive GI procedures. Has asked for palliation. GI signs off reconsult. History of Present Illness Reason for Consultation: occult + Requesting Physician: Colin Aleman MD Attending Physician: Colin Aleman MD History of Present Illness Patient is an 82 year old female with a past medical history including atrial fibrillation with rapid ventricular response, urine tract infections, kidney stone history, rheumatoid arthritis, superior mesenteric artery stenosis, history of ICD, PAD, chronic anticoagulation with apixaban, left lower extremity ischemia, right lower extremity ischemia, COPD, cardiomyopathy and brain aneurysm who was admitted with failure to respond to outpatient treatment of UTI which aggravated her A fib. Patient has significant informatory rheumatoid arthritis which limits the quality of her life. She wishes to treat things in a more simple manner and to not have any significant aggressive therapies. Last evening she started passing maroon stools of which she has had several. She is now refusing her medications per nursing and wishes to be comfort measures only. I spoke with the patient as well as her family at bedside. Patient tells me herself that she does not want any intervention for her bleeding at this time and prefers comfort measures only. 09/01/24 wbc 10.7, hgb 12.5, hct 39.1, platelets 197, Na 135, K 4.5, BUN 44, Creatinine 1.66. occult positive stools. Allergies Allergy/AdvReac Type Severity Reaction Status Date / Time morphine AdvReac Intermediate NAUSEA Verified 08/26/24 15:50 Home Medications Medication Instructions Recorded Confirmed Type apixaban 2.5 mg tablet 2.5 mg PO BID #180 tabs 01/30/24 08/26/24 Rx clopidogrel 75 mg tablet 75 mg PO QAM #90 tabs 02/24/24 08/26/24 Rx dapagliflozin propanediol 10 mg 10 mg PO QAM #100 tabs 02/25/24 08/26/24 Rx tablet (Farxiga) sacubitril 49 mg-valsartan 51 mg 1 tab PO BID #180 tabs 05/12/24 08/26/24 Rx tablet (Entresto) prednisone 10 mg tablet 10 - 20 mg (1 - 2 x 10 mg) PO 06/28/24 08/26/24 Rx DAILY PRN pain #60 tabs furosemide 20 mg tablet (Lasix) 20 mg PO QAM #30 tabs 07/03/24 08/26/24 Rx digoxin 125 mcg (0.125 mg) tablet 0.125 mg PO .QOD #90 tabs 07/08/24 08/26/24 Rx metoprolol succinate 50 mg 50 mg PO QAM 07/11/24 08/26/24 History tablet,extended release 24 hr cefdinir 300 mg capsule 300 mg PO BID 10 days #20 caps 08/22/24 08/26/24 Rx tramadol 25 mg tablet 12.5 - 25 mg (0.5 - 1 x 25 mg) PO 08/22/24 08/26/24 Rx Q8H PRN pain #14 tabs Patient History Medical History Pulmonary hypertension RVSP 45 mmHg Chronic obstructive pulmonary disease History of seizure at age 20 ? reason Coagulopathy takes eliquis and plavix Prolonged QT interval Cardiac arrest 05/2021>event occured in [place] [facility] Hyperlipidemia Right ureteral stone GERD (gastroesophageal reflux disease) Surgical History History of cystoscopy wtih stent placed (current) History of tooth extraction History of lithotripsy History of thoracotomy FOR COLLAPSED LUNG - HAD WEDGE RESECTION LOWER RIGHT Hx of cataract extraction rt/left H/O foot surgery rt/left Family History Mother Arthritis Father Congestive heart failure (CHF) Aunt Breast cancer Sister Stroke Other No family history of adverse response to anesthesia Thoracic aortic aneurysm Denies family history of Ovarian cancer Prostate cancer Diabetes Myocardial infarction Lung cancer Colorectal cancer Social History Smoking Status: Former smoker Tobacco Type: Cigarettes Age Started Using Tobacco: 16; Age Quit Using Tobacco: 45; packs per day: 0.5; Smoking End Date: 40 yrs ago; Second Hand Exposure: Yes (as a child); Do You Dip or Chew Tobacco: No; Hx Alcohol Use: No Hx Substance Use: No Preferred Language: Serbian Communication Ability: Effective Visual Impairment: Limited Hearing Ability: Normal Ms Access Database Developer Required: No Beliefs That Will Affect Care: [employer] marital status: / Current Living Situation: Alone current occupational status: retired How many Children do You have: 5 Other Information That Helps Us Care for You: No Feels Safe at Home: Yes Safety Concerns: Feels Safe At This Time Childhood Exposure to Second-Hand Smoke: Yes (dad did off and on ) caffeine: Yes (coffee) Dental Care, Regularly: No Physical Activity Frequency: Daily Physical Activity Frequency Comment: walks daily Seatbelt Use: always Sunscreen Use: Yes Assistive Devices: Cane and Walker Review of Systems Review of Systems: All systems reviewed & are unremarkable except as noted in HPI & below Physical Exam Respiratory: normal respiratory effort. Psychiatric: alert and oriented x 3. seems fatigued. Results & Data Vital Signs (Past 12 Hours) Vital Signs Temp Pulse Pulse Resp BP Pulse Ox O2 Del Method 09/02/24 07:00 97.3 F L 102 H 14 91/57 L 97 Room Air 09/02/24 03:05 98.1 F 106 H 18 93/69 L 97 Room Air 09/01/24 23:16 97.5 F L 106 H 16 95/63 L 92 Room Air 09/01/24 22:38 102 H Coding Level of Care Code 74650 INT INP/OBS CARE 2/55MIN Diagnoses Heme positive stool R19.5
--- NOTE | 2024-09-02 10:28 | Palliative Care Consultation ---
Date of Consultation September 02, 2024 Assessment & Plan (1) Palliative care by specialist: Met with pt and her daughter at bedside and her son Jon by phone. Spent 36min discussing goals of care and anticipatory guidance for end of life. Introduced Palliative Medicine and explained our role in advanced care planning, symptom management and navigation through the progression of life limiting disease. Patient and/or family were receptive to palliative services for goals of care discussions. Reviewed we are different from hospice, a home health nurse visiting service. (2) Counseling regarding end of life decision making: Patient exhibits current decisional capacity based on the ability to convey understanding of personal PMHx, current medical condition, treatment options nor the risks / benefits/ potential outcomes of accepting/declining those options, and ability to make decisions based on such knowledge. Hospital does not have written documentation of patient wishes concerning chosen proxy for medical decisions. Per PA [id number], in absence of written documentation of patient wishes, pt's proxy for medical decisions would be patient's four adult sons and her adult daughter with equal authority. Pt verbalized that she does not have and advanced directive but she chooses her son Jon Welch ([phone]) to serve as primary proxy and her other children as back up proxy for medical decisions in the event she lacks decisional capacity. Pt does not currently require a proxy for medical decisions. (3) Counseling regarding goals of care: Pt and family shared concern for quality of life. Pt shared that she does not want any further life prolonging treatments, requests comfort directed care and stated that she is aware that without interventions for her apparent LGIB, she will . She shared that she will not take any further medications or therapies intended to prolong life because "I am done, I am just waiting for my time to run out". We discussed that with transition to comfort directed care, all labs, diagnostics and life prolonging therapies cease and medications/therapies geared towards assuring patient comfort continue while allowing for a peaceful and dignified . Pt is agreement that this is her wish and questioned hospice involvement. Discussed hospice benefit: an interdisciplinary program offered by nurses, nurses aides, social workers, chaplains and a medical coding manager for patients with a terminal condition and a life expectancy of less than 6 months. This is covered by Medicare at 100%/no out of pocket expense to patient and all meds/supplies needed by patient for the reason they are on hospice are paid for/covered by hospice. The goal is assure quality of life of the patient in their home setting (home, fpc, inpatient hospice setting) by providing symptoms management, psychosocial and spiritual support. However, they cannot offer 24 hours care and if the family is unable to provide that care, they will have to consider personal care with out of pocket cost vs. fpc placement. We discussed the goals of hospice as a patient service and the goals of care; we discussed EOL trajectories and transitions aminata the emotional impact of realizing mortality as a concrete reality from prior abstract considerations. Pt was reassured that no matter where they are along this trajectory, they are n ot alone - their medical team will remain by their side through their journey. Discussed the pros/cons of accepting help when especially weakened and distressed by pain-which would also help provide relief/decrease caregiver burden/strain. Anticipatory guidance offered. Discussed changes pt may move through in the dying process including but not limited to sleeping more, disorientation when awake, restlessness, diminished senses/inability to respond to stimulus although ability to be aware of them remains intact longer, and changes in body temperatures, skin changes/mottling/cyanosis, respiratory pattern changes, and oral secretions. Family verbalized understanding. The goal is to assure a peaceful . Pt and her family expressed hope that the pt qualify for GIP and stay in hospital through her . Pt currently comfortable, but becoming more lethargic with transient hypotension. Encouraged visitation with family, reinforcing that if LGiB continues or worsens, she may within hours to days. (4) Comfort measures only status: transition to comfort directed care today per patient and family request. (5) Need for comfort care: EOL Symptom manamgement: Patient reports chronic lower back ache type pain 2/2 previous compression fractures, tylenol scheduled per pt request. Pt reports severe adverse reaction (projectile vomitting) to morphine in past and refuses morphine at end of life. Zofran also scheduled for ongoing nausea. Pain/dyspnea/tachypnea dilaudid 0.2mg IVP PRN [id number] Consider titratable morphine drip if pt requires >3 PRN doses in under two consecutive hours. Nausea/vomitting zofran 4mg IVP q4h PRN Agitation ativan 0.5mg IVP q4h PRN Hyperactive delirium haldol 5mg IVP q6h PRN Secretions - if repositioning not effective robinul 0.4mg IV q4h PRN atropine SL 3 drops Q1h PRN Nursing care: Discontinue all medications not directed towards comfort. Detether pt from IV tubing, monitor cables, and check vitals once per shift. Please continue HFNC and titrate down as able for patient comfort. Use medications above PRN for dyspnea/tachypnea and do not increase oxygen once titrated down. Assess q1h for pain/dyspnea and treat accordingly. Plan as above History of Present Illness Reason for Consultation: goals of care/hospice discussion Requesting Physician: Colin Aleman MD Attending Physician: Colin Aleman MD History of Present Illness Ms. Welch is an 82 year old female with a past medical history including atrial fibrillation with rapid ventricular response, urine tract infections, kidney stone history, rheumatoid arthritis, superior mesenteric artery stenosis, history of ICD, PAD, chronic anticoagulation with apixaban, left lower extremity ischemia, right lower extremity ischemia, COPD, cardiomyopathy and brain aneurysm who was admitted with failure to respond to outpatient treatment of UTI which aggravated her A fib. Patient has significant informatory rheumatoid arthritis which limits the quality of her life. She was preparing for discharge to SNF for rehab and developed heme positive maroon-red stools, pt and family now requesting comfort directed care. Allergies Allergy/AdvReac Type Severity Reaction Status Date / Time morphine AdvReac Intermediate NAUSEA Verified 08/26/24 15:50 Home Medications Medication Instructions Recorded Confirmed Type apixaban 2.5 mg tablet 2.5 mg PO BID #180 tabs 01/30/24 08/26/24 Rx clopidogrel 75 mg tablet 75 mg PO QAM #90 tabs 02/24/24 08/26/24 Rx dapagliflozin propanediol 10 mg 10 mg PO QAM #100 tabs 02/25/24 08/26/24 Rx tablet (Farxiga) sacubitril 49 mg-valsartan 51 mg 1 tab PO BID #180 tabs 05/12/24 08/26/24 Rx tablet (Entresto) prednisone 10 mg tablet 10 - 20 mg (1 - 2 x 10 mg) PO 06/28/24 08/26/24 Rx DAILY PRN pain #60 tabs furosemide 20 mg tablet (Lasix) 20 mg PO QAM #30 tabs 07/03/24 08/26/24 Rx digoxin 125 mcg (0.125 mg) tablet 0.125 mg PO .QOD #90 tabs 07/08/24 08/26/24 Rx metoprolol succinate 50 mg 50 mg PO QAM 07/11/24 08/26/24 History tablet,extended release 24 hr cefdinir 300 mg capsule 300 mg PO BID 10 days #20 caps 08/22/24 08/26/24 Rx tramadol 25 mg tablet 12.5 - 25 mg (0.5 - 1 x 25 mg) PO 08/22/24 08/26/24 Rx Q8H PRN pain #14 tabs Patient History Medical History Pulmonary hypertension RVSP 45 mmHg Chronic obstructive pulmonary disease History of seizure at age 20 ? reason Coagulopathy takes eliquis and plavix Prolonged QT interval Cardiac arrest 05/2021>event occured in [place] ED Hyperlipidemia Right ureteral stone GERD (gastroesophageal reflux disease) Surgical History History of cystoscopy wtih stent placed (current) History of tooth extraction History of lithotripsy History of thoracotomy FOR COLLAPSED LUNG - HAD WEDGE RESECTION LOWER RIGHT Hx of cataract extraction rt/left H/O foot surgery rt/left Family History Mother Arthritis Father Congestive heart failure (CHF) Aunt Breast cancer Sister Stroke Other No family history of adverse response to anesthesia Thoracic aortic aneurysm Denies family history of Ovarian cancer Prostate cancer Diabetes Myocardial infarction Lung cancer Colorectal cancer Social History Smoking Status: Former smoker Tobacco Type: Cigarettes Age Started Using Tobacco: 16; Age Quit Using Tobacco: 45; packs per day: 0.5; Smoking End Date: 40 yrs ago; Second Hand Exposure: Yes (as a child); Do You Dip or Chew Tobacco: No; Hx Alcohol Use: No Hx Substance Use: No Preferred Language: Indonesian Communication Ability: Effective Visual Impairment: Limited Hearing Ability: Normal 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 Beliefs That Will Affect Care: None marital status: / Current Living Situation: Alone current occupational status: retired How many Children do You have: 5 Other Information That Helps Us Care for You: No Feels Safe at Home: Yes Safety Concerns: Feels Safe At This Time Childhood Exposure to Second-Hand Smoke: Yes (dad did off and on ) caffeine: Yes (coffee) Dental Care, Regularly: No Physical Activity Frequency: Daily Physical Activity Frequency Comment: walks daily Seatbelt Use: always Sunscreen Use: Yes Assistive Devices: Cane and Walker Review of Systems Review of Systems: All systems reviewed & are unremarkable except as noted in HPI & below Musculoskeletal: pt c/o mild lower back pain which she sttes is chronic and well manag with tylenol Physical Exam Constitutional: WD/WN, vitals as above Eyes: PERRL, conjunctivae normal, anicteric sclerae Respiratory: normal respiratory effort, lungs clear to auscultation Cardiovascular: RRR, no murmur, no edema Gastrointestinal (Abdomen): normal bowel sounds, soft, nontender, no hepatosplenomegaly Musculoskeletal: no cyanosis or clubbing, extremities motor strength 5/5 Skin: no rashes, warm and dry + pallor Neurologic: PERRL, EOMI, accommodation nl, no face palsy, no dysarthria Psychiatric: A+Ox3, euthymic affect Results & Data Vital Signs (Past 12 Hours) Vital Signs Temp Pulse Pulse Resp BP Pulse Ox O2 Del Method 09/02/24 07:00 36.3 C L 102 H 14 91/57 L 97 Room Air 09/02/24 03:05 36.7 C 106 H 18 93/69 L 97 Room Air 09/01/24 23:16 36.4 C L 106 H 16 95/63 L 92 Room Air 09/01/24 22:38 102 H Laboratory Results Abnormal lab results 09/01/24 09/01/24 Range/Units 15:00 Unknown RBC 4.16 L (4.20-5.40) M/uL RDW Std Deviation 59.3 H (36.4-46.3) fL RDW Coeff of Libra 17.4 H (11.5-14.5) % MPV 9.0 L (9.4-12.4) fL Sodium 135 L (136-145) mmol/L Carbon Dioxide 19 L (21-32) mmol/L Anion Gap 15 H (3-11) BUN 44 H (6-23) mg/dl Creatinine 1.66 H (0.6-1.2) mg/dl BUN/Creatinine Ratio 26.5 H (10-20) Glucose 106 H (70-99(Fasting)) mg/dl Stool Occult Bld Scrn Positive A (Negative) Diagnostic Findings Chest X-Ray 08/26/24 14:51 XR chest 1V portable CLINICAL HISTORY: weakness COMPARISON STUDY: 08/22/2024 FINDINGS: No significant interval change has occurred. Postoperative vero identified in the right pulmonary apex. Chronic blunting of the right costophrenic angle. There is chronic cardiomegaly and pulmonary vascular congestion. There is no acute pulmonary process identified. Pacemaker remains in place. IMPRESSION: Stable exam; no acute findings ACT 112: Negative or not required by law. Electronically signed by: Karely Oden M.D. 08/26/2024 3:[address] 09/01/24 14:52 CT head/brain wo con CLINICAL HISTORY: 84 years-old Female with AMS. Acutely altered mental status TECHNIQUE: Multiple axial CT images of the head were obtained without contrast. A dose lowering technique was utilized adhering to the principles of ALARA. CT DOSE: 703.85 mGy.cm COMPARISON: 05/25/2021 FINDINGS: No acute intracranial hemorrhage, midline shift, intracranial mass, hydro cephalus, territorial ischemia or abnormal extra-axial collection. Involutional changes with white matter hypodensities suggestive of chronic microvascular ischemic disease. Cerebrovascular calcifications. The calvarium is intact. Prior bilateral lens repair. The paranasal sinuses, mastoid air cells, and middle ear cavities are clear. IMPRESSION: No acute intracranial abnormality. ACT 112: Negative or not required by law. The above report was generated using voice recognition software. It may contain grammatical, syntax or spelling errors. Electronically signed by: Gabino Rosales M.D. 09/01/2024 3:58 PM Medications Administered Current Inpatient Medications Acetaminophen (Acetaminophen 325 Mg Tab) 650 mg PO Q4H PRN PRN Reason: Pain or Fever Stop: 09/25/24 19:27 Last Admin: 09/02/24 06:17 Dose: 650 mg Digoxin (Digoxin 0.125 Mg Tab) 0.125 mg PO Q48H AAKASH Stop: 09/26/24 08:59 Last Admin: 08/31/24 09:12 Dose: 0.125 mg Metoprolol Succinate (Metoprolol Succ 50mg Ext Rel Tab) 50 mg PO BID AAKASH Stop: 09/27/24 20:59 Last Admin: 09/01/24 20:28 Dose: 50 mg Metoprolol Tartrate (Metoprolol Tartrate 1 Mg/Ml Vial) 5 mg IV Q4 PRN PRN Reason: sbp > 185, dbp >95, HR >120 Stop: 09/25/24 19:27 Last Admin: 08/26/24 19:36 Dose: 5 mg Miscellaneous (Dapagliflozin Propanediol [Farxiga] 10 Mg Tablet--Order Awaiting Action) 1 each N/A QS AAKASH Stop: 09/26/24 00:00 Last Admin: 08/27/24 09:33 Dose: Not Given Ondansetron HCl (Ondansetron Inj 2 Mg/Ml 2 Ml Vial) 4 mg IV Q6H PRN PRN Reason: Nausea Stop: 09/25/24 19:27 Last Admin: 08/30/24 07:15 Dose: 4 mg Sacubitril/Valsartan (Valsartan/Sacubitril 51/49 Mg Tab) 1 tab PO BID [facility] Stop: 09/25/24 20:59 Last Admin: 09/01/24 20:28 Dose: 1 tab Tramadol HCl (Tramadol Hcl 50 Mg Tablet) 25 mg PO Q8H PRN PRN Reason: Pain Stop: 09/25/24 19:45 Last Admin: 08/29/24 20:43 Dose: 25 mg PG Care Time/CCT Total # of Minutes Spent Total Time Spent with Patient: Total time spent is greater than 50% in coordination of care (as documented) at patient's floor/unit and/or counseling patient: Advanced Care Planning 36038 Advanced Care Planning 30 [place] [address] IN/OBS CONSULT LVL 4,60M Patient Type New History Expanded Problem Focused Exam Expanded Problem Focused Medical Decision Making Moderate Complexity Diagnoses Palliative care by specialist Z51.5 Counseling regarding end of life decision making Z71.89 Counseling regarding goals of care Z71.89 Comfort measures only status Z51.5 Need for comfort care Additional Codes Advanced Care Planning - 33765 Advanced Care Planning 30 Min: 59909 Advanced Care Planning 30 Min ([id number])
[2024-09-02 15:49] VITALS: BP 102/69; PULSE 60; RESP 17; TEMP 98.3; O2SAT 96
--- NOTE | 2024-09-02 21:25 | Death Pronouncement Note ---
Date of Service September 02, 2024 Pronouncement Note Admission Date Admission Date: August 26, 2024 Contributing Factors (1) Heme positive stool: Summary Additional details: I was called to pronounce the of Nikki Welch ( 1940) by nurse on 09/02/24. Upon entering the room, patient was found to be in a terminal state. They were unresponsive to, and did not withdrawal from, verbal or tactile stimuli. They were unresponsive to pupillary reflexes. On cardiopulmonary exam, they were found to be without detectable radial pulses, and without spontaneous heart tones or respirations. Time of was pronounced by me on 09/02/2024 at 21:15. Attending physician was notified was notified. Next of kin (3 sons) were present in the room for the pronouncement. All questions answered. Advised family to let nurse know if any further questions or concerns. Signed: Monika Bishop DO Additional Data Attending physician: Colin Aleman MD Resident Activity Tracking Resident Involvement: Resident Care Provided Care Provided: Adult Hospital Medicine
--- NOTE | 2024-09-03 07:32 | Discharge Summary ---
Discharge Summary Date of Service September 03, 2024 Principal Dx & Hospital Course #1 = Principal Diagnosis (1) Physical deconditioning: -pt not having much PO intake -physically is tired, exhausted and not wanting to continue medical treatment -Pt and family requesting comfort care and hospice evaluation -palliative care consulted -pt is DNR/DNI -pt was made comfort care - 09/02/24 at 21:15 (2) Atrial fibrillation: -HR improved without cardizem drip -con't digoxin -lopressor 5mg IV PRN -cardiology consult appreciated -Toprol increased to 50mg BID (3) Acute UTI: -abx dc'd -Urine cultures negative (4) Heart failure with reduced ejection fraction: con't digoxin Farxiga metoprolol and Entresto Plan 82-year-old female with a past medical history including atrial fibrillation with rapid ventricular response, urine tract infections, kidney stone history, rheumatoid arthritis, atrial fibrillation, superior mesenteric artery stenosis, history of ICD, PAD, chronic anticoagulation with apixaban, left lower extremity ischemia, right lower extremity ischemia, COPD, cardiomyopathy and brain aneurysm. Patient has significant informatory rheumatoid arthritis which limits the quality of her life. She endorses to treat things in a more simple manner but not with significant aggressive therapies. She did have her AICD turned off a few months ago PT requesting to be made comfort care at this time Palliative care consulted Patient reinforces that she is a DNR and she says when her time comes as her time ago Admission HPI Per Admitting Provider 82-year-old female with a past medical history including atrial fibrillation with rapid ventricular response, urine tract infections, kidney stone history, rheumatoid arthritis, atrial fibrillation, superior mesenteric artery stenosis, history of ICD, PAD, chronic anticoagulation with apixaban, left lower extremity ischemia, right lower extremity ischemia, COPD, cardiomyopathy and brain aneurysm. Patient has significant informatory rheumatoid arthritis which limits the quality of her life. She endorses to treat things in a more simple manner but not with significant aggressive therapies. She did have her AICD turned off a few months ago She presents after failing outpatient therapy for urinary tract infection which subsequently has worsened atrial fibrillation rapid ventricular response Discharge Exam unable to assess Discharge Plan Discharge Items Patient Disposition: Other Date/Time: 09/02/24 21:15 Hospital Stay Data Consultations 08/26/24 16:01 ED Decision to Admit Stat 08/26/24 16:59 ED Decision to Admit Stat 08/28/24 08:34 Consult Cardiology Routine 09/01/24 17:20 Consult Gastroenterology Routine 09/02/24 07:51 Consult Palliative Care Routine Diagnostic Imagining Performed 09/01/24 14:52 CT head/brain wo con Stat Total Time Total Time Spent Total Time Spent (In Minutes): 50 Coding Level of Care Code 10839 INP/OBS DISCH >30 MIN Diagnoses Physical deconditioning R53.81 Atrial fibrillation I48.91 Acute UTI N39.0 Heart failure with reduced ejection fraction I50.20
--- NOTE | 2024-09-04 07:26 | Coding Query ---
CONGESTIVE HEART FAILURE To Promote full compliance with coding requirements relating to patient care, physician participation is requested in all cases of medical insurance coder uncertainty. Please assist us with the following questions. A diagnosis of Congestive Heart Failure is documented in the patient's medical record. To accurately code this diagnosis and to compare patient severity, we ask that you specify the type of heart failure by placing an X within the parenthesis (x). SYSTOLIC HEART FAILURE ( ) Acute ( x) Chronic ( ) Acute on Chronic ( ) Rheumatic ( ) Unknown DIASTOLIC HEART FAILURE ( ) Acute ( ) Chronic ( ) Acute on Chronic ( ) Rheumatic ( ) Unknown COMBINED SYSTOLIC AND DIASTOLIC HEART FAILURE ( ) Acute ( ) Chronic ( ) Acute on Chronic ( ) Rheumatic ( ) Unknown Was the CHF Present On Admission? Please check the appropriate box: ( ) Present on Admission ( ) Not Present On Admission ( x) Clinically undetermined Thank you Carline MONTALVO
== END 2024-09-02 23:12 | disposition expired ==
LOC: SUATTDRO → ED 13:54 → EDINP 17:06 → SUATTDRO 17:06 → 4W 20:36 → 3N 09-02 15:21